=== PATIENT | male | born 1950 | race Caucasian/White ===

== ENCOUNTER → 2017-03-21 | Outpatient (CLI) | payer MEDICARE, OTHER, SELFPAY | PROVIDERS: Family Provider Family Medicine; PCP Family Medicine; Visit Provider Family Medicine | DX: E53.8 Deficiency of other specified B group vitamins (principal); G60.9 Hereditary and idiopathic neuropathy, unspecified; I35.1 Nonrheumatic aortic (valve) insufficiency; J44.9 Chronic obstructive pulmonary disease, unspecified; R29.898 Other symptoms and signs involving the musculoskeletal system | CPT/HCPCS: 36415; 80053; 82607; 84443; 85025 ==

== ENCOUNTER 2017-11-05 18:44 | Emergency (ER) | payer OTHER, SELFPAY ==
[2017-11-05 19:28] VITALS: BP 133/91; PULSE 97; RESP 20; TEMP 36.4; O2SAT 96; BMI 38.0
[2017-11-05] MEDS: TET,DIPH,PERTUSS(ACELL),VAC/PF 0.5 ML SYRINGE IM (20:11)
--- NOTE | 2017-11-05 20:12 | ED_ITS ---
HPI - Skin/Abscess/Foreign Bdy General Chief complaint: Skin/Abscess/Foreign Body Stated complaint: LEFT HAND FINGER LACERATION Time Seen by Provider: 11/05/17 19:37 Source: patient Mode of arrival: ambulatory Limitations: no limitations History of Present Illness HPI narrative: Patient is a 66-year-old male who presents with left index finger laceration. He was cutting vegetables for dinner when he cut his finger. He said it was bleeding a lot. No blood thinners. Denies numbness or tingling. No decreased range of motion. Bleeding stopped after pressure applied. Related Data Home Medications Medication Instructions Recorded Confirmed tamsulosin [Flomax] 0.4 mg PO QDAYP PRN #0 cap 01/07/13 09/14/17 cyanocobalamin (vitamin B-12) 1,000 mcg PO QDAY #0 04/04/17 09/14/17 naproxen sodium [Aleve] 660 mg PO QDAY #0 04/04/17 09/14/17 diphenhydramine 25 mg capsule 25 mg PO Q4-6H PRN 09/14/17 09/14/17 Previous Rx's Medication Instructions Recorded levothyroxine 0.137 mg PO HS #90 tab 11/15/16 albuterol sulfate [Proventil HFA] 2 puff INH Q4HP #6 inh 11/17/16 beclomethasone dipropionate [Qvar] 2 puff INH BID #3 inh 11/17/16 chlorthalidone 25 mg PO QDAY #90 tab 11/17/16 ipratropium-albuterol [Combivent 1 puff INH QID #12 inh 11/17/16 Respimat] hydrocodone 5 mg-acetaminophen 325 1 tab PO HSP PRN #30 tab 10/11/17 mg tablet Allergies Allergy/AdvReac Type Severity Reaction Status Date / Time animal dander [ANIMAL DANDER] Allergy Unknown Verified 11/05/17 19:32 crab [CRAB] Allergy Unknown Verified 11/05/17 19:32 pollen extracts Allergy Unknown Verified 11/05/17 19:32 [POLLEN EXTRACTS] Review of Systems Review of Systems GENERAL: Denies chills,fever HEENT: Denies throat pain RESPIRATORY: Denies dyspnea, cough, wheezing CARDIOVASCULAR: Denies chest pain, palpitations GASTROINTESTINAL: Denies nausea, vomiting MUSCULOSKELETAL: Denies extremity pain, injury SKIN: See HPI NEUROLOGIC: Denies weakness, dizziness, headache, numbness 8 point review of systems is negative except for those stated above and HPI REPLACED BY [facility] Medical History COPD (chronic obstructive pulmonary disease) (Chronic) Cervical spine disease (Chronic 2011) Eczema (Chronic) Emphysema/COPD (Chronic 1997) Hypothyroidism (Chronic 2014) CTS (carpal tunnel syndrome) (Resolved) Leukocytosis (Resolved) Prostate cancer (Resolved 2010) Thrombocytosis (Resolved) Surgical History History of spinal fusion (Resolved 2012) History of splenectomy (Resolved 1975) Status post wrist surgery (Resolved 2011) Family History Brother Thyroid cancer Mother Breast cancer Social History Smoking Status: Former smoker Exam Initial Vital Signs Initial Vital Signs: Vital Signs Temperature 97.5 F L 11/05/17 19:28 Pulse Rate 97 H 11/05/17 19:28 Respiratory Rate 20 11/05/17 19:28 Blood Pressure 133/91 H 11/05/17 19:28 Pulse Oximetry 96 11/05/17 19:28 GENERAL: Well-appearing, well-nourished and in no acute distress. CARDIOVASCULAR: peripheral pulses in tact, cap refill <2 sec RESPIRATORY: No respiratory distress, speaks in full sentences without difficulty EXTREMITIES: Normal range of motion, no clubbing or edema. Neurovascularly intact NEUROLOGICAL: Cranial nerves II through XII grossly intact. Normal gait and speech. SKIN: 2 cm laceration distal palmar side left index finger good skin approximation deep structures intact no foreign body Procedures Laceration Repair Laceration 1: Site: hand Side (If applicable): left Size (cm): 2 Description: linear Depth: simple, single layer Size (cm): other (Steri-Strips, Surgicel) Course Orders Ordered: Discontinued Medications Diphtheria/Tetanus/Acell Pertussis (Adacel) 0.5 ml IM .ONCE ONE Stop: 11/05/17 20:03 Last Admin: 11/05/17 20:11 Dose: 0.5 ml Vital Signs - 8 hr 11/05/17 19:28 Temperature 97.5 F L Pulse Rate 97 H Respiratory Rate 20 Blood Pressure 133/91 H Pulse Oximetry 96 Discharge Plan Departure Patient Disposition: Home, Self-Care Clinical Impression: Laceration of left index finger Discharge Date/Time: 11/05/17 20:20 Interventions: ED Discharge Assessment Last Done: 11/05/17 20:20 Instructions: DI for Laceration Repair Steri-Strips Activity Restrictions/Additional Instructions: *You have been diagnosed with laceration left index *What to do: May remove bandage not tomorrow. Steri-Strips will fall off on their own *Continue to take medications as directed *Follow up with your primary care provider in 2-3 days *Return to ER if you should have redness, pus, swelling or any new, worsening or concerning symptoms Prescriptions: No Action tamsulosin [Flomax] 0.4 MG capsule,extended release 24hr 0.4 mg PO QDAYP PRNQty: 0 RF: 0 levothyroxine 137 MCG tablet 0.137 mg PO HS Qty: 90 RF: 3 chlorthalidone 25 MG tablet 25 mg PO QDAY Qty: 90 RF: 3 beclomethasone dipropionate [Qvar] 80 MCG/PUFF aerosol 2 puff INH BID Qty: 3 RF: 3 albuterol sulfate [Proventil HFA] 90 MCG/PUFF HFA aerosol inhaler 2 puff INH Q4HP Qty: 6 RF: 3 ipratropium-albuterol [Combivent Respimat] 4 GM mist 1 puff INH QID Qty: 12 RF: 11 cyanocobalamin (vitamin B-12) 1,000 MCG tablet extended release 1,000 mcg PO QDAY Qty: 0 RF: 0 naproxen sodium [Aleve] 220 MG tablet 660 mg PO QDAY Qty: 0 RF: 0 hydrocodone-acetaminophen [[place]] 5-325 mg tablet 1 tab PO HSP PRN (Reason: pain) Qty: 30 RF: 0 diphenhydramine HCl [Allergy (diphenhydramine)] 25 mg capsule 25 mg PO Q4-6H PRNRF: 0 Referrals: Kyree Hudson MD [Primary Care Provider] -
--- NOTE | 2017-11-05 20:19 | PC.NURSE ---
lt 2nd digit laceration, repaired with steri strips and surgicell by MD prior to RN contact, bleeding controlled, dressed with gauze and coban per order, distal cms intact
== END 2017-11-05 20:20 | disposition home or self-care (01) ==
PROVIDERS: Emergency Provider Emergency Medicine; Family Provider Family Medicine; PCP Family Medicine
DX: S61.211A Laceration without foreign body of left index finger without damage to nail, initial encounter (principal); W26.0XXA Contact with knife, initial encounter
CPT/HCPCS: 12001; 90471; 99282; 99283; 90715

== ENCOUNTER → 2017-11-20 08:49 | Outpatient (CLI) | payer OTHER, SELFPAY ==
[2017-11-20 10:47] LABS: Erythrocyte Sedimentation Rate 4 MM/HR (0-15)
[2017-11-20 11:02] LABS: Alanine Aminotransferase 32 IU/L (21-72); Albumin 4.1 g/dL (3.5-5.0); Albumin Globulin Ratio 1.4 (1.0-2.8); Alkaline Phosphatase 67 U/L (38-126); Aspartate Aminotransferase 25 IU/L (17-59); BUN Creatinine Ratio 28.9 (6-22); Bilirubin Total 0.4 mg/dL (0.2-1.3); Blood Urea Nitrogen 26 mg/dL (9-20); C-Reactive Protein Quant 0.8 mg/dL (<1.0); Carbon Dioxide 31 mmol/L (22-32); Chloride 101 mmol/L (98-107); Estimated Glomerular Filt Rate > 60.0 mL/min (>60); Glucose 83 mg/dL (80-110); HEMOLYSIS < 15 (0-50); Lactate Dehydrogenase 579 U/L (313-618); Sodium 141 mmol/L (137-145); Total Protein 7.1 g/dL (6.3-8.2)
[2017-11-20 11:09] LABS: Potassium 5.4 mmol/L (3.4-5.1)
[2017-11-21 15:04] LABS: Add Manual Diff / Slide Review NO; Basophils Percent Auto 1.5 % (0-2); Eosinophils Percent Auto 7.9 % (2-4); Hematocrit 44.5 % (41-53); Hemoglobin 14.8 g/dL (13.5-17.5); Lymphocytes Percent Auto 20.3 % (25-40); Mean Corpuscular HGB Conc 33.3 % (30-36); Mean Corpuscular Hemoglobin 30.8 PG (26-34); Mean Corpuscular Volume 92.5 fL (80-100); Monocytes Percent Auto 12.5 % (3-14); Neutrophils Absolute Auto 8300 /uL (3000-5900); Neutrophils Percent Auto 57.8 % (50-75); Platelet Count 565 X10^3/uL (150-400); Red Blood Cell Count 4.81 X10^6/uL (4.5-5.9); Red Cell Distribution Width 13.3 % (11.6-14.8); White Blood Cell Count 14.4 X10^3/uL (4.5-11.0)
--- NOTE | 2017-12-05 11:25 | ONC.NAV ---
Description: T/C re: care plan status/transfer of care clarification Activity: Called pt to clarify what his plan is for continued oncologic care. He no-showed at [facility] yesterday, after having had his records faxed over there several weeks ago. He had initially self-referred there due to wanting to have his bone marrow bx done in their OR, which wasn't possible here at . Pt states that he forgot about the appointment yesterday, however, it was his understanding that he was waiting for blood test results to be in before he came back for another appointment. He ultimately stated that he will be in [place] all of December, and would like [facility] to call him back 01/08 to return to their clinic. Once a plan has been established, he will plan to transfer his care back to . Will relay this info to Mg.
== END ==
PROVIDERS: Family Provider Family Medicine; PCP Family Medicine; Visit Provider Internal Medicine Hematology & Oncology
DX: D47.3 Essential (hemorrhagic) thrombocythemia (principal)
CPT/HCPCS: 36415; 80053; 83615; 85025; 85651; 86140

== ENCOUNTER → 2018-01-17 15:12 | Outpatient (CLI) | payer OTHER, SELFPAY ==
[2018-01-17 16:07] LABS: Alanine Aminotransferase 70 IU/L (21-72); Albumin Globulin Ratio 1.4 (1.0-2.8); Alkaline Phosphatase 66 U/L (38-126); Aspartate Aminotransferase 46 IU/L (17-59); BUN Creatinine Ratio 35.5 (6-22); Bilirubin Total 0.4 mg/dL (0.2-1.3); Blood Urea Nitrogen 39 mg/dL (9-20); Calcium 9.5 mg/dL (8.4-10.2); Carbon Dioxide 30 mmol/L (22-32); Chloride 104 mmol/L (98-107); Estimated Glomerular Filt Rate > 60.0 mL/min (>60); Globulin 2.8 g/dL (1.7-4.1); Glucose 108 mg/dL (80-110); HEMOLYSIS < 15 (0-50); Potassium 4.4 mmol/L (3.4-5.1); Sodium 144 mmol/L (137-145); Total Protein 6.8 g/dL (6.3-8.2)
== END ==
PROVIDERS: PCP Family Medicine; Visit Provider Internal Medicine
DX: E87.5 Hyperkalemia (principal); Z82.49 Family history of ischemic heart disease and other diseases of the circulatory system
CPT/HCPCS: 36415; 80053

== ENCOUNTER → 2018-08-12 14:51 | Outpatient (CLI) | payer OTHER, SELFPAY ==
[2018-08-12 15:36] LABS: Add Manual Diff / Slide Review NO; Basophils Absolute Auto 100 /uL (0-100); Basophils Percent Auto 0.6 % (0-2); Eosinophils Absolute Auto 800 /uL (0-450); Eosinophils Percent Auto 5.7 % (2-4); Hematocrit 43.6 % (41-53); Hemoglobin 14.1 g/dL (13.5-17.5); Lymphocytes Absolute Auto 2900 /uL (1100-4500); Lymphocytes Percent Auto 20.9 % (25-40); Mean Corpuscular HGB Conc 32.3 % (30-36); Mean Corpuscular Hemoglobin 29.8 PG (26-34); Mean Corpuscular Volume 92.1 fL (80-100); Monocytes Absolute Auto 1400 /uL (0-900); Neutrophils Absolute Auto 8800 /uL (1500-7000); Neutrophils Percent Auto 62.8 % (50-75); Platelet Count 570 X10^3/uL (150-400); Red Blood Cell Count 4.73 X10^6/uL (4.5-5.9); Red Cell Distribution Width 13.2 % (11.6-14.8)
[2018-08-12 15:57] LABS: Alanine Aminotransferase 36 IU/L (21-72); Albumin 3.8 g/dL (3.5-5.0); Albumin Globulin Ratio 1.3 (1.0-2.8); Alkaline Phosphatase 75 U/L (38-126); Aspartate Aminotransferase 25 IU/L (17-59); BUN Creatinine Ratio 25.6 (6-22); Bilirubin Total 0.2 mg/dL (0.2-1.3); Blood Urea Nitrogen 23 mg/dL (9-20); Calcium 8.6 mg/dL (8.4-10.2); Carbon Dioxide 25 mmol/L (22-32); Chloride 105 mmol/L (98-107); Cholesterol 139 mg/dL (140-199); Estimated Glomerular Filt Rate > 60.0 mL/min (>60); Glucose 89 mg/dL (80-110); HDL Cholesterol 46 mg/dL (40-60); HEMOLYSIS < 15 (0-50); LDL Cholesterol Calculated 64 mg/dL (<100); Potassium 4.1 mmol/L (3.4-5.1); Sodium 141 mmol/L (137-145); Total Protein 6.8 g/dL (6.3-8.2); Triglycerides 143 mg/dL (35-150)
[2018-08-12 16:14] LABS: Free T4, Direct Thyroxine 0.82 ng/dL (0.78-2.19)
[2018-08-12 16:29] LABS: Thyroid Stimulating Hormone 7.87 uIU/mL (0.47-4.68)
[2018-08-12 20:14] LABS: Prostate Specific Antigen < 0.064 ng/mL (0.10-4.00)
== END ==
PROVIDERS: PCP Internal Medicine; Visit Provider Urology
DX: C61 Malignant neoplasm of prostate (principal); E03.9 Hypothyroidism, unspecified; E66.9 Obesity, unspecified; D47.3 Essential (hemorrhagic) thrombocythemia; D72.829 Elevated white blood cell count, unspecified
CPT/HCPCS: 36415; 80053; 80061; 84153; 84439; 84443; 85025

== ENCOUNTER → 2018-09-20 10:38 | Outpatient (CLI) | payer OTHER, SELFPAY ==
[2018-09-20 11:50] LABS: Free T4, Direct Thyroxine 1.18 ng/dL (0.78-2.19)
[2018-09-20 12:04] LABS: Thyroid Stimulating Hormone 2.11 uIU/mL (0.47-4.68)
== END ==
PROVIDERS: PCP Internal Medicine; Visit Provider Nurse Practitioner
DX: E03.9 Hypothyroidism, unspecified (principal)
CPT/HCPCS: 36415; 84439; 84443

== ENCOUNTER → 2019-03-21 14:33 | Outpatient (CLI) | payer SELFPAY ==
[2019-03-21 15:30] LABS: Alanine Aminotransferase 23 IU/L (<50); Albumin 4.1 g/dL (3.5-5.0); Albumin Globulin Ratio 1.3 (1.0-2.8); Alkaline Phosphatase 77 U/L (38-126); Aspartate Aminotransferase 26 IU/L (17-59); BUN Creatinine Ratio 34.4 (6-22); Bilirubin Total 0.4 mg/dL (0.2-1.3); Blood Urea Nitrogen 31 mg/dL (9-20); Calcium 9.1 mg/dL (8.4-10.2); Carbon Dioxide 29 mmol/L (22-32); Chloride 101 mmol/L (98-107); Estimated Glomerular Filt Rate > 60.0 mL/min (>60); Globulin 3.2 g/dL (1.7-4.1); Glucose 104 mg/dL (80-110); HEMOLYSIS < 15 (0-50); Potassium 4.3 mmol/L (3.4-5.1); Sodium 138 mmol/L (137-145); Total Protein 7.3 g/dL (6.3-8.2)
[2019-03-21 16:00] LABS: Free T4, Direct Thyroxine 1.17 ng/dL (0.78-2.19)
[2019-03-21 16:14] LABS: Thyroid Stimulating Hormone 1.13 uIU/mL (0.47-4.68)
== END ==
PROVIDERS: PCP Internal Medicine; Visit Provider Internal Medicine
DX: E03.9 Hypothyroidism, unspecified (principal); G60.9 Hereditary and idiopathic neuropathy, unspecified
CPT/HCPCS: 36415; 80053; 84439; 84443

== ENCOUNTER → 2019-03-24 10:00 | Outpatient (CLI) | payer SELFPAY ==
--- NOTE | 2019-03-24 10:02 | DI.RAD.S_ITS ---
PROCEDURE: XR CHEST 2V INDICATIONS: cough TECHNIQUE: 2 views of the chest were acquired. COMPARISON: [facility], , RIBS UNILATERAL WITH PA CXR, 05/17/2015, 15:42. [facility], , CHEST 2 VIEW, 08/04/2011, 8:52. [facility], CR, CHEST 2 VIEW, 11/30/2010, 14:20. FINDINGS: Surgical changes and devices: Low cervical anterior fusion plate is noted, not present on the comparison chest plain films from 2011 but was present on and plain film series from May 2015. Lungs and pleura: Lungs are abnormal with a mild interstitial prominence. There is a small subpulmonic right pleural effusion and no pneumothoraX bilaterally. Mediastinum: Mediastinal contours are normal. Heart size is normal. Bones and chest wall: No suspicious bony abnormalities. Soft tissues appear unremarkable. IMPRESSION: Small subpulmonic right pleural effusion, chronic mild interstitial prominence. No worsening pleural effusion is seen. Dictated by: Cruz Elias M.D. on 03/24/2019 at 11:36 Approved by: Cruz Elias M.D. on 03/24/2019 at 11:37
--- NOTE | 2019-03-24 10:02 | DI.RAD.S_ITS ---
PROCEDURE: XR KNEE LT 3V INDICATIONS: left knee pain TECHNIQUE: 3 views of the knee were acquired. COMPARISON: None. FINDINGS: Bones: No fractures or dislocations but there is a moderately severe degree of degenerative knee joint osteoarthritis with medial compartment with near [id number] articulation a mild to moderate degree of lateral compartment and patellofemoral joint degenerative osteoarthritis also can be seen.. No suspicious bony lesions. Soft tissues: No joint effusion. No suspicious soft tissue calcifications. IMPRESSION: Tricompartmental degenerative knee joint osteoarthritis without effusion or loose body. Moderately severe osteoarthritis is present at the medial compartment. Dictated by: Cruz Elias M.D. on 03/24/2019 at 11:37 Approved by: Cruz Elias M.D. on 03/24/2019 at 11:39
== END ==
PROVIDERS: PCP Internal Medicine; Visit Provider Internal Medicine
DX: R05 Cough (principal); M25.562 Pain in left knee
CPT/HCPCS: 71046; 73562

== ENCOUNTER → 2019-10-03 08:26 | Outpatient (CLI) | payer OTHER, SELFPAY ==
[2019-10-03 09:51] LABS: Prostate Specific Antigen < 0.064 ng/mL (0.10-4.00)
== END ==
PROVIDERS: PCP Internal Medicine; Referring Provider Urology; Visit Provider Urology
DX: Z85.46 Personal history of malignant neoplasm of prostate (principal)
CPT/HCPCS: 36415; 84153

== ENCOUNTER 2019-10-11 13:52 | Emergency (ER) | payer OTHER, SELFPAY ==
[2019-10-11 14:09] VITALS: BP 132/88; PULSE 119; RESP 26; TEMP 37.2; O2SAT 93; BMI 48.4
[2019-10-11 14:40] VITALS: BP 132/88; PULSE 109; RESP 14; O2SAT 94
[2019-10-11 14:55] LABS: Add Manual Diff / Slide Review NO; Basophils Absolute Auto 200 /uL (0-100); Basophils Percent Auto 1.2 % (0-2); Eosinophils Absolute Auto 600 /uL (0-450); Eosinophils Percent Auto 3.5 % (2-4); Hematocrit 43.3 % (41-53); Hemoglobin 14.3 g/dL (13.5-17.5); Lymphocytes Absolute Auto 2500 /uL (1100-4500); Lymphocytes Percent Auto 15.6 % (25-40); Mean Corpuscular HGB Conc 32.9 % (30-36); Mean Corpuscular Volume 91.2 fL (80-100); Monocytes Absolute Auto 1400 /uL (0-900); Monocytes Percent Auto 8.3 % (3-14); Neutrophils Absolute Auto 11600 /uL (1500-7000); Neutrophils Percent Auto 71.4 % (50-75); Platelet Count 532 X10^3/uL (150-400); Red Blood Cell Count 4.75 X10^6/uL (4.5-5.9); Red Cell Distribution Width 14.4 % (11.6-14.8); White Blood Cell Count 16.3 X10^3/uL (4.5-11.0)
--- NOTE | 2019-10-11 15:10 | DI.CT.S_ITS ---
PROCEDURE: CT CHEST ABD PEL W CON INDICATIONS: fall onto ribs, sob, abd pain TECHNIQUE: After the administration of intravenous contrast, 5 mm thick sections acquired from the lung apices to the symphysis. 2.5 mm thick coronal and sagittal reformats were acquired. Additional 7 mm thick coronal maximum intensity projection (MIP) reformats acquired through the lungs. Optional 10-minute delayed imaging may be performed from the kidneys to the bladder. For radiation dose reduction, the following was used: automated exposure control, adjustment of mA and/or kV according to patient size. COMPARISON: None. FINDINGS: Image quality: Excellent. CHEST: Lungs: No pulmonary contusions or lacerations. No acute airspace opacities. No pneumothorax or hemothorax. Central and peripheral airways appear patent and normal in caliber. Mediastinum: No mediastinal hematomas. Heart size is normal. Coronary artery calcifications. No pericardial effusion. Thoracic aorta and pulmonary arteries demonstrate normal size and enhancement. No mediastinal or hilar adenopathy. Esophagus is normal in caliber. Hiatal hernia containing abundant fat without herniated stomach. Chest wall: Acute left fifth and sixth anterior lateral rib fractures. Multiple old healed left rib fractures. Acute right anterior sixth and seventh rib fractures. No subcutaneous emphysema. No axillary or supraclavicular adenopathy. Thyroid gland is unremarkable. ABDOMEN: Solid organs: Liver is normal in size and enhancement, without lacerations. Gallbladder is unremarkable. Biliary system is non-dilated. Pancreas enhances normally, without transection. Spleen is normal in size and enhancement, without lacerations. No adrenal hematomas. Both kidneys enhance normally, without hydronephrosis or lacerations. Peritoneum and bowel: No free fluid or air. Unenhanced bowel loops demonstrate normal wall thickness and caliber. Nodes and vessels: No retroperitoneal or mesenteric adenopathy. Aorta and inferior vena cava are normal in size and enhancement. Miscellaneous: No ventral hernias. PELVIS: Genitourinary: Bladder wall thickness is normal. Prostate implant seeds. Miscellaneous: No inguinal hernias or adenopathy. Bones: Pelvic ring and hip joints appear intact. No acute vertebral compression fractures. Old T4 compression fracture. No lytic or blastic bony lesions. Incidental note is made of the presence of severe bilateral bony foraminal narrowing at L5-S1. Remote lower cervical ACDF. IMPRESSION: 1. Acute fractures of the left fifth and sixth anterolateral ribs and right sixth and seventh anterior ribs. 2. No evidence of pneumothorax. 3. Numerous old rib fractures, old compression fracture. 4. Prostate implant seeds. 5. No evidence of metastatic disease. Dictated by: Negro Shaikh M.D. on 10/11/2019 at 14:55 Approved by: Negro Shaikh M.D. on 10/11/2019 at 15:07
[2019-10-11 15:13] LABS: Alanine Aminotransferase 14 IU/L (<50); Albumin 4.1 g/dL (3.5-5.0); Albumin Globulin Ratio 1.2 (1.0-2.8); Alkaline Phosphatase 94 U/L (38-126); Aspartate Aminotransferase 26 IU/L (17-59); BUN Creatinine Ratio 32.6 (6-22); Bilirubin Total 0.5 mg/dL (0.2-1.3); Blood Urea Nitrogen 29 mg/dL (9-20); Calcium 9.2 mg/dL (8.4-10.2); Carbon Dioxide 31 mmol/L (22-32); Chloride 102 mmol/L (98-107); Estimated Glomerular Filt Rate > 60.0 mL/min (>60); Globulin 3.5 g/dL (1.7-4.1); Glucose 146 mg/dL (80-110); HEMOLYSIS < 15 (0-50); Lipase 62 U/L (23-300); Potassium 4.1 mmol/L (3.4-5.1); Sodium 139 mmol/L (137-145); Total Protein 7.6 g/dL (6.3-8.2)
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
[2019-10-11 16:10] VITALS: BP 138/91; PULSE 105; RESP 15; O2SAT 93
[2019-10-11 17:10] VITALS: BP 142/93; PULSE 96; RESP 16; O2SAT 95
[2019-10-11] MEDS: HYDROCODONE/ACET 5/325 TABLET 1 TAB PO (17:18)
[2019-10-11] MEDS: LIDOCAINE PATCH 1 EACH ADH..PATCH TOP (17:18)
== END 2019-10-11 17:38 | disposition home or self-care (01) ==
PROVIDERS: Emergency Provider Nurse Practitioner Family; PCP Internal Medicine
DX: S22.43XA Multiple fractures of ribs, bilateral, initial encounter for closed fracture (principal); R06.02 Shortness of breath; J44.9 Chronic obstructive pulmonary disease, unspecified; W01.198A Fall on same level from slipping, tripping and stumbling with subsequent striking against other object, initial encounter
CPT/HCPCS: 71260; 74177; 80053; 81003; 83690; 85025; 86850; 86900; 86901; 93005; 99284; Q9967

== ENCOUNTER → 2019-12-18 13:37 | Outpatient (CLI) | payer OTHER, SELFPAY ==
[2019-12-22 09:44] LABS: COVID19 Sendout NOT DETECTED (Not Detect)
== END ==
PROVIDERS: PCP Internal Medicine; Visit Provider Physician Assistant
DX: Z11.59 Encounter for screening for other viral diseases (principal)
CPT/HCPCS: 87635

== ENCOUNTER → 2019-12-21 08:22 | Outpatient (CLI) | payer OTHER, SELFPAY ==
[2019-12-21 08:49] LABS: COVID19 -Nasal RAPID Negative (Negative)
== END ==
PROVIDERS: PCP Internal Medicine; Visit Provider Nurse Practitioner
DX: Z11.59 Encounter for screening for other viral diseases (principal)
CPT/HCPCS: 87635

== ENCOUNTER 2020-02-02 15:05 | Emergency (ER) | payer OTHER, SELFPAY ==
--- NOTE | 2020-02-02 | DI.RAD.S_ITS ---
PROCEDURE: XR SHOULDER LT MIN 2V INDICATIONS: KNOWN HUMERAL FRACTURE TECHNIQUE: 3 views of the shoulder were acquired. COMPARISON: [facility], CR, XR HUMERUS LT 2V, 02/02/2020, 16:04. Outside Facility, RG, XR SHOULDER 2V LEFT, 01/20/2020, 14:52. FINDINGS: Bones: This patient has a comminuted, impacted humeral neck fracture. This fracture was previously on the 01/20/2028 study, yet the fracture now appears more impacted. Numeral head is subluxed inferiorly within the glenoid fossa, yet without a randall dislocation. Cervical spine fixation hardware is seen. No suspicious lytic or blastic lesions are seen. Soft tissues: No suspicious soft tissue calcifications. The visualized lung demonstrates an unremarkable appearance. IMPRESSION: There is worsening of the previously seen humeral neck fracture, with greater impaction on the current study. Dictated by: Martín Forde M.D. on 02/02/2020 at 15:22 Approved by: Martín Forde M.D. on 02/02/2020 at 15:23
[2020-02-02 15:17] VITALS: BP 176/91; PULSE 103; RESP 16; TEMP 37.1; O2SAT 94; BMI 42.4
--- NOTE | 2020-02-02 15:30 | DI.RAD.S_ITS ---
PROCEDURE: XR HUMERUS LT 2V INDICATIONS: s/p fracture 1 wk ago in [place] TECHNIQUE: 2 views of the humerus were acquired. COMPARISON: Outside Facility, RG, XR SHOULDER 2V LEFT, 01/20/2020, 14:52. FINDINGS: Bones: Comminuted fracture of the left humeral neck and possibly humeral head. No dislocations. No suspicious bony lesions. Soft tissues: No suspicious soft tissue calcifications. IMPRESSION: Comminuted fracture of the left humeral neck and possibly humeral head Dictated by: Negro Shaikh M.D. on 02/02/2020 at 16:26 Approved by: Negro Shaikh M.D. on 02/02/2020 at 16:28
[2020-02-02] MEDS: MORPHINE 4 MG/ML INJ IV (15:39)
--- NOTE | 2020-02-02 15:40 | ED.UPPEXIN ---
HPI - Extremity Injury (Upper) <ORTIZ Gaines - Last Filed: 02/03/20 01:03> General Chief Complaint: Extremity Injury, Upper Stated Complaint: FRACTURE LEFT HUMERUS Time Seen by Provider: 02/02/20 15:14 Source: patient Mode of arrival: Wheelchair Limitations: physical limitation History of Present Illness HPI narrative: This is a 69-year-old male, former smoker, with medical history of hypertension, COPD, idiopathic peripheral neuropathy, low back pain presents to ED with family with chief complain of left humerus fracture. Patient reports he was vacationing in [facility] and he accidentally slipped and fell on left shoulder a week ago. He was evaluated at [facility] with x-ray test and was told he has a fracture in humerus. He has been managing his pain with [id number] aspirin and few tabs of tramadol. Patient reports 10/10 pain and bruise in left upper arm and posterior shoulder. Patient reports intact sensation distally and is able to move all fingers. Patient return to home this morning and came in to ED for an evaluation. Patient right dominant hand. Patient denies injury to skin with fracture, denies previous injury to left arm. Patient denies chest pain, breathing difficulty, or dizziness. Related Data Home Medications Medication Instructions Recorded Confirmed cyanocobalamin (vitamin B-12) 1,000 mcg PO QDAY #0 04/04/17 12/09/19 diphenhydramine HCl 25 mg capsule 25 mg PO Q4-6H PRN 09/14/17 12/09/19 naproxen sodium 220 mg capsule 660 mg PO DAILY cap 01/31/18 12/09/19 Previous Rx's Medication Instructions Recorded fluticasone propionate 50 2 spray NASAL BEDTIME #16 gram 03/24/19 mcg/actuation nasal spray,suspension levothyroxine 150 mcg tablet See Rx Instructions .ROUTE 05/12/19 .COMPLEX #90 tab chlorthalidone 25 mg tablet 25 mg PO QDAY #90 tab 08/22/19 duloxetine 30 mg capsule,delayed 30 mg PO DAILY #90 cap 08/22/19 release albuterol sulfate 90 mcg/actuation 2 puff INHALATION Q4HP PRN #2 10/06/19 aerosol inhaler device metoprolol succinate 50 mg capsule 50 mg PO DAILY #90 each 12/09/19 sprinkle, ext. release 24 hr tramadol 50 mg tablet 50 mg PO TID PRN #120 tab 12/09/19 ipratropium 20 mcg-albuterol 100 1 puff INHALATION QID #8 gram 12/17/19 mcg/actuation mist for inhalation ciclesonide 160 mcg/actuation 2 puff INHALATION BID #6.1 gram 01/14/20 aerosol inhaler hydrocodone-acetaminophen [[place]] 1 tab PO Q6H PRN #20 tab 02/02/20 Allergies Allergy/AdvReac Type Severity Reaction Status Date / Time animal dander [ANIMAL DANDER] Allergy Unknown Verified 12/18/19 13:35 crab [CRAB] Allergy Unknown Verified 12/18/19 13:35 pollen extracts Allergy Unknown Verified 12/18/19 13:35 [POLLEN EXTRACTS] Review of Systems <ORTIZ Gaines - Last Filed: 02/03/20 01:03> Review of Systems Narrative: General: Denies fever, chills, fatigue, malaise, sweats. HEENT: Denies sinus pain, ear pain, sore throat, difficulty swallowing, dizziness. Respiratory: Denies dyspnea, cough, wheezing, hemoptysis, sputum. Cardiovascular: Denies chest pain, palpitations, orthopnea, edema. Gastrointestinal: Denies nausea, vomiting, abdominal pain, diarrhea, constipation, melena. Musculoskeletal: See HPI Skin: See HPI Neurologic: Denies weakness, headache, numbness, change in speech, confusion, seizures, incoordination. Psychiatric: No concerning psychosocial issues. Patient History <ORTIZ Gaines - Last Filed: 02/03/20 01:03> Medical History Acquired insufficiency of aortic valve (Chronic 10/08/15) Chronic obstructive pulmonary disease (Chronic 01/19/11) Cobalamin deficiency (Chronic) CTS (carpal tunnel syndrome) (Resolved) Eczema (Chronic) Essential hypertension (Chronic) History of malignant neoplasm of prostate (Inactive) Hypothyroidism (Chronic 08/21/14) Idiopathic peripheral neuropathy (Chronic) Leukocytosis (Chronic 01/19/11) Low back pain of over 3 months duration (Chronic 11/15/16) Obesity (Chronic 01/19/11) Prostate cancer (Resolved 2010) Thrombocytosis (Chronic 01/19/11) Weakness of right lower extremity (Chronic 11/15/16) Surgical History History of spinal fusion (Resolved 2012) History of splenectomy (Resolved 1975) Status post wrist surgery (Resolved 2011) Family History Brother Thyroid cancer Mother Breast cancer Father No problems noted. 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 [employer]: [employer] travel history: recent () leisure activities: art (Photography), volunteer work and other (Traveling) Smoking Status: Former smoker Tobacco: How many years used: 15 Smokeless tobacco user: other (Cigarettes) quit status: quit date established (1989) second hand exposure: No alcohol intake: former substance use type: does not use Smoking Status: Former smoker alcohol intake frequency: 0-2 drinks per day Substance Use Type: does not use Exam <ORTIZ Gaines - Last Filed: 02/03/20 01:03> Narrative Exam Narrative: General appearance: well developed, well nourished, in no acute distress. Head: normocephalic, atraumatic, no scalp lesions, non-tender. ENT: Hearing grossly intact. Airway patent. Neck/Thyroid: neck supple, full range of motion, no visible masses or meningeal signs. No JVD, non-tender without lymphadenopathy. Skin: Dark ecchymosis in left upper arm. No skin injury associated with this. Warm and dry and appropriate color for ethnicity. Heart: no clubbing, no cyanosis, no edema. S1 and S2 normal. RRR w/o murmurs, clicks, or bruits. Lungs: Breathing even and slightly labored. No stridor. No accessory muscles used. Able to speak in full sentences. Chest: normal shape and expansion. Abdomen: non-obese, non-distended. Neurologic: alert and oriented. Cognitive exam, EXPERT WITNESS and PNS grossly intact on informal exam. Psych: good eye contact, normal affect. Initial Vital Signs Initial Vital Signs: Vital Signs Temperature 98.8 F 02/02/20 15:17 Pulse Rate 103 H 02/02/20 15:17 Respiratory Rate 16 02/02/20 15:17 Blood Pressure 176/91 H 02/02/20 15:17 Pulse Oximetry 94 02/02/20 15:17 Extrem Left upper extremity: shoulder/upper arm Details: abnormal to inspection, tenderness, abnormal ROM Details: held in an abnormal fashion Details: in ADduction; bt not in ABduction (Unable to abduct affected arm due to pain), pain with active ROM and pain with passive ROM and ecchymosis (Left upper arm); no lacerations, no deformity and no unsual warmth and hand Details: normal to inspection, neuromotor exam normal, neurosensory exam normal Details: radial nerve sensory function normal and ulnar nerve sensory function normal, vascular exam Details: radial pulse present and normal capillary refill, normal ROM of fingers and no swelling <Nehemias Parker DO - Last Filed: 02/03/20 07:40> Initial Vital Signs Initial Vital Signs: Vital Signs Temperature 98.8 F 02/02/20 15:17 Pulse Rate 103 H 02/02/20 15:17 Respiratory Rate 16 02/02/20 15:17 Blood Pressure 176/91 H 02/02/20 15:17 Pulse Oximetry 94 02/02/20 15:17 Procedures <ORTIZ Gaines - Last Filed: 02/03/20 01:03> Orthopedic Splinting/Casting Injury #1: Side: left Upper Extremity Injury Location: upper arm Upper Extremity Immobilizer: sling/shoulder immobilizer Post splinting neuro exam: intact Post splinting vascular exam: intact Placed by: Nursing Scores <ORTIZ Gaines Last Filed: 02/03/20 01:03> GCS Suhail coma scale eye opening: Spontaneous [place] coma scale verbal response: Orientated Suhail coma scale motor response: Obey commands Suhail coma scale total score: 15 Course <ORTIZ Gaines - Last Filed: 02/03/20 01:03> Orders Ordered: Discontinued Medications Morphine Sulfate (Morphine) 4 mg IV NOW ONE Stop: 02/02/20 15:31 Last Admin: 02/02/20 15:39 Dose: 4 mg Documented by: LYNN Morphine Sulfate (Morphine) 2 mg IV NOW ONE Stop: 02/02/20 17:51 Last Admin: 02/02/20 18:09 Dose: 2 mg Documented by: LYNN Consultations Consultation #1: COnsulted Dr. Fontenot with physical findings, x-ray test results. Recommended shoulder immobilizer affected arm and have him follow up at Orthopedic Clinic. Time: 16:45 Vital Signs Vital signs: Vital Signs - 8 hr 02/02/20 17:09 Pulse Rate 92 H Respiratory Rate 18 Blood Pressure 157/82 H Pulse Oximetry 98 <Nehemias Parker DO - Last Filed: 02/03/20 07:40> Orders Ordered: Discontinued Medications Morphine Sulfate (Morphine) 4 mg IV NOW ONE Stop: 02/02/20 15:31 Last Admin: 02/02/20 15:39 Dose: 4 mg Documented by: LYNN Morphine Sulfate (Morphine) 2 mg IV NOW ONE Stop: 02/02/20 17:51 Last Admin: 02/02/20 18:09 Dose: 2 mg Documented by: LYNN Vital Signs Vital signs: Vital Signs - 8 hr 02/02/20 17:09 Pulse Rate 92 H Respiratory Rate 18 Blood Pressure 157/82 H Pulse Oximetry 98 MDM - Extremity Injury (Upper) <ORTIZ Gaines - Last Filed: 02/03/20 01:03> Differential Diagnosis Differential diagnosis: Likely dislocation of shoulder, fracture of humerus and other (Elbow fracture, forearm fracture) Medical Records Attestation: I reviewed the patient's medical records. Imaging Data XR-Humerus LT: Radiologist's Impression: [address] [address] XRay Report Signed Patient: Tanner Hauser HMR#: [id number] : 2Acct:[id number] Age/Sex: 69 / MDate of Service: 02/02/20 Loc: ED Accession Number: [id number] Procedure: XR humerus LT 2V Ordering Provider: Guzman Tamez PROCEDURE: XR HUMERUS LT 2V INDICATIONS: s/p fracture 1 wk ago in [place] TECHNIQUE: 2 views of the humerus were acquired. COMPARISON: Outside Facility, RG, XR SHOULDER 2V LEFT, 01/20/2020, 14:52. FINDINGS: Bones: Comminuted fracture of the left humeral neck and possibly humeral head. No dislocations. No suspicious bony lesions. Soft tissues: No suspicious soft tissue calcifications. IMPRESSION: Comminuted fracture of the left humeral neck and possibly humeral head Dictated by: Negro Shaikh M.D. on 02/02/2020 at 16:26 Approved by: Negro Shaikh M.D. on 02/02/2020 at 16:28 XR-Shoulder LT: Radiologist's Impression: [address] [address] XRay Report Signed Patient: Tanner Hauser R#: [id number] : [id number] Age/Sex: 69 / MDate of Service: 02/02/20 Loc: ED Accession Number: [id number] Procedure: XR shoulder LT min 2V Ordering Provider: Guzman Tamez PROCEDURE: XR SHOULDER LT MIN 2V INDICATIONS: KNOWN HUMERAL FRACTURE TECHNIQUE: 3 views of the shoulder were acquired. COMPARISON: [facility], CR, XR HUMERUS LT 2V, 02/02/2020, 16:04. Outside Facility, RG, XR SHOULDER 2V LEFT, 01/20/2020, 14:52. FINDINGS: Bones: This patient has a comminuted, impacted humeral neck fracture. This fracture was previously on the 01/20/2028 study, yet the fracture now appears more impacted. Numeral head is subluxed inferiorly within the glenoid fossa, yet without a randall dislocation. Cervical spine fixation hardware is seen. No suspicious lytic or blastic lesions are seen. Soft tissues: No suspicious soft tissue calcifications. The visualized lung demonstrates an unremarkable appearance. IMPRESSION: There is worsening of the previously seen humeral neck fracture, with greater impaction on the current study. Dictated by: Martín Forde M.D. on 02/02/2020 at 15:22 Approved by: Martín Forde M.D. on 02/02/2020 at 15:2 XR-Elbow LT: Radiologist's Impression: [address] [address] XRay Report Signed Patient: Tanner Hauser HMR#: [id number] : [id number] Age/Sex: 69 / MDate of Service: 02/02/20 Loc: ED Accession Number: [id number] Procedure: XR elbow LT 2V Ordering Provider: Guzman Tamez PROCEDURE: XR ELBOW LT 2V INDICATIONS: c/o pain TECHNIQUE: 2 views of the elbow were acquired. COMPARISON: None. FINDINGS: Bones: Evaluation is suboptimal due to limitations in patient positioning. An elbow fracture cannot be excluded, although no direct signs of a fracture involving the elbow joint are identified. Soft tissues: Evaluation for elbow joint effusion is suboptimal due to positioning on the lateral view. No suspicious soft tissue calcifications. IMPRESSION: Extremely limited evaluation due to patient positioning. If symptoms persist, repeat radiographs may be obtained. Dictated by: Juvenal Olivia M.D. on 02/02/2020 at 17:52 Approved by: Juvenal Olivia M.D. on 02/02/2020 at 17:56 XR-FA LT: Radiologist's Impression: [place] [address] XRay Report Signed Patient: Tanner Hauser R#: [id number] : [id number] Age/Sex: 69 / MDate of Service: 02/02/20 Loc: ED Accession Number: [id number] Procedure: XR forearm LT 2V Ordering Provider: Guzman Tamez PROCEDURE: XR FOREARM LEFT 2V INDICATIONS: c/o pain TECHNIQUE: 2 views of the left forearm were acquired. COMPARISON: None. FINDINGS: Bones: No acute fractures or dislocations. No suspicious bony lesions. Severe degenerative changes are seen at the 1st carpometacarpal joint. The elbow is suboptimally imaged. Soft tissues: No suspicious soft tissue calcifications or masses. Soft tissue edema is seen at the wrist and lateral aspect of the elbow. IMPRESSION: No acute osseous abnormality is seen in the distal left forearm or wrist. If symptoms persist, consider repeat radiographs versus cross-sectional imaging with CT or MRI for further evaluation. Dictated by: Juvenal Olivia M.D. on 02/02/2020 at 17:56 Approved by: Juvenal Olivia M.D. on 02/02/2020 at 17:59 [facility] Narrative Medical decision making narrative: This is a 69-year-old gentleman who has returned from [facility] today presents to ED with chief complain of left proximal humerus pain after he had slipped and fall and landed on his left shoulder a week ago. Patient has been using sling that appears to be slightly too small for his body habitus. Patient reports able to move his all fingers and intact sensation. Patient had good radial pulse distally. Patient reports limited range of motion as abduction of affected arm due to pain. Patient has dark ecchymosis to left off for arm and left posterior shoulder. Patient brought an CD with previous Xray taken in [facility]. Repeated humerus and shoulder x-ray on left arm. Left humerus x-ray shows comminuted fracture of left humeral neck and possibly humeral head without dislocation. According to radiologist report there is worsening of humeral neck fracture with greater impaction when he was compared with previous x-ray that was taken 01/20/20 (this is greater than one week ago as patient reports). Patient's pain was managed with morphine IV in ED. When patient was about to leave ED after shoulder immobilization applied on affected arm, the patient was evaluated. Appreciated left elbow pain and slight warmth and also left forearm pain. Additional x-ray tests were ordered and obtained. Elbow x-ray indicates limited evaluation due to positioning and on elbow fracture cannot be excluded. Forearm x-ray does not show acute fractures or dislocations. Patient advised to keep shoulder immobilizer as splint and to use Tylenol, ibuprofen, or [place] for severe pain. We discussed narcotic pain medication precautions. Return precautions were discussed with patient and advised to follow-up with orthopedic clinic. Patient and spouse verbalized understanding in agreement with the treatment plan. Discharge Plan Departure Patient Disposition: Home Clinical Impression: Fracture, humerus closed Qualifiers: Encounter type: initial encounter Humerus Location: surgical neck Fracture morphology: unspecified fracture morphology Fracture alignment: displaced Laterality: left Qualified Code(s): S42.212A - Unspecified displaced fracture of surgical neck of left humerus, initial encounter for closed fracture Discharge Date/Time: 02/02/20 18:39 Instructions: DI for Humeral Fracture Activity Restrictions/Additional Instructions: You have been diagnosed with [comminuted humeral neck and possibly head fracture of left arm. Please use shoulder immobilizer for splinting]. What to do: *Take your medications as directed. You can take [place] for severe pain. You can take up to 3 to 4 times a day as needed for pain. [place] is narcotic pain medication so please take precautions such as not driving, drinking alcohol, or operating heavy equipments. You can take over the counter Tylenol and ibuprofen as needed for pain as baseline. Tylenol 650 mg upto to 3 times a day and ibuprofen 400 mg up to 3 to 4 times a day as needed for pain with food to decrease GI irritation. Please to not take more than 1268-4721 mg Tylenol product in 24 hours period. [place] has been transmitted to [facility]. *Follow up with your primary care provider/orthopedist in 2-3 days, call for an appointment. Please call [facility] orthopedist clinic tomorrow to set up an appointment. Let them know you were seen in the ED and that we asked you to be seen in follow up. *Return to ED if you have any new, worsening, or concerning symptoms, such as [worsening pain, chest pain, breathing difficulty, unable to tolerate fluids, numbness/weakness distally on affected arm.]. Prescriptions: New hydrocodone-acetaminophen [[place]] 5-325 mg tablet 1 tab PO Q6H PRN (Reason: pain) Qty: 20 RF: 0 No Action cyanocobalamin (vitamin B-12) 1,000 MCG tablet extended release 1,000 mcg PO QDAY Qty: 0 RF: 0 levothyroxine 150 mcg tablet See Rx Instructions .ROUTE .COMPLEX Qty: 90 RF: 3 duloxetine 30 mg capsule,delayed release(DR/EC) 30 mg PO DAILY Qty: 90 RF: 3 chlorthalidone 25 mg tablet 25 mg PO QDAY Qty: 90 RF: 2 albuterol sulfate [Proventil HFA] 90 mcg/actuation HFA aerosol inhaler 2 puff INHALATION Q4HP PRN (Reason: shortness of breath or wheezing) Qty: 2 RF: 3 Combivent Respimat 20-100 mcg/actuation mist 1 puff INHALATION QID Qty: 8 RF: 3 [place] 160 mcg/actuation HFA aerosol inhaler 2 puff INHALATION BID Qty: 6.1 RF: 11 diphenhydramine HCl [Allergy (diphenhydramine)] 25 mg capsule 25 mg PO Q4-6H PRNRF: 0 naproxen sodium [Aleve] 220 mg capsule 660 mg PO DAILY RF: 0 metoprolol succinate 50 mg capsule,sprinkle,ER 24hr 50 mg PO DAILY Qty: 90 RF: 3 tramadol 50 mg tablet 50 mg PO TID PRN (Reason: pain) Qty: 120 RF: 0 fluticasone propionate 50 mcg/actuation spray,suspension 2 spray NASAL BEDTIME Qty: 16 RF: 0 Referrals: [facility] [Provider Group] Blas Vargas MD [Primary Care Provider] - <Nheemias Parker DO - Last Filed: 02/03/20 07:40> Cosign ED Attending Cosignature Attestation: I was immediately available in the department for consultation. This documentation has been reviewed and I agree with assessment and plan. Supervised by Nehemias Parker DO
[2020-02-02 17:09] VITALS: BP 157/82; PULSE 92; RESP 18; O2SAT 98
--- NOTE | 2020-02-02 17:24 | DI.RAD.S_ITS ---
PROCEDURE: XR ELBOW LT 2V INDICATIONS: c/o pain TECHNIQUE: 2 views of the elbow were acquired. COMPARISON: None. FINDINGS: Bones: Evaluation is suboptimal due to limitations in patient positioning. An elbow fracture cannot be excluded, although no direct signs of a fracture involving the elbow joint are identified. Soft tissues: Evaluation for elbow joint effusion is suboptimal due to positioning on the lateral view. No suspicious soft tissue calcifications. IMPRESSION: Extremely limited evaluation due to patient positioning. If symptoms persist, repeat radiographs may be obtained. Dictated by: Juvenal Olivia M.D. on 02/02/2020 at 17:52 Approved by: Juvenal Olivia M.D. on 02/02/2020 at 17:56
--- NOTE | 2020-02-02 17:24 | DI.RAD.S_ITS ---
PROCEDURE: XR FOREARM LEFT 2V INDICATIONS: c/o pain TECHNIQUE: 2 views of the left forearm were acquired. COMPARISON: None. FINDINGS: Bones: No acute fractures or dislocations. No suspicious bony lesions. Severe degenerative changes are seen at the 1st carpometacarpal joint. The elbow is suboptimally imaged. Soft tissues: No suspicious soft tissue calcifications or masses. Soft tissue edema is seen at the wrist and lateral aspect of the elbow. IMPRESSION: No acute osseous abnormality is seen in the distal left forearm or wrist. If symptoms persist, consider repeat radiographs versus cross-sectional imaging with CT or MRI for further evaluation. Dictated by: Juvenal Olivia M.D. on 02/02/2020 at 17:56 Approved by: Juvenal Olivia M.D. on 02/02/2020 at 17:59
[2020-02-02] MEDS: MORPHINE 2 MG/ML INJ IV (18:09)
== END 2020-02-02 18:39 | disposition home or self-care (01) ==
PROVIDERS: Emergency Provider Nurse Practitioner Family; PCP Internal Medicine
DX: S42.212A Unspecified displaced fracture of surgical neck of left humerus, initial encounter for closed fracture (principal); W19.XXXA Unspecified fall, initial encounter
CPT/HCPCS: 73030; 73060; 73070; 73090; 96374; 96376; 99283; 99284; J2270

== ENCOUNTER 2020-02-18 15:44 | Inpatient (IN) | payer OTHER, SELFPAY ==
[2020-02-18] VITALS (14 sets, daily range): BP systolic 107–140; BP diastolic 67–79; PULSE 101–123; RESP 13–23; TEMP 36.6–36.9; O2SAT 91–98; BMI 37.8
--- NOTE | 2020-02-18 16:07 | DI.RAD.S_ITS ---
PROCEDURE: XR CHEST 1V INDICATIONS: suspected sepsis TECHNIQUE: One view of the chest was acquired. COMPARISON: [facility], CR, XR CHEST 2V, 03/24/2019, 10:07. FINDINGS: Surgical changes and devices: Low anterior cervical fusion has been performed. Lungs and pleura: Lungs are clear. No pleural effusions or pneumothorax. Mediastinum: Moderate hiatal hernia. Mediastinal contours otherwise appear normal. Heart size is normal. Bones and chest wall: No suspicious bony lesions. Overlying soft tissues appear unremarkable. IMPRESSION: 1. No acute process. 2. Hiatal hernia. Dictated by: Simran Jett M.D. on 02/18/2020 at 16:30 Approved by: Simran Jett M.D. on 02/18/2020 at 16:30
[2020-02-18 16:42] LABS: Add Manual Diff / Slide Review NO; Basophils Absolute Auto 200 /uL (0-100); Basophils Percent Auto 1.1 % (0-2); Eosinophils Absolute Auto 0 /uL (0-450); Eosinophils Percent Auto 0.2 % (2-4); Hematocrit 30.9 % (41-53); Lymphocytes Absolute Auto 2700 /uL (1100-4500); Lymphocytes Percent Auto 12.2 % (25-40); Mean Corpuscular HGB Conc 32.3 % (30-36); Mean Corpuscular Hemoglobin 29.8 PG (26-34); Mean Corpuscular Volume 92.3 fL (80-100); Monocytes Absolute Auto 1800 /uL (0-900); Neutrophils Absolute Auto 17300 /uL (1500-7000); Neutrophils Percent Auto 78.5 % (50-75); Platelet Count 557 X10^3/uL (150-400); Red Blood Cell Count 3.35 X10^6/uL (4.5-5.9); Red Cell Distribution Width 14.9 % (11.6-14.8)
[2020-02-18 16:48] LABS: INR 1.2 (0.9-1.3); Prothrombin Time 13.3 SECONDS (10.1-12.7)
[2020-02-18 16:50] LABS: PTT Partial Thromboplastin Tim 30 SECONDS (26.4-36.2)
[2020-02-18 16:53] LABS: Alanine Aminotransferase 21 IU/L (<50); Albumin 3.5 g/dL (3.5-5.0); Albumin Globulin Ratio 1.1 (1.0-2.8); Alkaline Phosphatase 91 U/L (38-126); Aspartate Aminotransferase 27 IU/L (17-59); BUN Creatinine Ratio 65.8 (6-22); Bilirubin Total 0.3 mg/dL (0.2-1.3); Blood Urea Nitrogen 73 mg/dL (9-20); Calcium 9.4 mg/dL (8.4-10.2); Carbon Dioxide 31 mmol/L (22-32); Chloride 101 mmol/L (98-107); Estimated Glomerular Filt Rate > 60.0 mL/min (>60); Globulin 3.2 g/dL (1.7-4.1); Glucose 119 mg/dL (80-110); HEMOLYSIS < 15 (0-50); Lactate (Lactic Acid) 1.3 mmol/L (0.7-2.1); Lipase 67 U/L (23-300); Potassium 4.5 mmol/L (3.4-5.1); Sodium 135 mmol/L (137-145); Total Protein 6.7 g/dL (6.3-8.2)
--- NOTE | 2020-02-18 17:06 | ED.NAVMDI ---
HPI - Nausea/Vomiting/Diarrhea <Marcelaavtar Vergara, DO - Last Filed: 02/19/20 09:27> General Chief complaint: Nausea/Vomiting/Diarrhea Stated complaint: Diarrhea w/ Blood, SOB, sweats Time Seen by Provider: 02/18/20 17:06 Source: patient Mode of arrival: Ambulatory Limitations: no limitations History of Present Illness HPI Narrative: This is a 69-year-old male comes to the emergency department with complaint of black diarrheal stools. Patient states he has had multiple episodes since last night, he describes feeling slightly nauseated but has not had any emesis. Patient has had some mild abdominal discomfort. He has not noticed any bright red blood in his stools. Patient does not have a history of GI bleeds that he is aware of. He has felt lightheaded but has not had any syncopal events. Has had diaphoresis, he has felt short of breath but denies any chest pain or pressure. Shortness of breath occurred with ambulation. As did the lightheadedness and dizziness. Patient did break his shoulder last month. He has been taking Vicodin but stopped when he ran out. He has been taking Aleve twice daily and is continuing to take it but states he has been taking this medication for approximately a year. He does have a history of colonoscopy about a year ago which was negative according to the patient. This was done at [place]. Also had a bowel resection and hernia repair approximately 15 years ago. He does take medication for hypertension, denies any dyslipidemia or cardiac history. Denies any diabetes. He states he is not on any anticoagulants. He has also had shoulder repair last month, splenectomy secondary to trauma and bladder stone removal. He is a former smoker, denies alcohol and denies any illicit drugs. Dr. Vargas is his PCP. Related Data Home Medications Medication Instructions Recorded Confirmed cyanocobalamin (vitamin B-12) 1,000 mcg PO QDAY #0 04/04/17 02/19/20 diphenhydramine HCl 25 mg capsule 25 mg PO Q4-6H PRN 09/14/17 02/19/20 naproxen sodium 220 mg capsule 660 mg PO DAILY PRN cap 01/31/18 02/19/20 fluticasone propionate 2 spray NASAL BEDTIME PRN 02/19/20 02/19/20 ipratropium-albuterol [Combivent 1 puff INHALATION BID 02/19/20 02/19/20 Respimat] Previous Rx's Medication Instructions Recorded levothyroxine 150 mcg tablet See Rx Instructions .ROUTE 05/12/19 .COMPLEX #90 tab chlorthalidone 25 mg tablet 25 mg PO QDAY #90 tab 08/22/19 duloxetine 30 mg capsule,delayed 30 mg PO DAILY #90 cap 08/22/19 release albuterol sulfate 90 mcg/actuation 2 puff INHALATION Q4HP PRN #2 10/06/19 aerosol inhaler device metoprolol succinate 50 mg capsule 50 mg PO DAILY #90 each 12/09/19 sprinkle, ext. release 24 hr tramadol 50 mg tablet 50 mg PO TID PRN #120 tab 12/09/19 ciclesonide 160 mcg/actuation 2 puff INHALATION BID #6.1 gram 01/14/20 aerosol inhaler hydrocodone-acetaminophen [[place]] 1 tab PO Q6H PRN #20 tab 02/02/20 Allergies Allergy/AdvReac Type Severity Reaction Status Date / Time animal dander [ANIMAL DANDER] Allergy Unknown Verified 12/18/19 13:35 crab [CRAB] Allergy Unknown Verified 12/18/19 13:35 pollen extracts Allergy Unknown Verified 12/18/19 13:35 [POLLEN EXTRACTS] Review of Systems <Marcela Vergara DO - Last Filed: 02/19/20 09:27> Review of Systems ROS Unobtainable: All systems reviewed & are unremarkable except as noted in HPI and below Patient History <Marcela Vergara DO - Last Filed: 02/19/20 09:27> Medical History Acquired insufficiency of aortic valve (Chronic 10/08/15) Chronic obstructive pulmonary disease (Chronic 01/19/11) Cobalamin deficiency (Chronic) CTS (carpal tunnel syndrome) (Resolved) Eczema (Chronic) Essential hypertension (Chronic) History of malignant neoplasm of prostate (Inactive) Hypothyroidism (Chronic 08/21/14) Idiopathic peripheral neuropathy (Chronic) Leukocytosis (Chronic 01/19/11) Low back pain of over 3 months duration (Chronic 11/15/16) Obesity (Chronic 01/19/11) Prostate cancer (Resolved 2010) Thrombocytosis (Chronic 01/19/11) Weakness of right lower extremity (Chronic 11/15/16) Surgical History History of spinal fusion (Resolved 2012) History of splenectomy (Resolved 1975) Status post wrist surgery (Resolved 2011) Family History Brother Thyroid cancer Mother Breast cancer Father No problems noted. 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: [employer] travel history: recent () leisure activities: art (Photography), volunteer work and other (Traveling) Smoking Status: Former smoker Tobacco: How many years used: 15 Smokeless tobacco user: other (Cigarettes) quit status: quit date established (1989) second hand exposure: No alcohol intake: former substance use type: does not use Smoking Status: Former smoker alcohol intake frequency: 0-2 drinks per day Substance Use Type: does not use Exam <Marcela Vergara DO - Last Filed: 02/19/20 09:27> Narrative Exam Narrative: GENERAL: Alert and oriented x three, well-nourished male in mild distress. HEENT: Head normocephalic, atraumatic, EOMI, pupils reactive, face symmetric, moist mucous membranes NECK: Supple, full range of motion CARDIOVASCULAR: Tachycardic but regular rate and rhythm without murmurs, rubs or gallops. RESPIRATORY: Breath sounds equal bilaterally, no wheezes rales or rhonchi. ABDOMEN: Soft, nontender. Normoactive bowel sounds all 4 quadrants. No guarding or rebound, rigidity, no mass : No CVA tenderness EXTREMITIES: Normal range of motion, no clubbing or edema. Neurovascularly intact NEUROLOGICAL: Cranial nerves II through XII grossly intact. Moving all extremities SKIN: Warm, dry, no petechiae, no rashes or lesions. Initial Vital Signs Initial Vital Signs: Vital Signs Temperature 98.5 F 02/18/20 15:47 Pulse Rate 123 H 02/18/20 15:47 Respiratory Rate 22 02/18/20 15:47 Blood Pressure 118/75 02/18/20 15:47 Pulse Oximetry 98 02/18/20 15:47 <Gail Almendarez MD - Last Filed: 02/19/20 03:47> Initial Vital Signs Initial Vital Signs: Vital Signs Temperature 98.5 F 02/18/20 15:47 Pulse Rate 123 H 02/18/20 15:47 Respiratory Rate 22 02/18/20 15:47 Blood Pressure 118/75 02/18/20 15:47 Pulse Oximetry 98 02/18/20 15:47 Course <Marcela Vergara DO - Last Filed: 02/19/20 09:27> Orders Ordered: ED Orders 02/19/20 04:20 Complete Blood Count AUTO DIFF Routine Comprehensive Metabolic Panel Routine Acetaminophen (Tylenol) 650 mg PO Q6HR PRN PRN Reason: Fever/Mild Pain (1-3) Albuterol (Ventolin Hfa (Vent/Covid R/O)) 2 puff INH Q4H PRN PRN Reason: shortness of breath or wheezing Diphenhydramine HCl (Benadryl) 25 mg PO Q4H PRN PRN Reason: Allergic Reaction Duloxetine HCl (Cymbalta) 30 mg PO DAILY COUNT INCLUDES THE [facility] Last Admin: 02/19/20 08:53 Dose: 30 mg Documented by: CMCFARL Sodium Chloride (Normal Saline 0.9%) 1,000 mls @ 135 mls/hr IV CONT COUNT INCLUDES THE [facility] Last Admin: 02/19/20 06:30 Dose: 135 mls/hr Documented by: Admin: 02/19/20 03:16 Dose: Not Given Documented by: RAFAEL Pantoprazole Sodium 80 mg/ (Sodium Chloride) 100 mls @ 10 mls/hr IV DAILY COUNT INCLUDES THE [facility] Last Admin: 02/19/20 09:04 Dose: 10 mls/hr Documented by: CMCFARL Levothyroxine Sodium (Synthroid) 150 mcg PO 0600 COUNT INCLUDES THE [facility] Last Admin: 02/19/20 06:45 Dose: 150 mcg Documented by: RAFAEL Metoprolol Succinate (Toprol Xl) 50 mg PO DAILY COUNT INCLUDES THE [facility] Last Admin: 02/19/20 08:53 Dose: 50 mg Documented by: CMCFARL Naloxone HCl (Narcan) 0.2 mg IV Q2MIN PRN PRN Reason: Opiate Reversal Non-Formulary Medication (Ciclesonide [Alvesco]) 2 puff INH BID MANAN Last Admin: 02/19/20 08:54 Dose: 2 puff Documented by: ERI Ondansetron HCl (Zofran) 4 mg IV Q8HR PRN PRN Reason: Nausea And Vomiting Oxycodone/Acetaminophen (Percocet 5/325) 1 tab PO Q6HR PRN PRN Reason: Pain, Moderate (4-6) Last Admin: 02/19/20 06:25 Dose: 1 tab Documented by: RAFAEL Discontinued Medications Sodium Chloride (Normal Saline 0.9%) 1,000 mls @ 1,000 mls/hr IV BOLUS ONE Stop: 02/18/20 17:06 Last Infusion: 02/18/20 21:22 Dose: 0 mls/hr Documented by: JOSE ANTONIO Admin: 02/18/20 17:08 Dose: 1,000 mls/hr Documented by: JOSE ANTONIO Ceftriaxone Sodium/Dextrose (Rocephin) 1 gm in 50 mls @ 100 mls/hr IV NOW ONE Stop: 02/18/20 18:41 Last Infusion: 02/18/20 19:29 Dose: 0 mls/hr Documented by: JOSE ANTONIO Infusion: 02/18/20 18:42 Dose: 100 mls/hr Documented by: JOSE ANTONIO Infusion: 02/18/20 18:33 Dose: 0 mls/hr Documented by: JOSE ANTONIO Admin: 02/18/20 18:32 Dose: 100 mls/hr Documented by: JOSE ANTONIO Sodium Chloride (Normal Saline 0.9%) 1,000 mls @ 1,000 mls/hr IV BOLUS ONE Stop: 02/18/20 21:20 Last Admin: 02/19/20 07:10 Dose: Not Given Documented by: ERI Influenza Virus Vaccine (Flu Hd Vaccine) 0.7 ml IM .ONCE ONE Stop: 02/19/20 09:01 Last Admin: 02/19/20 08:59 Dose: 0.7 ml Documented by: ERI Ondansetron HCl (Zofran) 4 mg IV NOW ONE Stop: 02/18/20 17:27 Last Admin: 02/18/20 17:39 Dose: 4 mg Documented by: JOSE ANTONIO Oxycodone/Acetaminophen (Percocet 5/325) 1 tab PO NOW ONE Stop: 02/18/20 18:49 Last Admin: 02/18/20 19:20 Dose: 1 tab Documented by: JOSE ANTONIO Oxycodone/Acetaminophen (Percocet 5/325) 1 tab PO NOW ONE Stop: 02/18/20 20:22 Last Admin: 02/18/20 20:28 Dose: 1 tab Documented by: JOSE ANTONIO Pantoprazole Sodium (Protonix) 80 mg IV NOW ONE Stop: 02/18/20 17:27 Last Admin: 02/18/20 17:36 Dose: 80 mg Documented by: JOSE ANTONIO Vital Signs Vital signs: Vital Signs - 8 hr 02/18/20 20:00 02/18/20 20:30 02/18/20 21:00 Pulse Rate 109 H 103 H 101 H Respiratory Rate 16 17 13 Blood Pressure 119/68 109/69 114/69 Pulse Oximetry 91 91 96 <Gail Almendarez MD - Last Filed: 02/19/20 03:47> Orders Ordered: ED Orders 02/19/20 04:20 Complete Blood Count AUTO DIFF Routine Comprehensive Metabolic Panel Routine Acetaminophen (Tylenol) 650 mg PO Q6HR PRN PRN Reason: Fever/Mild Pain (1-3) Albuterol (Ventolin Hfa (Vent/Covid R/O)) 2 puff INH Q4H PRN PRN Reason: shortness of breath or wheezing Diphenhydramine HCl (Benadryl) 25 mg PO Q4H PRN PRN Reason: Allergic Reaction Duloxetine HCl (Cymbalta) 30 mg PO DAILY COUNT INCLUDES THE [facility] Last Admin: 02/19/20 08:53 Dose: 30 mg Documented by: ERI Sodium Chloride (Normal Saline 0.9%) 1,000 mls @ 135 mls/hr IV CONT COUNT INCLUDES THE [facility] Last Admin: 02/19/20 06:30 Dose: 135 mls/hr Documented by: Admin: 02/19/20 03:16 Dose: Not Given Documented by: RAFAEL Pantoprazole Sodium 80 mg/ (Sodium Chloride) 100 mls @ 10 mls/hr IV DAILY COUNT INCLUDES THE [facility] Last Admin: 02/19/20 09:04 Dose: 10 mls/hr Documented by: CMCFARL Levothyroxine Sodium (Synthroid) 150 mcg PO 0600 COUNT INCLUDES THE [facility] Last Admin: 02/19/20 06:45 Dose: 150 mcg Documented by: RAFAEL Metoprolol Succinate (Toprol Xl) 50 mg PO DAILY COUNT INCLUDES THE [facility] Last Admin: 02/19/20 08:53 Dose: 50 mg Documented by: ERI Naloxone HCl (Narcan) 0.2 mg IV Q2MIN PRN PRN Reason: Opiate Reversal Non-Formulary Medication (Ciclesonide [[place]ves[place]]) 2 puff INH BID COUNT INCLUDES THE [facility] Last Admin: 02/19/20 08:54 Dose: 2 puff Documented by: ERI Ondansetron HCl (Zofran) 4 mg IV Q8HR PRN PRN Reason: Nausea And Vomiting Oxycodone/Acetaminophen (Percocet 5/325) 1 tab PO Q6HR PRN PRN Reason: Pain, Moderate (4-6) Last Admin: 02/19/20 06:25 Dose: 1 tab Documented by: RAFAEL Discontinued Medications Sodium Chloride (Normal Saline 0.9%) 1,000 mls @ 1,000 mls/hr IV BOLUS ONE Stop: 02/18/20 17:06 Last Infusion: 02/18/20 21:22 Dose: 0 mls/hr Documented by: JOSE ANTONIO Admin: 02/18/20 17:08 Dose: 1,000 mls/hr Documented by: JOSE ANTONIO Ceftriaxone Sodium/Dextrose (Rocephin) 1 gm in 50 mls @ 100 mls/hr IV NOW ONE Stop: 02/18/20 18:41 Last Infusion: 02/18/20 19:29 Dose: 0 mls/hr Documented by: JOSE ANTONIO Infusion: 02/18/20 18:42 Dose: 100 mls/hr Documented by: JOSE ANTONIO Infusion: 02/18/20 18:33 Dose: 0 mls/hr Documented by: JOSE ANTONIO Admin: 02/18/20 18:32 Dose: 100 mls/hr Documented by: JOSE ANTONIO Sodium Chloride (Normal Saline 0.9%) 1,000 mls @ 1,000 mls/hr IV BOLUS ONE Stop: 02/18/20 21:20 Last Admin: 02/19/20 07:10 Dose: Not Given Documented by: ERI Influenza Virus Vaccine (Flu Hd Vaccine) 0.7 ml IM .ONCE ONE Stop: 02/19/20 09:01 Last Admin: 02/19/20 08:59 Dose: 0.7 ml Documented by: ERI Ondansetron HCl (Zofran) 4 mg IV NOW ONE Stop: 02/18/20 17:27 Last Admin: 02/18/20 17:39 Dose: 4 mg Documented by: JOSE ANTONIO Oxycodone/Acetaminophen (Percocet 5/325) 1 tab PO NOW ONE Stop: 02/18/20 18:49 Last Admin: 02/18/20 19:20 Dose: 1 tab Documented by: JOSE ANTONIO Oxycodone/Acetaminophen (Percocet 5/325) 1 tab PO NOW ONE Stop: 02/18/20 20:22 Last Admin: 02/18/20 20:28 Dose: 1 tab Documented by: JOSE ANTONIO Pantoprazole Sodium (Protonix) 80 mg IV NOW ONE Stop: 02/18/20 17:27 Last Admin: 02/18/20 17:36 Dose: 80 mg Documented by: JOSE ANTONIO Vital Signs Vital signs: Vital Signs - 8 hr 02/18/20 20:00 02/18/20 20:30 02/18/20 21:00 Pulse Rate 109 H 103 H 101 H Respiratory Rate 16 17 13 Blood Pressure 119/68 109/69 114/69 Pulse Oximetry 91 91 96 MDM - Nausea/Vomiting/Diarrhea <Marcela Vergara DO - Last Filed: 02/19/20 09:27> Lab Data Attestation: I reviewed the patient's lab results. Result diagrams: 02/19/20 04:20 02/19/20 04:20 Labs: Lab Results 02/18/20 02/18/20 02/18/20 Range/Units 16:25 16:25 16:25 WBC 22.0 H (4.5-11.0) X10^3/uL RBC 3.35 L (4.5-5.9) X10^6/uL Hgb 10.0 L (13.5-17.5) g/dL Hct 30.9 L (41-53) % MCV 92.3 (80-100) fL MCH 29.8 (26-34) PG MCHC 32.3 (30-36) % RDW 14.9 H (11.6-14.8) % Plt Count 557 H (150-400) X10^3/uL Neut % (Auto) 78.5 H (50-75) % Lymph % (Auto) 12.2 L (25-40) % [place] % (Auto) 8.0 (3-14) % Eos % (Auto) 0.2 L (2-4) % Baso % (Auto) 1.1 (0-2) % Neut # (Auto) 06368 H (1819-8853) /uL Lymph # (Auto) 2700 (8495-8945) /uL [place] # (Auto) 1800 H (0-900) /uL Eos # (Auto) 0 (0-450) /uL Baso # (Auto) 200 H (0-100) /uL PT 13.3 H (10.1-12.7) SECONDS INR 1.2 (0.9-1.3) APTT 30 (26.4-36.2) SECONDS Sodium (137-145) mmol/L Potassium (3.4-5.1) mmol/L Chloride (98-107) mmol/L Carbon Dioxide (22-32) mmol/L BUN (9-20) mg/dL Creatinine (0.66-1.25) mg/dL Estimated GFR (>60) mL/min BUN/Creatinine Ratio (6-22) Glucose (80-110) mg/dL Lactate (0.7-2.1) mmol/L Calcium (8.4-10.2) mg/dL Total Bilirubin (0.2-1.3) mg/dL AST (17-59) IU/L ALT (<50) IU/L Alkaline Phosphatase (38-126) U/L Total Protein (6.3-8.2) g/dL Albumin (3.5-5.0) g/dL Globulin (1.7-4.1) g/dL Albumin/Globulin Ratio (1.0-2.8) Lipase (23-300) U/L Procalcitonin 0.39 (<0.5) ng/mL Urine Color Urine Appearance Urine pH (4.5-8.0) Ur Specific [place] (1.000-1.035) Urine Protein (Negative) Urine Glucose (UA) (Negative) g/dL Urine Ketones (NEGATIVE) Urine Occult Blood (Negative) Urine Nitrate (Negative) Urine Bilirubin (NEGATIVE) Urine Urobilinogen (0.2) E.U./dL Ur Leukocyte Esterase (NEGATIVE) Urine RBC (0-5/HPF) Urine WBC (0-5/HPF) Ur Squamous Epith Cells (0-5/HPF) Urine Bacteria (None) Ur Culture Indicated? Ethyl Alcohol ( - 10) mg/dL COVID-19 PCR (Negative) Blood Type Antibody Screen 02/18/20 02/18/20 02/18/20 Range/Units 16:25 16:25 16:25 WBC (4.5-11.0) X10^3/uL RBC (4.5-5.9) X10^6/uL Hgb (13.5-17.5) g/dL Hct (41-53) % MCV (80-100) fL MCH (26-34) PG MCHC (30-36) % RDW (11.6-14.8) % Plt Count (150-400) X10^3/uL Neut % (Auto) (50-75) % Lymph % (Auto) (25-40) % [place] % (Auto) (3-14) % Eos % (Auto) (2-4) % Baso % (Auto) (0-2) % Neut # (Auto) (1348-7470) /uL Lymph # (Auto) (8321-5595) /uL [place] # (Auto) (0-900) /uL Eos # (Auto) (0-450) /uL Baso # (Auto) (0-100) /uL PT (10.1-12.7) SECONDS INR (0.9-1.3) APTT (26.4-36.2) SECONDS Sodium 135 L (137-145) mmol/L Potassium 4.5 (3.4-5.1) mmol/L Chloride 101 (98-107) mmol/L Carbon Dioxide 31 (22-32) mmol/L BUN 73 H (9-20) mg/dL Creatinine 1.11 (0.66-1.25) mg/dL Estimated GFR > 60.0 (>60) mL/min BUN/Creatinine Ratio 65.8 H (6-22) Glucose 119 H (80-110) mg/dL Lactate 1.3 (0.7-2.1) mmol/L Calcium 9.4 (8.4-10.2) mg/dL Total Bilirubin 0.3 (0.2-1.3) mg/dL AST 27 (17-59) IU/L ALT 21 (<50) IU/L Alkaline Phosphatase 91 (38-126) U/L Total Protein 6.7 (6.3-8.2) g/dL Albumin 3.5 (3.5-5.0) g/dL Globulin 3.2 (1.7-4.1) g/dL Albumin/Globulin Ratio 1.1 (1.0-2.8) Lipase 67 (23-300) U/L Procalcitonin (<0.5) ng/mL Urine Color Urine Appearance Urine pH (4.5-8.0) Ur Specific [place] (1.000-1.035) Urine Protein (Negative) Urine Glucose (UA) (Negative) g/dL Urine Ketones (NEGATIVE) Urine Occult Blood (Negative) Urine Nitrate (Negative) Urine Bilirubin (NEGATIVE) Urine Urobilinogen (0.2) E.U./dL Ur Leukocyte Esterase (NEGATIVE) Urine RBC (0-5/HPF) Urine WBC (0-5/HPF) Ur Squamous Epith Cells (0-5/HPF) Urine Bacteria (None) Ur Culture Indicated? Ethyl Alcohol < 10 ( - 10) mg/dL COVID-19 PCR (Negative) Blood Type Antibody Screen 02/18/20 02/18/20 02/18/20 Range/Units 16:25 18:01 19:40 WBC (4.5-11.0) X10^3/uL RBC (4.5-5.9) X10^6/uL Hgb (13.5-17.5) g/dL Hct (41-53) % MCV (80-100) fL MCH (26-34) PG MCHC (30-36) % RDW (11.6-14.8) % Plt Count (150-400) X10^3/uL Neut % (Auto) (50-75) % Lymph % (Auto) (25-40) % [place] % (Auto) (3-14) % Eos % (Auto) (2-4) % Baso % (Auto) (0-2) % Neut # (Auto) (6491-1739) /uL Lymph # (Auto) (0289-2554) /uL [place] # (Auto) (0-900) /uL Eos # (Auto) (0-450) /uL Baso # (Auto) (0-100) /uL PT (10.1-12.7) SECONDS INR (0.9-1.3) APTT (26.4-36.2) SECONDS Sodium (137-145) mmol/L Potassium (3.4-5.1) mmol/L Chloride (98-107) mmol/L Carbon Dioxide (22-32) mmol/L BUN (9-20) mg/dL Creatinine (0.66-1.25) mg/dL Estimated GFR (>60) mL/min BUN/Creatinine Ratio (6-22) Glucose (80-110) mg/dL Lactate (0.7-2.1) mmol/L Calcium (8.4-10.2) mg/dL Total Bilirubin (0.2-1.3) mg/dL AST (17-59) IU/L ALT (<50) IU/L Alkaline Phosphatase (38-126) U/L Total Protein (6.3-8.2) g/dL Albumin (3.5-5.0) g/dL Globulin (1.7-4.1) g/dL Albumin/Globulin Ratio (1.0-2.8) Lipase (23-300) U/L Procalcitonin (<0.5) ng/mL Urine Color Yellow Urine Appearance Clear Urine pH 5.0 (4.5-8.0) Ur Specific [place] <=1.005 (1.000-1.035) Urine Protein Negative (Negative) Urine Glucose (UA) Negative (Negative) g/dL Urine Ketones Negative (NEGATIVE) Urine Occult Blood Negative (Negative) Urine Nitrate Negative (Negative) Urine Bilirubin Negative (NEGATIVE) Urine Urobilinogen 0.2 (0.2) E.U./dL Ur Leukocyte Esterase Negative (NEGATIVE) Urine RBC None seen (0-5/HPF) Urine WBC 0-1/hpf (0-5/HPF) Ur Squamous Epith Cells 0-1 /hpf (0-5/HPF) Urine Bacteria None seen (None) Ur Culture Indicated? Cult not indicated Ethyl Alcohol ( - 10) mg/dL COVID-19 PCR Negative (Negative) Blood Type A Positive Antibody Screen Negative 02/18/20 Range/Units 20:35 WBC (4.5-11.0) X10^3/uL RBC (4.5-5.9) X10^6/uL Hgb 9.0 L (13.5-17.5) g/dL Hct 27.9 L (41-53) % MCV (80-100) fL MCH (26-34) PG MCHC (30-36) % RDW (11.6-14.8) % Plt Count (150-400) X10^3/uL Neut % (Auto) (50-75) % Lymph % (Auto) (25-40) % [place] % (Auto) (3-14) % Eos % (Auto) (2-4) % Baso % (Auto) (0-2) % Neut # (Auto) (4023-3116) /uL Lymph # (Auto) (0892-1499) /uL [place] # (Auto) (0-900) /uL Eos # (Auto) (0-450) /uL Baso # (Auto) (0-100) /uL PT (10.1-12.7) SECONDS INR (0.9-1.3) APTT (26.4-36.2) SECONDS Sodium (137-145) mmol/L Potassium (3.4-5.1) mmol/L Chloride (98-107) mmol/L Carbon Dioxide (22-32) mmol/L BUN (9-20) mg/dL Creatinine (0.66-1.25) mg/dL Estimated GFR (>60) mL/min BUN/Creatinine Ratio (6-22) Glucose (80-110) mg/dL Lactate (0.7-2.1) mmol/L Calcium (8.4-10.2) mg/dL Total Bilirubin (0.2-1.3) mg/dL AST (17-59) IU/L ALT (<50) IU/L Alkaline Phosphatase (38-126) U/L Total Protein (6.3-8.2) g/dL Albumin (3.5-5.0) g/dL Globulin (1.7-4.1) g/dL Albumin/Globulin Ratio (1.0-2.8) Lipase (23-300) U/L Procalcitonin (<0.5) ng/mL Urine Color Urine Appearance Urine pH (4.5-8.0) Ur Specific [place] (1.000-1.035) Urine Protein (Negative) Urine Glucose (UA) (Negative) g/dL Urine Ketones (NEGATIVE) Urine Occult Blood (Negative) Urine Nitrate (Negative) Urine Bilirubin (NEGATIVE) Urine Urobilinogen (0.2) E.U./dL Ur Leukocyte Esterase (NEGATIVE) Urine RBC (0-5/HPF) Urine WBC (0-5/HPF) Ur Squamous Epith Cells (0-5/HPF) Urine Bacteria (None) Ur Culture Indicated? Ethyl Alcohol ( - 10) mg/dL COVID-19 PCR (Negative) Blood Type Antibody Screen Imaging Data Chest x-ray: Radiologist's Impression: [address] [address] XRay Report Signed Patient: Tanner Hauser HMR#: [id number] : 2Acct:[id number] Age/Sex: 69 / MDate of Service: 02/18/20 Loc: ED Accession Number: [id number] Procedure: XR chest 1V Ordering Provider: Marcela Vergara D.O. PROCEDURE: XR CHEST 1V INDICATIONS: suspected sepsis TECHNIQUE: One view of the chest was acquired. COMPARISON: [facility], , XR CHEST 2V, 03/24/2019, 10:07. FINDINGS: Surgical changes and devices: Low anterior cervical fusion has been performed. Lungs and pleura: Lungs are clear. No pleural effusions or pneumothorax. Mediastinum: Moderate hiatal hernia. Mediastinal contours otherwise appear normal. Heart size is normal. Bones and chest wall: No suspicious bony lesions. Overlying soft tissues appear unremarkable. IMPRESSION: 1. No acute process. 2. Hiatal hernia. Dictated by: Simran Jett M.D. on 02/18/2020 at 16:30 Approved by: Simran Jett M.D. on 02/18/2020 at 16:30 ECG Data Attestation: I personally reviewed and interpreted this ECG as follows: Prior ECG tracings: available for review Interpretation: Sinus tachycardia, rate of 108, pr interval 136, qrs of 86, qtc 434. No ST elevation or depression.. EKG from 10/11/2019 appears similar. MDM Narrative Medical decision making narrative: Patient comes in with tachycardia, at times hypotensive. This black stools consistent with GI bleed. Patient was given Protonix 80 mg IV, typed and crossed. Patient also has an elevated white count as well as platelets which may be consistent with infection, patient's procalcitonin is negative. Unclear if he has an acute on chronic GI bleed or if this is acute bleed he does have an elevated BUN and his hemoglobin is 10 today and was 14 in October. Patient likely needs admission, unclear if we currently have beds available, awaiting callback from nurse kersey department supervisor. Patient signed out to Dr. Almendarez while awaiting CT results. <Gail Almendarez MD - Last Filed: 02/19/20 03:47> Medical Records Attestation: I reviewed the patient's medical records. Lab Data Attestation: I reviewed the patient's lab results. Labs: Lab Results 02/18/20 02/18/20 02/18/20 Range/Units 16:25 16:25 16:25 WBC 22.0 H (4.5-11.0) X10^3/uL RBC 3.35 L (4.5-5.9) X10^6/uL Hgb 10.0 L (13.5-17.5) g/dL Hct 30.9 L (41-53) % MCV 92.3 (80-100) fL MCH 29.8 (26-34) PG MCHC 32.3 (30-36) % RDW 14.9 H (11.6-14.8) % Plt Count 557 H (150-400) X10^3/uL Neut % (Auto) 78.5 H (50-75) % Lymph % (Auto) 12.2 L (25-40) % [place] % (Auto) 8.0 (3-14) % Eos % (Auto) 0.2 L (2-4) % Baso % (Auto) 1.1 (0-2) % Neut # (Auto) 15429 H (7521-0002) /uL Lymph # (Auto) 2700 (4265-1807) /uL [place] # (Auto) 1800 H (0-900) /uL Eos # (Auto) 0 (0-450) /uL Baso # (Auto) 200 H (0-100) /uL PT 13.3 H (10.1-12.7) SECONDS INR 1.2 (0.9-1.3) APTT 30 (26.4-36.2) SECONDS Sodium (137-145) mmol/L Potassium (3.4-5.1) mmol/L Chloride (98-107) mmol/L Carbon Dioxide (22-32) mmol/L BUN (9-20) mg/dL Creatinine (0.66-1.25) mg/dL Estimated GFR (>60) mL/min BUN/Creatinine Ratio (6-22) Glucose (80-110) mg/dL Lactate (0.7-2.1) mmol/L Calcium (8.4-10.2) mg/dL Total Bilirubin (0.2-1.3) mg/dL AST (17-59) IU/L ALT (<50) IU/L Alkaline Phosphatase (38-126) U/L Total Protein (6.3-8.2) g/dL Albumin (3.5-5.0) g/dL Globulin (1.7-4.1) g/dL Albumin/Globulin Ratio (1.0-2.8) Lipase (23-300) U/L Procalcitonin 0.39 (<0.5) ng/mL Urine Color Urine Appearance Urine pH (4.5-8.0) Ur Specific [place] (1.000-1.035) Urine Protein (Negative) Urine Glucose (UA) (Negative) g/dL Urine Ketones (NEGATIVE) Urine Occult Blood (Negative) Urine Nitrate (Negative) Urine Bilirubin (NEGATIVE) Urine Urobilinogen (0.2) E.U./dL Ur Leukocyte Esterase (NEGATIVE) Urine RBC (0-5/HPF) Urine WBC (0-5/HPF) Ur Squamous Epith Cells (0-5/HPF) Urine Bacteria (None) Ur Culture Indicated? Ethyl Alcohol ( - 10) mg/dL COVID-19 PCR (Negative) Blood Type Antibody Screen 02/18/20 02/18/20 02/18/20 Range/Units 16:25 16:25 16:25 WBC (4.5-11.0) X10^3/uL RBC (4.5-5.9) X10^6/uL Hgb (13.5-17.5) g/dL Hct (41-53) % MCV (80-100) fL MCH (26-34) PG MCHC (30-36) % RDW (11.6-14.8) % Plt Count (150-400) X10^3/uL Neut % (Auto) (50-75) % Lymph % (Auto) (25-40) % [place] % (Auto) (3-14) % Eos % (Auto) (2-4) % Baso % (Auto) (0-2) % Neut # (Auto) (9423-6137) /uL Lymph # (Auto) (2455-3712) /uL [place] # (Auto) (0-900) /uL Eos # (Auto) (0-450) /uL Baso # (Auto) (0-100) /uL PT (10.1-12.7) SECONDS INR (0.9-1.3) APTT (26.4-36.2) SECONDS Sodium 135 L (137-145) mmol/L Potassium 4.5 (3.4-5.1) mmol/L Chloride 101 (98-107) mmol/L Carbon Dioxide 31 (22-32) mmol/L BUN 73 H (9-20) mg/dL Creatinine 1.11 (0.66-1.25) mg/dL Estimated GFR > 60.0 (>60) mL/min BUN/Creatinine Ratio 65.8 H (6-22) Glucose 119 H (80-110) mg/dL Lactate 1.3 (0.7-2.1) mmol/L Calcium 9.4 (8.4-10.2) mg/dL Total Bilirubin 0.3 (0.2-1.3) mg/dL AST 27 (17-59) IU/L ALT 21 (<50) IU/L Alkaline Phosphatase 91 (38-126) U/L Total Protein 6.7 (6.3-8.2) g/dL Albumin 3.5 (3.5-5.0) g/dL Globulin 3.2 (1.7-4.1) g/dL Albumin/Globulin Ratio 1.1 (1.0-2.8) Lipase 67 (23-300) U/L Procalcitonin (<0.5) ng/mL Urine Color Urine Appearance Urine pH (4.5-8.0) Ur Specific [place] (1.000-1.035) Urine Protein (Negative) Urine Glucose (UA) (Negative) g/dL Urine Ketones (NEGATIVE) Urine Occult Blood (Negative) Urine Nitrate (Negative) Urine Bilirubin (NEGATIVE) Urine Urobilinogen (0.2) E.U./dL Ur Leukocyte Esterase (NEGATIVE) Urine RBC (0-5/HPF) Urine WBC (0-5/HPF) Ur Squamous Epith Cells (0-5/HPF) Urine Bacteria (None) Ur Culture Indicated? Ethyl Alcohol < 10 ( - 10) mg/dL COVID-19 PCR (Negative) Blood Type Antibody Screen 02/18/20 02/18/20 02/18/20 Range/Units 16:25 18:01 19:40 WBC (4.5-11.0) X10^3/uL RBC (4.5-5.9) X10^6/uL Hgb (13.5-17.5) g/dL Hct (41-53) % MCV (80-100) fL MCH (26-34) PG MCHC (30-36) % RDW (11.6-14.8) % Plt Count (150-400) X10^3/uL Neut % (Auto) (50-75) % Lymph % (Auto) (25-40) % [place] % (Auto) (3-14) % Eos % (Auto) (2-4) % Baso % (Auto) (0-2) % Neut # (Auto) (7818-8881) /uL Lymph # (Auto) (2743-8846) /uL [place] # (Auto) (0-900) /uL Eos # (Auto) (0-450) /uL Baso # (Auto) (0-100) /uL PT (10.1-12.7) SECONDS INR (0.9-1.3) APTT (26.4-36.2) SECONDS Sodium (137-145) mmol/L Potassium (3.4-5.1) mmol/L Chloride (98-107) mmol/L Carbon Dioxide (22-32) mmol/L BUN (9-20) mg/dL Creatinine (0.66-1.25) mg/dL Estimated GFR (>60) mL/min BUN/Creatinine Ratio (6-22) Glucose (80-110) mg/dL Lactate (0.7-2.1) mmol/L Calcium (8.4-10.2) mg/dL Total Bilirubin (0.2-1.3) mg/dL AST (17-59) IU/L ALT (<50) IU/L Alkaline Phosphatase (38-126) U/L Total Protein (6.3-8.2) g/dL Albumin (3.5-5.0) g/dL Globulin (1.7-4.1) g/dL Albumin/Globulin Ratio (1.0-2.8) Lipase (23-300) U/L Procalcitonin (<0.5) ng/mL Urine Color Yellow Urine Appearance Clear Urine pH 5.0 (4.5-8.0) Ur Specific [place] <=1.005 (1.000-1.035) Urine Protein Negative (Negative) Urine Glucose (UA) Negative (Negative) g/dL Urine Ketones Negative (NEGATIVE) Urine Occult Blood Negative (Negative) Urine Nitrate Negative (Negative) Urine Bilirubin Negative (NEGATIVE) Urine Urobilinogen 0.2 (0.2) E.U./dL Ur Leukocyte Esterase Negative (NEGATIVE) Urine RBC None seen (0-5/HPF) Urine WBC 0-1/hpf (0-5/HPF) Ur Squamous Epith Cells 0-1 /hpf (0-5/HPF) Urine Bacteria None seen (None) Ur Culture Indicated? Cult not indicated Ethyl Alcohol ( - 10) mg/dL COVID-19 PCR Negative (Negative) Blood Type A Positive Antibody Screen Negative 02/18/20 Range/Units 20:35 WBC (4.5-11.0) X10^3/uL RBC (4.5-5.9) X10^6/uL Hgb 9.0 L (13.5-17.5) g/dL Hct 27.9 L (41-53) % MCV (80-100) fL MCH (26-34) PG MCHC (30-36) % RDW (11.6-14.8) % Plt Count (150-400) X10^3/uL Neut % (Auto) (50-75) % Lymph % (Auto) (25-40) % [place] % (Auto) (3-14) % Eos % (Auto) (2-4) % Baso % (Auto) (0-2) % Neut # (Auto) (8936-4972) /uL Lymph # (Auto) (4505-9647) /uL [place] # (Auto) (0-900) /uL Eos # (Auto) (0-450) /uL Baso # (Auto) (0-100) /uL PT (10.1-12.7) SECONDS INR (0.9-1.3) APTT (26.4-36.2) SECONDS Sodium (137-145) mmol/L Potassium (3.4-5.1) mmol/L Chloride (98-107) mmol/L Carbon Dioxide (22-32) mmol/L BUN (9-20) mg/dL Creatinine (0.66-1.25) mg/dL Estimated GFR (>60) mL/min BUN/Creatinine Ratio (6-22) Glucose (80-110) mg/dL Lactate (0.7-2.1) mmol/L Calcium (8.4-10.2) mg/dL Total Bilirubin (0.2-1.3) mg/dL AST (17-59) IU/L ALT (<50) IU/L Alkaline Phosphatase (38-126) U/L Total Protein (6.3-8.2) g/dL Albumin (3.5-5.0) g/dL Globulin (1.7-4.1) g/dL Albumin/Globulin Ratio (1.0-2.8) Lipase (23-300) U/L Procalcitonin (<0.5) ng/mL Urine Color Urine Appearance Urine pH (4.5-8.0) Ur Specific [place] (1.000-1.035) Urine Protein (Negative) Urine Glucose (UA) (Negative) g/dL Urine Ketones (NEGATIVE) Urine Occult Blood (Negative) Urine Nitrate (Negative) Urine Bilirubin (NEGATIVE) Urine Urobilinogen (0.2) E.U./dL Ur Leukocyte Esterase (NEGATIVE) Urine RBC (0-5/HPF) Urine WBC (0-5/HPF) Ur Squamous Epith Cells (0-5/HPF) Urine Bacteria (None) Ur Culture Indicated? Ethyl Alcohol ( - 10) mg/dL COVID-19 PCR (Negative) Blood Type Antibody Screen Imaging Data CT scan - abdomen/pelvis: Radiologist's Impression: FINDINGS: Image quality: Excellent. ABDOMEN: Lung bases: Pleural thickening or scar is noted at the right lung base. The lung bases are otherwise clear. Heart is normal size. Solid organs: Liver is normal in size and enhancement. Sludge is layered in the gallbladder fundus. No gallbladder wall thickening or pericholecystic fluid. Biliary system is non dilated. Pancreas enhances normally. The distal aspect of the spleen appears slightly increased in density and smoothly marginated raising the suspicion for splenosis. Spleen is not visualized and may be surgically absent. No adrenal nodules. Kidneys demonstrate normal size and enhancement, without hydronephrosis. Peritoneum and bowel: Bowel loops demonstrate normal wall thickness and caliber. There is a small debris-filled 4th portion duodenal diverticulum. The appendix is thin walled. There are scattered sigmoid diverticula. No evidence for diverticulitis. No free fluid or air. Nodes and vessels: No retroperitoneal or mesenteric adenopathy by size criteria. Aorta and inferior vena cava are normal in size. There are scattered atheromatous calcifications throughout the aorta and iliac arteries bilaterally. Miscellaneous: There is diastasis of the rectus abdominus musculature. Herniorrhaphy mesh is likely present. No randall hernia noted. PELVIS: Genitourinary: Bladder wall thickness is normal. Brachytherapy beads are noted at the prostate. Miscellaneous: No inguinal hernias or adenopathy. Bones: No suspicious bony lesions. A probable bone island is noted at the left sacroiliac joint. No vertebral body compression fractures. IMPRESSION: 1. Gallbladder sludge noted. No findings to suggest choledocholithiasis or acute cholecystitis. 2. No acute intra-abdominal findings. Normal appendix. 3. Diverticulosis. No acute diverticulitis. A diverticular bleed may be the etiology of the patient's melena; however direct visualization of the colon is recommended to exclude neoplasm. 4. Questionable splenosis of the pancreatic tail. Further characterization was warranted, a tagged red cell scan could be used. Dictated by: Abby Bob M.D. on 02/18/2020 at 18:10 ECG Data Attestation: I personally reviewed and interpreted this ECG as follows: Interpretation: Sinus tachycardia at 1:08 a.m. Normal intervals, normal axis No acute ischemic changes MDM Narrative Medical decision making narrative: 69-year-old gentleman presents with black stool guaiac positive dropping hematocrit after increasing Naprosyn dose to deal with pain from a broken left shoulder. No evidence of alcohol abuse or esophageal varices complications. He has been given IV Protonix fluid boluses his hematocrit at does continue to drift down but he is otherwise hemodynamically stable and will hold off on transfusion for the time being. Care is reviewed with Dr. Lacy who is on-call for Dr. Vargas, the patient's primary care physician. Patient will be admitted for further evaluation and treatment for his presumed NSAID induced upper GI bleed. Discharge Plan Departure Patient Disposition: Admitted As Inpatient Clinical Impression: GI bleed Qualifiers: GI bleed type/associated pathology: unspecified gastrointestinal hemorrhage type Qualified Code(s): K92.2 - Gastrointestinal hemorrhage, unspecified Discharge Date/Time: 02/18/20 21:25 Referrals: Blas Vargas MD [Primary Care Provider] - Admit Date/Time: 02/18/20 21:13 Admit Provider: Atif Lacy
[2020-02-18] MEDS: SODIUM CHLORIDE 0.9% 1,000 ML 1000 ML IV (17:08)
[2020-02-18 17:13] LABS: Procalcitonin 0.39 ng/mL (<0.5)
--- NOTE | 2020-02-18 17:26 | DI.CT.S_ITS ---
PROCEDURE: CT ABDOMEN PELVIS W CON INDICATIONS: diarrhea, black stools, nausea TECHNIQUE: After the administration of intravenous contrast, 5 mm thick sections acquired from the diaphragm to the symphysis. 5 mm coronal and sagittal reformats were acquired. For radiation dose reduction, the following was used: automated exposure control, adjustment of mA and/or kV according to patient size. COMPARISON: [facility], CT, CT CHEST ABD PEL W CON, 10/11/2019, 15:19. FINDINGS: Image quality: Excellent. ABDOMEN: Lung bases: Pleural thickening or scar is noted at the right lung base. The lung bases are otherwise clear. Heart is normal size. Solid organs: Liver is normal in size and enhancement. Sludge is layered in the gallbladder fundus. No gallbladder wall thickening or pericholecystic fluid. Biliary system is non dilated. Pancreas enhances normally. The distal aspect of the spleen appears slightly increased in density and smoothly marginated raising the suspicion for splenosis. Spleen is not visualized and may be surgically absent. No adrenal nodules. Kidneys demonstrate normal size and enhancement, without hydronephrosis. Peritoneum and bowel: Bowel loops demonstrate normal wall thickness and caliber. There is a small debris-filled 4th portion duodenal diverticulum. The appendix is thin walled. There are scattered sigmoid diverticula. No evidence for diverticulitis. No free fluid or air. Nodes and vessels: No retroperitoneal or mesenteric adenopathy by size criteria. Aorta and inferior vena cava are normal in size. There are scattered atheromatous calcifications throughout the aorta and iliac arteries bilaterally. Miscellaneous: There is diastasis of the rectus abdominus musculature. Herniorrhaphy mesh is likely present. No randall hernia noted. PELVIS: Genitourinary: Bladder wall thickness is normal. Brachytherapy beads are noted at the prostate. Miscellaneous: No inguinal hernias or adenopathy. Bones: No suspicious bony lesions. A probable bone island is noted at the left sacroiliac joint. No vertebral body compression fractures. IMPRESSION: 1. Gallbladder sludge noted. No findings to suggest choledocholithiasis or acute cholecystitis. 2. No acute intra-abdominal findings. Normal appendix. 3. Diverticulosis. No acute diverticulitis. A diverticular bleed may be the etiology of the patient's melena; however direct visualization of the colon is recommended to exclude neoplasm. 4. Questionable splenosis of the pancreatic tail. Further characterization was warranted, a tagged red cell scan could be used. Dictated by: Abby Bob M.D. on 02/18/2020 at 18:10 Approved by: Abby Bob M.D. on 02/18/2020 at 18:17
[2020-02-18] MEDS: PANTOPRAZOLE 40 MG VIAL 80 MG IV (17:36)
[2020-02-18] MEDS: ONDANSETRON 4 MG/2 ML INJ IV (17:39)
[2020-02-18 17:45] LABS: Ethanol (ETOH) < 10 mg/dL
[2020-02-18] MEDS: CEFTRIAXONE 1 GM/50 ML FROZ.PIGGY IV (18:32)
[2020-02-18 18:33] LABS: COVID19 -Nasal RAPID Negative (Negative)
[2020-02-18] MEDS: OXYCODONE/ACETAMINOPHEN 5/325 TABLET 1 TAB PO ×2 (19:20→20:28)
[2020-02-18 19:46] LABS: Bacteria Urine None Seen; RBC Urine None Seen (0-5/HPF)
[2020-02-18 19:49] LABS: Appearance Urine UA CLEAR; Bilirubin Urine UA NEGATIVE (NEGATIVE); Color Urine UA YELLOW; Glucose Urine UA NEGATIVE (Negative); Ketones Urine UA NEGATIVE (NEGATIVE); Leukocyte Esterase Urine UA NEGATIVE (NEGATIVE); Nitrite Urine UA NEGATIVE (Negative); Occult Blood Urine UA NEGATIVE (Negative); Protein Urine UA NEGATIVE (Negative); Specific Gravity Urine UA <=1.005 (1.000-1.035); Urobilinogen Urine UA 0.2 E.U./dL (0.2)
[2020-02-18 20:04] LABS: Culture Indicated Urine Cult Not Indicated; Squamous Epithelial Cell Urine 0-1 /HPF (0-5/HPF); WBC Urine 0-1/HPF (0-5/HPF)
[2020-02-18 20:39] LABS: Hematocrit 27.9 % (41-53)
[2020-02-18 23:17] LABS: Hematocrit 26.2 % (41-53); Hemoglobin 8.7 g/dL (13.5-17.5)
[2020-02-19] VITALS (16 sets, daily range): BP systolic 110–130; BP diastolic 62–83; PULSE 83–99; RESP 12–19; TEMP 36.1–37.1; O2SAT 90–98
--- NOTE | 2020-02-19 | PATH_ITS ---
[facility] Accession Number: [id number] . 01 Material submitted: . PART A: duodenum - DUODENUM BIOPSY PART B: gastrointestinal site - STOMACH ULCER BIOPSY GASTRIC ANTRUM PART C: gastrointestinal site - ULCER GASTRIC CARDIA PART D: esophagus - DISTAL ESOPHAGUS . 01 Clinical history: . DIARRHEA W/BLOOD, SOB, SWEATS . 02 Diagnosis: A. Duodenum, Biopsy: Duodenal mucosa with foveolar metaplasia, consistent with peptic duodenitis. Negative for active inflammation, features of sprue, dysplasia or malignancy. . B. Gastric Antrum, Biopsy: Gastric antral mucosa with mild chronic inflammation and reactive foveolar hyperplasia. Negative for Helicobacter organisms by immunohistochemistry. Negative for intestinal metaplasia. Negative for dysplasia or malignancy. . C. Gastric Cardia, Biopsy: Gastric body mucosa with mild chronic, focal active inflammation. Negative for Helicobacter organisms by immuohistochemistry. Negative for intestinal metaplasia. Negative for dysplasia or malignancy. . D. Distal Esophagus, Biopsy: Proximal gastric-type mucosa with mild chronic inflammation. Negative for specialized intestinal metaplasia on alcian blue stain. Negative for dysplasia or malignancy. [facility] 02/25/2020 1530 Local . 02 Electronically signed: . Taj Schwarz MD, PhD, Pathologist NPI- [id number] . 01 Gross description: . Part A: DUODENUM BIOPSY: Received in formalin are 3 fragment(s) of berry, soft tissue measuring 0.2 x 0.2 x 0.2 cm to 0.3 x 0.3 x 0.2 cm submitted entirely in 1 cassette(s) Part B: STOMACH ULCER BIOPSY GASTRIC ANTRUM: Received in formalin is 1 fragment(s) of berry, soft tissue measuring 0.3 x 0.2 x 0.2 cm submitted entirely in 1 cassette(s) Part C: ULCER GASTRIC CARDIA: Received in formalin are 2 fragment(s) of berry, soft tissue measuring 0.1 x 0.1 x 0.1 cm to 0.2 x 0.2 x 0.2 cm submitted entirely in 1 cassette(s) Part D: DISTAL ESOPHAGUS: Received in formalin are 2 fragment(s) of berry, soft tissue measuring 0.1 x 0.1 x 0.1 cm to 0.2 x 0.2 x 0.2 cm submitted entirely in 1 cassette(s) /MARY 02/20/2020 0138 Local . 02 Microscopic: . B. An immunohistochemical stain was performed to evaluate for Helicobacter organisms and is negative. The control stain showed appropriate reactivity. . C. An immunohistochemical stain was performed to evaluate for Helicobacter organisms and is negative. The control stain showed appropriate reactivity. . . * This test was developed and its performance characteristics determined by [facility]. It has not been cleared or approved by the U.[place]. Food and Drug Administration. The FDA has determined that such clearance or approval is not necessary. This test is used for clinical purposes. It should not be regarded as investigational or for research. . 02 Pathologist provided ICD-10: K29.80, K29.70, K20.90 . 02 CPT . 579999, 950526, 121653, 145386, [id number], [id number] Performed at: 01 [facility] [address] [address], [place], [place] [id number] MD Shad Multani MD Phone: [phone] Performed at: 02 [facility] [address] [place], [place] [id number] MD Shana Dawn MD Phone: [phone]
[2020-02-19 04:33] LABS: Add Manual Diff / Slide Review NO; Basophils Absolute Auto 300 /uL (0-100); Basophils Percent Auto 1.5 % (0-2); Eosinophils Absolute Auto 100 /uL (0-450); Eosinophils Percent Auto 0.7 % (2-4); Hematocrit 25.5 % (41-53); Hemoglobin 8.3 g/dL (13.5-17.5); Lymphocytes Absolute Auto 3200 /uL (1100-4500); Lymphocytes Percent Auto 16.4 % (25-40); Mean Corpuscular HGB Conc 32.5 % (30-36); Mean Corpuscular Hemoglobin 30.1 PG (26-34); Mean Corpuscular Volume 92.6 fL (80-100); Monocytes Absolute Auto 1700 /uL (0-900); Monocytes Percent Auto 8.8 % (3-14); Neutrophils Absolute Auto 14200 /uL (1500-7000); Neutrophils Percent Auto 72.6 % (50-75); Platelet Count 489 X10^3/uL (150-400); Red Blood Cell Count 2.75 X10^6/uL (4.5-5.9); Red Cell Distribution Width 14.8 % (11.6-14.8); White Blood Cell Count 19.6 X10^3/uL (4.5-11.0)
[2020-02-19 04:45] LABS: Alanine Aminotransferase 20 IU/L (<50); Albumin 3.1 g/dL (3.5-5.0); Albumin Globulin Ratio 1.1 (1.0-2.8); Alkaline Phosphatase 80 U/L (38-126); Aspartate Aminotransferase 23 IU/L (17-59); BUN Creatinine Ratio 56.8 (6-22); Bilirubin Total 0.3 mg/dL (0.2-1.3); Blood Urea Nitrogen 71 mg/dL (9-20); Calcium 8.6 mg/dL (8.4-10.2); Carbon Dioxide 31 mmol/L (22-32); Chloride 103 mmol/L (98-107); Estimated Glomerular Filt Rate 57.4 mL/min (>60); Globulin 2.9 g/dL (1.7-4.1); Glucose 109 mg/dL (80-110); HEMOLYSIS < 15 (0-50); Potassium 4.5 mmol/L (3.4-5.1); Sodium 136 mmol/L (137-145)
[2020-02-19] MEDS: OXYCODONE/ACETAMINOPHEN 5/325 TABLET 1 TAB PO ×3 (06:25→20:52)
[2020-02-19] MEDS: SODIUM CHLORIDE 0.9% 1,000 ML 135 ML IV ×3 (06:30→23:43)
[2020-02-19] MEDS: LEVOTHYROXINE 75 MCG TABLET 150 MCG PO (06:45)
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
--- NOTE | 2020-02-19 07:50 | P.HP_ITS ---
History of Present Illness History of Present Illness Date Patient Seen: 02/19/20 Time Patient Seen: 07:50 Chief complaint: Diarrhea w/ Blood, SOB, sweats Narrative: 69-year-old male presented via [facility] Emergency Department with dark- colored stool, that is somewhat loose. He has had some mild abdominal discomfort. Somewhat nauseated but no emesis. No bright red blood. Recently fell fractured his humerus and has been using a larger than usual doses of Aleve to help manage his pain. His shoulder is not felt to require surgical intervention by Orthopedic surgery. Has had a colonoscopy the last year or 2 (records are not available however). Patient History Medical History Acquired insufficiency of aortic valve (Chronic 10/08/15) Chronic obstructive pulmonary disease (Chronic 01/19/11) Cobalamin deficiency (Chronic) CTS (carpal tunnel syndrome) (Resolved) Eczema (Chronic) Essential hypertension (Chronic) History of malignant neoplasm of prostate (Inactive) Hypothyroidism (Chronic 08/21/14) Idiopathic peripheral neuropathy (Chronic) Leukocytosis (Chronic 01/19/11) Low back pain of over 3 months duration (Chronic 11/15/16) Obesity (Chronic 01/19/11) Prostate cancer (Resolved 2010) Thrombocytosis (Chronic 01/19/11) Weakness of right lower extremity (Chronic 11/15/16) Surgical History History of spinal fusion (Resolved 2012) History of splenectomy (Resolved 1975) Status post wrist surgery (Resolved 2011) Family & Social History Family History Brother Thyroid cancer Mother Breast cancer Father No problems noted. Social History: household members none Prior Living Arrangements House lives independently Yes caregiver/support person No Safety & Behavioral: Feels Safe in Current Yes Environment Been Physically Hurt or No Threatened By a Person Suicidal Ideation Description None Suicide Plan Description No Plan Tobacco & Substance use: Smoking Status Former smoker alcohol intake former alcohol intake frequency 0-2 drinks per day Substance Use Type does not use Meds Home Medications and Allergies Home Medications Medication Instructions Recorded Confirmed Type cyanocobalamin (vitamin B-12) 1,000 mcg PO QDAY #0 04/04/17 02/19/20 History diphenhydramine HCl 25 mg capsule 25 mg PO Q4-6H PRN 09/14/17 02/19/20 History naproxen sodium 220 mg capsule 660 mg PO DAILY cap 01/31/18 12/09/19 History fluticasone propionate 50 2 spray NASAL BEDTIME #16 gram 03/24/19 12/09/19 Rx mcg/actuation nasal spray,suspension levothyroxine 150 mcg tablet See Rx Instructions .ROUTE 05/12/19 12/09/19 Rx .COMPLEX #90 tab chlorthalidone 25 mg tablet 25 mg PO QDAY #90 tab 08/22/19 02/19/20 Rx duloxetine 30 mg capsule,delayed 30 mg PO DAILY #90 cap 08/22/19 02/19/20 Rx release albuterol sulfate 90 mcg/actuation 2 puff INHALATION Q4HP PRN #2 10/06/19 02/19/20 Rx aerosol inhaler device metoprolol succinate 50 mg capsule 50 mg PO DAILY #90 each 12/09/19 12/09/19 Rx sprinkle, ext. release 24 hr tramadol 50 mg tablet 50 mg PO TID PRN #120 tab 12/09/19 12/09/19 Rx ipratropium 20 mcg-albuterol 100 1 puff INHALATION QID #8 gram 12/17/19 Rx mcg/actuation mist for inhalation ciclesonide 160 mcg/actuation 2 puff INHALATION BID #6.1 gram 01/14/20 02/19/20 Rx aerosol inhaler hydrocodone-acetaminophen [[place]] 1 tab PO Q6H PRN #20 tab 02/02/20 02/19/20 Rx Allergies Allergy/AdvReac Type Severity Reaction Status Date / Time animal dander [ANIMAL DANDER] Allergy Unknown Verified 12/18/19 13:35 crab [CRAB] Allergy Unknown Verified 12/18/19 13:35 pollen extracts Allergy Unknown Verified 12/18/19 13:35 [POLLEN EXTRACTS] Review of Systems Constitutional Constitutional: Denies excessive sweating, Denies fever(s), Denies headache(s), Reports weakness, Denies weight gain and Denies weight loss Eyes Eyes: Denies change in vision, Denies itchy eyes, Denies loss of vision and Denies other visual disturbances ENT Ears, Nose, Mouth, and Throat: No change in voice, No dysphagia, No dizziness, No otalgia, No headache(s), No hoarseness, No lip swelling, No neck pain, No sore throat, No throat swelling and No tongue swelling Cardiovascular Cardiovascular: Denies chest pain, Denies syncope, Denies rapid heart rate, Denies irregular heart rhythm, Denies palpitations, Reports dyspnea, Reports dyspnea on exertion and Denies slow heart rate Respiratory Respiratory: Denies chest congestion, Denies cough, Denies hemoptysis, Reports dyspnea, Reports dyspnea on exertion, Denies stridor and Denies wheezing Gastrointestinal Gastrointestinal: Denies abdominal pain, Reports melena, Denies bloating, Reports change in stool character, Denies dysphagia, Reports loose stools, Reports nausea, Denies vomiting and Denies hematemesis Genitourinary Genitourinary: Denies hematuria, Denies difficulty urinating and Denies urinary frequency Musculoskeletal Musculoskeletal: Denies abnormal gait, Denies myalgias, Denies arthralgias, Denies limited range of motion and Denies neck pain Integumentary/Breasts Skin/Breast: Denies bleeding lesions, Denies change in pigmentation, Denies changing lesions, Denies new lesions, Denies rash, Denies skin swelling, Denies sores and Denies jaundice Neurologic Neurologic: Denies abnormal speech, Denies abnormal gait, Denies behavioral changes, Denies confusion, Denies dizziness, Denies syncope, Denies headache(s), Denies loss of vision, Denies memory loss, Denies seizure-like activity, Denies paresthesias and Reports weakness Psychiatric Psychiatric: Denies behavioral changes, Denies change in appetite, Denies confusion, Denies difficulty concentrating, Denies auditory hallucinations, Denies memory loss, Denies mood swings and Denies suicidal ideation Endocrine Endocrine: Denies excessive sweating, Denies flushing, Denies polyuria and Denies palpitations Hematologic/Lymphatic Hematologic/Lymphatic: Denies easy bleeding, Denies easy bruising and Denies lymphadenopathy Allergic/Immunologic Allergic/Immunologic: Denies urticaria, Denies itchy eyes, Denies lip swelling, Denies throat swelling, Denies tongue swelling and Denies wheezing Exam Vital Signs (past 8 hours): - 02/19/20 00:00 02/19/20 03:58 Temperature 98.3 F 97.4 F L Pulse Rate 97 H 99 H Respiratory Rate 16 18 Blood Pressure 115/75 126/83 Pulse Oximetry 92 92 Oxygen Delivery Method Room Air Oxygen Flow Rate 0 Narrative Exam Narrative: Middle-aged male who appears comfortable lying in hospital bed HEENT-normocephalic atraumatic PERRLA EOMs intact Neck-no lymphadenopathy no bruits Lungs-good breath sounds occasional end-expiratory wheezes scattered no crackles Heart-regular rate and rhythm no murmur Abdomen-soft nontender nondistended positive bowel tones no hepatosplenomegaly Extremities-pain with movement of left arm otherwise trace edema at the ankles bilaterally no cyanosis or clubbing Neuro-alert oriented x3 no cranial nerve defects no focal findings did not ask patient to get out of bed, so gait not evaluated Objective Labs Result Diagrams: 02/19/20 04:20 02/19/20 04:20 Labs: Laboratory Results - last 24 hr 02/18/20 02/18/20 02/18/20 16:25 16:25 16:25 WBC 22.0 H RBC 3.35 L Hgb 10.0 L Hct 30.9 L MCV 92.3 MCH 29.8 MCHC 32.3 RDW 14.9 H Plt Count 557 H Neut % (Auto) 78.5 H Lymph % (Auto) 12.[address] [place] % (Auto) 8.0 Eos % (Auto) 0.2 L Baso % (Auto) 1.1 Neut # (Auto) 59521 H Lymph # (Auto) 2700 [place] # (Auto) 1800 H Eos # (Auto) 0 Baso # (Auto) 200 H PT 13.3 H INR 1.2 APTT 30 Sodium Potassium Chloride Carbon Dioxide BUN Creatinine Estimated GFR BUN/Creatinine Ratio Glucose Lactate Calcium Total Bilirubin AST ALT Alkaline Phosphatase Total Protein Albumin Globulin Albumin/Globulin Ratio Lipase Procalcitonin 0.39 Urine Color Urine Appearance Urine pH Ur Specific [place] Urine Protein Urine Glucose (UA) Urine Ketones Urine Occult Blood Urine Nitrate Urine Bilirubin Urine Urobilinogen Ur Leukocyte Esterase Urine RBC Urine WBC Ur Squamous Epith Cells Urine Bacteria Ur Culture Indicated? Ethyl Alcohol COVID-19 PCR Blood Type Antibody Screen 02/18/20 02/18/20 02/18/20 16:25 16:25 16:25 WBC RBC Hgb Hct MCV MCH MCHC RDW Plt Count Neut % (Auto) Lymph % (Auto) [place] % (Auto) Eos % (Auto) Baso % (Auto) Neut # (Auto) Lymph # (Auto) [place] # (Auto) Eos # (Auto) Baso # (Auto) PT INR APTT Sodium 135 L Potassium 4.5 Chloride 101 Carbon Dioxide 31 BUN 73 H Creatinine 1.11 Estimated GFR > 60.0 BUN/Creatinine Ratio 65.8 H Glucose 119 H Lactate 1.3 Calcium 9.4 Total Bilirubin 0.3 AST 27 ALT 21 Alkaline Phosphatase 91 Total Protein 6.7 Albumin 3.5 Globulin 3.2 Albumin/Globulin Ratio 1.1 Lipase 67 Procalcitonin Urine Color Urine Appearance Urine pH Ur Specific [place] Urine Protein Urine Glucose (UA) Urine Ketones Urine Occult Blood Urine Nitrate Urine Bilirubin Urine Urobilinogen Ur Leukocyte Esterase Urine RBC Urine WBC Ur Squamous Epith Cells Urine Bacteria Ur Culture Indicated? Ethyl Alcohol < 10 COVID-19 PCR Blood Type Antibody Screen 02/18/20 02/18/20 02/18/20 16:25 18:01 19:40 WBC RBC Hgb Hct MCV MCH MCHC RDW Plt Count Neut % (Auto) Lymph % (Auto) [place] % (Auto) Eos % (Auto) Baso % (Auto) Neut # (Auto) Lymph # (Auto) [place] # (Auto) Eos # (Auto) Baso # (Auto) PT INR APTT Sodium Potassium Chloride Carbon Dioxide BUN Creatinine Estimated GFR BUN/Creatinine Ratio Glucose Lactate Calcium Total Bilirubin AST ALT Alkaline Phosphatase Total Protein Albumin Globulin Albumin/Globulin Ratio Lipase Procalcitonin Urine Color Yellow Urine Appearance Clear Urine pH 5.0 Ur Specific [place] <=1.005 Urine Protein Negative Urine Glucose (UA) Negative Urine Ketones Negative Urine Occult Blood Negative Urine Nitrate Negative Urine Bilirubin Negative Urine Urobilinogen 0.2 Ur Leukocyte Esterase Negative Urine RBC None seen Urine WBC 0-1/hpf Ur Squamous Epith Cells 0-1 /hpf Urine Bacteria None seen Ur Culture Indicated? Cult not indicated Ethyl Alcohol COVID-19 PCR Negative Blood Type A Positive Antibody Screen Negative 02/18/20 02/18/20 02/19/20 20:35 23:10 04:20 WBC 19.6 H RBC 2.75 L Hgb 9.0 L 8.7 L 8.3 L Hct 27.9 L 26.2 L 25.5 L MCV 92.6 MCH 30.1 MCHC 32.5 RDW 14.8 Plt Count 489 H Neut % (Auto) 72.6 Lymph % (Auto) 16.[address] [place] % (Auto) 8.8 Eos % (Auto) 0.7 L Baso % (Auto) 1.5 Neut # (Auto) 89863 H Lymph # (Auto) 3[address] [place] # (Auto) 1700 H Eos # (Auto) 100 Baso # (Auto) 300 H PT INR APTT Sodium Potassium Chloride Carbon Dioxide BUN Creatinine Estimated GFR BUN/Creatinine Ratio Glucose Lactate Calcium Total Bilirubin AST ALT Alkaline Phosphatase Total Protein Albumin Globulin Albumin/Globulin Ratio Lipase Procalcitonin Urine Color Urine Appearance Urine pH Ur Specific [place] Urine Protein Urine Glucose (UA) Urine Ketones Urine Occult Blood Urine Nitrate Urine Bilirubin Urine Urobilinogen Ur Leukocyte Esterase Urine RBC Urine WBC Ur Squamous Epith Cells Urine Bacteria Ur Culture Indicated? Ethyl Alcohol COVID-19 PCR Blood Type Antibody Screen 02/19/20 04:20 WBC RBC Hgb Hct MCV MCH MCHC RDW Plt Count Neut % (Auto) Lymph % (Auto) [place] % (Auto) Eos % (Auto) Baso % (Auto) Neut # (Auto) Lymph # (Auto) [place] # (Auto) Eos # (Auto) Baso # (Auto) PT INR APTT Sodium 136 L Potassium 4.5 Chloride 103 Carbon Dioxide 31 BUN 71 H Creatinine 1.25 Estimated GFR 57.4 L BUN/Creatinine Ratio 56.8 H Glucose 109 Lactate Calcium 8.6 Total Bilirubin 0.3 AST 23 ALT 20 Alkaline Phosphatase 80 Total Protein 6.0 L Albumin 3.1 L Globulin 2.9 Albumin/Globulin Ratio 1.1 Lipase Procalcitonin Urine Color Urine Appearance Urine pH Ur Specific [place] Urine Protein Urine Glucose (UA) Urine Ketones Urine Occult Blood Urine Nitrate Urine Bilirubin Urine Urobilinogen Ur Leukocyte Esterase Urine RBC Urine WBC Ur Squamous Epith Cells Urine Bacteria Ur Culture Indicated? Ethyl Alcohol COVID-19 PCR Blood Type Antibody Screen Assessment & Plan Assessment & Plan narrative: 1. Probable upper GI bleed likely secondary to NS AID use. Patient to have EGD later this morning. Continue with proton pump inhibitor and serial hemoglobin/hematocrit. If hemoglobin less than 8 strongly consider transfusion. Patient with known aortic valve disease but no known coronary artery disease, so do not anticipate transfusion at current levels. 2. Shoulder pain-would employ more narcotics and no NSAIDs for now. Patient has had oxycodone prescribed by the ER which has been continued in the hospital. 3. Hypothyroid-continue usual medications 4. Patient's other medical problems are stable. Continue usual medications when not NPO. Patient will need to find alternative for treatment of his lower extremity neuropathic symptoms as he has been using Aleve for this as well. 5. VTE prophylaxis-given bleeding not a candidate for any anticoagulation of cou rse. SCDs will be employed 6. Code status-patient should be a full code in the case of a sudden cardiac or respiratory arrest which is certainly not anticipated at this point. Patient deserves inpatient hospitalization given the serious nature of his presentation with evidence of GI bleeding and declining hemoglobin and hematocrit. Patient will likely be in the hospital greater than 48 hours including 2 separate midnights Quality VTE Deep Vein Thrombosis/Pulmonary Embolism Present on Admission: No
[2020-02-19] MEDS: DULOXETINE 30 MG CAPSULE PO (08:53)
[2020-02-19] MEDS: METOPROLOL ER 50 MG TABLET PO (08:53)
[2020-02-19] MEDS: CICLESONIDE 2 EACH INH ×2 (08:54→20:40)
[2020-02-19] MEDS: INFLUENZA HD VACCINE 0.7 ML SYRINGE IM (08:59)
[2020-02-19] MEDS: PANTOPRAZOLE 80 MG in SODIUM CHLORIDE 0.9% 100 ML 10 ML IV (09:04)
--- NOTE | 2020-02-19 12:04 | CM.IDA ---
Addendum entered by EDITH Trujilol 02/19/20 12:11: Patient goes by Carlton Olea Note: Initial DCP Assessment Note Patient is a 69 yo male, resident of [place]. Patient presents w/ ongoing diarrhea w/blood, SOB; scheduled for an EGD this afternoon. PCP: Blas Vargas Payer: [employer] Reviewed chart, met w/patient this morning to introduce role. Patient lives in [place], lives alone, does have a gf/partner, Josi, who can assist upon DC home. Patient does not have any children. 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 Patient is currently recovering from a shoulder injury, sustained during a fall while traveling in [facility] w/in the last month. Patient states I can't believe I did that and recalls his experience traveling w/a fractured shoulder from [facility] back home to [place], where sister drove him immediately to ED for pain management, then DC home w/friends and family to assist. Patient eager to understand medical POC, appreciative of the visit, expects no needs from DCP team, will follow closely EDITH Trujillo Discharge Planning/Care Management CM Discharge Assessment Start: 02/19/20 11:54 Freq: Status: Active Protocol: Document 02/19/20 11:54 DENIZ (Rec: 02/19/20 12:04 DENIZ [id number]) Discharge Planning Assessment Assigned Carroting Machine Operator EDITH Li DPOA/Assigned Designee Name Blas Hauser, brother Josi Buckley, partner Contact Information Blas: [phone] ([place]) Josi : [phone] Advance Directives? Yes History Provided By Patient Prior Living Arrangements House Household Members none Type of transporation used prior to Drives own vehicle admit Independent with ADL's Yes Is patient alert and oriented? Yes Barriers to Discharge No Comment At this time Transportation Arrangement Partner Referrals Initiated None needed
--- NOTE | 2020-02-19 13:44 | P.OP.ENDO_ITS ---
Operative Date/Time/Diagnoses Date of procedure: 02/19/20 Time of procedure: 13:44 Pre-op diagnosis: Upper GI bleed Post-op diagnosis: other (Large acute ulcers in the duodenum, gastric antrum, and gastric cardia, no active bleeding or exposed vessels) Procedure & Clinicians Study performed: Esophagogastroduodenoscopy Biopsies of duodenum, gastric antrum ulcer, gastric cardia ulcer, distal esophagitis Same procedure as scheduled: Yes Indications: This is a 69-year-old man with acute GI bleed. He has a recent history of NSAID use. He has a left humeral fracture, and is not able to lay on his left shoulder. Because of concerns for active bleeding, and inability to position him on his left side for the procedure, anesthesiology was consulted to provide general anesthesia and endotracheal intubation. This is a high risk procedure, and therefore anesthesiologist was necessary in order to safely complete the procedure. Surgeon: Anjali Torres Procedure Notes SCOAP/Timeout: Performed Procedure in detail: The patient was brought to the room and placed in supine position. General anesthesia was induced the patient was intubated by Dr. Sherman. A bite block was positioned in the patient's mouth to protect the lips, teeth, and tongue for the procedure. A surgical time-out was performed and the procedure was begun. The lubricated gastroscope was passed through the bite block and across the tongue and into the esophagus without incident. A tubular view of the esophagus was maintained as the scope was advanced through the esophagus and into the stomach. The scope was advanced through the stomach and to the pylorus. The scope was gently popped through the pylorus and into the duodenal bulb. The scope was flexed and advanced into the second and third portions of the duodenum. The duodenum and duodenal bulb appeared inflamed. There was a large shallow ulcer in the 1st part of the duodenum which was biopsied. The scope was withdrawn into the stomach. There was a large pre- pyloric ulcer in the gastric antrum, with adherent white slough at its center. There was no active bleeding. I power wash the ulcer, and this left did not come off. I biopsied the edges of the ulcer to rule out malignancy. The stomach otherwise [appeared fairly normal]. The scope was retroflexed and the gastric cardia was examined. There was a large 2 cm by 1.5 cm ulcer in the gastric cardia which was covered with adherent slough. There was not actively bleeding. I biopsied the heaped up edges of the ulcer. There was no hiatal hernia. The hiatus was snug around the scope.. The scope was then straighte gopal, and withdrawn into the esophagus. The Z-line was broken, with multiple tongues of salmon-colored mucosa coming well up into the distal esophagus. Some of the mucosa was beefy and pink. I took biopsies of this area. The middle and upper thirds of the esophagus appeared fairly normal. The scope was then withdrawn through the esophagus with a tubular view. The scope was then withdrawn from the patient the procedure was concluded. The patient tolerated the procedure well and was transferred to the PACU in stable condition. Findings: Barnett's esophagus, duodenal ulcer, gastric ulcer, gastritis and possible cancer (Most likely a benign ulcer) Specimen(s): other (Biopsies of duodenal ulcer, gastric antral ulcer, gastric cardia ulcer, distal esophagus) Complications: none Impression: Multiple acute ulcers in various stages of healing. Likely secondary to NSAID use, remote possibility of malignancy or dysplasia. Post-procedure Recommendations: Stop medication(s) (Stop NSAIDs) and Continue medication(s) (Continue high-dose PPI and repeat EGD 6-8 weeks) Plan for aftercare: Transfer back to floor, advanced diet as tolerated, continue high-dose PPI, hold all NSAIDs. Follow up: weeks (Six 10 8) Disposition: PACU
[2020-02-19] MEDS: ONDANSETRON 4 MG/2 ML INJ IV (13:58)
--- NOTE | 2020-02-19 14:19 | SUR.PHASEI ---
Stable pacu stay after brief c/o nausea which soon resolved with ondansetron administration. Report called to barbara manley transported back up to room.
--- NOTE | 2020-02-19 14:24 | PC.NURSE ---
Pt back to room 221 via bed from PACU. Awake, alert, and oriented x 3. Denies pain, nausea, or shortness of breath. RA O2 sat is 90%-placed Pt back on 2L via NC as was the case in PACU. Pt bed alarm on.
[2020-02-20] VITALS (19 sets, daily range): BP systolic 95–127; BP diastolic 53–77; PULSE 70–95; RESP 16–18; TEMP 36.2–37; O2SAT 2–96
[2020-02-20] MEDS: OXYCODONE/ACETAMINOPHEN 5/325 TABLET 1 TAB PO ×4 (02:54→22:10)
[2020-02-20] MEDS: LEVOTHYROXINE 75 MCG TABLET 150 MCG PO (05:59)
[2020-02-20 06:53] LABS: Hemoglobin 6.7 g/dL (13.5-17.5)
--- NOTE | 2020-02-20 06:56 | PC.NURSE ---
Dr. Vargas called now and informed of critical H&H result of , MD will take care of it when he gets here.
[2020-02-20 06:57] LABS: BUN Creatinine Ratio 45.2 (6-22); Blood Urea Nitrogen 38 mg/dL (9-20); Calcium 7.9 mg/dL (8.4-10.2); Carbon Dioxide 34 mmol/L (22-32); Chloride 104 mmol/L (98-107); Estimated Glomerular Filt Rate > 60.0 mL/min (>60); Glucose 91 mg/dL (80-110); HEMOLYSIS < 15 (0-50); Sodium 137 mmol/L (137-145)
--- NOTE | 2020-02-20 07:58 | P.PN_ITS ---
Subjective Subjective Date Patient Seen: 02/20/20 Time Patient Seen: 07:58 Interval history: Endoscopy yesterday showed 3 active ulcers to in the stomach and 1 in the 1st portion of the duodenum. None appear to have a high risk features. Biopsies were obtained. Patient had uneventful evening. No evidence of active bleeding. Eating okay without particular difficulty. Hemoglobin hematocrit this morning however have dropped with hematocrit of 21% Exam Vital Signs (past 8 hours): - 02/20/20 00:00 02/20/20 05:59 Temperature 97.2 F L 97.4 F L Pulse Rate 95 H 88 Respiratory Rate 16 16 Blood Pressure 127/74 125/63 Pulse Oximetry 93 94 Oxygen Delivery Method Nasal Cannula Oxygen Flow Rate 0 Objective Labs Result Diagrams: 02/20/20 06:40 02/20/20 06:40 Labs: Laboratory Results - last 24 hr 02/20/20 02/20/20 06:40 06:40 Hgb 6.7 L* Hct 21.0 L Sodium 137 Potassium 4.0 Chloride 104 Carbon Dioxide 34 H BUN 38 H Creatinine 0.84 Estimated GFR > 60.0 BUN/Creatinine Ratio 45.2 H Glucose 91 Calcium 7.9 L Assessment & Plan Assessment & Plan narrative: 1. Upper GI bleed with acute blood loss anemia-patient had low risk findings on endoscopy but certainly has dropped his counts low enough that he would benefit from blood transfusion. I am going to go ahead and give him 3 units of packed red cells to try and get close to a hemoglobin of 10/hematocrit of 30. No evidence of active bleeding to be overly concerned I am sure this is just equilibration of his fluids and reflects the actual blood he lost during the bleeding portion of his illness Discussed that with him at length and I think he understands. Continue with proton pump inhibitor parenterally here for now and plan to discharge on high-dose proton pump inhibitor. Still awaiting pathology for possibility of H pylori and the need for treatment of that. Would also recommend patient issue and iron therapy upon discharge to help replace his own stores and or insure he can get his red blood cell replacement up and running 2. Left humeral fracture-patient is doing okay with oxycodone as pain management. Was using Aleve at home. Certainly cannot be using Aleve in the future. When discharge will need a prescription for oxycodone which I have written and sent to patient's pharmacy this morning. 3. Patient's other medical issues including his COPD is hypothyroidism his neuropathy etcetera are stable. He is going to struggle a bit with his neurop athy without the NSAIDs. For now the oxycodone will cover that but will need to work as an outpatient defined replacement therapy for this as well Overall patient will likely spend the day in the hospital receiving blood transfusion. Plan to recheck hemoglobin hematocrit following blood transfusion and then again in the morning. If stable he can likely be discharged home. If discharged tomorrow will need to be on b.i.d. proton pump inhibitor as well as a prescription for oxycodone (which is written and transmitted to the pharmacy today), as well as recommendation for iron replacement therapy. He should stop all of his NS AID use and otherwise continue his usual medications. I would like to see him in the clinic in about 10 days or perhaps [address] Alvares to see the patient tomorrow Sunday the 20 February in my absence. Note: Greater than 30 minutes was spent evaluating the patient on the floor, including examining the patient, discussing clinical course with clinical and nursing staff, reviewing clinical course in the computer, preparing documentation and writing orders for continued management of care, discussing status with family as appropriate, reviewing plans for the next 24 hours with both patient/family and nursing staff as appropriate. Quality VTE Deep Vein Thrombosis/Pulmonary Embolism Present on Admission: No
[2020-02-20] MEDS: METOPROLOL ER 50 MG TABLET PO (08:43)
[2020-02-20] MEDS: DULOXETINE 30 MG CAPSULE PO (08:47)
[2020-02-20] MEDS: PANTOPRAZOLE 80 MG in SODIUM CHLORIDE 0.9% 100 ML 10 ML IV (09:33)
--- NOTE | 2020-02-20 11:12 | PC.NURSE ---
Day shift note: Patient awake, alert, and cooperative. Received on O2 at 2L via NC, sats 93-96%. Sporadic congested cough noted, states has had a mild cough prior to admission. Pallor to face and mucous membranes. Dr. Vargas at bedside this am, 3 Units PRBC ordered. Consent obtained. First unit initiated at 0920, educated regarding s/sx of transfusion reaction. VSS and afebrile. Second IV started, Protonix infusion initiated at 10ml/hr as ordered. Abdomen soft, non tender, round, active BS. Up OOB to BR, SBA, steady gait noted. No C/O SOB or dizziness. Bilateral LE ankle edema noted 1+, and bilateral foot neuropathy, L > R, states is baseline. Refusing SCDs, discussed importance of use. Encouraged to perform foot pumps while in bed. C/O pain to left shoulder, medicated with Percocet as ordered, adequate pain control. Call light within reach, calls appropriately for staff assistance.
--- NOTE | 2020-02-20 12:51 | CM.DPC ---
DCP continued: EMR Reviewed: Cm met with patient today and disscussed D/c plan. patient is having issues with blood loss and needed a few units of blood. patient stated he is feeling better now but is still tired and weak. D/C plan is still home with partner Josi when medically stable. No D/C planning needs noted but Care management department will follow to help with nay new DCP needs that may arise. Diane Rahman RN.
[2020-02-20] MEDS: SODIUM CHLORIDE 0.9% 1,000 ML 135 ML IV (20:30)
[2020-02-20] MEDS: SODIUM CHLORIDE 0.9% FLUSH 10 ML IV (20:32)
[2020-02-20] MEDS: PANTOPRAZOLE 40 MG TABLET PO (20:34)
--- NOTE | 2020-02-20 21:06 | PC.NURSE ---
Assumed care of pt at 1500. Pt resting in bed during bedside hand-off. 2nd unit of PRBC's transfusing. 3rd unit transfused per TAR, Lab notified for H/H lab draw. Pt cooperative with care, calling appropriately for needs.
[2020-02-20 21:18] LABS: Hematocrit 29.8 % (41-53); Hemoglobin 9.7 g/dL (13.5-17.5)
[2020-02-21 00:24] VITALS: BP 120/65; PULSE 80; RESP 18; TEMP 36.8; O2SAT 93
[2020-02-21] MEDS: OXYCODONE/ACETAMINOPHEN 5/325 TABLET 1 TAB PO ×2 (03:57→09:29)
[2020-02-21] MEDS: SODIUM CHLORIDE 0.9% 1,000 ML 135 ML IV (03:57)
[2020-02-21 05:23] LABS: Hematocrit 28.6 % (41-53); Hemoglobin 9.5 g/dL (13.5-17.5)
[2020-02-21 05:32] VITALS: BP 112/68; PULSE 74; RESP 18; TEMP 36.9; O2SAT 97
[2020-02-21] MEDS: LEVOTHYROXINE 75 MCG TABLET 150 MCG PO (06:21)
[2020-02-21] MEDS: PANTOPRAZOLE 40 MG TABLET PO (06:22)
[2020-02-21 08:49] VITALS: BP 112/64; PULSE 86; RESP 17; TEMP 36.5; O2SAT 97
--- NOTE | 2020-02-21 09:13 | P.DS_ITS ---
History of Present Illness History of Present Illness Date Patient Seen: 02/21/20 Time Patient Seen: 09:13 Date of Onset of Symptoms: 02/19/20 Chief complaint: Diarrhea w/ Blood, SOB, sweats Narrative: Upper GI bleed Discharge Providers Provider Date of admission: 02/18/20 21:13 Discharge Date: 02/21/20 Primary care physician: Blas Vargas MD Consults: 02/18/20 21:57 Consult to Pastoral Services Routine Comment: for gagan 02/20/20 22:59 Consult to Respiratory Therapy Evaluate & Treat Comment: Physician Instructions: Evaluate and treat Discharge provider: Kyree Alvares MD Summary Hospital Course Discharge Diagnosis: 1. Gastric ulcer. 2. Duodenal ulcer. 3. Gastritis. 4. Acute blood loss anemia. 5. Pre-existing COPD. 6. Pre-existing fractured left humerus. 7. Hypothyroidism stable. 8. Peripheral neuropathy that will nose likely get worse now he is unable to take his in nonsteroidal anti-inflammatory medications. He does have oxycodone for his shoulder so he may well end up taking that. Suggested Tylenol but yet to be determined. 9. Pre-existing hypertension stable Hospital Course: Patient was admitted for evaluation where he was found to have a upper GI bleed. Underwent endoscopy the by Dr. Fong that showed a gastric ulcer and duodenal ulcer was gastritis. Biopsies were taken and they are pending. Is not bleeding at the time. He has been placed on double dose of the proton pump inhibitors. Additionally yesterday morning his hemoglobin dropped down to the 6.0 range. He has since been given 3 units of packed cells. Hemoglobin this morning was 9.5. No evidence for any per residual bleeding. Apparently has some of slight did black stools yesterday Additionally while he was getting blood transfusion during the night did receive supplemental oxygen but he normally does not require supplemental oxygen. He does have COPD and he has inhalers but again has not need oxygen at home. He will be discharged today on by on acid reducers twice a day prescription written. Ferrous sulfate. See Dr. Vargas in today's or so. Have CBC t prior to that visit Exam Vital Signs (past 8 hours): - 02/21/20 05:32 02/21/20 08:49 Temperature 98.4 F 97.7 F Pulse Rate 74 86 Respiratory Rate 18 17 Blood Pressure 112/68 112/64 Pulse Oximetry 97 97 Oxygen Delivery Method Nasal Cannula Oxygen Flow Rate 1 Narrative Exam Narrative: Patient is resting quietly in hospital bed appears in no distress HEENT is unremarkable. Chest exam sitting up at lungs are entirely clear does not take a deep breath however. Cardiac exam regular rhythm no murmur gallop. Pretty slowly cousin is fractured left humerus and his peripheral neuropathy. Objective Labs Result Diagrams: 02/21/20 05:09 02/20/20 06:40 Labs: Laboratory Results - last 24 hr 02/20/20 02/20/20 02/21/20 07:39 21:13 05:09 Hgb 9.7 L 9.5 L Hct 29.8 L 28.6 L Blood Type A Positive Antibody Screen Negative Crossmatch See Detail Hemoglobin from this morning is noted 9.5 Discharge Assessment & Plan Assessment and Plan Assessment: 1. Upper GI bleed. 2. Gastric ulcers. 3. Duodenal ulcer. 4. Acute blood loss anemia. 5. COPD stable Plan of Treatment: Patient be placed on proton pump inhibitor twice a day for perhaps a month or so perhaps a indefinitely. He will be on iron replacement ferrous sulfate 325 once a day. He will be seeing Dr. Vargas in 10 days. Pathology of the biopsies are pending. Get a CBC prior to his visit Dr. Vargas. Pain medications include oxycodone and Tylenol as needed Discharge Plan Discharge Plan Patient Disposition: Home Provider Discharge Comment: appt c Dr. Vargas 10 days. cbc before appt Discharge orders & Medications Prescriptions: New oxycodone 5 mg tablet 5 - 10 mg PO QID PRN (Reason: pain) Qty: 30 RF: 0 omeprazole 40 mg capsule,delayed release(DR/EC) 40 mg PO BID Qty: 60 RF: 3 ferrous sulfate 325 mg (65 mg iron) tablet 325 mg PO DAILY Qty: 90 RF: 3 Continued cyanocobalamin (vitamin B-12) 1,000 MCG tablet extended release 1,000 mcg PO QDAY Qty: 0 RF: 0 levothyroxine 150 mcg tablet See Rx Instructions .ROUTE .COMPLEX Qty: 90 RF: 3 duloxetine 30 mg capsule,delayed release(DR/EC) 30 mg PO DAILY Qty: 90 RF: 3 chlorthalidone 25 mg tablet 25 mg PO QDAY Qty: 90 RF: 2 albuterol sulfate [Proventil HFA] 90 mcg/actuation HFA aerosol inhaler 2 puff INHALATION Q4HP PRN (Reason: shortness of breath or wheezing) Qty: 2 RF: 3 [place] 160 mcg/actuation HFA aerosol inhaler 2 puff INHALATION BID Qty: 6.1 RF: 11 diphenhydramine HCl [Allergy (diphenhydramine)] 25 mg capsule 25 mg PO Q4-6H PRN (Reason: Itching) RF: 0 metoprolol succinate 50 mg capsule,sprinkle,ER 24hr 50 mg PO DAILY Qty: 90 RF: 3 fluticasone propionate 50 mcg/actuation spray,suspension 2 spray NASAL BEDTIME PRN (Reason: Allergy Symptoms) RF: 0 Combivent Respimat 20-100 mcg/actuation mist 1 puff INHALATION BID RF: 0 Discontinued naproxen sodium [Aleve] 220 mg capsule 660 mg PO DAILY PRN (Reason: Pain, Moderate) RF: 0 tramadol 50 mg tablet 50 mg PO TID PRN (Reason: pain) Qty: 120 RF: 0 hydrocodone-acetaminophen [[place]] 5-325 mg tablet 1 tab PO Q6H PRN (Reason: pain) Qty: 20 RF: 0 Follow up/Referrals: Blas Vargas MD [Primary Care Provider] - 2 Weeks (10-14 days) Discharge Health Status Multidrug resistant organism: No MDRO Diet/Activity/Treatments Diet: Diet as Tolerated Visit Report/Discharge Packet Instructions: DI for Gastric Ulcer, Iron Supplements (By mouth) Discharge Data Primary Care Provider: Blas Vargas Quality VTE Deep Vein Thrombosis/Pulmonary Embolism Present on Admission: No
[2020-02-21 09:23] VITALS: BP 125/67; PULSE 92
[2020-02-21] MEDS: DULOXETINE 30 MG CAPSULE PO (09:23)
[2020-02-21] MEDS: METOPROLOL ER 50 MG TABLET PO (09:23)
--- NOTE | 2020-02-21 10:34 | PC.NURSE ---
Addendum entered by Stephanie Hsieh R.N. 02/21/20 11:04: Discharged home via private vehicle. Original Note: Day shift note: Awake, alert, and pleasantly cooperative. Weaned off O2, on RA, sats 90-93, with activity and at rest. Up OOB to BR, ambulating independently, steady gait, dressed self, required minimal assistance with shoes and left arm sling. No c/o dizziness or SOB. Arm sling place to left arm, due to fracture, (present on admission) CMS intact. Voiding, no tarry stools this am. Dr. Alvares at bedside this am. Discharge instructions given to patient, discussed importance of F/U with Dr. Vargas in 10 days, CBC prior to appointment. Discussed importance of new medications/adherence, side effects, dietary changes, and worsening symptoms. Verbalized understanding of instructions.
== END 2020-02-21 10:45 | disposition home or self-care (01) | DRG 378 ==
LOC: ED 20:57 → AC 21:13
PROVIDERS: Emergency Medicine; Surgery; Admitting Provider Family Medicine; Emergency Provider Emergency Medicine; PCP Internal Medicine; Referring Provider Emergency Medicine; Visit Provider Internal Medicine
PROC: 0DJ08ZZ Inspection of Upper Intestinal Tract, Via Natural or Artificial Opening Endoscopic (ICD-10-PCS; CPT 43235; principal; 2020-02-19 13:15)
DX: K25.0 Acute gastric ulcer with hemorrhage (principal); D62 Acute posthemorrhagic anemia; K26.0 Acute duodenal ulcer with hemorrhage; J44.9 Chronic obstructive pulmonary disease, unspecified; K22.70 Barrett's esophagus without dysplasia; G62.9 Polyneuropathy, unspecified; S42.302D Unspecified fracture of shaft of humerus, left arm, subsequent encounter for fracture with routine healing; E03.9 Hypothyroidism, unspecified; E66.9 Obesity, unspecified; Z68.37 Body mass index [BMI] 37.0-37.9, adult; Z79.1 Long term (current) use of non-steroidal anti-inflammatories (NSAID); Z11.59 Encounter for screening for other viral diseases
CPT/HCPCS: 36415; 36430; 71045; 74177; 80048; 80053; 80320; 81001; 83605; 83690; 84145; 85014; 85018; 85025; 85610; 85730; 86850; 86900; 86901; 87040; 87635; 90471; 90662; 93005; 94760; 96361; 96365; 96375; 99223; 99232; 99238; 99285; P9016; A9270; C9113; J0330; J2405; J2704; J3010; Q9967

== ENCOUNTER 2020-02-24 12:51 | Inpatient (IN) | payer OTHER, SELFPAY ==
[2020-02-18 21:20] VITALS: BMI 37.8
[2020-02-24 13:08] VITALS: BP 151/79; PULSE 110; RESP 16; TEMP 37.3; O2SAT 94; BMI 41.5
--- NOTE | 2020-02-24 13:28 | DI.RAD.S_ITS ---
PROCEDURE: XR CHEST 1V INDICATIONS: suspected sepsis TECHNIQUE: One view of the chest was acquired. COMPARISON: [facility], CR, XR CHEST 1V, 02/18/2020, 16:17. [facility], CR, XR CHEST 2V, 03/24/2019, 10:07. FINDINGS: Surgical changes and devices: Prior anterior cervical fusion plate. Lungs and pleura: Lungs are clear. No pleural effusions or pneumothorax. Mediastinum: Mediastinal contours appear normal. Heart size is normal. Bones and chest wall: No suspicious bony lesions. Overlying soft tissues appear unremarkable. IMPRESSION: Reduced inspiratory volume, no definite acute disease. Prior cervical fusion plate noted low cervical spine. Dictated by: Cruz Elias M.D. on 02/24/2020 at 14:19 Approved by: rCuz Elias M.D. on 02/24/2020 at 14:26
[2020-02-24 13:53] LABS: Add Manual Diff / Slide Review NO; Basophils Absolute Auto 100 /uL (0-100); Basophils Percent Auto 0.6 % (0-2); Eosinophils Absolute Auto 100 /uL (0-450); Eosinophils Percent Auto 0.7 % (2-4); Hematocrit 34.2 % (41-53); Hemoglobin 11.1 g/dL (13.5-17.5); Lymphocytes Absolute Auto 1400 /uL (1100-4500); Lymphocytes Percent Auto 7.1 % (25-40); Mean Corpuscular HGB Conc 32.3 % (30-36); Mean Corpuscular Hemoglobin 29.9 PG (26-34); Mean Corpuscular Volume 92.5 fL (80-100); Monocytes Absolute Auto 2000 /uL (0-900); Monocytes Percent Auto 10.5 % (3-14); Neutrophils Absolute Auto 15400 /uL (1500-7000); Neutrophils Percent Auto 81.1 % (50-75); Platelet Count 677 X10^3/uL (150-400); Red Cell Distribution Width 15.7 % (11.6-14.8)
[2020-02-24 14:02] LABS: INR 1.1 (0.9-1.3); Prothrombin Time 12.7 SECONDS (10.1-12.7)
[2020-02-24 14:04] LABS: PTT Partial Thromboplastin Tim 30 SECONDS (26.4-36.2)
[2020-02-24 14:07] LABS: Alanine Aminotransferase 27 IU/L (<50); Albumin 3.7 g/dL (3.5-5.0); Albumin Globulin Ratio 1.1 (1.0-2.8); Alkaline Phosphatase 119 U/L (38-126); Aspartate Aminotransferase 27 IU/L (17-59); BUN Creatinine Ratio 17.1 (6-22); Bilirubin Total 0.7 mg/dL (0.2-1.3); Blood Urea Nitrogen 12 mg/dL (9-20); Carbon Dioxide 37 mmol/L (22-32); Chloride 93 mmol/L (98-107); Estimated Glomerular Filt Rate > 60.0 mL/min (>60); Globulin 3.3 g/dL (1.7-4.1); Glucose 156 mg/dL (80-110); HEMOLYSIS < 15 (0-50); Lipase 25 U/L (23-300); Potassium 3.7 mmol/L (3.4-5.1); Sodium 134 mmol/L (137-145)
[2020-02-24 14:08] LABS: Lactate (Lactic Acid) 1.1 mmol/L (0.7-2.1)
[2020-02-24] MEDS: SODIUM CHLORIDE 0.9% 1,000 ML 1000 ML IV (14:18)
[2020-02-24 14:22] LABS: Procalcitonin < 0.05 ng/mL (<0.5)
--- NOTE | 2020-02-24 15:01 | DI.US.S_ITS ---
PROCEDURE: US PERIPH VENOUS UP EXTREM LT INDICATIONS: pain, swelling, had an IV start on affected wrist TECHNIQUE: Real-time imaging, as well as color and pulse Doppler interrogation, was performed of the left upper extremity deep veins from the inferior neck to the antecubital fossa. COMPARISON: None. FINDINGS: The internal jugular vein, visualized portions of the subclavian vein, axillary, and brachial veins are free of intraluminal thrombus. Where physically possible, the veins are normally compressible. Color and pulse Doppler demonstrate normal intraluminal flow, with expected phasicity and pulsatility. Additional scanning of the cephalic and basilic veins of the superficial system demonstrate normal compressibility, without thrombus. IMPRESSION: No DVT was found left upper extremity. Dictated by: Cruz Elias M.D. on 02/24/2020 at 16:47 Approved by: Cruz Elias M.D. on 02/24/2020 at 16:53
[2020-02-24 15:27] LABS: D Dimer 1037 ng/mL (<230)
[2020-02-24] MEDS: MORPHINE 4 MG/ML INJ IV ×2 (15:49→16:47)
--- NOTE | 2020-02-24 15:53 | ED.SKABFB ---
HPI - Skin/Abscess/Foreign Bdy <ORTIZ Gaines - Last Filed: 02/24/20 20:52> General Chief complaint: Skin/Abscess/Foreign Body Stated complaint: LEFT ARM SWELLING Time Seen by Provider: 02/24/20 14:45 Source: patient Mode of arrival: Ambulatory Limitations: no limitations History of Present Illness HPI narrative: This is a 69-year-old male, former smoker, who has past medical history significant for asthma, COPD, recent left humerus fracture, splenectomy secondary to trauma recently was admitted to hospital with gastric ulcer and upper GI bleed and discharged to home 3 days ago presents to ED with left arm pain and swelling with chills. Patient reports some dizziness but denies chest pain, or dyspnea. Patient reports this is his 3rd visit ED this week. Patient denies fever, nausea or vomiting. Patient was to start physical therapy session this afternoon for left humerus fracture. Reports he had IV insertion on left lower wrist when he was in the hospital. Patient reports hayfever and has some short of breath and received Covid test during last visit which was negative. Patient denies known exposure to COVID since then. Patient is not O2 dependent at home and noticed O2 said ranging from 90-92% on 3L NC and tachycardia rate in 110's. Patient denies history of heart failure. Reports pain as 8/10 on left arm and has been using oxycodone for pain management. Related Data Home Medications Medication Instructions Recorded Confirmed cyanocobalamin (vitamin B-12) 1,000 mcg PO QDAY #0 04/04/17 02/24/20 diphenhydramine HCl 25 mg capsule 25 mg PO Q4-6H PRN 09/14/17 02/24/20 Combivent Respimat 1 puff INHALATION BID 02/19/20 02/24/20 fluticasone propionate 2 spray NASAL BEDTIME PRN 02/19/20 02/24/20 Previous Rx's Medication Instructions Recorded levothyroxine 150 mcg tablet See Rx Instructions .ROUTE 05/12/19 .COMPLEX #90 tab chlorthalidone 25 mg tablet 25 mg PO QDAY #90 tab 08/22/19 duloxetine 30 mg capsule,delayed 30 mg PO DAILY #90 cap 08/22/19 release albuterol sulfate 90 mcg/actuation 2 puff INHALATION Q4HP PRN #2 10/06/19 aerosol inhaler device metoprolol succinate 50 mg capsule 50 mg PO DAILY #90 each 12/09/19 sprinkle, ext. release 24 hr ciclesonide 160 mcg/actuation 2 puff INHALATION BID #6.1 gram 01/14/20 aerosol inhaler ferrous sulfate 325 mg PO DAILY #90 tab 02/20/20 omeprazole 40 mg PO BID #60 cap 02/20/20 oxycodone 5 - 10 mg PO QID PRN #30 tab 02/20/20 Allergies Allergy/AdvReac Type Severity Reaction Status Date / Time animal dander [ANIMAL DANDER] Allergy Unknown Verified 02/24/20 13:21 crab [CRAB] Allergy Unknown Verified 02/24/20 13:21 pollen extracts Allergy Unknown Verified 02/24/20 13:21 [POLLEN EXTRACTS] Review of Systems <ORTIZ Gaines - Last Filed: 02/24/20 20:52> Review of Systems Narrative: General: Denies fever, chills, fatigue, malaise, sweats. HEENT: Denies sinus pain, ear pain, sore throat, difficulty swallowing, dizziness. Respiratory: See HPI Cardiovascular: Denies chest pain, palpitations, orthopnea, edema. Gastrointestinal: Denies nausea, vomiting, abdominal pain, diarrhea, constipation, melena. : Denies dysuria, frequency, incontinence, hematuria, urinary retention. Musculoskeletal: See HPI Skin: See HPI Neurologic: Denies weakness, headache, numbness, change in speech, confusion, seizures, incoordination. Psychiatric: No concerning psychosocial issues. 12-point review of systems is negative except for those stated above. Patient History <ORTIZ Gaines - Last Filed: 02/24/20 20:52> Medical History (Updated 02/25/20 @ 08:26 by Blas Vargas MD) Acquired insufficiency of aortic valve (10/08/15) Chronic obstructive pulmonary disease (01/19/11) Cobalamin deficiency CTS (carpal tunnel syndrome) Duodenal ulcer Eczema Essential hypertension Gastric ulcer History of malignant neoplasm of prostate Hypothyroidism (08/21/14) Idiopathic peripheral neuropathy Leukocytosis (01/19/11) Low back pain of over 3 months duration (11/15/16) Obesity (01/19/11) Prostate cancer (2010) Thrombocytosis (10/13/11) Weakness of right lower extremity (11/15/16) Surgical History History of spinal fusion (2012) History of splenectomy (1975) Status post wrist surgery (2011) Family History Brother Thyroid cancer Mother Breast cancer Father No problems noted. 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: [employer] travel history: recent () leisure activities: art (Photography), volunteer work and other (Traveling) Smoking Status: Former smoker Tobacco: How many years used: 15 Smokeless tobacco user: other (Cigarettes) quit status: quit date established (1989) second hand exposure: No alcohol intake: former substance use type: does not use Smoking Status: Former smoker alcohol intake frequency: holidays/special occasions only Substance Use Type: does not use Exam <ORTIZ Gaines - Last Filed: 02/24/20 20:52> Initial Vital Signs Initial Vital Signs: Vital Signs Temperature 99.2 F 02/24/20 13:08 Pulse Rate 110 H 02/24/20 13:08 Respiratory Rate 16 02/24/20 13:08 Blood Pressure 151/79 H 02/24/20 13:08 Pulse Oximetry 94 02/24/20 13:08 <Marcela Vergara DO - Last Filed: 02/25/20 11:49> Initial Vital Signs Initial Vital Signs: Vital Signs Temperature 99.2 F 02/24/20 13:08 Pulse Rate 110 H 02/24/20 13:08 Respiratory Rate 16 02/24/20 13:08 Blood Pressure 151/79 H 02/24/20 13:08 Pulse Oximetry 94 02/24/20 13:08 Course <ORTIZ Gaines - Last Filed: 02/24/20 20:52> Orders Ordered: Acetaminophen (Acetaminophen 325 Mg Tablet) 650 mg PO Q6HR PRN PRN Reason: Fever/Mild Pain (1-3) Last Admin: 02/25/20 10:59 Dose: 650 mg Documented by: NIMISHA Albuterol (Albuterol Hfa 200 Puff/18 Gm Inh (Covid Pos/Vent Pts)) 2 puff INH RTQ4HR PRN PRN Reason: Shortness Of Breath Albuterol/Ipratropium (Albuterol/Ipratropium Mdi) 1 puff INH BID [facility] Last Admin: 02/25/20 07:49 Dose: 1 puff Documented by: Admin: 02/24/20 20:48 Dose: 1 puff Documented by: CARLEE Chlorthalidone (Chlorthalidone 25 Mg Tablet) 25 mg PO DAILY [facility] Last Admin: 02/25/20 09:19 Dose: 25 mg Documented by: NIMISHA Cyanocobalamin (Cyanocobalamin (Vitamin B-12) 500 Mcg Tablet) 1,000 mcg PO DAILY [facility] Last Admin: 02/25/20 09:18 Dose: 1,000 mcg Documented by: NIMISHA Diphenhydramine HCl (Diphenhydramine 25 Mg Tablet) 25 mg PO Q4H PRN PRN Reason: Itching Duloxetine HCl (Duloxetine 30 Mg Capsule) 30 mg PO DAILY [facility] Last Admin: 02/25/20 09:18 Dose: 30 mg Documented by: NIMISHA Ferrous Sulfate (Ferrous Sulfate 325 Mg Tablet) 325 mg PO DAILY [facility] Last Admin: 02/25/20 09:18 Dose: 325 mg Documented by: NIMISHA Fluticasone Propionate (Fluticasone 120 [place]/16 Gm [place].Susp) 2 spray NASAL BEDTIME PRN PRN Reason: Allergy Symptoms Cefazolin Sodium/Dextrose (Ancef) 2 gm in 100 mls @ 200 mls/hr IV Q8H [facility] Stop: 03/03/20 08:44 Last Infusion: 02/25/20 09:50 Dose: 0 mls/hr Documented by: Admin: 02/25/20 09:18 Dose: 200 mls/hr Documented by: NIMISHA Metoprolol Succinate (Metoprolol Er 50 Mg Tablet) 50 mg PO DAILY [facility] Last Admin: 02/25/20 09:20 Dose: 50 mg Documented by: NIMISHA Morphine Sulfate (Morphine 2 Mg/Ml Inj) 4 mg IV Q4HR PRN PRN Reason: Pain, Severe (7-10) Nf - Ciclesonide ( [place]) 160 Mcg/Actuation Hfa Aerosol Inhaler 2 puff INH BID [facility] Last Admin: 02/25/20 09:20 Dose: Not Given Documented by: Admin: 02/24/20 20:49 Dose: Not Given Documented by: CARLEE Ondansetron HCl (Ondansetron 4 Mg/2 Ml Inj) 4 mg IV Q6HR PRN PRN Reason: Nausea And Vomiting Oxycodone HCl (Oxycodone Ir 5 Mg Tablet) 5 mg PO Q3HR PRN PRN Reason: Pain, Moderate (4-6) Last Admin: 02/25/20 10:58 Dose: 5 mg Documented by: CPEOLYA Pantoprazole Sodium (Pantoprazole 40 Mg Tablet) 40 mg PO BID [facility] Last Admin: 02/25/20 09:18 Dose: 40 mg Documented by: Admin: 02/24/20 20:59 Dose: 40 mg Documented by: GREG Discontinued Medications Sodium Chloride (Normal Saline 0.9%) 1,000 mls @ 1,000 mls/hr IV BOLUS ONE Stop: 02/24/20 14:27 Last Infusion: 02/24/20 18:19 Dose: 0 mls/hr Documented by: Admin: 02/24/20 14:18 Dose: 1,000 mls/hr Documented by: MARIUM Sodium Chloride (Normal Saline 0.9%) 500 mls @ 1,000 mls/hr IV BOLUS ONE Stop: 02/24/20 15:31 Last Admin: 02/25/20 00:37 Dose: Not Given Documented by: RUPALI Vancomycin HCl/Dextrose (Vancomycin) 1,500 mg in 300 mls @ 200 mls/hr IV NOW ONE Stop: 02/24/20 17:55 Last Infusion: 02/24/20 18:18 Dose: 0 mls/hr Documented by: Admin: 02/24/20 16:46 Dose: 200 mls/hr Documented by: LORELEIONEBina Sodium Chloride (Normal Saline 0.9%) 1,000 mls @ 125 mls/hr IV CONT [facility] Last Infusion: 02/25/20 10:56 Dose: 0 mls/hr Documented by: Admin: 02/25/20 02:47 Dose: 125 mls/hr Documented by: Infusion: 02/25/20 02:47 Dose: 125 mls/hr Documented by: Admin: 02/24/20 18:20 Dose: 125 mls/hr Documented by: GREG Vancomycin HCl (Vancomycin) 1,250 mg in 250 mls @ 250 mls/hr IV Q12H [facility] Last Infusion: 02/25/20 06:35 Dose: 0 mls/hr Documented by: Admin: 02/25/20 05:08 Dose: 250 mls/hr Documented by: RUPALI Morphine Sulfate (Morphine 4 Mg/Ml Inj) 4 mg IV NOW ONE Stop: 02/24/20 15:03 Last Admin: 02/24/20 15:49 Dose: 4 mg Documented by: LUCRECIA Morphine Sulfate (Morphine 4 Mg/Ml Inj) 4 mg IV NOW ONE Stop: 02/24/20 16:29 Last Admin: 02/24/20 16:47 Dose: 4 mg Documented by: LUCRECIA Morphine Sulfate (Morphine 4 Mg/Ml Inj) 4 mg IV NOW ONE Stop: 02/24/20 18:15 Last Admin: 02/25/20 00:37 Dose: Not Given Documented by: RUPALI Morphine Sulfate (Morphine 2 Mg/Ml Inj) 4 mg IV Q4HR [facility] Last Admin: 02/25/20 05:07 Dose: 4 mg Documented by: Admin: 02/25/20 00:54 Dose: 4 mg Documented by: Admin: 02/24/20 20:17 Dose: 4 mg Documented by: GREG Vancomycin HCl (Vancomycin Trough) 1 request [facility] [place] [facility] [facility] Stop: 02/26/20 04:31 Reevaluation(s) Reevaluation #1: Patient reports pain improved at this time. Discussed with patient and spouse on negative findings for pulmonary embolism, left upper arm DVT. Paging Dr. Lopez to discuss the findings and to request admission for observation for cellulitis. Time: 17:30 Reevaluation #2: DR. Lopez kindly accepted the patient's care under observation for cellulitis and requested bridge order. Time: 17:45 Vital Signs Vital signs: Vital Signs - 8 hr 02/24/20 13:08 02/24/20 16:28 Temperature 99.2 F Pulse Rate 110 H 97 H Respiratory Rate 16 18 Blood Pressure 151/79 H 130/86 Pulse Oximetry 94 99 <Marcela Vergara, - Last Filed: 02/25/20 11:49> Orders Ordered: Acetaminophen (Acetaminophen 325 Mg Tablet) 650 mg PO Q6HR PRN PRN Reason: Fever/Mild Pain (1-3) Last Admin: 02/25/20 10:59 Dose: 650 mg Documented by: CPETRIC Albuterol (Albuterol Hfa 200 Puff/18 Gm Inh (Covid Pos/Vent Pts)) 2 puff INH RTQ4HR PRN PRN Reason: Shortness Of Breath Albuterol/Ipratropium (Albuterol/Ipratropium Mdi) 1 puff INH BID [facility] Last Admin: 02/25/20 07:49 Dose: 1 puff Documented by: Admin: 02/24/20 20:48 Dose: 1 puff Documented by: CARLEE Chlorthalidone (Chlorthalidone 25 Mg Tablet) 25 mg PO DAILY [facility] Last Admin: 02/25/20 09:19 Dose: 25 mg Documented by: NIMISHA Cyanocobalamin (Cyanocobalamin (Vitamin B-12) 500 Mcg Tablet) 1,000 mcg PO DAILY [facility] Last Admin: 02/25/20 09:18 Dose: 1,000 mcg Documented by: NIMISHA Diphenhydramine HCl (Diphenhydramine 25 Mg Tablet) 25 mg PO Q4H PRN PRN Reason: Itching Duloxetine HCl (Duloxetine 30 Mg Capsule) 30 mg PO DAILY [facility] Last Admin: 02/25/20 09:18 Dose: 30 mg Documented by: NIMISHA Ferrous Sulfate (Ferrous Sulfate 325 Mg Tablet) 325 mg PO DAILY [facility] Last Admin: 02/25/20 09:18 Dose: 325 mg Documented by: NIMISHA Fluticasone Propionate (Fluticasone 120 [place]/16 Gm [place].Susp) 2 spray NASAL BEDTIME PRN PRN Reason: Allergy Symptoms Cefazolin Sodium/Dextrose (Ancef) 2 gm in 100 mls @ 200 mls/hr IV Q8H [facility] Stop: 03/03/20 08:44 Last Infusion: 02/25/20 09:50 Dose: 0 mls/hr Documented by: Admin: 02/25/20 09:18 Dose: 200 mls/hr Documented by: NIMISHA Metoprolol Succinate (Metoprolol Er 50 Mg Tablet) 50 mg PO DAILY [facility] Last Admin: 02/25/20 09:20 Dose: 50 mg Documented by: NIMISHA Morphine Sulfate (Morphine 2 Mg/Ml Inj) 4 mg IV Q4HR PRN PRN Reason: Pain, Severe (7-10) Nf - Ciclesonide ( [place]) 160 Mcg/Actuation Hfa Aerosol Inhaler 2 puff INH BID [facility] Last Admin: 02/25/20 09:20 Dose: Not Given Documented by: Admin: 02/24/20 20:49 Dose: Not Given Documented by: CARLEE Ondansetron HCl (Ondansetron 4 Mg/2 Ml Inj) 4 mg IV Q6HR PRN PRN Reason: Nausea And Vomiting Oxycodone HCl (Oxycodone Ir 5 Mg Tablet) 5 mg PO Q3HR PRN PRN Reason: Pain, Moderate (4-6) Last Admin: 02/25/20 10:58 Dose: 5 mg Documented by: NIMISHA Pantoprazole Sodium (Pantoprazole 40 Mg Tablet) 40 mg PO BID [facility] Last Admin: 02/25/20 09:18 Dose: 40 mg Documented by: Admin: 02/24/20 20:59 Dose: 40 mg Documented by: GREG Discontinued Medications Sodium Chloride (Normal Saline 0.9%) 1,000 mls @ 1,000 mls/hr IV BOLUS ONE Stop: 02/24/20 14:27 Last Infusion: 02/24/20 18:19 Dose: 0 mls/hr Documented by: Admin: 02/24/20 14:18 Dose: 1,000 mls/hr Documented by: LUDAM Sodium Chloride (Normal Saline 0.9%) 500 mls @ 1,000 mls/hr IV BOLUS ONE Stop: 02/24/20 15:31 Last Admin: 02/25/20 00:37 Dose: Not Given Documented by: RUPALI Vancomycin HCl/Dextrose (Vancomycin) 1,500 mg in 300 mls @ 200 mls/hr IV NOW ONE Stop: 02/24/20 17:55 Last Infusion: 02/24/20 18:18 Dose: 0 mls/hr Documented by: Admin: 02/24/20 16:46 Dose: 200 mls/hr Documented by: BTONEBina Sodium Chloride (Normal Saline 0.9%) 1,000 mls @ 125 mls/hr IV CONT [facility] Last Infusion: 02/25/20 10:56 Dose: 0 mls/hr Documented by: ROSEMARIETRIC Admin: 02/25/20 02:47 Dose: 125 mls/hr Documented by: Infusion: 02/25/20 02:47 Dose: 125 mls/hr Documented by: Admin: 02/24/20 18:20 Dose: 125 mls/hr Documented by: GREG Vancomycin HCl (Vancomycin) 1,250 mg in 250 mls @ 250 mls/hr IV Q12H [facility] Last Infusion: 02/25/20 06:35 Dose: 0 mls/hr Documented by: Admin: 02/25/20 05:08 Dose: 250 mls/hr Documented by: RUPALI Morphine Sulfate (Morphine 4 Mg/Ml Inj) 4 mg IV NOW ONE Stop: 02/24/20 15:03 Last Admin: 02/24/20 15:49 Dose: 4 mg Documented by: LUCRECIA Morphine Sulfate (Morphine 4 Mg/Ml Inj) 4 mg IV NOW ONE Stop: 02/24/20 16:29 Last Admin: 02/24/20 16:47 Dose: 4 mg Documented by: LORELEIONEBina Morphine Sulfate (Morphine 4 Mg/Ml Inj) 4 mg IV NOW ONE Stop: 02/24/20 18:15 Last Admin: 02/25/20 00:37 Dose: Not Given Documented by: RUPALI Morphine Sulfate (Morphine 2 Mg/Ml Inj) 4 mg IV Q4HR [facility] Last Admin: 02/25/20 05:07 Dose: 4 mg Documented by: Admin: 02/25/20 00:54 Dose: 4 mg Documented by: Admin: 02/24/20 20:17 Dose: 4 mg Documented by: GREG Vancomycin HCl (Vancomycin Trough) 1 request [facility] [place] [facility] Stop: 02/26/20 04:31 Vital Signs Vital signs: Vital Signs - 8 hr 02/24/20 13:08 02/24/20 16:28 Temperature 99.2 F Pulse Rate 110 H 97 H Respiratory Rate 16 18 Blood Pressure 151/79 H 130/86 Pulse Oximetry 94 99 MDM - Skin/Abscess/Foreign Bdy <Guzman Lopez-Oras, GRAIN BLENDER - Last Filed: 02/24/20 20:52> Differential Diagnosis Differential diagnosis: Likely cellulitis and other (DVT, sepsis, pulmonary embolism, COPD exacerbation) Medical Records Attestation: I reviewed the patient's medical records. Lab Data Attestation: I reviewed the patient's lab results. Result diagrams: 02/24/20 13:40 02/24/20 13:40 Labs: Lab Results 02/24/20 02/24/20 02/24/20 Range/Units 13:40 13:40 13:40 WBC 19.0 H (4.5-11.0) X10^3/uL RBC 3.70 L (4.5-5.9) X10^6/uL Hgb 11.1 L (13.5-17.5) g/dL Hct 34.2 L (41-53) % MCV 92.5 (80-100) fL MCH 29.9 (26-34) PG MCHC 32.3 (30-36) % RDW 15.7 H (11.6-14.8) % Plt Count 677 H (150-400) X10^3/uL Neut % (Auto) 81.1 H (50-75) % Lymph % (Auto) 7.1 L (25-40) % [place] % (Auto) 10.5 (3-14) % Eos % (Auto) 0.7 L (2-4) % Baso % (Auto) 0.6 (0-2) % Neut # (Auto) 61015 H (4800-6735) /uL Lymph # (Auto) 1400 (6127-6598) /uL [place] # (Auto) 2000 H (0-900) /uL Eos # (Auto) 100 (0-450) /uL Baso # (Auto) 100 (0-100) /uL PT 12.7 (10.1-12.7) SECONDS INR 1.1 (0.9-1.3) APTT 30 (26.4-36.2) SECONDS D-Dimer (<230) ng/mL Sodium (137-145) mmol/L Potassium (3.4-5.1) mmol/L Chloride (98-107) mmol/L Carbon Dioxide (22-32) mmol/L BUN (9-20) mg/dL Creatinine (0.66-1.25) mg/dL Estimated GFR (>60) mL/min BUN/Creatinine Ratio (6-22) Glucose (80-110) mg/dL Lactate (0.7-2.1) mmol/L Calcium (8.4-10.2) mg/dL Total Bilirubin (0.2-1.3) mg/dL AST (17-59) IU/L ALT (<50) IU/L Alkaline Phosphatase (38-126) U/L Total Creatine Kinase (55-170) U/L CK-MB (CK-2) CK-MB (CK-2) Rel Index Troponin I (0.01-0.034) ng/mL NT-Pro-B Natriuret Pep (<125) pg/mL Total Protein (6.3-8.2) g/dL Albumin (3.5-5.0) g/dL Globulin (1.7-4.1) g/dL Albumin/Globulin Ratio (1.0-2.8) Lipase (23-300) U/L Procalcitonin < 0.05 (<0.5) ng/mL 02/24/20 02/24/20 02/24/20 Range/Units 13:40 13:40 13:40 WBC (4.5-11.0) X10^3/uL RBC (4.5-5.9) X10^6/uL Hgb (13.5-17.5) g/dL Hct (41-53) % MCV (80-100) fL MCH (26-34) PG MCHC (30-36) % RDW (11.6-14.8) % Plt Count (150-400) X10^3/uL Neut % (Auto) (50-75) % Lymph % (Auto) (25-40) % [place] % (Auto) (3-14) % Eos % (Auto) (2-4) % Baso % (Auto) (0-2) % Neut # (Auto) (1853-5228) /uL Lymph # (Auto) (6574-7928) /uL [place] # (Auto) (0-900) /uL Eos # (Auto) (0-450) /uL Baso # (Auto) (0-100) /uL PT (10.1-12.7) SECONDS INR (0.9-1.3) APTT (26.4-36.2) SECONDS D-Dimer 1037 H (<230) ng/mL Sodium 134 L (137-145) mmol/L Potassium 3.7 (3.4-5.1) mmol/L Chloride 93 L (98-107) mmol/L Carbon Dioxide 37 H (22-32) mmol/L BUN 12 (9-20) mg/dL Creatinine 0.70 (0.66-1.25) mg/dL Estimated GFR > 60.0 (>60) mL/min BUN/Creatinine Ratio 17.1 (6-22) Glucose 156 H (80-110) mg/dL Lactate 1.1 (0.7-2.1) mmol/L Calcium 9.0 (8.4-10.2) mg/dL Total Bilirubin 0.7 (0.2-1.3) mg/dL AST 27 (17-59) IU/L ALT 27 (<50) IU/L Alkaline Phosphatase 119 (38-126) U/L Total Creatine Kinase (55-170) U/L CK-MB (CK-2) CK-MB (CK-2) Rel Index Troponin I (0.01-0.034) ng/mL NT-Pro-B Natriuret Pep (<125) pg/mL Total Protein 7.0 (6.3-8.2) g/dL Albumin 3.7 (3.5-5.0) g/dL Globulin 3.3 (1.7-4.1) g/dL Albumin/Globulin Ratio 1.1 (1.0-2.8) Lipase 25 D (23-300) U/L Procalcitonin (<0.5) ng/mL 02/24/20 Range/Units 13:40 WBC (4.5-11.0) X10^3/uL RBC (4.5-5.9) X10^6/uL Hgb (13.5-17.5) g/dL Hct (41-53) % MCV (80-100) fL MCH (26-34) PG MCHC (30-36) % RDW (11.6-14.8) % Plt Count (150-400) X10^3/uL Neut % (Auto) (50-75) % Lymph % (Auto) (25-40) % [place] % (Auto) (3-14) % Eos % (Auto) (2-4) % Baso % (Auto) (0-2) % Neut # (Auto) (8416-0623) /uL Lymph # (Auto) (6671-3542) /uL [place] # (Auto) (0-900) /uL Eos # (Auto) (0-450) /uL Baso # (Auto) (0-100) /uL PT (10.1-12.7) SECONDS INR (0.9-1.3) APTT (26.4-36.2) SECONDS D-Dimer (<230) ng/mL Sodium (137-145) mmol/L Potassium (3.4-5.1) mmol/L Chloride (98-107) mmol/L Carbon Dioxide (22-32) mmol/L BUN (9-20) mg/dL Creatinine (0.66-1.25) mg/dL Estimated GFR (>60) mL/min BUN/Creatinine Ratio (6-22) Glucose (80-110) mg/dL Lactate (0.7-2.1) mmol/L Calcium (8.4-10.2) mg/dL Total Bilirubin (0.2-1.3) mg/dL AST (17-59) IU/L ALT (<50) IU/L Alkaline Phosphatase (38-126) U/L Total Creatine Kinase 34 L (55-170) U/L CK-MB (CK-2) TNP CK-MB (CK-2) Rel Index TNP Troponin I < 0.012 (0.01-0.034) ng/mL NT-Pro-B Natriuret Pep 174 H (<125) pg/mL Total Protein (6.3-8.2) g/dL Albumin (3.5-5.0) g/dL Globulin (1.7-4.1) g/dL Albumin/Globulin Ratio (1.0-2.8) Lipase (23-300) U/L Procalcitonin (<0.5) ng/mL Urine Dip Bedside Urine Glucose 250 mg/dl Bedside Urine Bilirubin - Negative Bedside Urine Ketone ++ 40 Urine Specific [place] 1.020 Bedside Urine Occult Blood - Negative Bedside Urine pH 6.5 Bedside Urine Protein - Negative Bedside Urine Urobilinogen - Negative Bedside Urine Nitrite - Negative Bedside Urine Leukocytes - Negative Esterase Imaging Data CT scan - chest: Radiologist's Impression: [address] [id number] Scan ReportSigned Patient: Tanner Hauser HMR#: [id number]: [id number]:[id number]/Sex: 69 / MDate of Service: 02/24/20Loc: EDAccession Number: [id number] Procedure: CT angio chest PE protocol Ordering Provider: Guzman Tamez PROCEDURE: CT ANGIO CHEST PE PROTOCOL INDICATIONS: elevated d dimer, tachycardia, dizziness TECHNIQUE: After the administration of intravenous contrast, 2 mm thick sections acquired from the pulmonary apices to the posterior costophrenic angles. 3-dimensional maximum intensity projection (MIP) coronal and sagittal reformats were then acquired through the thorax. For radiation dose reduction, the following was used: automated exposure control, adjustment of mA and/or kV according to patient size. COMPARISON: None. FINDINGS: Image quality: Excellent. Pulmonary arteries: Pulmonary arteries are normal in size, and demonstrate no intraluminal filling defects to suggest central pulmonary embolism. Lungs and pleura: Lungs are clear except at the right lung base where what appears to be scarring or atelectasis is present peripherally. This is mild in severity.. No pleural effusions or pneumothorax. Central and peripheral airways are patent. Mediastinum: Heart size is normal, without pericardial effusion. No mediastinal or hilar adenopathy. Thoracic aorta is normal in caliber and enhancement. Esophagus is normal in caliber, without hiatal hernia. Bones and chest wall: No suspicious bony lesions. Ribs and thoracic spine appear intact throughout. Thyroid gland appears normal where well seen . No axillary or supraclavicular adenopathy. Abdomen: Visualized upper abdominal solid organs appear normal in the early arterial phase of enhancement. IMPRESSION: Mild lung base scarring or atelectasis right lower lobe. No pneumonia suspected. No pulmonary embolus is seen. No sign of aortic dissection or aneurysm. Dictated by: Cruz Elias M.D. on 02/24/2020 at 16:53 Approved by: Cruz Elias M.D. on 02/24/2020 at 16:55 US - DVT: Radiologist's Impression: [address] [id number] ReportSigned Patient: Tanner Hauser R#: [id number]: [id number]:[id number]/Sex: 69 / MDate of Service: 02/24/20Loc: EDAccession Number: [id number] Procedure: US perip venous up extrem lt Ordering Provider: Guzman Tamez PROCEDURE: US PERIP VENOUS UP EXTREM LT INDICATIONS: pain, swelling, had an IV start on affected wrist TECHNIQUE: Real-time imaging, as well as color and pulse Doppler interrogation, was performed of the left upper extremity deep veins from the inferior neck to the antecubital fossa. COMPARISON: None. FINDINGS: The internal jugular vein, visualized portions of the subclavian vein, axillary, and brachial veins are free of intraluminal thrombus. Where physically possible, the veins are normally compressible. Color and pulse Doppler demonstrate normal intraluminal flow, with expected phasicity and pulsatility. Additional scanning of the cephalic and basilic veins of the superficial system demonstrate normal compressibility, without thrombus. IMPRESSION: No DVT was found left upper extremity. Dictated by: Cruz Elias M.D. on 02/24/2020 at 16:47 Approved by: rCuz Elias M.D. on 02/24/2020 at 16:53 Chest x-ray: Radiologist's Impression: Tanner Hauser 69 M [address] [id number] ReportSigned Patient: Tanner Hauser [facility]#: [id number]: 1950cct:[id number]/Sex: 69 / MDate of Service: 02/24/20Loc: EDAccession Number: [id number] Procedure: XR chest 1V Ordering Provider: Marcela Vergara D.O. PROCEDURE: XR CHEST 1V INDICATIONS: suspected sepsis TECHNIQUE: One view of the chest was acquired. COMPARISON: [facility], CR, XR CHEST 1V, 02/18/2020, 16:17[facility] [facility], XR CHEST 2V, 03/24/2019, 10:07. FINDINGS: Surgical changes and devices: Prior anterior cervical fusion plate. Lungs and pleura: Lungs are clear. No pleural effusions or pneumothorax. Mediastinum: Mediastinal contours appear normal. Heart size is normal. Bones and chest wall: No suspicious bony lesions. Overlying soft tissues appear unremarkable. IMPRESSION: Reduced inspiratory volume, no definite acute disease. Prior cervical fusion plate noted low cervical spine. Dictated by: Cruz Elias M.D. on 02/24/2020 at 14:19 Approved by: Cruz Elias M.D. on 02/24/2020 at 14:26 ECG Data Attestation: I personally reviewed and interpreted this ECG as follows: Prior ECG tracings: available for review Interpretation: Sinus tachycardia rated 110. NOrmal axis. MA interval 168, QRS duration 90, QT/QTC 330/446. No acute ST changes. MDM Narrative Medical decision making narrative: This is a 69-year-old male who presents to ED with left hand swelling, pain, warmth since last night. Appreciated tachycardia rate at 110's and o2 saturation of 90-92% on 3L NC and he is not an O2 dependent. Temperature was 99.7 F during triage. Lung exam was unremarkable. Patient has complicated medical history of COPD, splenectomy secondary to trauma. Patient discharged to home 3 days ago with UGI bleed and was evaluated in emergency room on 02/02/20 with left humerus fracture which was occurred in [facility] when he was visiting. Patient reports he had IV insertion while in hospital on left wrist/hand. Patient reports GI bleed and discomfort have improved significantly. Significant leukocytosis of 19.0 with elevated neutrophil of 81.1%. Normal lactate of 1.1 and procalcitonin <0.05. Improved H&H of 11.1/34.2 compare to when patient was hospitalized and during hospitalization. Patient H&H range from 6.7/21.0 to10.0/30.9. Increased platelet counts of 677. Normal coag test but elevated D-dimer of 1037. Slight hypo natremia of 134 with chloride in [place] of 93. Elevated CO2 of 37. Normal kidney function test and liver function test. Cardiac enzymes were negative with unremarkable proBNP. EKG sinus tachycardia rate at 1:[address] changes. Given patient's tachycardia, low O2 sat, elevated D dimer and recent hospitalization and humerus fracture, concern for DVT and pulmonary embolism and obtained ultrasound of upper extremity and chest CT for PE obtained. Ultrasound was negative for DVT. CT of chest does not find pulmonary embolism. lungs are clear except the right lung base shows scarring or atelectasis peripherally which is in mild severity. No pneumonia appreciated. Given elevated white count with physical finding consistent with cellulitis, patient received vancomycin 1.5 g and IV hydration. Patient received several doses of morphine 4 mg IV for pain management which he responded well. Doctor Jessica who is covering for Dr. Vargas (PCP) kindly accepted patient's care for IV vancomycin therapy and evaluation with blood test and physical exam. Discussed this plan with patient and significant other and they both verbalized understanding and agreement with the treatment plan. Repeat COVID test Negative today. <Marcela Vergara, DO - Last Filed: 02/25/20 11:49> Lab Data Labs: Lab Results 02/24/20 02/24/20 02/24/20 Range/Units 13:40 13:40 13:40 WBC 19.0 H (4.5-11.0) X10^3/uL RBC 3.70 L (4.5-5.9) X10^6/uL Hgb 11.1 L (13.5-17.5) g/dL Hct 34.2 L (41-53) % MCV 92.5 (80-100) fL MCH 29.9 (26-34) PG MCHC 32.3 (30-36) % RDW 15.7 H (11.6-14.8) % Plt Count 677 H (150-400) X10^3/uL Neut % (Auto) 81.1 H (50-75) % Lymph % (Auto) 7.1 L (25-40) % [place] % (Auto) 10.5 (3-14) % Eos % (Auto) 0.7 L (2-4) % Baso % (Auto) 0.6 (0-2) % Neut # (Auto) 40726 H (6895-2726) /uL Lymph # (Auto) 1400 (4899-8361) /uL [place] # (Auto) 2000 H (0-900) /uL Eos # (Auto) 100 (0-450) /uL Baso # (Auto) 100 (0-100) /uL PT 12.7 (10.1-12.7) SECONDS INR 1.1 (0.9-1.3) APTT 30 (26.4-36.2) SECONDS D-Dimer (<230) ng/mL Sodium (137-145) mmol/L Potassium (3.4-5.1) mmol/L Chloride (98-107) mmol/L Carbon Dioxide (22-32) mmol/L BUN (9-20) mg/dL Creatinine (0.66-1.25) mg/dL Estimated GFR (>60) mL/min BUN/Creatinine Ratio (6-22) Glucose (80-110) mg/dL Lactate (0.7-2.1) mmol/L Calcium (8.4-10.2) mg/dL Total Bilirubin (0.2-1.3) mg/dL AST (17-59) IU/L ALT (<50) IU/L Alkaline Phosphatase (38-126) U/L Total Creatine Kinase (55-170) U/L CK-MB (CK-2) CK-MB (CK-2) Rel Index Troponin I (0.01-0.034) ng/mL NT-Pro-B Natriuret Pep (<125) pg/mL Total Protein (6.3-8.2) g/dL Albumin (3.5-5.0) g/dL Globulin (1.7-4.1) g/dL Albumin/Globulin Ratio (1.0-2.8) Lipase (23-300) U/L Procalcitonin < 0.05 (<0.5) ng/mL 02/24/20 02/24/20 02/24/20 Range/Units 13:40 13:40 13:40 WBC (4.5-11.0) X10^3/uL RBC (4.5-5.9) X10^6/uL Hgb (13.5-17.5) g/dL Hct (41-53) % MCV (80-100) fL MCH (26-34) PG MCHC (30-36) % RDW (11.6-14.8) % Plt Count (150-400) X10^3/uL Neut % (Auto) (50-75) % Lymph % (Auto) (25-40) % [place] % (Auto) (3-14) % Eos % (Auto) (2-4) % Baso % (Auto) (0-2) % Neut # (Auto) (2580-4355) /uL Lymph # (Auto) (1641-3380) /uL [place] # (Auto) (0-900) /uL Eos # (Auto) (0-450) /uL Baso # (Auto) (0-100) /uL PT (10.1-12.7) SECONDS INR (0.9-1.3) APTT (26.4-36.2) SECONDS D-Dimer 1037 H (<230) ng/mL Sodium 134 L (137-145) mmol/L Potassium 3.7 (3.4-5.1) mmol/L Chloride 93 L (98-107) mmol/L Carbon Dioxide 37 H (22-32) mmol/L BUN 12 (9-20) mg/dL Creatinine 0.70 (0.66-1.25) mg/dL Estimated GFR > 60.0 (>60) mL/min BUN/Creatinine Ratio 17.1 (6-22) Glucose 156 H (80-110) mg/dL Lactate 1.1 (0.7-2.1) mmol/L Calcium 9.0 (8.4-10.2) mg/dL Total Bilirubin 0.7 (0.2-1.3) mg/dL AST 27 (17-59) IU/L ALT 27 (<50) IU/L Alkaline Phosphatase 119 (38-126) U/L Total Creatine Kinase (55-170) U/L CK-MB (CK-2) CK-MB (CK-2) Rel Index Troponin I (0.01-0.034) ng/mL NT-Pro-B Natriuret Pep (<125) pg/mL Total Protein 7.0 (6.3-8.2) g/dL Albumin 3.7 (3.5-5.0) g/dL Globulin 3.3 (1.7-4.1) g/dL Albumin/Globulin Ratio 1.1 (1.0-2.8) Lipase 25 D (23-300) U/L Procalcitonin (<0.5) ng/mL 02/24/20 Range/Units 13:40 WBC (4.5-11.0) X10^3/uL RBC (4.5-5.9) X10^6/uL Hgb (13.5-17.5) g/dL Hct (41-53) % MCV (80-100) fL MCH (26-34) PG MCHC (30-36) % RDW (11.6-14.8) % Plt Count (150-400) X10^3/uL Neut % (Auto) (50-75) % Lymph % (Auto) (25-40) % [place] % (Auto) (3-14) % Eos % (Auto) (2-4) % Baso % (Auto) (0-2) % Neut # (Auto) (2930-2441) /uL Lymph # (Auto) (3883-4654) /uL [place] # (Auto) (0-900) /uL Eos # (Auto) (0-450) /uL Baso # (Auto) (0-100) /uL PT (10.1-12.7) SECONDS INR (0.9-1.3) APTT (26.4-36.2) SECONDS D-Dimer (<230) ng/mL Sodium (137-145) mmol/L Potassium (3.4-5.1) mmol/L Chloride (98-107) mmol/L Carbon Dioxide (22-32) mmol/L BUN (9-20) mg/dL Creatinine (0.66-1.25) mg/dL Estimated GFR (>60) mL/min BUN/Creatinine Ratio (6-22) Glucose (80-110) mg/dL Lactate (0.7-2.1) mmol/L Calcium (8.4-10.2) mg/dL Total Bilirubin (0.2-1.3) mg/dL AST (17-59) IU/L ALT (<50) IU/L Alkaline Phosphatase (38-126) U/L Total Creatine Kinase 34 L (55-170) U/L CK-MB (CK-2) TNP CK-MB (CK-2) Rel Index TNP Troponin I < 0.012 (0.01-0.034) ng/mL NT-Pro-B Natriuret Pep 174 H (<125) pg/mL Total Protein (6.3-8.2) g/dL Albumin (3.5-5.0) g/dL Globulin (1.7-4.1) g/dL Albumin/Globulin Ratio (1.0-2.8) Lipase (23-300) U/L Procalcitonin (<0.5) ng/mL Urine Dip Bedside Urine Glucose 250 mg/dl Bedside Urine Bilirubin - Negative Bedside Urine Ketone ++ 40 Urine Specific [place] 1.020 Bedside Urine Occult Blood - Negative Bedside Urine pH 6.5 Bedside Urine Protein - Negative Bedside Urine Urobilinogen - Negative Bedside Urine Nitrite - Negative Bedside Urine Leukocytes - Negative Esterase Discharge Plan Departure Patient Disposition: Admitted as Observation Clinical Impression: Cellulitis Qualifiers: Site of cellulitis: extremity Site of cellulitis of extremity: upper extremity Laterality: left Qualified Code(s): L03.114 - Cellulitis of left upper limb Admit Date/Time: 02/24/20 17:41 Admit Provider: Camelia Lopez <Marcela Vergara DO - Last Filed: 02/25/20 11:49> Cosign ED Attending Cosignature Attestation: I was immediately available in the department for consultation. This documentation has been reviewed and I agree with assessment and plan. Supervised by Marcela Vergara DO
--- NOTE | 2020-02-24 16:25 | DI.CT.S_ITS ---
PROCEDURE: CT ANGIO CHEST PE PROTOCOL INDICATIONS: elevated d dimer, tachycardia, dizziness TECHNIQUE: After the administration of intravenous contrast, 2 mm thick sections acquired from the pulmonary apices to the posterior costophrenic angles. 3-dimensional maximum intensity projection (MIP) coronal and sagittal reformats were then acquired through the thorax. For radiation dose reduction, the following was used: automated exposure control, adjustment of mA and/or kV according to patient size. COMPARISON: None. FINDINGS: Image quality: Excellent. Pulmonary arteries: Pulmonary arteries are normal in size, and demonstrate no intraluminal filling defects to suggest central pulmonary embolism. Lungs and pleura: Lungs are clear except at the right lung base where what appears to be scarring or atelectasis is present peripherally. This is mild in severity.. No pleural effusions or pneumothorax. Central and peripheral airways are patent. Mediastinum: Heart size is normal, without pericardial effusion. No mediastinal or hilar adenopathy. Thoracic aorta is normal in caliber and enhancement. Esophagus is normal in caliber, without hiatal hernia. Bones and chest wall: No suspicious bony lesions. Ribs and thoracic spine appear intact throughout. Thyroid gland appears normal where well seen . No axillary or supraclavicular adenopathy. Abdomen: Visualized upper abdominal solid organs appear normal in the early arterial phase of enhancement. IMPRESSION: Mild lung base scarring or atelectasis right lower lobe. No pneumonia suspected. No pulmonary embolus is seen. No sign of aortic dissection or aneurysm. Dictated by: Cruz Elias M.D. on 02/24/2020 at 16:53 Approved by: Cruz Elias M.D. on 02/24/2020 at 16:55
[2020-02-24 16:28] VITALS: BP 130/86; PULSE 97; RESP 18; O2SAT 99
[2020-02-24 16:37] LABS: Creatine Kinase 34 U/L (55-170)
[2020-02-24] MEDS: VANCOMYCIN 1,500 MG/300 ML PIGGYBACK 200 MG IV (16:46)
[2020-02-24 16:50] LABS: NT-proBNP (BNP-Adult 18+) 174 pg/mL (<125); Troponin I < 0.012 ng/mL (0.01-0.034)
--- NOTE | 2020-02-24 18:17 | PC.NURSE ---
pt up to restroom for bm. steady gait.
[2020-02-24 18:20] VITALS: BMI 40.7
[2020-02-24] MEDS: SODIUM CHLORIDE 0.9% 1,000 ML 125 ML IV (18:20)
[2020-02-24 19:28] LABS: COVID19 -Nasal RAPID Negative (Negative)
[2020-02-24] MEDS: MORPHINE 2 MG/ML INJ 4 MG IV (20:17)
[2020-02-24 20:31] VITALS: RESP 18; O2SAT 96
[2020-02-24 20:48] VITALS: PULSE 105; RESP 18; O2SAT 96
[2020-02-24] MEDS: ALBUTEROL/IPRATROPIUM MDI 1 PUFF INH (20:48)
[2020-02-24] MEDS: PANTOPRAZOLE 40 MG TABLET PO (20:59)
[2020-02-24 21:45] VITALS: BP 142/79; PULSE 95; RESP 15; TEMP 37.6; O2SAT 97
[2020-02-24 23:50] VITALS: BP 125/72; PULSE 95; RESP 20; TEMP 36.8; O2SAT 91
[2020-02-25] VITALS (12 sets, daily range): BP systolic 108–139; BP diastolic 56–85; PULSE 77–97; RESP 16–20; TEMP 36.1–37.3; O2SAT 86–97
[2020-02-25] MEDS: MORPHINE 2 MG/ML INJ 4 MG IV ×2 (00:54→05:07)
--- NOTE | 2020-02-25 01:56 | PC.NURSE ---
Patient seen at 2345 and assessed. Is alert and oriented. Breath sounds diminished throughout. Oxygen at 2.5L/min with sat of 91% but currently is asleep with sat of 97%. HRR; telemetry reading was SR. Denies nausea. BT present and abdomen is soft. Voiding per urinal; denies dysuria, frequency or urgency. Able to move himself in bed. Up to stand at side of bed and has good strength; denies weakness or unsteadiness. Left UE is warm and edematous and has decreased ROM/pain due to recent humeral fx. Skin in left axilla noted to be red, moist and odorous; ABD pad placed to absorb moisture. At 0054 was medicated with scheduled Morphine for complaint of 8/10 sharp electric pain. Fall risk score is high and bed alarm is activated. SCD's are not ordered.
[2020-02-25] MEDS: SODIUM CHLORIDE 0.9% 1,000 ML 125 ML IV (02:47)
[2020-02-25] MEDS: VANCOMYCIN 1,250 MG/250 ML PIGGYBACK 250 MG IV (05:08)
[2020-02-25] MEDS: ALBUTEROL/IPRATROPIUM MDI 1 PUFF INH ×2 (07:49→20:17)
--- NOTE | 2020-02-25 08:22 | PM.HP.1 ---
History of Present Illness History of Present Illness Date Patient Seen: 02/25/20 Time Patient Seen: 08:05 Chief complaint: LEFT ARM SWELLING Narrative: A 69-year-old male who presented to the [facility] Emergency Department day of admission with significant pain and swelling of his left arm. This is been going on for maybe 12-18 hours prior. Denies any fever chills. No syncope near-syncope. Did not really note any redness of his arm. Denies any respiratory symptoms at all. Was apprised to learn that his oxygen level is somewhat low at times. Patient been admitted to [facility] with an upper GI bleed and discharged on the 20 of February. He is found to have multiple ulcers and was felt to be stable. He did have an IV in the left arm during his hospitalization. In addition patient had fallen prior to that hospitalization fracturing his proximal humerus and is currently slowly recovering from that Workup in the ER was essentially unremarkable. Patient had leukocytosis (although this was present during his previous hospitalization as well, and has been present chronically with no good etiology identified), no evidence of upper extremity DVT and CT angiography of the chest essentially unremarkable including no evidence of pulmonary emboli and no other intrapulmonary abnormality such as infiltrate interstitial change consistent with congestive heart failure etcetera. His BNP was essentially normal. COVID was negative. He was admitted with presumed cellulitis given the warm swollen red left upper extremity placed on IV antibiotics. Patient History Medical History (Updated 02/25/20 @ 08:26 by Blas Vargas MD) Acquired insufficiency of aortic valve (10/08/15) Chronic obstructive pulmonary disease (01/19/11) Cobalamin deficiency CTS (carpal tunnel syndrome) Duodenal ulcer Eczema Essential hypertension Gastric ulcer History of malignant neoplasm of prostate Hypothyroidism (08/21/14) Idiopathic peripheral neuropathy Leukocytosis (01/19/11) Low back pain of over 3 months duration (11/15/16) Obesity (01/19/11) Prostate cancer (2010) Thrombocytosis (01/19/11) Weakness of right lower extremity (11/15/16) Surgical History History of spinal fusion (2012) History of splenectomy (1975) Status post wrist surgery (2011) Family & Social History Family History Brother Thyroid cancer Mother Breast cancer Father No problems noted. Social History: household members none Prior Living Arrangements House lives independently Yes caregiver/support person No Safety & Behavioral: Feels Safe in Current Yes Environment Suicidal Ideation Description None Suicide Plan Description No Plan Tobacco & Substance use: Smoking Status Former smoker alcohol intake former alcohol intake frequency holiday/special occasion Substance Use Type does not use Meds Home Medications and Allergies Home Medications Medication Instructions Recorded Confirmed Type cyanocobalamin (vitamin B-12) 1,000 mcg PO QDAY #0 04/04/17 02/24/20 History diphenhydramine HCl 25 mg capsule 25 mg PO Q4-6H PRN 09/14/17 02/24/20 History levothyroxine 150 mcg tablet See Rx Instructions .ROUTE 05/12/19 02/24/20 Rx .COMPLEX #90 tab chlorthalidone 25 mg tablet 25 mg PO QDAY #90 tab 08/22/19 02/24/20 Rx duloxetine 30 mg capsule,delayed 30 mg PO DAILY #90 cap 08/22/19 02/24/20 Rx release albuterol sulfate 90 mcg/actuation 2 puff INHALATION Q4HP PRN #2 10/06/19 02/24/20 Rx aerosol inhaler device metoprolol succinate 50 mg capsule 50 mg PO DAILY #90 each 12/09/19 02/24/20 Rx sprinkle, ext. release 24 hr ciclesonide 160 mcg/actuation 2 puff INHALATION BID #6.1 gram 01/14/20 02/24/20 Rx aerosol inhaler Combivent Respimat 1 puff INHALATION BID 02/19/20 02/24/20 History fluticasone propionate 2 spray NASAL BEDTIME PRN 02/19/20 02/24/20 History ferrous sulfate 325 mg PO DAILY #90 tab 02/20/20 02/24/20 Rx omeprazole 40 mg PO BID #60 cap 02/20/20 02/24/20 Rx oxycodone 5 - 10 mg PO QID PRN #30 tab 02/20/20 02/24/20 Rx Allergies Allergy/AdvReac Type Severity Reaction Status Date / Time animal dander [ANIMAL DANDER] Allergy Unknown Verified 02/24/20 13:21 crab [CRAB] Allergy Unknown Verified 02/24/20 13:21 pollen extracts Allergy Unknown Verified 02/24/20 13:21 [POLLEN EXTRACTS] Review of Systems Constitutional Constitutional: Denies excessive sweating, Denies fever(s), Denies headache(s), Denies weakness, Denies weight gain and Denies weight loss Eyes Eyes: Denies change in vision, Denies itchy eyes, Denies loss of vision and Denies other visual disturbances ENT Ears, Nose, Mouth, and Throat: No change in voice, No dysphagia, No dizziness, No otalgia, No headache(s), No hoarseness, No lip swelling, No neck pain, No sore throat, No throat swelling and No tongue swelling Cardiovascular Cardiovascular: Denies chest pain, Denies syncope, Denies rapid heart rate, Denies irregular heart rhythm, Denies palpitations, Denies dyspnea, Denies dyspnea on exertion and Denies slow heart rate Respiratory Respiratory: Denies chest congestion, Denies cough, Denies hemoptysis, Denies dyspnea, Denies dyspnea on exertion, Denies stridor and Denies wheezing Gastrointestinal Gastrointestinal: Denies abdominal pain, Denies bloating, Denies change in bowel habits, Denies change in stool character, Denies dysphagia, Denies nausea, Denies vomiting and Denies hematemesis Genitourinary Genitourinary: Denies hematuria, Denies difficulty urinating and Denies urinary frequency Musculoskeletal Musculoskeletal: Denies abnormal gait, Denies myalgias and Denies neck pain Integumentary/Breasts Skin/Breast: Denies bleeding lesions, Denies change in pigmentation, Denies changing lesions, Denies new lesions, Denies rash, Denies skin swelling, Denies sores and Denies jaundice Neurologic Neurologic: Denies abnormal speech, Denies abnormal gait, Denies behavioral changes, Denies confusion, Denies dizziness, Denies syncope, Denies headache(s), Denies loss of vision, Denies memory loss, Denies seizure-like activity, Denies paresthesias and Denies weakness Psychiatric Psychiatric: Denies behavioral changes, Denies change in appetite, Denies confusion, Denies difficulty concentrating, Denies auditory hallucinations, Denies memory loss, Denies mood swings and Denies suicidal ideation Endocrine Endocrine: Denies excessive sweating, Denies flushing, Denies polyuria and Denies palpitations Hematologic/Lymphatic Hematologic/Lymphatic: Denies easy bleeding, Denies easy bruising and Denies lymphadenopathy Allergic/Immunologic Allergic/Immunologic: Denies urticaria, Denies itchy eyes, Denies lip swelling, Denies throat swelling, Denies tongue swelling and Denies wheezing Exam Vital Signs (past 8 hours): - 02/25/20 01:56 02/25/20 04:30 02/25/20 06:04 Temperature 98.0 F Pulse Rate 90 Respiratory Rate 18 Blood Pressure 139/79 Pulse Oximetry 97 91 95 02/25/20 07:49 Temperature Pulse Rate 86 Respiratory Rate 18 Blood Pressure Pulse Oximetry 95 Oxygen Delivery Method Nasal Cannula Oxygen Flow Rate 2 Narrative Exam Narrative: Middle-aged male in no obvious distress sitting in his hospital bed. Left arm is clearly swollen and uncomfortable however HEENT-unremarkable Lungs-diminished breath sounds however no wheezes or crackles in very similar to previous exam during previous hospitalization Heart-regular rate and rhythm Abdomen-benign Extremities-significant swelling entire left upper extremity with increased warmth but without erythema. Skin intact on left upper extremity, right upper extremity and bilateral lower extremities without significant abnormality Objective Labs Result Diagrams: 02/24/20 13:40 02/24/20 13:40 Labs: Laboratory Results - last 24 hr 02/24/20 02/24/20 02/24/20 13:40 13:40 13:40 WBC 19.0 H RBC 3.70 L Hgb 11.1 L Hct 34.2 L MCV 92.5 MCH 29.9 MCHC 32.3 RDW 15.7 H Plt Count 677 H Neut % (Auto) 81.1 H Lymph % (Auto) 7.1 L [place] % (Auto) 10.5 Eos % (Auto) 0.7 L Baso % (Auto) 0.6 Neut # (Auto) 02959 H Lymph # (Auto) 1400 [place] # (Auto) 2000 H Eos # (Auto) 100 Baso # (Auto) 100 PT 12.7 INR 1.1 APTT 30 D-Dimer Sodium Potassium Chloride Carbon Dioxide BUN Creatinine Estimated GFR BUN/Creatinine Ratio Glucose Lactate Calcium Total Bilirubin AST ALT Alkaline Phosphatase Total Creatine Kinase CK-MB (CK-2) CK-MB (CK-2) Rel Index Troponin I NT-Pro-B Natriuret Pep Total Protein Albumin Globulin Albumin/Globulin Ratio Lipase Procalcitonin < 0.05 COVID-19 PCR 02/24/20 02/24/20 02/24/20 13:40 13:40 13:40 WBC RBC Hgb Hct MCV MCH MCHC RDW Plt Count Neut % (Auto) Lymph % (Auto) [place] % (Auto) Eos % (Auto) Baso % (Auto) Neut # (Auto) Lymph # (Auto) [place] # (Auto) Eos # (Auto) Baso # (Auto) PT INR APTT D-Dimer 1037 H Sodium 134 L Potassium 3.7 Chloride 93 L Carbon Dioxide 37 H BUN 12 Creatinine 0.70 Estimated GFR > 60.0 BUN/Creatinine Ratio 17.1 Glucose 156 H Lactate 1.1 Calcium 9.0 Total Bilirubin 0.7 AST 27 ALT 27 Alkaline Phosphatase 119 Total Creatine Kinase CK-MB (CK-2) CK-MB (CK-2) Rel Index Troponin I NT-Pro-B Natriuret Pep Total Protein 7.0 Albumin 3.7 Globulin 3.3 Albumin/Globulin Ratio 1.1 Lipase 25 D Procalcitonin COVID-19 PCR 02/24/20 02/24/20 13:40 19:00 WBC RBC Hgb Hct MCV MCH MCHC RDW Plt Count Neut % (Auto) Lymph % (Auto) [place] % (Auto) Eos % (Auto) Baso % (Auto) Neut # (Auto) Lymph # (Auto) [place] # (Auto) Eos # (Auto) Baso # (Auto) PT INR APTT D-Dimer Sodium Potassium Chloride Carbon Dioxide BUN Creatinine Estimated GFR BUN/Creatinine Ratio Glucose Lactate Calcium Total Bilirubin AST ALT Alkaline Phosphatase Total Creatine Kinase 34 L CK-MB (CK-2) TNP CK-MB (CK-2) Rel Index TNP Troponin I < 0.012 NT-Pro-B Natriuret Pep 174 H Total Protein Albumin Globulin Albumin/Globulin Ratio Lipase Procalcitonin COVID-19 PCR Negative Assessment & Plan Assessment & Plan narrative: 1. Presumed cellulitis left upper extremity-I presume this secondary to IV although I do not see exact source of infection. He also has limited motion of this arm because of the humeral fracture perhaps that is a contributing factor. No evidence of clot or other contributing factor fortunately. At this point he needs continue parental antibiotics. I am not convinced he needs vancomycin, would switch him to a 1st generation cephalosporin. Unfortunately no cultures were obtained in the emergency department so seems unlikely were going to have specific organism identified to tailor therapy. Will go on clinical features. Unfortunately his white blood cell count will not be useful feature given his history. 2. Recent upper GI bleed with gastric and duodenal ulcer-blood counts are certainly stable. No evidence of active bleeding no evidence of recurrent bleeding. Continue on proton pump inhibitor. Still waiting pathology from his endoscopy regarding possible H pylori. 3. Hypoxia-uncertain as to why patient be hypoxic. Does have chronic lung disease. Will attempt to wean off oxygen today. Fortunately his CT with angiography of the chest was were really quite unremarkable BNP is normal. I would be concerned about potential heart failure but both of those study should show some evidence consistent with heart failure if that is indeed present. 4. Patient's other medical problems are stable. Continue his usual medications without change. 5. Code status-patient should be a full code 6. VTE prophylaxis-SCDs alone. Given his recent GI bleed not a candidate for anticoagulation at this point in my opinion.
[2020-02-25] MEDS: PANTOPRAZOLE 40 MG TABLET PO ×2 (09:18→20:28)
[2020-02-25] MEDS: CEFAZOLIN 2 GM/100 ML FROZ.PIGGY IV ×2 (09:18→16:29)
[2020-02-25] MEDS: FERROUS SULFATE 325 MG TABLET PO (09:18)
[2020-02-25] MEDS: CYANOCOBALAMIN (VITAMIN B-12) 500 MCG TABLET 1000 MCG PO (09:18)
[2020-02-25] MEDS: DULOXETINE 30 MG CAPSULE PO (09:18)
[2020-02-25] MEDS: CHLORTHALIDONE 25 MG TABLET PO (09:19)
[2020-02-25] MEDS: METOPROLOL ER 50 MG TABLET PO (09:20)
[2020-02-25] MEDS: OXYCODONE IR 5 MG TABLET PO ×3 (10:58→20:29)
[2020-02-25] MEDS: ACETAMINOPHEN 325 MG TABLET 650 MG PO (10:59)
--- NOTE | 2020-02-25 12:21 | CM.IDA ---
Initial DCP Assessment Note Patient is a 69 yo male, resident of [place]. Patient is admitted w/Presumed cellulitis left upper extremity. Patient has had 4 ED visits in the last 5 months, multiple body injuries treated in the ED (GLF x2) and two admissions, one fro GI bleed/ulcers and current admission for infection, UE. PCP: Dr Sam Hill: Flo [facility] Reviewed chart. Patient familiar to this [employer] from prior admission 02.17-02.19. Information gathered from that assessment remains accurate: Patient prefers to go by [employer]. 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 Patient's gf/partner Josi is supportive and able to assist as needed. Patient is indp and active at baseline (other than slow recovery from multiple injuries) and expects to return home upon medical DC. Patient has no children. P: DC expected to be return home w/assist from friends and family Following closely for any DC needs or concerns that may arise. EDITH Trujillo
[2020-02-25] MEDS: SODIUM CHLORIDE 0.9% FLUSH 10 ML IV (21:00)
--- NOTE | 2020-02-25 22:15 | PC.NURSE ---
placed a new abd pad in his L.armpit. sat 89% while sleeping.
[2020-02-26] VITALS (8 sets, daily range): BP systolic 108–144; BP diastolic 67–79; PULSE 76–98; RESP 16–20; TEMP 36.2–37.2; O2SAT 90–95
[2020-02-26] MEDS: CEFAZOLIN 2 GM/100 ML FROZ.PIGGY IV ×3 (00:25→17:19)
[2020-02-26] MEDS: SODIUM CHLORIDE 0.9% FLUSH 10 ML IV ×3 (00:26→17:19)
--- NOTE | 2020-02-26 02:05 | PC.NURSE ---
Addendum entered by Liudmila Adams R.N. 02/26/20 06:40: Up to sit in chair with chair alarm on. O2 removed and will continue to monitor sat with continuous oximetry. Original Note: Patient assessed at 0033. Is oriented but drowsy. At shift change found on RA with sat of 86% so placed on oxygen at 1L/min per NC with sat improving to 93%. HRR; telemetry reading was SR w/1st degree AVB. Denies nausea. BT present and is passing flatus. Denies dysuria, frequency or urgency with urination; getting up to bathroom with SBA to urinate. Is able to move himself in bed. Left UE remain edematous and still has decreased ROM. Left axilla reddened, moist with foul odor; ABD pad in place. Denies pain at present time. No SCD's ordered. Fall risk score is high as patient has fallen recently sustaining left humeral fx; bed alarm is activated.
[2020-02-26] MEDS: OXYCODONE IR 5 MG TABLET PO (03:33)
--- NOTE | 2020-02-26 07:59 | PM.PN.1 ---
Subjective Subjective Date Patient Seen: 02/26/20 Time Patient Seen: 07:59 Interval history: Patient not reporting any improvement in his symptoms. Still having pain and discomfort in the left hand and arm. Also says he is getting low bit discomfort in his right hand along the index finger and palm of his hand Has been on off oxygen. Currently off oxygen with reasonable oxygen saturation but has had an oxygen saturation as low as 86% on room air. Not dyspneic at all no other symptoms Nursing staff found an open/excoriated area in the left axilla (difficult to examine because of his fractured humerus). This may well be a source of infection Exam Vital Signs (past 8 hours): - 02/26/20 03:34 Temperature 98.2 F Pulse Rate 82 Respiratory Rate 16 Blood Pressure 134/79 Pulse Oximetry 94 Oxygen Delivery Method Nasal Cannula Oxygen Flow Rate 2 Narrative Exam Narrative: Unchanged from yesterday, left upper extremity still notably edematous with increased warmth but no erythema Objective Labs Result Diagrams: 02/24/20 13:40 02/24/20 13:40 Assessment & Plan Assessment & Plan narrative: 1. Cellulitis-continue with current IV antibiotics. May well take a couple of days to get on top of this. Plan to recheck sed rate and CBC tomorrow knowing he has a baseline leukocytosis. He has been afebrile and no other evidence of complicating factors 2. Hypoxia-no clear etiology for this other than his underlying lung disease. Continue to monitor and encourage deep breathing and perhaps increased activity 3. Hypertension-numbers have been certainly adequate no issues their Overall patient is stable if not minimally improved. Continue with current therapies as above Note: Greater than 20 minutes was spent evaluating the patient on the floor, including examining the patient, discussing clinical course with clinical and nursing staff, reviewing clinical course in the computer, preparing documentation and writing orders for continued management of care, discussing status with family as appropriate, reviewing plans for the next 24 hours with both patient/family and nursing staff as appropriate. COVID-19 COVID-19 status: Negative
[2020-02-26] MEDS: ALBUTEROL/IPRATROPIUM MDI 1 PUFF INH ×2 (09:32→20:51)
[2020-02-26] MEDS: HYDROCODONE/ACET 10/325 TABLET 1 TAB PO ×4 (09:46→21:08)
[2020-02-26] MEDS: PANTOPRAZOLE 40 MG TABLET PO ×2 (09:47→21:09)
[2020-02-26] MEDS: METOPROLOL ER 50 MG TABLET PO (09:47)
[2020-02-26] MEDS: CHLORTHALIDONE 25 MG TABLET PO (09:47)
[2020-02-26] MEDS: CYANOCOBALAMIN (VITAMIN B-12) 500 MCG TABLET 1000 MCG PO (09:47)
[2020-02-26] MEDS: FERROUS SULFATE 325 MG TABLET PO (09:47)
[2020-02-26] MEDS: DULOXETINE 30 MG CAPSULE PO (09:47)
[2020-02-26] MEDS: SODIUM CHLORIDE 0.9% 250 ML 21 ML IV (09:48)
--- NOTE | 2020-02-26 12:33 | PC.NURSE ---
Day shift- Dr. Vargas made aware at 0755 of pt's left axilla redness and moistness with abd pad tucked under axilla. No new orders. Pain management plan changed per Dr. Vargas, pt given update and PRN [place] given at 0945, pain was 8-9/10 and decreased to 7/10. Pt sitting up in chair most of shift- LUE was resting on 1 pillow, around 1230, pt was able to tolerate elevating extremity on 3 pillows total to elevate at heart level and before. Dr. Vargas also aware of pt's report of right hand/wrist pain and feeling of limited movement.
[2020-02-27] VITALS (8 sets, daily range): BP systolic 102–147; BP diastolic 51–90; PULSE 69–83; RESP 12–18; TEMP 36.2–37.6; O2SAT 88–95
[2020-02-27] MEDS: CEFAZOLIN 2 GM/100 ML FROZ.PIGGY IV ×3 (00:27→16:33)
[2020-02-27] MEDS: HYDROCODONE/ACET 10/325 TABLET 1 TAB PO ×5 (01:31→18:34)
[2020-02-27 05:54] LABS: Add Manual Diff / Slide Review NO; Basophils Absolute Auto 100 /uL (0-100); Basophils Percent Auto 0.6 % (0-2); Eosinophils Absolute Auto 200 /uL (0-450); Eosinophils Percent Auto 1.1 % (2-4); Hematocrit 29.5 % (41-53); Hemoglobin 9.5 g/dL (13.5-17.5); Lymphocytes Absolute Auto 1400 /uL (1100-4500); Lymphocytes Percent Auto 9.7 % (25-40); Mean Corpuscular HGB Conc 32.4 % (30-36); Mean Corpuscular Hemoglobin 29.6 PG (26-34); Mean Corpuscular Volume 91.4 fL (80-100); Monocytes Absolute Auto 2600 /uL (0-900); Monocytes Percent Auto 18.2 % (3-14); Neutrophils Absolute Auto 10200 /uL (1500-7000); Neutrophils Percent Auto 70.4 % (50-75); Platelet Count 713 X10^3/uL (150-400); Red Blood Cell Count 3.22 X10^6/uL (4.5-5.9); Red Cell Distribution Width 15.4 % (11.6-14.8); White Blood Cell Count 14.5 X10^3/uL (4.5-11.0)
[2020-02-27 06:26] LABS: BUN Creatinine Ratio 20.6 (6-22); Blood Urea Nitrogen 13 mg/dL (9-20); Calcium 8.6 mg/dL (8.4-10.2); Chloride 90 mmol/L (98-107); Estimated Glomerular Filt Rate > 60.0 mL/min (>60); Glucose 96 mg/dL (80-110); HEMOLYSIS < 15 (0-50); Potassium 3.2 mmol/L (3.4-5.1); Sodium 133 mmol/L (137-145)
[2020-02-27 06:36] LABS: Erythrocyte Sedimentation Rate 52 MM/HR (0-15)
[2020-02-27 07:00] LABS: Carbon Dioxide 42 mmol/L (22-32)
--- NOTE | 2020-02-27 08:17 | P.PN_ITS ---
Subjective Subjective Date Patient Seen: 02/27/20 Time Patient Seen: 08:17 Interval history: Patient's says his left hand feels notably less swollen. Able to close his hand and move his fingers much more effectively. Pain is also diminished by maybe 5/10%. However his right hand has begun to swell and is becoming somewhat uncomfortable specially with the stiffness in the fingers etcetera No other active issues. Exam Vital Signs (past 8 hours): - 02/27/20 04:00 Temperature 97.2 F L Pulse Rate 81 Respiratory Rate 16 Blood Pressure 147/90 H Pulse Oximetry 94 Oxygen Delivery Method Room Air Oxygen Flow Rate 0 Narrative Exam Narrative: Obvious swelling left upper extremity down perhaps 20 25% in left hand with reduction in size of fingers and overall swelling in the palm and dorsum of the hand. New minor swelling of fingers and hand right upper extremity. Both the right and left upper extremity somewhat warm to the touch Objective Labs Result Diagrams: 02/27/20 05:03 02/27/20 05:03 Labs: Laboratory Results - last 24 hr 02/27/20 02/27/20 05:03 05:03 WBC 14.5 H RBC 3.22 L Hgb 9.5 L Hct 29.5 L MCV 91.4 MCH 29.6 MCHC 32.4 RDW 15.4 H Plt Count 713 H Neut % (Auto) 70.4 Lymph % (Auto) 9.7 L [place] % (Auto) 18.2 H Eos % (Auto) 1.1 L Baso % (Auto) 0.6 Neut # (Auto) 48909 H Lymph # (Auto) 1400 [place] # (Auto) 2600 H Eos # (Auto) 200 Baso # (Auto) 100 ESR 52 H Sodium 133 L Potassium 3.2 L Chloride 90 L Carbon Dioxide 42 H* BUN 13 Creatinine 0.63 L Estimated GFR > 60.0 BUN/Creatinine Ratio 20.6 Glucose 96 Calcium 8.6 Assessment & Plan Assessment & Plan narrative: 1. Cellulitis-unclear to me at this point whether this is truly cellulitis specially with the progression of symptoms into the right hand. I am wondering more about a phlegm a Velvet arthritis such as pseudogout perhaps triggered by his recent hospitalization transfusion etcetera. Certainly continue with IV ant ibiotics for now. Sed rate is somewhat elevated at 52. Total white blood cell count is pretty much at baseline for patient and decreased over admission numbers. However given my concern for possible alternative diagnosis such as inflammatory arthropathy am going to start him on parental corticosteroids expecting a rather dramatic improvement if indeed that is the etiology. 2. GI-patient's pathology did return from his endoscopy last week. No evidence of malignancy or dysplasia and no evidence Helicobacter pylori. Continue with proton pump inhibitor therapy. Blood counts remained stable based on today's labs. 3. Hypokalemia-patient newly hypokalemic will replace with oral potassium and low-dose oral magnesium as well. Will add a magnesium checked to his labs this morning and plan to repeat numbers tomorrow. 4. Hypoxia-patient seems to have resolved is hypoxia. Encouraging deep b reathing with incentive spirometry. Patient clearly has more of an underlying lung disease than had been previously identified specially with his elevated CO2 levels both upon his admission labs and this morning's labs. 5. Obesity-patient's obesity is contributing as it contributes to his relative hypoxia I believe there is an element of a hypoventilation syndrome related to his obesity as well as with his left arm basically mobilize making transfer and movement about the bed personal hygiene etcetera increasingly difficult because of his size. Continue to offer her healthy choices for meals and nutritional instruction 6. Hypertension-numbers are adequately controlled no changes If patient is dramatically better after corticosteroids might well be able to be discharged home tomorrow. If however not improving may need to step back re- evaluate perhaps re-evaluate for possible thromboembolism DVT of the upper extremity with a new right-sided swelling etcetera. However this seems quite remote given the initial workup that was performed upon admission. Note: Greater than 20 minutes was spent evaluating the patient on the floor, including examining the patient, discussing clinical course with clinical and nursing staff, reviewing clinical course in the computer, preparing do cumentation and writing orders for continued management of care, discussing status with family as appropriate, reviewing plans for the next 24 hours with both patient/family and nursing staff as appropriate.
[2020-02-27] MEDS: methylPREDNISolone 125 MG/2 ML VIAL 60 MG IV (08:29)
[2020-02-27] MEDS: METOPROLOL ER 50 MG TABLET PO (08:30)
[2020-02-27] MEDS: CYANOCOBALAMIN (VITAMIN B-12) 500 MCG TABLET 1000 MCG PO (08:30)
[2020-02-27] MEDS: POTASSIUM CHLORIDE 20 MEQ TAB PO ×2 (08:30→16:32)
[2020-02-27] MEDS: MAGNESIUM OXIDE 400 MG TABLET PO (08:30)
[2020-02-27] MEDS: CHLORTHALIDONE 25 MG TABLET PO (08:30)
[2020-02-27] MEDS: FERROUS SULFATE 325 MG TABLET PO (08:30)
[2020-02-27] MEDS: DULOXETINE 30 MG CAPSULE PO (08:30)
[2020-02-27] MEDS: PANTOPRAZOLE 40 MG TABLET PO ×2 (08:30→21:28)
[2020-02-27] MEDS: SODIUM CHLORIDE 0.9% FLUSH 10 ML IV ×3 (10:16→21:29)
[2020-02-27 10:48] LABS: Magnesium 1.6 mg/dL (1.6-2.3)
--- NOTE | 2020-02-27 12:53 | CM.DPNOTE ---
Addendum entered by EDITH Trujillo 02/28/20 14:03: DC home 02.28.20 after significant improvement of swelling and stiffness after administration of steroids yesterday. Home w/no needs from this [employer]; close outpatient f/u recommended. DENIZ Original Note: DCP Cont Reviewed chart. Patient still w/symptoms that are not improving and Dr Vargas now suspects possible alternative diagnosis such as inflammatory arthropathy patient started on corticosteroids. Medical POC continues to unfold, PT/OT might be helpful closer to [place]. It is expected that patient will return home w/close outpatient f/u when medically cleared to do so. DENIZ
[2020-02-27] MEDS: ALBUTEROL/IPRATROPIUM MDI 1 PUFF INH ×2 (13:35→21:28)
[2020-02-27] MEDS: MAGNESIUM HYDROXIDE 30 ML UDC PO (18:35)
[2020-02-27] MEDS: SENNOSIDES 8.6 MG TABLET PO (21:28)
--- NOTE | 2020-02-27 22:27 | PC.NURSE ---
Pt presented with swelling in L arm greater than R arm, limited ROM grasp both, able to flex both. Pain in L arm shooting from hand to wrist, tolerable with medication. Intermittent IV abx. Pt reports craving salt, regular diet. Not on tele. ABD pad in L axilla, no sling. Voids well. Agreeable to interventions. No BM, able to pass gas.
[2020-02-28] MEDS: CEFAZOLIN 2 GM/100 ML FROZ.PIGGY IV ×2 (00:51→08:49)
[2020-02-28] MEDS: SODIUM CHLORIDE 0.9% FLUSH 10 ML IV ×2 (00:52→08:11)
[2020-02-28] MEDS: HYDROCODONE/ACET 10/325 TABLET 1 TAB PO ×4 (00:56→13:57)
[2020-02-28 05:56] LABS: BUN Creatinine Ratio 33.9 (6-22); Blood Urea Nitrogen 21 mg/dL (9-20); Calcium 8.5 mg/dL (8.4-10.2); Chloride 95 mmol/L (98-107); Estimated Glomerular Filt Rate > 60.0 mL/min (>60); Glucose 134 mg/dL (80-110); HEMOLYSIS < 15 (0-50); Sodium 135 mmol/L (137-145)
[2020-02-28 06:07] VITALS: BP 105/60; PULSE 68; RESP 16; TEMP 36.8; O2SAT 93
[2020-02-28 06:17] LABS: Erythrocyte Sedimentation Rate 64 MM/HR (0-15)
[2020-02-28 06:24] LABS: Carbon Dioxide 40 mmol/L (22-32)
[2020-02-28] MEDS: ALBUTEROL/IPRATROPIUM MDI 1 PUFF INH (07:52)
[2020-02-28 07:54] VITALS: PULSE 67; RESP 16; O2SAT 93
[2020-02-28 07:55] VITALS: BP 124/77; PULSE 67; RESP 18; TEMP 37; O2SAT 92
[2020-02-28] MEDS: METOPROLOL ER 50 MG TABLET PO (08:08)
[2020-02-28] MEDS: CHLORTHALIDONE 25 MG TABLET PO (08:08)
[2020-02-28] MEDS: FERROUS SULFATE 325 MG TABLET PO (08:08)
[2020-02-28] MEDS: PANTOPRAZOLE 40 MG TABLET PO (08:08)
[2020-02-28] MEDS: CYANOCOBALAMIN (VITAMIN B-12) 500 MCG TABLET 1000 MCG PO (08:08)
[2020-02-28] MEDS: POTASSIUM CHLORIDE 20 MEQ TAB PO (08:08)
[2020-02-28] MEDS: methylPREDNISolone 125 MG/2 ML VIAL 60 MG IV (08:09)
[2020-02-28] MEDS: DULOXETINE 30 MG CAPSULE PO (08:09)
[2020-02-28] MEDS: MAGNESIUM OXIDE 400 MG TABLET PO (08:54)
[2020-02-28 11:31] VITALS: BP 103/46; PULSE 68; RESP 16; TEMP 36.2; O2SAT 93
--- NOTE | 2020-02-28 13:02 | PM.DS.1 ---
History of Present Illness History of Present Illness Chief complaint: LEFT ARM SWELLING Discharge Providers Provider Date of admission: 02/24/20 17:41 Discharge Date: 02/28/20 Primary care physician: Blas Vargas MD Discharge provider: Milady Augustine MD Summary Hospital Course Discharge Diagnosis: Left upper extremity swelling thought to be possible cellulitis and pseudogout/inflammatory process Left proximal humeral fracture COPD, hypoxemia resolved Recent upper GI bleed, stable Chronic leukocytosis Hypertension Hospital Course: Patient is seen in cross cover for Dr. Vargas. Reviewed hospital stay thus far. Met with patient discussed with nursing staff. 35 minutes was spent in discharge time. This was spent on the floor with the patient, reviewing chart and formulating plan for discharge Patient was admitted with left upper extremity swelling and pain as well as hypoxemia. Doppler was done that ruled out a venous thrombosis. It was suspected patient had cellulitis. He also was noted to have hypoxemia on admission. His CT angiogram was negative. His BNP was normal. Patient was maintained on his outpatient COPD medications including Combivent, albuterol, inhaled steroid and hypoxemia resolved. Initially started on vancomycin and then switched to cefazolin. Patient had slow improvement and then on hospital day 3. Received IV Solu-Medrol. He had a significant improvement in his pain swelling on mobility of his left upper extremity. He was discharged home on hospital day 4. And improved condition. Patient is discharged home on his outpatient medications. In addition to this he was discharged home on a prednisone taper, completing and oral round of cephalexin and hydrocodone to treat his left upper extremity humeral fracture. Status at Discharge Cognitive/behavioral status at discharge: oriented Functional status at discharge: independent ambulation Overall status at discharge: patient is progressing back to baseline Exam Vital Signs (past 8 hours): - 02/28/20 06:07 02/28/20 07:54 02/28/20 07:55 Temperature 98.2 F 98.6 F Pulse Rate 68 67 67 Respiratory Rate 16 16 18 Blood Pressure 105/60 124/77 Pulse Oximetry 93 93 92 02/28/20 11:31 Temperature 97.1 F L Pulse Rate 68 Respiratory Rate 16 Blood Pressure 103/46 L Pulse Oximetry 93 Oxygen Delivery Method Room Air Oxygen Flow Rate 0 Narrative Exam Narrative: Alert and oriented x3. T-max is 99.7?. Vital signs are stable HEENT and T: Unremarkable Neck: Supple without adenopathy or thyromegaly, no bruit Chest: Prolonged expiratory phase without wheezes rhonchi or crackles Cor: Regular rate and rhythm with distant S1-S2 Abdomen: Obese positive bowel sounds soft nontender nondistended. Lower extremities show no significant edema. Left upper extremity reportedly has markedly decreased swelling though there still is nonpitting swelling of the entire extremity. He has tenderness proximal humerus related to the fracture he has decreased range of motion due to the fracture. There is no rash. Good mobility of the wrist hand and digits without neurologic deficit Objective Labs Result Diagrams: 02/27/20 05:03 02/28/20 05:30 Labs: Laboratory Results - last 24 hr 02/28/20 02/28/20 05:30 05:30 ESR 64 H Sodium 135 L Potassium 4.0 Chloride 95 L Carbon Dioxide 40 H* BUN 21 H Creatinine 0.62 L Estimated GFR > 60.0 BUN/Creatinine Ratio 33.9 H Glucose 134 H Calcium 8.5 Magnesium 2.0 Discharge Assessment & Plan Assessment and Plan Assessment: Left upper extremity cellulitis improved with IV steroids and antibiotics Probable pseudogout, improved with IV steroids Hypertension, stable Hypothyroidism, stable Recent upper GI bleed, stable COPD admitted with hypoxemia resolved Left proximal humeral fracture Plan of Treatment: DC home in stable condition. Patient will be on outpatient medications for his thyroid, hypertension, COPD He will continue on omeprazole He will continue on Keflex to complete antibiotic treatment for suspected possible cellulitis. No cultures were obtained. He will continue on a prednisone taper He will start physical therapy next week for his left humeral head fracture. He will follow-up with orthopedics for this as well. He will follow-up with his primary care provider, Dr. Vargas next week Discharge Plan Discharge Plan Patient Disposition: Home Discharge orders & Medications Prescriptions: New hydrocodone-acetaminophen 10-325 mg Tablet 1 - 2 tab PO Q4HR PRN (Reason: Pain, Moderate (4-6)) Qty: 30 RF: 0 potassium chloride [Klor-Con M20] 20 mEq Tablet,Er Particles/Crystals 20 meq PO DAILY Qty: 30 RF: 3 cephalexin 500 mg capsule 500 mg PO TID Qty: 21 RF: 0 prednisone 20 mg tablet See Rx Instructions .ROUTE .COMPLEX Qty: 17 RF: 0 Continued cyanocobalamin (vitamin B-12) 1,000 MCG tablet extended release 1,000 mcg PO QDAY Qty: 0 RF: 0 levothyroxine 150 mcg tablet See Rx Instructions .ROUTE .COMPLEX Qty: 90 RF: 3 duloxetine 30 mg capsule,delayed release(DR/EC) 30 mg PO DAILY Qty: 90 RF: 3 albuterol sulfate [Proventil HFA] 90 mcg/actuation HFA aerosol inhaler 2 puff INHALATION Q4HP PRN (Reason: shortness of breath or wheezing) Qty: 2 RF: 3 Alvesco 160 mcg/actuation HFA aerosol inhaler 2 puff INHALATION BID Qty: 6.1 RF: 11 diphenhydramine HCl [Allergy (diphenhydramine)] 25 mg capsule 25 mg PO Q4-6H PRN (Reason: Itching) RF: 0 metoprolol succinate 50 mg capsule,sprinkle,ER 24hr 50 mg PO DAILY Qty: 90 RF: 3 fluticasone propionate 50 mcg/actuation spray,suspension 2 spray NASAL BEDTIME PRN (Reason: Allergy Symptoms) RF: 0 Combivent Respimat 20-100 mcg/actuation mist 1 puff INHALATION BID RF: 0 omeprazole 40 mg capsule,delayed release(DR/EC) 40 mg PO BID Qty: 60 RF: 3 ferrous sulfate 325 mg (65 mg iron) tablet 325 mg PO DAILY Qty: 90 RF: 3 chlorthalidone 25 mg tablet 25 mg PO QDAY Qty: 90 RF: 2 Discontinued oxycodone 5 mg tablet 5 - 10 mg PO QID PRN (Reason: pain) Qty: 30 RF: 0 Follow up/Referrals: Blas Vargas MD [Primary Care Provider] - 1 Week Discharge Health Status Multidrug resistant organism: No MDRO Diet/Activity/Treatments Diet: Diet as Tolerated Discharge Data Primary Care Provider: Blas Vargas
[2020-02-28 13:34] VITALS: BP 103/46; PULSE 68
--- NOTE | 2020-02-28 14:05 | PC.NURSE ---
Patient educated about disease process, new medications, follow up appt's with , ss/ of infection, fall risks and ss/ of stroke. Patient verbalized understanding to all discharge teaching. Patient left facility with all belongings. Patient left facility via wheelchair to private vehicle. All patient prescriptions were electronically sent to pharmacy.
== END 2020-02-28 14:08 | disposition home or self-care (01) | DRG 554 ==
LOC: ED 14:45 → AC 18:05
PROVIDERS: Emergency Medicine; Admitting Provider Family Medicine; Emergency Provider Nurse Practitioner Family; PCP Internal Medicine; Referring Provider Nurse Practitioner Family; Visit Provider Internal Medicine
DX: M11.212 Other chondrocalcinosis, left shoulder (principal); S42.302A Unspecified fracture of shaft of humerus, left arm, initial encounter for closed fracture; L03.114 Cellulitis of left upper limb; Z68.41 Body mass index [BMI] 40.0-44.9, adult; R09.02 Hypoxemia; E87.6 Hypokalemia; E66.9 Obesity, unspecified; J44.9 Chronic obstructive pulmonary disease, unspecified; D72.828 Other elevated white blood cell count; I10 Essential (primary) hypertension; E03.9 Hypothyroidism, unspecified; Z85.46 Personal history of malignant neoplasm of prostate; Z87.891 Personal history of nicotine dependence; Z11.59 Encounter for screening for other viral diseases
CPT/HCPCS: 36415; 71045; 71275; 80048; 80053; 81003; 82550; 83605; 83690; 83735; 83880; 84145; 84484; 85025; 85379; 85610; 85651; 85730; 87040; 87635; 93005; 93971; 94640; 94760; 94762; 96361; 96365; 96366; 96375; 96376; 99222; 99232; 99284; G0378; A9270; J0690; J2270; J2930

== ENCOUNTER → 2020-04-21 10:40 | Outpatient (CLI) | payer MEDICARE, SELFPAY ==
[2020-04-21 12:21] LABS: Prostate Specific Antigen < 0.064 ng/mL (0.10-4.00)
== END ==
PROVIDERS: PCP Internal Medicine; Referring Provider Urology; Visit Provider Urology
DX: Z85.46 Personal history of malignant neoplasm of prostate (principal)
CPT/HCPCS: 36415; 84153

== ENCOUNTER → 2020-05-12 14:53 | Outpatient (CLI) | payer MEDICARE, SELFPAY ==
[2020-05-12 15:56] LABS: Add Manual Diff / Slide Review NO; Basophils Absolute Auto 200 /uL (0-100); Basophils Percent Auto 1.2 % (0-2); Eosinophils Absolute Auto 500 /uL (0-450); Eosinophils Percent Auto 4.3 % (2-4); Hematocrit 41.4 % (41-53); Hemoglobin 13.2 g/dL (13.5-17.5); Lymphocytes Absolute Auto 2200 /uL (1100-4500); Lymphocytes Percent Auto 17.1 % (25-40); Mean Corpuscular Hemoglobin 28.3 PG (26-34); Mean Corpuscular Volume 88.6 fL (80-100); Monocytes Absolute Auto 1500 /uL (0-900); Neutrophils Absolute Auto 8300 /uL (1500-7000); Neutrophils Percent Auto 65.4 % (50-75); Platelet Count 499 X10^3/uL (150-400); Red Blood Cell Count 4.67 X10^6/uL (4.5-5.9); Red Cell Distribution Width 15.5 % (11.6-14.8); White Blood Cell Count 12.7 X10^3/uL (4.5-11.0)
[2020-05-12 16:15] LABS: BUN Creatinine Ratio 29.9 (6-22); Blood Urea Nitrogen 20 mg/dL (9-20); Calcium 9.2 mg/dL (8.4-10.2); Carbon Dioxide 35 mmol/L (22-32); Chloride 103 mmol/L (98-107); Estimated Glomerular Filt Rate > 60.0 mL/min (>60); Glucose 70 mg/dL (80-110); HEMOLYSIS < 15 (0-50); Potassium 4.1 mmol/L (3.4-5.1); Sodium 140 mmol/L (137-145)
== END ==
PROVIDERS: PCP Internal Medicine; Referring Provider Orthopaedic Surgery; Visit Provider Orthopaedic Surgery
DX: Z01.818 Encounter for other preprocedural examination (principal); Z01.812 Encounter for preprocedural laboratory examination; R73.9 Hyperglycemia, unspecified; M25.561 Pain in right knee
CPT/HCPCS: 36415; 80048; 83036; 85025; 93005

== ENCOUNTER → 2020-05-22 11:03 | Outpatient (CLI) | payer MEDICARE, SELFPAY ==
[2020-05-22 11:33] LABS: COVID19 -Nasal RAPID Negative (Negative)
== END ==
PROVIDERS: PCP Internal Medicine; Visit Provider Nurse Practitioner Family
DX: Z20.822 Contact with and (suspected) exposure to COVID-19 (principal)
CPT/HCPCS: 87635; C9803

== ENCOUNTER 2020-05-24 05:55 | Day surgery (SDC) | payer MEDICARE, SELFPAY ==
[2020-05-24] VITALS (17 sets, daily range): BP systolic 110–127; BP diastolic 67–81; PULSE 68–96; RESP 10–18; TEMP 36.1–37.3; O2SAT 89–98; BMI 39.1
--- NOTE | 2020-05-24 06:00 | DI.RAD.S_ITS ---
PROCEDURE: XR KNEE RT 1TO2V INDICATIONS: post op films TECHNIQUE: 2 view(s) of the knee acquired. COMPARISON: [facility], CR, XR KNEE LT 3V, 03/24/2019, 10:07. FINDINGS: Bones: Patient is status post knee joint arthroplasty. Hardware components are in expected positions. Visualized bony structures are intact. Soft tissues: Overlying postoperative changes are noted. IMPRESSION: Normal alignment after right total knee arthroplasty. Dictated by: Cruz Elias M.D. on 05/24/2020 at 12:55 Approved by: Cruz Elias M.D. on 05/24/2020 at 12:55
--- NOTE | 2020-05-24 07:15 | PM.PREOP ---
Pre-operative Note COVID-19 COVID-19 status: Negative Result date/Date tested (Pos, Neg/Pending): 05/22/20 Interval Note History & Physical reviewed/Exam performed by Physician: Yes Changes to H&P: No
[2020-05-24] MEDS: PREGABALIN 75 MG CAPSULE PO (07:41)
[2020-05-24] MEDS: ACETAMINOPHEN 325 MG TABLET 975 MG PO (07:41)
[2020-05-24] MEDS: LACTATED RINGERS 1,000 ML 42 ML IV ×2 (07:41→08:38)
[2020-05-24] MEDS: CEFAZOLIN 2 GM/100 ML FROZ.PIGGY IV (07:50)
--- NOTE | 2020-05-24 08:20 | SUR.OPER ---
Supine on padded OR bed. Pillow under head, arms secured on padded armboards <90 degree abduction. Safety belt across torso. Non-operative leg secured with tape over blanket over lower leg. Operative leg secured in DeMayo/Esvin positioner. Foam padded brace at thigh of operative leg.
[2020-05-24] MEDS: BUPIVACAINE 0.5% W/ EPI (PF) 30 ML VIAL INJ (08:26)
[2020-05-24] MEDS: BUPIVACAINE LIPOSOME 266 MG/20 ML VIAL INJ (08:27)
[2020-05-24] MEDS: TRANEXAMIC ACID 1,000 MG VIAL 1000 MG INJ ×2 (08:27→09:14)
[2020-05-24] MEDS: MORPHINE 4 MG/ML INJ INJ (08:27)
[2020-05-24] MEDS: SODIUM CHLORIDE 0.9% FLUSH 10 ML IV (08:41)
--- NOTE | 2020-05-24 09:40 | P.OP_ITS ---
Operative Date/Time/Diagnoses Date of procedure: 05/24/20 Time of procedure: 09:40 Pre-op diagnosis: Right knee osteoarthritis Post-op diagnosis: same Procedure & Clinicians Procedure: Right total knee replacement Same procedure as scheduled: Yes Indications: The patient has had progressively worsening right knee pain with radiographic changes consistent with arthritis. Non-operative management has failed and the patient has requested total knee replacement. The risks, benefits and alternatives to surgery were discussed with the patient prior to proceeding. Risks discussed included, but were not limited to, failure to relieve pain, stiffness, infection, nerve damage, deep venous thrombosis, pulmonary embolism, stroke, coma, heart attack, permanent paralysis and , as well as the potential need for eventual revision of the prosthetic. Surgeon: Honorio Suarez Statistical Methods Professor: Feliciano Jackson Click Yes if Unassisted: No Anesthesia Type: General, Spinal and Local Operative Notes Findings: Severe medial osteoarthritis with varus deformity moderate patellofemoral and lateral osteoarthritis. Closure Type: primary Specimen(s): none sent Prosthetic devices, grafts, tissues, transplants, or devices: Implants used in this procedure were manufactured by the [employer] and [employer] and included the BCS II Journey total knee replacement with a size 6 cobalt chromium right femoral component, a right non porous size 6 tibial base plate, a 10 mm cross-linked polyethylene tibial insert and a 35 mm oval Wilda II patella. Applied: implant(s) Estimated Blood Loss (mL): 25 Blood products transfused: none Tourniquet time (min): 52 Procedure in detail: The patient was seen in the pre-operative area, where the patient identified the right knee as the operative site and this was marked with my initials. The patient received pre-operative antibiotics, and was taken to the operating room and placed on the operative table in the supine position. After satisfactory anesthesia, a manager multimedia out was performed. The right leg was encircled with a tourniquet about the proximal thigh, and the leg was prepared from the toes to the tourniquet with ChloroPrep in the usual fashion and draped through sterile drapes. The leg was elevated and exsanguinated with Eschmark bandage and the tourniquet inflated to 250 mmHg pressure. The knee was approached through an approximately 18 cm incision centered over the patella and carried into the knee through a medial parapatellar arthrotomy. The anterior osteophytes and soft tissues were removed. The rotational landmarks of Rashad's line and the transepicondylar axis were marked on the femur with electrocautery, and intramedullary guide holes for the femur and tibia were created. The distal femoral cut was made in 6 degrees of valgus using the intramedullary guide at the primary cut setting. The proximal tibial cut was then made using the intramedullary guide, taking 9 mm of bone off the less involved side. The extension gap was checked and the rotation of the femoral component confirmed with the gap balancing system. The anterior, posterior and chamfer cuts were then made. The posterior osteophytes and soft tissues were then removed. The posterior capsule was injected with part of a mixture of 60 ml 0.25% Marcaine mixed with 20 ml Exparel and 4 mg of morphine for post-operative pain control. The remainder of this mixture was injected into the capsule and subcutaneous tissues during cement curing. The tibia was prepared with the rotation set by an extra medullary guide. Trial tibial and femoral components were then placed and the intercondylar notch cut through the femoral trial. Range of motion was 0-135 degrees, with good stability throughout the range. The patella was then cut to accommodate the patellar prosthetic. There was a tendency for the patella to dislocate laterally so a pie crust lateral release was performed, this alleviated the issue. The trials were then removed, and the femoral hole plugged with a bone plug. The bone was prepared with pulsatile lavage, and dried with a sponge. Cement was applied and the final prosthetics placed. Excess cement was removed during and after cement curing. After confirming there was no extruded cement posteriorly, the final tibial insert was placed. The knee was copiously irrigated and the tourniquet deflated. Hemostasis was obtained. The capsule was closed with interrupted # 2 polyester suture. The subcutaneous layer was closed with 3-0 Vicryl, and the skin with a running 3-0 V-Lock suture and Dermabond. A Madeleine dressing was applied and the patient was taken to recovery having tolerated the procedure well. Complications: none Post-operative Condition: stable Disposition: PACU Plan for aftercare: The patient will be maintained on a standard total knee replacement protocol with weight bearing as tolerated. The patient will receive aspirin and sequential compression devices for DVT prophylaxis. The patient will be discharged home when safe for the home environment.
--- NOTE | 2020-05-24 10:26 | PC.NURSE ---
Day shift: Pt on unit at approx 1025 from PACU. VS WNL. 2L NC 95%. Oriented to room and call light. High fall risk for now. Bed alarm is on. CVall light in reach. DIXIE and SANTOS wrap is CDI. Good cap refill. Can not wiggle rt toes at this time. PPP. Agrees to not get OOB w/o help from staff. Denies any chest pain, knee pain or nausea at this time. Will continue w/ post-op plan of care.
[2020-05-24] MEDS: LACTATED RINGERS 1,000 ML 100 ML IV ×2 (11:15→20:40)
[2020-05-24] MEDS: CYANOCOBALAMIN (VITAMIN B-12) 500 MCG TABLET 1000 MCG PO (11:15)
[2020-05-24] MEDS: CHLORTHALIDONE 25 MG TABLET 50 MG PO (11:15)
[2020-05-24] MEDS: IBUPROFEN 400 MG TABLET PO ×3 (11:56→20:41)
[2020-05-24] MEDS: OXYCODONE IR 10 MG TABLET PO ×3 (11:56→20:45)
--- NOTE | 2020-05-24 12:59 | PT-IP ANOTE ---
Received PT orders and reviewed chart. Met with pt to gather PLOF. He had been medicated for pain 30 minutes before and was quite groggy/sleepy. As staffing allows, will attempt to see pt for mobility evaluation later today or tomorrow morning.
[2020-05-24] MEDS: ACETAMINOPHEN 325 MG TABLET 650 MG PO ×2 (13:54→20:40)
--- NOTE | 2020-05-24 14:45 | PT.IIE ---
Current Diagnoses Unilateral primary osteoarthritis, right knee (05/24/20) Surgery Performed Operation Date: 05/24/20 07:45 Actual Procedures p Total Knee Arthroplasty(Right) - Honorio Suarez MD Surgical History (Last Updated 05/19/20 @ 13:24 by Alice Sanchez, RN) History of spinal fusion (2012) History of splenectomy (1975) Status post cataract extraction of both eyes with insertion of intraocular lens Status post wrist surgery (2011) Medical History (Last Updated 05/19/20 @ 14:02 by Alice Sanchez, RN) Acquired insufficiency of aortic valve (10/08/15) Cellulitis (~02/2020) Chronic obstructive pulmonary disease (01/19/11) Cobalamin deficiency CTS (carpal tunnel syndrome) Duodenal ulcer Eczema Elevated d-dimer (~02/2020) Essential hypertension Former smoker Gastric ulcer History of malignant neoplasm of prostate Hypothyroidism (08/21/14) Idiopathic peripheral neuropathy Leukocytosis (01/19/11) Low back pain of over 3 months duration (11/15/16) Obesity (01/19/11) Olecranon bursitis of left elbow Osteoarthritis Prostate cancer (2010) Thrombocytosis (01/19/11) Unilateral primary osteoarthritis, right knee Weakness of right lower extremity (11/15/16) Physical Therapy Inpatient Evaluation/Re-Eval M1 PT/OT-IP Prior Functional Status Start: 05/24/20 10:47 Freq: NEEDED Status: Active Protocol: Document 05/24/20 14:37 AW (Rec: 05/24/20 14:54 AW [id number]) Medical Review Prior Functional Status Medical History Reviewed Yes Communication WNL. Pt is an effective verbal communicator. Mobility and Gait Pt reports independent mobility without AD at baseline. He does have recent history (January 2020) of fall resulting in left proximal humerus fracture. Pt has peripheral neuropathy affecting sensation on the plantar surfaces of both feet and reports history of multiple falls in the past year. Activities of Daily Living and IADL's Independent. 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 Prior Functional Level (Other details) Per EMR, pt has history of CAD , COPD (no home O2). Social History Household Members none Living Arrangements House Number of Floors (Floors) Two Floors Number of Stairs To Enter/Railing? Back entrance has two small steps with R rail ascending. Inside, there are 15 steps with landing midway, L rail ascending. Pt states he plans to stay in the guest room on the main/entry level paralegal. 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 His designated visitor and ride home is Josi. A family friend, Liliam, is planning to stay with the patient to help out for a week following surgery. M2 PT-IP Current Condition Start: 05/24/20 10:47 Freq: NEEDED Status: Active Protocol: Document 05/24/20 14:37 AW (Rec: 05/24/20 14:54 AW [id number]) Physical Therapy Current Condition Current Condition Evaluation Date 05/24/20 Treatment Diagnosis R TKA; difficulty in walking Onset Date 05/24/20 Weight Bearing Status Weight Bearing Status Weight Bear as Tolerated M3 PT-IP Subjective Start: 05/24/20 10:47 Freq: NEEDED Status: Active Protocol: Document 05/24/20 14:37 AW (Rec: 05/24/20 14:54 AW [id number]) Subjective Physical Therapy Visit Type Type Initial Evaluation Visit Start Time 12:35 Visit Stop Time 14:35 Total Visit Minutes 38 Notes Split visits [id number] and [id number]. Pt more alert at second visit. Number of QUILT MAKER Visits 0 Physical Therapy Visit Comments Patient Comments Pt is willing to participate with PT Therapy Pain Assessment Pain When Pain Assessed During Mobility Pain Present Pain Present Pain Reported Location right knee Intensity 8 Scale Used 4/10 at rest Pain Management Techniques Apply Cold,Distraction,Timing of Activity with Medications M4 PT-IP Mobility and Gait Start: 05/24/20 10:47 Freq: NEEDED Status: Active Protocol: Document 05/24/20 14:37 AW (Rec: 05/24/20 14:54 AW [id number]) PT-Bed Mobility Assessment Supine to Sit Supine to Sit Minimal Assistance,1 Person Assistance Sit to Supine Sit to Supine Minimal Assistance,1 Person Assistance Scooting Scooting to Edge of Bed Contact Guard Assistance PT-Transfer Assessment Sit to and From Stand Sit to and from Stand Minimal Assistance,1 Person Assistance,Use of Upper Extremities Equipment Transfer Assistive Device Gait Belt,Front Wheeled Walker Orthotic/Prosthetic Devices or Brace: No Transfers Transfer Destination Bed Transfer Technique Stand Step Pivot Transfer Ability Level of Assist Minimal Assistance,1 Person Assistance Comments Mobility Comments Pt was lyingin the bed as PT returned on second visit. BP was 115/71 HR 84 SpO2 91% on 1L/min via NC. He completed supine to sit min A x 1 to assist the operative leg toward left side of the bed. Pt stood from the bed in lowest position min A x 1 and was able to shift weight laterally with heavy use of FWW for BUE weightbearing. He ambulated 8 feet forward, turned, and walked back to the bed with FWW and min assist for balance support and IV pole management. Pt sat and completed sit to supine min A x 1 to lift the operative leg back to the bed. Pt was left with call light and all needs in reach. PT supplied fresh ice pack for right knee and armed the bed alarm for safety . Gait Assessment Gait Gait Assistance Required: Minimum Assistance,1 Person Assist Distance (Feet) 16 Able to Maintain Weight Bearing Status Yes During Gait Assistive Devices Assistive Device Gait Belt,Front Wheeled Walker Orthotic/Prosthetic Devices or Brace: No Gait Deviations General Gait Pattern Antalgic,Decreased Stride Length,Decreased Feet Clearance,Flexed Trunk,Step-to Gait,Wide Based Gait Factors Limiting Gait Function Factors Limiting Gait Function Decreased Activity Tolerance, Decreased Sensation,Decreased Strength,Limited Range of Motion,Pain,Poor Balance Comments Gait Comments See mobility comments for details. Stair Climbing Assessment Comments Stair Climbing Comments Not assessed. PT-Balance Assessment Sitting Balance and Reactions Static Sitting Balance Ability Good Dynamic Sitting Balance Ability Good Standing Balance and Reactions Static Standing Balance Ability Good Dynamic Standing Balance Ability Fair Device Used FWW Balance Tests Single Limb Standing 1 sec RLE; 3 sec LLE M5 PT-IP Objective Assessments Start: 05/24/20 10:47 Freq: NEEDED Status: Active Protocol: Document 05/24/20 14:37 AW (Rec: 05/24/20 14:54 AW [id number]) Orientation Orientation/Cognition Level of Alertness Lethargic Orientation Name,Birthday,Day of Week, Place,Situation Language Function Ability No Deficits Noted Safety Awareness Decreased Safety Awareness Memory Description No Deficits Noted Gross Range of Motion Lower Extremity ROM Assessment Right Impaired Strength Lower Extremity Strength Assessment Right Impaired Hip 3+/5 Knee 3-/5 Ankle 4-/5 Comments Strength Comments LLE grossly 4-/5 Sensation Assessment Sensation Gross Sensation Right LE Impaired,Left LE Impaired Light Touch Impaired Sensation Description Numbness Comments Sensation Comments Idiopathic peripheral neuropathy affecting sensation in bilateral feet (plantar surfaces most affected). M6 PT-IP Treatment Start: 05/24/20 10:47 Freq: NEEDED Status: Active Protocol: Document 05/24/20 14:37 AW (Rec: 05/24/20 14:54 AW [id number]) Physical Therapy Treatment Exercises Exercises Ankle Pumps,Quad Sets,Heel Slides,Passive Knee Extension Hang Education Education Provided Precautions,Weight Bearing Status,Post-Op Packet,Safety Other Treatments Other Treatment Performed Provided education on role of PT, plan of care, weightbearing status, and safe use of FWW. M7 PT-IP Assessment and Plan Start: 05/24/20 10:47 Freq: NEEDED Status: Active Protocol: Document 05/24/20 14:37 AW (Rec: 05/24/20 14:54 AW [id number]) PT Summary Assessment and Plan Potential Rehabilitation Potential Good Status of Condition at Evaluation Evolving Summary Impairments Pain,ROM,Strength,Balance, Sensation,Bed Mobility, Transfers,Gait,Activity Tolerance Assessment Summary Tanner Vincent) is a 69 yo man seen for PT evaluation on POD0 following R TKA. He admits to significant falls history with recent fall resulting in left proximal humerus fracture. He denies use of any assistive device at baseline. On evaluation, pt required min assist for all mobility including short bout of ambulation with FWW. He will need to progress his ambulation distance and participate in stair training prior to discharge. PT anticipates he will be safe for discharge home with assist and outpatient PT once medically cleared. He has arranged for a friend to stay with him for one week to provide assist at home. Goals Bed Mobility Goal Standby Assistance Transfer Goal Standby Assistance,Front Wheeled Walker Gait Goal Standby Assistance,Front Wheel Walker Gait Distance 150 Other Goals - up/down 2 steps with R rail ascending SBA Days to Meet Goals 3 Frequency of Treatment Frequency Of Treatment Twice a Day Treatment Plan Physical Therapy Treatment Plan Bed Mobility Training,Transfer Training,Gait Training, Therapeutic Exercise,Balance Retraining,Post Op Education, Discharge Planning,Hot or Cold Pack Other Recommendations and Next Treatment don shoes for ambulation; gait Focus training with FWW; stairs when able Recommendations To Nursing Amount of Assist Needed 1 Person Assist Discharge Recommendations PT Discharge Recommendations Home with Assistance, Outpatient PT Transportation Needs at Discharge Private Vehicle
--- NOTE | 2020-05-24 15:32 | CM.DANOTE ---
Patient is a 69 year old male who was admitted on 05/24/20 today for RTKA. Pt has [facility] and [employer] for insurance and his PCP is Dr. Blas Vargas. EMR was reviewed. Per Ortho MD, pt tolerated procedure well. Per PT, recommending likely safe d/c home with assist and outpt PT although pt still needs to attempt stairs and further PT prior to discharge home. Pt resides in [place] alone but has local supportive gf/partner Josi and pt is independent at baseline and drives and has had a few falls over the past year due to neuropathy in his feet. 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 Pt states that his gf plans to provide transport home at d/c and friend Liliam to stay with pt for a week for assist. Plan: SW to follow closely tomorrow to confirm pt continues to progress with PT for safe plan of home with assist and outpt PT. EDITH Wade Discharge Planning/Care Management CM Discharge Assessment Start: 05/24/20 15:30 Freq: Status: Active Protocol: Document 05/24/20 15:30 BF (Rec: 05/24/20 15:32 BF [id number]) Discharge Planning Assessment Assigned Circle Edger EDITH Eason Advance Directives? No Advance Directives on File No History Provided By Patient,Medical Record Has Patient been admitted in last 30 No days? Prior Living Arrangements House Household Members none Type of transporation used prior to Drives own vehicle admit Independent with ADL's Yes Is patient alert and oriented? Yes Needs Assistance With Home Chores / Shopping Caregiver for Another No Community Services used prior to Physical Therapy admission: DME Already Rented / Owned FWW / Walker Patient/Family Preference OP PT Therapy Barriers to Discharge No Discharge Plan Home Community Services Physical Therapy Transportation Arrangement Girlfriend Josi to provide transport home at d/c Referrals Initiated None needed Review Status In Process Please Provide Date Initial DC 05/24/20 Assessment Was Performed Next Review Type Continued Stay Review Pre-Anesthesia Assessment Start: 05/18/20 16:33 Freq: Status: Active Protocol: Document 05/18/20 16:33 VLJ (Rec: 05/18/20 16:40 VLJ [id number]) Pre-Anesthesia Assessment PAC Comment 05/19/20 Left message to please review EKG to see if he still felt patient was cleared for surgery 05/20/20 Francisca from [facility] called , and said 'no worries, no significant change on ECG compared to previous' Preferred Name Carlton Patient Information Reviewed Via Chart Review,Phone Assessment Assessment Completed With Patient Diagnostic Results BMP/CMP,CBC,EKG,Other Comment A1c Primary Care Provider Blas Vargas Medical Clearance Received Yes Seen Specialist in Last 12 Months Yes Specialist Seen Orthopedist Preferred Language Hungarian Installation Superintendent Required No Height 170.18 cm Hearing Ability Normal Visual Assist Glasses Dentition Type Teeth, Natural Present,Teeth, Missing Barriers to Learning Visual Other Aids No Comment reading glasses Hx Anesthesia Reactions No Hx Family Anesthesia Reaction No Hx Malignant Hyperthermia No Hx Blood Transfusions Yes Hx Blood Transfusion Reaction No Anesthesia Review Requested No First Mate No alcohol intake former Smoking Status Former smoker Tobacco type cigarettes how long ago did patient quit smoking as a teenager Substance Use Type does not use Pain Present Pain Reported Comment Bilateral knees, ankles, 'arthritis all over' Neuropathy in feet Musculoskeletal Symptoms Abnormal Gait,Difficulty Walking,Joint Pain,Joint Stiffness,Joint Swelling, Limited Range of Motion,Muscle Cramps,Numbness History of Falling (Recent or History of Yes ) Comment usually on stairs Patient is completely paralyzed or No completely immobile Ambulatory Aid None/bed rest/nurse assist Gait/Transferring Normal/bedrest/immobile, Impaired Mental Status Oriented to own ability Is patient on oxygen? No Does patient have REED/SOB Yes Hx Sleep Apnea No CPAP/BIPAP use not prescribed Suspected Sleep Apnea Yes Comment + STOP/Bang Currently Taking a Beta Leonarda No Can You Climb a Flight of Stairs Without Yes SOB Hx Chest Pain No Hx SOB Yes Hx Syncope or Dizziness No Anti-Coagulant Therapy No Has a Scaffold Setter No Cardiac Testing Yes: [facility] thinks he has a partial occlusion Hx Pacemaker/ICD No Cardiac Clearance Received Not Applicable Comment States that Dr. Vargas is aware, no work-up was done Additional comment EGD w/anesthesia 02/26 Diet Type At Home Regular dysphagia No Gastrointestinal Symptoms Diarrhea,Reflux Comment occasional diarrhea Bladder Pattern Hesitancy,Nocturia Urinary Catheter Present No Hx Urinary Self Catheterization No Diabetes No HgbA1C 6.0 Date 05/12/20 Hx Drug Resistant Organism No Presence of External or Internal Medical Yes: Jason IOLs, hardware in Devices neck Have you had any close contact with No someone diagnosed with COVID-19? Are you experiencing any of these Diarrhea,Cough symptoms? Evaluation/Screening for possible COVID- Yes 19 infection completed? Comment coughing and diarrhea are baseline, Covid 05/22/20 at Marital Status Single Lives With none Prior Living Arrangements House Number of Floors (Floors) Two Floors Number of Stairs To Enter/Railing? no stairs into house, can stay on main level Support System Family,Friend(s) Does the Patient Have Assistance After Yes Surgery Patient Discharge Plan Description Return Home Feels Safe in Current Environment Yes Been Physically Hurt or Threatened By a No Person in Current Environment Do you have thoughts of harming yourself None or others? Are you currently considering suicide? No Do you have a plan to hurt yourself or No Plan others? Do You Have Any Spiritual Beliefs That No May Affect Your HC Choices? Do You Have Any Cultural Practices That No May Affect Your HC Choices? Comment Muslim Who Can We Speak to About Patient's Care Friends & family Identifying Code for Release of Patient Declined Information Health Care Proxy/Next of Kin Blas Hauser (brother) retired GP Health Care Proxy Emergency Contact Name Blas Hauser (brother) Emergency Contact Advance Directives? No Power of Cell Feed Department Supervisor No PAC Instructions Assistance for 24 hours post- op,Do not shave/clip surgical site,Durable medical equipment ,Medications to take/avoid, Nasal antibiotic,No ETOH/ petroleum product on skin DOS, NPO,Post-op transportation,Pre -op antibiotic,Pre-surgical wash,Sensory aids,Sturdy shoes /comfortable clothes,Do not bring valuables and remove jewelry Stop Bang Assessment Do you snore loudly (louder than talking No or loud enough to be heard through closed doors) Do you often feel tired, fatigued or Yes sleepy during the daytime Has anyone ever observed you stop No breathing while sleeping? Do you have, or are you being treated Yes for, high blood pressure Is your BMI more than 35 kg/m2 Yes Age over 50 Yes Estimated neck circumference greater No than 40cm or 16in Gender male Yes Result Positive
[2020-05-24] MEDS: hydrOXYzine pamoate 25 MG CAPSULE PO (16:09)
[2020-05-24] MEDS: IPRATROPIUM INH (20:05)
[2020-05-24] MEDS: ALBUTEROL INH (20:05)
[2020-05-24] MEDS: PANTOPRAZOLE 40 MG TABLET PO (20:41)
[2020-05-24] MEDS: DOCUSATE 100 MG CAPSULE PO (20:41)
[2020-05-25] MEDS: IBUPROFEN 400 MG TABLET PO ×4 (00:09→12:19)
[2020-05-25 00:20] VITALS: BP 148/81; PULSE 81; RESP 18; TEMP 36.7; O2SAT 95
[2020-05-25] MEDS: OXYCODONE IR 10 MG TABLET PO ×2 (00:21→11:14)
[2020-05-25 04:04] VITALS: BP 127/65; PULSE 88; RESP 18; TEMP 36.8; O2SAT 96
[2020-05-25 05:16] LABS: Hemoglobin 11.3 g/dL (13.5-17.5)
[2020-05-25] MEDS: OXYCODONE IR 5 MG TABLET PO ×2 (05:19→08:36)
[2020-05-25] MEDS: LEVOTHYROXINE 150 MCG TABLET PO (06:31)
--- NOTE | 2020-05-25 06:58 | PM.DS.1 ---
History of Present Illness History of Present Illness Date Patient Seen: 05/25/20 Time Patient Seen: 06:58 Chief complaint: OPB Narrative: The history of present illness and physical examination is contained in the chart in a previously completed note. Please refer to that note for this information. Discharge Providers Provider Date of admission: 05/24/20 Discharge Date: 05/25/20 Primary care physician: Blas Vargas MD Consults: 05/24/20 10:25 Consult to Discharge Planning Routine Comment: Consult to Physical Therapy Evaluate & Treat Comment: Physician Instructions: postop TKA protocol Consult to Respiratory Therapy Evaluate & Treat Comment: Physician Instructions: Evaluate and treat Discharge provider: Honorio Suarez MD Summary Hospital Course Discharge Diagnosis: 1. Right knee osteoarthritis 2. Post hemorrhagic anemia Hospital Course: The patient was admitted to the hospital and taken directly to the operating room on May 24, 2020. He underwent a right total knee replacement without complications. He was reasonably comfortable overnight and at the time of this dictation is anticipated he will be able to go home today. Status at Discharge Cognitive/behavioral status at discharge: oriented Functional status at discharge: uses cane/walker Overall status at discharge: patient is progressing back to baseline Time Spent with Patient Time spent: Less than 30 minutes Exam Vital Signs (past 8 hours): - 05/25/20 00:20 05/25/20 04:04 Temperature 98.1 F 98.2 F Pulse Rate 81 88 Respiratory Rate 18 18 Blood Pressure 148/81 H 127/65 Pulse Oximetry 95 96 Oxygen Delivery Method Nasal Cannula Oxygen Flow Rate 1 Narrative Exam Narrative: Right knee wound is dressed with no drainage on the bandage. Calf is soft. Light touch and motion are intact in the right lower extremity. Objective Labs Result Diagrams: 05/25/20 04:55 Labs: Laboratory Results - last 24 hr 05/25/20 04:55 Hgb 11.3 L Hct 36.0 L [facility] Medical History (Updated 05/19/20 @ 14:02 by Alice Sanchez RN) Acquired insufficiency of aortic valve (10/08/15) Cellulitis (~02/2020) Chronic obstructive pulmonary disease (01/19/11) Cobalamin deficiency CTS (carpal tunnel syndrome) Duodenal ulcer Eczema Elevated d-dimer (~02/2020) Essential hypertension Former smoker Gastric ulcer History of malignant neoplasm of prostate Hypothyroidism (08/21/14) Idiopathic peripheral neuropathy Leukocytosis (01/19/11) Low back pain of over 3 months duration (11/15/16) Obesity (01/19/11) Olecranon bursitis of left elbow Osteoarthritis Prostate cancer (2010) Thrombocytosis (01/19/11) Unilateral primary osteoarthritis, right knee Weakness of right lower extremity (11/15/16) Surgical History (Updated 05/19/20 @ 13:24 by Alice Sanchez RN) History of spinal fusion (2012) History of splenectomy (1975) Status post cataract extraction of both eyes with insertion of intraocular lens Status post wrist surgery (2011) Family History Brother Thyroid cancer Mother Breast cancer Father No problems noted. 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 He has a mild post hemorrhagic anemia which does not require treatment. He appears to be stable as far as pain control. He should be able to go home this morning after his physical therapy. Plan of Treatment: Physical therapy this morning, likely discharge later in the morning. Follow up at my office in 10-14 days. He has been given prescriptions for oxycodone and hydroxyzine. Instructions have been given for the use of aspirin for DVT prophylaxis and the use of ibuprofen and Tylenol for multimodal pain control. Discharge Plan Discharge Plan Patient Disposition: Home Discharge orders & Medications Discharge Orders: Discharge (Order); Ordered 05/25/20 Ordered By: Honorio Suarez Prescriptions: New acetaminophen 325 mg Tablet 650 mg PO TID 30 Days Qty: 180 RF: 0 aspirin 81 mg Tablet,Delayed Release (Dr/Ec) 81 mg PO BID 42 Days Qty: 84 RF: 0 ibuprofen 400 mg Tablet 400 mg PO Q4HR 30 Days RF: 0 oxycodone 5 mg Tablet 5 mg PO Q4H PRN (Reason: Pain, Moderate (4-6)) Qty: 40 RF: 0 hydroxyzine pamoate 25 mg Capsule 25 mg PO Q6HR PRN (Reason: Nausea) Qty: 30 RF: 0 Continued cyanocobalamin (vitamin B-12) 1,000 MCG tablet extended release 1,000 mcg PO QDAY Qty: 0 RF: 0 levothyroxine 150 mcg tablet See Rx Instructions .ROUTE .COMPLEX Qty: 90 RF: 3 duloxetine 30 mg capsule,delayed release(DR/EC) 30 mg PO DAILY Qty: 90 RF: 3 albuterol sulfate [Proventil HFA] 90 mcg/actuation HFA aerosol inhaler 2 puff INHALATION Q4HP PRN (Reason: shortness of breath or wheezing) Qty: 2 RF: 3 Alvesco 160 mcg/actuation HFA aerosol inhaler 2 puff INHALATION BID Qty: 6.1 RF: 11 diphenhydramine HCl [Allergy (diphenhydramine)] 25 mg capsule 25 mg PO Q4-6H PRN (Reason: Itching) RF: 0 fluticasone propionate 50 mcg/actuation spray,suspension 2 spray NASAL BEDTIME PRN (Reason: Allergy Symptoms) RF: 0 Combivent Respimat 20-100 mcg/actuation mist 1 puff INHALATION BID RF: 0 omeprazole 40 mg capsule,delayed release(DR/EC) 40 mg PO BID Qty: 60 RF: 3 ferrous sulfate 325 mg (65 mg iron) tablet 325 mg PO DAILY Qty: 90 RF: 3 potassium chloride [Klor-Con M20] 20 mEq Tablet,Er Particles/Crystals 20 meq PO DAILY Qty: 30 RF: 3 chlorthalidone 25 mg tablet 50 mg PO QDAY RF: 0 Discontinued tramadol 50 mg tablet 50 mg PO TID PRN (Reason: pain) Qty: 120 RF: 0 Follow up/Referrals: Blas Vargas MD [Primary Care Provider] - Honorio Suarez MD [Physician] - 2 Weeks Diet/Activity/Treatments Diet: Diet as Tolerated and Regular Activity: You may bear weight as tolerated on your right leg. Cold/Heat Therapy: Apply ice for 15 minutes every hour as needed to the right knee for pain control. Skin/Wound/Dressing Care Report to your healthcare provider any signs of infection, such as:: chills, fever, night sweats, increased pain, unusual drainage and unusual redness Dressing: You may remove the Tim wrap 3 days after surgery and shower normally with the deeper dressing in place. Removed the battery pack from the deeper dressing before showering. When the batteries run out you may disconnect the battery pack, we will remove the deeper dressing when you return to clinic. Call the clinic if the central portion of the deeper dressing is saturated with water or blood. Visit Report/Discharge Packet Instructions: DI for Knee Replacement Stand Alone Forms: Surgery Discharge Discharge Data Primary Care Provider: Blas Vargas Attending Provider: Honorio Suarez
[2020-05-25 07:03] VITALS: PULSE 89; RESP 12; O2SAT 93
[2020-05-25 07:30] VITALS: BP 115/81; PULSE 79; RESP 16; TEMP 36.4; O2SAT 94
[2020-05-25] MEDS: DOCUSATE 100 MG CAPSULE PO (08:35)
[2020-05-25] MEDS: ASPIRIN EC 81 MG TABLET PO (08:35)
[2020-05-25] MEDS: POTASSIUM CHLORIDE 20 MEQ TAB PO (08:35)
[2020-05-25] MEDS: DULOXETINE 30 MG CAPSULE PO (08:35)
[2020-05-25] MEDS: FERROUS SULFATE 325 MG TABLET PO (08:36)
[2020-05-25] MEDS: CYANOCOBALAMIN (VITAMIN B-12) 500 MCG TABLET 1000 MCG PO (08:36)
[2020-05-25] MEDS: PANTOPRAZOLE 40 MG TABLET PO (08:36)
[2020-05-25] MEDS: CHLORTHALIDONE 25 MG TABLET 50 MG PO (08:36)
[2020-05-25] MEDS: ACETAMINOPHEN 325 MG TABLET 650 MG PO (08:37)
--- NOTE | 2020-05-25 09:24 | PT.IPTN ---
Current Diagnoses Unilateral primary osteoarthritis, right knee (05/24/20) Surgery Performed Operation Date: 05/24/20 07:45 Actual Procedures p Total Knee Arthroplasty(Right) - Honorio Suarez MD Physical Therapy Treatment Note M2 PT-IP Current Condition Start: 05/24/20 10:47 Freq: NEEDED Status: Active Protocol: Document 05/24/20 14:37 AW (Rec: 05/24/20 14:54 AW [id number]) Physical Therapy Current Condition Current Condition Evaluation Date 05/24/20 Treatment Diagnosis R TKA; difficulty in walking Onset Date 05/24/20 Weight Bearing Status Weight Bearing Status Weight Bear as Tolerated M3 PT-IP Subjective Start: 05/24/20 10:47 Freq: NEEDED Status: Active Protocol: Document 05/25/20 09:24 AW (Rec: 05/25/20 11:12 AW [id number]) Subjective Physical Therapy Visit Type Type Treatment Note Visit Start Time 08:59 Visit Stop Time 09:24 Total Visit Minutes 25 Number of BACK END ENGINEER Visits 0 Physical Therapy Visit Comments Patient Comments Pt is willing to participate with PT Therapy Pain Assessment Pain When Pain Assessed During Mobility Pain Present Pain Present Reassessed Location right knee Intensity 7 Scale Used 4/10 at rest Pain Management Techniques Apply Cold,Distraction,Timing of Activity with Medications M4 PT-IP Mobility and Gait Start: 05/24/20 10:47 Freq: NEEDED Status: Active Protocol: Document 05/25/20 09:24 AW (Rec: 05/25/20 11:12 AW [id number]) PT-Transfer Assessment Sit to and From Stand Sit to and from Stand Standby Assistance,Contact Guard Assistance Equipment Transfer Assistive Device Gait Belt,Front Wheeled Walker Orthotic/Prosthetic Devices or Brace: No Transfers Transfer Destination Chair Transfer Technique Stand Step Pivot Transfer Ability Level of Assist Standby Assistance,Contact Guard Assistance Comments Mobility Comments Pt was sitting up in the chair as PT arrived. He completed sit to stand CGA and agreed to ambulate. With FWW, he walked 100 feet to the therapy stairs and participated in stair training, requiring CGA, cues for sequencing, and B rails on first attempt and FIELD STAFF MANAGER with right rail on second attempt. Pt then transferred to a wheelchair SBA and was pushed back to his room. He stood from the w/c SBA and ambulated 10 feet to the chair . He sat SBA and positioned himself on the chair. Pt was left with all needs and call light in reach. PT supplied fresh ice pack for R knee. Gait Assessment Gait Gait Assistance Required: Standby Assistance Distance (Feet) 100 Able to Maintain Weight Bearing Status Yes During Gait Assistive Devices Assistive Device Gait Belt,Front Wheeled Walker Orthotic/Prosthetic Devices or Brace: No Gait Deviations General Gait Pattern Antalgic,Decreased Stride Length,Decreased Feet Clearance,Flexed Trunk,Step-to Gait,Wide Based Gait Factors Limiting Gait Function Factors Limiting Gait Function Decreased Activity Tolerance, Decreased Sensation,Decreased Strength,Limited Range of Motion,Pain,Poor Balance Comments Gait Comments See mobility comments for details. Pt was able to correct step-to patterning in response to cues for smaller but equal step lengths. Stair Climbing Assessment Evaluation Level of Assist On Stairs Contact Guard Assistance Devices Stair Climbing Assistive Devices Right Railing Technique/Endurance Stair Climbing Direction Ascend and Descend Stair Climbing Technique Step to Step Number of Steps Climbed 3 Stair Climbing Set # Repetitions (reps) 2 Comments Stair Climbing Comments See mobility comments for details. PT-Balance Assessment Sitting Balance and Reactions Static Sitting Balance Ability Good Dynamic Sitting Balance Ability Good Standing Balance and Reactions Static Standing Balance Ability Good Dynamic Standing Balance Ability Good Device Used FWW M5 PT-IP Objective Assessments Start: 05/24/20 10:47 Freq: NEEDED Status: Active Protocol: Document 05/24/20 14:37 AW (Rec: 05/24/20 14:54 AW [id number]) Orientation Orientation/Cognition Level of Alertness Lethargic Orientation Name,Birthday,Day of Week, Place,Situation Language Function Ability No Deficits Noted Safety Awareness Decreased Safety Awareness Memory Description No Deficits Noted Gross Range of Motion Lower Extremity ROM Assessment Right Impaired Strength Lower Extremity Strength Assessment Right Impaired Hip 3+/5 Knee 3-/5 Ankle 4-/5 Comments Strength Comments LLE grossly 4-/5 Sensation Assessment Sensation Gross Sensation Right LE Impaired,Left LE Impaired Light Touch Impaired Sensation Description Numbness Comments Sensation Comments Idiopathic peripheral neuropathy affecting sensation in bilateral feet (plantar surfaces most affected). M6 PT-IP Treatment Start: 05/24/20 10:47 Freq: NEEDED Status: Active Protocol: Document 05/25/20 09:24 AW (Rec: 05/25/20 11:12 AW [id number]) Physical Therapy Treatment Exercises Exercises Ankle Pumps,Quad Sets,Heel Slides,Passive Knee Extension Hang,Seated Knee Flexion/ Extension Education Education Provided Weight Bearing Status,Safety Other Treatments Other Treatment Performed Educated pt to continue working on ROM as primary goal of initial phase of rehab. M7 PT-IP Assessment and Plan Start: 05/24/20 10:47 Freq: NEEDED Status: Active Protocol: Document 05/25/20 09:24 AW (Rec: 05/25/20 11:12 AW [id number]) PT Summary Assessment and Plan Potential Rehabilitation Potential Good Status of Condition at Evaluation Stable Summary Impairments Pain,ROM,Strength,Balance, Sensation,Bed Mobility, Transfers,Gait,Activity Tolerance Progress Towards Goals Progressing Toward Goals,Slow Progress due to Pain Assessment Summary Carlton improved his mobility today and completed stair training. He has a cryocuff for cold therapy at home and was encouraged to use it hourly as tolerated. He will have assist at home. He is safe to discharge home with assist and should set up outpatient PT as soon as possible. Goals Bed Mobility Goal Standby Assistance Transfer Goal Standby Assistance,Front Wheeled Walker Gait Goal Standby Assistance,Front Wheel Walker Gait Distance 150 Other Goals - up/down 2 steps with R rail ascending SBA Days to Meet Goals 3 Frequency of Treatment Frequency Of Treatment Twice a Day Treatment Plan Physical Therapy Treatment Plan Bed Mobility Training,Transfer Training,Gait Training, Therapeutic Exercise,Balance Retraining,Post Op Education, Discharge Planning,Hot or Cold Pack Recommendations To Nursing Amount of Assist Needed Standby Assistance,Power Sit- Stand Discharge Recommendations PT Discharge Recommendations Home with Assistance, Outpatient PT Transportation Needs at Discharge Private Vehicle
[2020-05-25 11:37] VITALS: BP 110/72; PULSE 81; RESP 16; O2SAT 93
--- NOTE | 2020-05-25 11:43 | CM.DPC ---
DCP Discharge Home Per Ortho, pt is medically stable to d/c home today with no identified barriers to discharge. PT worked with pt again this morning and completed stairs and recommending safe d/c home with assist and outpt PT. Pt confirms his friend plans to stay for at least a week to provide assist and he is agreeable with no concerns regarding discharge home today. Plan: Patient to d/c home via friend POV and outpt PT follow up and no further SW needs at this time. EDITH Wade
--- NOTE | 2020-05-25 13:04 | PC.NURSE ---
Day shift: Pt left unit in WC at approx 1305. Taken out by CHARLIE Villa. Pt's spouse is driving him home. DIXIE functioning proper. SANTOS wrap in place. Both appear CDI. Good CMS. Cleared by PT/OT. Paperwork signed and all questions answered. Pt has all personal belongings. Pt stated that he has his MD scripts already. Pt also has the extra DIXIE dressing and was instructed to bring it with to his F/U or if he needs to go sooner. Pain well controlled per JUN. Denied any nausea today. Voiding well.
--- NOTE | 2020-05-27 11:33 | CM.DPNOTE ---
Faxed clinicals for referral for inpatient rehab to [facility] and [facility], fabian Smith. [facility], spoke to Yadira at [phone] and she said that no bed is available until Sunday, . I left a voice message for Mayco Pastor at [facility]. Nikki Ramirez CM Asst.
== END 2020-05-25 13:07 | disposition home or self-care (01) ==
LOC: OR 06:04 → AC 06:05
PROVIDERS: PCP Internal Medicine; Referring Provider Internal Medicine; Visit Provider Orthopaedic Surgery
PROC: 0SRC0JZ Replacement of Right Knee Joint with Synthetic Substitute, Open Approach (ICD-10-PCS; CPT 27447; principal; 2020-05-24 07:45)
DX: M17.11 Unilateral primary osteoarthritis, right knee (principal); D50.0 Iron deficiency anemia secondary to blood loss (chronic); E66.9 Obesity, unspecified; Z68.37 Body mass index [BMI] 37.0-37.9, adult; J44.9 Chronic obstructive pulmonary disease, unspecified; I10 Essential (primary) hypertension; E03.9 Hypothyroidism, unspecified; G62.9 Polyneuropathy, unspecified
CPT/HCPCS: 27447; 36415; 73560; 85014; 85018; 94640; 94762; 97110; 97116; 97161; 97530; C1776; A9270; C9290; J0690; J1100; J2250; J2270; J2405; J2704; J3010

== ENCOUNTER 2020-05-28 15:07 | Emergency (ER) | payer MEDICARE, SELFPAY ==
[2020-05-24 10:43] VITALS: BMI 39.1
[2020-05-28] VITALS (10 sets, daily range): BP systolic 122–153; BP diastolic 73–84; PULSE 85–96; RESP 12–16; TEMP 36.8; O2SAT 86–96; BMI 39.1
--- NOTE | 2020-05-28 15:44 | ED_ITS ---
HPI - Extremity Problem General Chief complaint: Extremity Problem,Nontraumatic Stated complaint: Knee pain/swelling s/p surgery Sunday Time Seen by Provider: 05/28/20 15:14 Source: EMS Mode of arrival: EMS Limitations: no limitations History of Present Illness HPI Narrative: Patient is a 69-year-old male who is postop day 3 from a right TKA presenting today with increased swelling. He says he has been up and wal colleen. However there is significant worsening of swelling. His pain does seem to be controlled on OxyContin. He does not have a lot of help at home. He denies any fever it is mildly erythematous he denies numbness or tingling MD Complaint: extremity pain and extremity swelling Related Data Home Medications Medication Instructions Recorded Confirmed cyanocobalamin (vitamin B-12) 1,000 mcg PO QDAY #0 04/04/17 05/19/20 diphenhydramine HCl 25 mg capsule 25 mg PO Q4-6H PRN 09/14/17 05/24/20 Combivent Respimat 1 puff INHALATION BID 02/19/20 05/19/20 fluticasone propionate 2 spray NASAL BEDTIME PRN 02/19/20 05/19/20 chlorthalidone 50 mg PO QDAY 05/19/20 05/19/20 Previous Rx's Medication Instructions Recorded levothyroxine 150 mcg tablet See Rx Instructions .ROUTE 05/12/19 .COMPLEX #90 tab duloxetine 30 mg capsule,delayed 30 mg PO DAILY #90 cap 08/22/19 release albuterol sulfate 90 mcg/actuation 2 puff INHALATION Q4HP PRN #2 10/06/19 aerosol inhaler device ciclesonide 160 mcg/actuation 2 puff INHALATION BID #6.1 gram 01/14/20 aerosol inhaler ferrous sulfate 325 mg PO DAILY #90 tab 02/20/20 omeprazole 40 mg PO BID #60 cap 02/20/20 potassium chloride [Klor-Con M20] 20 meq PO DAILY #30 tab 02/27/20 acetaminophen 650 mg PO TID 30 Days #180 tab 05/25/20 aspirin 81 mg PO BID 42 Days #84 tab 05/25/20 hydroxyzine pamoate 25 mg PO Q6HR PRN #30 cap 05/25/20 ibuprofen 400 mg PO Q4HR 30 Days tab 02/16/21 oxycodone 5 mg PO Q4H PRN #40 tab 05/25/20 Allergies Allergy/AdvReac Type Severity Reaction Status Date / Time crab [CRAB] Allergy Severe Throat Verified 05/24/20 06:50 swelling animal dander [ANIMAL DANDER] Allergy Mild Sinus Verified 05/24/20 06:50 congestion, itching, eczema pollen extracts Allergy Unknown Sinus Verified 05/24/20 06:50 [POLLEN EXTRACTS] congestion, itching, eczema Review of Systems Review of Systems Narrative: GENERAL: Denies chills, fatigue, malaise, fever, sweats, travel HEENT: Denies sinus pain, ear pain, sore throat, difficulty swallowing, neck pain RESPIRATORY: Denies dyspnea, cough, wheezing, hemoptysis, sputum. CARDIOVASCULAR: Denies chest pain, palpitations, orthopnea, edema GASTROINTESTINAL: Denies nausea, vomiting, abdominal pain, diarrhea, constipation, melena. : Denies dysuria, frequency, incontinence, hematuria, urinary retention, flank pain. MUSCULOSKELETAL: See HPI SKIN: No rash, no erythema, no pruritus NEUROLOGIC: Denies weakness, dizziness, headache, numbness, change in speech, confusion PSYCHIATRIC: No concerning psychosocial issues. 12 point review of systems is negative except for those stated above and HPI Patient History Medical History Acquired insufficiency of aortic valve (10/08/15) Cellulitis (~02/2020) Chronic obstructive pulmonary disease (01/19/11) Cobalamin deficiency CTS (carpal tunnel syndrome) Duodenal ulcer Eczema Elevated d-dimer (~02/2020) Essential hypertension Former smoker Gastric ulcer History of malignant neoplasm of prostate Hypothyroidism (08/21/14) Idiopathic peripheral neuropathy Leukocytosis (01/19/11) Low back pain of over 3 months duration (11/15/16) Obesity (01/19/11) Olecranon bursitis of left elbow Osteoarthritis Prostate cancer (2010) Thrombocytosis (01/19/11) Unilateral primary osteoarthritis, right knee Weakness of right lower extremity (11/15/16) Surgical History History of spinal fusion (2012) History of splenectomy (1975) Status post cataract extraction of both eyes with insertion of intraocular lens Status post wrist surgery (2011) Family History Brother Thyroid cancer Mother Breast cancer Father No problems noted. 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: [employer] travel history: recent () leisure activities: art (Photography), volunteer work and other (Traveling) Smoking Status: Former smoker Tobacco: How many years used: 15 Smokeless tobacco user: other (Cigarettes) quit status: quit date established (1989) second hand exposure: No alcohol intake: former substance use type: does not use Smoking Status: Former smoker alcohol intake frequency: holidays/special occasions only Substance Use Type: does not use Exam Initial Vital Signs Initial Vital Signs: Vital Signs Temperature 98.2 F 05/28/20 15:19 Pulse Rate 96 H 05/28/20 15:19 Respiratory Rate 16 05/28/20 15:19 Blood Pressure 142/76 H 05/28/20 15:19 Pulse Oximetry 86 L 05/28/20 15:19 GENERAL: Well-appearing, well-nourished and in no acute distress. HEENT: Head atraumatic,EOMI, pupils reactive, face symmetric, moist mucous membranes CARDIOVASCULAR: Regular rate and rhythm without murmurs, rubs or gallops. RESPIRATORY: Breath sounds equal bilaterally, no wheezes rales or rhonchi. EXTREMITIES: Normal range of motion, no clubbing or edema. Neurovascularly intact Right leg significant swelling postoperative bandage is clean and dry, minimal erythema NEUROLOGICAL: Alert and oriented x4.Normal gait and speech. Cranial nerves II through XII grossly intact. SKIN: Warm, dry, no laceration, no petechiae, no rashes or lesions. Course Orders Ordered: ED Orders 05/28/20 15:53 US periph venous low extrem rt Stat 05/28/20 17:59 Consult to PROCESS STEWARD - Salt Grinder Stat Discontinued Medications Oxycodone HCl (Oxycodone 5 Mg/5 Ml Oral Solution) 5 mg PO NOW ONE Stop: 05/28/20 16:01 Last Admin: 05/28/20 16:16 Dose: Not Given Documented by: MAINOR Oxycodone HCl (Oxycodone Ir 5 Mg Tablet) 5 mg PO NOW ONE Stop: 05/28/20 16:15 Last Admin: 05/28/20 16:25 Dose: 5 mg Documented by: MAINOR Vital Signs Vital signs: Vital Signs - 8 hr 05/28/20 15:19 05/28/20 15:20 05/28/20 15:22 Temperature 98.2 F Pulse Rate 96 H 96 H Respiratory Rate 16 14 Blood Pressure 142/76 H Pulse Oximetry 86 L 95 95 05/28/20 15:30 05/28/20 16:00 05/28/20 16:30 Temperature Pulse Rate 96 H 91 H 90 Respiratory Rate 14 15 14 Blood Pressure 140/77 137/81 122/75 Pulse Oximetry 94 95 96 05/28/20 17:00 05/28/20 17:30 05/28/20 18:00 Temperature Pulse Rate 88 91 H 90 Respiratory Rate 13 15 13 Blood Pressure 136/73 141/84 H 141/73 H Pulse Oximetry 95 94 95 05/28/20 18:30 Temperature Pulse Rate 85 Respiratory Rate 12 Blood Pressure 153/73 H Pulse Oximetry 93 MDM - Extremity (Nontraumatic) Imaging Data US - DVT: Radiologist's Impression: PROCEDURE: US PERIPH VENOUS LOW EXTREM RT INDICATIONS: swelling post op TECHNIQUE: Real-time imaging, as well as color and pulse Doppler interrogation, were performed of the lower extremity deep veins from the inguinal ligament to the popliteal fossa. COMPARISON: None. FINDINGS: The common femoral, femoral and popliteal veins are normally compressible, and free of intraluminal thrombus. Color and pulse Doppler demonstrate normal phasic intraluminal flow. There is normal augmentation response to distal compression maneuver. IMPRESSION: No evidence of deep vein thrombosis involving the right lower extremity. Dictated by: Aparna Wallace MD, PhD on 05/28/2020 at 17:49 MDM Narrative Medical decision making narrative: Social Work has been in seen evaluate patient to get him some help at home. Ultrasound does not show evidence of clot. At this time likely postoperative swelling. I do recommend whole leg ultrasound in 5-7 days and compression socks as well. Discharge Plan Departure Patient Disposition: Home Clinical Impression: Post-operative pain Instructions: DI for Postoperative Pain Activity Restrictions/Additional Instructions: *You have been diagnosed with postoperative pain and swelling *What to do: At this time I suspect that your swelling is normal postoperative. However in 1 week I do recommend that he have repeat ultrasound that includes the lower part of her leg. Please wear compression socks which will help with swelling. Follow Orthopedics instructions in regards to activity level *Continue to take medications as directed *Follow up with your primary care provider in 2-3 days *Return to ER if you should have fever, redness, worsening pain or any new, worsening or concerning symptoms Prescriptions: No Action cyanocobalamin (vitamin B-12) 1,000 MCG tablet extended release 1,000 mcg PO QDAY Qty: 0 RF: 0 levothyroxine 150 mcg tablet See Rx Instructions .ROUTE .COMPLEX Qty: 90 RF: 3 duloxetine 30 mg capsule,delayed release(DR/EC) 30 mg PO DAILY Qty: 90 RF: 3 albuterol sulfate [Proventil HFA] 90 mcg/actuation HFA aerosol inhaler 2 puff INHALATION Q4HP PRN (Reason: shortness of breath or wheezing) Qty: 2 RF: 3 Alvesco 160 mcg/actuation HFA aerosol inhaler 2 puff INHALATION BID Qty: 6.1 RF: 11 diphenhydramine HCl [Allergy (diphenhydramine)] 25 mg capsule 25 mg PO Q4-6H PRN (Reason: Itching) RF: 0 fluticasone propionate 50 mcg/actuation spray,suspension 2 spray NASAL BEDTIME PRN (Reason: Allergy Symptoms) RF: 0 Combivent Respimat 20-100 mcg/actuation mist 1 puff INHALATION BID RF: 0 omeprazole 40 mg capsule,delayed release(DR/EC) 40 mg PO BID Qty: 60 RF: 3 ferrous sulfate 325 mg (65 mg iron) tablet 325 mg PO DAILY Qty: 90 RF: 3 potassium chloride [Klor-Con M20] 20 mEq Tablet,Er Particles/Crystals 20 meq PO DAILY Qty: 30 RF: 3 chlorthalidone 25 mg tablet 50 mg PO QDAY RF: 0 acetaminophen 325 mg Tablet 650 mg PO TID 30 Days Qty: 180 RF: 0 aspirin 81 mg Tablet,Delayed Release (Dr/Ec) 81 mg PO BID 42 Days Qty: 84 RF: 0 ibuprofen 400 mg Tablet 400 mg PO Q4HR 30 Days RF: 0 oxycodone 5 mg Tablet 5 mg PO Q4H PRN (Reason: Pain, Moderate (4-6)) Qty: 40 RF: 0 hydroxyzine pamoate 25 mg Capsule 25 mg PO Q6HR PRN (Reason: Nausea) Qty: 30 RF: 0 Referrals: Blas Vargas MD [Primary Care Provider] - Honorio Suarez MD [Physician] -
--- NOTE | 2020-05-28 15:53 | DI.US.S_ITS ---
PROCEDURE: US PERIPH VENOUS LOW EXTREM RT INDICATIONS: swelling post op TECHNIQUE: Real-time imaging, as well as color and pulse Doppler interrogation, were performed of the lower extremity deep veins from the inguinal ligament to the popliteal fossa. COMPARISON: None. FINDINGS: The common femoral, femoral and popliteal veins are normally compressible, and free of intraluminal thrombus. Color and pulse Doppler demonstrate normal phasic intraluminal flow. There is normal augmentation response to distal compression maneuver. IMPRESSION: No evidence of deep vein thrombosis involving the right lower extremity. Dictated by: Aparna Wallace MD, PhD on 05/28/2020 at 17:49 Approved by: Aparna Wallace MD, PhD on 05/28/2020 at 17:50
[2020-05-28] MEDS: OXYCODONE IR 5 MG TABLET PO (16:25)
--- NOTE | 2020-05-28 18:22 | CM.SWNOTE ---
PACKAGING DESIGN ENGINEER note PACKAGING DESIGN ENGINEER consult requested for patient. Patient is a 69 y/o male who presents to this ED due to edema following a recent knee replacement. Per conversation with patient and chart review, patient did have some support at home for first week after surgery, but reports that, starting tomorrow, he will no longer have help. PACKAGING DESIGN ENGINEER and patient discuss options for in home support. Patient explains he is able to get to his appointments, but is in need of some help with ADL's and is interested in caregiving support. Patient states he is intersted in [facility] doing an assessment, and PACKAGING DESIGN ENGINEER offers to call to request a follow up call for patient following day (due to late hour of current assessment). Patient accepts offer. PACKAGING DESIGN ENGINEER calls [facility] and leaves voicemail with patient's phone number. Pl: Patient to continue course of care in ED and increase amount of in-home care following d/c. EDITH Cao
== END 2020-05-28 18:52 | disposition home or self-care (01) ==
PROVIDERS: Emergency Provider Emergency Medicine; PCP Internal Medicine
DX: G89.18 Other acute postprocedural pain (principal); Z96.651 Presence of right artificial knee joint; I10 Essential (primary) hypertension
CPT/HCPCS: 93971; 99283; 99284

== ENCOUNTER → 2020-06-16 11:15 | Outpatient (CLI) | payer MEDICARE, SELFPAY ==
[2020-05-24 10:43] VITALS: BMI 39.1
[2020-06-16] MEDS: COVID-19 VACC, Ad26(JANSSEN)/PF 0.5 ML IM (11:38)
== END ==
PROVIDERS: PCP Internal Medicine; Visit Provider Internal Medicine
DX: Z23 Encounter for immunization (principal)
CPT/HCPCS: 0031A; 91303

== ENCOUNTER → 2020-08-06 10:35 | Outpatient (CLI) | payer MEDICARE, SELFPAY ==
[2020-05-24 10:43] VITALS: BMI 39.1
[2020-08-06 11:20] LABS: Add Manual Diff / Slide Review NO; Basophils Absolute Auto 100 /uL (0-100); Basophils Percent Auto 0.7 % (0-2); Eosinophils Absolute Auto 900 /uL (0-450); Eosinophils Percent Auto 6.9 % (2-4); Hematocrit 41.7 % (41-53); Hemoglobin 13.1 g/dL (13.5-17.5); Lymphocytes Absolute Auto 2300 /uL (1100-4500); Lymphocytes Percent Auto 18.1 % (25-40); Mean Corpuscular HGB Conc 31.5 % (30-36); Mean Corpuscular Hemoglobin 27.6 PG (26-34); Mean Corpuscular Volume 87.6 fL (80-100); Monocytes Absolute Auto 1400 /uL (0-900); Monocytes Percent Auto 11.5 % (3-14); Neutrophils Absolute Auto 7800 /uL (1500-7000); Neutrophils Percent Auto 62.8 % (50-75); Platelet Count 550 X10^3/uL (150-400); Red Blood Cell Count 4.76 X10^6/uL (4.5-5.9); Red Cell Distribution Width 17.3 % (11.6-14.8); White Blood Cell Count 12.5 X10^3/uL (4.5-11.0)
[2020-08-06 12:05] LABS: Blood Urea Nitrogen 27 mg/dL (9-20); Calcium 9.4 mg/dL (8.4-10.2); Carbon Dioxide 33 mmol/L (22-32); Chloride 99 mmol/L (98-107); Estimated Glomerular Filt Rate > 60.0 mL/min (>60); Glucose 156 mg/dL (80-110); HEMOLYSIS 25 (0-50); Potassium 4.1 mmol/L (3.4-5.1); Sodium 138 mmol/L (137-145)
[2020-08-06 13:29] LABS: Hemoglobin A1C% w Est Avg Glu 5.8 % (4.0-6.0)
== END ==
PROVIDERS: PCP Internal Medicine; Referring Provider Orthopaedic Surgery; Visit Provider Orthopaedic Surgery
DX: Z01.812 Encounter for preprocedural laboratory examination (principal); I10 Essential (primary) hypertension; R73.9 Hyperglycemia, unspecified
CPT/HCPCS: 36415; 80048; 83036; 85025

== ENCOUNTER → 2020-08-25 09:29 | Outpatient (CLI) | payer MEDICARE, SELFPAY ==
[2020-05-24 10:43] VITALS: BMI 39.1
[2020-08-25 11:09] LABS: COVID19 -Nasal RAPID Negative (Negative)
== END ==
PROVIDERS: PCP Internal Medicine; Visit Provider Physician Assistant
DX: Z01.812 Encounter for preprocedural laboratory examination (principal); Z20.822 Contact with and (suspected) exposure to COVID-19
CPT/HCPCS: 87635; C9803

== ENCOUNTER 2020-08-26 07:36 | Day surgery (SDC) | payer MEDICARE, SELFPAY ==
[2020-05-24 10:43] VITALS: BMI 39.1
[2020-08-26] VITALS (7 sets, daily range): BP systolic 125–158; BP diastolic 82–91; PULSE 82–96; RESP 16–20; TEMP 36.4–36.7; O2SAT 92–98; BMI 39.1
--- NOTE | 2020-08-26 | PATH_ITS ---
[facility] Accession Number: [id number] . 01 Material submitted: . PART A: stomach - GASTRIC CARDIA PART B: esophagus - DISTAL ESOPHAGUS . 02 Diagnosis: A. Stomach, Cardia, Biopsy: Oxyntic-type mucosa with mild chronic gastritis. Negative for Helicobacter by immunohistochemistry. Negative for intestinal metaplasia. Negative for dysplasia or malignancy. . B. Distal Esophagus, Biopsy: Columnar mucosa with no diagnostic abnormality. Negative for intestinal metaplasia by alcian blue stain. Negative for dysplasia and malignancy. [facility] 09/01/2020 1512 Local . 02 Electronically signed: . Shana Dawn MD, Pathologist NPI- [id number] . 01 Gross description: . A. Specimen A is received in formalin labeled gastric cardia and consists of two berry-pink fragments of soft tissue, measuring 0.4 x 0.3 x 0.2 cm in aggregate. The specimen is entirely submitted in cassette A1. B. Specimen B is received in formalin labeled distal esophagus and consists of two berry fragments of soft tissue, measuring 0.3 x 0.2 x 0.2 cm in aggregate. The specimen is entirely submitted in cassette B1. (EA:[id number]) /[facility] 08/27/2020 1826 Local . 02 Microscopic: . A. An immunohistochemical stain was performed to evaluate for Helicobacter organisms and is negative. The control stain showed appropriate reactivity. . B. An alcian blue stain was performed to evaluate for intestinal metaplasia and is negative. The control stain showed appropriate reactivity. . . * This test was developed and its performance characteristics determined by [facility]. It has not been cleared or approved by the U.S. Food and Drug Administration. The FDA has determined that such clearance or approval is not necessary. This test is used for clinical purposes. It should not be regarded as investigational or for research. . 02 Pathologist provided ICD-10: K29.70 . 02 CPT . 701906, 107535, 749135, [id number] Performed at: 01 [facility] [address] [id number] MD Shad Multani MD Phone: [phone] Performed at: [address] [place] [id number] [place] [id number] MD Shana Dawn MD Phone: [phone]
--- NOTE | 2020-08-26 07:42 | PM.HP.1 ---
History of Present Illness History of Present Illness Date Patient Seen: 08/26/20 Time Patient Seen: 07:43 Chief complaint: SDC Narrative: This is a 69-year-old man who came into the emergency department last February with complaint of black diarrheal stools. He had been on quite a bit of Aleve after having fractured his humerus the month prior. In the hospital he had an upper endoscopy which revealed some acute non bleeding peptic ulcers. H pylori was negative, pathology was indicative of acute ulcers, and no neoplastic or malignant findings. He denies any abdominal pain since the time of his EGD. He has not taken any more Aleve, and is taking hydrocodone for his orthopedic pain from his left humerus fracture. He says he is now on physical therapy, and is expected to recover from the humerus fracture within the next month or so. He otherwise has a history of COPD, obesity with a BMI of 38, aortic insufficiency, peripheral neuropathy, hypertension, prostate cancer, chronic back pain, chronic knee pain. He was instructed to continue taking omeprazole until is follow-up EGD. He comes in today for follow-up EGD. ROS: Thirteen system review is otherwise negative other than as mentioned below and in HPI. PE: GENERAL: Well groomed and cooperative. Moderately obese. Appears stated age. Answers questions promptly and appropriately. Vital signs noted. HENT: Normocephalic, atraumatic. Hearing intact. EYES: Conjunctiva pink, sclera white, no periorbital swelling. CARDIOVASCULAR: Regular rate. No pedal edema. RESPIRATORY: Non-tachypneic, breathing comfortably on room air. GASTROINTESTINAL: Abdomen soft and non-distended GENITALURINARY: No flank tenderness. MUSCULOSKELETAL: Equal tone and mass bilaterally. Left upper extremity is in a sling. SKIN: Warm, dry, soft, appropriate color for ethnicity. No other lesions, rashes, or wounds. NEURO: Alert and Oriented X 3. No gross sensory deficits, or cognitive issues. PSYCH: Appropriate affect and mood. Patient History Medical History Acquired insufficiency of aortic valve (10/08/15) Cellulitis (~02/2020) Chronic obstructive pulmonary disease (01/19/11) Cobalamin deficiency CTS (carpal tunnel syndrome) Duodenal ulcer Eczema Elevated d-dimer (~02/2020) Essential hypertension Former smoker Gastric ulcer History of malignant neoplasm of prostate Hypothyroidism (08/21/14) Idiopathic peripheral neuropathy Leukocytosis (01/19/11) Low back pain of over 3 months duration (11/15/16) Obesity (01/19/11) Olecranon bursitis of left elbow Osteoarthritis Prostate cancer (2010) Thrombocytosis (01/19/11) Unilateral primary osteoarthritis, right knee Weakness of right lower extremity (11/15/16) Surgical History History of spinal fusion (2012) History of splenectomy (1975) Status post cataract extraction of both eyes with insertion of intraocular lens Status post wrist surgery (2011) Family & Social History Family History Brother Thyroid cancer Mother Breast cancer Father No problems noted. Social History: household members none lives independently Yes caregiver/support person No Tobacco & Substance use: Tobacco type cigarettes Smoking Status Former smoker alcohol intake former alcohol intake frequency holiday/special occasion Substance Use Type does not use Meds Home Medications and Allergies Home Medications Medication Instructions Recorded Confirmed Type cyanocobalamin (vitamin B-12) 1,000 mcg PO QDAY #0 04/04/17 08/26/20 History diphenhydramine HCl 25 mg capsule 25 mg PO Q4-6H PRN 09/14/17 08/26/20 History albuterol sulfate 90 mcg/actuation 2 puff INHALATION Q4HP PRN #2 10/06/19 08/26/20 Rx aerosol inhaler device ciclesonide 160 mcg/actuation 2 puff INHALATION BID #6.1 gram 01/14/20 08/26/20 Rx aerosol inhaler Combivent Respimat 1 puff INHALATION BID 02/19/20 08/26/20 History fluticasone propionate 2 spray NASAL BEDTIME PRN 02/19/20 08/26/20 History ferrous sulfate 325 mg PO DAILY #90 tab 02/20/20 08/26/20 Rx hydroxyzine pamoate 25 mg PO Q6HR PRN #30 cap 05/25/20 08/26/20 Rx duloxetine 30 mg capsule,delayed 30 mg PO DAILY #90 cap 05/31/20 08/26/20 Rx release omeprazole 40 mg capsule,delayed 40 mg PO BID #60 cap 05/31/20 08/26/20 Rx release potassium chloride 20 mEq 20 meq PO DAILY #30 tab 05/31/20 08/26/20 Rx tablet,extended release(part/cryst) levothyroxine 150 mcg tablet See Rx Instructions .ROUTE 06/07/20 08/26/20 Rx .COMPLEX #90 tab chlorthalidone 25 mg tablet 50 mg PO QDAY #180 tab 06/16/20 Rx Allergies Allergy/AdvReac Type Severity Reaction Status Date / Time crab [CRAB] Allergy Severe Throat Verified 08/26/20 07:46 swelling animal dander [ANIMAL DANDER] Allergy Mild Sinus Verified 08/26/20 07:46 congestion, itching, eczema pollen extracts Allergy Unknown Sinus Verified 08/26/20 07:46 [POLLEN EXTRACTS] congestion, itching, eczema Assessment & Plan Assessment & Plan narrative: Risks and benefits of esophagogastroduodenoscopy and possible biopsy were discussed with the patient including risk of bleeding, perforation, need for additional procedures, risks of anesthesia. The patient desires to proceed with the colonoscopy procedure. COVID-19 COVID-19 status: Negative Result date/Date tested (Pos, Neg/Pending): 08/25/20 Time Spent With Patient Time with patient: 15-24 minutes Quality VTE Deep Vein Thrombosis/Pulmonary Embolism Present on Admission: No
[2020-08-26] MEDS: SODIUM CHLORIDE 0.9% 1,000 ML 200 ML IV (08:03)
--- NOTE | 2020-08-26 08:09 | PM.OP.ENDO ---
Operative Date/Time/Diagnoses Date of procedure: 08/26/20 Time of procedure: 08:10 Pre-op diagnosis: history of peptic ulcers Post-op diagnosis: other (Healing ulcer in the gastric cardia, mild gastritis) Procedure & Clinicians Study performed: Esophagogastroduodenoscopy Procedural sedation performed by the endoscopist Same procedure as scheduled: Yes Indications: Personal history of peptic ulcers, here for surveillance EGD Surgeon: Anjali Torres Procedure Notes SCOAP/Timeout: Performed Procedure in detail: The patient was brought to the room and placed in left lateral decubitus position with all bony prominences padded. A bite block was positioned in the patient's mouth to protect the lips, teeth, and tongue for the procedure. A time-out was performed and then the patient was given procedural sedation starting with [4] mg of Versed and [100] mcg of fentanyl. Vitals were monitored throughout the procedure and remained stable. Once adequately sedated, the procedure was begun. The lubricated gastroscope was passed through the bite block and across the tongue and into the esophagus without incident. A tubular view of the esophagus was maintained as the scope was advanced through the esophagus and into the stomach. The scope was advanced through the stomach and to the pylorus. The scope was gently popped through the pylorus and into the duodenal bulb. The scope was flexed and advanced into the second and third portions of the duodenum. The duodenum and duodenal bulb [appeared normal]. The duodenal ulcers seen on his prior examination appear to have healed. The scope was withdrawn into the stomach. The stomach revealed some mild endoscopic gastritis. The scope was retroflexed and the gastric cardia was examined. There was a thickened area in the gastric cardia consistent with a healing ulcer. Biopsies were taken at this site. The hiatus [appeared otherwise normal]. The scope was then straightened, and withdrawn into the esophagus. There were few mucosal breaks in the Z-line, but the distal esophagus appeared otherwise normal. Biopsies were taken. The scope was then withdrawn through the esophagus with a tubular view. The scope was then withdrawn from the patient the procedure was concluded. The patient tolerated the procedure well and was transferred to the PACU in stable condition. Total of 6 mg of Versed and 100 micro g of fentanyl were given for the entire procedure. Sedation minutes: 11 Findings: gastric ulcer and gastritis Specimen(s): other (Biopsies of gastric cardia, and distal esophagus) Complications: none Impression: Healing ulcer in the gastric cardia, no evidence of ongoing duodenal ulcers Post-procedure Recommendations: Other recommendation (We will contact you with biopsy results as well as your primary doctor. We will let you know our recommendations regarding your omeprazole once the biopsy results have been received.) Follow up: as needed Disposition: PACU
[2020-08-26] MEDS: LIDOCAINE 4% SOLN 50 ML 20 ML TOP (08:16)
[2020-08-26] MEDS: fentaNYL 250 MCG/5 ML INJ IV (08:17)
[2020-08-26] MEDS: MIDAZOLAM 5 MG/5 ML VIAL IV (08:17)
== END 2020-08-26 09:26 | disposition home or self-care (01) ==
PROVIDERS: PCP Internal Medicine; Referring Provider Internal Medicine; Visit Provider Surgery
PROC: 0DJ08ZZ Inspection of Upper Intestinal Tract, Via Natural or Artificial Opening Endoscopic (ICD-10-PCS; CPT 43235; principal; 2020-08-26 08:30)
DX: Z09 Encounter for follow-up examination after completed treatment for conditions other than malignant neoplasm (principal); Z87.11 Personal history of peptic ulcer disease; J44.9 Chronic obstructive pulmonary disease, unspecified; E66.9 Obesity, unspecified; I10 Essential (primary) hypertension; Z68.38 Body mass index [BMI] 38.0-38.9, adult; K29.60 Other gastritis without bleeding
CPT/HCPCS: 43239; 99152; J2250; J3010

== ENCOUNTER → 2020-08-28 09:42 | Outpatient (CLI) | payer MEDICARE, SELFPAY ==
[2020-05-24 10:43] VITALS: BMI 39.1
[2020-08-28 10:56] LABS: COVID19 -Nasal RAPID Negative (Negative)
== END ==
PROVIDERS: PCP Internal Medicine; Referring Provider Physician Assistant; Visit Provider Physician Assistant
DX: Z01.812 Encounter for preprocedural laboratory examination (principal); Z20.822 Contact with and (suspected) exposure to COVID-19
CPT/HCPCS: 87635; C9803

== ENCOUNTER 2020-08-31 15:08 | Observation (INO) | payer MEDICARE, SELFPAY ==
[2020-05-24 10:43] VITALS: BMI 39.1
[2020-08-27 10:53] VITALS: BMI 38.2
[2020-08-30] VITALS (18 sets, daily range): BP systolic 105–132; BP diastolic 58–76; PULSE 72–94; RESP 10–18; TEMP 35.9–37.7; O2SAT 91–99; BMI 39.1
--- NOTE | 2020-08-30 06:30 | DI.RAD.S_ITS ---
PROCEDURE: XR KNEE LT 1TO2V INDICATIONS: post op total knee TECHNIQUE: 2 view(s) of the knee acquired. COMPARISON: None. FINDINGS: Bones: Patient is status post knee joint arthroplasty. Hardware components are in expected positions. Visualized bony structures are intact. Soft tissues: Overlying postoperative changes are noted. IMPRESSION: Expected postsurgical change for left knee arthroplasty. Dictated by: Aparna Wallace MD, PhD on 08/31/2020 at 16:35 Approved by: Aparna Wallace MD, PhD on 08/31/2020 at 16:35
[2020-08-30] MEDS: CELECOXIB 200 MG CAPSULE PO (10:59)
[2020-08-30] MEDS: LACTATED RINGERS 1,000 ML 100 ML IV ×3 (10:59→16:30)
[2020-08-30] MEDS: PREGABALIN 75 MG CAPSULE PO (11:00)
[2020-08-30] MEDS: ACETAMINOPHEN 325 MG TABLET 975 MG PO (11:00)
--- NOTE | 2020-08-30 12:09 | PM.PREOP ---
Pre-operative Note COVID-19 COVID-19 status: Negative Result date/Date tested (Pos, Neg/Pending): 08/28/20 Interval Note History & Physical reviewed/Exam performed by Physician: Yes Changes to H&P: No
[2020-08-30] MEDS: TRANEXAMIC ACID 1,000 MG VIAL 1000 MG INJ ×2 (13:48→14:43)
--- NOTE | 2020-08-30 13:49 | SUR.OPER ---
Supine on padded OR bed. Pillow under head, arms secured on padded armboards <90 degree abduction. Safety belt across torso. Non-operative leg secured with tape over blanket over lower leg. Operative leg secured in DeMayo/Esvin positioner.
[2020-08-30] MEDS: BUPIVACAINE 0.5% W/ EPI (PF) 30 ML VIAL INJ (14:00)
[2020-08-30] MEDS: BUPIVACAINE LIPOSOME 266 MG/20 ML VIAL INJ (14:01)
[2020-08-30] MEDS: MORPHINE 4 MG/ML INJ INJ (14:02)
[2020-08-30] MEDS: CEFAZOLIN 1 GM VIAL 2 GM IV (14:03)
[2020-08-30] MEDS: SODIUM CHLORIDE 0.9% FLUSH 10 ML IV (14:04)
--- NOTE | 2020-08-30 15:05 | P.OP_ITS ---
Operative Date/Time/Diagnoses Date of procedure: 08/30/20 Time of procedure: 15:06 Pre-op diagnosis: Left knee osteoarthritis Post-op diagnosis: same Procedure & Clinicians Procedure: Left total knee replacement Same procedure as scheduled: Yes Indications: The patient has had progressively worsening left knee pain with radiographic changes consistent with arthritis. Non-operative management has failed and the patient has requested total knee replacement. The risks, benefits and alternatives to surgery were discussed with the patient prior to proceeding. Risks discussed included, but were not limited to, failure to relieve pain, stiffness, infection, nerve damage, deep venous thrombosis, pulmonary embolism, stroke, coma, heart attack, permanent paralysis and , as well as the potential need for eventual revision of the prosthetic. Surgeon: Honorio Suarez Social Service Coordinator: Feliciano Jackson Click Yes if Unassisted: No Anesthesia Type: General and Local Operative Notes Findings: Severe medial and moderate patellofemoral osteoarthritis with relative preservation of the lateral compartment. Closure Type: primary Specimen(s): none sent Prosthetic devices, grafts, tissues, transplants, or devices: Implants used in this procedure were manufactured by the [employer] and [employer] and included the BCS II Journey total knee replacement with a size 6 cobalt chromium femur, a size 6 non porous tibial base plate, a 10 mm cross-linked polyethylene tibial insert and a 35 mm oval Wilda II patella. Applied: implant(s) Estimated Blood Loss (mL): 25 Blood products transfused: none Tourniquet time (min): 51 Procedure in detail: The patient was seen in the pre-operative area, where the left knee was identified as the operative site and this was marked with my initials. The patient received pre-operative antibiotics, and was taken to the operating room and placed on the operative table in the supine position. After satisfactory anesthesia, a daytime babysitter out was performed. The left leg was encircled with a tourniquet about the proximal thigh, and the leg was prepared from the toes to the tourniquet with ChloroPrep in the usual fashion and draped through sterile drapes. The leg was elevated and exsanguinated with Eschmark bandage and the tourniquet inflated to 250 mmHg pressure. The knee was approached through an approximately 18 cm incision centered over the patella and carried into the knee through a medial parapatellar arthrotomy. The anterior osteophytes and soft tissues were removed. The rotational landmarks of [place]'s line and the transepicondylar axis were marked on the femur with electrocautery, and intramedullary guide holes for the femur and tibia were created. The distal femoral cut was made in 6 degrees of valgus using the intramedullary guide at the primary cut setting. The proximal tibial cut was then made using the intramedullary guide, taking 9 mm of bone off the less involved side. The extension gap was checked and the rotation of the femoral component confirmed with the gap balancing blocks. The anterior, posterior and chamfer cuts were then made. The posterior osteophytes and soft tissues were then removed. The posterior capsule was injected with part of a mixture of 60 ml 0.25% Marcaine mixed with 20 ml Exparel and 4 mg of morphine for post-operative pain control. The remainder of this mixture was injected into the capsule and subcutaneous tissues during cement curing. The tibia was prepared with the rotation set by an extra medullary guide. Trial tibial and femoral components were then placed and the intercondylar notch cut through the femoral trial. Range of motion was 0-135 degrees, with good stability throughout the range. The patella was then cut to accommodate the patellar prosthetic. There was no need for a lateral release. The trials were then removed, and the femoral hole plugged with a bone plug. The bone was prepared with pulsatile lavage, and dried with a sponge. Cement was applied and the final prosthetics placed. Excess cement was removed during and after cement curing. After confirming there was no extruded cement posteriorly, the final tibial insert was placed. The knee was copiously irrigated and the tourniquet deflated. Hemostasis was obtained. The capsule was closed with interrupted # 2 polyester sutures. The subcutaneous layer was closed with 3-0 Vicryl, and the skin with a running 3-0 V-Lock suture and Dermabond. An Aquacel Ag dressing was applied and the patient was taken to recovery having tolerated the procedure well. Complications: none Post-operative Condition: stable Disposition: PACU Plan for aftercare: The patient will be maintained on a standard total knee replacement protocol with weight bearing as tolerated. The patient will receive aspirin and sequential compression devices for DVT prophylaxis. The patient will be discharged home when safe for the home environment.
[2020-08-30] MEDS: fentaNYL 100 MCG/2 ML INJ IV (15:29)
[2020-08-30] MEDS: HYDROMORPHONE 2 MG INJ IV (15:53)
--- NOTE | 2020-08-30 15:53 | SUR.PHASEI ---
Pt with positive sensation and strength to bilateral lower extremities.
[2020-08-30] MEDS: OXYCODONE IR 5 MG TABLET PO ×2 (16:04→21:23)
[2020-08-30] MEDS: ALBUTEROL/IPRATROPIUM 3 ML AMPUL INH (20:11)
[2020-08-30] MEDS: BUDESONIDE 0.5 MG/2 ML NEB INH (20:11)
[2020-08-30] MEDS: ACETAMINOPHEN 325 MG TABLET 650 MG PO (21:22)
[2020-08-30] MEDS: PANTOPRAZOLE DR 40 MG TABLET PO (21:23)
[2020-08-30] MEDS: ASPIRIN EC 81 MG TABLET PO (21:23)
[2020-08-30] MEDS: DOCUSATE 100 MG CAPSULE PO (21:23)
[2020-08-30] MEDS: IBUPROFEN 400 MG TABLET PO (21:23)
[2020-08-31] VITALS (9 sets, daily range): BP systolic 95–125; BP diastolic 57–70; PULSE 78–89; RESP 14–20; TEMP 36.2–36.9; O2SAT 91–95
[2020-08-31] MEDS: IBUPROFEN 400 MG TABLET PO ×6 (01:35→21:30)
[2020-08-31] MEDS: OXYCODONE IR 5 MG TABLET PO ×5 (01:35→21:30)
--- NOTE | 2020-08-31 03:36 | PC.NURSE ---
Pt unable to void since just before surgery. Stood Pt 2 different times to assist with voiding but Pt was unsuccessful. Encouraged fluid intake without change. Pt has a previous hx of Prostate CA and states this (inability to pee) has happened before and resolved eventually without intervention. Re-bladder scanned Pt with result of 555mls present. Attempted to straight cath without success, tried red rubber cath without success, and tried a coudet as well without success. Contacted Dr. Suarez to notify about lack of output. Dr. Suarez stated he would order a Urology consult in the am and requested Pt get a now dose of Flomax 0.8mg and then 0.4mg thereafter.
[2020-08-31] MEDS: LACTATED RINGERS 1,000 ML 100 ML IV (03:47)
[2020-08-31] MEDS: TAMSULOSIN 0.4 MG CAPSULE 0.8 MG PO (03:47)
[2020-08-31 05:22] LABS: Hematocrit 36.2 % (41-53); Hemoglobin 11.8 g/dL (13.5-17.5)
[2020-08-31] MEDS: ALBUTEROL/IPRATROPIUM 3 ML AMPUL INH ×2 (08:16→19:43)
[2020-08-31] MEDS: BUDESONIDE 0.5 MG/2 ML NEB INH ×2 (08:17→19:43)
--- NOTE | 2020-08-31 08:33 | P.DS_ITS ---
History of Present Illness History of Present Illness Date Patient Seen: 08/31/20 Time Patient Seen: 08:33 Chief complaint: *OPB* Narrative: Pain is mild. Denies fever or chills. No nausea or vomiting. Patient does have assistance at home. Patient difficulty voiding this morning. Patient required straight catheterization. Patient has been able to urinate on his own x2 this morning. Otherwise without complaints. Discharge Providers Provider Discharge Date: 08/31/20 Primary care physician: Blas Vargas MD Consults: 08/30/20 15:13 Consult to Discharge Planning Routine Comment: Consult to Physical Therapy Evaluate & Treat Comment: Physician Instructions: postop TKA protocol Consult to Respiratory Therapy Evaluate & Treat Comment: Physician Instructions: Evaluate and treat Discharge provider: Feliciano Jackson PA-C Summary Hospital Course Discharge Diagnosis: Left knee osteoarthritis new line urinary retention with history of prostate cancer Hospital Course: Left total knee replacement Same procedure as scheduled: Yes Indications: The patient has had progressively worsening left knee pain with radiographic changes consistent with arthritis. Non-operative management has failed and the patient has requested total knee replacement. The risks, benefits and alternatives to surgery were discussed with the patient prior to proceeding. Risks discussed included, but were not limited to, failure to relieve pain, stiffness, infection, nerve damage, deep venous thrombosis, pulmonary embolism, stroke, coma, heart attack, permanent paralysis and , as well as the potential need for eventual revision of the prosthetic. Surgeon: Honorio Suarez African Studies Professor: Feliciano Jackson Click Yes if Unassisted: No Anesthesia Type: General and Local Operative Notes Findings: Severe medial and moderate patellofemoral osteoarthritis with relative preservation of the lateral compartment. Closure Type: primary Specimen(s): none sent Prosthetic devices, grafts, tissues, transplants, or devices: Implants used in this procedure were manufactured by the [employer] and [employer] and included the BCS II Journey total knee replacement with a size 6 cobalt chromium femur, a size 6 non porous tibial base plate, a 10 mm cross-linked polyethylene tibial insert and a 35 mm oval Wilda II patella. Applied: implant(s) Estimated Blood Loss (mL): 25 Blood products transfused: none Tourniquet time (min): 51 Patient admitted to the hospital for the above-mentioned procedure. Patient consented to the same. Patient taken the operating room underwent left total knee arthroplasty yesterday. Patient back in his room recovering as well in stable condition. At 3:00 a.m. this morning patient was unable to void had a postvoid residual of 550 mL. Patient required straight catheterization. Patient was placed on Flomax. Patient has been able to urinate twice this morning. Patient will work with physical therapy. Weightbearing as tolerated. Discharge home after physical therapy. Status at Discharge Cognitive/behavioral status at discharge: at baseline, oriented Functional status at discharge: uses cane/walker Overall status at discharge: patient is progressing back to baseline Time Spent with Patient Time spent: Less than 30 minutes Exam Vital Signs (past 8 hours): - 08/31/20 03:31 Temperature 98.3 F Pulse Rate 78 Respiratory Rate 18 Blood Pressure 103/67 Pulse Oximetry 95 Fraction of Inspired Oxygen 32 Oxygen Delivery Method Nasal Cannula Oxygen Flow Rate 2 Narrative Exam Narrative: 69-year-old male resting comfortably in bed in no apparent distress. Left knee dressing is clean, dry and intact. Motor functions intact bilateral lower extremities. Sensation grossly intact to light touch bilateral lower extremities. Objective Labs Result Diagrams: 08/31/20 05:10 Labs: Laboratory Results - last 24 hr 08/31/20 05:10 Hgb 11.8 L Hct 36.2 L [facility] Medical History Acquired insufficiency of aortic valve (10/08/15) Asthma Cellulitis (~02/2020) Chronic obstructive pulmonary disease (01/19/11) Cobalamin deficiency CTS (carpal tunnel syndrome) Duodenal ulcer Eczema Elevated d-dimer (~02/2020) Essential hypertension Former smoker Gastric ulcer History of malignant neoplasm of prostate Hypothyroidism (08/21/14) Idiopathic peripheral neuropathy Leukocytosis (01/19/11) Low back pain of over 3 months duration (11/15/16) Obesity (01/19/11) Olecranon bursitis of left elbow Osteoarthritis Prostate cancer (2010) Thrombocytosis (01/19/11) Unilateral primary osteoarthritis, right knee Weakness of right lower extremity (11/15/16) Surgical History History of arthroplasty of right knee (05/24/20) History of spinal fusion (2012) History of splenectomy (1975) Status post cataract extraction of both eyes with insertion of intraocular lens Status post wrist surgery (2011) Family History Brother Thyroid cancer Mother Breast cancer Father No problems noted. 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 Urinary retention requiring straight catheterization and now able to void on his own with Flomax. Plan of Treatment: Weightbearing as tolerated. Aspirin for DVT prophylaxis. Flomax daily for the next 5 days. Follow-up with primary and or urology if symptoms persist. Discharge Plan Discharge Plan Patient Disposition: Home Provider Discharge Comment: DC home after PT Discharge orders & Medications Discharge Orders: Discharge (Order); Ordered 08/31/20 Ordered By: Feliciano Jackson Prescriptions: New acetaminophen 325 mg Tablet 650 mg PO TID Qty: 60 RF: 0 aspirin 81 mg Tablet,Delayed Release (Dr/Ec) 81 mg PO BID Qty: 60 RF: 0 ibuprofen 400 mg Tablet 400 mg PO Q4HR Qty: 60 RF: 0 docusate sodium [DOK] 100 mg Capsule 100 mg PO BID Qty: 20 RF: 0 oxycodone 5 mg Tablet 5 mg PO Q3HR PRN (Reason: Pain, Moderate (4-6)) Qty: 60 RF: 0 tamsulosin [Flomax] 0.4 mg Capsule 0.4 mg PO DAILY Qty: 5 RF: 0 Continued cyanocobalamin (vitamin B-12) 1,000 MCG tablet extended release 1,000 mcg PO QDAY Qty: 0 RF: 0 albuterol sulfate [Proventil HFA] 90 mcg/actuation HFA aerosol inhaler 2 puff INHALATION Q4HP PRN (Reason: shortness of breath or wheezing) Qty: 2 RF: 3 Alvesco 160 mcg/actuation HFA aerosol inhaler 2 puff INHALATION BID Qty: 6.1 RF: 11 potassium chloride [Klor-Con M20] 20 mEq tablet,ER particles/crystals 20 meq PO DAILY Qty: 30 RF: 11 omeprazole 40 mg capsule,delayed release(DR/EC) 40 mg PO BID Qty: 60 RF: 11 duloxetine 30 mg capsule,delayed release(DR/EC) 30 mg PO DAILY Qty: 90 RF: 3 levothyroxine 150 mcg tablet See Rx Instructions .ROUTE .COMPLEX Qty: 90 RF: 1 chlorthalidone 25 mg tablet 50 mg PO QDAY Qty: 180 RF: 1 diphenhydramine HCl [Allergy (diphenhydramine)] 25 mg capsule 25 mg PO Q4-6H PRN (Reason: Itching) RF: 0 fluticasone propionate 50 mcg/actuation spray,suspension 2 spray NASAL BEDTIME PRN (Reason: Allergy Symptoms) RF: 0 Combivent Respimat 20-100 mcg/actuation mist 1 puff INHALATION BID RF: 0 Follow up/Referrals: Blas Vargas MD [Primary Care Provider] - Honorio Suarez MD [Physician] - (Two weeks) Diet/Activity/Treatments Diet: Diet as Tolerated Activity: Weight-bearing as tolerated Cold/Heat Therapy: Apply ice to knee as needed Skin/Wound/Dressing Care Report to your healthcare provider any signs of infection, such as:: chills, fever, increased pain, unusual drainage and unusual redness Dressing: Keep dressing clean and dry. May remove Tim wrap in 2-3 days, leave dressing in place Visit Report/Discharge Packet Instructions: DI for Knee Replacement Stand Alone Forms: Surgery Discharge Discharge Data Primary Care Provider: Blas Vargas Attending Provider: Honorio Suarez
[2020-08-31] MEDS: polyethylene glycoL 3350 17 GM POWD.PACK PO (09:32)
[2020-08-31] MEDS: ASPIRIN EC 81 MG TABLET PO ×2 (09:32→21:30)
[2020-08-31] MEDS: ACETAMINOPHEN 325 MG TABLET 650 MG PO ×3 (09:33→21:30)
[2020-08-31] MEDS: DULOXETINE 30 MG CAPSULE PO (09:33)
[2020-08-31] MEDS: PANTOPRAZOLE DR 40 MG TABLET PO ×2 (09:33→21:30)
[2020-08-31] MEDS: CHLORTHALIDONE 25 MG TABLET 50 MG PO (09:34)
[2020-08-31] MEDS: DOCUSATE 100 MG CAPSULE PO ×2 (09:34→21:30)
[2020-08-31] MEDS: POTASSIUM CHLORIDE 20 MEQ TAB PO (09:35)
[2020-08-31] MEDS: CYANOCOBALAMIN (VITAMIN B-12) 500 MCG TABLET 1000 MCG PO (09:35)
--- NOTE | 2020-08-31 10:20 | PT.IIE ---
Current Diagnoses Unilateral primary osteoarthritis, left knee (08/30/20) Surgery Performed Operation Date: 08/30/20 12:15 Actual Procedures p Total Knee Arthroplasty(Left) - Honorio Suarez MD Surgical History (Last Reviewed 08/31/20 @ 08:38 by Feliciano Jackson PA-C) History of arthroplasty of right knee (05/24/20) History of spinal fusion (2012) History of splenectomy (1975) Status post cataract extraction of both eyes with insertion of intraocular lens Status post wrist surgery (2011) Medical History (Last Reviewed 08/31/20 @ 08:38 by Feliciano Jackson PA-C) Acquired insufficiency of aortic valve (10/08/15) Asthma Cellulitis (~02/2020) Chronic obstructive pulmonary disease (01/19/11) Cobalamin deficiency CTS (carpal tunnel syndrome) Duodenal ulcer Eczema Elevated d-dimer (~02/2020) Essential hypertension Former smoker Gastric ulcer History of malignant neoplasm of prostate Hypothyroidism (08/21/14) Idiopathic peripheral neuropathy Leukocytosis (01/19/11) Low back pain of over 3 months duration (11/15/16) Obesity (01/19/11) Olecranon bursitis of left elbow Osteoarthritis Prostate cancer (2010) Thrombocytosis (01/19/11) Unilateral primary osteoarthritis, right knee Weakness of right lower extremity (11/15/16) Physical Therapy Inpatient Evaluation/Re-Eval M1 PT/OT-IP Prior Functional Status Start: 08/31/20 08:41 Freq: NEEDED Status: Active Protocol: Document 08/31/20 10:20 AW (Rec: 08/31/20 11:08 AW [id number]) Medical Review Prior Functional Status Medical History Reviewed Yes Communication WNL Mobility and Gait Pt had R TKA in May 2020. Within 24 hours of discharging, he slid from his bed and landed on his buttocks , needing to call EMS to assist him up. Pt denies other falls since May surgery, but has a history of multiple falls - one of which resulted in left proximal humerus fracture. He has peripheral neuropathy affecting bilateral feet. Activities of Daily Living and IADL's Independent. 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 Prior Functional Level (Other details) Pt has history of CAD and COPD . He does not use O2 at home. Social History Household Members none Living Arrangements House Number of Floors (Floors) Two Floors Number of Stairs To Enter/Railing? Back entrance has 2 NIKOLAY with L rail ascending. Inside, there are 15 steps with landing shelter up and left rails all the way. Pt will stay on the direct entry midwife guest room at discharge. He has a tub shower on main level and a walk in shower upstairs. Home Environment Standard Height Toilet,Walk in Shower Home Equipment Front Wheel Walker,Quad Cane, Raised Toilet Seat w/Armrests, Shower Seat without Backrest, Hand Held Shower,Lift Recliner Additional Social History Comment Pt has a cryocuff at home. He lives alone but his brother , Blas, will take him home and stay with him until . At that time, another friend is planning to stay with him for a few weeks. M2 PT-IP Current Condition Start: 08/31/20 08:41 Freq: NEEDED Status: Active Protocol: Document 08/31/20 10:20 AW (Rec: 08/31/20 11:08 AW [id number]) Physical Therapy Current Condition Current Condition Evaluation Date 08/31/20 Treatment Diagnosis L TKA; difficulty in walking Onset Date 08/30/20 Precautions Other Precautions falls Weight Bearing Status Weight Bearing Status Weight Bear as Tolerated M3 PT-IP Subjective Start: 08/31/20 08:41 Freq: NEEDED Status: Active Protocol: Document 08/31/20 10:20 AW (Rec: 08/31/20 11:08 AW [id number]) Subjective Physical Therapy Visit Type Type Initial Evaluation Visit Start Time 09:45 Visit Stop Time 10:20 Total Visit Minutes 35 Number of BATTING MACHINE OPERATOR INSULATION Visits 0 Physical Therapy Visit Comments Patient Comments Pt is willing to participate with PT Patient Goals Return home with family and friends providing support. Therapy Pain Assessment Pain When Pain Assessed During Mobility Pain Present Pain Present Pain Reported Location right knee Intensity 7 Scale Used 5/10 at rest; increased with mobility Pain Management Techniques Apply Cold,Re-positioning, Timing of Activity with Medications M4 PT-IP Mobility and Gait Start: 08/31/20 08:41 Freq: NEEDED Status: Active Protocol: Document 08/31/20 10:20 AW (Rec: 08/31/20 11:08 AW [id number]) PT-Bed Mobility Assessment Supine to Sit Supine to Sit Minimal Assistance,1 Person Assistance Scooting Scooting to Edge of Bed Standby Assistance PT-Transfer Assessment Sit to and From Stand Sit to and from Stand Minimal Assistance,Moderate Assistance,1 Person Assistance ,Use of Upper Extremities Equipment Transfer Assistive Device Gait Belt,Front Wheeled Walker Orthotic/Prosthetic Devices or Brace: No Transfers Transfer Destination Bed,Chair,Wheelchair Transfer Technique Stand Step Pivot Transfer Ability Level of Assist Contact Guard Assistance, Minimal Assistance,1 Person Assistance,Use of Upper Extremities Comments Mobility Comments Pt was sitting up in bed as PT arrived. BP 116/81 HR 84 SpO2 94% on 1L/NC. He used his RLE to lift LLE to the left side of the bed but needed min assist to support leg until foot could rest on the floor. He denied lightheadedness and BP was stable. Removed O2 and SpO2 was stable. Pt needed min assist to stand and he used the FWW to ambulate around the room a total of 30 feet CGA. He then stopped at the sink to brush his teeth, demonstrating good standing balance. He transferred to the chair CGA and then agreed to try stairs. He stood from the chair mod assist and ambulated 15 feet to the w/c, transferring min assist. He was wheeled down to the stairs for stair training. On return to the room, he transferred w /c to chair CGA and was positioned with legs elevated, fresh ice applied. SpO2 was 90% on room air. RT arrived to assess and pt was left with RT. Gait Assessment Gait Gait Assistance Required: Contact Guard Assist Distance (Feet) 30 Able to Maintain Weight Bearing Status Yes During Gait Assistive Devices Assistive Device Gait Belt,Front Wheeled Walker Orthotic/Prosthetic Devices or Brace: No Gait Deviations General Gait Pattern Antalgic,Decreased Stride Length,Decreased Feet Clearance,Flexed Trunk,Step-to Gait,Wide Based Gait Factors Limiting Gait Function Factors Limiting Gait Function Decreased Activity Tolerance, Decreased Sensation,Decreased Strength,Limited Range of Motion,Pain,Poor Balance, Respiratory Distress Comments Gait Comments Quality of gait was poor with pt lacking ~5-10 degrees extension of the left knee. He depended heavily on the walker for weightbearing. Stair Climbing Assessment Evaluation Level of Assist On Stairs Minimal Assistance,1 Person Assistance Devices Stair Climbing Assistive Devices Left Railing Technique/Endurance Stair Climbing Direction Ascend and Descend Stair Climbing Technique Step Over Step Number of Steps Climbed 3 Query Text: Stair Climbing Set # Repetitions (reps) 2 Comments Stair Climbing Comments First set completed with B rails CGA. Second set with R rail only and min assist/PROGRAM DIRECTOR on the opposite side. Pt states his brother will be able to assist with stairs to enter the house at discharge and he will stay on the main level. PT-Balance Assessment Sitting Balance and Reactions Static Sitting Balance Ability Good Dynamic Sitting Balance Ability Good Standing Balance and Reactions Static Standing Balance Ability Fair Dynamic Standing Balance Ability Fair Device Used FWW Balance Tests Single Limb Standing RLE 3 sec M5 PT-IP Objective Assessments Start: 08/31/20 08:41 Freq: NEEDED Status: Active Protocol: Document 08/31/20 10:20 AW (Rec: 08/31/20 11:08 AW [id number]) Orientation Orientation/Cognition Level of Alertness Alert Orientation Name,Day of Week,Place, Situation Language Function Ability No Deficits Noted Safety Awareness Decreased Safety Awareness Memory Description No Deficits Noted Gross Range of Motion Lower Extremity ROM Assessment Right Impaired Impairments knee 5-85 Strength Lower Extremity Strength Assessment Left Impaired Hip 3+/5 Knee 3-/5 Ankle 4-/5 Comments Strength Comments RLE grossly 4/5 except knee flexion 4+/5 Sensation Assessment Sensation Gross Sensation Right LE Impaired,Left LE Impaired Light Touch Impaired Proprioception (Position) Impaired Sensation Description Numbness Comments Sensation Comments Idiopathic peripheral neuropathy affecting sensation in bilateral feet with plantar surfaces most affected . M6 PT-IP Treatment Start: 08/31/20 08:41 Freq: NEEDED Status: Active Protocol: Document 08/31/20 10:20 AW (Rec: 08/31/20 11:08 AW [id number]) Physical Therapy Treatment Exercises Exercises Ankle Pumps,Quad Sets,Heel Slides,Passive Knee Extension Hang Education Education Provided Precautions,Weight Bearing Status,Post-Op Packet,Safety Other Treatments Other Treatment Performed Educated pt on PT plan of care , weightbearing status, and safe use of FWW. M7 PT-IP Assessment and Plan Start: 08/31/20 08:41 Freq: NEEDED Status: Active Protocol: Document 08/31/20 10:20 AW (Rec: 08/31/20 11:08 AW [id number]) PT Summary Assessment and Plan Potential Rehabilitation Potential Good Status of Condition at Evaluation Evolving Summary Impairments Pain,ROM,Strength,Balance, Sensation,Bed Mobility, Transfers,Gait,Activity Tolerance Assessment Summary Tanenr is a 69 yo man seen for PT evaluation on POD1 following L TKA. He had R TKA 3 months ago and reports he was no longer using any AD before surgery. Pt has history of multiple falls over the past year including one which resulted in left humerus fracture. He reports one fall since his R TKA. On evaluation , pt required min to mod assist with mobility and was limited by pain and impaired left knee range of motion. He will need to progress his mobliity independence before safe discharge home. He has planned for his brother to stay with him for two days and then for a friend to stay with him a few weeks after that. Goals Bed Mobility Goal Standby Assistance Transfer Goal Standby Assistance,Front Wheeled Walker Gait Goal Standby Assistance,Front Wheel Walker Gait Distance 125 Other Goals up/down two steps with L rail ascending CGA Days to Meet Goals 3 Frequency of Treatment Frequency Of Treatment Twice a Day Treatment Plan Physical Therapy Treatment Plan Bed Mobility Training,Transfer Training,Gait Training, Therapeutic Exercise,Balance Retraining,Post Op Education, Discharge Planning,Hot or Cold Pack Other Recommendations and Next Treatment don shoes for ambulation; Focus transfers and gait training with FWW Precautions Other Precautions WBAT LLE; falls Recommendations To Nursing Amount of Assist Needed 1 Person Assist Discharge Recommendations PT Discharge Recommendations Home with Assistance, Outpatient PT Transportation Needs at Discharge Private Vehicle
[2020-08-31] MEDS: OXYCODONE IR 10 MG TABLET PO (12:26)
--- NOTE | 2020-08-31 13:35 | PT.IPTN ---
Current Diagnoses Unilateral primary osteoarthritis, left knee (08/30/20) Surgery Performed Operation Date: 08/30/20 12:15 Actual Procedures p Total Knee Arthroplasty(Left) - Honorio Suarez MD Physical Therapy Treatment Note M2 PT-IP Current Condition Start: 08/31/20 08:41 Freq: NEEDED Status: Active Protocol: Document 08/31/20 10:20 AW (Rec: 08/31/20 11:08 AW [id number]) Physical Therapy Current Condition Current Condition Evaluation Date 08/31/20 Treatment Diagnosis L TKA; difficulty in walking Onset Date 08/30/20 Precautions Other Precautions falls Weight Bearing Status Weight Bearing Status Weight Bear as Tolerated M3 PT-IP Subjective Start: 08/31/20 08:41 Freq: NEEDED Status: Active Protocol: Document 08/31/20 13:51 SP (Rec: 08/31/20 15:58 SP [id number]) Subjective Physical Therapy Visit Type Type Treatment Note Visit Start Time 13:12 Visit Stop Time 13:35 Total Visit Minutes 23 Notes SOLUTION MIXER coordinated earlier via inhouse phone at 1200 to have brother attend tx today for caregiver training, brother or friend were not in attendance when arrived. Number of SOLUTION MIXER Visits 1 Physical Therapy Visit Comments Patient Comments Pt was willing to participate in PT and stated was recently premedicated for pain control. Patient Goals Return home with family and friends providing support. Therapy Pain Assessment Pain When Pain Assessed During Mobility Pain Present Pain Present Pain Reported Location Left Knee Intensity 7 Scale Used Numeric (0 - 10) Description With Movement Pain Behaviors Facial Grimacing Pain Management Techniques Apply Cold,Re-positioning, Timing of Activity with Medications M4 PT-IP Mobility and Gait Start: 08/31/20 08:41 Freq: NEEDED Status: Active Protocol: Document 08/31/20 13:51 SP (Rec: 08/31/20 15:58 SP [id number]) PT-Transfer Assessment Sit to and From Stand Sit to and from Stand Standby Assistance,Contact Guard Assistance,1 Person Assistance,Use of Upper Extremities Equipment Transfer Assistive Device Gait Belt,Front Wheeled Walker Orthotic/Prosthetic Devices or Brace: No Transfers Transfer Destination Chair,Toilet,Wheelchair Transfer Technique pt ambulated using FWW Transfer Ability Level of Assist Standby Assistance,Contact Guard Assistance,1 Person Assistance,Use of Upper Extremities Comments Mobility Comments Pt was up in chair when arrived with report was recently premedicated. Sit> stand from chair able to come to standing on 2nd attempt using BUE on chair arms CGA. Pt ambulated into hallway using FWW CGA> SBA with cuing for L knee flexion during swing phase and heel toe to w/ c in hallway. Pushed pt down to stairs. Completed stair mgt using L HR and SPC in RUE Min A x1 with max cuing for proper patterning each step, tends to lead with surgical LLE. Pt able to walk futher in hallway approx 60 ft using fWW SBA w/ w/c follow secondary to decreased strength and activity tolerance. When returned to room ambulated to bathroom sBA usign fWW, SPT in bathroom w/ proper positioning of fWW, cued for use of grab bar on L for stability and toilet RUE SBA. Pt was able to urinate with dark yellow in color, self hygiene in sitting. Pt ambulated back to chair with good safety hand placement. Assisted leg rest elevation and reapply cold pack to L knee for pain control 7-11/16 durign activitiy reported. Pt had call light and all needs in reach. Gait Assessment Gait Gait Assistance Required: Contact Guard Assist Distance (Feet) 60 Able to Maintain Weight Bearing Status Yes During Gait Assistive Devices Assistive Device Gait Belt,Front Wheeled Walker Orthotic/Prosthetic Devices or Brace: No Gait Deviations General Gait Pattern Antalgic,Decreased Stride Length,Decreased Feet Clearance,Flexed Trunk,Step-to Gait,Wide Based Gait Factors Limiting Gait Function Factors Limiting Gait Function Decreased Activity Tolerance, Decreased Sensation,Decreased Strength,Limited Range of Motion,Pain,Poor Balance, Respiratory Distress Comments Gait Comments Pt ambulated 15 ft, 60 ft, 20 ft, 8 ft using FWW CGA>SBA. Stair Climbing Assessment Evaluation Level of Assist On Stairs Minimal Assistance,1 Person Assistance Devices Stair Climbing Assistive Devices Straight Cane,Left Railing Technique/Endurance Stair Climbing Direction Ascend and Descend Stair Climbing Technique Step Over Step Number of Steps Climbed 3 Stair Climbing Set # Repetitions (reps) 2 Comments Stair Climbing Comments Pt able ascend/descend 6 stairs L HR and SPC in RUE, step to patterning with max cuing for lead non surgical ascending, Surgical descending and Min A. PT-Balance Assessment Sitting Balance and Reactions Static Sitting Balance Ability Good Dynamic Sitting Balance Ability Good Standing Balance and Reactions Static Standing Balance Ability Fair Dynamic Standing Balance Ability Fair Device Used FWW M5 PT-IP Objective Assessments Start: 08/31/20 08:41 Freq: NEEDED Status: Active Protocol: Document 08/31/20 10:20 AW (Rec: 08/31/20 11:08 AW [id number]) Orientation Orientation/Cognition Level of Alertness Alert Orientation Name,Day of Week,Place, Situation Language Function Ability No Deficits Noted Safety Awareness Decreased Safety Awareness Memory Description No Deficits Noted Gross Range of Motion Lower Extremity ROM Assessment Right Impaired Impairments knee 5-85 Strength Lower Extremity Strength Assessment Left Impaired Hip 3+/5 Knee 3-/5 Ankle 4-/5 Comments Strength Comments RLE grossly 4/5 except knee flexion 4+/5 Sensation Assessment Sensation Gross Sensation Right LE Impaired,Left LE Impaired Light Touch Impaired Proprioception (Position) Impaired Sensation Description Numbness Comments Sensation Comments Idiopathic peripheral neuropathy affecting sensation in bilateral feet with plantar surfaces most affected . M6 PT-IP Treatment Start: 08/31/20 08:41 Freq: NEEDED Status: Active Protocol: Document 08/31/20 13:51 SP (Rec: 08/31/20 15:58 SP [id number]) Physical Therapy Treatment Education Education Provided Precautions,Weight Bearing Status,Post-Op Packet,Safety Other Treatments Other Treatment Performed Educated pt on weightbearing status, safety sequencing during stair mgt and proper LE leading. M7 PT-IP Assessment and Plan Start: 08/31/20 08:41 Freq: NEEDED Status: Active Protocol: Document 08/31/20 13:51 SP (Rec: 08/31/20 15:58 SP [id number]) PT Summary Assessment and Plan Potential Rehabilitation Potential Good Status of Condition at Evaluation Evolving Summary Impairments Pain,ROM,Strength,Balance, Sensation,Bed Mobility, Transfers,Gait,Activity Tolerance Progress Towards Goals Progressing Toward Goals,Slow Progress due to Pain,Slow Progress due to Activity Tolerance Assessment Summary Pt required CGA- SBA during sit<>stand, sBA during gait and min during stair mgt with safety cuing sequencing LEs. Pt's obesity may contribute to difficulty on stairs mgt requiring increased suppport, he is limited by pain and impaired left knee range of motion. He will need to progress his mobliity independence before safe discharge home. He has planned for caregiver training [id number] with his brother who will stay with him for two days and then for a friend to stay with him a few weeks after that. Recommending further acute skilled PT. Will continue to assess progress. Goals Bed Mobility Goal Standby Assistance Transfer Goal Standby Assistance,Front Wheeled Walker Gait Goal Standby Assistance,Front Wheel Walker Gait Distance 125 Other Goals up/down two steps with L rail ascending CGA Days to Meet Goals 3 Frequency of Treatment Frequency Of Treatment Twice a Day Treatment Plan Physical Therapy Treatment Plan Bed Mobility Training,Transfer Training,Gait Training, Therapeutic Exercise,Balance Retraining,Post Op Education, Discharge Planning,Hot or Cold Pack Other Recommendations and Next Treatment Don shoe for ambulation, Focus caregiver training with brother: stairs, gait, transfers, bed mobility Precautions Other Precautions WBAT LLE; falls Recommendations To Nursing Amount of Assist Needed 1 Person Assist Discharge Recommendations PT Discharge Recommendations Home with Assistance, Outpatient PT Transportation Needs at Discharge Private Vehicle
[2020-08-31] MEDS: hydrOXYzine pamoate 25 MG CAPSULE PO (16:33)
--- NOTE | 2020-08-31 17:22 | CM.DANOTE ---
DCP ASSESSMENT: Patient is a 69 year-old male admitted for a LTKA. PCP is Dr. Vargas. Primary Payer is Medicare and AARP. SANDBLASTER PAINT SPRAYER student met with patient at bedside he was alert and oriented. SANDBLASTER PAINT SPRAYER provided education on role of social work in discharge planning. Patient reports he has a FWW and cane at baseline. He reported his brother Blas Hauser is helping him coordinate in-home care through [facility]. Patient gave permission to call brother and to see if he needed any as stance. Tried called there was no answer, left message. Per Doctor Erick history and physical note it indicates a need for Home Health services: nursing, occupational and physical therapy. Patient is aware of need for Home Health and has utilized [facility] in the past. Initiated Home Health with [facility] for services faxed clinicals, orders and [facility] accepted and is waiting for a D/C date. Anticipate D/C home with home health, care givers and family friend support. PLAN: Anticipate D/C home with [facility]. CM Team to provide [facility] with D/C date and will continue to follow. EDITH Figueroa MSW Student Discharge Planning/Care Management CM Discharge Assessment Start: 08/31/20 11:07 Freq: Status: Active Protocol: Document 08/31/20 11:07 AL (Rec: 08/31/20 11:12 AL [id number]) Discharge Planning Assessment Assigned Rubber And Pounder EDITH Aceves Student Contact Information kristi Mcclain . Blas Hauser, [phone] Advance Directives? No Advance Directives on File No History Provided By Patient,Medical Record Has Patient been admitted in last 30 No days? Prior Living Arrangements House Comment Has a friend Marcio Kinsey who stays with him at night Household Members none Comment Has a friend Marcio Kinsey who stays with him at night Type of transporation used prior to Relies on Others admit Independent with ADL's No Is patient alert and oriented? Yes Needs Assistance With Meal Prep,Home Chores / Shopping Caregiver for Another No DME Already Rented / Owned FWW / Walker,Cane Patient/Family Preference Home with Home Health,OP PT Therapy,OP OT Therapy Comment Called and scheduled [facility] Barriers to Discharge No Discharge Plan Home Transportation Arrangement Girlfriend Josi to provide transport home at d/c. Referrals Initiated None needed Additional Comment Patient reports he has [facility] assistance for 8 hours per day and a friend Marcio Kinsey stays with him in the evenings. If patient plan is home with home health Yes : Has signed face to face form been completed? Whiteboard Updated in Patient Room with Yes name and ext. # of Rubber And Pounder Review Status In Process Pre-Anesthesia Assessment Start: 08/27/20 10:53 Freq: Status: Complete Protocol: Document 08/27/20 10:53 CAB (Rec: 08/27/20 11:07 CAB [id number]) Pre-Anesthesia Assessment PAC Comment Pt declined PAC phone assessment, s/p RT TKA 05/24/20 WBC 12.5, platelets 550, EST 64 on labs 08/06/20 Preferred Name [facility] Patient Information Reviewed Via Chart Review H&P Completed Within 30 Days Yes Diagnostic Results BMP/CMP,CBC,EKG Comment Labs/EKG @ , Last COVID identified @ [facility] 08/25/20 Primary Care Provider Blas Vargas Seen Specialist in Last 12 Months Yes Specialist Seen Orthopedist Primary Language [place] Preferred Language [place] Video Software Engineer Required No Height 170.18 cm Weight 110.677 kg Body Mass Index (BMI) 38.2 Hearing Ability Normal Visual Assist Glasses Dentition Type Teeth, Natural Present,Teeth, Missing Barriers to Learning Visual Other Aids No Hx Anesthesia Reactions No Hx Family Anesthesia Reaction No Hx Malignant Hyperthermia No Hx Blood Transfusions Yes Hx Blood Transfusion Reaction No Anesthesia Review Requested No Foreign Exchange Dealer No alcohol intake former alcohol intake frequency holidays/special occasions only Smoking Status Former smoker Tobacco type cigarettes how long ago did patient quit smoking as a teenager Substance Use Type does not use Pain Present Pain Reported Musculoskeletal Symptoms Abnormal Gait,Difficulty Walking,Joint Pain,Joint Stiffness,Limited Range of Motion,Muscle Cramps,Numbness History of Falling (Recent or History of Yes ) Patient is completely paralyzed or No completely immobile Mental Status Oriented to own ability Is patient on oxygen? No Does patient have REED/SOB Yes Hx Sleep Apnea No CPAP/BIPAP use not prescribed Suspected Sleep Apnea Yes Comment Prior STOP/BANG assessment positive Currently Taking a Beta Leonarda No Can You Climb a Flight of Stairs Without Yes SOB Hx Chest Pain No Hx SOB Yes Hx Syncope or Dizziness No Anti-Coagulant Therapy No Hx Pacemaker/ICD No Pacemaker Rep Required? No Diet Type At Home Regular dysphagia No Gastrointestinal Symptoms Diarrhea,Reflux Bladder Pattern Hesitancy,Nocturia Urinary Catheter Present No Hx Urinary Self Catheterization No Diabetes No HgbA1C 5.8 Date 08/06/20 Hx Drug Resistant Organism No Presence of External or Internal Medical Yes: Cervical, right knee, Devices bilat eyes Marital Status Single Lives With none Prior Living Arrangements House Number of Floors (Floors) Two Floors Support System Family,Friend(s) Does the Patient Have Assistance After Yes Surgery Patient Discharge Plan Description Return Home Feels Safe in Current Environment Yes Been Physically Hurt or Threatened By a No Person in Current Environment Do you have thoughts of harming yourself None or others? Are you currently considering suicide? No Do you have a plan to hurt yourself or No Plan others? Do You Have Any Spiritual Beliefs That No May Affect Your HC Choices? Do You Have Any Cultural Practices That No May Affect Your HC Choices? Comment Confucianist Who Can We Speak to About Patient's Care Friends & family Identifying Code for Release of Patient Declines to issue Information Health Care Proxy/Next of Kin Blas Hauser (brother) retired GP Health Care Proxy Emergency Contact Name Blas Hauser (brother) Emergency Contact Advance Directives? Yes Advance Directives on File No Power of Ip Attorney No Stop Bang Assessment Do you snore loudly (louder than talking No or loud enough to be heard through closed doors) Do you often feel tired, fatigued or Yes sleepy during the daytime Has anyone ever observed you stop No breathing while sleeping? Do you have, or are you being treated Yes for, high blood pressure Is your BMI more than 35 kg/m2 Yes Age over 50 Yes Estimated neck circumference greater No than 40cm or 16in Gender male Yes Result Positive
[2020-09-01] MEDS: IBUPROFEN 400 MG TABLET PO ×3 (00:01→09:00)
[2020-09-01 01:00] VITALS: BP 96/65; PULSE 85; RESP 16; TEMP 36.8; O2SAT 91
[2020-09-01] MEDS: OXYCODONE IR 5 MG TABLET PO ×2 (01:02→04:51)
[2020-09-01 03:00] VITALS: BP 119/64; PULSE 64; RESP 18; TEMP 36.7; O2SAT 92
--- NOTE | 2020-09-01 06:32 | P.DS_ITS ---
History of Present Illness History of Present Illness Date Patient Seen: 09/01/20 Time Patient Seen: 06:33 Chief complaint: *OPB* Narrative: The history and physical is contained in the chart in a previously completed note. Please refer to that note for this information. Discharge Providers Provider Date of admission: 08/31/20 15:08 Discharge Date: 09/01/20 Primary care physician: Blas Vargas MD Consults: 08/30/20 15:13 Consult to Discharge Planning Routine Comment: Consult to Physical Therapy Evaluate & Treat Comment: Physician Instructions: postop TKA protocol Consult to Respiratory Therapy Evaluate & Treat Comment: Physician Instructions: Evaluate and treat 08/31/20 10:31 Consult to Home Health Routine Comment: DX: left TKA Reason For Exam: Home health for PT/OT/community services officer provider: Honorio Suarez MD Summary Hospital Course Discharge Diagnosis: 1. Left knee osteoarthritis 2. Post hemorrhagic anemia 3. Urinary retention Hospital Course: The patient was admitted to the hospital and taken directly to the operating room on August 31, 2020. He underwent a left total knee replacement without difficulty. In the morning of postoperative day 1 he was noted to have urinary retention. He was started on Flomax and the urination proceeded spontaneously. He was initially planned for discharge on postoperative day 1 but did not make enough progress in physical therapy. He will then have train ing with his brother to his system today. He is confident he will be able to go home later in the day today. He has a mild post hemorrhagic anemia which is not severe enough to require active treatment. Status at Discharge Cognitive/behavioral status at discharge: oriented Functional status at discharge: uses cane/walker Overall status at discharge: patient is progressing back to baseline Time Spent with Patient Time spent: Less than 30 minutes Exam Vital Signs (past 8 hours): - 09/01/20 01:00 09/01/20 03:00 Temperature 98.2 F 98.0 F Pulse Rate 85 64 Respiratory Rate 16 18 Blood Pressure 96/65 119/64 Pulse Oximetry 91 92 Fraction of Inspired Oxygen 32 Oxygen Delivery Method Room Air Oxygen Flow Rate 0 Narrative Exam Narrative: Left knee wound is dressed with no drainage on the bandage. Calf is soft. Light touch and motion are intact in the left lower extremity. Objective Labs Result Diagrams: 08/31/20 05:10 [facility] Medical History Acquired insufficiency of aortic valve (10/08/15) Asthma Cellulitis (~02/2020) Chronic obstructive pulmonary disease (01/19/11) Cobalamin deficiency CTS (carpal tunnel syndrome) Duodenal ulcer Eczema Elevated d-dimer (~02/2020) Essential hypertension Former smoker Gastric ulcer History of malignant neoplasm of prostate Hypothyroidism (08/21/14) Idiopathic peripheral neuropathy Leukocytosis (01/19/11) Low back pain of over 3 months duration (11/15/16) Obesity (01/19/11) Olecranon bursitis of left elbow Osteoarthritis Prostate cancer (2010) Thrombocytosis (01/19/11) Unilateral primary osteoarthritis, right knee Weakness of right lower extremity (11/15/16) Surgical History History of arthroplasty of right knee (05/24/20) History of spinal fusion (2012) History of splenectomy (1975) Status post cataract extraction of both eyes with insertion of intraocular lens Status post wrist surgery (2011) Family History Brother Thyroid cancer Mother Breast cancer Father No problems noted. 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 Urinary retention requiring straight catheterization and now able to void on his own with Flomax. Mild post hemorrhagic anemia which will not require active treatment. Plan of Treatment: Weightbearing as tolerated. Aspirin for DVT prophylaxis. Flomax daily for the next 5 days. Follow-up with primary and or urology if symptoms persist. Pain medications have been sent into the pharmacy for him. He will have physical therapy as an outpatient beginning in the next week. Follow up in the office in 10-14 days. Discharge Plan Discharge Plan Provider Discharge Comment: DC home after PT Discharge orders & Medications Discharge Orders: Discharge (Order); Ordered 09/01/20 Ordered By: Honorio Suarez Prescriptions: New acetaminophen 325 mg Tablet 650 mg PO TID Qty: 60 RF: 0 aspirin 81 mg Tablet,Delayed Release (Dr/Ec) 81 mg PO BID Qty: 60 RF: 0 ibuprofen 400 mg Tablet 400 mg PO Q4HR Qty: 60 RF: 0 docusate sodium [DOK] 100 mg Capsule 100 mg PO BID Qty: 20 RF: 0 oxycodone 5 mg Tablet 5 mg PO Q3HR PRN (Reason: Pain, Moderate (4-6)) Qty: 60 RF: 0 tamsulosin [Flomax] 0.4 mg Capsule 0.4 mg PO DAILY Qty: 5 RF: 0 Continued cyanocobalamin (vitamin B-12) 1,000 MCG tablet extended release 1,000 mcg PO QDAY Qty: 0 RF: 0 albuterol sulfate [Proventil HFA] 90 mcg/actuation HFA aerosol inhaler 2 puff INHALATION Q4HP PRN (Reason: shortness of breath or wheezing) Qty: 2 RF: 3 Alvesco 160 mcg/actuation HFA aerosol inhaler 2 puff INHALATION BID Qty: 6.1 RF: 11 potassium chloride [Klor-Con M20] 20 mEq tablet,ER particles/crystals 20 meq PO DAILY Qty: 30 RF: 11 omeprazole 40 mg capsule,delayed release(DR/EC) 40 mg PO BID Qty: 60 RF: 11 duloxetine 30 mg capsule,delayed release(DR/EC) 30 mg PO DAILY Qty: 90 RF: 3 levothyroxine 150 mcg tablet See Rx Instructions .ROUTE .COMPLEX Qty: 90 RF: 1 chlorthalidone 25 mg tablet 50 mg PO QDAY Qty: 180 RF: 1 diphenhydramine HCl [Allergy (diphenhydramine)] 25 mg capsule 25 mg PO Q4-6H PRN (Reason: Itching) RF: 0 fluticasone propionate 50 mcg/actuation spray,suspension 2 spray NASAL BEDTIME PRN (Reason: Allergy Symptoms) RF: 0 Combivent Respimat 20-100 mcg/actuation mist 1 puff INHALATION BID RF: 0 Follow up/Referrals: Blas Vargas MD [Primary Care Provider] - Honorio Suarez MD [Physician] - (Two weeks) Diet/Activity/Treatments Diet: Diet as Tolerated Activity: Weight-bearing as tolerated Cold/Heat Therapy: Apply ice to knee as needed Skin/Wound/Dressing Care Report to your healthcare provider any signs of infection, such as:: chills, fever, increased pain, unusual drainage and unusual redness Dressing: Keep dressing clean and dry. May remove Tim wrap in 2-3 days, leave dressing in place Visit Report/Discharge Packet Instructions: DI for Knee Replacement, How to Prevent Falls, Stool Softeners, Oxycodone, Tamsulosin Stand Alone Forms: Surgery Discharge Discharge Data Primary Care Provider: Blas Vargas Attending Provider: Honorio Suarez
[2020-09-01 07:52] VITALS: BP 108/69; PULSE 81; RESP 16; TEMP 36.9; O2SAT 93
--- NOTE | 2020-09-01 08:07 | CM.DPC ---
DCP Discharge Home with HH Per MD, pt is medically stable to d/c home today with HH and outpt follow up. Per PT, recommending d/c to home with HH and increased assist. Per previous SW notes, pt has help in getting [facility] PP CG in place and is agreeable to HH. SW faxed d/c summary and PT notes to [facility] to review and called with update on pt d/c home today and confirmed [facility] and orders previously faxed. Plan: Patient to d/c home today via friend POV and [facility] to start pt to service and work on getting PP CG in place. No further SW needs at this time. EDITH Wade
[2020-09-01] MEDS: BUDESONIDE 0.5 MG/2 ML NEB INH (08:15)
[2020-09-01] MEDS: ALBUTEROL/IPRATROPIUM 3 ML AMPUL INH (08:20)
[2020-09-01] MEDS: CYANOCOBALAMIN (VITAMIN B-12) 500 MCG TABLET 1000 MCG PO (08:58)
[2020-09-01] MEDS: CHLORTHALIDONE 25 MG TABLET 50 MG PO (08:58)
[2020-09-01] MEDS: PANTOPRAZOLE DR 40 MG TABLET PO (08:59)
[2020-09-01] MEDS: POTASSIUM CHLORIDE 20 MEQ TAB PO (08:59)
[2020-09-01] MEDS: ACETAMINOPHEN 325 MG TABLET 650 MG PO (08:59)
[2020-09-01] MEDS: ASPIRIN EC 81 MG TABLET PO (08:59)
[2020-09-01] MEDS: TAMSULOSIN 0.4 MG CAPSULE PO (08:59)
[2020-09-01] MEDS: DULOXETINE 30 MG CAPSULE PO (08:59)
[2020-09-01] MEDS: DOCUSATE 100 MG CAPSULE PO (08:59)
[2020-09-01] MEDS: OXYCODONE IR 10 MG TABLET PO (09:10)
--- NOTE | 2020-09-01 10:20 | PT.IPTN ---
Current Diagnoses Unilateral primary osteoarthritis, left knee (08/31/20) Surgery Performed Operation Date: 08/30/20 12:15 Actual Procedures p Total Knee Arthroplasty(Left) - Honorio Suarez MD Physical Therapy Treatment Note M2 PT-IP Current Condition Start: 08/31/20 08:41 Freq: NEEDED Status: Discharge Protocol: Document 08/31/20 10:20 AW (Rec: 08/31/20 11:08 AW [id number]) Physical Therapy Current Condition Current Condition Evaluation Date 08/31/20 Treatment Diagnosis L TKA; difficulty in walking Onset Date 08/30/20 Precautions Other Precautions falls Weight Bearing Status Weight Bearing Status Weight Bear as Tolerated M3 PT-IP Subjective Start: 08/31/20 08:41 Freq: NEEDED Status: Discharge Protocol: Document 09/01/20 09:40 SP (Rec: 09/01/20 14:41 SP [id number]) Subjective Physical Therapy Visit Type Type Treatment Note Visit Start Time 09:40 Visit Stop Time 10:20 Total Visit Minutes 40 Notes Brother Blas in attendance, completed caregiver training and physical assist required throughout tx required. Number of DIRECTOR OF KIDS Visits 2 Physical Therapy Visit Comments Patient Comments Pt was willing to participate in PT and stated premedicated for pain control. Patient Goals Return home with family and friends providing support. Therapy Pain Assessment Pain When Pain Assessed During Mobility Pain Present Pain Present Pain Reported M4 PT-IP Mobility and Gait Start: 08/31/20 08:41 Freq: NEEDED Status: Discharge Protocol: Document 09/01/20 09:40 SP (Rec: 09/01/20 14:41 SP [id number]) PT-Bed Mobility Assessment Sit to Supine Sit to Supine Standby Assistance PT-Transfer Assessment Sit to and From Stand Sit to and from Stand Standby Assistance,1 Person Assistance,Use of Upper Extremities Equipment Transfer Assistive Device Gait Belt,Front Wheeled Walker Orthotic/Prosthetic Devices or Brace: No Transfers Transfer Destination Bed,Wheelchair Transfer Technique pt ambulated using FWW Transfer Ability Level of Assist Standby Assistance,1 Person Assistance,Use of Upper Extremities Comments Mobility Comments Pt was seated in chair when arrived. Brother Blas donned gait belt. Pt sit>stand SBA using FWW, ambulated further distance into hallway approx 80 ft using fww w/ w/c follow before required seated break secondary to decrease strength and activity tolerance. Pt pushed rest of distance to stairs. Pt ascend/descended 3 stairs using L HR and SPC in RUE with support from brother for trunk assist and steady SPC for heavy downward pressure pt using. Pt was cued initially by DIRECTOR OF KIDS then brother for proper LE patterning RLE ascend/ LLE descending with good placement of SPC Min A x1 . Pt requested to sit back in w/c secondary to tiring and 6/ 10 L knee pain with mobility. After pushed back to room, pt ambulated to L side of bed sBA using FWW with good L knee flexion and heel toe phases today. Completed Stand>sit> supine using gait belt on LLE for self mobility SBA. Reviewed postop exercises with LLE: ankle pumps, quad sets, passive L knee hang ankle over rolled towel, use of gait belt during heel slides ( approx 80 deg) and SAQ,also discussed seated heel slides/ knee flexion but not performed . Answered pt and brother's questions. Pt had call light and all needs in reach before left. Gait Assessment Gait Gait Assistance Required: Contact Guard Assist Distance (Feet) 80 Able to Maintain Weight Bearing Status Yes During Gait Assistive Devices Assistive Device Gait Belt,Front Wheeled Walker Orthotic/Prosthetic Devices or Brace: No Gait Deviations General Gait Pattern Antalgic,Decreased Stride Length,Decreased Feet Clearance,Wide Based Gait Factors Limiting Gait Function Factors Limiting Gait Function Decreased Activity Tolerance, Decreased Sensation,Decreased Strength,Limited Range of Motion,Pain,Poor Balance Comments Gait Comments Pt ambulated 80 ft, 15 ft using FWW, sBA. Stair Climbing Assessment Evaluation Level of Assist On Stairs Minimal Assistance,1 Person Assistance Devices Stair Climbing Assistive Devices Straight Cane,Left Railing Technique/Endurance Stair Climbing Direction Ascend and Descend Stair Climbing Technique Step Over Step Number of Steps Climbed 3 Stair Climbing Set # Repetitions (reps) 2 Comments Stair Climbing Comments Pt able ascend/descend 6 stairs L HR and SPC in RUE, step to patterning with mod cuing for lead non surgical ascending, Surgical descending and Min A via brother. PT-Balance Assessment Sitting Balance and Reactions Static Sitting Balance Ability Good Dynamic Sitting Balance Ability Good Standing Balance and Reactions Static Standing Balance Ability Good Dynamic Standing Balance Ability Good Device Used FWW M5 PT-IP Objective Assessments Start: 08/31/20 08:41 Freq: NEEDED Status: Discharge Protocol: Document 08/31/20 10:20 AW (Rec: 08/31/20 11:08 AW [id number]) Orientation Orientation/Cognition Level of Alertness Alert Orientation Name,Day of Week,Place, Situation Language Function Ability No Deficits Noted Safety Awareness Decreased Safety Awareness Memory Description No Deficits Noted Gross Range of Motion Lower Extremity ROM Assessment Right Impaired Impairments knee 5-85 Strength Lower Extremity Strength Assessment Left Impaired Hip 3+/5 Knee 3-/5 Ankle 4-/5 Comments Strength Comments RLE grossly 4/5 except knee flexion 4+/5 Sensation Assessment Sensation Gross Sensation Right LE Impaired,Left LE Impaired Light Touch Impaired Proprioception (Position) Impaired Sensation Description Numbness Comments Sensation Comments Idiopathic peripheral neuropathy affecting sensation in bilateral feet with plantar surfaces most affected . M6 PT-IP Treatment Start: 08/31/20 08:41 Freq: NEEDED Status: Discharge Protocol: Document 09/01/20 09:40 SP (Rec: 09/01/20 14:41 SP [id number]) Physical Therapy Treatment Education Education Provided Precautions,Weight Bearing Status,Post-Op Packet,Safety Other Treatments Other Treatment Performed Educated pt on weightbearing status, safety sequencing during stair mgt and proper LE leading. Also importance of HEP wtih emphasis on ROM to 90 deg of tolerated until see outpt therapy, walking around house for circulation, strength and improve functional mobility to reduction in risk for DVT. M7 PT-IP Assessment and Plan Start: 08/31/20 08:41 Freq: NEEDED Status: Discharge Protocol: Document 09/01/20 09:40 SP (Rec: 09/01/20 14:41 SP [id number]) PT Summary Assessment and Plan Potential Rehabilitation Potential Good Status of Condition at Evaluation Evolving Summary Impairments Pain,ROM,Strength,Balance, Sensation,Bed Mobility, Transfers,Gait,Activity Tolerance Progress Towards Goals Progressing Toward Goals,Slow Progress due to Pain,Slow Progress due to Activity Tolerance Assessment Summary Pt required SBA during all mobility using FWW, Min A during stair mgt LHR and SPC. Pt is ok to return home with family/friends to assist him when medically stable. Pt has follow up appt with outpt PT next week. Goals Bed Mobility Goal Standby Assistance Transfer Goal Standby Assistance,Front Wheeled Walker Gait Goal Standby Assistance,Front Wheel Walker Gait Distance 125 Other Goals up/down two steps with L rail ascending CGA Days to Meet Goals 3 Frequency of Treatment Frequency Of Treatment Twice a Day Treatment Plan Physical Therapy Treatment Plan Bed Mobility Training,Transfer Training,Gait Training, Therapeutic Exercise,Balance Retraining,Post Op Education, Discharge Planning,Hot or Cold Pack Other Recommendations and Next Treatment gait distance, stairs, post op Focus ex. Precautions Other Precautions WBAT LLE; falls Recommendations To Nursing Amount of Assist Needed Standby Assistance Discharge Recommendations PT Discharge Recommendations Home with Assistance, Outpatient PT Transportation Needs at Discharge Private Vehicle
== END 2020-09-01 11:15 | disposition home or self-care (01) ==
LOC: OR 16:21 → AC 16:21
PROVIDERS: Admitting Provider Orthopaedic Surgery; PCP Internal Medicine; Referring Provider Orthopaedic Surgery; Visit Provider Orthopaedic Surgery
PROC: 0SRD0JZ Replacement of Left Knee Joint with Synthetic Substitute, Open Approach (ICD-10-PCS; CPT 27447; principal; 2020-08-30 12:15)
DX: M17.12 Unilateral primary osteoarthritis, left knee (principal); J44.9 Chronic obstructive pulmonary disease, unspecified; I10 Essential (primary) hypertension; E03.9 Hypothyroidism, unspecified; E66.9 Obesity, unspecified; G62.9 Polyneuropathy, unspecified; R33.9 Retention of urine, unspecified; Z68.38 Body mass index [BMI] 38.0-38.9, adult
CPT/HCPCS: 27447; 36415; 73560; 85014; 85018; 94640; 97110; 97116; 97162; 97530; C1776; G0378; C9290; J0690; J1170; J2250; J2270; J2274; J2405; J2704; J3010

== ENCOUNTER 2020-09-03 13:15 | Emergency (ER) | payer MEDICARE, SELFPAY ==
[2020-08-30 21:24] VITALS: BMI 39.1
[2020-09-03 13:21] VITALS: BP 145/71; PULSE 85; RESP 16; TEMP 36.7; O2SAT 91
[2020-09-03 15:44] VITALS: BP 124/58; PULSE 90; TEMP 36.8; O2SAT 90
--- NOTE | 2020-09-03 16:47 | ED_ITS ---
HPI - Skin/Abscess/Foreign Bdy General Chief complaint: Skin/Abscess/Foreign Body Stated complaint: Surgical Wound That's Bleeding Time Seen by Provider: 09/03/20 16:33 Source: patient Mode of arrival: Ambulatory Limitations: no limitations History of Present Illness HPI narrative: 69-year-old male and recent left knee surgery presents with a chief complaint of some dark blood on the bandage of his surgical site. He denies any recent falls or injuries. He has had no fever or chills. He denies any use of blood thinners. He denies any significant pain. He is not dizzy nor weak or lightheaded. He is otherwise well and free of complaint. He has not changed his dressing since the surgery MD complaint: other Onset (ago): hour(s) Tetanus up to date: yes Location: LLE Severity: mild Relieving factors: none Exacerbating factors: none Associated symptoms: denies other symptoms Treatments prior to arrival: none and bandages Related Data Home Medications Medication Instructions Recorded Confirmed cyanocobalamin (vitamin B-12) 1,000 mcg PO QDAY #0 04/04/17 08/27/20 diphenhydramine HCl 25 mg capsule 25 mg PO Q4-6H PRN 09/14/17 08/30/20 Combivent Respimat 1 puff INHALATION BID 02/19/20 08/30/20 fluticasone propionate 2 spray NASAL BEDTIME PRN 02/19/20 08/30/20 Previous Rx's Medication Instructions Recorded albuterol sulfate 90 mcg/actuation 2 puff INHALATION Q4HP PRN #2 10/06/19 aerosol inhaler device ciclesonide 160 mcg/actuation 2 puff INHALATION BID #6.1 gram 01/14/20 aerosol inhaler duloxetine 30 mg capsule,delayed 30 mg PO DAILY #90 cap 05/31/20 release omeprazole 40 mg capsule,delayed 40 mg PO BID #60 cap 05/31/20 release potassium chloride 20 mEq 20 meq PO DAILY #30 tab 05/31/20 tablet,extended release(part/cryst) levothyroxine 150 mcg tablet See Rx Instructions .ROUTE 06/07/20 .COMPLEX #90 tab chlorthalidone 25 mg tablet 50 mg PO QDAY #180 tab 06/16/20 acetaminophen 650 mg PO TID #60 tab 08/31/20 aspirin 81 mg PO BID #60 tab 08/31/20 docusate sodium [DOK] 100 mg PO BID #20 cap 08/31/20 ibuprofen 400 mg PO Q4HR #60 tab 08/31/20 oxycodone 5 mg PO Q3HR PRN #60 tab 08/31/20 tamsulosin [Flomax] 0.4 mg PO DAILY #5 cap 08/31/20 Allergies Allergy/AdvReac Type Severity Reaction Status Date / Time crab [CRAB] Allergy Severe Throat Verified 09/03/20 13:24 swelling animal dander [ANIMAL DANDER] Allergy Mild Sinus Verified 09/03/20 13:24 congestion, itching, eczema pollen extracts Allergy Unknown Sinus Verified 09/03/20 13:24 [POLLEN EXTRACTS] congestion, itching, eczema Review of Systems Constitutional Constitutional: Denies chills, Denies fatigue, Denies fever(s), Denies frequent falls, Denies lethargy and Denies weakness Eyes Eyes: Denies change in vision, Denies eye discharge, Denies irritation and Denies loss of vision ENT Ears, Nose, Mouth, and Throat: Denies change in voice, Denies dizziness, Denies neck pain, Denies sore throat and Denies throat swelling Cardiovascular Cardiovascular: Denies chest pain, Denies irregular heart rhythm, Denies lightheadedness, Denies palpitations, Denies dyspnea, Denies dyspnea on exertion and Denies orthopnea Respiratory Respiratory: Denies cough, Denies dyspnea, Denies dyspnea on exertion and Denies wheezing Gastrointestinal Gastrointestinal: Denies abdominal pain, Denies change in bowel habits, Denies diarrhea, Denies nausea and Denies vomiting Musculoskeletal Musculoskeletal: Denies neck pain and Denies numbness Integumentary/Breasts Skin/Breast: Denies pruritus, Denies erythema, Denies rash and Denies wounds Comments: minimal bleeding from surgical site Neurologic Neurologic: Denies behavioral changes, Denies confusion, Denies dizziness, Denies frequent falls, Denies loss of vision, Denies numbness and Denies weakness Psychiatric Psychiatric: Denies anxiety, Denies behavioral changes, Denies confusion, Denies depression, Denies homicidal ideation and Denies suicidal ideation Endocrine Endocrine: Denies fatigue, Denies flushing and Denies palpitations Hematologic/Lymphatic Hematologic/Lymphatic: Denies easy bruising Allergic/Immunologic Allergic/Immunologic: Denies urticaria, Denies throat swelling and Denies wheezing Patient History Medical History Acquired insufficiency of aortic valve (10/08/15) Asthma Cellulitis (~02/2020) Chronic obstructive pulmonary disease (01/19/11) Cobalamin deficiency CTS (carpal tunnel syndrome) Duodenal ulcer Eczema Elevated d-dimer (~02/2020) Essential hypertension Former smoker Gastric ulcer History of malignant neoplasm of prostate Hypothyroidism (08/21/14) Idiopathic peripheral neuropathy Leukocytosis (01/19/11) Low back pain of over 3 months duration (11/15/16) Obesity (01/19/11) Olecranon bursitis of left elbow Osteoarthritis Prostate cancer (2010) Thrombocytosis (01/19/11) Unilateral primary osteoarthritis, right knee Weakness of right lower extremity (11/15/16) Surgical History History of arthroplasty of right knee (05/24/20) History of spinal fusion (2012) History of splenectomy (1975) Status post cataract extraction of both eyes with insertion of intraocular lens Status post wrist surgery (2011) Family History Brother Thyroid cancer Mother Breast cancer Father No problems noted. 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[employer]: [employer] travel history: recent () leisure activities: art (Photography), volunteer work and other (Traveling) Smoking Status: Former smoker Tobacco: How many years used: 15 Smokeless tobacco user: other (Cigarettes) quit status: quit date established (1989) second hand exposure: No alcohol intake: former substance use type: does not use Smoking Status: Former smoker alcohol intake frequency: holidays/special occasions only Substance Use Type: does not use Exam Narrative Exam Narrative: GEN: AOx3 and in mild distress EYES: Pupils are equal, round, and reactive to light and accommodation. Extraoccular muscles are intact bilaterally. There is no subconjunctival hemorrhage or exudate. CHEST: Lungs are clear to auscultation bilaterally and free of wheezes, rales, or rhonchi. Heart rate is regular rhythm, there are no murmurs, clicks, rubs, or gallops. There is no chest wall tenderness. ABD: Abdomen is soft and nontender. There is no guarding or rebound. Bowel sounds are normal in all 4 quadrants. There is no mass or organomegaly. EXT: Moderate dark clot in most inferior portion of dressing, this dressing is removed and there was a very minimal amount of superficial dehiscence at the most inferior aspect of the incision. No surrounding erythema wound streaking or drainage. SKIN: Warm, pink, and dry. No erythema or rash Initial Vital Signs Initial Vital Signs: Vital Signs Temperature 98.1 F 09/03/20 13:21 Pulse Rate 85 09/03/20 13:21 Respiratory Rate 16 09/03/20 13:21 Blood Pressure 145/71 H 09/03/20 13:21 Pulse Oximetry 91 09/03/20 13:21 Course Consultations Consultation #1: discussed with air control/anti air warfare officer ortho Rowan). Recommends a few steri strips, dressing change, return precautions and return to previous discharge instructions. Vital Signs Vital signs: Vital Signs - 8 hr 09/03/20 13:21 09/03/20 15:44 Temperature 98.1 F 98.3 F Pulse Rate 85 90 Respiratory Rate 16 Blood Pressure 145/71 H 124/58 L Pulse Oximetry 91 90 L Discharge Plan Departure Patient Disposition: Home Clinical Impression: Abnormal surgical wound Qualifiers: Encounter type: initial encounter Qualified Code(s): T81.9XXA - Unspecified complication of procedure, initial encounter Instructions: DI for Wound Dehiscence Activity Restrictions/Additional Instructions: *You have been diagnosed with [minimal bleeding from surgical site. We have placed a few Steri-Strips and replace the dressing and contacted the on-call orthopedic surgeon.] *What to do: *Please continue to take your regular medications as directed. [ ] New medication prescriptions sent to your pharmacy: [ ] [ ] New medication written as a paper prescription [ x] No new medications given *Please follow up with your primary care provider in 2-3 days, call for an appointment. Let them know you were seen in the Emergency Department and that we ask that you be seen in follow up. We will electronically transmit a record of today's note if your PCP is in our system *If you do not have a primary care provider please contact the [facility] Resource line at [phone]. They will ask some questions about your medical history and help get you set up with a doctor in the community. *Return to Emergency Department if you should have any new, worsening or concerning symptoms, such as [fever greater than 101 F, shaking chills, worsening bleeding, pain, persistent vomiting or other bothersome symptoms] Prescriptions: No Action cyanocobalamin (vitamin B-12) 1,000 MCG tablet extended release 1,000 mcg PO QDAY Qty: 0 RF: 0 albuterol sulfate [Proventil HFA] 90 mcg/actuation HFA aerosol inhaler 2 puff INHALATION Q4HP PRN (Reason: shortness of breath or wheezing) Qty: 2 RF: 3 Alvesco 160 mcg/actuation HFA aerosol inhaler 2 puff INHALATION BID Qty: 6.1 RF: 11 potassium chloride [Klor-Con M20] 20 mEq tablet,ER particles/crystals 20 meq PO DAILY Qty: 30 RF: 11 omeprazole 40 mg capsule,delayed release(DR/EC) 40 mg PO BID Qty: 60 RF: 11 duloxetine 30 mg capsule,delayed release(DR/EC) 30 mg PO DAILY Qty: 90 RF: 3 levothyroxine 150 mcg tablet See Rx Instructions .ROUTE .COMPLEX Qty: 90 RF: 1 chlorthalidone 25 mg tablet 50 mg PO QDAY Qty: 180 RF: 1 diphenhydramine HCl [Allergy (diphenhydramine)] 25 mg capsule 25 mg PO Q4-6H PRN (Reason: Itching) RF: 0 fluticasone propionate 50 mcg/actuation spray,suspension 2 spray NASAL BEDTIME PRN (Reason: Allergy Symptoms) RF: 0 Combivent Respimat 20-100 mcg/actuation mist 1 puff INHALATION BID RF: 0 acetaminophen 325 mg Tablet 650 mg PO TID Qty: 60 RF: 0 aspirin 81 mg Tablet,Delayed Release (Dr/Ec) 81 mg PO BID Qty: 60 RF: 0 ibuprofen 400 mg Tablet 400 mg PO Q4HR Qty: 60 RF: 0 docusate sodium [DOK] 100 mg Capsule 100 mg PO BID Qty: 20 RF: 0 oxycodone 5 mg Tablet 5 mg PO Q3HR PRN (Reason: Pain, Moderate (4-6)) Qty: 60 RF: 0 tamsulosin [Flomax] 0.4 mg Capsule 0.4 mg PO DAILY Qty: 5 RF: 0 Referrals: Blas Vargas MD [Primary Care Provider] - Honorio Suarez MD [Physician] -
[2020-09-03 17:20] VITALS: BP 177/77; PULSE 94; RESP 18; O2SAT 95
== END 2020-09-03 17:20 | disposition home or self-care (01) ==
PROVIDERS: Emergency Provider Emergency Medicine; PCP Internal Medicine
DX: T81.9XXA Unspecified complication of procedure, initial encounter (principal)
CPT/HCPCS: 99281

== ENCOUNTER 2020-11-29 15:15 | Emergency (ER) | payer MEDICARE, SELFPAY ==
[2020-08-30 21:24] VITALS: BMI 39.1
[2020-11-29 15:22] VITALS: BP 203/91; PULSE 76; RESP 18; TEMP 36.6; O2SAT 93; BMI 39.1
--- NOTE | 2020-11-29 15:26 | DI.RAD.S_ITS ---
PROCEDURE: XR RIBS LT MIN 3V W CXR1V INDICATIONS: Left ribs TECHNIQUE: 2 views of the left ribs were acquired, along with a single view chest. COMPARISON: [facility], CR, XR CHEST 1V, 02/18/2020, 16:17. [facility], CR, XR CHEST 1V, 02/24/2020, 13:41. FINDINGS: Surgical changes and devices: Cervical thoracic spine fixation hardware is stable. Bones and chest wall: Mildly displaced left 4th, 5th and 6th rib fractures. No suspicious bony lesions. Overlying soft tissues appear unremarkable. Lungs and pleura: Small right pleural fluid collection. No pneumothorax. Lungs appear clear. Mediastinum: Mediastinal contours appear normal. Heart size is normal. Retrocardiac hiatal hernia. IMPRESSION: 1. Left 4th, 5th and 6th rib fractures. 2. Small right-sided pleural fluid collection. Dictated by: Aparna Wallace MD, PhD on 11/29/2020 at 16:14 Approved by: Aparna Wallace MD, PhD on 11/29/2020 at 16:17
--- NOTE | 2020-11-29 16:42 | DI.CT.S_ITS ---
PROCEDURE: CT HEAD/BRAIN WO CON INDICATIONS: Fall TECHNIQUE: Noncontrast 4.5 mm thick angled axial sections acquired from the foramen magnum to the vertex, with coronal and sagittal reformats. For radiation dose reduction, the following was used: automated exposure control, adjustment of mA and/or kV according to patient size. COMPARISON: [facility], CT, HEAD WITHOUT CONTRAST, 11/25/2010, 13:54. FINDINGS: Image quality: Excellent. CSF spaces: Basal cisterns are patent. No extra-axial fluid collections. Ventricles are normal in size and shape. Brain: No midline shift. No intracranial masses or hemorrhage. Guerrero-white matter interface is normal. Skull and face: Calvarium and visualized facial bones are intact, without suspicious lesions. Sinuses: Visualized sinuses and mastoids are clear. IMPRESSION: Normal for age, source of current pain after trauma symptoms is not seen. Dictated by: Cruz Elias M.D. on 11/29/2020 at 17:15 Approved by: Cruz Elias M.D. on 11/29/2020 at 17:16
--- NOTE | 2020-11-29 16:44 | ED.FALL ---
HPI - Fall <Leandro Sequeira PA-C - Last Filed: 12/01/20 13:42> General Chief Complaint: Fall Stated Complaint: FALL LEFT SIDE INJURY HARD TIME BREATHING Time Seen by Provider: 11/29/20 16:04 Source: patient Mode of arrival: Ambulatory History of Present Illness HPI Narrative: 69 yo M with PMH hypertension, hypothyroidism, osteoarthritis, COPD, aortic valve insufficiency presents to the ED status post a mechanical fall sustained just prior to arrival today. Patient reports that he sustained a mechanical fall when he misjudged a step on the street, fell forward on his left side, striking his head and chest. Endorses pain on the left side of the head and left chest. Denies any other injuries.Denies lightheadedness, dizziness leading up to the fall. Denies syncope, dizziness, lightheadedness status post the fall. Has prior history of shoulder and rib fractures from a fall. Denies fever, chills, chest pain, shortness of breath, numbness, tingling, weakness, neck pain, visual disturbances. Denies being on blood thinners. Related Data Home Medications Medication Instructions Recorded Confirmed cyanocobalamin (vitamin B-12) 1,000 mcg PO QDAY #0 04/04/17 12/03/20 1,000 mcg tablet,extended release diphenhydramine HCl 25 mg capsule 25 mg PO Q4-6H PRN 09/14/17 12/03/20 (Allergy (diphenhydramine)) fluticasone propionate 50 2 spray NASAL BEDTIME PRN 02/19/20 12/03/20 mcg/actuation nasal spray,suspension ipratropium 20 mcg-albuterol 100 1 puff INHALATION BID 02/19/20 12/03/20 mcg/actuation mist for inhalation (Combivent Respimat) Previous Rx's Medication Instructions Recorded ciclesonide 160 mcg/actuation 2 puff INHALATION BID #6.1 gram 01/14/20 aerosol inhaler (Alvesco) duloxetine 30 mg capsule,delayed 30 mg PO DAILY #90 cap 05/31/20 release omeprazole 40 mg capsule,delayed 40 mg PO BID #60 cap 05/31/20 release potassium chloride 20 mEq 20 meq PO DAILY #30 tab 05/31/20 tablet,extended release(part/cryst) (Klor-Con M) levothyroxine 150 mcg tablet See Rx Instructions .ROUTE 06/07/20 .COMPLEX #90 tab chlorthalidone 25 mg tablet 50 mg PO QDAY #180 tab 06/16/20 acetaminophen 325 mg tablet 650 mg PO TID #60 tab 08/31/20 aspirin 81 mg tablet,delayed 81 mg PO BID #60 tab 08/31/20 release ibuprofen 400 mg tablet 400 mg PO Q4HR #60 tab 08/31/20 tamsulosin 0.4 mg capsule (Flomax) 0.4 mg PO DAILY #5 cap 08/31/20 albuterol sulfate 90 mcg/actuation 2 puff INHALATION Q4HP PRN #2 10/14/20 aerosol inhaler (Proventil HFA) device oxycodone-acetaminophen 5 mg-325 1 tab PO Q8H PRN #10 tab 12/08/20 mg tablet (Percocet) Allergies Allergy/AdvReac Type Severity Reaction Status Date / Time crab [CRAB] Allergy Severe Throat Verified 12/03/20 14:05 swelling animal dander [ANIMAL DANDER] Allergy Mild Sinus Verified 12/03/20 14:05 congestion, itching, eczema pollen extracts Allergy Unknown Sinus Verified 12/03/20 14:05 [POLLEN EXTRACTS] congestion, itching, eczema Review of Systems <Leandro Sequeira PA-C - Last Filed: 12/01/20 13:42> Constitutional Constitutional: Denies chills and Denies fever(s) Eyes Eyes: Denies change in vision ENT Ears, Nose, Mouth, and Throat: Denies neck pain Cardiovascular Cardiovascular: Denies chest pain and Denies dyspnea Respiratory Respiratory: Denies cough, Reports pain on inspiration and Denies dyspnea Gastrointestinal Gastrointestinal: Denies abdominal pain Musculoskeletal Musculoskeletal: Reports as per HPI, Denies back pain, Denies muscle weakness, Denies neck pain, Denies numbness and Denies tingling Integumentary/Breasts Skin/Breast: Reports system reviewed and no additional complaints, except as documented Neurologic Neurologic: Reports system reviewed and no additional complaints, except as documented, Denies numbness and Denies tingling Patient History <Leandro Sequeira PA-C - Last Filed: 12/01/20 13:42> Medical History Acquired insufficiency of aortic valve (10/08/15) Asthma Cellulitis (~02/2020) Chronic obstructive pulmonary disease (01/19/11) Cobalamin deficiency CTS (carpal tunnel syndrome) Duodenal ulcer Eczema Elevated d-dimer (~02/2020) Essential hypertension Former smoker Gastric ulcer History of malignant neoplasm of prostate Hypothyroidism (08/21/14) Idiopathic peripheral neuropathy Leukocytosis (01/19/11) Low back pain of over 3 months duration (11/15/16) Obesity (01/19/11) Olecranon bursitis of left elbow Osteoarthritis Prostate cancer (2010) Thrombocytosis (01/19/11) Unilateral primary osteoarthritis, right knee Weakness of right lower extremity (11/15/16) Surgical History History of arthroplasty of right knee (05/24/20) History of spinal fusion (2012) History of splenectomy (1975) Status post cataract extraction of both eyes with insertion of intraocular lens Status post wrist surgery (2011) Family History Brother Thyroid cancer Mother Breast cancer Father No problems noted. 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 rocío/sabianism: [employer]ism travel history: recent () leisure activities: art (Photography), volunteer work and other (Traveling) Smoking Status: Former smoker Tobacco: How many years used: 15 Smokeless tobacco user: other (Cigarettes) quit status: quit date established (1989) second hand exposure: No alcohol intake: former substance use type: does not use Smoking Status: Former smoker alcohol intake frequency: holidays/special occasions only Substance Use Type: does not use Exam <Leandro Sequeira PA-C - Last Filed: 12/01/20 13:42> Initial Vital Signs Initial Vital Signs: Vital Signs Temperature 98 F 11/29/20 15:22 Pulse Rate 76 11/29/20 15:22 Respiratory Rate 18 11/29/20 15:22 Blood Pressure 203/91 H 11/29/20 15:22 Pulse Oximetry 93 11/29/20 15:22 Const General: cooperative [facility] Head: abrasion, No Martin's sign, No hematoma, No laceration, No palpable skull fracture, No raccoon eyes, No periorbital ecchymosis and other (TTP of L forehead above brow, small abrasion, not bleeding, no bruising, ) Ears: external ears normal and TM's normal bilaterally Nose: external nose normal and No nasal discharge Face and sinus: sinuses nontender, face symmetric, no sinus tenderness and No dry mucous membranes Mouth: oral mucosae normal and moist mucous membranes Teeth and gingiva: dentition normal Throat: tonsils normal and uvula midline Eyes General: appearance normal, both eyes and all related structures Eyelids: eyelids normal Conjunctivae: conjunctivae normal Sclera: sclerae normal Pupils: PERRL EOM: EOM intact bilaterally and No nystagmus Neck Neck: normal visual inspection, trachea midline, No lymphadenopathy, No midline deformity and No JVD Lymphatic: No lymphedema Chest Chest: localized rib tenderness with anteroposterior compression Resp Effort & Inspection: normal respiratory effort, able to speak in complete sentences, no audible wheezes, no cough, respiratory effort not decreased, no paradoxical thoraco-abdom movements, no respiratory distress, no use of accessory muscles and symmetric chest movement Auscultation: clear to auscultation bilaterally, no rales, no rhonchi and no wheezes Other: No bruising visible. Skin intact. Cardio Rate: regular rate Rhythm: regular rhythm Heart Sounds: no click, no gallops, no murmurs and no rubs Pulses: normal peripheral pulses GI Inspection: no abdominal wall ecchymosis and non-distended Palpation: soft, no hepatosplenomegaly, No guarding, No pulsatile mass and No tender Auscultation: normal bowel sounds General: No CVA tenderness Back/Spine/Pelvis Back: normal to inspection, No back tenderness and No CVA tenderness Cervical Spine: cervical ROM normal and No pain with cervical ROM Thoracic/Lumbar Spine: thoracic and lumbar spine normal to inspection Other: No midline or paraspinal tenderness to palpation. Full range of motion. Skin General: no rashes or lesions noted, No jaundice and No petechiae Neuro General: patient alert, patient oriented x3, gait normal, moves all extremities, no focal motor deficits and CN's II-XI intact bilaterally Cranial Nerves: CN's II-XI intact bilaterally, PERRL, EOM intact bilaterally, facial strength normal, tongue midline, hearing normal, able to rotate head bilaterally, able to elevate shoulders bilaterally and No nystagmus Cognition: normal cognition Speech: speech normal Gait: normal gait Motor: muscle tone normal throughout, strength 5/5 throughout and no pronator drift Coordination: [id number] test normal and yenr-sm-wirr test normal Other: Neurologically intact. Extrem General: full ROM, no clubbing, cyanosis or edema, no pedal edema and no calf tenderness Psych Appearance: well kempt Mental Status: mental status grossly normal Attitude: cooperative Thought Content: normal and suicidality Judgment: judgment good <Pedro Lucero DO - Last Filed: 12/16/20 07:09> Initial Vital Signs Initial Vital Signs: Vital Signs Temperature 98 F 11/29/20 15:22 Pulse Rate 76 11/29/20 15:22 Respiratory Rate 18 11/29/20 15:22 Blood Pressure 203/91 H 11/29/20 15:22 Pulse Oximetry 93 11/29/20 15:22 Scores <Leandro Sequeira PA-C - Last Filed: 12/01/20 13:42> [place] Head Rule Age <16 years old: No Patient on blood thinners: No Seizure after injury: No Exclusion: Patient NOT Excluded, Proceed to next steps GCS < 15 at 2 hr post trauma: No Suspected open or depressed skull fracture: No Any sign of basilar skull fracture (hemotympanum, raccoon eyes, Martin's sign, CSF foina-/rhinorrhea): No Two or more episodes of vomiting: No Age greater or equal to 65 years: Yes Retrograde amnesia to the event greater or equal to 30 min: No Dangerous Mechanism (pedestrian vs. mv, occupant ejected from mv, fall from >3 ft or > 5 stairs): No Recommendation: Consider CT. The [place] CT Rule cannot rule out need for Imaging. <DO Adelina Ken Last Filed: 12/16/20 07:09> [place] CT Head Rule Exclusion: Patient NOT Excluded, Proceed to next steps Recommendation: Consider CT. The [place] CT Rule cannot rule out need for Imaging. Course <Leandro Sequeira PA-C - Last Filed: 12/01/20 13:42> Orders Ordered: Discontinued Medications Morphine Sulfate (Morphine 4 Mg/Ml Inj) 4 mg IV NOW ONE Stop: 11/29/20 16:44 Last Admin: 11/29/20 17:11 Dose: Not Given Documented by: JOSE ANTONIO patient declined morphine, since he would be driving home. Declined other medications. Endorsed that pain was manageable Reevaluation(s) Reevaluation #1: Patient was re-evaluated, appears stable, endorsed tolerable pain. Denies shortness of breath, able to take full breaths. Reevaluation #2: Patient briefed of negative CT head results, 3 contiguous rib fractures. But shared decision-making, spirometry education, patient to be discharged home. Return ED precautions discussed. Patient verbalized understanding. Vital Signs Vital signs: Vital Signs - 8 hr 11/29/20 15:22 11/29/20 18:41 Temperature 98 F Pulse Rate 76 77 Respiratory Rate 18 16 Blood Pressure 203/91 H 160/86 H Pulse Oximetry 93 94 <Pedro Lucero DO - Last Filed: 12/16/20 07:09> Orders Ordered: Discontinued Medications Morphine Sulfate (Morphine 4 Mg/Ml Inj) 4 mg IV NOW ONE Stop: 11/29/20 16:44 Last Admin: 11/29/20 17:11 Dose: Not Given Documented by: JOSE ANTONIO Vital Signs Vital signs: Vital Signs - 8 hr 11/29/20 15:22 11/29/20 18:41 Temperature 98 F Pulse Rate 76 77 Respiratory Rate 18 16 Blood Pressure 203/91 H 160/86 H Pulse Oximetry 93 94 MDM - Fall <Leandro Sequeira PA-C - Last Filed: 12/01/20 13:42> Medical Records Attestation: I reviewed the patient's medical records. Lab Data Attestation: I reviewed the patient's lab results. Imaging Data CT scan - head: Attestation: I personally reviewed and interpreted this imaging study as follows: My Impression: No acute findings including intracranial hemorrhage or midline shift. No fractures. Radiologist's Impression: PROCEDURE: CT HEAD/BRAIN WO CON INDICATIONS: Fall TECHNIQUE: Noncontrast 4.5 mm thick angled axial sections acquired from the foramen magnum to the vertex, with coronal and sagittal reformats. For radiation dose reduction, the following was used: automated exposure control, adjustment of mA and/or kV according to patient size. COMPARISON: [facility], CT, HEAD WITHOUT CONTRAST, 11/25/2010, 13:54. FINDINGS: Image quality: Excellent. CSF spaces: Basal cisterns are patent. No extra-axial fluid collections. Ventricles are normal in size and shape. Brain: No midline shift. No intracranial masses or hemorrhage. Guerrero-white matter interface is normal. Skull and face: Calvarium and visualized facial bones are intact, without suspicious lesions. Sinuses: Visualized sinuses and mastoids are clear. IMPRESSION: Normal for age, source of current pain after trauma symptoms is not seen. Dictated by: Cruz Elias M.D. on 11/29/2020 at 17:15 Approved by: Cruz Elias M.D. on 11/29/2020 at 17:16 Rib x-ray: Attestation: I personally reviewed and interpreted this imaging study as follows: My Impression: Left-sided rib fractures of 4th 5th and 6th ribs, small right-sided pleural effusion. Radiologist's Impression: [address] [id number] ReportSigned Patient: Tanner Hauser R#: [id number]: 2Acct:[id number]/Sex: 69 / MDate of Service: 11/29/20Loc: EDAccession Number: [id number] Procedure: XR ribs LT min 3V w CXR1V Ordering Provider: Pedro Lucero D.O. PROCEDURE: XR RIBS LT MIN 3V W CXR1V INDICATIONS: Left ribs TECHNIQUE: 2 views of the left ribs were acquired, along with a single view chest. COMPARISON: [facility], CR, XR CHEST 1V, 02/18/2020, 16:17. [facility], CR, XR CHEST 1V, 02/24/2020, 13:41. FINDINGS: Surgical changes and devices: Cervical thoracic spine fixation hardware is stable. Bones and chest wall: Mildly displaced left 4th, 5th and 6th rib fractures. No suspicious bony lesions. Overlying soft tissues appear unremarkable. Lungs and pleura: Small right pleural fluid collection. No pneumothorax. Lungs appear clear. Mediastinum: Mediastinal contours appear normal. Heart size is normal. Retrocardiac hiatal hernia. IMPRESSION: 1. Left 4th, 5th and 6th rib fractures. 2. Small right-sided pleural fluid collection. Dictated by: Aparna Wallace MD, PhD on 11/29/2020 at 16:14 Approved by: Aparna Wallace MD, PhD on 11/29/2020 at 16:17 [facility] Narrative Medical decision making narrative: Consider mechanical fall versus syncope versus rib fractures /dislocations versus pulmonary contusions versus intracranial hemorrhage versus skull fracture. Given patient history, unlikely syncope due to no loss of consciousness, dizziness, lightheadedness. Likely mechanical fall. Per [place] head CT rule, will obtain CT head. Will obtain rib series. Will offer morphine for pain control. Will reassess. Dispo dependent on results from workup. Discharge Plan Departure Patient Disposition: Home Clinical Impression: Multiple rib fractures Instructions: DI for Rib Fracture, How to Prevent Falls Prescriptions: No Action cyanocobalamin (vitamin B-12) 1,000 MCG tablet extended release 1,000 mcg PO QDAY Qty: 0 RF: 0 Alvesco 160 mcg/actuation HFA aerosol inhaler 2 puff INHALATION BID Qty: 6.1 RF: 11 potassium chloride [Klor-Con M20] 20 mEq tablet,ER particles/crystals 20 meq PO DAILY Qty: 30 RF: 11 omeprazole 40 mg capsule,delayed release(DR/EC) 40 mg PO BID Qty: 60 RF: 11 duloxetine 30 mg capsule,delayed release(DR/EC) 30 mg PO DAILY Qty: 90 RF: 3 levothyroxine 150 mcg tablet See Rx Instructions .ROUTE .COMPLEX Qty: 90 RF: 1 chlorthalidone 25 mg tablet 50 mg PO QDAY Qty: 180 RF: 1 albuterol sulfate [Proventil HFA] 90 mcg/actuation HFA aerosol inhaler 2 puff INHALATION Q4HP PRN (Reason: shortness of breath or wheezing) Qty: 2 RF: 3 oxycodone-acetaminophen [Percocet] 5-325 mg tablet 1 tab PO Q8H PRN (Reason: pain) Qty: 10 RF: 0 diphenhydramine HCl [Allergy (diphenhydramine)] 25 mg capsule 25 mg PO Q4-6H PRN (Reason: Itching) RF: 0 fluticasone propionate 50 mcg/actuation spray,suspension 2 spray NASAL BEDTIME PRN (Reason: Allergy Symptoms) RF: 0 Combivent Respimat 20-100 mcg/actuation mist 1 puff INHALATION BID RF: 0 acetaminophen 325 mg Tablet 650 mg PO TID Qty: 60 RF: 0 aspirin 81 mg Tablet,Delayed Release (Dr/Ec) 81 mg PO BID Qty: 60 RF: 0 ibuprofen 400 mg Tablet 400 mg PO Q4HR Qty: 60 RF: 0 tamsulosin [Flomax] 0.4 mg Capsule 0.4 mg PO DAILY Qty: 5 RF: 0 Referrals: Blas Vargas MD [Primary Care Provider] - <Pedro Lucero, - Last Filed: 12/16/20 07:09> Cosign ED Attending Cosignature Attestation: Dr Lucero Co-Sign Statement: I was available for consultation during this patient's emergency department visit. This chart is signed by myself for administrative purposes only. I did not have direct contact with this patient during this visit. They were seen independently by the APC.
[2020-11-29 18:41] VITALS: BP 160/86; PULSE 77; RESP 16; O2SAT 94
== END 2020-11-29 16:40 | disposition home or self-care (01) ==
PROVIDERS: Emergency Provider Student in an Organized Health Care Education/Training Program; PCP Internal Medicine
DX: S22.42XA Multiple fractures of ribs, left side, initial encounter for closed fracture (principal); S09.90XA Unspecified injury of head, initial encounter; W19.XXXA Unspecified fall, initial encounter
CPT/HCPCS: 70450; 71101; 99284

== ENCOUNTER → 2021-03-17 08:54 | Outpatient (CLI) | payer MEDICARE, OTHER, SELFPAY ==
[2020-08-30 21:24] VITALS: BMI 39.1
[2021-03-17 10:14] LABS: COVID19 -Nasal RAPID Negative (Negative)
== END ==
PROVIDERS: PCP Internal Medicine; Referring Provider Internal Medicine; Visit Provider Internal Medicine
DX: Z20.822 Contact with and (suspected) exposure to COVID-19 (principal)
CPT/HCPCS: 87635; C9803

== ENCOUNTER → 2021-03-18 06:49 | Outpatient (CLI) | payer MEDICARE, OTHER, SELFPAY ==
[2020-08-30 21:24] VITALS: BMI 39.1
--- NOTE | 2021-03-21 10:58 | PM.PFT.1 ---
Pulmonary Function Test Referral & Results Date Patient Seen: 03/18/21 Requesting provider: Blas Vargas Indication: COPD Results: The spirometry demonstrates an FVC of 1.40 L which is 35% of predicted. The FEV1 was measured at 0.8 L which is 27% of predicted. The FEV1/FVC ratio was 58 which is 77% of predicted. Following the administration of bronchodilator there was 9% improvement in FEV1 and a 30% improvement in FEF 25-75% Lung volumes show an SVC of 2.16 L which is 51% of predicted. The diffusing capacity was measured at 22.65 which is 80% of predicted. No hemoglobin value was provided, so no correction for potential anemia could be made, if appropriate. The maximum voluntary ventilation was severely reduced Interpretation: This study demonstrates severe obstructive lung disease with FEV1 of less than 1 L. There is minimal evidence of benefit following bronchodilator but there is some evidence particularly in small airway flow as noted above Lung volumes are also reduced suggesting significant restrictive lung disease Diffusing capacity is relatively preserved given the abnormalities in spirometry. Altogether this is consistent with a diagnosis of COPD, severe
== END ==
PROVIDERS: PCP Internal Medicine; Referring Provider Internal Medicine; Visit Provider Internal Medicine
DX: J44.9 Chronic obstructive pulmonary disease, unspecified (principal); Z87.891 Personal history of nicotine dependence
CPT/HCPCS: 94060; 94726; 94729

== ENCOUNTER 2021-03-27 09:25 | Inpatient (IN) | payer MEDICARE, OTHER, SELFPAY ==
[2020-08-30 21:24] VITALS: BMI 39.1
[2021-03-27] VITALS (103 sets, daily range): BP systolic 80–200; BP diastolic 46–124; PULSE 58–110; RESP 12–46; TEMP 35.6–38.3; O2SAT 87–100; BMI 4222.5; BMI 46.0
--- NOTE | 2021-03-27 09:31 | DI.RAD.S_ITS ---
PROCEDURE: XR CHEST 1V INDICATIONS: post intubation TECHNIQUE: One view of the chest was acquired. COMPARISON: None. FINDINGS: Surgical changes and devices: Endotracheal tube is well positioned 4 cm above the bella. A nasogastric tube appears well positioned. Postoperative changes of cervical spine ACDF seen. Lungs and pleura: The lungs have diffuse bilateral perihilar airspace opacities likely pulmonary vascular congestion. No focal consolidation or mass. Mediastinum: Mediastinal contours appear normal. Heart size is enlarged. Bones and chest wall: No suspicious bony lesions. Overlying soft tissues appear unremarkable. IMPRESSION: 1. Cardiomegaly and pulmonary vascular congestion/CHF. 2. Endotracheal tube and nasogastric tube appear well positioned. Dictated by: Damaso Xiao M.D. on 03/27/2021 at 9:01 Approved by: Damaso Xiao M.D. on 03/27/2021 at 9:03
[2021-03-27] MEDS: SODIUM CHLORIDE 0.9% 1,000 ML 999 ML IV (09:39)
[2021-03-27] MEDS: SUCCINYLCHOLINE 200 MG/10 ML VIAL 120 MG IV (09:39)
[2021-03-27] MEDS: ETOMIDATE 2 MG/ML 10 ML VIAL 20 MG IV (09:39)
--- NOTE | 2021-03-27 09:47 | DI.CT.S_ITS ---
PROCEDURE: CT HEAD/BRAIN WO CON INDICATIONS: AMS TECHNIQUE: Noncontrast 4.5 mm thick angled axial sections acquired from the foramen magnum to the vertex, with coronal and sagittal reformats. For radiation dose reduction, the following was used: automated exposure control, adjustment of mA and/or kV according to patient size. COMPARISON: [facility], CT, CT HEAD/BRAIN WO CON, 11/29/2020, 16:49. FINDINGS: Image quality: Excellent. CSF spaces: Basal cisterns are patent. No extra-axial fluid collections. Ventricles are normal in size and shape. Brain: No midline shift. No intracranial masses or hemorrhage. Guerrero-white matter interface is normal. Skull and face: Calvarium and visualized facial bones are intact, without suspicious lesions. Sinuses: Visualized sinuses and mastoids are clear. IMPRESSION: No acute intracranial abnormality. Dictated by: Damaso Xiao M.D. on 03/27/2021 at 11:03 Approved by: Damaso Xiao M.D. on 03/27/2021 at 11:05
--- NOTE | 2021-03-27 09:48 | ED.GENADULT ---
HPI - General Adult General Chief complaint: Unresponsive Stated complaint: SOB Time Seen by Provider: 03/27/21 09:43 Source: EMS Mode of arrival: EMS History of Present Illness HPI narrative: Patient is a 70-year-old male. Arrive by EMS for evaluation of hypoxic and confusion. Review of the patient's prior medical record shows he does have a history of COPD. Approximately 1 week ago you seen by his primary doctor. Was found to be hypoxic. A pulmonary function test. Shows that his COPD is been worsening. Is on home oxygen. EMS received a call this morning. They arrived to the house finding the patient on the ground. He was hypoxic to the low 80s. Was given oxygen. He was able to stand on his own to get into the gurney however his mental status seems to be declining since that time. Patient is unable to provide any HPI. Related Data Home Medications Medication Instructions Recorded Confirmed cyanocobalamin (vitamin B-12) 1,000 mcg PO QDAY #0 04/04/17 03/27/21 1,000 mcg tablet,extended release diphenhydramine HCl 25 mg capsule 25 mg PO Q4-6H PRN 09/14/17 03/27/21 (Allergy (diphenhydramine)) fluticasone propionate 50 2 spray NASAL BEDTIME PRN 02/19/20 03/27/21 mcg/actuation nasal spray,suspension ipratropium 20 mcg-albuterol 100 1 puff INHALATION BID 02/19/20 03/27/21 mcg/actuation mist for inhalation (Combivent Respimat) Previous Rx's Medication Instructions Recorded ciclesonide 160 mcg/actuation 2 puff INHALATION BID #6.1 gram 01/14/20 aerosol inhaler (Alvesco) duloxetine 30 mg capsule,delayed 30 mg PO DAILY #90 cap 05/31/20 release omeprazole 40 mg capsule,delayed 40 mg PO BID #60 cap 05/31/20 release potassium chloride 20 mEq 20 meq PO DAILY #30 tab 05/31/20 tablet,extended release(part/cryst) (Klor-Con M) levothyroxine 150 mcg tablet See Rx Instructions .ROUTE 06/07/20 .COMPLEX #90 tab chlorthalidone 25 mg tablet 50 mg PO QDAY #180 tab 06/16/20 acetaminophen 325 mg tablet 650 mg PO TID #60 tab 08/31/20 aspirin 81 mg tablet,delayed 81 mg PO BID #60 tab 08/31/20 release ibuprofen 400 mg tablet 400 mg PO Q4HR #60 tab 08/31/20 tamsulosin 0.4 mg capsule (Flomax) 0.4 mg PO DAILY #5 cap 08/31/20 albuterol sulfate 90 mcg/actuation 2 puff INHALATION Q4HP PRN #2 03/07/21 aerosol inhaler (Proventil HFA) device triamcinolone acetonide 0.1 % 1 applic TOPICAL TID #80 g 03/21/21 topical cream Allergies Allergy/AdvReac Type Severity Reaction Status Date / Time crab [CRAB] Allergy Severe Throat Verified 03/21/21 10:47 swelling animal dander [ANIMAL DANDER] Allergy Mild Sinus Verified 03/21/21 10:47 congestion, itching, eczema pollen extracts Allergy Unknown Sinus Verified 03/21/21 10:47 [POLLEN EXTRACTS] congestion, itching, eczema Review of Systems Review of Systems ROS Unobtainable: Unobtainable due to medical condition Patient History Medical History Acquired insufficiency of aortic valve (10/08/15) Asthma Cellulitis (~02/2020) Chronic obstructive pulmonary disease (01/19/11) Cobalamin deficiency CTS (carpal tunnel syndrome) Duodenal ulcer Eczema Elevated d-dimer (~02/2020) Essential hypertension Former smoker Gastric ulcer History of malignant neoplasm of prostate Hypothyroidism (08/21/14) Idiopathic peripheral neuropathy Leukocytosis (01/19/11) Low back pain of over 3 months duration (11/15/16) Obesity (01/19/11) Olecranon bursitis of left elbow Osteoarthritis Prostate cancer (2010) Thrombocytosis (01/19/11) Unilateral primary osteoarthritis, right knee Weakness of right lower extremity (11/15/16) Surgical History History of arthroplasty of right knee (05/24/20) History of spinal fusion (2012) History of splenectomy (1975) Status post cataract extraction of both eyes with insertion of intraocular lens Status post wrist surgery (2011) Family History Brother Thyroid cancer Mother Breast cancer Father No problems noted. 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[employer]: [employer] travel history: recent () leisure activities: art (Photography), volunteer work and other (Traveling) Smoking Status: Former smoker Tobacco: How many years used: 15 Smokeless tobacco user: other (Cigarettes) quit status: quit date established (1989) second hand exposure: No alcohol intake: former substance use type: does not use Smoking Status: Former smoker alcohol intake frequency: holidays/special occasions only Substance Use Type: does not use Exam Initial Vital Signs Initial Vital Signs: Vital Signs Temperature 96.5 F L 03/27/21 09:33 Pulse Rate 110 H 03/27/21 09:33 Respiratory Rate 12 03/27/21 09:33 Blood Pressure 132/80 03/27/21 09:33 Pulse Oximetry 96 03/27/21 09:33 Const General: ill appearing HENMT Head: normal to inspection and normocephalic Nose: external nose normal Chest Chest: normal inspection of the chest and No crepitus Resp Effort & Inspection: decreased respiratory effort, labored, respiratory distress and no use of accessory muscles Auscultation: diminished lung sounds Cardio Rate: tachycardic Rhythm: regular rhythm GI Inspection: large pannus Palpation: soft and No firm Back/Spine/Pelvis Back: normal to inspection Skin General: dry skin Neuro Other: Patient did turn and look towards me when I field his name but does not follow any other commands Extrem Other: Bilateral lower extremity swelling upper extremities unremarkable Psych Appearance: disheveled Procedures Intubation Time out performed: Yes sedative: Etomidate Mg Given: 20 paralytic: Succinylcholine Mg Given: 120 Laryngoscope: fiber optic video scope ET Tube Size: 7.5 ET Tube Uncuffed: No Tube Secured Depth (cm): 26 Tube Secured Location: teeth Tube Placement Confirmation: Visualized tube passing through cords, Confirmation by capnometry and Chest Xray Patient Tolerated Procedure: No complications Intubation Complications: none Scores GCS [place]ail coma scale eye opening: Spontaneous [place] coma scale verbal response: None [place] coma scale motor response: None [place] coma scale total score: 6 Course Orders Ordered: ED Orders 03/27/21 09:27 EKG-12 Lead Stat 03/27/21 09:31 Chest [XR chest 1V] Stat 03/27/21 09:37 COVID19 -Nasal swab/Pre-Proc Stat 03/27/21 09:47 CT head/brain wo con Stat 03/27/21 09:51 Acetaminophen Stat Ammonia (NH3) Stat Complete Blood Count AUTO DIFF Stat Comprehensive Metabolic Panel Stat Ethanol (ETOH) Stat Lactate (Lactic Acid) Stat Lipase Stat NT-proBNP (BNP-Adult 18+) Stat Partial Thromboplastin Time Stat Procalcitonin Stat Prothrombin Time INR Stat Salicylate Stat Thyroid Stimulating Hormone Stat Troponin & CK Cardiac Panel Stat 03/27/21 09:54 CT angio chest PE protocol Stat 03/27/21 10:09 Respiratory Panel (Film Array) Stat 03/27/21 10:16 ABG [Arterial Blood Gas] Stat 03/27/21 10:20 Blood Culture Stat 03/27/21 12:05 Urinalysis and Microscopic Stat Urine Culture Stat Urine Drug Screen, Rapid Stat 03/27/21 12:27 ABG [Arterial Blood Gas] Stat Albuterol (Albuterol 2.5 Mg/3 Ml Neb (Adult)) 2.5 mg INH RTQ6HR PRN PRN Reason: Shortness Of Breath Albuterol/Ipratropium (Albuterol/Ipratropium 3 Ml Ampul) 3 ml INH RTQ4HR MANAN Chlorhexidine Gluconate (Chlorhexidine Gluconate 15 Ml Cup) 15 ml PO Q6HR MANAN Enoxaparin Sodium (Enoxaparin 40 Mg/0.4 Ml Syringe) 40 mg SUBCUT DAILY [facility] Last Admin: 03/27/21 15:16 Dose: 40 mg Documented by: VASYL Levofloxacin (Levaquin) 500 mg in 100 mls @ 100 mls/hr IV Q24H MANAN Last Admin: 03/27/21 15:17 Dose: 100 mls/hr Documented by: VASYL Propofol (Propofol) 1,000 mg in 100 mls @ 4.005 mls/hr IV TITRATE MANAN; Protocol Fentanyl 1,000 mcg/ Dextrose 250 mls @ 23.363 mls/hr IV TITRATE MANAN; Protocol Methylprednisolone (Methylprednisolone 125 Mg/2 Ml Vial) 60 mg IV Q6HR [facility] Naloxone HCl (Naloxone 0.4 Mg/Ml Vial) 0.2 mg IV Q2MIN PRN PRN Reason: Opiate Reversal Pantoprazole Sodium (Pantoprazole 40 Mg Vial) 40 mg IV DAILY MANAN Last Admin: 03/27/21 15:17 Dose: 40 mg Documented by: VASYL Discontinued Medications Albuterol/Ipratropium (Albuterol/Ipratropium 3 Ml Ampul) 3 ml INH Q20M MANAN Stop: 03/27/21 13:26 Last Admin: 03/27/21 12:57 Dose: 3 ml Documented by: Admin: 03/27/21 12:56 Dose: 3 ml Documented by: Admin: 03/27/21 12:45 Dose: 3 ml Documented by: FATOU Etomidate (Etomidate 2 Mg/Ml 10 Ml Vial) 20 mg IV NOW ONE Stop: 03/27/21 09:31 Last Admin: 03/27/21 09:39 Dose: 20 mg Documented by: MAINOR Fentanyl (Fentanyl 100 Mcg/2 Ml Inj) 50 mcg IV NOW ONE Stop: 03/27/21 10:00 Last Admin: 03/27/21 10:04 Dose: 50 mcg Documented by: MAINOR Furosemide (Furosemide 40 Mg/4 Ml Vial) 40 mg IV NOW ONE Stop: 03/27/21 11:06 Last Admin: 03/27/21 12:21 Dose: 40 mg Documented by: MAINOR Sodium Chloride (Normal Saline 0.9%) 1,000 mls @ 1,000 mls/hr IV BOLUS ONE Stop: 03/27/21 10:32 Last Infusion: 03/27/21 15:20 Dose: 0 mls/hr Documented by: Infusion: 03/27/21 15:00 Dose: 125 mls/hr Documented by: Admin: 03/27/21 11:00 Dose: 125 mls/hr Documented by: MAINOR Sodium Chloride (Normal Saline 0.9%) 1,000 mls @ 125 mls/hr IV CONT MANAN Last Infusion: 03/27/21 11:00 Dose: 0 mls/hr Documented by: Admin: 03/27/21 09:39 Dose: 999 mls/hr Documented by: MAINOR Propofol (Propofol) 1,000 mg in 100 mls @ 4.005 mls/hr IV TITRATE MANAN; Protocol Last Titration: 03/27/21 15:08 Dose: 20 mcg/kg/min, 16.02 mls/hr Documented by: Titration: 03/27/21 15:00 Dose: 15 mcg/kg/min, 12.015 mls/hr Documented by: Titration: 03/27/21 14:04 Dose: 15 mcg/kg/min, 12.015 mls/hr Documented by: Titration: 03/27/21 12:38 Dose: 10 mcg/kg/min, 8.01 mls/hr Documented by: Titration: 03/27/21 10:20 Dose: 15 mcg/kg/min, 12.015 mls/hr Documented by: Admin: 03/27/21 10:00 Dose: 10 mcg/kg/min, 8.01 mls/hr Documented by: MAINOR Methylprednisolone (Methylprednisolone 125 Mg/2 Ml Vial) 125 mg IV NOW ONE Stop: 03/27/21 12:33 Last Admin: 03/27/21 12:53 Dose: 125 mg Documented by: MAINOR Ondansetron HCl (Ondansetron 4 Mg/2 Ml Inj) 4 mg IV NOW ONE Stop: 03/27/21 10:08 Last Admin: 03/27/21 10:41 Dose: 4 mg Documented by: MAINOR Succinylcholine Chloride (Succinylcholine 200 Mg/10 Ml Vial) 120 mg IV NOW ONE Stop: 03/27/21 09:31 Last Admin: 03/27/21 09:39 Dose: 120 mg Documented by: MAINOR Vital Signs Vital signs: Vital Signs - 8 hr 03/27/21 09:33 03/27/21 09:37 03/27/21 09:40 Temperature 96.5 F L Pulse Rate 110 H 104 H 109 H Respiratory Rate 12 29 H 17 Blood Pressure 132/80 Pulse Oximetry 96 94 96 03/27/21 09:45 03/27/21 09:48 03/27/21 09:50 Temperature 96.1 F L Pulse Rate 93 H 96 H 97 H Respiratory Rate 14 21 30 H Blood Pressure 184/104 H 200/124 H Pulse Oximetry 100 100 98 03/27/21 09:55 03/27/21 10:00 03/27/21 10:05 Temperature Pulse Rate 93 H 93 H 89 Respiratory Rate 20 25 H 20 Blood Pressure 122/86 122/68 Pulse Oximetry 96 97 95 03/27/21 10:09 03/27/21 10:10 03/27/21 10:15 Temperature Pulse Rate 85 86 92 H Respiratory Rate 20 18 20 Blood Pressure 88/55 L 82/52 L 110/57 L Pulse Oximetry 96 94 98 03/27/21 10:20 03/27/21 10:25 03/27/21 10:30 Temperature Pulse Rate 90 80 85 Respiratory Rate 21 25 H 25 H Blood Pressure 113/62 111/62 Pulse Oximetry 97 98 98 03/27/21 10:31 03/27/21 10:35 03/27/21 10:40 Temperature Pulse Rate 75 67 67 Respiratory Rate 25 H 25 H 25 H Blood Pressure 116/56 L 112/59 L 108/58 L Pulse Oximetry 98 98 99 03/27/21 10:45 03/27/21 10:50 03/27/21 10:55 Temperature Pulse Rate 65 65 71 Respiratory Rate 25 H 25 H 23 Blood Pressure 107/58 L 103/59 L 97/54 L Pulse Oximetry 99 91 98 03/27/21 11:00 03/27/21 11:04 03/27/21 11:05 Temperature Pulse Rate 64 65 65 Respiratory Rate 25 H 25 H 25 H Blood Pressure 100/58 L Pulse Oximetry 99 99 99 03/27/21 11:06 03/27/21 11:10 03/27/21 11:15 Temperature Pulse Rate 68 65 62 Respiratory Rate 25 H 25 H 25 H Blood Pressure 100/58 L Pulse Oximetry 99 99 100 03/27/21 11:20 03/27/21 11:24 03/27/21 11:25 Temperature Pulse Rate 63 61 66 Respiratory Rate 25 H 25 H 21 Blood Pressure 80/50 L Pulse Oximetry 100 100 100 03/27/21 11:30 03/27/21 11:35 03/27/21 11:40 Temperature Pulse Rate 68 61 61 Respiratory Rate 25 H 25 H 25 H Blood Pressure 98/67 103/65 Pulse Oximetry 100 100 100 03/27/21 11:45 03/27/21 11:46 03/27/21 11:47 Temperature Pulse Rate 67 65 Respiratory Rate 25 H 20 Blood Pressure 106/57 L 107/63 Pulse Oximetry 97 03/27/21 11:50 03/27/21 12:00 03/27/21 12:01 Temperature 97.3 F L Pulse Rate 61 63 Respiratory Rate 25 H 38 H Blood Pressure 102/70 97/57 L Pulse Oximetry 96 99 03/27/21 12:05 03/27/21 12:10 03/27/21 12:16 Temperature 97.9 F 98.2 F Pulse Rate 58 L 59 L Respiratory Rate 25 H 25 H Blood Pressure 102/59 L 98/56 L 101/57 L Pulse Oximetry 98 93 03/27/21 12:20 03/27/21 12:25 03/27/21 12:30 Temperature 98.8 F 98.8 F Pulse Rate 62 63 Respiratory Rate 25 H 26 H Blood Pressure 102/55 L 92/56 L 89/54 L Pulse Oximetry 91 94 03/27/21 12:35 Temperature 98.8 F Pulse Rate 60 Respiratory Rate 25 H Blood Pressure 97/57 L Pulse Oximetry 96 Medical Decision Making Medical Records Medical records reviewed: Yes I reviewed the patient's medical records. Lab Data Lab results reviewed: Yes I reviewed the patient's lab results. Result diagrams: 03/27/21 09:51 03/27/21 09:51 Labs: Lab Results 03/27/21 03/27/21 03/27/21 Range/Units 09:37 09:51 09:51 WBC 12.7 H (4.5-11.0) X10^3/uL RBC 4.46 L (4.5-5.9) X10^6/uL Hgb 11.4 L (13.5-17.5) g/dL Hct 37.8 L (41-53) % MCV 84.8 (80-100) fL MCH 25.6 L (26-34) PG MCHC 30.2 (30-36) % RDW 15.5 H (11.6-14.8) % Plt Count 470 H (150-400) X10^3/uL Neut % (Auto) Not Reportable Lymph % (Auto) Not Reportable [place] % (Auto) Not Reportable Eos % (Auto) Not Reportable Baso % (Auto) Not Reportable Lymph # (Auto) Not Reportable [place] # (Auto) Not Reportable Baso # (Auto) Not Reportable Total Counted 100 Seg Neutrophils % 82.0 H (38-70) % Band Neutrophils % 3.0 (3-7) % Lymphocytes % (Manual) 9.0 L (25-45) % Monocytes % (Manual) 6.0 (2-11) % Neutrophils # (Manual) 06672 H (6088-2863) /uL Nucleated RBCs 4 H ( - 0) #/Diff RBC Morphology Not Reportable Polychromasia 1+ H Poikilocytosis 1+ H Anisocytosis 2+ H Target Cells 2+ H PT (10.1-12.7) SECONDS INR (0.9-1.3) APTT (26.4-36.2) SECONDS ABG pH (7.35-7.45) ABG pCO2 (35-45) mmHg ABG pO2 (80-100) mmHg ABG HCO3 (22-26) mmol/L ABG Total CO2 (21-31) mmol/L ABG O2 Saturation (95-100) % ABG Base Excess (-2-2) mmol/L FiO2 Sodium 140 (137-145) mmol/L Potassium 4.7 (3.4-5.1) mmol/L Chloride 94 L (98-107) mmol/L Carbon Dioxide 40 H* (22-32) mmol/L BUN 34 H (9-20) mg/dL Creatinine 1.08 (0.66-1.25) mg/dL Estimated GFR > 60.0 (>60) mL/min BUN/Creatinine Ratio 31.5 H (6-22) Glucose 111 H (80-110) mg/dL Lactate (0.7-2.1) mmol/L Calcium 8.6 (8.4-10.2) mg/dL Total Bilirubin 0.5 (0.2-1.3) mg/dL AST 31 (17-59) IU/L ALT 34 (<50) IU/L Alkaline Phosphatase 103 (38-126) U/L Ammonia (9-30) umol/L Total Creatine Kinase (55-170) U/L CK-MB (CK-2) CK-MB (CK-2) Rel Index Troponin I (0.01-0.034) ng/mL NT-Pro-B Natriuret Pep (<125) pg/mL Total Protein 7.7 (6.3-8.2) g/dL Albumin 4.0 (3.5-5.0) g/dL Globulin 3.7 (1.7-4.1) g/dL Albumin/Globulin Ratio 1.1 (1.0-2.8) Lipase 53 (23-300) U/L Procalcitonin 0.09 (<0.5) ng/mL TSH (0.47-4.68) uIU/mL Urine Color Urine Appearance Urine pH (4.5-8.0) Ur Specific [place] (1.000-1.035) Urine Protein (Negative) Urine Glucose (UA) (Negative) g/dL Urine Ketones (NEGATIVE) Urine Occult Blood (Negative) Urine Nitrate (Negative) Urine Bilirubin (NEGATIVE) Urine Urobilinogen (0.2) E.U./dL Ur Leukocyte Esterase (NEGATIVE) Urine RBC (0-5/HPF) Urine WBC (0-5/HPF) Ur Transition Epith Cell (0-5/HPF) Amorphous Sediment Urine Bacteria (None) Ur Culture Indicated? Salicylates (<20) mg/dL U Opiates 300ng/mL cut (Negative) Ur Oxycodone Screen (Negative) Urine Methadone Screen (Negative) Acetaminophen (10-30) ug/mL Ur Barbiturates Screen (Negative) U Tricyclic Antidepress (Negative) Ur Phencyclidine Scrn (Negative) Ur Amphetamines Screen (Negative) U Methamphetamines Scrn (Negative) Ur MDMA Scrn (Ecstasy) (Negative) U Benzodiazepines Scrn (Negative) Urine Cocaine Screen (Negative) U Marijuana (THC) Screen (Negative) Ethyl Alcohol ( - 10) mg/dL Chlamy pneumoniae PCR (Not Detect) Adenovirus (PCR) (Not Detect) B. pertussis DNA (PCR) (Not Detecte) B.parapertussis DNA PCR (Not Detecte) Coronavirus OC43 (PCR) (Not Detect) Coronavirus HKU1 (PCR) (Not Detect) Coronavirus 229E (PCR) (Not Detect) SARS-CoV-2 (PCR) Negative (Negative) Coronavirus NL63 (PCR) (Not Detect) Human Metapneumovir PCR (Not Detect) Influenza Type A (PCR) (Not Detect) Influenza Type B (PCR) (Not Detect) M. pneumoniae (PCR) (Not Detect) Parainfluenza 1 (PCR) (Not Detect) Parainfluenza 2 (PCR) (Not Detect) Parainfluenza 3 (PCR) (Not Detect) Parainfluenza 4 (PCR) (Not Detect) RSV (PCR) (Not Detect) Entero/Rhino (PCR) (Not Detect) 03/27/21 03/27/21 03/27/21 Range/Units 09:51 09:51 09:51 WBC (4.5-11.0) X10^3/uL RBC (4.5-5.9) X10^6/uL Hgb (13.5-17.5) g/dL Hct (41-53) % MCV (80-100) fL MCH (26-34) PG MCHC (30-36) % RDW (11.6-14.8) % Plt Count (150-400) X10^3/uL Neut % (Auto) Lymph % (Auto) [place] % (Auto) Eos % (Auto) Baso % (Auto) Lymph # (Auto) [place] # (Auto) Baso # (Auto) Total Counted Seg Neutrophils % (38-70) % Band Neutrophils % (3-7) % Lymphocytes % (Manual) (25-45) % Monocytes % (Manual) (2-11) % Neutrophils # (Manual) (6358-6328) /uL Nucleated RBCs ( - 0) #/Diff RBC Morphology Polychromasia Poikilocytosis Anisocytosis Target Cells PT 12.5 (10.1-12.7) SECONDS INR 1.1 (0.9-1.3) APTT 33 (26.4-36.2) SECONDS ABG pH (7.35-7.45) ABG pCO2 (35-45) mmHg ABG pO2 (80-100) mmHg ABG HCO3 (22-26) mmol/L ABG Total CO2 (21-31) mmol/L ABG O2 Saturation (95-100) % ABG Base Excess (-2-2) mmol/L FiO2 Sodium (137-145) mmol/L Potassium (3.4-5.1) mmol/L Chloride (98-107) mmol/L Carbon Dioxide (22-32) mmol/L BUN (9-20) mg/dL Creatinine (0.66-1.25) mg/dL Estimated GFR (>60) mL/min BUN/Creatinine Ratio (6-22) Glucose (80-110) mg/dL Lactate 1.1 (0.7-2.1) mmol/L Calcium (8.4-10.2) mg/dL Total Bilirubin (0.2-1.3) mg/dL AST (17-59) IU/L ALT (<50) IU/L Alkaline Phosphatase (38-126) U/L Ammonia (9-30) umol/L Total Creatine Kinase 50 L (55-170) U/L CK-MB (CK-2) TNP CK-MB (CK-2) Rel Index TNP Troponin I 0.016 (0.01-0.034) ng/mL NT-Pro-B Natriuret Pep 6240 H (<125) pg/mL Total Protein (6.3-8.2) g/dL Albumin (3.5-5.0) g/dL Globulin (1.7-4.1) g/dL Albumin/Globulin Ratio (1.0-2.8) Lipase (23-300) U/L Procalcitonin (<0.5) ng/mL TSH (0.47-4.68) uIU/mL Urine Color Urine Appearance Urine pH (4.5-8.0) Ur Specific [place] (1.000-1.035) Urine Protein (Negative) Urine Glucose (UA) (Negative) g/dL Urine Ketones (NEGATIVE) Urine Occult Blood (Negative) Urine Nitrate (Negative) Urine Bilirubin (NEGATIVE) Urine Urobilinogen (0.2) E.U./dL Ur Leukocyte Esterase (NEGATIVE) Urine RBC (0-5/HPF) Urine WBC (0-5/HPF) Ur Transition Epith Cell (0-5/HPF) Amorphous Sediment Urine Bacteria (None) Ur Culture Indicated? Salicylates (<20) mg/dL U Opiates 300ng/mL cut (Negative) Ur Oxycodone Screen (Negative) Urine Methadone Screen (Negative) Acetaminophen (10-30) ug/mL Ur Barbiturates Screen (Negative) U Tricyclic Antidepress (Negative) Ur Phencyclidine Scrn (Negative) Ur Amphetamines Screen (Negative) U Methamphetamines Scrn (Negative) Ur MDMA Scrn (Ecstasy) (Negative) U Benzodiazepines Scrn (Negative) Urine Cocaine Screen (Negative) U Marijuana (THC) Screen (Negative) Ethyl Alcohol ( - 10) mg/dL Chlamy pneumoniae PCR (Not Detect) Adenovirus (PCR) (Not Detect) B. pertussis DNA (PCR) (Not Detecte) B.parapertussis DNA PCR (Not Detecte) Coronavirus OC43 (PCR) (Not Detect) Coronavirus HKU1 (PCR) (Not Detect) Coronavirus 229E (PCR) (Not Detect) SARS-CoV-2 (PCR) (Negative) Coronavirus NL63 (PCR) (Not Detect) Human Metapneumovir PCR (Not Detect) Influenza Type A (PCR) (Not Detect) Influenza Type B (PCR) (Not Detect) M. pneumoniae (PCR) (Not Detect) Parainfluenza 1 (PCR) (Not Detect) Parainfluenza 2 (PCR) (Not Detect) Parainfluenza 3 (PCR) (Not Detect) Parainfluenza 4 (PCR) (Not Detect) RSV (PCR) (Not Detect) Entero/Rhino (PCR) (Not Detect) 03/27/21 03/27/21 03/27/21 Range/Units 09:51 09:51 09:51 WBC (4.5-11.0) X10^3/uL RBC (4.5-5.9) X10^6/uL Hgb (13.5-17.5) g/dL Hct (41-53) % MCV (80-100) fL MCH (26-34) PG MCHC (30-36) % RDW (11.6-14.8) % Plt Count (150-400) X10^3/uL Neut % (Auto) Lymph % (Auto) [place] % (Auto) Eos % (Auto) Baso % (Auto) Lymph # (Auto) [place] # (Auto) Baso # (Auto) Total Counted Seg Neutrophils % (38-70) % Band Neutrophils % (3-7) % Lymphocytes % (Manual) (25-45) % Monocytes % (Manual) (2-11) % Neutrophils # (Manual) (9958-6975) /uL Nucleated RBCs ( - 0) #/Diff RBC Morphology Polychromasia Poikilocytosis Anisocytosis Target Cells PT (10.1-12.7) SECONDS INR (0.9-1.3) APTT (26.4-36.2) SECONDS ABG pH (7.35-7.45) ABG pCO2 (35-45) mmHg ABG pO2 (80-100) mmHg ABG HCO3 (22-26) mmol/L ABG Total CO2 (21-31) mmol/L ABG O2 Saturation (95-100) % ABG Base Excess (-2-2) mmol/L FiO2 Sodium (137-145) mmol/L Potassium (3.4-5.1) mmol/L Chloride (98-107) mmol/L Carbon Dioxide (22-32) mmol/L BUN (9-20) mg/dL Creatinine (0.66-1.25) mg/dL Estimated GFR (>60) mL/min BUN/Creatinine Ratio (6-22) Glucose (80-110) mg/dL Lactate (0.7-2.1) mmol/L Calcium (8.4-10.2) mg/dL Total Bilirubin (0.2-1.3) mg/dL AST (17-59) IU/L ALT (<50) IU/L Alkaline Phosphatase (38-126) U/L Ammonia 42 H (9-30) umol/L Total Creatine Kinase (55-170) U/L CK-MB (CK-2) CK-MB (CK-2) Rel Index Troponin I (0.01-0.034) ng/mL NT-Pro-B Natriuret Pep (<125) pg/mL Total Protein (6.3-8.2) g/dL Albumin (3.5-5.0) g/dL Globulin (1.7-4.1) g/dL Albumin/Globulin Ratio (1.0-2.8) Lipase (23-300) U/L Procalcitonin (<0.5) ng/mL TSH 3.32 (0.47-4.68) uIU/mL Urine Color Urine Appearance Urine pH (4.5-8.0) Ur Specific [place] (1.000-1.035) Urine Protein (Negative) Urine Glucose (UA) (Negative) g/dL Urine Ketones (NEGATIVE) Urine Occult Blood (Negative) Urine Nitrate (Negative) Urine Bilirubin (NEGATIVE) Urine Urobilinogen (0.2) E.U./dL Ur Leukocyte Esterase (NEGATIVE) Urine RBC (0-5/HPF) Urine WBC (0-5/HPF) Ur Transition Epith Cell (0-5/HPF) Amorphous Sediment Urine Bacteria (None) Ur Culture Indicated? Salicylates < 1.0 (<20) mg/dL U Opiates 300ng/mL cut (Negative) Ur Oxycodone Screen (Negative) Urine Methadone Screen (Negative) Acetaminophen < 10 L (10-30) ug/mL Ur Barbiturates Screen (Negative) U Tricyclic Antidepress (Negative) Ur Phencyclidine Scrn (Negative) Ur Amphetamines Screen (Negative) U Methamphetamines Scrn (Negative) Ur MDMA Scrn (Ecstasy) (Negative) U Benzodiazepines Scrn (Negative) Urine Cocaine Screen (Negative) U Marijuana (THC) Screen (Negative) Ethyl Alcohol < 10 ( - 10) mg/dL Chlamy pneumoniae PCR (Not Detect) Adenovirus (PCR) (Not Detect) B. pertussis DNA (PCR) (Not Detecte) B.parapertussis DNA PCR (Not Detecte) Coronavirus OC43 (PCR) (Not Detect) Coronavirus HKU1 (PCR) (Not Detect) Coronavirus 229E (PCR) (Not Detect) SARS-CoV-2 (PCR) (Negative) Coronavirus NL63 (PCR) (Not Detect) Human Metapneumovir PCR (Not Detect) Influenza Type A (PCR) (Not Detect) Influenza Type B (PCR) (Not Detect) M. pneumoniae (PCR) (Not Detect) Parainfluenza 1 (PCR) (Not Detect) Parainfluenza 2 (PCR) (Not Detect) Parainfluenza 3 (PCR) (Not Detect) Parainfluenza 4 (PCR) (Not Detect) RSV (PCR) (Not Detect) Entero/Rhino (PCR) (Not Detect) 03/27/21 03/27/21 03/27/21 Range/Units 10:09 10:16 12:05 WBC (4.5-11.0) X10^3/uL RBC (4.5-5.9) X10^6/uL Hgb (13.5-17.5) g/dL Hct (41-53) % MCV (80-100) fL MCH (26-34) PG MCHC (30-36) % RDW (11.6-14.8) % Plt Count (150-400) X10^3/uL Neut % (Auto) Lymph % (Auto) [place] % (Auto) Eos % (Auto) Baso % (Auto) Lymph # (Auto) [place] # (Auto) Baso # (Auto) Total Counted Seg Neutrophils % (38-70) % Band Neutrophils % (3-7) % Lymphocytes % (Manual) (25-45) % Monocytes % (Manual) (2-11) % Neutrophils # (Manual) (5661-2482) /uL Nucleated RBCs ( - 0) #/Diff RBC Morphology Polychromasia Poikilocytosis Anisocytosis Target Cells PT (10.1-12.7) SECONDS INR (0.9-1.3) APTT (26.4-36.2) SECONDS ABG pH 7.19 L* (7.35-7.45) ABG pCO2 114.6 H* (35-45) mmHg ABG pO2 31 L* (80-100) mmHg ABG HCO3 44 H (22-26) mmol/L ABG Total CO2 47 H (21-31) mmol/L ABG O2 Saturation 41 L* (95-100) % ABG Base Excess 16.0 H (-2-2) mmol/L FiO2 80 Sodium (137-145) mmol/L Potassium (3.4-5.1) mmol/L Chloride (98-107) mmol/L Carbon Dioxide (22-32) mmol/L BUN (9-20) mg/dL Creatinine (0.66-1.25) mg/dL Estimated GFR (>60) mL/min BUN/Creatinine Ratio (6-22) Glucose (80-110) mg/dL Lactate (0.7-2.1) mmol/L Calcium (8.4-10.2) mg/dL Total Bilirubin (0.2-1.3) mg/dL AST (17-59) IU/L ALT (<50) IU/L Alkaline Phosphatase (38-126) U/L Ammonia (9-30) umol/L Total Creatine Kinase (55-170) U/L CK-MB (CK-2) CK-MB (CK-2) Rel Index Troponin I (0.01-0.034) ng/mL NT-Pro-B Natriuret Pep (<125) pg/mL Total Protein (6.3-8.2) g/dL Albumin (3.5-5.0) g/dL Globulin (1.7-4.1) g/dL Albumin/Globulin Ratio (1.0-2.8) Lipase (23-300) U/L Procalcitonin (<0.5) ng/mL TSH (0.47-4.68) uIU/mL Urine Color Urine Appearance Urine pH (4.5-8.0) Ur Specific [place] (1.000-1.035) Urine Protein (Negative) Urine Glucose (UA) (Negative) g/dL Urine Ketones (NEGATIVE) Urine Occult Blood (Negative) Urine Nitrate (Negative) Urine Bilirubin (NEGATIVE) Urine Urobilinogen (0.2) E.U./dL Ur Leukocyte Esterase (NEGATIVE) Urine RBC (0-5/HPF) Urine WBC (0-5/HPF) Ur Transition Epith Cell (0-5/HPF) Amorphous Sediment Urine Bacteria (None) Ur Culture Indicated? Salicylates (<20) mg/dL U Opiates 300ng/mL cut Negative (Negative) Ur Oxycodone Screen Negative (Negative) Urine Methadone Screen Negative (Negative) Acetaminophen (10-30) ug/mL Ur Barbiturates Screen Negative (Negative) U Tricyclic Antidepress Negative (Negative) Ur Phencyclidine Scrn Negative (Negative) Ur Amphetamines Screen Negative (Negative) U Methamphetamines Scrn Negative (Negative) Ur MDMA Scrn (Ecstasy) Negative (Negative) U Benzodiazepines Scrn Negative (Negative) Urine Cocaine Screen Negative (Negative) U Marijuana (THC) Screen Positive H (Negative) Ethyl Alcohol ( - 10) mg/dL Chlamy pneumoniae PCR Not detected (Not Detect) Adenovirus (PCR) Not detected (Not Detect) B. pertussis DNA (PCR) Not detected (Not Detecte) B.parapertussis DNA PCR Not detected (Not Detecte) Coronavirus OC43 (PCR) Not detected (Not Detect) Coronavirus HKU1 (PCR) Not detected (Not Detect) Coronavirus 229E (PCR) Not detected (Not Detect) SARS-CoV-2 (PCR) Not detected (Negative) Coronavirus NL63 (PCR) Not detected (Not Detect) Human Metapneumovir PCR Not detected (Not Detect) Influenza Type A (PCR) Not detected (Not Detect) Influenza Type B (PCR) Not detected (Not Detect) M. pneumoniae (PCR) Not detected (Not Detect) Parainfluenza 1 (PCR) Not detected (Not Detect) Parainfluenza 2 (PCR) Not detected (Not Detect) Parainfluenza 3 (PCR) Not detected (Not Detect) Parainfluenza 4 (PCR) Not detected (Not Detect) RSV (PCR) Not detected (Not Detect) Entero/Rhino (PCR) Not detected (Not Detect) 03/27/21 03/27/21 Range/Units 12:05 12:27 WBC (4.5-11.0) X10^3/uL RBC (4.5-5.9) X10^6/uL Hgb (13.5-17.5) g/dL Hct (41-53) % MCV (80-100) fL MCH (26-34) PG MCHC (30-36) % RDW (11.6-14.8) % Plt Count (150-400) X10^3/uL Neut % (Auto) Lymph % (Auto) [place] % (Auto) Eos % (Auto) Baso % (Auto) Lymph # (Auto) [place] # (Auto) Baso # (Auto) Total Counted Seg Neutrophils % (38-70) % Band Neutrophils % (3-7) % Lymphocytes % (Manual) (25-45) % Monocytes % (Manual) (2-11) % Neutrophils # (Manual) (8536-4121) /uL Nucleated RBCs ( - 0) #/Diff RBC Morphology Polychromasia Poikilocytosis Anisocytosis Target Cells PT (10.1-12.7) SECONDS INR (0.9-1.3) APTT (26.4-36.2) SECONDS ABG pH 7.29 L* (7.35-7.45) ABG pCO2 89.7 H* (35-45) mmHg ABG pO2 25 L* (80-100) mmHg ABG HCO3 43 H (22-26) mmol/L ABG Total CO2 46 H (21-31) mmol/L ABG O2 Saturation 34 L* (95-100) % ABG Base Excess 17.0 H (-2-2) mmol/L FiO2 80 Sodium (137-145) mmol/L Potassium (3.4-5.1) mmol/L Chloride (98-107) mmol/L Carbon Dioxide (22-32) mmol/L BUN (9-20) mg/dL Creatinine (0.66-1.25) mg/dL Estimated GFR (>60) mL/min BUN/Creatinine Ratio (6-22) Glucose (80-110) mg/dL Lactate (0.7-2.1) mmol/L Calcium (8.4-10.2) mg/dL Total Bilirubin (0.2-1.3) mg/dL AST (17-59) IU/L ALT (<50) IU/L Alkaline Phosphatase (38-126) U/L Ammonia (9-30) umol/L Total Creatine Kinase (55-170) U/L CK-MB (CK-2) CK-MB (CK-2) Rel Index Troponin I (0.01-0.034) ng/mL NT-Pro-B Natriuret Pep (<125) pg/mL Total Protein (6.3-8.2) g/dL Albumin (3.5-5.0) g/dL Globulin (1.7-4.1) g/dL Albumin/Globulin Ratio (1.0-2.8) Lipase (23-300) U/L Procalcitonin (<0.5) ng/mL TSH (0.47-4.68) uIU/mL Urine Color Yellow Urine Appearance Clear Urine pH 5.0 (4.5-8.0) Ur Specific [place] >=1.030 H (1.000-1.035) Urine Protein 2+ H (Negative) Urine Glucose (UA) Trace H (Negative) g/dL Urine Ketones Negative (NEGATIVE) Urine Occult Blood Negative (Negative) Urine Nitrate Negative (Negative) Urine Bilirubin Negative (NEGATIVE) Urine Urobilinogen 0.2 (0.2) E.U./dL Ur Leukocyte Esterase Negative (NEGATIVE) Urine RBC None seen (0-5/HPF) Urine WBC 1-5/hpf (0-5/HPF) Ur Transition Epith Cell 1-5/hpf (0-5/HPF) Amorphous Sediment 2+ Urine Bacteria Moderate (10-30) H (None) Ur Culture Indicated? Specimen cultured Salicylates (<20) mg/dL U Opiates 300ng/mL cut (Negative) Ur Oxycodone Screen (Negative) Urine Methadone Screen (Negative) Acetaminophen (10-30) ug/mL Ur Barbiturates Screen (Negative) U Tricyclic Antidepress (Negative) Ur Phencyclidine Scrn (Negative) Ur Amphetamines Screen (Negative) U Methamphetamines Scrn (Negative) Ur MDMA Scrn (Ecstasy) (Negative) U Benzodiazepines Scrn (Negative) Urine Cocaine Screen (Negative) U Marijuana (THC) Screen (Negative) Ethyl Alcohol ( - 10) mg/dL Chlamy pneumoniae PCR (Not Detect) Adenovirus (PCR) (Not Detect) B. pertussis DNA (PCR) (Not Detecte) B.parapertussis DNA PCR (Not Detecte) Coronavirus OC43 (PCR) (Not Detect) Coronavirus HKU1 (PCR) (Not Detect) Coronavirus 229E (PCR) (Not Detect) SARS-CoV-2 (PCR) (Negative) Coronavirus NL63 (PCR) (Not Detect) Human Metapneumovir PCR (Not Detect) Influenza Type A (PCR) (Not Detect) Influenza Type B (PCR) (Not Detect) M. pneumoniae (PCR) (Not Detect) Parainfluenza 1 (PCR) (Not Detect) Parainfluenza 2 (PCR) (Not Detect) Parainfluenza 3 (PCR) (Not Detect) Parainfluenza 4 (PCR) (Not Detect) RSV (PCR) (Not Detect) Entero/Rhino (PCR) (Not Detect) Imaging Data CT scan - head: Radiologist's Impression: [address] [id number] Scan ReportSigned Patient: Tanner Hauser R#: [id number]: 1950cct:[id number]/Sex: 70 / MDate of Service: 03/27/21Loc: EDAccession Number: [id number]? ? Procedure: CT head/brain wo con Ordering Provider: Pedro Lucero D.O. PROCEDURE:? CT HEAD/BRAIN WO CON ? INDICATIONS:? AMS ? TECHNIQUE:? Noncontrast 4.5 mm thick angled axial sections acquired from the foramen magnum to the vertex, with coronal and sagittal reformats.? For radiation dose reduction, the following was used:? automated exposure control, adjustment of mA and/or kV according to patient size.? ? COMPARISON:? [facility], CT, CT HEAD/BRAIN WO CON, 11/29/2020, 16:49. ? FINDINGS:? Image quality:? Excellent.? ? CSF spaces:? Basal cisterns are patent.? No extra-axial fluid collections.? Ventricles are normal in size and shape.? ? Brain:? No midline shift.? No intracranial masses or hemorrhage.? Guerrero-white matter interface is normal.? ? Skull and face:? Calvarium and visualized facial bones are intact, without suspicious lesions.? ? Sinuses:? Visualized sinuses and mastoids are clear.? ? IMPRESSION:? No acute intracranial abnormality. ? ? Dictated by: Damaso Xiao M.D. on 03/27/2021 at 11:03? ?? Approved by: Damaso Xiao M.D. on 03/27/2021 at 11:05?? CT scan - chest: Radiologist's Impression: [place] [address] CT Scan Report Signed Patient: Tanner Hauser MR#: [id number] : 1950 Acct:[id number] Age/Sex: 70 / M Date of Service: 03/27/21 Loc: ED Accession Number: [id number] ?? Procedure: CT angio chest PE protocol Ordering Provider: Pedro Lucero D.O. PROCEDURE:? CT ANGIO CHEST PE PROTOCOL ? INDICATIONS:? Chest pain, shortness of breath, tachycardia ? TECHNIQUE:? After the administration of intravenous contrast, 2 mm thick sections acquired from the pulmonary apices to the posterior costophrenic angles.? 3-dimensional maximum intensity projection (MIP) coronal and sagittal reformats were then acquired through the thorax.? For radiation dose reduction, the following was used:? automated exposure control, adjustment of mA and/or kV according to patient size.? ? COMPARISON:? [facility], CT, CT ANGIO CHEST PE PROTOCOL, 02/24/2020, 16:32. ? FINDINGS:? Image quality:? Excellent.? ? Pulmonary arteries:? Pulmonary arteries are normal in size, and demonstrate no intraluminal filling defects to suggest central pulmonary embolism.? ? Lungs and pleura:? Endotracheal tube is in good position above the bella.? There is bibasilar atelectasis.? No pleural effusions or pneumothorax.? Central and peripheral airways are patent.? ? Mediastinum:? Heart size is enlarged, without pericardial effusion.? No mediastinal or hilar adenopathy.? Thoracic aorta is normal in caliber and enhancement.? Esophagus is normal in caliber, without hiatal hernia.? Gastric tube is well positioned with the tip in the stomach. ? Bones and chest wall:? No suspicious bony lesions.? Ribs and thoracic spine appear intact throughout.? Thyroid gland is normal.? No axillary or supraclavicular adenopathy.? Degenerative disc disease at T11-12.? ACDF in the lower thoracic spine. ? Abdomen:? Visualized upper abdominal solid organs appear normal in the early arterial phase of enhancement.? ? IMPRESSION:? 1. No pulmonary embolism. 2. Bibasilar atelectasis. 3. Endotracheal tube and gastric tube appear well positioned.? ? ? Dictated by: Damaso Xiao M.D. on 03/27/2021 at 11:06 ? ? Approved by: Damaso Xiao M.D. on 03/27/2021 at 11:14? ECG Data Attestation: I personally reviewed and interpreted this ECG as follows: Interpretation: Sinus rhythm Ventricular rate is 63 Normal axis Normal QRS Normal QTC No ST T wave changes MDM Narrative Medical decision making narrative: EMS reports that the patient was able to standing get on their gurney however upon arrival here to the emergency department he was very obtunded. Was hypoxic despite the non-rebreather. I did feel that intubating the patient was the best course of action. He was intubated with 1st pass success using succinylcholine and etomidate. Patient's oxygen saturations were never below 90% during this process. Afterwards he was sedated on propofol with opioid management as well. Initial ABG shows that he is hypercarbic with a CO2 of 114. Respiratory therapy states this was a venous sample however the PO2 in this does show hypoxia. His oxygen saturations were 100% on the monitor. I do suspect that his altered mental status was related to the hypercarbia. CT scans unremarkable. No signs of trauma. He did have purposeful movements with all 4 of his extremities during the time he was intubated. Repeat ABG does show improvement of pH and lowering of pCO2 however once again respiratory therapy states this was a arterial sample in his PO2 was low. He was given nebulizer treatments. Started on steroids. Discussed the case with Dr. Lacy who is on-call for the patient's primary provider. We will admit for further evaluation and treatment. Critical Care Time Critical Care Time Critical Care Time: Yes Total Critical Care Time: 45 Attestation: The high probability of a clinically significant, sudden or life threatening deterioration of the respiratory system(s) required my full and direct attention, intervention and personal management. The aggregate critical care time was [45 minutes. This time is in addition to time spent performing reported procedures but includes the following: [X Data Review and interpretation [X Patient assessment and monitoring of vital signs [X Documentation [X Medication orders and management Discharge Plan Departure Patient Disposition: Admitted As Inpatient Clinical Impression: Acute hypercapnic respiratory failure, COPD (chronic obstructive pulmonary disease), Altered mental status Admit Date/Time: 03/27/21 12:35 Admit Provider: Blas Vargas
--- NOTE | 2021-03-27 09:54 | DI.CT.S_ITS ---
PROCEDURE: CT ANGIO CHEST PE PROTOCOL INDICATIONS: Chest pain, shortness of breath, tachycardia TECHNIQUE: After the administration of intravenous contrast, 2 mm thick sections acquired from the pulmonary apices to the posterior costophrenic angles. 3-dimensional maximum intensity projection (MIP) coronal and sagittal reformats were then acquired through the thorax. For radiation dose reduction, the following was used: automated exposure control, adjustment of mA and/or kV according to patient size. COMPARISON: [facility], CT, CT ANGIO CHEST PE PROTOCOL, 02/24/2020, 16:32. FINDINGS: Image quality: Excellent. Pulmonary arteries: Pulmonary arteries are normal in size, and demonstrate no intraluminal filling defects to suggest central pulmonary embolism. Lungs and pleura: Endotracheal tube is in good position above the bella. There is bibasilar atelectasis. No pleural effusions or pneumothorax. Central and peripheral airways are patent. Mediastinum: Heart size is enlarged, without pericardial effusion. No mediastinal or hilar adenopathy. Thoracic aorta is normal in caliber and enhancement. Esophagus is normal in caliber, without hiatal hernia. Gastric tube is well positioned with the tip in the stomach. Bones and chest wall: No suspicious bony lesions. Ribs and thoracic spine appear intact throughout. Thyroid gland is normal. No axillary or supraclavicular adenopathy. Degenerative disc disease at T11-12. ACDF in the lower thoracic spine. Abdomen: Visualized upper abdominal solid organs appear normal in the early arterial phase of enhancement. IMPRESSION: 1. No pulmonary embolism. 2. Bibasilar atelectasis. 3. Endotracheal tube and gastric tube appear well positioned. Dictated by: Damaso Xiao M.D. on 03/27/2021 at 11:06 Approved by: Damaso Xiao M.D. on 03/27/2021 at 11:14
[2021-03-27] MEDS: propofoL 1,000 MG/100 ML VIAL 8.01 MG IV (10:00)
[2021-03-27 10:02] LABS: COVID19 -Nasal RAPID Negative (Negative)
[2021-03-27] MEDS: fentaNYL 100 MCG/2 ML INJ 50 MCG IV (10:04)
[2021-03-27] MEDS: fentaNYL 100 MCG/2 ML INJ (10:20)
[2021-03-27] MEDS: HYDROMORPHONE 0.5 MG INJ 1 MG ×3 (10:32→14:15)
[2021-03-27 10:33] LABS: INR 1.1 (0.9-1.3); Prothrombin Time 12.5 SECONDS (10.1-12.7)
[2021-03-27 10:36] LABS: PTT Partial Thromboplastin Tim 33 SECONDS (26.4-36.2)
[2021-03-27 10:37] LABS: Ammonia (NH3) 42 umol/L (9-30); Creatine Kinase 50 U/L (55-170); Lactate (Lactic Acid) 1.1 mmol/L (0.7-2.1)
[2021-03-27] MEDS: ONDANSETRON 4 MG/2 ML INJ IV (10:41)
[2021-03-27 10:44] LABS: Hematocrit 37.8 % (41-53); Hemoglobin 11.4 g/dL (13.5-17.5); Mean Corpuscular HGB Conc 30.2 % (30-36); Mean Corpuscular Hemoglobin 25.6 PG (26-34); Mean Corpuscular Volume 84.8 fL (80-100); Platelet Count 470 X10^3/uL (150-400); Red Blood Cell Count 4.46 X10^6/uL (4.5-5.9); Red Cell Distribution Width 15.5 % (11.6-14.8); White Blood Cell Count 12.7 X10^3/uL (4.5-11.0)
[2021-03-27 10:45] LABS: Add Manual Diff / Slide Review YES
[2021-03-27 10:50] LABS: Alanine Aminotransferase 34 IU/L (<50); Albumin Globulin Ratio 1.1 (1.0-2.8); Alkaline Phosphatase 103 U/L (38-126); Aspartate Aminotransferase 31 IU/L (17-59); BUN Creatinine Ratio 31.5 (6-22); Bilirubin Total 0.5 mg/dL (0.2-1.3); Blood Urea Nitrogen 34 mg/dL (9-20); Calcium 8.6 mg/dL (8.4-10.2); Chloride 94 mmol/L (98-107); Estimated Glomerular Filt Rate > 60.0 mL/min (>60); Globulin 3.7 g/dL (1.7-4.1); Glucose 111 mg/dL (80-110); Lipase 53 U/L (23-300); NT-proBNP (BNP-Adult 18+) 6240 pg/mL (<125); Potassium 4.7 mmol/L (3.4-5.1); Sodium 140 mmol/L (137-145); Total Protein 7.7 g/dL (6.3-8.2); Troponin I 0.016 ng/mL (0.01-0.034)
[2021-03-27 10:51] LABS: Acetaminophen < 10 ug/mL (10-30); Ethanol (ETOH) < 10 mg/dL; Salicylate < 1.0 mg/dL (<20)
[2021-03-27 10:56] LABS: HEMOLYSIS 18 (0-50)
[2021-03-27 10:58] LABS: Carbon Dioxide 40 mmol/L (22-32)
[2021-03-27] MEDS: SODIUM CHLORIDE 0.9% 1,000 ML 125 ML IV ×2 (11:00→16:02)
[2021-03-27 11:06] LABS: Procalcitonin 0.09 ng/mL (<0.5)
[2021-03-27 11:09] LABS: Thyroid Stimulating Hormone 3.32 uIU/mL (0.47-4.68)
[2021-03-27 11:16] LABS: Anisocytosis 2+; Neutrophils Absolute Manual 10795 /uL (3000-5900); Nucleated Red Blood Cells 4 #/Diff; Poikilocytosis 1+; Polychromasia 1+; Target Cells 2+; Total Cells Counted 100
[2021-03-27 12:09] LABS: Appearance Urine UA CLEAR; Bilirubin Urine UA NEGATIVE (NEGATIVE); Color Urine UA YELLOW; Glucose Urine UA TRACE g/dL (Negative); Ketones Urine UA NEGATIVE (NEGATIVE); Leukocyte Esterase Urine UA NEGATIVE (NEGATIVE); Nitrite Urine UA NEGATIVE (Negative); Occult Blood Urine UA NEGATIVE (Negative); Protein Urine UA 2+ (Negative); Specific Gravity Urine UA >=1.030 (1.000-1.035); Urobilinogen Urine UA 0.2 E.U./dL (0.2)
[2021-03-27 12:11] LABS: UR Morphine/Opiate cutoff 300 Negative (Negative); Ur Creatinine Normal (Normal); Ur Specific Gravity Normal (Normal); Urine Amphetamines Negative (Negative); Urine Barbiturates Negative (Negative); Urine Benzodiazepines Negative (Negative); Urine Cocaine Negative (Negative); Urine MDMA Negative (Negative); Urine Methadone Negative (Negative); Urine Methamphetamines Negative (Negative); Urine Oxycodone Negative (Negative); Urine Phencyclidine Negative (Negative); Urine Tetrahydrocannabinol Positive (Negative); Urine Tricyclic Antidepressant Negative (Negative); Urine pH Normal (Normal)
[2021-03-27 12:15] LABS: RBC Urine None Seen (0-5/HPF); Transitional Epi Cells Urine 1-5/HPF (0-5/HPF); WBC Urine 1-5/HPF (0-5/HPF)
[2021-03-27 12:16] LABS: Amorphous Sediment Urine 2+; Bacteria Urine Moderate (10-30); Culture Indicated Urine Specimen Cultured
[2021-03-27] MEDS: FUROSEMIDE 40 MG/4 ML VIAL IV (12:21)
--- NOTE | 2021-03-27 12:37 | PM.HP.1 ---
History of Present Illness History of Present Illness Date Patient Seen: 03/27/21 Time Patient Seen: 12:30 Chief complaint: SOB Narrative: 70-year-old male former smoker with a history of severe COPD oxygen dependent hypertension hypothyroidism prostate cancer gastric ulcer and osteoarthritis presents to the emergency department via ambulance with confusion and low oxygenation status. Patient's brother is at the bedside and provides the history. Patient brother came up to visit him about a week ago as he says the patient called him is that he was having increasing difficulty with breathing and more short of breath. He has a diagnosis of COPD and recently had evaluation by his primary care physician which showed severe COPD. Pay recently range for him to have home oxygen he has been having 2 L at home. At times he still been quite weak and short of breath. His brother states that to even with 2 L of oxygen at times his oxygen level has been in the mid to lower 80s. Other than feeling weak and tired. He has had no recent problems with chest pain dizziness lightheadedness. Has a history of smoking. The brother said yesterday he turned his oxygen up to 5 L for few minutes and patient then went to sleep. And then he turned it back down to 2 L of oxygen. Patient was then again evaluated by his brother this morning he is here visiting and he was found to be confused hypoxic somewhat unresponsive. Patient was on the ground. He was hypoxic in the low 80s. He was given oxygen he was then able to stand up on his own get into the gurney however his mental status was fluctuating. Patient is unable to provide any history at the time of evaluation by EMS in the emergency department. History is obtained mostly from the son. Shortly after arrival to the emergency department after emergency room evaluation patient was intubated. Patient then had a workup in the emergency department his workup included EKG which shows low voltage criteria no acute ST or T-wave changes CT scan of his chest which shows no acute pulmonary emboli no pleural effusion no pneumothorax some atelectasis CT scan of his head no acute bleeds and laboratory data showing COVID test negative toxicology screen positive for marijuana urinalysis no signs of significant infection ethyl alcohol less than 10 acetaminophen and salicylates negative TSH 3.32 ammonia 42 BNP 6 240 troponin negative CK 50 lactate 1.1 INR 1.1 lipase 53 procalcitonin 0.09 normal liver enzymes CO2 40 BUN and creatinine 34 and 1 await white blood cell count 12.7 hemoglobin hematocrit 11.4 and 37.8. His vitals on arrival to the emergency room showed a pulse rate of 68 respiratory rate of 25 blood pressure 100/58 pulse oximetry of 80% Patient History Medical History Acquired insufficiency of aortic valve (10/08/15) Asthma Cellulitis (~02/2020) Chronic obstructive pulmonary disease (01/19/11) Cobalamin deficiency CTS (carpal tunnel syndrome) Duodenal ulcer Eczema Elevated d-dimer (~02/2020) Essential hypertension Former smoker Gastric ulcer History of malignant neoplasm of prostate Hypothyroidism (08/21/14) Idiopathic peripheral neuropathy Leukocytosis (01/19/11) Low back pain of over 3 months duration (11/15/16) Obesity (01/19/11) Olecranon bursitis of left elbow Osteoarthritis Prostate cancer (2010) Thrombocytosis (01/19/11) Unilateral primary osteoarthritis, right knee Weakness of right lower extremity (11/15/16) Surgical History History of arthroplasty of right knee (05/24/20) History of spinal fusion (2012) History of splenectomy (1975) Status post cataract extraction of both eyes with insertion of intraocular lens Status post wrist surgery (2011) Family & Social History Family History Brother Thyroid cancer Mother Breast cancer Father No problems noted. Social History: household members none lives independently Yes caregiver/support person No Safety & Behavioral: Feels Safe in Current Unwilling to Answer Environment Been Physically Hurt or Unwilling to Answer Threatened By a Person Tobacco & Substance use: Tobacco type cigarettes Smoking Status Former smoker alcohol intake former alcohol intake frequency holiday/special occasion Substance Use Type does not use Meds Home Medications and Allergies Home Medications Medication Instructions Recorded Confirmed Type cyanocobalamin (vitamin B-12) 1,000 mcg PO QDAY #0 04/04/17 03/27/21 History 1,000 mcg tablet,extended release diphenhydramine HCl 25 mg capsule 25 mg PO Q4-6H PRN 09/14/17 03/27/21 History (Allergy (diphenhydramine)) ciclesonide 160 mcg/actuation 2 puff INHALATION BID #6.1 gram 01/14/20 03/27/21 Rx aerosol inhaler (Alvesco) fluticasone propionate 50 2 spray NASAL BEDTIME PRN 02/19/20 03/27/21 History mcg/actuation nasal spray,suspension ipratropium 20 mcg-albuterol 100 1 puff INHALATION BID 02/19/20 03/27/21 History mcg/actuation mist for inhalation (Combivent Respimat) duloxetine 30 mg capsule,delayed 30 mg PO DAILY #90 cap 05/31/20 03/27/21 Rx release omeprazole 40 mg capsule,delayed 40 mg PO BID #60 cap 05/31/20 03/27/21 Rx release potassium chloride 20 mEq 20 meq PO DAILY #30 tab 05/31/20 03/27/21 Rx tablet,extended release(part/cryst) (Klor-Con M) levothyroxine 150 mcg tablet See Rx Instructions .ROUTE 06/07/20 03/27/21 Rx .COMPLEX #90 tab chlorthalidone 25 mg tablet 50 mg PO QDAY #180 tab 06/16/20 03/27/21 Rx acetaminophen 325 mg tablet 650 mg PO TID #60 tab 08/31/20 03/27/21 Rx aspirin 81 mg tablet,delayed 81 mg PO BID #60 tab 08/31/20 03/27/21 Rx release ibuprofen 400 mg tablet 400 mg PO Q4HR #60 tab 08/31/20 03/27/21 Rx tamsulosin 0.4 mg capsule (Flomax) 0.4 mg PO DAILY #5 cap 08/31/20 03/27/21 Rx albuterol sulfate 90 mcg/actuation 2 puff INHALATION Q4HP PRN #2 03/07/21 03/27/21 Rx aerosol inhaler (Proventil HFA) device triamcinolone acetonide 0.1 % 1 applic TOPICAL TID #80 g 03/21/21 03/27/21 Rx topical cream Allergies Allergy/AdvReac Type Severity Reaction Status Date / Time crab [CRAB] Allergy Severe Throat Verified 03/21/21 10:47 swelling animal dander [ANIMAL DANDER] Allergy Mild Sinus Verified 03/21/21 10:47 congestion, itching, eczema pollen extracts Allergy Unknown Sinus Verified 03/21/21 10:47 [POLLEN EXTRACTS] congestion, itching, eczema Exam Vital Signs (past 8 hours): - 03/27/21 09:33 03/27/21 09:37 03/27/21 09:40 Temperature 96.5 F L Pulse Rate 110 H 104 H 109 H Respiratory Rate 12 29 H 17 Blood Pressure 132/80 Pulse Oximetry 96 94 96 03/27/21 09:45 03/27/21 09:48 03/27/21 09:50 Temperature 96.1 F L Pulse Rate 93 H 96 H 97 H Respiratory Rate 14 21 30 H Blood Pressure 184/104 H 200/124 H Pulse Oximetry 100 100 98 03/27/21 09:55 03/27/21 10:00 03/27/21 10:05 Temperature Pulse Rate 93 H 93 H 89 Respiratory Rate 20 25 H 20 Blood Pressure 122/86 122/68 Pulse Oximetry 96 97 95 03/27/21 10:09 03/27/21 10:10 03/27/21 10:15 Temperature Pulse Rate 85 86 92 H Respiratory Rate 20 18 20 Blood Pressure 88/55 L 82/52 L 110/57 L Pulse Oximetry 96 94 98 03/27/21 10:20 03/27/21 10:25 03/27/21 10:30 Temperature Pulse Rate 90 80 85 Respiratory Rate 21 25 H 25 H Blood Pressure 113/62 111/62 Pulse Oximetry 97 98 98 03/27/21 10:31 03/27/21 10:35 03/27/21 10:40 Temperature Pulse Rate 75 67 67 Respiratory Rate 25 H 25 H 25 H Blood Pressure 116/56 L 112/59 L 108/58 L Pulse Oximetry 98 98 99 03/27/21 10:45 03/27/21 10:50 03/27/21 10:55 Temperature Pulse Rate 65 65 71 Respiratory Rate 25 H 25 H 23 Blood Pressure 107/58 L 103/59 L 97/54 L Pulse Oximetry 99 91 98 03/27/21 11:00 03/27/21 11:04 03/27/21 11:05 Temperature Pulse Rate 64 65 65 Respiratory Rate 25 H 25 H 25 H Blood Pressure 100/58 L Pulse Oximetry 99 99 99 03/27/21 11:06 03/27/21 11:10 03/27/21 11:15 Temperature Pulse Rate 68 65 62 Respiratory Rate 25 H 25 H 25 H Blood Pressure 100/58 L Pulse Oximetry 99 99 100 03/27/21 11:20 12/19/21 11:24 03/27/21 11:25 Temperature Pulse Rate 63 61 66 Respiratory Rate 25 H 25 H 21 Blood Pressure 80/50 L Pulse Oximetry 100 100 100 03/27/21 11:30 03/27/21 11:35 03/27/21 11:40 Temperature Pulse Rate 68 61 61 Respiratory Rate 25 H 25 H 25 H Blood Pressure 98/67 103/65 Pulse Oximetry 100 100 100 03/27/21 11:45 03/27/21 11:46 03/27/21 11:47 Temperature Pulse Rate 67 65 Respiratory Rate 25 H 20 Blood Pressure 106/57 L 107/63 Pulse Oximetry 97 03/27/21 11:50 03/27/21 12:00 03/27/21 12:01 Temperature 97.3 F L Pulse Rate 61 63 Respiratory Rate 25 H 38 H Blood Pressure 102/70 97/57 L Pulse Oximetry 96 99 03/27/21 12:05 03/27/21 12:10 03/27/21 12:16 Temperature 97.9 F 98.2 F Pulse Rate 58 L 59 L Respiratory Rate 25 H 25 H Blood Pressure 102/59 L 98/56 L 101/57 L Pulse Oximetry 98 93 03/27/21 12:20 03/27/21 12:25 03/27/21 12:30 Temperature 98.8 F 98.8 F Pulse Rate 62 63 Respiratory Rate 25 H 26 H Blood Pressure 102/55 L 92/56 L 89/54 L Pulse Oximetry 91 94 Oxygen Delivery Method Mechanical Ventilation Narrative Exam Narrative: Gen.: Patient is sedated and mechanically ventilated moves to voice command. HEENT: Pupils are reactive to light. Neck is supple. Patient has an ET tube and nasogastric tube in place Cardio: S1-S2 regular rate and rhythm no appreciable murmurs here heard Respiratory: Mechanical ventilated breath sounds. Good aeration bilaterally. Abdomen: Soft nontender no abdominal distension Extremities: Warm dry perfused Neurologic: Patient is sedated Objective ECG Impression: No acute ST or T-wave changes. Decreased amplitude Imaging CT scan - chest: Radiologist's impression: INDINGS:? Image quality:? Excellent.? ? Pulmonary arteries:? Pulmonary arteries are normal in size, and demonstrate no intraluminal filling defects to suggest central pulmonary embolism.? ? Lungs and pleura:? Endotracheal tube is in good position above the bella.? There is bibasilar atelectasis.? No pleural effusions or pneumothorax.? Central and peripheral airways are patent.? ? Mediastinum:? Heart size is enlarged, without pericardial effusion.? No mediastinal or hilar adenopathy.? Thoracic aorta is normal in caliber and enhancement.? Esophagus is normal in caliber, without hiatal hernia.? Gastric tube is well positioned with the tip in the stomach. ? Bones and chest wall:? No suspicious bony lesions.? Ribs and thoracic spine appear intact throughout.? Thyroid gland is normal.? No axillary or supraclavicular adenopathy.? Degenerative disc disease at T11-12.? ACDF in the lower thoracic spine. ? Abdomen:? Visualized upper abdominal solid organs appear normal in the early arterial phase of enhancement.? ? IMPRESSION:? 1. No pulmonary embolism. 2. Bibasilar atelectasis. 3. Endotracheal tube and gastric tube appear well positioned.? CT scan - head: Radiologist's impression: FINDINGS:? Image quality:? Excellent.? ? CSF spaces:? Basal cisterns are patent.? No extra-axial fluid collections.? Ventricles are normal in size and shape.? ? Brain:? No midline shift.? No intracranial masses or hemorrhage.? Guerrero-white matter interface is normal.? ? Skull and face:? Calvarium and visualized facial bones are intact, without suspicious lesions.? ? Sinuses:? Visualized sinuses and mastoids are clear.? ? IMPRESSION:? No acute intracranial abnormality. Labs Result Diagrams: 03/27/21 09:51 03/27/21 09:51 Labs: Laboratory Results - last 24 hr 03/27/21 03/27/21 03/27/21 09:37 09:51 09:51 WBC 12.7 H RBC 4.46 L Hgb 11.4 L Hct 37.8 L MCV 84.8 MCH 25.6 L MCHC 30.2 RDW 15.5 H Plt Count 470 H Neut % (Auto) Not Reportable Lymph % (Auto) Not Reportable [place] % (Auto) Not Reportable Eos % (Auto) Not Reportable Baso % (Auto) Not Reportable Lymph # (Auto) Not Reportable [place] # (Auto) Not Reportable Baso # (Auto) Not Reportable Total Counted 100 Seg Neutrophils % 82.0 H Band Neutrophils % 3.0 Lymphocytes % (Manual) 9.0 L Monocytes % (Manual) 6.0 Neutrophils # (Manual) 43349 H Nucleated RBCs 4 H RBC Morphology Not Reportable Polychromasia 1+ H Poikilocytosis 1+ H Anisocytosis 2+ H Target Cells 2+ H PT INR APTT Sodium 140 Potassium 4.7 Chloride 94 L Carbon Dioxide 40 H* BUN 34 H Creatinine 1.08 Estimated GFR > 60.0 BUN/Creatinine Ratio 31.5 H Glucose 111 H Lactate Calcium 8.6 Total Bilirubin 0.5 AST 31 ALT 34 Alkaline Phosphatase 103 Ammonia Total Creatine Kinase CK-MB (CK-2) CK-MB (CK-2) Rel Index Troponin I NT-Pro-B Natriuret Pep Total Protein 7.7 Albumin 4.0 Globulin 3.7 Albumin/Globulin Ratio 1.1 Lipase 53 Procalcitonin 0.09 TSH Urine Color Urine Appearance Urine pH Ur Specific [place] Urine Protein Urine Glucose (UA) Urine Ketones Urine Occult Blood Urine Nitrate Urine Bilirubin Urine Urobilinogen Ur Leukocyte Esterase Urine RBC Urine WBC Ur Transition Epith Cell Amorphous Sediment Urine Bacteria Ur Culture Indicated? Salicylates U Opiates 300ng/mL cut Ur Oxycodone Screen Urine Methadone Screen Acetaminophen Ur Barbiturates Screen U Tricyclic Antidepress Ur Phencyclidine Scrn Ur Amphetamines Screen U Methamphetamines Scrn Ur MDMA Scrn (Ecstasy) U Benzodiazepines Scrn Urine Cocaine Screen U Marijuana (THC) Screen Ethyl Alcohol SARS-CoV-2 (PCR) Negative 03/27/21 03/27/21 03/27/21 09:51 09:51 09:51 WBC RBC Hgb Hct MCV MCH MCHC RDW Plt Count Neut % (Auto) Lymph % (Auto) [place] % (Auto) Eos % (Auto) Baso % (Auto) Lymph # (Auto) [place] # (Auto) Baso # (Auto) Total Counted Seg Neutrophils % Band Neutrophils % Lymphocytes % (Manual) Monocytes % (Manual) Neutrophils # (Manual) Nucleated RBCs RBC Morphology Polychromasia Poikilocytosis Anisocytosis Target Cells PT 12.5 INR 1.1 APTT 33 Sodium Potassium Chloride Carbon Dioxide BUN Creatinine Estimated GFR BUN/Creatinine Ratio Glucose Lactate 1.1 Calcium Total Bilirubin AST ALT Alkaline Phosphatase Ammonia Total Creatine Kinase 50 L CK-MB (CK-2) TNP CK-MB (CK-2) Rel Index TNP Troponin I 0.016 NT-Pro-B Natriuret Pep 6240 H Total Protein Albumin Globulin Albumin/Globulin Ratio Lipase Procalcitonin TSH Urine Color Urine Appearance Urine pH Ur Specific [place] Urine Protein Urine Glucose (UA) Urine Ketones Urine Occult Blood Urine Nitrate Urine Bilirubin Urine Urobilinogen Ur Leukocyte Esterase Urine RBC Urine WBC Ur Transition Epith Cell Amorphous Sediment Urine Bacteria Ur Culture Indicated? Salicylates U Opiates 300ng/mL cut Ur Oxycodone Screen Urine Methadone Screen Acetaminophen Ur Barbiturates Screen U Tricyclic Antidepress Ur Phencyclidine Scrn Ur Amphetamines Screen U Methamphetamines Scrn Ur MDMA Scrn (Ecstasy) U Benzodiazepines Scrn Urine Cocaine Screen U Marijuana (THC) Screen Ethyl Alcohol SARS-CoV-2 (PCR) 03/27/21 03/27/21 03/27/21 09:51 09:51 09:51 WBC RBC Hgb Hct MCV MCH MCHC RDW Plt Count Neut % (Auto) Lymph % (Auto) [place] % (Auto) Eos % (Auto) Baso % (Auto) Lymph # (Auto) [place] # (Auto) Baso # (Auto) Total Counted Seg Neutrophils % Band Neutrophils % Lymphocytes % (Manual) Monocytes % (Manual) Neutrophils # (Manual) Nucleated RBCs RBC Morphology Polychromasia Poikilocytosis Anisocytosis Target Cells PT INR APTT Sodium Potassium Chloride Carbon Dioxide BUN Creatinine Estimated GFR BUN/Creatinine Ratio Glucose Lactate Calcium Total Bilirubin AST ALT Alkaline Phosphatase Ammonia 42 H Total Creatine Kinase CK-MB (CK-2) CK-MB (CK-2) Rel Index Troponin I NT-Pro-B Natriuret Pep Total Protein Albumin Globulin Albumin/Globulin Ratio Lipase Procalcitonin TSH 3.32 Urine Color Urine Appearance Urine pH Ur Specific [place] Urine Protein Urine Glucose (UA) Urine Ketones Urine Occult Blood Urine Nitrate Urine Bilirubin Urine Urobilinogen Ur Leukocyte Esterase Urine RBC Urine WBC Ur Transition Epith Cell Amorphous Sediment Urine Bacteria Ur Culture Indicated? Salicylates < 1.0 U Opiates 300ng/mL cut Ur Oxycodone Screen Urine Methadone Screen Acetaminophen < 10 L Ur Barbiturates Screen U Tricyclic Antidepress Ur Phencyclidine Scrn Ur Amphetamines Screen U Methamphetamines Scrn Ur MDMA Scrn (Ecstasy) U Benzodiazepines Scrn Urine Cocaine Screen U Marijuana (THC) Screen Ethyl Alcohol < 10 SARS-CoV-2 (PCR) 03/27/21 03/27/21 12:05 12:05 WBC RBC Hgb Hct MCV MCH MCHC RDW Plt Count Neut % (Auto) Lymph % (Auto) [place] % (Auto) Eos % (Auto) Baso % (Auto) Lymph # (Auto) [place] # (Auto) Baso # (Auto) Total Counted Seg Neutrophils % Band Neutrophils % Lymphocytes % (Manual) Monocytes % (Manual) Neutrophils # (Manual) Nucleated RBCs RBC Morphology Polychromasia Poikilocytosis Anisocytosis Target Cells PT INR APTT Sodium Potassium Chloride Carbon Dioxide BUN Creatinine Estimated GFR BUN/Creatinine Ratio Glucose Lactate Calcium Total Bilirubin AST ALT Alkaline Phosphatase Ammonia Total Creatine Kinase CK-MB (CK-2) CK-MB (CK-2) Rel Index Troponin I NT-Pro-B Natriuret Pep Total Protein Albumin Globulin Albumin/Globulin Ratio Lipase Procalcitonin TSH Urine Color Yellow Urine Appearance Clear Urine pH 5.0 Ur Specific [place] >=1.030 H Urine Protein 2+ H Urine Glucose (UA) Trace H Urine Ketones Negative Urine Occult Blood Negative Urine Nitrate Negative Urine Bilirubin Negative Urine Urobilinogen 0.2 Ur Leukocyte Esterase Negative Urine RBC None seen Urine WBC 1-5/hpf Ur Transition Epith Cell 1-5/hpf Amorphous Sediment 2+ Urine Bacteria Moderate (10-30) H Ur Culture Indicated? Specimen cultured Salicylates U Opiates 300ng/mL cut Negative Ur Oxycodone Screen Negative Urine Methadone Screen Negative Acetaminophen Ur Barbiturates Screen Negative U Tricyclic Antidepress Negative Ur Phencyclidine Scrn Negative Ur Amphetamines Screen Negative U Methamphetamines Scrn Negative Ur MDMA Scrn (Ecstasy) Negative U Benzodiazepines Scrn Negative Urine Cocaine Screen Negative U Marijuana (THC) Screen Positive H Ethyl Alcohol SARS-CoV-2 (PCR) Assessment & Plan Assessment and plan (1) Acute hypercapnic respiratory failure: Status: Acute Plan Acute respiratory failure due to underlying COPD. Patient is made to the ICU with acute respiratory failure due to COPD exacerbation. Patient was intubated in the emergency room and currently intubated and mechanically ventilated. Tele [employer] clerk was consulted and Dr. Ramos updated on current care. Patient has this history of COPD oxygen dependent with recent worsening. Patient will continue with mechanical ventilation and sedation per protocol with propofol and fentanyl. Patient will have an OG tube placed. Soft restraints for safety Rodriguez catheter and vital signs per protocol. Ventilator management per tele [employer] clerk recommendations. Patient blood pressure has mildly low in the emergency department. He is currently not on pressors at this point and will continue to monitor. COVID negative CT of chest shows no PE. CPK within normal limits. COPD with acute exacerbation patient will be started on appropriate therapy for COPD exacerbation. Ipratropium and albuterol nebulizers q.4 hours. Patient will be started on respiratory floraquinolone Levaquin 500 mg IV daily. He has not recently been on antibiotics or hospitalized. He was given steroids in the emergency department will continue with IV Solu-Medrol 60 mg daily. His white blood cell on admission is normal his procalcitonin and lactic acid are normal. Hypotension. Patient mildly hypotensive due to sedation and pain management. Has a history of hypertension. Will go ahead and hold his home antihypertensive medications. Gastroesophageal reflux patient with a history of gastric ulcers. Will go ahead and place him on Protonix 40 mg IV. He is on omeprazole at home. Hypothyroidism. Patient on thyroid replacement TSH is normal at this time. Will hold off on his home thyroid medication at this point. Depression. Patient on duloxetine 30 mg capsules daily. Will go ahead and hold this medication at this point. Prostate cancer with a history of BPH patient on Flomax. Will hold that patient has a Rodriguez catheter in place will resume this when he is tolerating oral medication. Code status patient is a full code. Prophylaxis DVT with Lovenox Time Spent With Patient Time with patient: 70 minutes or more, with 50% spent counseling/coordinating Critical Care time: I spent a total of 120 minutes of critical care time on this patient's care today; this time is exclusive of procedural time.
[2021-03-27] MEDS: ALBUTEROL/IPRATROPIUM 3 ML AMPUL INH ×5 (12:45→23:01)
[2021-03-27] MEDS: methylPREDNISolone 125 MG/2 ML VIAL IV (12:53)
[2021-03-27 13:04] LABS: Adenovirus Not Detected (Not Detect); Coronavirus 229E Not Detected (Not Detect); Coronavirus HKU1 Not Detected (Not Detect); Coronavirus NL 63 Not Detected (Not Detect); Coronavirus OC43 Not Detected (Not Detect); Human Metapneumovirus Not Detected (Not Detect); Human Rhinovirus/Enterovirus Not Detected (Not Detect); Influenza A Not Detected (Not Detect); Influenza B Not Detected (Not Detect); Parainfluenza Virus 1 Not Detected (Not Detect); Parainfluenza Virus 2 Not Detected (Not Detect); Parainfluenza Virus 3 Not Detected (Not Detect); SARS- CoV-2 Not Detected (Not Detecte)
[2021-03-27 13:05] LABS: B. parapertussis Not Detected (Not Detecte); Bordetella pertussis Not Detected (Not Detecte); Chlamydophila pneumoniae Not Detected (Not Detect); Mycoplasma pneumoniae Not Detected (Not Detect); Parainfluenza Virus 4 Not Detected (Not Detect); Respiratory Syncytial Virus Not Detected (Not Detect)
--- NOTE | 2021-03-27 13:07 | PC.NURSE ---
Pt lives at home alone with brother visiting. Per brother, Blas, pt has been increasingly more weak, more SOB, and having frequent falls. Pt was set up to have home O2 delivered yesterday and was placed on 2L ordered by Dr Vargas. Brother, who is a retired family practice physician increased him to 5L and called 911 when pt getting increasingly more obtunded. On arrival, pt somulent, minimally responsive to noxious stim, sats low 80's, HR 104-110, cool to touch. Pt moved to [facility] for intubation. RT in room. Dr Lucero at [facility]. Pt placed on NRB at 15L as well as NC at 15L for preoxygenation, induction meds given per JUN for RSI and pt intubated with 7.5 ETT, 25 @ teeth, +color change, +ETCO2, breath sounds diminished throughout with L diminished > R. Vent settings 450/25RR/80%/5, Pt having labile SPO2 readings and needs to be frequently suctioned. initial ABG pCO@ 114. 18F OG placed with +gastric contents, thick tenacious and yellow in color. ETT and OG confirmed placement with XR and ETT advanced 1cm to 26 @ teeth. Pt sedated on propofol per MAR titration with intermittent IVP of dilaudid 1mg for pain control. HR 64 NSR after intubation. @ 1210, pt had a brief run of VTACH, resolved without issue. 16F temp drake placed with 400mL initial yellow urine output. temp 98.4 core, skin appears intact. pt has B/L 18G PIV's. Repeat ABG with pCO2 89. Appears comfortable at this time and tolerating vent well. Report given to [employer] TEACHERMARIAM Aguilar and Dr Lacy in consulting with pt and family.
[2021-03-27 13:36] LABS: Fractionated Inspired Oxygen 80; HCO3 ABG 43 mmol/L (22-26); Oxygen Saturation ABG 34 % (95-100); PCO2 ABG 89.7 mmHg (35-45); PO2 ABG 25 mmHg (80-100); TCO2 ABG 46 mmol/L (21-31)
[2021-03-27 13:59] LABS: HCO3 ABG 44 mmol/L (22-26); PCO2 ABG 114.6 mmHg (35-45); PO2 ABG 31 mmHg (80-100); TCO2 ABG 47 mmol/L (21-31); pH ABG 7.19 (7.35-7.45)
[2021-03-27 14:00] LABS: Oxygen Saturation ABG 41 % (95-100)
--- NOTE | 2021-03-27 15:02 | P.TELICUCN_ITS ---
History of Present Illness Consult details Date Patient Seen: 03/27/21 Chief complaint: SOB Reason for consult: Vent management :: This patient was seen via real time interactive two-way audiovisual telecommunication. seen in ED for AMS and sob intuvated for resp failure and poor mentation [facility] Medical History Acquired insufficiency of aortic valve (10/08/15) Asthma Cellulitis (~02/2020) Chronic obstructive pulmonary disease (01/19/11) Cobalamin deficiency CTS (carpal tunnel syndrome) Duodenal ulcer Eczema Elevated d-dimer (~02/2020) Essential hypertension Former smoker Gastric ulcer History of malignant neoplasm of prostate Hypothyroidism (08/21/14) Idiopathic peripheral neuropathy Leukocytosis (01/19/11) Low back pain of over 3 months duration (11/15/16) Obesity (01/19/11) Olecranon bursitis of left elbow Osteoarthritis Prostate cancer (2010) Thrombocytosis (01/19/11) Unilateral primary osteoarthritis, right knee Weakness of right lower extremity (11/15/16) Surgical History History of arthroplasty of right knee (05/24/20) History of spinal fusion (2012) History of splenectomy (1975) Status post cataract extraction of both eyes with insertion of intraocular lens Status post wrist surgery (2011) Family History Brother Thyroid cancer Mother Breast cancer Father No problems noted. 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 [employer]: [employer] travel history: recent () leisure activities: art (Photography), volunteer work and other (Traveling) Smoking Status: Former smoker Tobacco: How many years used: 15 Smokeless tobacco user: other (Cigarettes) quit status: quit date established (1989) second hand exposure: No alcohol intake: former substance use type: does not use Current Medications Current Medications Medications: Home Medications cyanocobalamin (vitamin B-12) 1,000 mcg tablet,extended release 1,000 mcg PO QDAY #0 04/04/17 [History Confirmed 03/27/21] diphenhydramine HCl 25 mg capsule (Allergy (diphenhydramine)) 25 mg PO Q4-6H PRN 09/14/17 [History Confirmed 03/27/21] ciclesonide 160 mcg/actuation aerosol inhaler (Alvesco) 2 puff INHALATION BID #6.1 gram 01/14/20 [Rx Confirmed 03/27/21] fluticasone propionate 50 mcg/actuation nasal spray,suspension 2 spray NASAL BEDTIME PRN 02/19/20 [History Confirmed 03/27/21] ipratropium 20 mcg-albuterol 100 mcg/actuation mist for inhalation (Combivent Respimat) 1 puff INHALATION BID 02/19/20 [History Confirmed 03/27/21] duloxetine 30 mg capsule,delayed release 30 mg PO DAILY #90 cap 05/31/20 [Rx Confirmed 03/27/21] omeprazole 40 mg capsule,delayed release 40 mg PO BID #60 cap 05/31/20 [Rx Confirmed 03/27/21] potassium chloride 20 mEq tablet,extended release(part/cryst) (Klor-Con M) 20 meq PO DAILY #30 tab 05/31/20 [Rx Confirmed 03/27/21] levothyroxine 150 mcg tablet See Rx Instructions .ROUTE .COMPLEX #90 tab 06/07/20 [Rx Confirmed 03/27/21] chlorthalidone 25 mg tablet 50 mg PO QDAY #180 tab 06/16/20 [Rx Confirmed 03/27/21] acetaminophen 325 mg tablet 650 mg PO TID #60 tab 08/31/20 [Rx Confirmed 03/27/21] aspirin 81 mg tablet,delayed release 81 mg PO BID #60 tab 08/31/20 [Rx Confirmed 03/27/21] ibuprofen 400 mg tablet 400 mg PO Q4HR #60 tab 08/31/20 [Rx Confirmed 03/27/21] tamsulosin 0.4 mg capsule (Flomax) 0.4 mg PO DAILY #5 cap 08/31/20 [Rx Confirmed 03/27/21] albuterol sulfate 90 mcg/actuation aerosol inhaler (Proventil HFA) 2 puff INHALA TION Q4HP PRN #2 device 03/07/21 [Rx Confirmed 03/27/21] triamcinolone acetonide 0.1 % topical cream 1 applic TOPICAL TID #80 g 03/21/21 [Rx Confirmed 03/27/21] Exam Vital Signs (past 8 hours): - 03/27/21 09:33 03/27/21 09:37 03/27/21 09:40 Temperature 96.5 F L Pulse Rate 110 H 104 H 109 H Respiratory Rate 12 29 H 17 Blood Pressure 132/80 Pulse Oximetry 96 94 96 03/27/21 09:45 03/27/21 09:48 03/27/21 09:50 Temperature 96.1 F L Pulse Rate 93 H 96 H 97 H Respiratory Rate 14 21 30 H Blood Pressure 184/104 H 200/124 H Pulse Oximetry 100 100 98 03/27/21 09:55 03/27/21 10:00 03/27/21 10:05 Temperature Pulse Rate 93 H 93 H 89 Respiratory Rate 20 25 H 20 Blood Pressure 122/86 122/68 Pulse Oximetry 96 97 95 03/27/21 10:09 03/27/21 10:10 03/27/21 10:15 Temperature Pulse Rate 85 86 92 H Respiratory Rate 20 18 20 Blood Pressure 88/55 L 82/52 L 110/57 L Pulse Oximetry 96 94 98 03/27/21 10:20 03/27/21 10:25 03/27/21 10:30 Temperature Pulse Rate 90 80 85 Respiratory Rate 21 25 H 25 H Blood Pressure 113/62 111/62 Pulse Oximetry 97 98 98 03/27/21 10:31 03/27/21 10:35 03/27/21 10:40 Temperature Pulse Rate 75 67 67 Respiratory Rate 25 H 25 H 25 H Blood Pressure 116/56 L 112/59 L 108/58 L Pulse Oximetry 98 98 99 03/27/21 10:45 03/27/21 10:50 03/27/21 10:55 Temperature Pulse Rate 65 65 71 Respiratory Rate 25 H 25 H 23 Blood Pressure 107/58 L 103/59 L 97/54 L Pulse Oximetry 99 91 98 03/27/21 11:00 03/27/21 11:04 03/27/21 11:05 Temperature Pulse Rate 64 65 65 Respiratory Rate 25 H 25 H 25 H Blood Pressure 100/58 L Pulse Oximetry 99 99 99 03/27/21 11:06 03/27/21 11:10 03/27/21 11:15 Temperature Pulse Rate 68 65 62 Respiratory Rate 25 H 25 H 25 H Blood Pressure 100/58 L Pulse Oximetry 99 99 100 03/27/21 11:20 03/27/21 11:24 03/27/21 11:25 Temperature Pulse Rate 63 61 66 Respiratory Rate 25 H 25 H 21 Blood Pressure 80/50 L Pulse Oximetry 100 100 100 03/27/21 11:30 03/27/21 11:35 03/27/21 11:40 Temperature Pulse Rate 68 61 61 Respiratory Rate 25 H 25 H 25 H Blood Pressure 98/67 103/65 Pulse Oximetry 100 100 100 03/27/21 11:45 03/27/21 11:46 03/27/21 11:47 Temperature Pulse Rate 67 65 Respiratory Rate 25 H 20 Blood Pressure 106/57 L 107/63 Pulse Oximetry 97 03/27/21 11:50 03/27/21 12:00 03/27/21 12:01 Temperature 97.3 F L Pulse Rate 61 63 Respiratory Rate 25 H 38 H Blood Pressure 102/70 97/57 L Pulse Oximetry 96 99 03/27/21 12:05 03/27/21 12:10 03/27/21 12:16 Temperature 97.9 F 98.2 F Pulse Rate 58 L 59 L Respiratory Rate 25 H 25 H Blood Pressure 102/59 L 98/56 L 101/57 L Pulse Oximetry 98 93 03/27/21 12:20 03/27/21 12:25 03/27/21 12:30 Temperature 98.8 F 98.8 F Pulse Rate 62 63 Respiratory Rate 25 H 26 H Blood Pressure 102/55 L 92/56 L 89/54 L Pulse Oximetry 91 94 03/27/21 12:35 03/27/21 12:40 03/27/21 12:45 Temperature 98.8 F 99.0 F 99.0 F Pulse Rate 60 60 61 Respiratory Rate 25 H 25 H 25 H Blood Pressure 97/57 L 101/60 100/63 Pulse Oximetry 96 96 91 03/27/21 12:50 03/27/21 12:55 03/27/21 12:57 Temperature 99.0 F 99.1 F Pulse Rate 63 61 69 Respiratory Rate 25 H 25 H 25 H Blood Pressure 94/58 L 102/62 Pulse Oximetry 94 97 03/27/21 13:00 03/27/21 13:05 03/27/21 13:10 Temperature 99.1 F 99.1 F 99.0 F Pulse Rate 62 68 75 Respiratory Rate 25 H 25 H 25 H Blood Pressure 103/62 106/61 106/62 Pulse Oximetry 99 100 98 03/27/21 13:15 03/27/21 13:20 03/27/21 13:25 Temperature 99.0 F 99.0 F 99.0 F Pulse Rate 75 77 83 Respiratory Rate 26 H 25 H 25 H Blood Pressure 97/60 126/66 123/66 Pulse Oximetry 98 100 100 03/27/21 13:30 Temperature 99.0 F Pulse Rate 87 Respiratory Rate 25 H Blood Pressure 125/67 Pulse Oximetry 100 Oxygen Delivery Method Mechanical Ventilation Objective Labs Result Diagrams: 03/27/21 09:51 03/27/21 09:51 Labs: Laboratory Results - last 24 hr 03/27/21 03/27/21 03/27/21 09:37 09:51 09:51 WBC 12.7 H RBC 4.46 L Hgb 11.4 L Hct 37.8 L MCV 84.8 MCH 25.6 L MCHC 30.2 RDW 15.5 H Plt Count 470 H Neut % (Auto) Not Reportable Lymph % (Auto) Not Reportable [place] % (Auto) Not Reportable Eos % (Auto) Not Reportable Baso % (Auto) Not Reportable Lymph # (Auto) Not Reportable [place] # (Auto) Not Reportable Baso # (Auto) Not Reportable Total Counted 100 Seg Neutrophils % 82.0 H Band Neutrophils % 3.0 Lymphocytes % (Manual) 9.0 L Monocytes % (Manual) 6.0 Neutrophils # (Manual) 99641 H Nucleated RBCs 4 H RBC Morphology Not Reportable Polychromasia 1+ H Poikilocytosis 1+ H Anisocytosis 2+ H Target Cells 2+ H PT INR APTT ABG pH ABG pCO2 ABG pO2 ABG HCO3 ABG Total CO2 ABG O2 Saturation ABG Base Excess FiO2 Sodium 140 Potassium 4.7 Chloride 94 L Carbon Dioxide 40 H* BUN 34 H Creatinine 1.08 Estimated GFR > 60.0 BUN/Creatinine Ratio 31.5 H Glucose 111 H Lactate Calcium 8.6 Total Bilirubin 0.5 AST 31 ALT 34 Alkaline Phosphatase 103 Ammonia Total Creatine Kinase CK-MB (CK-2) CK-MB (CK-2) Rel Index Troponin I NT-Pro-B Natriuret Pep Total Protein 7.7 Albumin 4.0 Globulin 3.7 Albumin/Globulin Ratio 1.1 Lipase 53 Procalcitonin 0.09 TSH Urine Color Urine Appearance Urine pH Ur Specific [place] Urine Protein Urine Glucose (UA) Urine Ketones Urine Occult Blood Urine Nitrate Urine Bilirubin Urine Urobilinogen Ur Leukocyte Esterase Urine RBC Urine WBC Ur Transition Epith Cell Amorphous Sediment Urine Bacteria Ur Culture Indicated? Salicylates U Opiates 300ng/mL cut Ur Oxycodone Screen Urine Methadone Screen Acetaminophen Ur Barbiturates Screen U Tricyclic Antidepress Ur Phencyclidine Scrn Ur Amphetamines Screen U Methamphetamines Scrn Ur MDMA Scrn (Ecstasy) U Benzodiazepines Scrn Urine Cocaine Screen U Marijuana (THC) Screen Ethyl Alcohol Chlamy pneumoniae PCR Adenovirus (PCR) B. pertussis DNA (PCR) B.parapertussis DNA PCR Coronavirus OC43 (PCR) Coronavirus HKU1 (PCR) Coronavirus 229E (PCR) SARS-CoV-2 (PCR) Negative Coronavirus NL63 (PCR) Human Metapneumovir PCR Influenza Type A (PCR) Influenza Type B (PCR) M. pneumoniae (PCR) Parainfluenza 1 (PCR) Parainfluenza 2 (PCR) Parainfluenza 3 (PCR) Parainfluenza 4 (PCR) RSV (PCR) Entero/Rhino (PCR) 03/27/21 03/27/21 03/27/21 09:51 09:51 09:51 WBC RBC Hgb Hct MCV MCH MCHC RDW Plt Count Neut % (Auto) Lymph % (Auto) [place] % (Auto) Eos % (Auto) Baso % (Auto) Lymph # (Auto) [place] # (Auto) Baso # (Auto) Total Counted Seg Neutrophils % Band Neutrophils % Lymphocytes % (Manual) Monocytes % (Manual) Neutrophils # (Manual) Nucleated RBCs RBC Morphology Polychromasia Poikilocytosis Anisocytosis Target Cells PT 12.5 INR 1.1 APTT 33 ABG pH ABG pCO2 ABG pO2 ABG HCO3 ABG Total CO2 ABG O2 Saturation ABG Base Excess FiO2 Sodium Potassium Chloride Carbon Dioxide BUN Creatinine Estimated GFR BUN/Creatinine Ratio Glucose Lactate 1.1 Calcium Total Bilirubin AST ALT Alkaline Phosphatase Ammonia Total Creatine Kinase 50 L CK-MB (CK-2) TNP CK-MB (CK-2) Rel Index TNP Troponin I 0.016 NT-Pro-B Natriuret Pep 6240 H Total Protein Albumin Globulin Albumin/Globulin Ratio Lipase Procalcitonin TSH Urine Color Urine Appearance Urine pH Ur Specific [place] Urine Protein Urine Glucose (UA) Urine Ketones Urine Occult Blood Urine Nitrate Urine Bilirubin Urine Urobilinogen Ur Leukocyte Esterase Urine RBC Urine WBC Ur Transition Epith Cell Amorphous Sediment Urine Bacteria Ur Culture Indicated? Salicylates U Opiates 300ng/mL cut Ur Oxycodone Screen Urine Methadone Screen Acetaminophen Ur Barbiturates Screen U Tricyclic Antidepress Ur Phencyclidine Scrn Ur Amphetamines Screen U Methamphetamines Scrn Ur MDMA Scrn (Ecstasy) U Benzodiazepines Scrn Urine Cocaine Screen U Marijuana (THC) Screen Ethyl Alcohol Chlamy pneumoniae PCR Adenovirus (PCR) B. pertussis DNA (PCR) B.parapertussis DNA PCR Coronavirus OC43 (PCR) Coronavirus HKU1 (PCR) Coronavirus 229E (PCR) SARS-CoV-2 (PCR) Coronavirus NL63 (PCR) Human Metapneumovir PCR Influenza Type A (PCR) Influenza Type B (PCR) M. pneumoniae (PCR) Parainfluenza 1 (PCR) Parainfluenza 2 (PCR) Parainfluenza 3 (PCR) Parainfluenza 4 (PCR) RSV (PCR) Entero/Rhino (PCR) 03/27/21 03/27/21 03/27/21 09:51 09:51 09:51 WBC RBC Hgb Hct MCV MCH MCHC RDW Plt Count Neut % (Auto) Lymph % (Auto) [place] % (Auto) Eos % (Auto) Baso % (Auto) Lymph # (Auto) [place] # (Auto) Baso # (Auto) Total Counted Seg Neutrophils % Band Neutrophils % Lymphocytes % (Manual) Monocytes % (Manual) Neutrophils # (Manual) Nucleated RBCs RBC Morphology Polychromasia Poikilocytosis Anisocytosis Target Cells PT INR APTT ABG pH ABG pCO2 ABG pO2 ABG HCO3 ABG Total CO2 ABG O2 Saturation ABG Base Excess FiO2 Sodium Potassium Chloride Carbon Dioxide BUN Creatinine Estimated GFR BUN/Creatinine Ratio Glucose Lactate Calcium Total Bilirubin AST ALT Alkaline Phosphatase Ammonia 42 H Total Creatine Kinase CK-MB (CK-2) CK-MB (CK-2) Rel Index Troponin I NT-Pro-B Natriuret Pep Total Protein Albumin Globulin Albumin/Globulin Ratio Lipase Procalcitonin TSH 3.32 Urine Color Urine Appearance Urine pH Ur Specific [place] Urine Protein Urine Glucose (UA) Urine Ketones Urine Occult Blood Urine Nitrate Urine Bilirubin Urine Urobilinogen Ur Leukocyte Esterase Urine RBC Urine WBC Ur Transition Epith Cell Amorphous Sediment Urine Bacteria Ur Culture Indicated? Salicylates < 1.0 U Opiates 300ng/mL cut Ur Oxycodone Screen Urine Methadone Screen Acetaminophen < 10 L Ur Barbiturates Screen U Tricyclic Antidepress Ur Phencyclidine Scrn Ur Amphetamines Screen U Methamphetamines Scrn Ur MDMA Scrn (Ecstasy) U Benzodiazepines Scrn Urine Cocaine Screen U Marijuana (THC) Screen Ethyl Alcohol < 10 Chlamy pneumoniae PCR Adenovirus (PCR) B. pertussis DNA (PCR) B.parapertussis DNA PCR Coronavirus OC43 (PCR) Coronavirus HKU1 (PCR) Coronavirus 229E (PCR) SARS-CoV-2 (PCR) Coronavirus NL63 (PCR) Human Metapneumovir PCR Influenza Type A (PCR) Influenza Type B (PCR) M. pneumoniae (PCR) Parainfluenza 1 (PCR) Parainfluenza 2 (PCR) Parainfluenza 3 (PCR) Parainfluenza 4 (PCR) RSV (PCR) Entero/Rhino (PCR) 03/27/21 03/27/21 03/27/21 10:09 10:16 12:05 WBC RBC Hgb Hct MCV MCH MCHC RDW Plt Count Neut % (Auto) Lymph % (Auto) [place] % (Auto) Eos % (Auto) Baso % (Auto) Lymph # (Auto) [place] # (Auto) Baso # (Auto) Total Counted Seg Neutrophils % Band Neutrophils % Lymphocytes % (Manual) Monocytes % (Manual) Neutrophils # (Manual) Nucleated RBCs RBC Morphology Polychromasia Poikilocytosis Anisocytosis Target Cells PT INR APTT ABG pH 7.19 L* ABG pCO2 114.6 H* ABG pO2 31 L* ABG HCO3 44 H ABG Total CO2 47 H ABG O2 Saturation 41 L* ABG Base Excess 16.0 H FiO2 80 Sodium Potassium Chloride Carbon Dioxide BUN Creatinine Estimated GFR BUN/Creatinine Ratio Glucose Lactate Calcium Total Bilirubin AST ALT Alkaline Phosphatase Ammonia Total Creatine Kinase CK-MB (CK-2) CK-MB (CK-2) Rel Index Troponin I NT-Pro-B Natriuret Pep Total Protein Albumin Globulin Albumin/Globulin Ratio Lipase Procalcitonin TSH Urine Color Urine Appearance Urine pH Ur Specific [place] Urine Protein Urine Glucose (UA) Urine Ketones Urine Occult Blood Urine Nitrate Urine Bilirubin Urine Urobilinogen Ur Leukocyte Esterase Urine RBC Urine WBC Ur Transition Epith Cell Amorphous Sediment Urine Bacteria Ur Culture Indicated? Salicylates U Opiates 300ng/mL cut Negative Ur Oxycodone Screen Negative Urine Methadone Screen Negative Acetaminophen Ur Barbiturates Screen Negative U Tricyclic Antidepress Negative Ur Phencyclidine Scrn Negative Ur Amphetamines Screen Negative U Methamphetamines Scrn Negative Ur MDMA Scrn (Ecstasy) Negative U Benzodiazepines Scrn Negative Urine Cocaine Screen Negative U Marijuana (THC) Screen Positive H Ethyl Alcohol Chlamy pneumoniae PCR Not detected Adenovirus (PCR) Not detected B. pertussis DNA (PCR) Not detected B.parapertussis DNA PCR Not detected Coronavirus OC43 (PCR) Not detected Coronavirus HKU1 (PCR) Not detected Coronavirus 229E (PCR) Not detected SARS-CoV-2 (PCR) Not detected Coronavirus NL63 (PCR) Not detected Human Metapneumovir PCR Not detected Influenza Type A (PCR) Not detected Influenza Type B (PCR) Not detected M. pneumoniae (PCR) Not detected Parainfluenza 1 (PCR) Not detected Parainfluenza 2 (PCR) Not detected Parainfluenza 3 (PCR) Not detected Parainfluenza 4 (PCR) Not detected RSV (PCR) Not detected Entero/Rhino (PCR) Not detected 03/27/21 03/27/21 12:05 12:27 WBC RBC Hgb Hct MCV MCH MCHC RDW Plt Count Neut % (Auto) Lymph % (Auto) [place] % (Auto) Eos % (Auto) Baso % (Auto) Lymph # (Auto) [place] # (Auto) Baso # (Auto) Total Counted Seg Neutrophils % Band Neutrophils % Lymphocytes % (Manual) Monocytes % (Manual) Neutrophils # (Manual) Nucleated RBCs RBC Morphology Polychromasia Poikilocytosis Anisocytosis Target Cells PT INR APTT ABG pH 7.29 L* ABG pCO2 89.7 H* ABG pO2 25 L* ABG HCO3 43 H ABG Total CO2 46 H ABG O2 Saturation 34 L* ABG Base Excess 17.0 H FiO2 80 Sodium Potassium Chloride Carbon Dioxide BUN Creatinine Estimated GFR BUN/Creatinine Ratio Glucose Lactate Calcium Total Bilirubin AST ALT Alkaline Phosphatase Ammonia Total Creatine Kinase CK-MB (CK-2) CK-MB (CK-2) Rel Index Troponin I NT-Pro-B Natriuret Pep Total Protein Albumin Globulin Albumin/Globulin Ratio Lipase Procalcitonin TSH Urine Color Yellow Urine Appearance Clear Urine pH 5.0 Ur Specific [place] >=1.030 H Urine Protein 2+ H Urine Glucose (UA) Trace H Urine Ketones Negative Urine Occult Blood Negative Urine Nitrate Negative Urine Bilirubin Negative Urine Urobilinogen 0.2 Ur Leukocyte Esterase Negative Urine RBC None seen Urine WBC 1-5/hpf Ur Transition Epith Cell 1-5/hpf Amorphous Sediment 2+ Urine Bacteria Moderate (10-30) H Ur Culture Indicated? Specimen cultured Salicylates U Opiates 300ng/mL cut Ur Oxycodone Screen Urine Methadone Screen Acetaminophen Ur Barbiturates Screen U Tricyclic Antidepress Ur Phencyclidine Scrn Ur Amphetamines Screen U Methamphetamines Scrn Ur MDMA Scrn (Ecstasy) U Benzodiazepines Scrn Urine Cocaine Screen U Marijuana (THC) Screen Ethyl Alcohol Chlamy pneumoniae PCR Adenovirus (PCR) B. pertussis DNA (PCR) B.parapertussis DNA PCR Coronavirus OC43 (PCR) Coronavirus HKU1 (PCR) Coronavirus 229E (PCR) SARS-CoV-2 (PCR) Coronavirus NL63 (PCR) Human Metapneumovir PCR Influenza Type A (PCR) Influenza Type B (PCR) M. pneumoniae (PCR) Parainfluenza 1 (PCR) Parainfluenza 2 (PCR) Parainfluenza 3 (PCR) Parainfluenza 4 (PCR) RSV (PCR) Entero/Rhino (PCR) Assessment & Plan Assessment & Plan narrative: patient seen and examined chart/labs/imaging reviewed case discussed with admitting physician and bedside nursing pt intubated, sedated, afebrile, HD stable plan -sedaton prn, goal harinder -1, daily sag/sbt -vent support goal pH above 7.25, pao2 above 55, sat 88-92% -steroids/nebs -abx check cxs -check serial ekg/trop first set -ve -CTA -ve for pe -gent hydration if needed, low bp due to sedation -feeds as tolerated -replace lytes prn -gi/dvt ppx -glucose goal 140-18 -please call Tele ICU if condition changes Time Spent With Patient Critical Care time: I spent a total of [] minutes of critical care time on this patient's care today; this time is exclusive of procedural time.
[2021-03-27] MEDS: ENOXAPARIN 40 MG/0.4 ML SYRINGE SUBCUT (15:16)
[2021-03-27] MEDS: PANTOPRAZOLE 40 MG VIAL IV (15:17)
[2021-03-27] MEDS: levoFLOXacin 500 MG/100 ML PIGGYBACK 100 MG IV (15:17)
[2021-03-27] MEDS: fentaNYL 1,000 MCG in DEXTROSE 5% IN WATER 230 ML 23.363 ML IV (15:56)
[2021-03-27] MEDS: propofoL 1,000 MG/100 ML VIAL 16.02 MG IV ×2 (16:02→21:25)
[2021-03-27] MEDS: ALBUTEROL 2.5 MG/3 ML NEB (ADULT) INH (17:34)
[2021-03-27 17:35] LABS: Creatine Kinase 102 U/L (55-170)
[2021-03-27] MEDS: methylPREDNISolone 125 MG/2 ML VIAL 60 MG IV (17:38)
[2021-03-27] MEDS: CHLORHEXIDINE GLUCONATE 15 ML CUP PO (17:38)
[2021-03-27 17:46] LABS: PCO2 VBG 58.1 mmHg (45-50); PO2 VBG 26 mmHg (35-45); pH VBG 7.45 (7.33-7.43)
[2021-03-27] MEDS: INSULIN LISPRO 100 UNIT/ML 3ML VIAL SUBCUT (17:46)
[2021-03-27 17:47] LABS: HCO3 VBG 41 mmol/L (23-28); Oxygen Saturation VBG 50 % (70-75); Total CO2 VBG 42 mmol/L (24-29)
[2021-03-27 17:51] LABS: CKMB % Relative Index 1.9 % (1.5-5.0); Creatine Kinase MB 1.89 ng/mL (<2.37)
--- NOTE | 2021-03-27 18:14 | PC.NURSE ---
Admit Note Patient arrived to room 230 from ER at 1445 via stretcher. Pt moving all extremities when transferred to bed, thrashing and restless. Not following any directions, not opening eyes. Pt tensing and thrashing with stimulation, propofol increased to 20 mcg/kg/min and fentanyl started per MD order at 0.7 mcg/kg/hr. Dr. Ramos on tele-door frame builder screen after patient's arrival and case reviewed. On mechanical ventilator with settings currently TV 450, RR 25, FiO2 40%, and PEEP 5. Goal SpO2 88-92% per tele-ICU MD, currently 91-92%. ETCO2 decreasing since arrival from 43 to now 32. Minimal secretions via ET tube. OG tube to LIS. Repeat ABG attempted by RT without success so VBG obtained. Soft wrist restraints in place bilaterally to protect airway. NSR 70-90s. BP stable with MAP 65 or greater. Rodriguez catheter in place and draining clear yellow urine. MekhierBlas, at bedside and updated on plan of care.
--- NOTE | 2021-03-27 18:40 | RT ---
transport patient from ED to CT , hand bagged and placed on ventilator during CT Scan, no incident, no respiratory distress
[2021-03-27] MEDS: ACETAMINOPHEN 325 MG TABLET 650 MG PO (21:08)
[2021-03-27] MEDS: LACTATED RINGERS 500 ML 1000 ML IV (21:09)
[2021-03-27 21:31] LABS: Hematocrit 33.5 % (41-53); Hemoglobin 10.1 g/dL (13.5-17.5); Mean Corpuscular HGB Conc 30.1 % (30-36); Mean Corpuscular Hemoglobin 25.2 PG (26-34); Mean Corpuscular Volume 83.7 fL (80-100); Platelet Count 453 X10^3/uL (150-400); Red Cell Distribution Width 15.7 % (11.6-14.8); White Blood Cell Count 11.2 X10^3/uL (4.5-11.0)
[2021-03-27 21:34] LABS: Alanine Aminotransferase 26 IU/L (<50); Albumin 3.2 g/dL (3.5-5.0); Alkaline Phosphatase 76 U/L (38-126); Aspartate Aminotransferase 29 IU/L (17-59); BUN Creatinine Ratio 29.9 (6-22); Bilirubin Total 0.6 mg/dL (0.2-1.3); Blood Urea Nitrogen 32 mg/dL (9-20); Calcium 8.7 mg/dL (8.4-10.2); Chloride 93 mmol/L (98-107); Estimated Glomerular Filt Rate > 60.0 mL/min (>60); Globulin 3.1 g/dL (1.7-4.1); Glucose 185 mg/dL (80-110); HEMOLYSIS < 15 (0-50); Potassium 3.7 mmol/L (3.4-5.1); Sodium 136 mmol/L (137-145); Total Protein 6.3 g/dL (6.3-8.2)
[2021-03-27 21:40] LABS: Add Manual Diff / Slide Review YES; Carbon Dioxide 39 mmol/L (22-32)
[2021-03-27] MEDS: LACTATED RINGERS 1,000 ML 125 ML IV (21:45)
--- NOTE | 2021-03-27 21:58 | PM.ICURNDS ---
- :: This patient was seen via real time interactive two-way audiovisual telecommunication. Case discussed with patients RN and brother who are at the bedside Tyshannan written for low grade fever Continue levaquin Reduce RR to 22 BP labile, DC NS infusion, give LR 500 mL bolus followed by 125 mL/hr and reassess F/u ABG in am
[2021-03-27] MEDS: fentaNYL 1,000 MCG in DEXTROSE 5% IN WATER 230 ML 38 ML IV (23:09)
[2021-03-28] VITALS (52 sets, daily range): BP systolic 88–111; BP diastolic 51–65; PULSE 71–89; RESP 3–49; TEMP 36.8–38; O2SAT 89–97
[2021-03-28] MEDS: propofoL 1,000 MG/100 ML VIAL 40.05 MG IV ×2 (00:09→02:04)
[2021-03-28] MEDS: LORazepam 2 MG/ML INJ IV (00:10)
[2021-03-28] MEDS: CHLORHEXIDINE GLUCONATE 15 ML CUP PO ×5 (00:10→23:24)
[2021-03-28] MEDS: methylPREDNISolone 125 MG/2 ML VIAL 60 MG IV ×5 (00:11→23:23)
[2021-03-28] MEDS: ACETAMINOPHEN 325 MG TABLET 650 MG PO (01:35)
[2021-03-28] MEDS: ALBUTEROL/IPRATROPIUM 3 ML AMPUL INH ×6 (03:09→23:21)
[2021-03-28] MEDS: fentaNYL 1,000 MCG in DEXTROSE 5% IN WATER 230 ML 50.063 ML IV (03:51)
[2021-03-28 04:20] LABS: Hypochromasia 2+; Neutrophils Absolute Manual 10416 /uL (3000-5900); Nucleated Red Blood Cells 10 #/Diff; Polychromasia 1+; Total Cells Counted 100
[2021-03-28 04:21] LABS: Anisocytosis 2+; Spherocytes 1+; Target Cells 1+
[2021-03-28] MEDS: propofoL 1,000 MG/100 ML VIAL 32.04 MG IV ×2 (04:32→21:40)
[2021-03-28 05:18] LABS: PCO2 ABG 31.4 mmHg (35-45)
[2021-03-28 05:19] LABS: HCO3 ABG 38 mmol/L (22-26); Oxygen Saturation ABG 93 % (95-100); PO2 ABG 49 mmHg (80-100); TCO2 ABG 39 mmol/L (21-31)
[2021-03-28 05:22] LABS: Fractionated Inspired Oxygen 40
[2021-03-28] MEDS: LACTATED RINGERS 1,000 ML 125 ML IV ×2 (05:28→13:03)
--- NOTE | 2021-03-28 05:37 | PC.NURSE ---
ABG RESULTS - CONTACTED DR. DENISE ABOUT CRITICAL ABG RESULTS WITH RT AT BEDSIDE. MD ORDERED VENTILATOR SETTINGS TO BE FiO2 40%, PEEP 5, RR 16, TV 400. NOTIFIED DR. DENISE ABOUT ETCO2 TRENDING DOWN ALL SHIFT TO 26-29. NOTIFIED DR. DENISE OF FEVER ALL SHIFT AND UNABLE TO BREAK FEVER WITH TYLENOL. DR. DENISE STATED HE WILL LOOK INTO THE ANTIBIOTIC DOSAGE AND TO AWAIT FURTHER ORDERS.
[2021-03-28] MEDS: INSULIN LISPRO 100 UNIT/ML 3ML VIAL SUBCUT ×2 (06:04→13:02)
[2021-03-28 06:47] LABS: Hematocrit 31.8 % (41-53); Hemoglobin 9.9 g/dL (13.5-17.5); Mean Corpuscular HGB Conc 31.2 % (30-36); Mean Corpuscular Hemoglobin 25.3 PG (26-34); Mean Corpuscular Volume 81.1 fL (80-100); Platelet Count 425 X10^3/uL (150-400); Red Blood Cell Count 3.92 X10^6/uL (4.5-5.9); Red Cell Distribution Width 15.8 % (11.6-14.8); White Blood Cell Count 11.9 X10^3/uL (4.5-11.0)
[2021-03-28 06:50] LABS: Add Manual Diff / Slide Review YES
[2021-03-28 06:53] LABS: Alanine Aminotransferase 26 IU/L (<50); Albumin 2.9 g/dL (3.5-5.0); Alkaline Phosphatase 68 U/L (38-126); Aspartate Aminotransferase 42 IU/L (17-59); BUN Creatinine Ratio 28.3 (6-22); Bilirubin Total 0.7 mg/dL (0.2-1.3); Blood Urea Nitrogen 28 mg/dL (9-20); Calcium 8.2 mg/dL (8.4-10.2); Chloride 94 mmol/L (98-107); Creatine Kinase 836 U/L (55-170); Estimated Glomerular Filt Rate > 60.0 mL/min (>60); Globulin 2.9 g/dL (1.7-4.1); Glucose 185 mg/dL (80-110); HEMOLYSIS < 15 (0-50); Magnesium 1.6 mg/dL (1.6-2.3); Potassium 3.3 mmol/L (3.4-5.1); Sodium 133 mmol/L (137-145); Total Protein 5.8 g/dL (6.3-8.2)
[2021-03-28 07:01] LABS: Carbon Dioxide 44 mmol/L (22-32)
[2021-03-28 07:34] LABS: Anisocytosis 1+; Hypochromasia 2+; Neutrophils Absolute Manual 10115 /uL (3000-5900); Nucleated Red Blood Cells 2 #/Diff; Poikilocytosis 1+; Stomatocytes 1+; Target Cells 1+; Total Cells Counted 100
[2021-03-28] MEDS: PANTOPRAZOLE 40 MG VIAL IV (07:45)
[2021-03-28] MEDS: ENOXAPARIN 40 MG/0.4 ML SYRINGE SUBCUT ×2 (07:45→20:51)
[2021-03-28] MEDS: propofoL 1,000 MG/100 ML VIAL 28.035 MG IV ×4 (07:46→18:33)
--- NOTE | 2021-03-28 07:50 | P.PN_ITS ---
Subjective Subjective Date Patient Seen: 03/28/21 Time Patient Seen: 07:50 Interval history: Patient's presentation yesterday discussed with Dr. Lacy. It appears patient has more of appear COPD exacerbation. Based on patient's response to the oxygen replacement therapy is seems clear he is chronically hypercapnic with a large degree of chronic lung disease, larger than I had expected when I saw him as an outpatient. Patient's ABGs also support persistent hypercapnia, and in retrospect his bicarbonate is been elevated fairly consistently over time also consistent with significant pulmonary disease There does not appear to be any other factor here. No evidence of pneumonia on CT imaging no evidence of pulmonary embolism etcetera. Would likely benefit from echocardiography as well Currently being managed by tele intensivists given his need for mechanical ventilation. Patient currently sedated and intubated of course. Exam Vital Signs (past 8 hours): - 03/28/21 00:00 03/28/21 00:01 03/28/21 00:42 Temperature 100.2 F H 100.2 F H Pulse Rate 88 87 86 Respiratory Rate 44 H 44 H 22 Blood Pressure 100/55 L 106/59 L Pulse Oximetry 91 91 03/28/21 01:00 03/28/21 01:01 03/28/21 01:35 Temperature 100.4 F H 100.2 F H 100.2 F H Pulse Rate 84 84 Respiratory Rate 36 H 30 H Blood Pressure 98/53 L Pulse Oximetry 92 92 03/28/21 02:00 03/28/21 02:01 03/28/21 03:00 Temperature 100.2 F H 100.2 F H 100.0 F H Pulse Rate 80 81 77 Respiratory Rate 23 19 20 Blood Pressure 99/54 L 102/59 L Pulse Oximetry 89 L 90 L 91 03/28/21 03:05 03/28/21 03:08 03/28/21 03:09 Temperature 100.0 F H 100.0 F H Pulse Rate 76 77 Respiratory Rate 17 22 Blood Pressure Pulse Oximetry 91 91 03/28/21 03:30 03/28/21 04:00 03/28/21 04:02 Temperature 99.9 F H 99.9 F H 99.9 F H Pulse Rate 81 82 83 Respiratory Rate 7 L 22 22 Blood Pressure 97/54 L 100/53 L Pulse Oximetry 91 90 L 90 L 03/28/21 05:00 03/28/21 05:01 03/28/21 06:00 Temperature 99.7 F H 99.7 F H 99.7 F H Pulse Rate 82 80 77 Respiratory Rate 22 22 16 Blood Pressure 101/58 L Pulse Oximetry 90 L 90 L 90 L Fraction of Inspired Oxygen 40 Oxygen Delivery Method Mechanical Ventilation Narrative Exam Narrative: Patient is sedated and intubated Lungs-Good breath sounds with mechanical ventilation Heart-regular rate and rhythm, heart rate in the 70s Abdomen-benign obese of course, no organomegaly positive bowel tones Objective Labs Result Diagrams: 03/28/21 06:30 03/28/21 06:30 Labs: Laboratory Results - last 24 hr 03/27/21 03/27/21 03/27/21 09:37 09:51 09:51 WBC 12.7 H RBC 4.46 L Hgb 11.4 L Hct 37.8 L MCV 84.8 MCH 25.6 L MCHC 30.2 RDW 15.5 H Plt Count 470 H Neut % (Auto) Not Reportable Lymph % (Auto) Not Reportable [place] % (Auto) Not Reportable Eos % (Auto) Not Reportable Baso % (Auto) Not Reportable Lymph # (Auto) Not Reportable [place] # (Auto) Not Reportable Baso # (Auto) Not Reportable Total Counted 100 Seg Neutrophils % 82.0 H Band Neutrophils % 3.0 Lymphocytes % (Manual) 9.0 L Atypical Lymphs % Monocytes % (Manual) 6.0 Neutrophils # (Manual) 80591 H Nucleated RBCs 4 H RBC Morphology Not Reportable Polychromasia 1+ H Hypochromasia Poikilocytosis 1+ H Anisocytosis 2+ H Spherocytes Target Cells 2+ H Stomatocytes PT INR APTT ABG pH ABG pCO2 ABG pO2 ABG HCO3 ABG Total CO2 ABG O2 Saturation ABG Base Excess VBG pH VBG pCO2 VBG pO2 VBG HCO3 VBG Total CO2 VBG O2 Saturation VBG Base Excess FiO2 Sodium 140 Potassium 4.7 Chloride 94 L Carbon Dioxide 40 H* BUN 34 H Creatinine 1.08 Estimated GFR > 60.0 BUN/Creatinine Ratio 31.5 H Glucose 111 H Lactate Calcium 8.6 Magnesium Total Bilirubin 0.5 AST 31 ALT 34 Alkaline Phosphatase 103 Ammonia Total Creatine Kinase CK-MB (CK-2) CK-MB (CK-2) Rel Index Troponin I NT-Pro-B Natriuret Pep Total Protein 7.7 Albumin 4.0 Globulin 3.7 Albumin/Globulin Ratio 1.1 Lipase 53 Procalcitonin 0.09 TSH Urine Color Urine Appearance Urine pH Ur Specific [place] Urine Protein Urine Glucose (UA) Urine Ketones Urine Occult Blood Urine Nitrate Urine Bilirubin Urine Urobilinogen Ur Leukocyte Esterase Urine RBC Urine WBC Ur Transition Epith Cell Amorphous Sediment Urine Bacteria Ur Culture Indicated? Nasal Screen MRSA (PCR) Salicylates U Opiates 300ng/mL cut Ur Oxycodone Screen Urine Methadone Screen Acetaminophen Ur Barbiturates Screen U Tricyclic Antidepress Ur Phencyclidine Scrn Ur Amphetamines Screen U Methamphetamines Scrn Ur MDMA Scrn (Ecstasy) U Benzodiazepines Scrn Urine Cocaine Screen U Marijuana (THC) Screen Ethyl Alcohol Chlamy pneumoniae PCR Adenovirus (PCR) B. pertussis DNA (PCR) B.parapertussis DNA PCR Coronavirus OC43 (PCR) Coronavirus HKU1 (PCR) Coronavirus 229E (PCR) SARS-CoV-2 (PCR) Negative Coronavirus NL63 (PCR) Human Metapneumovir PCR Influenza Type A (PCR) Influenza Type B (PCR) M. pneumoniae (PCR) Parainfluenza 1 (PCR) Parainfluenza 2 (PCR) Parainfluenza 3 (PCR) Parainfluenza 4 (PCR) RSV (PCR) Entero/Rhino (PCR) 03/27/21 03/27/21 03/27/21 09:51 09:51 09:51 WBC RBC Hgb Hct MCV MCH MCHC RDW Plt Count Neut % (Auto) Lymph % (Auto) [place] % (Auto) Eos % (Auto) Baso % (Auto) Lymph # (Auto) [place] # (Auto) Baso # (Auto) Total Counted Seg Neutrophils % Band Neutrophils % Lymphocytes % (Manual) Atypical Lymphs % Monocytes % (Manual) Neutrophils # (Manual) Nucleated RBCs RBC Morphology Polychromasia Hypochromasia Poikilocytosis Anisocytosis Spherocytes Target Cells Stomatocytes PT 12.5 INR 1.1 APTT 33 ABG pH ABG pCO2 ABG pO2 ABG HCO3 ABG Total CO2 ABG O2 Saturation ABG Base Excess VBG pH VBG pCO2 VBG pO2 VBG HCO3 VBG Total CO2 VBG O2 Saturation VBG Base Excess FiO2 Sodium Potassium Chloride Carbon Dioxide BUN Creatinine Estimated GFR BUN/Creatinine Ratio Glucose Lactate 1.1 Calcium Magnesium Total Bilirubin AST ALT Alkaline Phosphatase Ammonia Total Creatine Kinase 50 L CK-MB (CK-2) TNP CK-MB (CK-2) Rel Index TNP Troponin I 0.016 NT-Pro-B Natriuret Pep 6240 H Total Protein Albumin Globulin Albumin/Globulin Ratio Lipase Procalcitonin TSH Urine Color Urine Appearance Urine pH Ur Specific [place] Urine Protein Urine Glucose (UA) Urine Ketones Urine Occult Blood Urine Nitrate Urine Bilirubin Urine Urobilinogen Ur Leukocyte Esterase Urine RBC Urine WBC Ur Transition Epith Cell Amorphous Sediment Urine Bacteria Ur Culture Indicated? Nasal Screen MRSA (PCR) Salicylates U Opiates 300ng/mL cut Ur Oxycodone Screen Urine Methadone Screen Acetaminophen Ur Barbiturates Screen U Tricyclic Antidepress Ur Phencyclidine Scrn Ur Amphetamines Screen U Methamphetamines Scrn Ur MDMA Scrn (Ecstasy) U Benzodiazepines Scrn Urine Cocaine Screen U Marijuana (THC) Screen Ethyl Alcohol Chlamy pneumoniae PCR Adenovirus (PCR) B. pertussis DNA (PCR) B.parapertussis DNA PCR Coronavirus OC43 (PCR) Coronavirus HKU1 (PCR) Coronavirus 229E (PCR) SARS-CoV-2 (PCR) Coronavirus NL63 (PCR) Human Metapneumovir PCR Influenza Type A (PCR) Influenza Type B (PCR) M. pneumoniae (PCR) Parainfluenza 1 (PCR) Parainfluenza 2 (PCR) Parainfluenza 3 (PCR) Parainfluenza 4 (PCR) RSV (PCR) Entero/Rhino (PCR) 03/27/21 03/27/21 03/27/21 09:51 09:51 09:51 WBC RBC Hgb Hct MCV MCH MCHC RDW Plt Count Neut % (Auto) Lymph % (Auto) [place] % (Auto) Eos % (Auto) Baso % (Auto) Lymph # (Auto) [place] # (Auto) Baso # (Auto) Total Counted Seg Neutrophils % Band Neutrophils % Lymphocytes % (Manual) Atypical Lymphs % Monocytes % (Manual) Neutrophils # (Manual) Nucleated RBCs RBC Morphology Polychromasia Hypochromasia Poikilocytosis Anisocytosis Spherocytes Target Cells Stomatocytes PT INR APTT ABG pH ABG pCO2 ABG pO2 ABG HCO3 ABG Total CO2 ABG O2 Saturation ABG Base Excess VBG pH VBG pCO2 VBG pO2 VBG HCO3 VBG Total CO2 VBG O2 Saturation VBG Base Excess FiO2 Sodium Potassium Chloride Carbon Dioxide BUN Creatinine Estimated GFR BUN/Creatinine Ratio Glucose Lactate Calcium Magnesium Total Bilirubin AST ALT Alkaline Phosphatase Ammonia 42 H Total Creatine Kinase CK-MB (CK-2) CK-MB (CK-2) Rel Index Troponin I NT-Pro-B Natriuret Pep Total Protein Albumin Globulin Albumin/Globulin Ratio Lipase Procalcitonin TSH 3.32 Urine Color Urine Appearance Urine pH Ur Specific [place] Urine Protein Urine Glucose (UA) Urine Ketones Urine Occult Blood Urine Nitrate Urine Bilirubin Urine Urobilinogen Ur Leukocyte Esterase Urine RBC Urine WBC Ur Transition Epith Cell Amorphous Sediment Urine Bacteria Ur Culture Indicated? Nasal Screen MRSA (PCR) Salicylates < 1.0 U Opiates 300ng/mL cut Ur Oxycodone Screen Urine Methadone Screen Acetaminophen < 10 L Ur Barbiturates Screen U Tricyclic Antidepress Ur Phencyclidine Scrn Ur Amphetamines Screen U Methamphetamines Scrn Ur MDMA Scrn (Ecstasy) U Benzodiazepines Scrn Urine Cocaine Screen U Marijuana (THC) Screen Ethyl Alcohol < 10 Chlamy pneumoniae PCR Adenovirus (PCR) B. pertussis DNA (PCR) B.parapertussis DNA PCR Coronavirus OC43 (PCR) Coronavirus HKU1 (PCR) Coronavirus 229E (PCR) SARS-CoV-2 (PCR) Coronavirus NL63 (PCR) Human Metapneumovir PCR Influenza Type A (PCR) Influenza Type B (PCR) M. pneumoniae (PCR) Parainfluenza 1 (PCR) Parainfluenza 2 (PCR) Parainfluenza 3 (PCR) Parainfluenza 4 (PCR) RSV (PCR) Entero/Rhino (PCR) 03/27/21 03/27/21 03/27/21 10:09 10:16 12:05 WBC RBC Hgb Hct MCV MCH MCHC RDW Plt Count Neut % (Auto) Lymph % (Auto) [place] % (Auto) Eos % (Auto) Baso % (Auto) Lymph # (Auto) [place] # (Auto) Baso # (Auto) Total Counted Seg Neutrophils % Band Neutrophils % Lymphocytes % (Manual) Atypical Lymphs % Monocytes % (Manual) Neutrophils # (Manual) Nucleated RBCs RBC Morphology Polychromasia Hypochromasia Poikilocytosis Anisocytosis Spherocytes Target Cells Stomatocytes PT INR APTT ABG pH 7.19 L* ABG pCO2 114.6 H* ABG pO2 31 L* ABG HCO3 44 H ABG Total CO2 47 H ABG O2 Saturation 41 L* ABG Base Excess 16.0 H VBG pH VBG pCO2 VBG pO2 VBG HCO3 VBG Total CO2 VBG O2 Saturation VBG Base Excess FiO2 80 Sodium Potassium Chloride Carbon Dioxide BUN Creatinine Estimated GFR BUN/Creatinine Ratio Glucose Lactate Calcium Magnesium Total Bilirubin AST ALT Alkaline Phosphatase Ammonia Total Creatine Kinase CK-MB (CK-2) CK-MB (CK-2) Rel Index Troponin I NT-Pro-B Natriuret Pep Total Protein Albumin Globulin Albumin/Globulin Ratio Lipase Procalcitonin TSH Urine Color Urine Appearance Urine pH Ur Specific [place] Urine Protein Urine Glucose (UA) Urine Ketones Urine Occult Blood Urine Nitrate Urine Bilirubin Urine Urobilinogen Ur Leukocyte Esterase Urine RBC Urine WBC Ur Transition Epith Cell Amorphous Sediment Urine Bacteria Ur Culture Indicated? Nasal Screen MRSA (PCR) Salicylates U Opiates 300ng/mL cut Negative Ur Oxycodone Screen Negative Urine Methadone Screen Negative Acetaminophen Ur Barbiturates Screen Negative U Tricyclic Antidepress Negative Ur Phencyclidine Scrn Negative Ur Amphetamines Screen Negative U Methamphetamines Scrn Negative Ur MDMA Scrn (Ecstasy) Negative U Benzodiazepines Scrn Negative Urine Cocaine Screen Negative U Marijuana (THC) Screen Positive H Ethyl Alcohol Chlamy pneumoniae PCR Not detected Adenovirus (PCR) Not detected B. pertussis DNA (PCR) Not detected B.parapertussis DNA PCR Not detected Coronavirus OC43 (PCR) Not detected Coronavirus HKU1 (PCR) Not detected Coronavirus 229E (PCR) Not detected SARS-CoV-2 (PCR) Not detected Coronavirus NL63 (PCR) Not detected Human Metapneumovir PCR Not detected Influenza Type A (PCR) Not detected Influenza Type B (PCR) Not detected M. pneumoniae (PCR) Not detected Parainfluenza 1 (PCR) Not detected Parainfluenza 2 (PCR) Not detected Parainfluenza 3 (PCR) Not detected Parainfluenza 4 (PCR) Not detected RSV (PCR) Not detected Entero/Rhino (PCR) Not detected 03/27/21 03/27/21 03/27/21 12:05 12:27 15:00 WBC RBC Hgb Hct MCV MCH MCHC RDW Plt Count Neut % (Auto) Lymph % (Auto) [place] % (Auto) Eos % (Auto) Baso % (Auto) Lymph # (Auto) [place] # (Auto) Baso # (Auto) Total Counted Seg Neutrophils % Band Neutrophils % Lymphocytes % (Manual) Atypical Lymphs % Monocytes % (Manual) Neutrophils # (Manual) Nucleated RBCs RBC Morphology Polychromasia Hypochromasia Poikilocytosis Anisocytosis Spherocytes Target Cells Stomatocytes PT INR APTT ABG pH 7.29 L* ABG pCO2 89.7 H* ABG pO2 25 L* ABG HCO3 43 H ABG Total CO2 46 H ABG O2 Saturation 34 L* ABG Base Excess 17.0 H VBG pH VBG pCO2 VBG pO2 VBG HCO3 VBG Total CO2 VBG O2 Saturation VBG Base Excess FiO2 80 Sodium Potassium Chloride Carbon Dioxide BUN Creatinine Estimated GFR BUN/Creatinine Ratio Glucose Lactate Calcium Magnesium Total Bilirubin AST ALT Alkaline Phosphatase Ammonia Total Creatine Kinase CK-MB (CK-2) CK-MB (CK-2) Rel Index Troponin I NT-Pro-B Natriuret Pep Total Protein Albumin Globulin Albumin/Globulin Ratio Lipase Procalcitonin TSH Urine Color Yellow Urine Appearance Clear Urine pH 5.0 Ur Specific [place] >=1.030 H Urine Protein 2+ H Urine Glucose (UA) Trace H Urine Ketones Negative Urine Occult Blood Negative Urine Nitrate Negative Urine Bilirubin Negative Urine Urobilinogen 0.2 Ur Leukocyte Esterase Negative Urine RBC None seen Urine WBC 1-5/hpf Ur Transition Epith Cell 1-5/hpf Amorphous Sediment 2+ Urine Bacteria Moderate (10-30) H Ur Culture Indicated? Specimen cultured Nasal Screen MRSA (PCR) Negative for mrsa Salicylates U Opiates 300ng/mL cut Ur Oxycodone Screen Urine Methadone Screen Acetaminophen Ur Barbiturates Screen U Tricyclic Antidepress Ur Phencyclidine Scrn Ur Amphetamines Screen U Methamphetamines Scrn Ur MDMA Scrn (Ecstasy) U Benzodiazepines Scrn Urine Cocaine Screen U Marijuana (THC) Screen Ethyl Alcohol Chlamy pneumoniae PCR Adenovirus (PCR) B. pertussis DNA (PCR) B.parapertussis DNA PCR Coronavirus OC43 (PCR) Coronavirus HKU1 (PCR) Coronavirus 229E (PCR) SARS-CoV-2 (PCR) Coronavirus NL63 (PCR) Human Metapneumovir PCR Influenza Type A (PCR) Influenza Type B (PCR) M. pneumoniae (PCR) Parainfluenza 1 (PCR) Parainfluenza 2 (PCR) Parainfluenza 3 (PCR) Parainfluenza 4 (PCR) RSV (PCR) Entero/Rhino (PCR) 03/27/21 03/27/21 03/27/21 17:10 17:15 21:00 WBC 11.2 H RBC 4.00 L Hgb 10.1 L Hct 33.5 L MCV 83.7 MCH 25.2 L MCHC 30.1 RDW 15.7 H Plt Count 453 H Neut % (Auto) Not Reportable Lymph % (Auto) Not Reportable [place] % (Auto) Not Reportable Eos % (Auto) Not Reportable Baso % (Auto) Not Reportable Lymph # (Auto) Not Reportable [place] # (Auto) Not Reportable Baso # (Auto) Not Reportable Total Counted 100 Seg Neutrophils % 93.0 H Band Neutrophils % Lymphocytes % (Manual) 4.0 L Atypical Lymphs % Monocytes % (Manual) 3.0 Neutrophils # (Manual) 17684 H Nucleated RBCs 10 H RBC Morphology See below Polychromasia 1+ H Hypochromasia 2+ H Poikilocytosis Anisocytosis 2+ H Spherocytes 1+ H Target Cells 1+ H Stomatocytes PT INR APTT ABG pH ABG pCO2 ABG pO2 ABG HCO3 ABG Total CO2 ABG O2 Saturation ABG Base Excess VBG pH 7.45 H VBG pCO2 58.1 H VBG pO2 26 L VBG HCO3 41 H VBG Total CO2 42 H VBG O2 Saturation 50 L VBG Base Excess 17.0 H FiO2 Sodium Potassium Chloride Carbon Dioxide BUN Creatinine Estimated GFR BUN/Creatinine Ratio Glucose Lactate Calcium Magnesium Total Bilirubin AST ALT Alkaline Phosphatase Ammonia Total Creatine Kinase 102 CK-MB (CK-2) 1.89 CK-MB (CK-2) Rel Index 1.9 Troponin I 0.020 NT-Pro-B Natriuret Pep Total Protein Albumin Globulin Albumin/Globulin Ratio Lipase Procalcitonin TSH Urine Color Urine Appearance Urine pH Ur Specific [place] Urine Protein Urine Glucose (UA) Urine Ketones Urine Occult Blood Urine Nitrate Urine Bilirubin Urine Urobilinogen Ur Leukocyte Esterase Urine RBC Urine WBC Ur Transition Epith Cell Amorphous Sediment Urine Bacteria Ur Culture Indicated? Nasal Screen MRSA (PCR) Salicylates U Opiates 300ng/mL cut Ur Oxycodone Screen Urine Methadone Screen Acetaminophen Ur Barbiturates Screen U Tricyclic Antidepress Ur Phencyclidine Scrn Ur Amphetamines Screen U Methamphetamines Scrn Ur MDMA Scrn (Ecstasy) U Benzodiazepines Scrn Urine Cocaine Screen U Marijuana (THC) Screen Ethyl Alcohol Chlamy pneumoniae PCR Adenovirus (PCR) B. pertussis DNA (PCR) B.parapertussis DNA PCR Coronavirus OC43 (PCR) Coronavirus HKU1 (PCR) Coronavirus 229E (PCR) SARS-CoV-2 (PCR) Coronavirus NL63 (PCR) Human Metapneumovir PCR Influenza Type A (PCR) Influenza Type B (PCR) M. pneumoniae (PCR) Parainfluenza 1 (PCR) Parainfluenza 2 (PCR) Parainfluenza 3 (PCR) Parainfluenza 4 (PCR) RSV (PCR) Entero/Rhino (PCR) 03/27/21 03/28/21 03/28/21 21:00 05:10 06:30 WBC 11.9 H RBC 3.92 L Hgb 9.9 L Hct 31.8 L MCV 81.1 MCH 25.3 L MCHC 31.2 RDW 15.8 H Plt Count 425 H Neut % (Auto) Not Reportable Lymph % (Auto) Not Reportable [place] % (Auto) Not Reportable Eos % (Auto) Not Reportable Baso % (Auto) Not Reportable Lymph # (Auto) Not Reportable [place] # (Auto) Not Reportable Baso # (Auto) Not Reportable Total Counted 100 Seg Neutrophils % 84.0 H Band Neutrophils % 1.0 L Lymphocytes % (Manual) 3.0 L Atypical Lymphs % 3.0 H Monocytes % (Manual) 9.0 Neutrophils # (Manual) 02914 H Nucleated RBCs 2 H RBC Morphology Not Reportable Polychromasia Hypochromasia 2+ H Poikilocytosis 1+ H Anisocytosis 1+ H Spherocytes Target Cells 1+ H Stomatocytes 1+ H PT INR APTT ABG pH 7.70 H* ABG pCO2 31.4 L ABG pO2 49 L* ABG HCO3 38 H ABG Total CO2 39 H ABG O2 Saturation 93 L ABG Base Excess 18.0 H VBG pH VBG pCO2 VBG pO2 VBG HCO3 VBG Total CO2 VBG O2 Saturation VBG Base Excess FiO2 40 Sodium 136 L Potassium 3.7 Chloride 93 L Carbon Dioxide 39 H BUN 32 H Creatinine 1.07 Estimated GFR > 60.0 BUN/Creatinine Ratio 29.9 H Glucose 185 H Lactate Calcium 8.7 Magnesium Total Bilirubin 0.6 AST 29 ALT 26 Alkaline Phosphatase 76 Ammonia Total Creatine Kinase CK-MB (CK-2) CK-MB (CK-2) Rel Index Troponin I NT-Pro-B Natriuret Pep Total Protein 6.3 Albumin 3.2 L Globulin 3.1 Albumin/Globulin Ratio 1.0 Lipase Procalcitonin TSH Urine Color Urine Appearance Urine pH Ur Specific [place] Urine Protein Urine Glucose (UA) Urine Ketones Urine Occult Blood Urine Nitrate Urine Bilirubin Urine Urobilinogen Ur Leukocyte Esterase Urine RBC Urine WBC Ur Transition Epith Cell Amorphous Sediment Urine Bacteria Ur Culture Indicated? Nasal Screen MRSA (PCR) Salicylates U Opiates 300ng/mL cut Ur Oxycodone Screen Urine Methadone Screen Acetaminophen Ur Barbiturates Screen U Tricyclic Antidepress Ur Phencyclidine Scrn Ur Amphetamines Screen U Methamphetamines Scrn Ur MDMA Scrn (Ecstasy) U Benzodiazepines Scrn Urine Cocaine Screen U Marijuana (THC) Screen Ethyl Alcohol Chlamy pneumoniae PCR Adenovirus (PCR) B. pertussis DNA (PCR) B.parapertussis DNA PCR Coronavirus OC43 (PCR) Coronavirus HKU1 (PCR) Coronavirus 229E (PCR) SARS-CoV-2 (PCR) Coronavirus NL63 (PCR) Human Metapneumovir PCR Influenza Type A (PCR) Influenza Type B (PCR) M. pneumoniae (PCR) Parainfluenza 1 (PCR) Parainfluenza 2 (PCR) Parainfluenza 3 (PCR) Parainfluenza 4 (PCR) RSV (PCR) Entero/Rhino (PCR) 03/28/21 06:30 WBC RBC Hgb Hct MCV MCH MCHC RDW Plt Count Neut % (Auto) Lymph % (Auto) [place] % (Auto) Eos % (Auto) Baso % (Auto) Lymph # (Auto) [place] # (Auto) Baso # (Auto) Total Counted Seg Neutrophils % Band Neutrophils % Lymphocytes % (Manual) Atypical Lymphs % Monocytes % (Manual) Neutrophils # (Manual) Nucleated RBCs RBC Morphology Polychromasia Hypochromasia Poikilocytosis Anisocytosis Spherocytes Target Cells Stomatocytes PT INR APTT ABG pH ABG pCO2 ABG pO2 ABG HCO3 ABG Total CO2 ABG O2 Saturation ABG Base Excess VBG pH VBG pCO2 VBG pO2 VBG HCO3 VBG Total CO2 VBG O2 Saturation VBG Base Excess FiO2 Sodium 133 L Potassium 3.3 L Chloride 94 L Carbon Dioxide 44 H* BUN 28 H Creatinine 0.99 Estimated GFR > 60.0 BUN/Creatinine Ratio 28.3 H Glucose 185 H Lactate Calcium 8.2 L Magnesium 1.6 Total Bilirubin 0.7 AST 42 ALT 26 Alkaline Phosphatase 68 Ammonia Total Creatine Kinase 836 H D CK-MB (CK-2) CK-MB (CK-2) Rel Index Troponin I 0.020 NT-Pro-B Natriuret Pep Total Protein 5.8 L Albumin 2.9 L Globulin 2.9 Albumin/Globulin Ratio 1.0 Lipase Procalcitonin TSH Urine Color Urine Appearance Urine pH Ur Specific [place] Urine Protein Urine Glucose (UA) Urine Ketones Urine Occult Blood Urine Nitrate Urine Bilirubin Urine Urobilinogen Ur Leukocyte Esterase Urine RBC Urine WBC Ur Transition Epith Cell Amorphous Sediment Urine Bacteria Ur Culture Indicated? Nasal Screen MRSA (PCR) Salicylates U Opiates 300ng/mL cut Ur Oxycodone Screen Urine Methadone Screen Acetaminophen Ur Barbiturates Screen U Tricyclic Antidepress Ur Phencyclidine Scrn Ur Amphetamines Screen U Methamphetamines Scrn Ur MDMA Scrn (Ecstasy) U Benzodiazepines Scrn Urine Cocaine Screen U Marijuana (THC) Screen Ethyl Alcohol Chlamy pneumoniae PCR Adenovirus (PCR) B. pertussis DNA (PCR) B.parapertussis DNA PCR Coronavirus OC43 (PCR) Coronavirus HKU1 (PCR) Coronavirus 229E (PCR) SARS-CoV-2 (PCR) Coronavirus NL63 (PCR) Human Metapneumovir PCR Influenza Type A (PCR) Influenza Type B (PCR) M. pneumoniae (PCR) Parainfluenza 1 (PCR) Parainfluenza 2 (PCR) Parainfluenza 3 (PCR) Parainfluenza 4 (PCR) RSV (PCR) Entero/Rhino (PCR) [facility] Medical History Acquired insufficiency of aortic valve (10/08/15) Asthma Cellulitis (~02/2020) Chronic obstructive pulmonary disease (01/19/11) Cobalamin deficiency CTS (carpal tunnel syndrome) Duodenal ulcer Eczema Elevated d-dimer (~02/2020) Essential hypertension Former smoker Gastric ulcer History of malignant neoplasm of prostate Hypothyroidism (08/21/14) Idiopathic peripheral neuropathy Leukocytosis (01/19/11) Low back pain of over 3 months duration (11/15/16) Obesity (01/19/11) Olecranon bursitis of left elbow Osteoarthritis Prostate cancer (2010) Thrombocytosis (01/19/11) Unilateral primary osteoarthritis, right knee Weakness of right lower extremity (11/15/16) Surgical History History of arthroplasty of right knee (05/24/20) History of spinal fusion (2012) History of splenectomy (1975) Status post cataract extraction of both eyes with insertion of intraocular lens Status post wrist surgery (2011) Family History Brother Thyroid cancer Mother Breast cancer Father No problems noted. 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 Respiratory failure-appears to be consistent with severe COPD and hypercapnic respiratory failure. Continue with mechanical ventilation as per tele national accounts recruiter. Continue with IV steroids for his COPD. Check echocardiogram to be sure there is no other underlying factor which seems unlikely but probably worth obtaining. Patient continues with albuterol nebulizers every 4 hours plus as needed. Receiving methylprednisolone 60 mg IV q.6 hours. Is also on antibiotic therapy with levofloxacin for possible community-acquired pneumonia (although no evidence of same (patient with persistent leukocytosis of uncertain etiology since 2016 at least, and admission CBC essentially unchanged from previous, and pro calcitonin was normal) 2. Fluid/electrolytes/renal-patient needs correction of his potassium. Should probably be started on tube feeding as well. Renal function remains normal. Continue with current IV fluids 3. Hypothyroidism-administer patient's levothyroxine via his oral tube 4. GI-continue with IV proton pump inhibitor given his intubated state Overall patient is critically ill due to his respiratory disease. If not showing evidence of improvement over the next 2-3 days would recommend early evaluation for transfer to chronic ventilator hospital as I suspect this patient will be very slow to wean from the ventilator given his premorbid status etcetera. Note: Greater than 30 minutes total time was spent on day of service, evaluating the patient on the floor, including examining the patient, discussing clinical course with clinical and nursing staff, reviewing clinical course in the computer, preparing documentation and writing orders for continued management of care, discussing status with family as appropriate, reviewing plans for the next 24 hours with both patient/family and nursing staff as appropriate. Quality VTE Deep Vein Thrombosis/Pulmonary Embolism Present on Admission: No
[2021-03-28 08:16] LABS: HCO3 ABG 42 mmol/L (22-26); PCO2 ABG 44.5 mmHg (35-45); PO2 ABG 54 mmHg (80-100); pH ABG 7.58 (7.35-7.45)
[2021-03-28 08:17] LABS: Fractionated Inspired Oxygen 50; Oxygen Saturation ABG 92 % (95-100); TCO2 ABG 43 mmol/L (21-31)
[2021-03-28] MEDS: POTASSIUM CHLORIDE IN WATER 10 MEQ/100 ML PIGGYBACK 100 MEQ IV ×6 (08:52→14:21)
--- NOTE | 2021-03-28 09:26 | DIET.CONS ---
Dietary Consultation Note Admission Date: 03/27/2021 12:35 Assessment: 70y M admitted and intubated for acute respiratory failure secondary to severe COPD c exacerbation (hypercapnic c altered mental state) referred to nutrition for tube feeding recommendations. Pt c severe COPD worsening this year, this week started home O2 2L, however, pt with increased weakness, SOB, mental status changes resulting in EMS to home. Per chart review, pt with significant weight gain x7mo (110kg --> 133kg) warrants assessment for fluid overload contributing to SOB and assessment of home diet once extubated. Medicare Advantage plan may cover OP nutrition visits for this patient, unfortunately, general Medicare will not. Pt not on pressor support, receiving propofol 30mcg/kg/min contributing 634 kcals/d. Pt with Class 3 obesity, nutrition support considerations to be made to achieve protein goals without overfeeding kcals which would increase difficulty with extubation. Ht: 170.18 cm Wt: 133.5 kg BMI: 46.0 UBW: 115kg (pt has been gaining weight over past 1y) ABW: 82.9kg Last BM: () MNA: Omari Score: 13 Diet: 03/27/21 09:33 NPO Diet Diet Modifications: NPO Type: Strict Labs: RBC 3.92 X10^6/uL (4.5-5.9) L 03/28/21 06:30 Hgb 9.9 g/dL (13.5-17.5) L 03/28/21 06:30 Hct 31.8 % (41-53) L 03/28/21 06:30 Creatinine 0.99 mg/dL (0.66-1.25) 03/28/21 06:30 Lactate 1.1 mmol/L (0.7-2.1) 03/27/21 09:51 NT-Pro-B Natriuret Pep 6240 pg/mL (<125) H 03/27/21 09:51 Nutrition Diagnosis: inability to tolerate oral intake r/t ventilated and NPO status aeb pt admitted c acute respiratory failure secondary to severe COPD exacerbation, imaging showing bibasilar atelectasis, pt ventilated c OG tube ready for TF. Interventions: 1. Recc evaluating pt for volume overload status secondary to increasing SOB, new need for home O2, 20kg weight gain in 7mo. Take into account when administering free water flushes. 2. Recc continuous OG tube feeding using Pivot 1.5 formula starting at 20mL/h with 400mL free water flushes q4h. If tolerating after 6h, increase feeds to 30mL/h which is goal rate with this formula and propofol running at 30mcg/kg/min. Goal feed provides: 546mL free water Free water flushes provide: 2400mL free water Feed + flushes: 2946mL (35mL/kg ABW) Propofol kcals: 634 Feed kcals: 1152 (14kcal/kg ABW) Total Pro: 86g Total CHO: 124g Total Fat: 107g EER: 86g PRO (1g/kg ABW), 1786kcals (22kcal/kg ABW) Monitoring/Evaluations: TF tolerance, changes to propofol dosing, SBTs Electronically Signed by: Almaz Arellano 03/28/21 09:26 [address] [id number]
[2021-03-28] MEDS: MAGNESIUM SULFATE 2 GM/50 ML PIGGYBACK IV (10:52)
--- NOTE | 2021-03-28 11:10 | P.TELICUPN_ITS ---
Subjective Subjective :: This patient was seen via real time interactive two-way audiovisual telecommunication. patient labs reviewed, severe alkalosis this AM. likely due to overcrorrection of his baseline pco2. Fevers seem improved this AM. on lower vent settings. Current Medications Current Medications Medications: Home Medications cyanocobalamin (vitamin B-12) 1,000 mcg tablet,extended release 1,000 mcg PO QDAY #0 04/04/17 [History Confirmed 03/27/21] diphenhydramine HCl 25 mg capsule (Allergy (diphenhydramine)) 25 mg PO Q4-6H PRN 09/14/17 [History Confirmed 03/27/21] ciclesonide 160 mcg/actuation aerosol inhaler ([place]ves[place]) 2 puff INHALATION BID #6.1 gram 01/14/20 [Rx Confirmed 03/27/21] fluticasone propionate 50 mcg/actuation nasal spray,suspension 2 spray NASAL BEDTIME PRN 02/19/20 [History Confirmed 03/27/21] ipratropium 20 mcg-albuterol 100 mcg/actuation mist for inhalation (Combivent Respimat) 1 puff INHALATION BID 02/19/20 [History Confirmed 03/27/21] duloxetine 30 mg capsule,delayed release 30 mg PO DAILY #90 cap 05/31/20 [Rx Confirmed 03/27/21] omeprazole 40 mg capsule,delayed release 40 mg PO BID #60 cap 05/31/20 [Rx Confirmed 03/27/21] potassium chloride 20 mEq tablet,extended release(part/cryst) (Klor-Con M) 20 meq PO DAILY #30 tab 05/31/20 [Rx Confirmed 03/27/21] levothyroxine 150 mcg tablet See Rx Instructions .ROUTE .COMPLEX #90 tab 06/07/20 [Rx Confirmed 03/27/21] chlorthalidone 25 mg tablet 50 mg PO QDAY #180 tab 06/16/20 [Rx Confirmed 03/27/21] acetaminophen 325 mg tablet 650 mg PO TID #60 tab 08/31/20 [Rx Confirmed 03/27/21] aspirin 81 mg tablet,delayed release 81 mg PO BID #60 tab 08/31/20 [Rx Confirmed 03/27/21] ibuprofen 400 mg tablet 400 mg PO Q4HR #60 tab 08/31/20 [Rx Confirmed 03/27/21] tamsulosin 0.4 mg capsule (Flomax) 0.4 mg PO DAILY #5 cap 08/31/20 [Rx Confirmed 03/27/21] albuterol sulfate 90 mcg/actuation aerosol inhaler (Proventil HFA) 2 puff INHALATION Q4HP PRN #2 device 03/07/21 [Rx Confirmed 03/27/21] triamcinolone acetonide 0.1 % topical cream 1 applic TOPICAL TID #80 g 03/21/21 [Rx Confirmed 03/27/21] Visit Medications (administered) Generic Name Dose Route Start Last Admin Trade Name Freq PRN Reason Stop Dose Admin Acetaminophen 650 mg 03/27/21 20:18 03/28/21 01:35 Acetaminophen 325 Mg Tablet PO 650 mg Q6HR PRN Administration Fever/Mild Pain (1-3) Albuterol 2.5 mg 03/27/21 15:00 03/27/21 17:34 Albuterol 2.5 Mg/3 Ml Neb (Adult) INH 2.5 mg RTQ6HR PRN Administration Shortness Of Breath Albuterol/Ipratropium 3 ml 03/27/21 15:00 03/28/21 07:26 Albuterol/Ipratropium 3 Ml Ampul INH 3 ml RTQ4HR MANAN Administration Chlorhexidine Gluconate 15 ml 03/28/21 00:00 03/28/21 06:03 Chlorhexidine Gluconate 15 Ml Cup PO 15 ml Q6HR MANAN Administration Levofloxacin 500 mg in 100 mls @ 100 mls/hr 03/27/21 14:54 03/27/21 16:39 Levaquin IV Infused Q24H MANAN Infusion Propofol 1,000 mg in 100 mls @ 4.005 mls/hr 03/27/21 14:54 03/28/21 09:53 Propofol IV 35 mcg/kg/min TITRATE MANAN 28.035 mls/hr Titration Protocol 5 MCG/KG/MIN Fentanyl 1,000 mcg/ Dextrose 250 mls @ 23.363 mls/hr 03/27/21 15:15 03/28/21 09:53 IV 0 mcg/kg/hr TITRATE MANAN 0 mls/hr Titration Protocol 0.7 MCG/KG/HR Lactated Ringer's 1,000 mls @ 125 mls/hr 03/27/21 20:30 03/28/21 05:28 Lactated Ringers IV 125 mls/hr CONT MANAN Administration POTASSIUM CHLORIDE IN WATER 10 meq in 100 mls @ 100 mls/hr 03/28/21 08:00 03/28/21 10:52 Potassium Cl 10 Meq/100 Ml Pilar IV 03/28/21 13:59 100 mls/hr Q1H MANAN Administration Magnesium Sulfate 2 gm in 50 mls @ 25 mls/hr 03/28/21 09:47 03/28/21 10:52 Magnesium Sulfate IV 03/28/21 11:46 25 mls/hr NOW ONE Administration Insulin Human Lispro 0 unit 03/27/21 18:00 03/28/21 06:04 Insulin Lispro 100 Unit/Ml 3ml Vial SUBCUT 2 unit Q6H MANAN Administration Protocol Lorazepam 2 mg 03/27/21 23:42 03/28/21 00:10 Lorazepam 2 Mg/Ml Inj IV 2 mg Q3H PRN Administration Sedation Methylprednisolone 60 mg 03/27/21 18:00 03/28/21 06:03 Methylprednisolone 125 Mg/2 Ml Vial IV 60 mg Q6HR MANAN Administration Pantoprazole Sodium 40 mg 03/27/21 14:54 03/28/21 07:45 Pantoprazole 40 Mg Vial IV 40 mg DAILY MANAN Administration Objective Ventilator Parameters: Ventilator Settings FiO2 40 RT Vent Frequency 16 Ventilator Tidal Volume 350 Exhaled Positive End Expiratory 5 Pressure Inspiratory Phase Time 0.9 Patient Position HOB >= 30 degrees Labs Result Diagrams: 03/28/21 06:30 03/28/21 06:30 Labs: Laboratory Results - last 24 hr 03/27/21 03/27/21 03/27/21 09:51 09:51 10:09 WBC RBC Hgb Hct MCV MCH MCHC RDW Plt Count Neut % (Auto) Lymph % (Auto) [place] % (Auto) Eos % (Auto) Baso % (Auto) Lymph # (Auto) [place] # (Auto) Baso # (Auto) Total Counted 100 Seg Neutrophils % 82.0 H Band Neutrophils % 3.0 Lymphocytes % (Manual) 9.0 L Atypical Lymphs % Monocytes % (Manual) 6.0 Neutrophils # (Manual) 17820 H Nucleated RBCs 4 H RBC Morphology Not Reportable Polychromasia 1+ H Hypochromasia Poikilocytosis 1+ H Anisocytosis 2+ H Spherocytes Target Cells 2+ H Stomatocytes ABG pH ABG pCO2 ABG pO2 ABG HCO3 ABG Total CO2 ABG O2 Saturation ABG Base Excess VBG pH VBG pCO2 VBG pO2 VBG HCO3 VBG Total CO2 VBG O2 Saturation VBG Base Excess FiO2 Sodium Potassium Chloride Carbon Dioxide BUN Creatinine Estimated GFR BUN/Creatinine Ratio Glucose Calcium Magnesium Total Bilirubin AST ALT Alkaline Phosphatase Total Creatine Kinase CK-MB (CK-2) CK-MB (CK-2) Rel Index Troponin I Total Protein Albumin Globulin Albumin/Globulin Ratio TSH 3.32 Urine Color Urine Appearance Urine pH Ur Specific [place] Urine Protein Urine Glucose (UA) Urine Ketones Urine Occult Blood Urine Nitrate Urine Bilirubin Urine Urobilinogen Ur Leukocyte Esterase Urine RBC Urine WBC Ur Transition Epith Cell Amorphous Sediment Urine Bacteria Ur Culture Indicated? Nasal Screen MRSA (PCR) U Opiates 300ng/mL cut Ur Oxycodone Screen Urine Methadone Screen Ur Barbiturates Screen U Tricyclic Antidepress Ur Phencyclidine Scrn Ur Amphetamines Screen U Methamphetamines Scrn Ur MDMA Scrn (Ecstasy) U Benzodiazepines Scrn Urine Cocaine Screen U Marijuana (THC) Screen Chlamy pneumoniae PCR Not detected Adenovirus (PCR) Not detected B. pertussis DNA (PCR) Not detected B.parapertussis DNA PCR Not detected Coronavirus OC43 (PCR) Not detected Coronavirus HKU1 (PCR) Not detected Coronavirus 229E (PCR) Not detected SARS-CoV-2 (PCR) Not detected Coronavirus NL63 (PCR) Not detected Human Metapneumovir PCR Not detected Influenza Type A (PCR) Not detected Influenza Type B (PCR) Not detected M. pneumoniae (PCR) Not detected Parainfluenza 1 (PCR) Not detected Parainfluenza 2 (PCR) Not detected Parainfluenza 3 (PCR) Not detected Parainfluenza 4 (PCR) Not detected RSV (PCR) Not detected Entero/Rhino (PCR) Not detected 03/27/21 03/27/21 03/27/21 10:16 12:05 12:05 WBC RBC Hgb Hct MCV MCH MCHC RDW Plt Count Neut % (Auto) Lymph % (Auto) [place] % (Auto) Eos % (Auto) Baso % (Auto) Lymph # (Auto) [place] # (Auto) Baso # (Auto) Total Counted Seg Neutrophils % Band Neutrophils % Lymphocytes % (Manual) Atypical Lymphs % Monocytes % (Manual) Neutrophils # (Manual) Nucleated RBCs RBC Morphology Polychromasia Hypochromasia Poikilocytosis Anisocytosis Spherocytes Target Cells Stomatocytes ABG pH 7.19 L* ABG pCO2 114.6 H* ABG pO2 31 L* ABG HCO3 44 H ABG Total CO2 47 H ABG O2 Saturation 41 L* ABG Base Excess 16.0 H VBG pH VBG pCO2 VBG pO2 VBG HCO3 VBG Total CO2 VBG O2 Saturation VBG Base Excess FiO2 80 Sodium Potassium Chloride Carbon Dioxide BUN Creatinine Estimated GFR BUN/Creatinine Ratio Glucose Calcium Magnesium Total Bilirubin AST ALT Alkaline Phosphatase Total Creatine Kinase CK-MB (CK-2) CK-MB (CK-2) Rel Index Troponin I Total Protein Albumin Globulin Albumin/Globulin Ratio TSH Urine Color Yellow Urine Appearance Clear Urine pH 5.0 Ur Specific [place] >=1.030 H Urine Protein 2+ H Urine Glucose (UA) Trace H Urine Ketones Negative Urine Occult Blood Negative Urine Nitrate Negative Urine Bilirubin Negative Urine Urobilinogen 0.2 Ur Leukocyte Esterase Negative Urine RBC None seen Urine WBC 1-5/hpf Ur Transition Epith Cell 1-5/hpf Amorphous Sediment 2+ Urine Bacteria Moderate (10-30) H Ur Culture Indicated? Specimen cultured Nasal Screen MRSA (PCR) U Opiates 300ng/mL cut Negative Ur Oxycodone Screen Negative Urine Methadone Screen Negative Ur Barbiturates Screen Negative U Tricyclic Antidepress Negative Ur Phencyclidine Scrn Negative Ur Amphetamines Screen Negative U Methamphetamines Scrn Negative Ur MDMA Scrn (Ecstasy) Negative U Benzodiazepines Scrn Negative Urine Cocaine Screen Negative U Marijuana (THC) Screen Positive H Chlamy pneumoniae PCR Adenovirus (PCR) B. pertussis DNA (PCR) B.parapertussis DNA PCR Coronavirus OC43 (PCR) Coronavirus HKU1 (PCR) Coronavirus 229E (PCR) SARS-CoV-2 (PCR) Coronavirus NL63 (PCR) Human Metapneumovir PCR Influenza Type A (PCR) Influenza Type B (PCR) M. pneumoniae (PCR) Parainfluenza 1 (PCR) Parainfluenza 2 (PCR) Parainfluenza 3 (PCR) Parainfluenza 4 (PCR) RSV (PCR) Entero/Rhino (PCR) 03/27/21 03/27/21 03/27/21 12:27 15:00 17:10 WBC RBC Hgb Hct MCV MCH MCHC RDW Plt Count Neut % (Auto) Lymph % (Auto) [place] % (Auto) Eos % (Auto) Baso % (Auto) Lymph # (Auto) [place] # (Auto) Baso # (Auto) Total Counted Seg Neutrophils % Band Neutrophils % Lymphocytes % (Manual) Atypical Lymphs % Monocytes % (Manual) Neutrophils # (Manual) Nucleated RBCs RBC Morphology Polychromasia Hypochromasia Poikilocytosis Anisocytosis Spherocytes Target Cells Stomatocytes ABG pH 7.29 L* ABG pCO2 89.7 H* ABG pO2 25 L* ABG HCO3 43 H ABG Total CO2 46 H ABG O2 Saturation 34 L* ABG Base Excess 17.0 H VBG pH VBG pCO2 VBG pO2 VBG HCO3 VBG Total CO2 VBG O2 Saturation VBG Base Excess FiO2 80 Sodium Potassium Chloride Carbon Dioxide BUN Creatinine Estimated GFR BUN/Creatinine Ratio Glucose Calcium Magnesium Total Bilirubin AST ALT Alkaline Phosphatase Total Creatine Kinase 102 CK-MB (CK-2) 1.89 CK-MB (CK-2) Rel Index 1.9 Troponin I 0.020 Total Protein Albumin Globulin Albumin/Globulin Ratio TSH Urine Color Urine Appearance Urine pH Ur Specific [place] Urine Protein Urine Glucose (UA) Urine Ketones Urine Occult Blood Urine Nitrate Urine Bilirubin Urine Urobilinogen Ur Leukocyte Esterase Urine RBC Urine WBC Ur Transition Epith Cell Amorphous Sediment Urine Bacteria Ur Culture Indicated? Nasal Screen MRSA (PCR) Negative for mrsa U Opiates 300ng/mL cut Ur Oxycodone Screen Urine Methadone Screen Ur Barbiturates Screen U Tricyclic Antidepress Ur Phencyclidine Scrn Ur Amphetamines Screen U Methamphetamines Scrn Ur MDMA Scrn (Ecstasy) U Benzodiazepines Scrn Urine Cocaine Screen U Marijuana (THC) Screen Chlamy pneumoniae PCR Adenovirus (PCR) B. pertussis DNA (PCR) B.parapertussis DNA PCR Coronavirus OC43 (PCR) Coronavirus HKU1 (PCR) Coronavirus 229E (PCR) SARS-CoV-2 (PCR) Coronavirus NL63 (PCR) Human Metapneumovir PCR Influenza Type A (PCR) Influenza Type B (PCR) M. pneumoniae (PCR) Parainfluenza 1 (PCR) Parainfluenza 2 (PCR) Parainfluenza 3 (PCR) Parainfluenza 4 (PCR) RSV (PCR) Entero/Rhino (PCR) 1203/27/21 03/27/21 17:15 21:00 21:00 WBC 11.2 H RBC 4.00 L Hgb 10.1 L Hct 33.5 L MCV 83.7 MCH 25.2 L MCHC 30.1 RDW 15.7 H Plt Count 453 H Neut % (Auto) Not Reportable Lymph % (Auto) Not Reportable [place] % (Auto) Not Reportable Eos % (Auto) Not Reportable Baso % (Auto) Not Reportable Lymph # (Auto) Not Reportable [place] # (Auto) Not Reportable Baso # (Auto) Not Reportable Total Counted 100 Seg Neutrophils % 93.0 H Band Neutrophils % Lymphocytes % (Manual) 4.0 L Atypical Lymphs % Monocytes % (Manual) 3.0 Neutrophils # (Manual) 81300 H Nucleated RBCs 10 H RBC Morphology See below Polychromasia 1+ H Hypochromasia 2+ H Poikilocytosis Anisocytosis 2+ H Spherocytes 1+ H Target Cells 1+ H Stomatocytes ABG pH ABG pCO2 ABG pO2 ABG HCO3 ABG Total CO2 ABG O2 Saturation ABG Base Excess VBG pH 7.45 H VBG pCO2 58.1 H VBG pO2 26 L VBG HCO3 41 H VBG Total CO2 42 H VBG O2 Saturation 50 L VBG Base Excess 17.0 H FiO2 Sodium 136 L Potassium 3.7 Chloride 93 L Carbon Dioxide 39 H BUN 32 H Creatinine 1.07 Estimated GFR > 60.0 BUN/Creatinine Ratio 29.9 H Glucose 185 H Calcium 8.7 Magnesium Total Bilirubin 0.6 AST 29 ALT 26 Alkaline Phosphatase 76 Total Creatine Kinase CK-MB (CK-2) CK-MB (CK-2) Rel Index Troponin I Total Protein 6.3 Albumin 3.2 L Globulin 3.1 Albumin/Globulin Ratio 1.0 TSH Urine Color Urine Appearance Urine pH Ur Specific [place] Urine Protein Urine Glucose (UA) Urine Ketones Urine Occult Blood Urine Nitrate Urine Bilirubin Urine Urobilinogen Ur Leukocyte Esterase Urine RBC Urine WBC Ur Transition Epith Cell Amorphous Sediment Urine Bacteria Ur Culture Indicated? Nasal Screen MRSA (PCR) U Opiates 300ng/mL cut Ur Oxycodone Screen Urine Methadone Screen Ur Barbiturates Screen U Tricyclic Antidepress Ur Phencyclidine Scrn Ur Amphetamines Screen U Methamphetamines Scrn Ur MDMA Scrn (Ecstasy) U Benzodiazepines Scrn Urine Cocaine Screen U Marijuana (THC) Screen Chlamy pneumoniae PCR Adenovirus (PCR) B. pertussis DNA (PCR) B.parapertussis DNA PCR Coronavirus OC43 (PCR) Coronavirus HKU1 (PCR) Coronavirus 229E (PCR) SARS-CoV-2 (PCR) Coronavirus NL63 (PCR) Human Metapneumovir PCR Influenza Type A (PCR) Influenza Type B (PCR) M. pneumoniae (PCR) Parainfluenza 1 (PCR) Parainfluenza 2 (PCR) Parainfluenza 3 (PCR) Parainfluenza 4 (PCR) RSV (PCR) Entero/Rhino (PCR) 03/28/21 03/28/21 03/28/21 05:10 06:30 06:30 WBC 11.9 H RBC 3.92 L Hgb 9.9 L Hct 31.8 L MCV 81.1 MCH 25.3 L MCHC 31.2 RDW 15.8 H Plt Count 425 H Neut % (Auto) Not Reportable Lymph % (Auto) Not Reportable [place] % (Auto) Not Reportable Eos % (Auto) Not Reportable Baso % (Auto) Not Reportable Lymph # (Auto) Not Reportable [place] # (Auto) Not Reportable Baso # (Auto) Not Reportable Total Counted 100 Seg Neutrophils % 84.0 H Band Neutrophils % 1.0 L Lymphocytes % (Manual) 3.0 L Atypical Lymphs % 3.0 H Monocytes % (Manual) 9.0 Neutrophils # (Manual) 29479 H Nucleated RBCs 2 H RBC Morphology Not Reportable Polychromasia Hypochromasia 2+ H Poikilocytosis 1+ H Anisocytosis 1+ H Spherocytes Target Cells 1+ H Stomatocytes 1+ H ABG pH 7.70 H* ABG pCO2 31.4 L ABG pO2 49 L* ABG HCO3 38 H ABG Total CO2 39 H ABG O2 Saturation 93 L ABG Base Excess 18.0 H VBG pH VBG pCO2 VBG pO2 VBG HCO3 VBG Total CO2 VBG O2 Saturation VBG Base Excess FiO2 40 Sodium 133 L Potassium 3.3 L Chloride 94 L Carbon Dioxide 44 H* BUN 28 H Creatinine 0.99 Estimated GFR > 60.0 BUN/Creatinine Ratio 28.3 H Glucose 185 H Calcium 8.2 L Magnesium 1.6 Total Bilirubin 0.7 AST 42 ALT 26 Alkaline Phosphatase 68 Total Creatine Kinase 836 H D CK-MB (CK-2) CK-MB (CK-2) Rel Index Troponin I 0.020 Total Protein 5.8 L Albumin 2.9 L Globulin 2.9 Albumin/Globulin Ratio 1.0 TSH Urine Color Urine Appearance Urine pH Ur Specific [place] Urine Protein Urine Glucose (UA) Urine Ketones Urine Occult Blood Urine Nitrate Urine Bilirubin Urine Urobilinogen Ur Leukocyte Esterase Urine RBC Urine WBC Ur Transition Epith Cell Amorphous Sediment Urine Bacteria Ur Culture Indicated? Nasal Screen MRSA (PCR) U Opiates 300ng/mL cut Ur Oxycodone Screen Urine Methadone Screen Ur Barbiturates Screen U Tricyclic Antidepress Ur Phencyclidine Scrn Ur Amphetamines Screen U Methamphetamines Scrn Ur MDMA Scrn (Ecstasy) U Benzodiazepines Scrn Urine Cocaine Screen U Marijuana (THC) Screen Chlamy pneumoniae PCR Adenovirus (PCR) B. pertussis DNA (PCR) B.parapertussis DNA PCR Coronavirus OC43 (PCR) Coronavirus HKU1 (PCR) Coronavirus 229E (PCR) SARS-CoV-2 (PCR) Coronavirus NL63 (PCR) Human Metapneumovir PCR Influenza Type A (PCR) Influenza Type B (PCR) M. pneumoniae (PCR) Parainfluenza 1 (PCR) Parainfluenza 2 (PCR) Parainfluenza 3 (PCR) Parainfluenza 4 (PCR) RSV (PCR) Entero/Rhino (PCR) 03/28/21 07:44 WBC RBC Hgb Hct MCV MCH MCHC RDW Plt Count Neut % (Auto) Lymph % (Auto) [place] % (Auto) Eos % (Auto) Baso % (Auto) Lymph # (Auto) [place] # (Auto) Baso # (Auto) Total Counted Seg Neutrophils % Band Neutrophils % Lymphocytes % (Manual) Atypical Lymphs % Monocytes % (Manual) Neutrophils # (Manual) Nucleated RBCs RBC Morphology Polychromasia Hypochromasia Poikilocytosis Anisocytosis Spherocytes Target Cells Stomatocytes ABG pH 7.58 H ABG pCO2 44.5 ABG pO2 54 L ABG HCO3 42 H ABG Total CO2 43 H ABG O2 Saturation 92 L ABG Base Excess 20.0 H VBG pH VBG pCO2 VBG pO2 VBG HCO3 VBG Total CO2 VBG O2 Saturation VBG Base Excess FiO2 50 Sodium Potassium Chloride Carbon Dioxide BUN Creatinine Estimated GFR BUN/Creatinine Ratio Glucose Calcium Magnesium Total Bilirubin AST ALT Alkaline Phosphatase Total Creatine Kinase CK-MB (CK-2) CK-MB (CK-2) Rel Index Troponin I Total Protein Albumin Globulin Albumin/Globulin Ratio TSH Urine Color Urine Appearance Urine pH Ur Specific [place] Urine Protein Urine Glucose (UA) Urine Ketones Urine Occult Blood Urine Nitrate Urine Bilirubin Urine Urobilinogen Ur Leukocyte Esterase Urine RBC Urine WBC Ur Transition Epith Cell Amorphous Sediment Urine Bacteria Ur Culture Indicated? Nasal Screen MRSA (PCR) U Opiates 300ng/mL cut Ur Oxycodone Screen Urine Methadone Screen Ur Barbiturates Screen U Tricyclic Antidepress Ur Phencyclidine Scrn Ur Amphetamines Screen U Methamphetamines Scrn Ur MDMA Scrn (Ecstasy) U Benzodiazepines Scrn Urine Cocaine Screen U Marijuana (THC) Screen Chlamy pneumoniae PCR Adenovirus (PCR) B. pertussis DNA (PCR) B.parapertussis DNA PCR Coronavirus OC43 (PCR) Coronavirus HKU1 (PCR) Coronavirus 229E (PCR) SARS-CoV-2 (PCR) Coronavirus NL63 (PCR) Human Metapneumovir PCR Influenza Type A (PCR) Influenza Type B (PCR) M. pneumoniae (PCR) Parainfluenza 1 (PCR) Parainfluenza 2 (PCR) Parainfluenza 3 (PCR) Parainfluenza 4 (PCR) RSV (PCR) Entero/Rhino (PCR) Exam Vital Signs (past 8 hours): - 03/28/21 03:30 03/28/21 04:00 03/28/21 04:02 Temperature 99.9 F H 99.9 F H 99.9 F H Pulse Rate 81 82 83 Respiratory Rate 7 L 22 22 Blood Pressure 97/54 L 100/53 L Pulse Oximetry 91 90 L 90 L 03/28/21 05:00 03/28/21 05:01 03/28/21 06:00 Temperature 99.7 F H 99.7 F H 99.7 F H Pulse Rate 82 80 77 Respiratory Rate 22 22 16 Blood Pressure 101/58 L Pulse Oximetry 90 L 90 L 90 L 03/28/21 07:00 03/28/21 08:00 03/28/21 08:30 Temperature 99.5 F 99.3 F 99.3 F Pulse Rate 71 72 75 Respiratory Rate 16 16 16 Blood Pressure 89/52 L 100/59 L 107/60 Pulse Oximetry 91 90 L 93 03/28/21 09:00 03/28/21 09:30 03/28/21 10:00 Temperature 99.3 F 99.3 F 99.3 F Pulse Rate 77 75 72 Respiratory Rate 16 16 16 Blood Pressure 109/58 L 103/58 L 102/57 L Pulse Oximetry 94 93 Fraction of Inspired Oxygen 40 Oxygen Delivery Method Mechanical Ventilation Quality TeleICU VTE Deep Vein Thrombosis/Pulmonary Embolism Present on Admission: No Assessment & Plan Assessment & Plan narrative: Assessment Acute on chronic resp failure with hypercapenia metabolic alkaosis acute metabolic encephalpahty morbid obesity possible compnent of OHS on his COPD - on home o2 HTN hypothyroidism hld plan -sedaton prn, goal harinder -1, daily sag/sbt - stop fentanyl. psv ytrials this afternoon -drop tv and RR. if alkalosis remains an issue will give diamox - avoid hyperoxia - i suspect the increase in his NC at home likely precipitated this change in mntal status -steroids/nebs - trend chemistries/cbc -CTA -ve for pe -monitor UO - TF this afternoon after another sbt attempt -replace lytes prn -gi/dvt ppx -glucose goal 140-18 - after reviewing the images, i dont beleive there is an active pna, but will wait for cx results befroe de-escalating abx due to his fevers. If the fevers continue wihtou a change in MS , i would suggest an LP -please call Tele ICU if condition changes Time Spent With Patient Critical Care time: I spent a total of [] minutes of critical care time on this patient's care today; this time is exclusive of procedural time.
--- NOTE | 2021-03-28 11:38 | DI.ECHO.S_ITS ---
:Ordering Physician: TOMASA, : :CELIA Curran Performed By: Iris Chang : :Referring: CELIA RANDOLPH : + + Interpretation Summary The study quality was technically difficult. The left ventricle is normal in size and wall thickness. LVEF estimated to be 55-60% Diastolic parameters suggest a relaxation abnormality of the left ventricle, consistent with probable normal filling pressures. The right ventricular systolic function is normal. The left atrium is moderately dilated. No significant valvular disease. There is mild aortic regurgitation, improved when compared to prior study from 2016 Procedure: A two-dimensional transthoracic echocardiogram with color flow and Doppler was performed. Comparison is made with the echocardiogram of 10/06/2015. The study quality was technically difficult. The patient was in sinus rhythm with heart rates between 71-77 bpm during the exam. Left Ventricle: The left ventricle is normal in size and wall thickness. The ejection fraction is estimated to be 55-60%. Diastolic parameters suggest a relaxation abnormality of the left ventricle, consistent with probable normal filling pressures. Right Ventricle: The right ventricle is mildly dilated. The right ventricular systolic function is normal. Atria: The left atrium is moderately dilated. The right atrium is mildly dilated. There is no Doppler evidence for an interatrial shunt. Mitral Valve: The mitral valve leaflets appear mildly thickened, but open well. There is no mitral regurgitation noted. Aortic Valve: The aortic valve is trileaflet. The aortic valve opens well. The aortic valve is slightly calcified. There is no hemodynamically significant valvular aortic stenosis. There is mild aortic regurgitation. Tricuspid Valve: The tricuspid valve is normal in structure and function. There is a trace or physiologic amount of tricuspid regurgitation. Pulmonic Valve: The pulmonic valve is not well visualized. There is no pulmonic valvular regurgitation. Great Vessels: The aortic root is normal size. Inspiratory collapse cannot be assessed because of mechanical ventilation, thus CVP cannot be estimated.. Pericardium/ Pleura There is a trivial pericardial effusion noted. There is no pleural effusion. MMode/2D Measurements & Calculations LVIDd: 5.6 cm LVOT diam: 2.1 cm LVIDs: 3.6 cm Ao root diam: 4.1 cm FS: 36.7 % IVSd: 0.87 cm LVPWd: 1.1 cm LV bailey. diameter/BSA (cm/m^2): 2.4 LV sys. diameter/BSA (cm/m^2): 1.5 LA A2 area: 29.6 cm2 RA long axis: 5.8 cm LA A4 area: 22.8 cm2 RA area: 23.7 cm2 LA length (vol): 5.2 cm RA vol: 82.9 ml LA vol: 110.3 ml RA : 34.8 ml/m2 LA vol index: 46.3 ml/m2 IVC diam: 2.9 cm RVD1 (basal): 4.6 cm TAPSE: 2.1 cm Doppler Measurements & Calculations Ao V2 max: 189.7 cm/sec LVOT Max Romaine: 97.6 cm/sec Ao V2 mean: 138.8 cm/sec LV V1 max P.8 mmHg Ao max P.4 mmHg LV V1 VTI: 21.8 cm Ao mean P.3 mmHg BENJAMIN(I,D): 2.1 cm2 Ao V2 VTI: 37.5 cm BENJAMIN(V,D): 1.8 cm2 sev ratio: 0.58 BENJAMIN indexed to BSA (cm^2/m^2): 0.86 MV E max romaine: 79.9 cm/sec PA V2 max: 92.2 cm/sec MV A max romaine: 84.1 cm/sec PA V2 mean: 61.1 cm/sec MV E/A: 0.95 PA mean P.7 mmHg Med Peak E' Romaine: 6.0 cm/sec PA pr(Accel): 24.2 mmHg E/E' med: 13.4 Lat Peak E' Romaine: 8.5 cm/sec E/E' lat: 9.4 E/e' average: 11.4 MV dec time: 0.28 sec SV(LVOT): 77.1 ml Reading Physician:ZOE
--- NOTE | 2021-03-28 14:45 | CM.DANOTE ---
Patient is a 70 yo male who was admitted on 03/27/21 for SOB/Resp Failure. Pt has [facility] for insurance and his PCP is Dr. Blas Vargas. EMR was reviewed. Per MD, pt with hx of COPD and recent new home oxygen started and prostrate CA at baseline. Pt admitted for Respiratory Failure/Hypoxia and intubated in the ED and more extensive chronic lung disease than initially anticipated. Per RN/RT, pt remains sedated and intubated and per MD pt may be difficult to extubate and if does not improve may need transfer to higher level of care for longer intubation needs. POC unclear at this time. SW called pt's brother Blas who has been bedside at admission and earlier today and explained role and he confirms that pt lives alone in [place] and has never been or had children. Pt is not very mobile at baseline due to his increased oxygen/COPD needs and has not been able to manage the new home O2 very well and brother Blas had to help teach pt about his oxygen and concentrators. confirms that after pt's last admission in August 2020 this year for TKA pt discharged home with [facility] but does not have PP CG that he is aware of. Blas states that pt has a Living Will and executor is other brother Vaughn and himself as far as he knows. Blas is a retired Resident Services Director MD and aware of the challenges with pt's lung disease/COPD and feels SNF likely needed if pt able to be successfully extubated and willing to be available for planning as needed. Pt is fully COVID vaccinated and Full Code and starting on tube feeding today due to sedation/intubation. Plan: SW to follow closely for POC and progress towards determining d/c needs of likely SNF vs hospital transfer or LTAC pending progress. EDITH Wade Discharge Planning/Care Management CM Discharge Assessment Start: 03/28/21 14:43 Freq: Status: Active Protocol: Document 03/28/21 14:43 BF (Rec: 03/28/21 14:45 BF [id number]) Discharge Planning Assessment Assigned Supervisor Inspecting EDITH Eason DPOA/Assigned Designee Name brother Blas and Brothjaja Mendes Contact Information [phone] Advance Directives? No Advance Directives on File No History Provided By Family Member,Medical Record Has Patient been admitted in last 30 No days? Prior Living Arrangements House Household Members none Type of transporation used prior to Drives own vehicle admit Independent with ADL's Yes Is patient alert and oriented? Yes Needs Assistance With Managing Medications,Home Chores / Shopping Caregiver for Another No Community Services used prior to Oxygen Therapy admission: Patient/Family Preference [facility],LTAC Barriers to Discharge Yes Comment intubated, may need transfer/ LTAC/or SNF pending progress Discharge Plan [facility] Community Services Oxygen Therapy Whiteboard Updated in Patient Room with Yes name and ext. # of Supervisor Inspecting Review Status In Process Please Provide Date Initial DC 03/28/21 Assessment Was Performed Next Review Type Continued Stay Review
[2021-03-28] MEDS: levoFLOXacin 500 MG/100 ML PIGGYBACK 100 MG IV (15:36)
--- NOTE | 2021-03-28 18:52 | PC.NURSE ---
Day Shift Note Sedated to RASS -2, propofol infusing at 35 mcg/kg/min. 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 Sedation vacation done this morning, pt unable to follow commands and biting/pushing at tube with teeth. Unable to undergo SBT at that time. Second sedation vacation done this evening, pt awake and following some commands but slow to respond. SBT attempted, tolerated for about 10 min before becoming tachypneic and anxious/restless, unable to redirect and placed back on ventilator.
--- NOTE | 2021-03-28 21:09 | PM.ICURNDS ---
- :: This patient was seen via real time interactive two-way audiovisual telecommunication. Note: Case d/w bedside nurse and RT, events noted, chart reviewed. Morbidly obese male w h/o O2 dependent COPD, intubated for resp failure ABGs reviewed Plan: Drop RR to 10 (Currently 16 and riding), will get ABG 1h post-change and make changes as needed Chnage free water flushes from 300 q4 to 30 q4 Inc TFs to goal (20 -> 30 cc/hr) D/C MIV (LR) Add PRN fent and versed for sedation Critical care time spent taking care of patient not including procedures: 40 min
[2021-03-28 21:17] LABS: Basophils Absolute Auto 100 /uL (0-100); Basophils Percent Auto 0.7 % (0-2); Eosinophils Absolute Auto 0 /uL (0-450); Hematocrit 31.3 % (41-53); Hemoglobin 9.9 g/dL (13.5-17.5); Lymphocytes Absolute Auto 400 /uL (1100-4500); Lymphocytes Percent Auto 2.2 % (25-40); Mean Corpuscular HGB Conc 31.6 % (30-36); Mean Corpuscular Hemoglobin 25.4 PG (26-34); Mean Corpuscular Volume 80.3 fL (80-100); Monocytes Absolute Auto 2100 /uL (0-900); Monocytes Percent Auto 10.8 % (3-14); Neutrophils Absolute Auto 16800 /uL (1500-7000); Neutrophils Percent Auto 86.3 % (50-75); Platelet Count 426 X10^3/uL (150-400); Red Cell Distribution Width 15.8 % (11.6-14.8); White Blood Cell Count 19.5 X10^3/uL (4.5-11.0)
[2021-03-28 21:43] LABS: Add Manual Diff / Slide Review SLIDE REVIEW
[2021-03-28 21:44] LABS: Hypochromasia 2+; Poikilocytosis 1+; Polychromasia 1+; Stomatocytes 1+; Target Cells 1+
[2021-03-28 22:10] LABS: Alanine Aminotransferase 46 IU/L (<50); Albumin 2.9 g/dL (3.5-5.0); Alkaline Phosphatase 62 U/L (38-126); Aspartate Aminotransferase 159 IU/L (17-59); BUN Creatinine Ratio 31.9 (6-22); Bilirubin Total 0.7 mg/dL (0.2-1.3); Blood Urea Nitrogen 30 mg/dL (9-20); Calcium 8.1 mg/dL (8.4-10.2); Chloride 95 mmol/L (98-107); Estimated Glomerular Filt Rate > 60.0 mL/min (>60); Glucose 149 mg/dL (80-110); HEMOLYSIS < 15 (0-50); Potassium 4.1 mmol/L (3.4-5.1); Sodium 133 mmol/L (137-145); Total Protein 5.9 g/dL (6.3-8.2)
[2021-03-28 22:20] LABS: Carbon Dioxide 40 mmol/L (22-32)
[2021-03-28 23:17] LABS: HCO3 ABG 38 mmol/L (22-26); Oxygen Saturation ABG 94 % (95-100); PCO2 ABG 57.9 mmHg (35-45); PO2 ABG 72 mmHg (80-100); TCO2 ABG 40 mmol/L (21-31); pH ABG 7.42 (7.35-7.45)
[2021-03-28 23:18] LABS: Fractionated Inspired Oxygen 40
[2021-03-28] MEDS: dexmedeTOMIDine in 0.9 % NaCL 400 MCG/100 ML PLAST..BAG 6.65 MCG IV (23:23)
[2021-03-29] VITALS (47 sets, daily range): BP systolic 103–159; BP diastolic 58–84; PULSE 59–78; RESP 4–29; TEMP 32–37.3; O2SAT 92–99
[2021-03-29] MEDS: propofoL 1,000 MG/100 ML VIAL 20.025 MG IV (00:37)
[2021-03-29] MEDS: dexmedeTOMIDine in 0.9 % NaCL 400 MCG/100 ML PLAST..BAG 19.95 MCG IV (03:46)
[2021-03-29] MEDS: ALBUTEROL/IPRATROPIUM 3 ML AMPUL INH ×6 (04:19→22:50)
[2021-03-29] MEDS: propofoL 1,000 MG/100 ML VIAL 16.02 MG IV (05:09)
[2021-03-29] MEDS: CHLORHEXIDINE GLUCONATE 15 ML CUP PO ×2 (06:16→13:37)
[2021-03-29] MEDS: LEVOTHYROXINE 150 MCG TABLET TUBE (06:17)
[2021-03-29] MEDS: INSULIN LISPRO 100 UNIT/ML 3ML VIAL SUBCUT ×2 (06:17→13:39)
[2021-03-29] MEDS: methylPREDNISolone 125 MG/2 ML VIAL 60 MG IV ×4 (06:17→23:47)
--- NOTE | 2021-03-29 06:38 | PC.NURSE ---
READJUSTED PROPOFOL AND PRECEDEX PUMPS FOR WEIGHT OF 128.2 KG.
--- NOTE | 2021-03-29 06:51 | PM.PN.1 ---
Subjective Subjective Date Patient Seen: 03/29/21 Time Patient Seen: 06:51 Interval history: Patient continues to be sedated and intubated, now on Precedex in addition to propofol and fentanyl Adjustments in ventilator have resulted in much more favorable ABG Electrolytes have been corrected Tube feedings have been initiated, and IV fluids reduced/eliminated White count increased slightly on lab work Exam Vital Signs (past 8 hours): - 03/28/21 23:00 03/28/21 23:05 03/29/21 00:00 Temperature 98.6 F 98.6 F 98.8 F Pulse Rate 76 76 78 Respiratory Rate 19 23 24 Blood Pressure 96/54 L 103/60 Pulse Oximetry 93 93 93 03/29/21 00:05 03/29/21 01:00 03/29/21 01:02 Temperature 98.8 F 98.4 F 98.4 F Pulse Rate 77 73 72 Respiratory Rate 27 H 29 H 29 H Blood Pressure 108/60 Pulse Oximetry 93 92 93 03/29/21 02:00 03/29/21 02:02 03/29/21 03:00 Temperature 98.2 F 98.2 F 98.1 F Pulse Rate 67 68 65 Respiratory Rate 17 17 17 Blood Pressure 118/68 123/70 Pulse Oximetry 93 93 93 03/29/21 03:01 03/29/21 04:00 03/29/21 04:01 Temperature 98.1 F 98.1 F 98.1 F Pulse Rate 65 63 63 Respiratory Rate 17 15 17 Blood Pressure 123/68 Pulse Oximetry 93 94 94 03/29/21 05:00 03/29/21 05:01 03/29/21 06:00 Temperature 98.2 F 98.2 F 98.2 F Pulse Rate 71 72 68 Respiratory Rate 17 17 16 Blood Pressure 113/62 126/67 Pulse Oximetry 93 93 93 Fraction of Inspired Oxygen 40 Oxygen Delivery Method Mechanical Ventilation Objective Labs Result Diagrams: 03/28/21 21:05 03/28/21 21:05 Labs: Laboratory Results - last 24 hr 03/28/21 03/28/21 03/28/21 06:30 06:30 07:44 WBC RBC Hgb Hct MCV MCH MCHC RDW Plt Count Neut % (Auto) Lymph % (Auto) [place] % (Auto) Eos % (Auto) Baso % (Auto) Neut # (Auto) Lymph # (Auto) [place] # (Auto) Eos # (Auto) Baso # (Auto) Total Counted 100 Seg Neutrophils % 84.0 H Band Neutrophils % 1.0 L Lymphocytes % (Manual) 3.0 L Atypical Lymphs % 3.0 H Monocytes % (Manual) 9.0 Neutrophils # (Manual) 99094 H Nucleated RBCs 2 H RBC Morphology Not Reportable Polychromasia Hypochromasia 2+ H Poikilocytosis 1+ H Anisocytosis 1+ H Target Cells 1+ H Stomatocytes 1+ H ABG pH 7.58 H ABG pCO2 44.5 ABG pO2 54 L ABG HCO3 42 H ABG Total CO2 43 H ABG O2 Saturation 92 L ABG Base Excess 20.0 H FiO2 50 Sodium 133 L Potassium 3.3 L Chloride 94 L Carbon Dioxide 44 H* BUN 28 H Creatinine 0.99 Estimated GFR > 60.0 BUN/Creatinine Ratio 28.3 H Glucose 185 H Calcium 8.2 L Magnesium 1.6 Total Bilirubin 0.7 AST 42 ALT 26 Alkaline Phosphatase 68 Total Creatine Kinase 836 H D Troponin I 0.020 Total Protein 5.8 L Albumin 2.9 L Globulin 2.9 Albumin/Globulin Ratio 1.0 03/28/21 03/28/21 03/28/21 21:05 21:05 21:40 WBC 19.5 H D RBC 3.90 L Hgb 9.9 L Hct 31.3 L MCV 80.3 MCH 25.4 L MCHC 31.6 RDW 15.8 H Plt Count 426 H Neut % (Auto) 86.3 H Lymph % (Auto) 2.2 L [place] % (Auto) 10.8 Eos % (Auto) 0.0 L Baso % (Auto) 0.7 Neut # (Auto) 81603 H Lymph # (Auto) 400 L [place] # (Auto) 2100 H Eos # (Auto) 0 Baso # (Auto) 100 Total Counted Seg Neutrophils % Band Neutrophils % Lymphocytes % (Manual) Atypical Lymphs % Monocytes % (Manual) Neutrophils # (Manual) Nucleated RBCs RBC Morphology See below Polychromasia 1+ H Hypochromasia 2+ H Poikilocytosis 1+ H Anisocytosis Target Cells 1+ H Stomatocytes 1+ H ABG pH 7.42 ABG pCO2 57.9 H ABG pO2 72 L ABG HCO3 38 H ABG Total CO2 40 H ABG O2 Saturation 94 L ABG Base Excess 13.0 H FiO2 40 Sodium 133 L Potassium 4.1 Chloride 95 L Carbon Dioxide 40 H* BUN 30 H Creatinine 0.94 Estimated GFR > 60.0 BUN/Creatinine Ratio 31.9 H Glucose 149 H Calcium 8.1 L Magnesium Total Bilirubin 0.7 AST 159 H ALT 46 Alkaline Phosphatase 62 Total Creatine Kinase Troponin I Total Protein 5.9 L Albumin 2.9 L Globulin 3.0 Albumin/Globulin Ratio 1.0 PFSH Medical History Acquired insufficiency of aortic valve (10/08/15) Asthma Cellulitis (~02/2020) Chronic obstructive pulmonary disease (01/19/11) Cobalamin deficiency CTS (carpal tunnel syndrome) Duodenal ulcer Eczema Elevated d-dimer (~02/2020) Essential hypertension Former smoker Gastric ulcer History of malignant neoplasm of prostate Hypothyroidism (08/21/14) Idiopathic peripheral neuropathy Leukocytosis (01/19/11) Low back pain of over 3 months duration (11/15/16) Obesity (01/19/11) Olecranon bursitis of left elbow Osteoarthritis Prostate cancer (2010) Thrombocytosis (01/19/11) Unilateral primary osteoarthritis, right knee Weakness of right lower extremity (11/15/16) Surgical History History of arthroplasty of right knee (05/24/20) History of spinal fusion (2012) History of splenectomy (1975) Status post cataract extraction of both eyes with insertion of intraocular lens Status post wrist surgery (2011) Family History Brother Thyroid cancer Mother Breast cancer Father No problems noted. 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 Respiratory failure-continue with mechanical ventilation. Continue with treatment for COPD including parental steroids nebulizer treatments etcetera. 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 Current vent setting seem entirely appropriate given improvement in ABG. However I do anticipate this may be a difficult person to wean from the ventilator, although sometimes is just not clear until attempts are made. Sputum culture/washes show abundance of white blood cells maybe early growth on cultures. Continue to monitor for evidence of secondary infection etcetera. Does continue on IV antibiotics (levofloxacin). Despite increased white blood cell count is been afebrile and appears to be easy to ventilate and no clear change to sputum when suctioned. 2. Fluids/electrolytes/nutrition-electrolytes corrected. Renal function stable. Tube feedings initiated by telling intensivists 3. Hypothyroidism-continue with levothyroxine via tube 4. GI-continue with GI prophylaxis with parental proton pump inhibitor Note: Greater than 30 minutes total time was spent on day of service, evaluating the patient on the floor, including examining the patient, discussing clinical course with clinical and nursing staff, reviewing clinical course in the computer, preparing documentation and writing orders for continued management of care, discussing status with family as appropriate, reviewing plans for the next 24 hours with both patient/family and nursing staff as appropriate. Quality VTE Deep Vein Thrombosis/Pulmonary Embolism Present on Admission: No
[2021-03-29] MEDS: dexmedeTOMIDine in 0.9 % NaCL 400 MCG/100 ML PLAST..BAG 16.625 MCG IV (08:28)
[2021-03-29] MEDS: ENOXAPARIN 40 MG/0.4 ML SYRINGE SUBCUT ×2 (08:54→20:56)
[2021-03-29] MEDS: PANTOPRAZOLE 40 MG VIAL IV (08:55)
[2021-03-29] MEDS: FUROSEMIDE 20 MG/2 ML VIAL IV (11:19)
[2021-03-29 11:58] LABS: pH ABG 7.45 (7.35-7.45)
[2021-03-29 11:59] LABS: Fractionated Inspired Oxygen 40; HCO3 ABG 37 mmol/L (22-26); Oxygen Saturation ABG 91 % (95-100); PCO2 ABG 53.2 mmHg (35-45); PO2 ABG 59 mmHg (80-100); TCO2 ABG 39 mmol/L (21-31)
--- NOTE | 2021-03-29 12:18 | PM.PN.EICU ---
Subjective Subjective :: This patient was seen via real time interactive two-way audiovisual telecommunication. doing well this am aler awake following commands with some agitation Current Medications Current Medications Medications: Home Medications cyanocobalamin (vitamin B-12) 1,000 mcg tablet,extended release 1,000 mcg PO QDAY #0 04/04/17 [History Confirmed 03/27/21] diphenhydramine HCl 25 mg capsule (Allergy (diphenhydramine)) 25 mg PO Q4-6H PRN 09/14/17 [History Confirmed 03/27/21] ciclesonide 160 mcg/actuation aerosol inhaler (Alvesco) 2 puff INHALATION BID #6.1 gram 01/14/20 [Rx Confirmed 03/27/21] fluticasone propionate 50 mcg/actuation nasal spray,suspension 2 spray NASAL BEDTIME PRN 02/19/20 [History Confirmed 03/27/21] ipratropium 20 mcg-albuterol 100 mcg/actuation mist for inhalation (Combivent Respimat) 1 puff INHALATION BID 02/19/20 [History Confirmed 03/27/21] duloxetine 30 mg capsule,delayed release 30 mg PO DAILY #90 cap 05/31/20 [Rx Confirmed 03/27/21] omeprazole 40 mg capsule,delayed release 40 mg PO BID #60 cap 05/31/20 [Rx Confirmed 03/27/21] potassium chloride 20 mEq tablet,extended release(part/cryst) (Klor-Con M) 20 meq PO DAILY #30 tab 05/31/20 [Rx Confirmed 03/27/21] levothyroxine 150 mcg tablet See Rx Instructions .ROUTE .COMPLEX #90 tab 06/07/20 [Rx Confirmed 03/27/21] chlorthalidone 25 mg tablet 50 mg PO QDAY #180 tab 06/16/20 [Rx Confirmed 03/27/21] acetaminophen 325 mg tablet 650 mg PO TID #60 tab 08/31/20 [Rx Confirmed 03/27/21] aspirin 81 mg tablet,delayed release 81 mg PO BID #60 tab 08/31/20 [Rx Confirmed 03/27/21] ibuprofen 400 mg tablet 400 mg PO Q4HR #60 tab 08/31/20 [Rx Confirmed 03/27/21] tamsulosin 0.4 mg capsule (Flomax) 0.4 mg PO DAILY #5 cap 08/31/20 [Rx Confirmed 03/27/21] albuterol sulfate 90 mcg/actuation aerosol inhaler (Proventil HFA) 2 puff INHALATION Q4HP PRN #2 device 03/07/21 [Rx Confirmed 03/27/21] triamcinolone acetonide 0.1 % topical cream 1 applic TOPICAL TID #80 g 03/21/21 [Rx Confirmed 03/27/21] Visit Medications (administered) Generic Name Dose Route Start Last Admin Trade Name Freq PRN Reason Stop Dose Admin Acetaminophen 650 mg 03/27/21 20:18 03/28/21 01:35 Acetaminophen 325 Mg Tablet PO 650 mg Q6HR PRN Administration Fever/Mild Pain (1-3) Albuterol 2.5 mg 03/27/21 15:00 03/27/21 17:34 Albuterol 2.5 Mg/3 Ml Neb (Adult) INH 2.5 mg RTQ6HR PRN Administration Shortness Of Breath Albuterol/Ipratropium 3 ml 03/27/21 15:00 03/29/21 11:01 Albuterol/Ipratropium 3 Ml Ampul INH 3 ml RTQ4HR MANAN Administration Chlorhexidine Gluconate 15 ml 03/28/21 00:00 03/29/21 06:16 Chlorhexidine Gluconate 15 Ml Cup PO 15 ml Q6HR MANAN Administration Enoxaparin Sodium 40 mg 03/28/21 21:00 03/29/21 08:54 Enoxaparin 40 Mg/0.4 Ml Syringe SUBCUT 40 mg BID MANAN Administration Levofloxacin 500 mg in 100 mls @ 100 mls/hr 03/27/21 14:54 03/28/21 16:54 Levaquin IV Infused Q24H MANAN Infusion Propofol 1,000 mg in 100 mls @ 4.005 mls/hr 03/27/21 14:54 03/29/21 11:08 Propofol IV 0 mcg/kg/min TITRATE MANAN 0 mls/hr Titration Protocol 5 MCG/KG/MIN Fentanyl 1,000 mcg/ Dextrose 250 mls @ 23.363 mls/hr 03/27/21 15:15 03/28/21 09:53 IV 0 mcg/kg/hr TITRATE MANAN 0 mls/hr Titration Protocol 0.7 MCG/KG/HR dexmedeTOMIDine in 0.9 % NaCL 400 mcg in 100 mls @ 6.65 mls/hr 03/28/21 22:00 03/29/21 09:46 Precedex IV 0.7 mcg/kg/hr TITRATE MANAN 23.275 mls/hr Titration Protocol 0.2 MCG/KG/HR Insulin Human Lispro 0 unit 03/27/21 18:00 03/29/21 06:17 Insulin Lispro 100 Unit/Ml 3ml Vial SUBCUT 2 unit Q6H MANAN Administration Protocol Levothyroxine Sodium 150 mcg 03/29/21 06:00 03/29/21 06:17 Levothyroxine 150 Mcg Tablet TUBE 150 mcg DAILY@0600 MANAN Administration Lorazepam 2 mg 03/27/21 23:42 03/28/21 00:10 Lorazepam 2 Mg/Ml Inj IV 2 mg Q3H PRN Administration Sedation Methylprednisolone 60 mg 03/27/21 18:00 03/29/21 06:17 Methylprednisolone 125 Mg/2 Ml Vial IV 60 mg Q6HR MANAN Administration Pantoprazole Sodium 40 mg 03/27/21 14:54 03/29/21 08:55 Pantoprazole 40 Mg Vial IV 40 mg DAILY MANAN Administration Objective Ventilator Parameters: Ventilator Settings FiO2 40 RT Vent Frequency 10 Ventilator Tidal Volume 350 Exhaled Positive End Expiratory 5 Pressure Inspiratory Phase Time 0.9 I:E Ratio 1:5.6 Patient Position HOB >= 30 degrees Labs Result Diagrams: 03/28/21 21:05 03/28/21 21:05 Labs: Laboratory Results - last 24 hr 03/28/21 03/28/21 03/28/21 21:05 21:05 21:40 WBC 19.5 H D RBC 3.90 L Hgb 9.9 L Hct 31.3 L MCV 80.3 MCH 25.4 L MCHC 31.6 RDW 15.8 H Plt Count 426 H Neut % (Auto) 86.3 H Lymph % (Auto) 2.2 L [place] % (Auto) 10.8 Eos % (Auto) 0.0 L Baso % (Auto) 0.7 Neut # (Auto) 44869 H Lymph # (Auto) 400 L [place] # (Auto) 2100 H Eos # (Auto) 0 Baso # (Auto) 100 RBC Morphology See below Polychromasia 1+ H Hypochromasia 2+ H Poikilocytosis 1+ H Target Cells 1+ H Stomatocytes 1+ H ABG pH 7.42 ABG pCO2 57.9 H ABG pO2 72 L ABG HCO3 38 H ABG Total CO2 40 H ABG O2 Saturation 94 L ABG Base Excess 13.0 H FiO2 40 Sodium 133 L Potassium 4.1 Chloride 95 L Carbon Dioxide 40 H* BUN 30 H Creatinine 0.94 Estimated GFR > 60.0 BUN/Creatinine Ratio 31.9 H Glucose 149 H Calcium 8.1 L Total Bilirubin 0.7 AST 159 H ALT 46 Alkaline Phosphatase 62 Total Protein 5.9 L Albumin 2.9 L Globulin 3.0 Albumin/Globulin Ratio 1.0 03/29/21 11:15 WBC RBC Hgb Hct MCV MCH MCHC RDW Plt Count Neut % (Auto) Lymph % (Auto) [place] % (Auto) Eos % (Auto) Baso % (Auto) Neut # (Auto) Lymph # (Auto) [place] # (Auto) Eos # (Auto) Baso # (Auto) RBC Morphology Polychromasia Hypochromasia Poikilocytosis Target Cells Stomatocytes ABG pH 7.45 ABG pCO2 53.2 H ABG pO2 59 L ABG HCO3 37 H ABG Total CO2 39 H ABG O2 Saturation 91 L ABG Base Excess 13.0 H FiO2 40 Sodium Potassium Chloride Carbon Dioxide BUN Creatinine Estimated GFR BUN/Creatinine Ratio Glucose Calcium Total Bilirubin AST ALT Alkaline Phosphatase Total Protein Albumin Globulin Albumin/Globulin Ratio Exam Vital Signs (past 8 hours): - 03/29/21 05:00 03/29/21 05:01 03/29/21 06:00 Temperature 98.2 F 98.2 F 98.2 F Pulse Rate 71 72 68 Respiratory Rate 17 17 16 Blood Pressure 113/62 126/67 Pulse Oximetry 93 93 93 03/29/21 07:00 03/29/21 08:00 03/29/21 09:00 Temperature 98.2 F 98.2 F 98.2 F Pulse Rate 65 70 71 Respiratory Rate 15 18 17 Blood Pressure 129/69 122/67 124/65 Pulse Oximetry 95 93 94 03/29/21 10:00 03/29/21 11:00 Temperature 97.9 F 98.2 F Pulse Rate 64 74 Respiratory Rate 15 16 Blood Pressure 123/62 125/67 Pulse Oximetry 94 93 Fraction of Inspired Oxygen 40 Oxygen Delivery Method [facility]/Pulmonary Embolism Present on Admission: No Assessment & Plan Assessment & Plan narrative: patient seen and examined with bedside nurse chart/labs/imaging reviewed aferbrile, HD stable Acute on chronic resp failure with hypercapenia metabolic alkaosis acute metabolic encephalpahty morbid obesity possible compnent of OHS on his COPD - on home o2 HTN hypothyroidism hld plan -extubated to bipap today -keep sat between 88-92%, avoid too much o2 -abx for 1 more day if cxs -ve can dc -dc sedatives -continue nebs/steroids, can change to po once pt can able -lasxi 20mg ivp now -check bmp -avoid ivf -gi/dvt ppx -keep glucose 140-180s -please call Tele ICU if condition changes Time Spent With Patient Critical Care time: I spent a total of [] minutes of critical care time on this patient's care today; this time is exclusive of procedural time.
[2021-03-29 13:35] LABS: pH ABG 7.29 (7.35-7.45)
[2021-03-29 13:36] LABS: Fractionated Inspired Oxygen 80
[2021-03-29] MEDS: dexmedeTOMIDine in 0.9 % NaCL 400 MCG/100 ML PLAST..BAG 23.275 MCG IV ×2 (13:38→18:03)
--- NOTE | 2021-03-29 14:11 | PC.NURSE ---
Addendum entered by Sarah Sanchez R.N. 04/07/21 12:01: Restraints discontinued at the time of extubation (1258 on 03/29/21), no longer necessary. Original Note: Day shift note: Propofol infusing at 15 mcg/kg/min, sedated to RASS -2, Precedex infusing at 0.5 mcg/kg/hr. Vent settings FiO2 40% rate 10 PEEP 5 TV 350 CO2 goal is 60, this is vent day 3. Per ICU outpatient dietitian attempted a sedation vacation at 0830 pt was extremely agitated, unable to follow command and biting/pushing at tube, pt attempted to pull at tubes. Per tele-outpatient dietitian attempt sedation vacation again, at 1100 pt able to follow commands and remain calm, turned off propofol at 1130 with pt extubation. Placed on Bipap 16/8 FiO2 35%. Tube feeding d/c'd at this time. 1258 Pt attempting to remove BiPap with brother at bedside, per RT placed pt on 3.5L NC spO2 92-94%, will monitor and titrate to COPD guidelines of spO2 88%. Pt remains confused, asking repetitive questions, unable to name place, date, year or president. Brother states pt is not at baseline. Bedside swallow evaluation completed, requested official swallow eval by speech therapy, bed low and locked, call light within reach, will continue to treat and monitor as ordered.
--- NOTE | 2021-03-29 14:54 | DI.RAD.S_ITS ---
PROCEDURE: XR CHEST 1V INDICATIONS: respiratory failure TECHNIQUE: One view of the chest was acquired. COMPARISON: [facility], CR, XR CHEST 1V, 02/24/2020, 13:41. [facility], CR, XR CHEST 1V, 02/18/2020, 16:17. FINDINGS: Surgical changes and devices: Endotracheal tube in the lower trachea. Enteric tube coursing into the stomach. The tip is not seen. ACDF. Lungs and pleura: Mild dependent airspace opacity bilaterally. No pleural effusions or pneumothorax. Mediastinum: Mediastinal contours appear unchanged. Heart size is enlarged. Prominent pericardial fat pad. Bones and chest wall: No suspicious bony lesions. Left-sided rib fractures seen on recent CT are not well appreciated. Overlying soft tissues appear unremarkable. IMPRESSION: 1. Tubes and lines project in the expected locations. 2. Mild dependent airspace opacity. This could be due to atelectasis or pneumonia. Dictated by: Phani Bailey M.D. on 03/29/2021 at 7:58 Approved by: Phani Bailey M.D. on 03/29/2021 at 8:03
[2021-03-29] MEDS: levoFLOXacin 500 MG/100 ML PIGGYBACK 100 MG IV (15:00)
--- NOTE | 2021-03-29 16:37 | ST.IPCSEOM ---
Visit Care Team Role Provider Type Kael Sahni MD Other Providers Physician Specialty: Medical Address: Phone: Fax: Email: Christin Mejia MD Other Providers Physician Specialty: Medical Address: Phone: Fax: Email: Laina Sal MD Other Providers Physician Specialty: Medical Address: Phone: Fax: Email: Orville Ramos MD Other Providers Physician Specialty: Medical Address: Phone: Fax: Email: Charlette Neff MD Other Providers Physician Specialty: Internal Medicine Address: Phone: Fax: Email: Pedro Azul MD Other Providers Physician Specialty: Medical Address: Phone: Fax: Email: Raphael Pemberton MD Other Providers Physician Specialty: Internal Medicine Address: Phone: Fax: Email: Manohar Soto MD Other Providers Physician Specialty: Medical Address: Phone: Fax: Email: Leighton Sal MD Other Providers Physician Specialty: Medical Address: Phone: Fax: Email: Didi Lee MD Other Providers Physician Specialty: Medical Address: Phone: Fax: Email: Nick Del Valle MD Other Providers Physician Specialty: Medical Address: Phone: Fax: Email: Pedro Lucero DO Emergency Provider Physician Referring Provider Specialty: Emergency Medicine Address: [address] [place] [address] Email: [email or web address] Blas Vargas MD Admit Provider Physician Attending Provider Primary Care Provider Specialty: Internal Medicine Address: [address] [place] [address], [address] [place] [address] Email: [email or web address] Current Diagnoses Acute respiratory failure with hypercapnia (03/27/21) Past Medical History (Last Reviewed 03/29/21 @ 07:50 by Blas Vargas MD) Acquired insufficiency of aortic valve (Medical 10/08/15) Asthma (Medical) Cellulitis (Medical ~02/2020) Chronic obstructive pulmonary disease (Medical 01/19/11) Cobalamin deficiency (Medical) CTS (carpal tunnel syndrome) (Medical) Duodenal ulcer (Medical) Eczema (Medical) Elevated d-dimer (Medical ~02/2020) Essential hypertension (Medical) Former smoker (Medical) Gastric ulcer (Medical) History of arthroplasty of right knee (Medical 05/24/20) History of malignant neoplasm of prostate (Medical) External beam radiation and brachytherapy, [facility] Hypothyroidism (Medical 08/21/14) Idiopathic peripheral neuropathy (Medical) Leukocytosis (Medical 01/19/11) Low back pain of over 3 months duration (Medical 11/15/16) Obesity (Medical 01/19/11) Olecranon bursitis of left elbow (Medical) Osteoarthritis (Medical) Prostate cancer (Medical 2010) 2011 seed implant Status post cataract extraction of both eyes with insertion of intraocular lens (Medical) Status post wrist surgery (Medical 2011) Carpal tunnel, ulnar nerve release Thrombocytosis (Medical 01/19/11) Unilateral primary osteoarthritis, right knee (Medical) Weakness of right lower extremity (Medical 11/15/16) Speech-Language Pathology Swallow Evaluation 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[employer] 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 Clinical Swallow Evaluation Start: 03/29/21 16:17 Freq: Status: Active Protocol: Document 03/29/21 16:17 JANAE (Rec: 03/29/21 16:37 ZS [id number]) Clinical Swallow Evaluation Session Time Visit Start Time 15:40 Visit Stop Time 16:00 Total Visit Minutes 20 Setting Assessment Location Acute Care Visit Type Note Type Initial evaluation Next Note Type Next Note Type Treatment Note Patient Information Identification Type Name,Wristband History 70-year-old male former smoker with a history of severe COPD oxygen dependent hypertension hypothyroidism prostate cancer gastric ulcer and osteoarthritis presents to the emergency department via ambulance with confusion and low oxygenation status. Patient brother came up to visit him about a week ago as he says the patient called him is that he was having increasing difficulty with breathing and more short of breath. He has a diagnosis of COPD and recently had evaluation by his primary care physician which showed severe COPD. Pay recently range for him to have home oxygen he has been having 2 L at home. At times he still been quite weak and short of breath. His brother states that to even with 2 L of oxygen at times his oxygen level has been in the mid to lower 80s. Other than feeling weak and tired. He has had no recent problems with chest pain dizziness lightheadedness. Has a history of smoking. The brother said yesterday he turned his oxygen up to 5 L for few minutes and patient then went to sleep. And then he turned it back down to 2 L of oxygen. Patient was then again evaluated by his brother this morning he is here visiting and he was found to be confused hypoxic somewhat unresponsive. Patient was on the ground. He was hypoxic in the low 80s. He was given oxygen he was then able to stand up on his own get into the gurney however his mental status was fluctuating. Patient is unable to provide any history at the time of evaluation by EMS in the emergency department. Shortly after arrival to the emergency department after emergency room evaluation patient was intubated. Patient then had a workup in the emergency department his workup included EKG which shows low voltage criteria no acute ST or T-wave changes CT scan of his chest which shows no acute pulmonary emboli no pleural effusion no pneumothorax some atelectasis CT scan of his head no acute bleeds and laboratory data showing COVID test negative toxicology screen positive for marijuana urinalysis no signs of significant infection ethyl alcohol. Patient had a sedation vacation he tolerated well and ended up being extubated to BiPAP at 11:30 on 03/29/2021. Patient last on BiPAP for maybe an hour than 1 to talk with his family who is here. It was removed and he has been stable ever since. Subjective Observations Tanner was reclined in bed when clinician arrived. He was awake and alert, though speech was slurred and quiet with a hoarse vocal quality. Hoarse vocal quality is likely due to being intubated recently. Reported by Patient Current Diet Nothing by mouth Baseline Feeding Method Needs some assistance Objective Assessment Mental Status Alert,Responsive,Cooperative Oral Integrity WFL Dentition Within normal limits Lip Function Within normal limits Observation of Lips at Rest Symmetrical Pucker Within normal limits Alternating Pucker/Lip Retraction Incoordination Tongue Function Within normal limits Tongue Protrusion Within normal limits Tongue Lateralization Within normal limits Jaw Function Within normal limits Observations of Jaw at Rest Within normal limits Jaw Opening Within normal limits Hard/Soft Palate Function Within normal limits Observations of Hard/Soft Palate Within normal limits Comment Completed oral motor exam with Tanner. Tanner presented with a large tongue that occupied a large portion of his oral cavity. His large tongue negatively impacted speech and resulted in slurred speech. Tongue strength and ROM were WNL, though Tanner had difficulty following directions during tongue and lip movement tasks. Lip ROM was WNL, though incoordination was present when asked to alternate between smiling and puckering his lips. He required step by step instructions to complete the task. Other than a large tongue, structure and function of oral mechanism appeared WNL for the purposes of speech and swallowing. Tanner's large tongue may be a result of being intubated and appeared to minimally impact swallowing . Food and Liquid Trials Position During Assessment Upright (90 degrees),In bed Liquids Trialed Thin Solids Trialed Puree,Dysphagia Mechanical, Mechanical Soft Administration Type Tea spoon,Straw,Needs some assistance Oral Impairment Within functional limits Oral Phase Comments No anterior loss of bolus, good anterior/posterior propulsion of bolus. Munching motions observed when Tanner ate peaches and pudding with beulah cracker. No oral residue observed on any trials . Tanner reported no difficulty chewing or swallowing. Pharyngeal Impairment Within normal limits Pharyngeal Phase Comments No overt signs or symptoms of aspiration observed across trials. Tanner reported no difficulty swallowing. Cannot rule out silent aspiration without completing a modified barium swallow study. Fatigue/Endurance Moderate fatigue Comment Tanner exhibited fatigue following swallow assessment and would likely experience fatigue while eating a full meal. Recommend not feeding when Tanner is tired, as this may negatively impact his swallow safety. Results Tanner presents with swallowing WFL despite an enlarged tongue. Concerns for impaired swallow safety if Tanner is fed while fatigued. Recommend following up with Tanner regarding swallow safety and evaluation of cognition tomorrow morning as he was recently extubated and may have changes in status as he recovers. Findings Swallowing Function Within functional limits Severity of Swallow Impairment Within functional limits Contributing Factors to Swallow Reduced alertness or attention Impairment ,Difficulty following directions,Reduced oral strength/coordination/ sensation,Mastication inefficiency Prognosis Good Based on Family support,Age, Comorbidities,Duration of symptoms/severity Comment Tanner presents with swallowing WFL despite an enlarged tongue. Concerns for impaired swallow safety if Tanner is fed while fatigued. Recommend following up with Tanner regarding swallow safety and evaluation of cognition tomorrow morning as he was recently extubated and may have changes in status as he recovers. Unable to rule out silent aspiration at this time . Impact on Safety and Functioning Risk for aspiration Recommendations Swallowing Treatment Yes Recommended Solids Dysphagia Mechanical Recommended Liquids Thin Safety Precautions/Swallowing Feed only when alert,Reduce Recommendations distractions,Remain upright ( 90 degrees) during all oral intake,Upright position at least 30 minutes after meals, Small bites and sips when eating,Slow rate; swallow between bites Medication Recommendations Crushed in Carrier Education Patient/Caregiver Education Described results of evaluation,Patient expressed understanding of evaluation, Patient expressed agreement with goals & treatment plans, Family/caregivers expressed understanding of evaluation, Family/caregivers expressed agreement with goals & treatment plans,Patient expressed understanding of safety precautions,Patient expressed understanding of feeding recommendations,Family /caregivers expressed understanding of safety precautions,Family/caregivers expressed understanding of feeding recommendations Goals Long-term Goals Peter will safely tolerate least restrictive diet to meet his nutrition and hydration needs.
--- NOTE | 2021-03-29 20:07 | PM.ICURNDS ---
- Note: Case d/w bedside nurse. Pt extubated ~11am this mornig, on 1.5L O2 w sats ~93%. He is clinically doing well other than some slight confusion. Will check ABG to make sure his pH is normal. May benefit from night time BiPAP.
[2021-03-30] VITALS (34 sets, daily range): BP systolic 107–132; BP diastolic 57–78; PULSE 61–111; RESP 11–32; TEMP 36.5–38.5; O2SAT 88–93
[2021-03-30] MEDS: LEVOTHYROXINE 150 MCG TABLET TUBE (06:11)
[2021-03-30] MEDS: methylPREDNISolone 125 MG/2 ML VIAL 60 MG IV (06:11)
[2021-03-30] MEDS: CHLORHEXIDINE GLUCONATE 15 ML CUP PO (06:11)
[2021-03-30 07:07] LABS: Hematocrit 37.4 % (41-53); Hemoglobin 11.9 g/dL (13.5-17.5); Mean Corpuscular HGB Conc 31.8 % (30-36); Mean Corpuscular Hemoglobin 25.6 PG (26-34); Mean Corpuscular Volume 80.5 fL (80-100); Platelet Count 476 X10^3/uL (150-400); Red Blood Cell Count 4.64 X10^6/uL (4.5-5.9); Red Cell Distribution Width 15.9 % (11.6-14.8); White Blood Cell Count 18.1 X10^3/uL (4.5-11.0)
[2021-03-30 07:10] LABS: Add Manual Diff / Slide Review YES
[2021-03-30 07:14] LABS: BUN Creatinine Ratio 39.5 (6-22); Blood Urea Nitrogen 32 mg/dL (9-20); Calcium 8.6 mg/dL (8.4-10.2); Chloride 97 mmol/L (98-107); Estimated Glomerular Filt Rate > 60.0 mL/min (>60); Glucose 133 mg/dL (80-110); HEMOLYSIS < 15 (0-50); Magnesium 2.2 mg/dL (1.6-2.3); Potassium 4.6 mmol/L (3.4-5.1); Sodium 138 mmol/L (137-145)
[2021-03-30] MEDS: ALBUTEROL/IPRATROPIUM 3 ML AMPUL INH ×3 (07:16→19:45)
[2021-03-30 07:27] LABS: Carbon Dioxide 43 mmol/L (22-32)
--- NOTE | 2021-03-30 08:26 | P.PN_ITS ---
Subjective Subjective Date Patient Seen: 03/30/21 Time Patient Seen: 08:26 Interval history: Patient was extubated yesterday warning periods done well ever since. Some initial confusion but that seems to be clearing. Still not quite at baseline in per my evaluation but very very close Really has no recollection of what happened Has a bunch of appropriate questions Was initially on BiPAP now off of everything on minimal oxygen at 0.5 L nasal cannula Exam Vital Signs (past 8 hours): - 03/30/21 01:00 03/30/21 02:00 03/30/21 02:01 Temperature 97.7 F 97.9 F 97.9 F Pulse Rate 64 62 61 Respiratory Rate 12 11 L 11 L Blood Pressure 107/57 L 132/64 Pulse Oximetry 91 93 93 03/30/21 03:00 03/30/21 03:01 03/30/21 04:00 Temperature 98.1 F 98.1 F 98.4 F Pulse Rate 69 69 79 Respiratory Rate 17 17 29 H Blood Pressure 124/62 124/60 Pulse Oximetry 90 L 90 L 91 03/30/21 04:12 03/30/21 04:25 03/30/21 05:00 Temperature 98.4 F 98.2 F 98.6 F Pulse Rate 74 70 75 Respiratory Rate 20 21 14 Blood Pressure 117/57 L 117/57 L 124/63 Pulse Oximetry 92 92 90 L 03/30/21 06:00 03/30/21 07:00 03/30/21 07:17 Temperature 99.0 F 99.0 F Pulse Rate 80 92 H Respiratory Rate 16 23 Blood Pressure 126/71 Pulse Oximetry 90 L 90 L 92 03/30/21 08:00 03/30/21 08:04 Temperature 99.1 F 99.1 F Pulse Rate 84 85 Respiratory Rate 31 H 29 H Blood Pressure 130/71 Pulse Oximetry 89 L 89 L Fraction of Inspired Oxygen 35 Oxygen Delivery Method Nasal Cannula Oxygen Flow Rate 1 Narrative Exam Narrative: HEENT-unremarkable, normocephalic atraumatic Neck-no lymphadenopathy no bruits Lungs-diminished breath sounds throughout no wheezes Heart-regular rate and rhythm, no murmur, rub, or gallop. normal S1-S2 Abdomen-positive bowel tones, soft, nontender, nondistended, no hepatosplenomegaly, no masses palpable Neuro-normal to screening exam, gait not tested Extremities-no cyanosis clubbing or edema Objective Labs Result Diagrams: 03/30/21 06:30 03/30/21 06:30 Labs: Laboratory Results - last 24 hr 03/27/21 03/27/21 03/29/21 10:16 12:27 11:15 WBC RBC Hgb Hct MCV MCH MCHC RDW Plt Count Neut % (Auto) Lymph % (Auto) Davidson % (Auto) Eos % (Auto) Baso % (Auto) Lymph # (Auto) Davidson # (Auto) Baso # (Auto) ABG pH 7.29 L* 7.45 ABG pCO2 89.7 H* 53.2 H ABG pO2 25 L* 59 L ABG HCO3 43 H 37 H ABG Total CO2 46 H 39 H ABG O2 Saturation 34 L* 91 L ABG Base Excess 17.0 H 13.0 H FiO2 80 80 40 Sodium Potassium Chloride Carbon Dioxide BUN Creatinine Estimated GFR BUN/Creatinine Ratio Glucose Calcium Magnesium 03/30/21 03/30/21 06:30 06:30 WBC 18.1 H RBC 4.64 Hgb 11.9 L Hct 37.4 L MCV 80.5 MCH 25.6 L MCHC 31.8 RDW 15.9 H Plt Count 476 H Neut % (Auto) Not Reportable Lymph % (Auto) Not Reportable Davidson % (Auto) Not Reportable Eos % (Auto) Not Reportable Baso % (Auto) Not Reportable Lymph # (Auto) Not Reportable Davidson # (Auto) Not Reportable Baso # (Auto) Not Reportable ABG pH ABG pCO2 ABG pO2 ABG HCO3 ABG Total CO2 ABG O2 Saturation ABG Base Excess FiO2 Sodium 138 Potassium 4.6 Chloride 97 L Carbon Dioxide 43 H* BUN 32 H Creatinine 0.81 Estimated GFR > 60.0 BUN/Creatinine Ratio 39.5 H Glucose 133 H Calcium 8.6 Magnesium 2.2 [facility] Medical History Acquired insufficiency of aortic valve (10/08/15) Asthma Cellulitis (~02/2020) Chronic obstructive pulmonary disease (01/19/11) Cobalamin deficiency CTS (carpal tunnel syndrome) Duodenal ulcer Eczema Elevated d-dimer (~02/2020) Essential hypertension Former smoker Gastric ulcer History of malignant neoplasm of prostate Hypothyroidism (05/15/15) Idiopathic peripheral neuropathy Leukocytosis (01/19/11) Low back pain of over 3 months duration (11/15/16) Obesity (01/19/11) Olecranon bursitis of left elbow Osteoarthritis Prostate cancer (2010) Thrombocytosis (01/19/11) Unilateral primary osteoarthritis, right knee Weakness of right lower extremity (11/15/16) Surgical History History of arthroplasty of right knee (05/24/20) History of spinal fusion (2012) History of splenectomy (1975) Status post cataract extraction of both eyes with insertion of intraocular lens Status post wrist surgery (2011) Family History Brother Thyroid cancer Mother Breast cancer Father No problems noted. 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 Respiratory-much improved now off the ventilator. Continue with treatment for his COPD. Continue with IV steroids although the lower dose. I am going to add back some ipratropium albuterol nebulizers as well as ongoing albuterol nebulizers. No evidence of infection he has been afebrile I am going to discontinue his IV antibiotics. Sputum culture was negative when last obtained via the ET tube 2. Neuro-patient remains somewhat confused. ABG done demonstrates probably baseline pCO2 and pH. I do not believe any remaining confusion is anything to do with his respiratory status. Likely related to his illness is ICU status and perhaps some of the medications which he may still be metabolizing. Is improving frankly and not overly concerned at this point. 3. GI-patient with a history duodenal and gastric ulcer with GI bleeding and recently been intubated on a ventilator. Continue with proton pump inhibitor for now continue with that IV but probably switch it to oral tomorrow 4. Disposition-unclear whether patient be able to return home. Patient is to be seen by skilled therapies up in about a evaluated both his respiratory status with activity as well as his overall status. Mental status is improving which is going to be helpful in effort to discharge him. Patient not yet ready for discharge but perhaps in the next 48 hours sometime at the earliest 5. Cardiac-echocardiogram performed on the but no result available as yet in the [facility] system or in PACs. Will have to run that down but patient shows no evidence clinically of any cardiac issues at this point. Note: Greater than 30 minutes total time was spent on day of service, evaluating the patient on the floor, including examining the patient, discussing clinical course with clinical and nursing staff, reviewing clinical course in the computer, preparing documentation and writing orders for continued management of care, discussing status with family as appropriate, reviewing plans for the next 24 hours with both patient/family and nursing staff as appropriate. Quality VTE Deep Vein Thrombosis/Pulmonary Embolism Present on Admission: No
[2021-03-30 08:34] LABS: Hypochromasia 2+; Neutrophils Absolute Manual 16652 /uL (3000-5900); Total Cells Counted 100
[2021-03-30 08:35] LABS: Target Cells 2+
[2021-03-30] MEDS: DULOXETINE 20 MG CAPSULE PO (08:52)
[2021-03-30] MEDS: TAMSULOSIN 0.4 MG CAPSULE PO (08:53)
[2021-03-30] MEDS: ENOXAPARIN 40 MG/0.4 ML SYRINGE SUBCUT ×2 (08:53→20:24)
[2021-03-30] MEDS: PANTOPRAZOLE 40 MG VIAL IV (08:54)
--- NOTE | 2021-03-30 09:42 | P.TELICUPN_ITS ---
Subjective Subjective :: This patient was seen via real time interactive two-way audiovisual telecommunication. no acute events overnight Current Medications Current Medications Medications: Home Medications cyanocobalamin (vitamin B-12) 1,000 mcg tablet,extended release 1,000 mcg PO QDAY #0 04/04/17 [History Confirmed 03/27/21] diphenhydramine HCl 25 mg capsule (Allergy (diphenhydramine)) 25 mg PO Q4-6H PRN 09/14/17 [History Confirmed 03/27/21] ciclesonide 160 mcg/actuation aerosol inhaler (Alvesco) 2 puff INHALATION BID #6.1 gram 01/14/20 [Rx Confirmed 03/27/21] fluticasone propionate 50 mcg/actuation nasal spray,suspension 2 spray NASAL BEDTIME PRN 02/19/20 [History Confirmed 03/27/21] ipratropium 20 mcg-albuterol 100 mcg/actuation mist for inhalation (Combivent Respimat) 1 puff INHALATION BID 02/19/20 [History Confirmed 03/27/21] duloxetine 30 mg capsule,delayed release 30 mg PO DAILY #90 cap 05/31/20 [Rx Confirmed 03/27/21] omeprazole 40 mg capsule,delayed release 40 mg PO BID #60 cap 05/31/20 [Rx Confirmed 03/27/21] potassium chloride 20 mEq tablet,extended release(part/cryst) (Klor-Con M) 20 meq PO DAILY #30 tab 05/31/20 [Rx Confirmed 03/27/21] levothyroxine 150 mcg tablet See Rx Instructions .ROUTE .COMPLEX #90 tab 06/07/20 [Rx Confirmed 03/27/21] chlorthalidone 25 mg tablet 50 mg PO QDAY #180 tab 06/16/20 [Rx Confirmed 03/27/21] acetaminophen 325 mg tablet 650 mg PO TID #60 tab 08/31/20 [Rx Confirmed 03/27/21] aspirin 81 mg tablet,delayed release 81 mg PO BID #60 tab 08/31/20 [Rx Confirmed 03/27/21] ibuprofen 400 mg tablet 400 mg PO Q4HR #60 tab 08/31/20 [Rx Confirmed 03/27/21] tamsulosin 0.4 mg capsule (Flomax) 0.4 mg PO DAILY #5 cap 08/31/20 [Rx Confirmed 03/27/21] albuterol sulfate 90 mcg/actuation aerosol inhaler (Proventil HFA) 2 puff INHALATION Q4HP PRN #2 device 03/07/21 [Rx Confirmed 03/27/21] triamcinolone acetonide 0.1 % topical cream 1 applic TOPICAL TID #80 g 03/21/21 [Rx Confirmed 03/27/21] Visit Medications (administered) Generic Name Dose Route Start Last Admin Trade Name Freq PRN Reason Stop Dose Admin Acetaminophen 650 mg 03/27/21 20:18 03/28/21 01:35 Acetaminophen 325 Mg Tablet PO 650 mg Q6HR PRN Administration Fever/Mild Pain (1-3) Albuterol 2.5 mg 03/27/21 15:00 03/27/21 17:34 Albuterol 2.5 Mg/3 Ml Neb (Adult) INH 2.5 mg RTQ6HR PRN Administration Shortness Of Breath Albuterol/Ipratropium 3 ml 03/27/21 15:00 03/30/21 07:16 Albuterol/Ipratropium 3 Ml Ampul INH 3 ml RTQ4HR MANAN Administration Duloxetine HCl 20 mg 03/30/21 09:00 03/30/21 08:52 Duloxetine 20 Mg Capsule PO 20 mg DAILY MANAN Administration Enoxaparin Sodium 40 mg 03/28/21 21:00 03/30/21 08:53 Enoxaparin 40 Mg/0.4 Ml Syringe SUBCUT 40 mg BID MANAN Administration Lorazepam 2 mg 03/27/21 23:42 03/28/21 00:10 Lorazepam 2 Mg/Ml Inj IV 2 mg Q3H PRN Administration Sedation Methylprednisolone 60 mg 03/30/21 08:30 03/30/21 08:52 Methylprednisolone 125 Mg/2 Ml Vial IV Not Given Q12H MANAN Pantoprazole Sodium 40 mg 03/27/21 14:54 03/30/21 08:54 Pantoprazole 40 Mg Vial IV 40 mg DAILY MANAN Administration Tamsulosin HCl 0.4 mg 03/30/21 09:00 03/30/21 08:53 Tamsulosin 0.4 Mg Capsule PO 0.4 mg DAILY MANAN Administration Objective Ventilator Parameters: Ventilator Settings FiO2 40 RT Vent Frequency 10 Ventilator Tidal Volume 350 Exhaled Positive End Expiratory 5 Pressure Inspiratory Phase Time 0.9 I:E Ratio 1:5.6 Patient Position HOB >= 30 degrees Labs Result Diagrams: 03/30/21 06:30 03/30/21 06:30 Labs: Laboratory Results - last 24 hr 03/27/21 03/27/21 03/29/21 10:16 12:27 11:15 WBC RBC Hgb Hct MCV MCH MCHC RDW Plt Count Neut % (Auto) Lymph % (Auto) [place] % (Auto) Eos % (Auto) Baso % (Auto) Lymph # (Auto) [place] # (Auto) Baso # (Auto) Total Counted Seg Neutrophils % Band Neutrophils % Lymphocytes % (Manual) Monocytes % (Manual) Neutrophils # (Manual) RBC Morphology Hypochromasia Target Cells ABG pH 7.29 L* 7.45 ABG pCO2 89.7 H* 53.2 H ABG pO2 25 L* 59 L ABG HCO3 43 H 37 H ABG Total CO2 46 H 39 H ABG O2 Saturation 34 L* 91 L ABG Base Excess 17.0 H 13.0 H FiO2 80 80 40 Sodium Potassium Chloride Carbon Dioxide BUN Creatinine Estimated GFR BUN/Creatinine Ratio Glucose Calcium Magnesium 03/30/21 03/30/21 06:30 06:30 WBC 18.1 H RBC 4.64 Hgb 11.9 L Hct 37.4 L MCV 80.5 MCH 25.6 L MCHC 31.8 RDW 15.9 H Plt Count 476 H Neut % (Auto) Not Reportable Lymph % (Auto) Not Reportable [place] % (Auto) Not Reportable Eos % (Auto) Not Reportable Baso % (Auto) Not Reportable Lymph # (Auto) Not Reportable [place] # (Auto) Not Reportable Baso # (Auto) Not Reportable Total Counted 100 Seg Neutrophils % 88.0 H Band Neutrophils % 4.0 Lymphocytes % (Manual) 3.0 L Monocytes % (Manual) 5.0 Neutrophils # (Manual) 06221 H RBC Morphology Not Reportable Hypochromasia 2+ H Target Cells 2+ H ABG pH ABG pCO2 ABG pO2 ABG HCO3 ABG Total CO2 ABG O2 Saturation ABG Base Excess FiO2 Sodium 138 Potassium 4.6 Chloride 97 L Carbon Dioxide 43 H* BUN 32 H Creatinine 0.81 Estimated GFR > 60.0 BUN/Creatinine Ratio 39.5 H Glucose 133 H Calcium 8.6 Magnesium 2.2 Exam Vital Signs (past 8 hours): - 03/30/21 02:00 03/30/21 02:01 03/30/21 03:00 Temperature 97.9 F 97.9 F 98.1 F Pulse Rate 62 61 69 Respiratory Rate 11 L 11 L 17 Blood Pressure 132/64 Pulse Oximetry 93 93 90 L 03/30/21 03:01 03/30/21 04:00 03/30/21 04:12 Temperature 98.1 F 98.4 F 98.4 F Pulse Rate 69 79 74 Respiratory Rate 17 29 H 20 Blood Pressure 124/62 124/60 117/57 L Pulse Oximetry 90 L 91 92 03/30/21 04:25 03/30/21 05:00 03/30/21 06:00 Temperature 98.2 F 98.6 F 99.0 F Pulse Rate 70 75 80 Respiratory Rate 21 14 16 Blood Pressure 117/57 L 124/63 126/71 Pulse Oximetry 92 90 L 90 L 03/30/21 07:00 03/30/21 07:17 03/30/21 08:00 Temperature 99.0 F 99.1 F Pulse Rate 92 H 84 Respiratory Rate 23 31 H Blood Pressure Pulse Oximetry 90 L 92 89 L 03/30/21 08:04 03/30/21 09:00 03/30/21 09:01 Temperature 99.1 F 99.5 F 99.5 F Pulse Rate 85 97 H 97 H Respiratory Rate 29 H 25 H 22 Blood Pressure 130/71 118/78 Pulse Oximetry 89 L 88 L 88 L Fraction of Inspired Oxygen 35 Oxygen Delivery Method Nasal Cannula Oxygen Flow Rate 1 Quality TeleICU VTE Deep Vein Thrombosis/Pulmonary Embolism Present on Admission: No Assessment & Plan Assessment & Plan narrative: patient seen and examined with bedside nurse chart/labs/imaging reviewed aferbrile, HD stable, on NC Acute on chronic resp failure with hypercapenia metabolic alkaosis acute metabolic encephalpahty morbid obesity possible compnent of OHS on his COPD - on home o2 HTN hypothyroidism hld plan -successfully extubated yesterday doing well today -cont to keep sat between 88-92% -consider PFTs/sleep study as outpatient -dc abx unlikely pna as cxs -ve - decrease nebs -dc solumedrol -start prendiosne 40mg daily for 3 days then can stop -avoid ivf -gi/dvt ppx -keep glucose 140-180s -ok to downgrade -please call Tele ICU if condition changes Time Spent With Patient Critical Care time: I spent a total of [] minutes of critical care time on this patient's care today ; this time is exclusive of procedural time.
[2021-03-30] MEDS: predniSONE 20 MG TABLET 40 MG PO (10:30)
--- NOTE | 2021-03-30 10:53 | ST.IPDYTX ---
Visit Care Team Role Provider Type Kael Sahni MD Other Providers Physician Specialty: Medical Address: Phone: Fax: Email: Christin Mejia MD Other Providers Physician Specialty: Medical Address: Phone: Fax: Email: Laina Sal MD Other Providers Physician Specialty: Medical Address: Phone: Fax: Email: Orville Ramos MD Other Providers Physician Specialty: Medical Address: Phone: Fax: Email: Charlette Neff MD Other Providers Physician Specialty: Internal Medicine Address: Phone: Fax: Email: Pedro Azul MD Other Providers Physician Specialty: Medical Address: Phone: Fax: Email: Raphael Pemberton MD Other Providers Physician Specialty: Internal Medicine Address: Phone: Fax: Email: Manohar Soto MD Other Providers Physician Specialty: Medical Address: Phone: Fax: Email: Leighton Sal MD Other Providers Physician Specialty: Medical Address: Phone: Fax: Email: Didi Lee MD Other Providers Physician Specialty: Medical Address: Phone: Fax: Email: Nick Del Valle MD Other Providers Physician Specialty: Medical Address: Phone: Fax: Email: Pedro Lucero DO Emergency Provider Physician Referring Provider Specialty: Emergency Medicine Address: [address] [place] [address] Email: [email or web address] Blas Vargas MD Admit Provider Physician Attending Provider Primary Care Provider Specialty: Internal Medicine Address: [address] [place] [address], [place] [address] Email: [email or web address] [place] [facility] [place] [facility] Start: 03/30/21 10:35 Freq: Status: Active Protocol: Document 03/30/21 10:35 LNK (Rec: 03/30/21 10:50 LNK [id number]) Dysphagia Treatment Session Time Visit Start Time 01:00 Visit Stop Time 10:20 Total Visit Minutes 20 Setting Assessment Location Acute Care Visit Type Note Type Re-Evaluation Patient Information Identification Type Name,ID Wristband Subjective Observations Pt was up in bed finishing breakfast. Son at bedside. Treatment Liquids Trialed Thin Solids Trialed Regular Administration Type Tea Spoon,Straw,Self-Feeding Oral Strategies Upright at 90 degrees Pharyngeal Strategies Sitting Upright (90 deg) Treatment Activities Pt was finishing breakfast. Asked him if he would like a sandwich and he requested soup . Pt safely ate vegetable soup (mixed textures) and crackers without s/sx aspiration. No cough/choking, no wet voicing, clear voice following trials. Thin liquids safely tolerated. Will advance texture to regular. Assessment Patient Response to Treatment Excellent Assessment of Improvement Pt has made excellent improvement in swallowing safely. Will follow 1-2x more for s/sx aspiration/safety with diet. Diet Recommendations Recommendations Upgrade Diet Order Liquids Order Thin Diet Order Regular Medication Recommendations As Tolerated Aspiration Precautions Recommended Precautions Upright at 90 Degrees,Small Bites/Sips,Lingual Sweep Treatment Plan Placement Recommendation after Discharge [facility] Facility,Home with Home Health Appropriate for Continued Therapy Yes: Monitor for sx/s aspiration Dysphagia Goals Pt will safely tolerate the least restrictive diet without s/sx aspiration to meet hydration and nutritional needs.
--- NOTE | 2021-03-30 11:20 | OT.IP.EVAL ---
Current Diagnoses Acute respiratory failure with hypercapnia (03/27/21) Past Medical History (Last Reviewed 03/29/21 @ 07:50 by Blas Vargas MD) Acquired insufficiency of aortic valve (10/08/15) Asthma Cellulitis (~02/2020) Chronic obstructive pulmonary disease (01/19/11) Cobalamin deficiency CTS (carpal tunnel syndrome) Duodenal ulcer Eczema Elevated d-dimer (~02/2020) Essential hypertension Former smoker Gastric ulcer History of arthroplasty of right knee (05/24/20) History of malignant neoplasm of prostate Hypothyroidism (08/21/14) Idiopathic peripheral neuropathy Leukocytosis (01/19/11) Low back pain of over 3 months duration (11/15/16) Obesity (01/19/11) Olecranon bursitis of left elbow Osteoarthritis Prostate cancer (2010) Status post cataract extraction of both eyes with insertion of intraocular lens Status post wrist surgery (2011) Thrombocytosis (01/19/11) Unilateral primary osteoarthritis, right knee Weakness of right lower extremity (11/15/16) Surgical History (Last Reviewed 03/29/21 @ 07:50 by Blas Vargas MD) History of arthroplasty of right knee (05/24/20) History of spinal fusion (2012) History of splenectomy (1975) Status post cataract extraction of both eyes with insertion of intraocular lens Status post wrist surgery (2011) Occupational Therapy Inpatient Evaluation/Re-Eval M1 PT/OT-IP Prior Functional Status Start: 03/30/21 12:29 Freq: NEEDED Status: Active Protocol: Document 03/30/21 12:50 [facility] (Rec: 03/30/21 13:03 [facility] [id number]) Medical Review Prior Functional Status Medical History Reviewed Yes Communication able to make needs known Mobility and Gait pt stated that he is modified independent with all mobilities and ambulation without AD indoors but occasionally uses a SPC; stated that he takes his SPC for outdoor ambulation but just carries it with him and not really needing to use it Activities of Daily Living and IADL's Pt states was completely independent with all his ADL, IADl, and drives. Social History Household Members none Living Arrangements House Number of Floors (Floors) Two Floors Number of Stairs To Enter/Railing? pt can stay on main level of the house if needed 2 steps R rail to enter the house 2 flight of steps to get to 2nd level of the house ( bedroom level) with r rail on first flight and B rails on 2nd Home Environment Standard Height Toilet,Tub/ Shower Home Equipment Straight Cane,Shower Seat without Backrest,Hand Held Shower Additional Social History Comment Pt states that his brother will be able to stay with him initially to assist with his needs. M2 OT-IP Current Condition Start: 03/30/21 12:48 Freq: Status: Active Protocol: Document 03/30/21 12:50 [facility] (Rec: 03/30/21 13:03 [facility] [id number]) Occupational Therapy Current Condition Current Condition Evaluation Date 03/30/21 Treatment Diagnosis COPD exacerbation, decreased mobility Diagnosis Onset Date 03/27/21 M3 OT- IP Subjective and Pain Start: 03/30/21 12:48 Freq: Status: Active Protocol: Document 03/30/21 12:50 [facility] (Rec: 03/30/21 13:03 [facility] [id number]) OT- Subjective Occupational Therapy Visit Type Type Initial Evaluation Visit Start Time 10:43 Visit Stop Time 11:20 Total Visit Minutes 37 Occupational Therapy Visit Comments Patient Comments Pt wanting to use the commode. Patient/Caregiver Goals To go home. OT Pain Assessment Pain When Pain Assessed At Rest Pain Present Pain Present Denied Pain M4 OT- IP ADL's Start: 03/30/21 12:48 Freq: Status: Active Protocol: Document 03/30/21 12:50 [facility] (Rec: 03/30/21 13:03 [facility] [id number]) OT [id number] Comments OT Self-Feeding Comments Per SAMPLE COORDINATOR diet upgraded to regular,thin. OT ADL-Grooming Comments OT Grooming Comments Pt able to wash his face after set-up. OT ADL-Oral Care General Eval Oral Care Ability Independent Comments Oral Care Comments Able to do while seated in the recliner. OT ADL-Dressing General Eval Lower Body Dressing Ability Moderate Assistance Comments OT Dressing Comments Pt able to doff his socks but needing assist to teofilo them. OT ADL-Toileting General Evaluation Toileting Ability Moderate Assistance Areas Needing Assistance Perform Perineal Hygiene Comments OT Toileting Comments Prior pt states has difficulty to wipe and nurse able to assist pt while therapist stood with the pt with FWW. OT ADL-Bathing Comments OT Bathing Comments Pt too tired to attempt to shower and at this time sponge bath is more appropriate. M5 OT- IP IADL's Start: 03/30/21 12:48 Freq: Status: Active Protocol: Document 03/30/21 12:50 [facility] (Rec: 03/30/21 13:03 [facility] [id number]) OT-Instrumental Activities of Daily Living Home Safety Awareness Awareness of Need for Assistance at Home Good Awareness Ability to Problem Solve Emergency Able to Problem Solve Situations Home Safety Comments Pt has a supportive brother who will be home to assist pt initially. At this time pt is a bit groggy and needing vc for completeness and sequence through tasks. M6 OT- IP Functional Cognition Start: 03/30/21 12:48 Freq: Status: Active Protocol: Document 03/30/21 12:50 [facility] (Rec: 03/30/21 13:03 [facility] [id number]) Cognitive Factors Limiting Selfcare Function Cognitive Ability Level of Alertness Alert,Drowsy Patient Orientation Name Attention Span Ability Capable of Focused Attention, Capable of Sustained Attention Ability to Follow Commands Able to Follow One Step Commands with Increased Time, Able to Follow One Step Commands with Repetition Cognitive Comments Cognitive Assessment Comments Pt a bit groggy. To do a formal cognitive assessment tomorrow with the pt. Pt needing step by step to follow for ADL and mobility needs. Pt forgetting that he had a catheter. Had to cue pt to try to use the commode as he was sitting on it for a bowel movement. OT- Vision and Hearing OT- Hearing Assessment OT- Hearing Assessment WFL OT- Vision Assessment Visual Acuity Glasses All The Time M7 OT- IP Mobility and Balance Start: 03/30/21 12:48 Freq: Status: Active Protocol: Document 03/30/21 12:50 [facility] (Rec: 03/30/21 13:03 [facility] [id number]) OT- Bed Mobility Assessment Rolling Type of Rolling Roll to Right Level of Assistance Minimal Assistance,1 Person Assistance,Bedrails Supine to Sit Supine to Sit Assist Minimal Assistance OT-Transfer Assessment Sit to and From Stand Sit to and from Stand Moderate Assistance Transfers Transfer Ability Moderate Assistance,1 Person Assistance Technique Transfer Destination Bed,Bedside Commode,Chair Transfer Technique Stand Step Pivot Devices Transfer Assistive Devices Gait Belt,Front Wheeled Walker Comments Mobility Comments Heavy use of bed rail to help get out of bed. MODA X 1 for balance and assist to help steady the FWW during transfer . OT- Balance Assessment Sitting Balance and Reactions Static Sitting Balance Ability Good Dynamic Sitting Balance Ability Fair Standing Balance and Reactions Static Standing Balance Ability Poor Dynamic Standing Balance Ability Poor M8 OT- IP Objective Assessments Start: 03/30/21 12:48 Freq: Status: Active Protocol: Document 03/30/21 12:50 [facility] (Rec: 03/30/21 13:03 [facility] [id number]) OT Strength Comments Strength Comments Pt at least 3-/5, not able to formally assess. OT-Muscle Tone Assessment Muscle Tone WNL Yes M9 OT- IP Assessment and Plan Start: 03/30/21 12:48 Freq: Status: Active Protocol: Document 03/30/21 12:50 [facility] (Rec: 03/30/21 13:03 [facility] [id number]) OT Summary Assessment and Plan Potential Rehabilitation Potential Good Analytic Complexity at Evaluation Moderate Summary OT Impairments Strength,Balance,Functional Cognition,Functional Mobility, Grooming,Dressing,Toileting, Bathing,Toilet Transfers, Shower Transfers,Activity Tolerance Progress Towards Goals Slow Progress due to Medical Issues,Slow Progress due to Activity Tolerance,Slow Progress due to Cognition Assessment Summary Pt MOD complexity and main barriers are steps, decreased activity tolerance and on 1L on O2 and from 82-89% during activity and pt also complaining of being SOB. Pt now needing assist for dressing needs and mobility. Pt would benefit from skilled rehab versus home with 24/7 assist and home health pending his progress. Goals Self-Feeding Goal Independent Grooming Goal Independent Dressing Goal Independent Toileting Goal Independent Bathing Goal Independent Toilet Transfer Goal Independent Shower Transfer Goal Independent Patient/Caregiver Education Goal Demonstrate Energy Conservation and Pacing Days to Meet Goals 15 Frequency of Treatment Frequency Of Treatment Once a Day Treatment Plan OT Treatment Plan ADL Training,Functional Cognition Training,Functional Mobility,Patient/Family Education,Discharge Planning Other Treatment Recommendations and Next Stand at sink for ADL needs, Treatment Focus SLUMS Discharge Recommendations OT Discharge Recommendations Home with 24/7 Assist Available,Home Health,SNF Rehab Transportation Needs at Discharge Private Vehicle,Wheelchair/ Cabulance
--- NOTE | 2021-03-30 11:30 | PT.IIE ---
Current Diagnoses Acute respiratory failure with hypercapnia (03/27/21) Surgical History (Last Reviewed 03/29/21 @ 07:50 by Blas Vargas MD) History of spinal fusion (2012) History of splenectomy (1975) Medical History (Last Reviewed 03/29/21 @ 07:50 by Blas Vargas MD) Acquired insufficiency of aortic valve (10/08/15) Asthma Cellulitis (~02/2020) Chronic obstructive pulmonary disease (01/19/11) Cobalamin deficiency CTS (carpal tunnel syndrome) Duodenal ulcer Eczema Elevated d-dimer (~02/2020) Essential hypertension Former smoker Gastric ulcer History of malignant neoplasm of prostate Hypothyroidism (08/21/14) Idiopathic peripheral neuropathy Leukocytosis (01/19/11) Low back pain of over 3 months duration (11/15/16) Obesity (01/19/11) Olecranon bursitis of left elbow Osteoarthritis Prostate cancer (2010) Thrombocytosis (01/19/11) Unilateral primary osteoarthritis, right knee Weakness of right lower extremity (11/15/16) Physical Therapy Inpatient Evaluation/Re-Eval M1 PT/OT-IP Prior Functional Status Start: 03/30/21 12:29 Freq: NEEDED Status: Active Protocol: Document 03/30/21 11:30 AB (Rec: 03/30/21 12:43 AB [id number]) Medical Review Prior Functional Status Medical History Reviewed Yes Communication able to make needs known Mobility and Gait pt stated that he is modified independent with all mobilities and ambulation without AD indoors but occasionally uses a SPC; stated that he takes his SPC for outdoor ambulation but just carries it with him and not really needing to use it Social History Household Members none Living Arrangements House Number of Floors (Floors) Two Floors Number of Stairs To Enter/Railing? pt can stay on main level of the house if needed 2 steps R rail to enter the house 2 flight of steps to get to 2nd level of the house ( bedroom level) with r rail on first flight and B rails on 2nd Home Environment Standard Height Toilet,Tub/ Shower Home Equipment Straight Cane,Shower Seat without Backrest,Hand Held Shower M2 PT-IP Current Condition Start: 03/30/21 12:29 Freq: NEEDED Status: Active Protocol: Document 03/30/21 11:30 AB (Rec: 03/30/21 12:43 AB [email or web address]) Physical Therapy Current Condition Current Condition Evaluation Date 03/30/21 Treatment Diagnosis COPD exacerbation; difficulty in walking Onset Date 03/27/21 M3 PT-IP Subjective Start: 03/30/21 12:29 Freq: NEEDED Status: Active Protocol: Document 03/30/21 11:30 AB (Rec: 03/30/21 12:43 AB [email or web address]) Subjective Physical Therapy Visit Type Type Initial Evaluation Visit Start Time 11:30 Visit Stop Time 12:15 Total Visit Minutes 45 Number of NUTRITIONAL SERVICES DIRECTOR Visits 0 Physical Therapy Visit Comments Patient Comments agreeable to do PT Therapy Pain Assessment Pain Present Pain Present Denied Pain M4 PT-IP Mobility and Gait Start: 03/30/21 12:29 Freq: NEEDED Status: Active Protocol: Document 03/30/21 11:30 AB (Rec: 03/30/21 12:43 AB [email or web address]) PT-Bed Mobility Assessment Supine to Sit Supine to Sit Standby Assistance Sit to Supine Sit to Supine Standby Assistance PT-Transfer Assessment Sit to and From Stand Sit to and from Stand Minimal Assistance,1 Person Assistance Equipment Transfer Assistive Device Gait Belt,Front Wheeled Walker Orthotic/Prosthetic Devices or Brace: No Transfers Transfer Destination Bed,Chair Transfer Technique Stand Step Pivot Transfer Ability Level of Assist Contact Guard Assistance, Minimal Assistance,1 Person Assistance,Use of Upper Extremities Comments Mobility Comments pt sitting on chair and agreed to do PT. O2 sat with 1L O2 on at rest: 89-91%. BP: 122/ 73. completed sit to stand min A and ambulated using fWW min A ~ 4 ft forwards and step backwards (limited due to tube attachments). pt sat on chair and rested. (+) SOB and cued for PLB. O2 sat decreased to 87% with mobility . O2 sat increased to 88-89% with rest and PLB. completed sit to stand from chair min A and completed step transfer to bed using FWW CGA to min A and cues. completed sit <>supine SBA. rest breaks in between tasks. agreed to get up to the chair again. completed sit to stand CGA and step transfer to chair using fWW min A and cues. positioned pt on chair. call light and table placed within reach. Gait Assessment Gait Gait Assistance Required: Minimum Assistance,1 Person Assist Distance (Feet) 8 Able to Maintain Weight Bearing Status Yes During Gait Assistive Devices Assistive Device Gait Belt,Front Wheeled Walker Orthotic/Prosthetic Devices or Brace: No Gait Deviations General Gait Pattern Decreased Stride Length, Decreased Feet Clearance Factors Limiting Gait Function Factors Limiting Gait Function Decreased Activity Tolerance, Decreased Strength,Poor Balance,Poor Safety Awareness, Respiratory Distress PT-Balance Assessment Sitting Balance and Reactions Static Sitting Balance Ability Good Dynamic Sitting Balance Ability Good Standing Balance and Reactions Static Standing Balance Ability Fair Dynamic Standing Balance Ability Fair Device Used FWW M5 PT-IP Objective Assessments Start: 03/30/21 12:29 Freq: NEEDED Status: Active Protocol: Document 03/30/21 11:30 AB (Rec: 03/30/21 12:43 AB [email or web address]) Orientation Orientation/Cognition Level of Alertness Alert Orientation Name Language Function Ability No Deficits Noted Safety Awareness Decreased Safety Awareness Gross Range of Motion Lower Extremity ROM Assessment Within Functional Limits Strength Lower Extremity Strength Assessment Within Functional Limits Sensation Assessment Sensation Gross Sensation WNL Muscle Tone Muscle Tone WNL Yes M6 PT-IP Treatment Start: 03/30/21 12:29 Freq: NEEDED Status: Active Protocol: Document 03/30/21 11:30 AB (Rec: 03/30/21 12:43 AB [email or web address]) Physical Therapy Treatment Education Education Provided Safety M7 PT-IP Assessment and Plan Start: 03/30/21 12:29 Freq: NEEDED Status: Active Protocol: Document 03/30/21 11:30 AB (Rec: 03/30/21 12:43 AB [email or web address]) PT Summary Assessment and Plan Potential Rehabilitation Potential Good Status of Condition at Evaluation Evolving Summary Impairments Pain,ROM,Strength,Balance, Coordination,Sensation,Tone, Cognition,Bed Mobility, Transfers,Gait,Activity Tolerance Assessment Summary pt requiring CGA to min A with mobility but unable to tolerate much activity with decrease o2 sat to ~ 87% with ~ 8 ft of ambulation. pt lives alone and needs to be more independent than current level. will assess further for safe d/c plan but pt may require SNF rehab at this time for overall strengthening and improving activity tolerance. Goals Bed Mobility Goal Independent Transfer Goal Independent,Front Wheeled Walker Gait Goal Independent,Front Wheel Walker Gait Distance 200 Other Goals improve ambulation without AD/ SPC SBA 150 ft up/down 2 steps R rail ascending SBA Days to Meet Goals 10 Frequency of Treatment Frequency Of Treatment Once a Day Treatment Plan Physical Therapy Treatment Plan Bed Mobility Training,Transfer Training,Gait Training, Therapeutic Exercise,Balance Retraining,Discharge Planning, Hot or Cold Pack,Neuromuscular Re-ed,Coordination Retraining Precautions Other Precautions O2 sat Recommendations To Nursing Amount of Assist Needed 1 Person Assist Discharge Recommendations PT Discharge Recommendations Home with 30/10 Assist Available,Home Health,SNF Rehab,Home vs SNF Equipment Needed for Home Before FWW if not safe without AD/SPC Discharge Transportation Needs at Discharge Private Vehicle,Wheelchair/ Cabulance
--- NOTE | 2021-03-30 12:36 | DIET.PN1 ---
Dietary Progress Note RD Note: Pt successfully extubated, now cleared by BELTING CUTTER for regular texture liquids and solids. Ht: 170.18 cm Wt: 129 kg BMI: 46.0 Last BM: () MNA: Omari Score: 14 Labs: RBC 4.64 X10^6/uL (4.5-5.9) 03/30/21 06:30 Hgb 11.9 g/dL (13.5-17.5) L 03/30/21 06:30 Hct 37.4 % (41-53) L 03/30/21 06:30 Creatinine 0.81 mg/dL (0.66-1.25) 03/30/21 06:30 Lactate 1.1 mmol/L (0.7-2.1) 03/27/21 09:51 NT-Pro-B Natriuret Pep 6240 pg/mL (<125) H 03/27/21 09:51 No further nutrition interventions identified at this time. Electronically Signed by: Almaz Arellano 03/30/21 12:36 Clinical Dietitian [address] [id number]
--- NOTE | 2021-03-30 14:16 | CM.DPC ---
DCP Continued: CM met with patients brother and discussed DC planning with him. patients brother stated he knows his brother is not open to going to SNF but might be open to HH with PT, OT, and an AID if needed. CM will work with the patient to determine if he will agree with HH at [facility]. will need F2F signed. one placed into red Chart asking for MD signature. Patients brother also stated that his brother might benifit from private pay care givers. CM gave the brother a list of private pay care giving companies that he might work with to help his brother set that up. CM attempted to meet with the patient but he was working with therapy and then was working with Speech therapy. CM will attempt to meet with him again before the end of my shift if I am not able CM department will follow up in the am to finalize DC plan. Diane Rahman RN [facility]
--- NOTE | 2021-03-30 14:54 | DI.RAD.S_ITS ---
PROCEDURE: XR CHEST 1V INDICATIONS: resp failure TECHNIQUE: One view of the chest was acquired. COMPARISON: [facility], CR, XR CHEST 1V, 03/29/2021, 5:12. FINDINGS: Surgical changes and devices: Cervical thoracic spine fixation hardware is stable. Lungs and pleura: Increased opacification in the lung bases bilaterally not significantly changed compared to prior examination. No pleural effusions or pneumothorax. Mediastinum: Mediastinal contours appear normal. Heart size is normal. Bones and chest wall: No suspicious bony lesions. Overlying soft tissues appear unremarkable. IMPRESSION: Increased bibasilar lung opacification not significantly changed compared to March 29, 2021. Finding could be secondary to aspiration, pneumonia or atelectasis. Dictated by: Aparna Wallace MD, PhD on 03/30/2021 at 13:09 Approved by: Aparna Wallace MD, PhD on 03/30/2021 at 13:11
[2021-03-30] MEDS: ACETAMINOPHEN 325 MG TABLET 650 MG PO (20:24)
[2021-03-31] VITALS (9 sets, daily range): BP systolic 82–125; BP diastolic 30–78; PULSE 73–91; RESP 16–22; TEMP 37.3–37.5; O2SAT 90–96
--- NOTE | 2021-03-31 04:00 | PC.NURSE ---
Addendum entered by Melissa Guthrie R.N. 03/31/21 07:27: AM nurse will notify family regarding broken tooth. Addendum entered by Melissa Guthrie R.N. 03/31/21 06:39: Left message for classification inspector, Dr. Lacy regarding tooth, awaiting call back. Original Note: Patient reported that he broke his front tooth while using the incentive spirometer. Inspected his mouth and noted right front tooth was broken. Denies pain, no bleeding noted. Found broken tooth on chest.
[2021-03-31] MEDS: LEVOTHYROXINE 150 MCG TABLET PO (05:19)
--- NOTE | 2021-03-31 08:21 | P.PN_ITS ---
Subjective Subjective Date Patient Seen: 03/31/21 Time Patient Seen: 08:21 Interval history: Patient with pretty uneventful day yesterday. Up with physical therapy is feeling better day by day. Seen by speech therapy cleared for a regular diet with thin liquids etcetera Has some discomfort in his right ankle when he bears weight on it wants me look at that. Has had some increased bowel urgency without a lot of production. Lots of noises are coming from his abdomen as well. Does have some loose stool from time to time last couple of days Breathing is okay as far as he knows No other real concerns Exam Vital Signs (past 8 hours): - 03/31/21 04:00 Temperature 99.3 F Pulse Rate 83 Respiratory Rate 18 Blood Pressure 123/72 Pulse Oximetry 91 Fraction of Inspired Oxygen 35 Oxygen Delivery Method Nasal Cannula Oxygen Flow Rate 1 Narrative Exam Narrative: HEENT-unremarkable Lungs-diminished breath sounds throughout no wheezes Heart-regular rate and rhythm Abdomen-benign obese positive bowel tones maybe minimally hyperactive Extremities-bruising at the ankle medial and lateral malleoli no tenderness to palpation mild edema, obvious psoriasis over the top of the foot Objective Labs Result Diagrams: 03/30/21 06:30 03/30/21 06:30 Labs: Laboratory Results - last 24 hr 03/30/21 06:30 Total Counted 100 Seg Neutrophils % 88.0 H Band Neutrophils % 4.0 Lymphocytes % (Manual) 3.0 L Monocytes % (Manual) 5.0 Neutrophils # (Manual) 00351 H RBC Morphology Not Reportable Hypochromasia 2+ H Target Cells 2+ H PFSH Medical History Acquired insufficiency of aortic valve (10/08/15) Asthma Cellulitis (~02/2020) Chronic obstructive pulmonary disease (01/19/11) Cobalamin deficiency CTS (carpal tunnel syndrome) Duodenal ulcer Eczema Elevated d-dimer (~02/2020) Essential hypertension Former smoker Gastric ulcer History of malignant neoplasm of prostate Hypothyroidism (08/21/14) Idiopathic peripheral neuropathy Leukocytosis (01/19/11) Low back pain of over 3 months duration (11/15/16) Obesity (01/19/11) Olecranon bursitis of left elbow Osteoarthritis Prostate cancer (2010) Thrombocytosis (01/19/11) Unilateral primary osteoarthritis, right knee Weakness of right lower extremity (11/15/16) Surgical History History of arthroplasty of right knee (05/24/20) History of spinal fusion (2012) History of splenectomy (1975) Status post cataract extraction of both eyes with insertion of intraocular lens Status post wrist surgery (2011) Family History Brother Thyroid cancer Mother Breast cancer Father No problems noted. 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 Respiratory-much improved. Continues on minimal oxygen replacement therapy at somewhere between a 0.5 L and 1 liter/minute. Would not increased beyond that. Aiming for an oxygen saturation of about 88-91% at maximum Continue with current prednisone 40 mg a day in probably okay to discharge on 20 mg a day until he can be seen in the outpatient clinic. When he is discharged she should also resume his usual inhalers which include steroid inhaler as well as ipratropium in addition to the albuterol 2. Neuro-patient does seem to be back to baseline or extremely close to that. Asked appropriate questions as appropriate concerns I think is recovering nicely. Reports having not had a lot of sleep in the last 24 hours will see if some very low-dose lorazepam and or perhaps a dose of Ambien this evening can be helpful. 3. GI-continue with patient's proton pump inhibitor but okay to switch to oral. Patient was on broad-spectrum IV antibiotics and perhaps may have an element of affect from that. No obvious change in bowels to suggest C diff at this point but if patient does persist with very frequent very loose stool then perhaps is test for C diff toxin would be appropriate 4. Right ankle pain-at obvious bruising there perhaps exacerbated by the Lovenox he has been receiving. I presume there was some sort of injury around the time that he was so altered with his mental status because of his hypercapnia. No tenderness on exam nothing to suggest any bony injury this appears to all be soft tissue and should therefore improve over time 5. VTE prophylaxis-will reduce dose of Lovenox down to once a day at this 0.40 mg 6. Cardiac-echocardiography report finally reviewed. No active issues with his heart. Essentially normal echocardiogram. Minor valvular disease but nothing to explain any of his presentation of clinical picture fortunately 7. Disposition-patient borderline safe to go home with increased assistance he certainly understands he will need additional care at home. Please see care management no. I think is probably okay to go home with home health services and patient anticipates being able to hire some private caregivers as well which I think is appropriate and probably even essential. Overall patient is vastly improved and continues to improve rather rapidly over the last 24-48 hours. A certainly deserves another 24+ hours in the hospital. May be ready for discharge assuming we can ensure increased assistance at home tomorrow. Unfortunately the holiday will make it more difficult to obtain home health services and that sort of thing but that is only a temporary delay Note: Greater than 30 minutes total time was spent on day of service, evaluating the patient on the floor, including examining the patient, discussing clinical course with clinical and nursing staff, reviewing clinical course in the computer, preparing documentation and writing orders for continued management of care, discussing status with family as appropriate, reviewing plans for the next 24 hours with both patient/family and nursing staff as appropriate. Quality VTE Deep Vein Thrombosis/Pulmonary Embolism Present on Admission: No
[2021-03-31] MEDS: ALBUTEROL/IPRATROPIUM 3 ML AMPUL INH ×3 (08:58→19:32)
[2021-03-31] MEDS: predniSONE 20 MG TABLET 40 MG PO (09:05)
[2021-03-31] MEDS: PANTOPRAZOLE DR 40 MG TABLET PO (09:05)
[2021-03-31] MEDS: DULOXETINE 20 MG CAPSULE PO (09:06)
[2021-03-31] MEDS: TAMSULOSIN 0.4 MG CAPSULE PO (09:06)
[2021-03-31] MEDS: ENOXAPARIN 40 MG/0.4 ML SYRINGE SUBCUT (09:06)
--- NOTE | 2021-03-31 09:38 | PC.NURSE ---
Patient alert,oriented denies pain, reports his breathing is better. LS clear in bases, RUL rhonci, sats on 1L 90% Rodriguez cath removed at [address] Vargas assessed patients right foot, foot is bruised and 1+ edema. PPP, warm to touch. Bed alarm on.
--- NOTE | 2021-03-31 10:37 | PT.IPTN ---
Current Diagnoses Acute respiratory failure with hypercapnia (03/27/21) Physical Therapy Treatment Note M2 PT-IP Current Condition Start: 03/30/21 12:29 Freq: NEEDED Status: Active Protocol: Document 03/30/21 11:30 AB (Rec: 03/30/21 12:43 AB [email or web address]) Physical Therapy Current Condition Current Condition Evaluation Date 03/30/21 Treatment Diagnosis COPD exacerbation; difficulty in walking Onset Date 03/27/21 M3 PT-IP Subjective Start: 03/30/21 12:29 Freq: NEEDED Status: Active Protocol: Document 03/31/21 10:37 AB (Rec: 03/31/21 11:55 AB [email or web address]) Subjective Physical Therapy Visit Type Type Treatment Note Visit Start Time 10:37 Visit Stop Time 11:00 Total Visit Minutes 23 Number of ELECTRICIAN STATION ASSISTANT Visits 0 Physical Therapy Visit Comments Patient Comments agreed to do PT; requested to use the toilet M4 PT-IP Mobility and Gait Start: 03/30/21 12:29 Freq: NEEDED Status: Active Protocol: Document 03/31/21 10:37 AB (Rec: 03/31/21 11:55 AB [email or web address]) PT-Bed Mobility Assessment Supine to Sit Supine to Sit Standby Assistance,Head of Bed Elevated PT-Transfer Assessment Sit to and From Stand Sit to and from Stand Contact Guard Assistance,1 Person Assistance,Use of Upper Extremities Equipment Transfer Assistive Device Gait Belt,Front Wheeled Walker Orthotic/Prosthetic Devices or Brace: No Transfers Transfer Destination Toilet Transfer Technique ambulated Transfer Ability Level of Assist Contact Guard Assistance,1 Person Assistance,Use of Upper Extremities Comments Mobility Comments O2 sat at rest: 88-90% with 2 1/2L/min O2. completed supine to sit with HOB elevated SBA. able to sit on EOB SBA. cued for PLB. O2 sat 88%. completed sit to stand CGA and ambulated to the toilet using FWW CGA. O2 sat decreased to ~ 84% with ambulation. cued for PLB. pt required assistance for hygiene care. completed sit to stand from the toilet using grab bar CGA and ambulated to the chair using fWW CGA. O2 sat decreased to 86-87% after was and cued for PLB. pt rested. agreed to ambulate more and completed ~ 35 ft in room using FWW CGA. cued for PLB in between ambulation. O2 at end of ambulation sitting on chair: 89-95%. pt agreed to stay up on chair. positioned on chair. call light and table placed within reach. talked to pt regarding assistance at home. stated that his brother and brother's son will be staying with him for ~ 3 day upon d/c and can also have friends to stay with him if needed. agreed with HHPT services. Gait Assessment Gait Gait Assistance Required: Contact Guard Assist Distance (Feet) 35 Able to Maintain Weight Bearing Status Yes During Gait Assistive Devices Assistive Device Gait Belt,Front Wheeled Walker Orthotic/Prosthetic Devices or Brace: No Gait Deviations General Gait Pattern Antalgic,Wide Based Gait Factors Limiting Gait Function Factors Limiting Gait Function Decreased Activity Tolerance, Decreased Strength,Poor Balance,Respiratory Distress M5 PT-IP Objective Assessments Start: 03/30/21 12:29 Freq: NEEDED Status: Active Protocol: Document 03/30/21 11:30 AB (Rec: 03/30/21 12:43 AB [email or web address]) Orientation Orientation/Cognition Level of Alertness Alert Orientation Name Language Function Ability No Deficits Noted Safety Awareness Decreased Safety Awareness Gross Range of Motion Lower Extremity ROM Assessment Within Functional Limits Strength Lower Extremity Strength Assessment Within Functional Limits Sensation Assessment Sensation Gross Sensation WNL Muscle Tone Muscle Tone WNL Yes M6 PT-IP Treatment Start: 03/30/21 12:29 Freq: NEEDED Status: Active Protocol: Document 03/31/21 10:37 AB (Rec: 03/31/21 11:55 AB [email or web address]) Physical Therapy Treatment Education Education Provided Safety M7 PT-IP Assessment and Plan Start: 03/30/21 12:29 Freq: NEEDED Status: Active Protocol: Document 03/31/21 10:37 AB (Rec: 03/31/21 11:55 AB [email or web address]) PT Summary Assessment and Plan Potential Rehabilitation Potential Good Summary Impairments Pain,ROM,Strength,Balance, Coordination,Cognition,Bed Mobility,Transfers,Gait, Activity Tolerance Progress Towards Goals Slow Progress due to Activity Tolerance Assessment Summary pt improving slowly and requiring CGA with ambulation using FWW but O2 sat still decreases to ~ 84-87% with activity. Pt plans to go home and initially will have family to assist for a few days. pt will benefit from HHPT. Goals Bed Mobility Goal Independent Transfer Goal Independent,Front Wheeled Walker Gait Goal Independent,Front Wheel Walker Gait Distance 200 Other Goals improve ambulation without AD/ SPC SBA 150 ft up/down 2 steps R rail ascending SBA Days to Meet Goals 10 Frequency of Treatment Frequency Of Treatment Once a Day Treatment Plan Physical Therapy Treatment Plan Bed Mobility Training,Transfer Training,Gait Training, Therapeutic Exercise,Balance Retraining,Discharge Planning, Hot or Cold Pack,Neuromuscular Re-ed,Coordination Retraining Precautions Other Precautions O2 sat Recommendations To Nursing Amount of Assist Needed 1 Person Assist Discharge Recommendations PT Discharge Recommendations Home with Assistance,Home Health Equipment Needed for Home Before FWW if not safe without AD/SPC Discharge Transportation Needs at Discharge Private Vehicle
--- NOTE | 2021-03-31 12:15 | OT.IP.TRT ---
Current Diagnoses Acute respiratory failure with hypercapnia (03/27/21) Occupational Therapy Treatment Note M2 OT-IP Current Condition Start: 03/30/21 12:48 Freq: Status: Active Protocol: Document 03/30/21 12:50 [facility] (Rec: 03/30/21 13:03 [facility] [id number]) Occupational Therapy Current Condition Current Condition Evaluation Date 03/30/21 Treatment Diagnosis COPD exacerbation, decreased mobility Diagnosis Onset Date 03/27/21 M3 OT- IP Subjective and Pain Start: 03/30/21 12:48 Freq: Status: Active Protocol: Document 03/31/21 11:50 [facility] (Rec: 03/31/21 12:57 [facility] [id number]) OT- Subjective Occupational Therapy Visit Type Type Treatment Note Visit Start Time 11:50 Visit Stop Time 12:15 Total Visit Minutes 25 Occupational Therapy Visit Comments Patient Comments Pt wanting to try to shower. Patient/Caregiver Goals TO go home. OT Pain Assessment Pain When Pain Assessed At Rest Pain Present Pain Present Denied Pain M4 OT- IP ADL's Start: 03/30/21 12:48 Freq: Status: Active Protocol: Document 03/31/21 11:50 [facility] (Rec: 03/31/21 12:57 [facility] [id number]) OT ADL-Grooming Comments OT Grooming Comments Pt able to wash his face/hands after set-up. OT ADL-Toileting General Evaluation Toileting Ability Moderate Assistance Areas Needing Assistance Perform Perineal Hygiene Comments OT Toileting Comments Pt needing to assist to wipe for hygiene needs. Spoke of options of toilet paper aid or bidet. OT ADL-Bathing Comments OT Bathing Comments Attempted to shower but got too tired after having a bowel movement and wanting to get back to the recliner to have lunch. M5 OT- IP IADL's Start: 03/30/21 12:48 Freq: Status: Active Protocol: Document 03/30/21 12:50 [facility] (Rec: 03/30/21 13:03 [facility] [id number]) OT-Instrumental Activities of Daily Living Home Safety Awareness Awareness of Need for Assistance at Home Good Awareness Ability to Problem Solve Emergency Able to Problem Solve Situations Home Safety Comments Pt has a supportive brother who will be home to assist pt initially. At this time pt is a bit groggy and needing vc for completeness and sequence through tasks. M6 OT- IP Functional Cognition Start: 03/30/21 12:48 Freq: Status: Active Protocol: Document 03/31/21 11:50 [facility] (Rec: 03/31/21 12:57 [facility] [id number]) Cognitive Factors Limiting Selfcare Function Cognitive Comments Cognitive Assessment Comments Pt still needing cues for completeness and sequencing at times. Pt needing increase time to process at times. M7 OT- IP Mobility and Balance Start: 03/30/21 12:48 Freq: Status: Active Protocol: Document 03/31/21 11:50 [facility] (Rec: 03/31/21 12:57 [facility] [id number]) OT-Transfer Assessment Sit to and From Stand Sit to and from Stand Minimal Assistance,Moderate Assistance Transfers Transfer Ability Contact Guard Assistance Technique Transfer Destination Chair,Toilet Transfer Technique Stand Step Pivot Devices Transfer Assistive Devices Gait Belt,Front Wheeled Walker Comments Mobility Comments Pt needing MODA X1 to stand from lower surfaces and otherwise CGA with FWW. Pt tired easily . Pt on 2.5L of O2 and from 87-90%. OT- Balance Assessment Sitting Balance and Reactions Static Sitting Balance Ability Good Dynamic Sitting Balance Ability Fair Standing Balance and Reactions Static Standing Balance Ability Fair M8 OT- IP Objective Assessments Start: 03/30/21 12:48 Freq: Status: Active Protocol: Document 03/30/21 12:50 [facility] (Rec: 03/30/21 13:03 [facility] [id number]) OT Strength Comments Strength Comments Pt at least 3-/5, not able to formally assess. OT-Muscle Tone Assessment Muscle Tone WNL Yes M9 OT- IP Assessment and Plan Start: 03/30/21 12:48 Freq: Status: Active Protocol: Document 03/31/21 11:50 [facility] (Rec: 03/31/21 12:57 [facility] [id number]) OT Summary Assessment and Plan Potential Rehabilitation Potential Good Analytic Complexity at Evaluation Moderate Summary OT Impairments Strength,Balance,Functional Cognition,Functional Mobility, Grooming,Dressing,Toileting, Bathing,Toilet Transfers, Shower Transfers,Activity Tolerance Progress Towards Goals Slow Progress due to Medical Issues,Slow Progress due to Activity Tolerance,Slow Progress due to Cognition Assessment Summary Pt able to toilet but too tired for showering needs. Pt if going home would benefit from 30/10 assist and home health. Pt looking to go home when medically stable Goals Self-Feeding Goal Independent Grooming Goal Independent Dressing Goal Independent Toileting Goal Independent Bathing Goal Independent Toilet Transfer Goal Independent Shower Transfer Goal Independent Patient/Caregiver Education Goal Demonstrate Energy Conservation and Pacing Days to Meet Goals 15 Frequency of Treatment Frequency Of Treatment Once a Day Treatment Plan OT Treatment Plan ADL Training,Functional Cognition Training,Functional Mobility,Patient/Family Education,Discharge Planning Other Treatment Recommendations and Next shower Treatment Focus Discharge Recommendations OT Discharge Recommendations Home with 24/7 Assist Available,Home Health,SNF Rehab Transportation Needs at Discharge Private Vehicle,Wheelchair/ Cabulance
--- NOTE | 2021-03-31 12:18 | CM.DPC ---
DCP Cont: Met with patient in his room. Dr. Vargas signed face to face form. Introduced self and role. Mentioned home health, patient indicated, he has had home health before, couldn't remember if he had [facility] or [facility]. Left him brochures to look at for both agencies. He was sitting up in his chair, oxygen in place. P: DCP to continue to check in. Will follow up and see which agency preference patient has before ordering home health. Evy Brown RN/Architect Manager
--- NOTE | 2021-03-31 13:57 | ST.IPDYTX ---
Visit Care Team Role Provider Type Pedro Lucero DO Emergency Provider Physician Referring Provider Specialty: Emergency Medicine Address: [address] [place] [address], [address] Email: [email or web address] [email or web address] Vargas MD Admit Provider Physician Attending Provider Primary Care Provider Specialty: Internal Medicine Address: [address] [place] [address], [address], [address] Email: [email or web address] Start: 03/30/21 10:35 Freq: Status: Active Protocol: Document 03/31/21 13:50 ZS (Rec: 03/31/21 13:57 ZS [id number]) Dysphagia Treatment Session Time Visit Start Time 13:40 Visit Stop Time 13:55 Total Visit Minutes 15 Setting Assessment Location Acute Care Visit Type Note Type Discharge Summary Patient Information Identification Type Name,ID Wristband Subjective Observations Patient was seated in chair finishing lunch and watching TV when clinician arrived. Treatment Liquids Trialed Thin Solids Trialed Regular Administration Type Tea Spoon,Cup Single Sip,Self- Feeding Oral Strategies Upright at 90 degrees Pharyngeal Strategies Sitting Upright (90 deg) Treatment Activities Observed patient take 2 sips of thin liquid from an open cup and take 1 bite of lightly dressed salad. Discussed progress and discharge from speech therapy. Assessment Patient Response to Treatment Excellent Assessment of Improvement Tanner swallowed thin liquid with no difficulty despite multiple distractions present in the room. He ate salad with little to no dressing and had no oral residue and reported no difficulty chewing. Clinician observed he ate about 80% of his salad from lunch and was exhibiting no signs of fatigue. No overt signs or symptoms of aspiration observed and no difficulty reported by patient . Discharging from speech therapy at this time as patient is safely tolerating least restrictive diet ( regular texture and thin liquids). Diet Recommendations Recommendations Continue Current Diet Liquids Order Thin Diet Order Regular Medication Recommendations As Tolerated Aspiration Precautions Recommended Precautions Upright at 90 Degrees,Small Bites/Sips,Lingual Sweep Treatment Plan Placement Recommendation after Discharge [facility],Home with Home Health Appropriate for Continued Therapy No: Patient is tolerating least restrictive diet w/ no overt s/sx of aspiration
[2021-03-31] MEDS: ACETAMINOPHEN 325 MG TABLET 650 MG PO (20:46)
[2021-03-31] MEDS: LORazepam 1 MG TABLET PO (20:49)
[2021-04-01 04:00] VITALS: BP 124/70; PULSE 71; RESP 18; TEMP 36.6; O2SAT 91
[2021-04-01] MEDS: LEVOTHYROXINE 150 MCG TABLET PO (06:31)
[2021-04-01 08:00] VITALS: BP 117/79; PULSE 80; RESP 16; TEMP 36.4; O2SAT 94
[2021-04-01] MEDS: predniSONE 20 MG TABLET 40 MG PO ×2 (08:48→08:58)
[2021-04-01] MEDS: DULOXETINE 20 MG CAPSULE PO (08:48)
[2021-04-01] MEDS: ENOXAPARIN 40 MG/0.4 ML SYRINGE SUBCUT (08:48)
[2021-04-01] MEDS: TAMSULOSIN 0.4 MG CAPSULE PO (08:48)
[2021-04-01] MEDS: PANTOPRAZOLE DR 40 MG TABLET PO (08:57)
[2021-04-01] MEDS: SODIUM CHLORIDE 0.9% FLUSH 10 ML IV (08:58)
--- NOTE | 2021-04-01 09:41 | OT.IP.TRT ---
Current Diagnoses Acute respiratory failure with hypercapnia (03/27/21) Occupational Therapy Treatment Note M2 OT-IP Current Condition Start: 03/30/21 12:48 Freq: Status: Active Protocol: Document 03/30/21 12:50 [facility] (Rec: 03/30/21 13:03 [facility] [id number]) Occupational Therapy Current Condition Current Condition Evaluation Date 03/30/21 Treatment Diagnosis COPD exacerbation, decreased mobility Diagnosis Onset Date 03/27/21 M3 OT- IP Subjective and Pain Start: 03/30/21 12:48 Freq: Status: Active Protocol: Document 04/01/21 09:43 [facility] (Rec: 04/01/21 09:53 [facility] [id number]) OT- Subjective Occupational Therapy Visit Type Type Treatment Note Visit Start Time 08:46 Visit Stop Time 09:41 Total Visit Minutes 55 Occupational Therapy Visit Comments Patient Comments Pt wanting to use the bathroom . Patient/Caregiver Goals TO go home. OT Pain Assessment Pain When Pain Assessed At Rest Pain Present Pain Present Denied Pain M4 OT- IP ADL's Start: 03/30/21 12:48 Freq: Status: Active Protocol: Document 04/01/21 09:43 [facility] (Rec: 04/01/21 09:53 [facility] [id number]) OT ADL-Dressing General Eval Lower Body Dressing Ability Standby Assistance Comments OT Dressing Comments Pt able to teofilo/doff his socks from the edge of the bed. OT ADL-Toileting General Evaluation Toileting Ability Moderate Assistance Areas Needing Assistance Perform Perineal Hygiene Comments OT Toileting Comments Pt needing assist for hygiene after bowel movement. M6 OT- IP Functional Cognition Start: 03/30/21 12:48 Freq: Status: Active Protocol: Document 04/01/21 09:43 [facility] (Rec: 04/01/21 09:53 [facility] [id number]) Cognitive Factors Limiting Selfcare Function Cognitive Ability Level of Alertness Alert Patient Orientation Name Attention Span Ability Capable of Focused Attention, Capable of Sustained Attention Ability to Follow Commands Able to Follow One Step Commands Memory Description Short Term Impaired Cognitive Tests SLUMS Pt scored 23/30 which implies mild cognitive deficits. Pt did not know the day, able to recall 3/5 objects after time passed, not able to states 3 and 4 digit numbers backwards, and not able to draw the hour hands of the clock correctly after time given. Cognitive Comments Cognitive Assessment Comments Pt still at times needing increased time to follow commands. Pt states at times forgets his medications and now considering using a pill organizer. M7 OT- IP Mobility and Balance Start: 03/30/21 12:48 Freq: Status: Active Protocol: Document 04/01/21 09:43 [facility] (Rec: 04/01/21 09:53 [facility] [id number]) OT-Transfer Assessment Sit to and From Stand Sit to and from Stand Minimal Assistance,Moderate Assistance Transfers Transfer Ability Contact Guard Assistance Technique Transfer Destination Bed,Chair,Toilet Transfer Technique Stand Step Pivot Devices Transfer Assistive Devices Gait Belt,Front Wheeled Walker Comments Mobility Comments Pt needing MODA to stand form lower surfaces. CGA with FWW while up on his feet and needing assist for O2 tubing management needs. OT- Balance Assessment Sitting Balance and Reactions Static Sitting Balance Ability Good Dynamic Sitting Balance Ability Fair Standing Balance and Reactions Static Standing Balance Ability Fair M8 OT- IP Objective Assessments Start: 03/30/21 12:48 Freq: Status: Active Protocol: Document 03/30/21 12:50 [facility] (Rec: 03/30/21 13:03 [facility] [id number]) OT Strength Comments Strength Comments Pt at least 3-/5, not able to formally assess. OT-Muscle Tone Assessment Muscle Tone WNL Yes M9 OT- IP Assessment and Plan Start: 03/30/21 12:48 Freq: Status: Active Protocol: Document 04/01/21 09:43 [facility] (Rec: 04/01/21 09:53 [facility] [id number]) OT Summary Assessment and Plan Potential Rehabilitation Potential Good Analytic Complexity at Evaluation Moderate Summary OT Impairments Strength,Balance,Functional Cognition,Functional Mobility, Grooming,Dressing,Toileting, Bathing,Toilet Transfers, Shower Transfers,Activity Tolerance Progress Towards Goals Slow Progress due to Activity Tolerance,Slow Progress due to Cognition Assessment Summary Pt still needing assist from sit to stand and completeness for toileting needs today. Pt scored 23/30 on th SLUMS which implies mild cognitive deficits. Pt's brother in the room and aware for pt to have 24/7 assist at home at this time. Pt looking to go home today. Goals Self-Feeding Goal Independent Grooming Goal Independent Dressing Goal Independent Toileting Goal Minimal Assistance Bathing Goal Moderate Assistance Toilet Transfer Goal Independent Shower Transfer Goal Independent Days to Meet Goals 10 Frequency of Treatment Frequency Of Treatment Once a Day Treatment Plan OT Treatment Plan ADL Training,Functional Cognition Training,Functional Mobility,Patient/Family Education,Discharge Planning Discharge Recommendations OT Discharge Recommendations Home with / Assist Available,Home Health Transportation Needs at Discharge Private Vehicle
--- NOTE | 2021-04-01 12:21 | PT.IPTN ---
Current Diagnoses Acute respiratory failure with hypercapnia (03/27/21) Physical Therapy Treatment Note M2 PT-IP Current Condition Start: 03/30/21 12:29 Freq: NEEDED Status: Active Protocol: Document 03/30/21 11:30 AB (Rec: 03/30/21 12:43 AB [id number]) Physical Therapy Current Condition Current Condition Evaluation Date 03/30/21 Treatment Diagnosis COPD exacerbation; difficulty in walking Onset Date 03/27/21 M3 PT-IP Subjective Start: 03/30/21 12:29 Freq: NEEDED Status: Active Protocol: Document 04/01/21 12:07 LJ (Rec: 04/01/21 12:21 LJ [id number]) Subjective Physical Therapy Visit Type Type Treatment Note Visit Start Time 11:03 Visit Stop Time 11:29 Total Visit Minutes 26 Number of FITTING ROOM CHECKER Visits 1 Physical Therapy Visit Comments Patient Comments agreed to do PT; brother in room assisting treatment M4 PT-IP Mobility and Gait Start: 03/30/21 12:29 Freq: NEEDED Status: Active Protocol: Document 04/01/21 12:07 LJ (Rec: 04/01/21 12:21 LJ [id number]) PT-Transfer Assessment Sit to and From Stand Sit to and from Stand Minimal Assistance,Moderate Assistance Equipment Transfer Assistive Device Gait Belt,Front Wheeled Walker Orthotic/Prosthetic Devices or Brace: No Transfers Transfer Destination Chair,Wheelchair Transfer Ability Level of Assist Contact Guard Assistance Comments Mobility Comments O2 at rest 92% at 2.5L. Pt required cues to scoot to front of chair and use Ues to push up from chair rather than pull on FWW. Pt ambulated to stairs without rest then requested to sit in WC to return to room. He returned to chair using UEs to lower himself into chair. Gait Assessment Gait Gait Assistance Required: Contact Guard Assist Distance (Feet) 100 Able to Maintain Weight Bearing Status Yes During Gait Assistive Devices Assistive Device Gait Belt,Front Wheeled Walker Orthotic/Prosthetic Devices or Brace: No Gait Deviations General Gait Pattern Antalgic,Flexed Trunk,Step-to Gait,Wide Based Gait Factors Limiting Gait Function Factors Limiting Gait Function Decreased Activity Tolerance, Decreased Sensation,Decreased Strength,Limited Range of Motion,Pain,Poor Balance,Poor Safety Awareness,Respiratory Distress Comments Gait Comments Pt performed step-to pattern with right LE externally rotated significantly. He complains of pain in his ankle limiting distance. Pt needed cues to stand upright and keep walker closer to his body. Brother assisting pt with gait by CGA. Therapist next to pt with portable O2. During ambulation and after stair climbing, O2 at 91% 2.5L. M5 PT-IP Objective Assessments Start: 03/30/21 12:29 Freq: NEEDED Status: Active Protocol: Document 03/30/21 11:30 AB (Rec: 03/30/21 12:43 AB [id number]) Orientation Orientation/Cognition Level of Alertness Alert Orientation Name Language Function Ability No Deficits Noted Safety Awareness Decreased Safety Awareness Gross Range of Motion Lower Extremity ROM Assessment Within Functional Limits Strength Lower Extremity Strength Assessment Within Functional Limits Sensation Assessment Sensation Gross Sensation WNL Muscle Tone Muscle Tone WNL Yes M6 PT-IP Treatment Start: 03/30/21 12:29 Freq: NEEDED Status: Active Protocol: Document 04/01/21 12:07 LJ (Rec: 04/01/21 12:21 LJ [id number]) Physical Therapy Treatment Education Education Provided Safety M7 PT-IP Assessment and Plan Start: 03/30/21 12:29 Freq: NEEDED Status: Active Protocol: Document 04/01/21 12:07 LJ (Rec: 04/01/21 12:21 LJ [id number]) PT Summary Assessment and Plan Potential Rehabilitation Potential Good Summary Impairments Pain,ROM,Strength,Balance, Coordination,Cognition,Bed Mobility,Transfers,Gait, Activity Tolerance Progress Towards Goals Slow Progress due to Activity Tolerance Assessment Summary Pt improved w/mobility and activity tolerance with O2 reamining in low 90s during all treatment. Right ankle pain adversely affects gait pattern and tolerance. He states he was told it was sprained but was given no restrictions in WB status. Pt will require / assist at home which he will get from his family. HH appropriate to improve strength and activity tolerance to return to PLOF and increased independence. Goals Bed Mobility Goal Independent Transfer Goal Independent,Front Wheeled Walker Gait Goal Independent,Front Wheel Walker Gait Distance 200 Other Goals improve ambulation without AD/ SPC SBA 150 ft up/down 2 steps R rail ascending SBA Days to Meet Goals 10 Frequency of Treatment Frequency Of Treatment Once a Day Treatment Plan Physical Therapy Treatment Plan Bed Mobility Training,Transfer Training,Gait Training, Therapeutic Exercise,Balance Retraining,Discharge Planning, Hot or Cold Pack,Neuromuscular Re-ed,Coordination Retraining Other Recommendations and Next Treatment gait distance, stairs, post op Focus ex. Precautions Other Precautions O2 sat Recommendations To Nursing Amount of Assist Needed 1 Person Assist Discharge Recommendations PT Discharge Recommendations Home with Assistance,Home Health Equipment Needed for Home Before pt states he has walker at Discharge home Transportation Needs at Discharge Private Vehicle
--- NOTE | 2021-04-01 12:47 | CM.DPC ---
Addendum entered by Evy Brown R.N. 04/01/21 14:24: Dr. Augustine is here, and is discharging patient. Let her know that paper work has already been signed for home health. She was inquiring how soon home health could be at the home. Let her know, most likely, at least Sunday, possibly Sunday due to the holiday weekend. Updated her that patient indicated that he does have a friend that can stay with him at night. He also has a brother in the area who will be picking him up. Called Clemente at [facility] and let him know that patient is discharging home today. Do not yet have DC Summary, but will fax it over to [facility] when completed. Clemente indicated that patient may not be able to be seen until Sunday, due to holiday week-end. He indicated, he also checked with [facility] and [facility], and they are booked further out. Gave patient a copy of his IMM as well. Original Note: DCP Cont: Patient is wanting to go home today. He finished working with P.T. He does have home oxygen in place. His brother was here while he was working with therapy. Patient indicated, he has a friend that will stay with him at night for a while. He is looking for home caregivers/housekeepers. Gave him the [employer] book with caregiving resources. Patient decided upon [facility]. Called Clemente at [facility] and let him know about referral. Let him know that patient may be discharging today. Faced [facility] face sheet, face to face, orders, H&P, 03/[address] Varg[address]. Included P.T, and O.T. notes. Added RN, P.T, O.T, and bath aide. P: DCP to follow. Will see if Dr. Augustine can discharge patient home today with [facility]. [facility] will just need DC Summary. Evy Brown RN/Field Operations Technician
[2021-04-01 13:00] VITALS: BP 137/79; PULSE 89; RESP 16; TEMP 36.8; O2SAT 88
[2021-04-01 13:52] VITALS: PULSE 86; RESP 20; O2SAT 90
[2021-04-01] MEDS: ALBUTEROL/IPRATROPIUM 3 ML AMPUL INH (13:52)
--- NOTE | 2021-04-01 14:20 | P.DS_ITS ---
History of Present Illness History of Present Illness Chief complaint: SOB Discharge Providers Provider Date of admission: 03/27/21 12:35 Discharge Date: 04/01/21 Primary care physician: Blas Vargas MD Consults: 03/27/21 14:54 Consult to Dietitian, Adult Routine Comment: Reason For Exam: Patient on Ventilator and NPO 03/27/21 20:19 Consult to Dietitian, Adult Routine Comment: Reason For Exam: Patient on Ventilator and NPO 03/29/21 14:06 Consult to Speech Therapy Evaluate & Treat Comment: Physician Instructions: Evaluate and treat 03/30/21 07:09 Consult to Physical Therapy Evaluate & Treat Comment: Physician Instructions: Evaluate and Treat 03/30/21 08:21 Consult to Occupational Therapy Evaluate & Treat Comment: Physician Instructions: Evaluate and treat 04/01/21 12:10 Consult to Home Health Routine Comment: Reason For Exam: Home Health RN, P.T, O.T., Bath Aide Discharge provider: Milady Augustine MD Summary Hospital Course Discharge Diagnosis: Hypercapnia respiratory failure, non infectious, improved COPD, oxygen dependent at home Hypothyroidism Hypertension Peripheral edema Depression Hospital Course: Patient was intubated for acute respiratory failure. Workup revealed no infectious disease etiology and was thought to be secondary to patient having worsening COPD and he and his brother turned his oxygen up. This then decreased mentation and decreased respiratory drive. Patient was extubated approximately 4 days ago and has continued to slowly improve. He had an echo done which did not show any current cardiac issues contributing to the respiratory failure. He has bruising in his right ankle thought to be related to possible injury during his respiratory failure and resuscitation. He will be discharged home with home health including PT, OT, bath aide, RN to help with medications. He will follow-up with Dr. Vargas, his PCP in 2 weeks. He will continue on his same outpatient medications but we will add prednisone 20 mg daily. He will continue with oxygen at home not to exceed 2 L nasal cannula oxygen. He voices understanding with this regard. Status at Discharge Cognitive/behavioral status at discharge: at baseline, oriented and calm Overall status at discharge: patient is progressing back to baseline Exam Vital Signs (past 8 hours): - 04/01/21 08:00 04/01/21 13:00 04/01/21 13:52 Temperature 97.5 F L 98.3 F Pulse Rate 80 89 86 Respiratory Rate 16 16 20 Blood Pressure 117/79 137/79 Pulse Oximetry 94 88 L 90 L Fraction of Inspired Oxygen 24 Oxygen Delivery Method Nasal Cannula Oxygen Flow Rate 1.5 Narrative Exam Narrative: Patient is alert and oriented x3. He appears much older than stated age. HEENT is unremarkable Neck: Supple without adenopathy Chest: Prolonged expiratory phase with coarse airway sounds and scattered wheezes throughout, expiratory Cor: Distant S1-S2 but regular rate and rhythm without murmur Abdomen: Obese, positive bowel sounds, soft, nontender, nondistended Extremities: Trace pitting edema bilateral right greater than left with more significant nonpitting swelling around the right ankle with some ecchymosis. Neurologic exam is nonfocal Objective Labs Result Diagrams: 03/30/21 06:30 03/30/21 06:30 [facility] Medical History Acquired insufficiency of aortic valve (10/08/15) Asthma Cellulitis (~02/2020) Chronic obstructive pulmonary disease (01/19/11) Cobalamin deficiency CTS (carpal tunnel syndrome) Duodenal ulcer Eczema Elevated d-dimer (~02/2020) Essential hypertension Former smoker Gastric ulcer History of malignant neoplasm of prostate Hypothyroidism (08/21/14) Idiopathic peripheral neuropathy Leukocytosis (01/19/11) Low back pain of over 3 months duration (11/15/16) Obesity (01/19/11) Olecranon bursitis of left elbow Osteoarthritis Prostate cancer (2010) Thrombocytosis (01/19/11) Unilateral primary osteoarthritis, right knee Weakness of right lower extremity (11/15/16) Surgical History History of arthroplasty of right knee (05/24/20) History of spinal fusion (2012) History of splenectomy (1975) Status post cataract extraction of both eyes with insertion of intraocular lens Status post wrist surgery (2011) Family History Brother Thyroid cancer Mother Breast cancer Father No problems noted. 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 COPD exacerbation. No evidence of infectious etiology, improved and now on oral steroids Assessment 2. Right ankle trauma. No evidence of fracture Assessment 3. Hypothyroidism Assessment 4. hypertension Plan of Treatment: Discharge to home with home health. They will likely be able to see him on Sunday. He will be on same outpatient medications but will be on prednisone 20 mg daily in addition to this. He will continue on this until he is seen by Dr. Vargas in 2 weeks He will continue with home oxygen but he is not to increase the past 2 L nasal cannula Discharge Plan Discharge Plan Patient Disposition: Home Health Service Discharge orders & Medications Prescriptions: New prednisone 20 mg tablet 20 mg PO DAILY Qty: 60 0RF Continued cyanocobalamin (vitamin B-12) 1,000 MCG tablet extended release 1,000 mcg PO QDAY Qty: 0 0RF Alvesco 160 mcg/actuation HFA aerosol inhaler 2 puff INHALATION BID Qty: 6.1 11RF potassium chloride [Klor-Con M20] 20 mEq tablet,ER particles/crystals 20 meq PO DAILY Qty: 30 11RF omeprazole 40 mg capsule,delayed release(DR/EC) 40 mg PO BID Qty: 60 11RF duloxetine 30 mg capsule,delayed release(DR/EC) 30 mg PO DAILY Qty: 90 3RF levothyroxine 150 mcg tablet See Rx Instructions .ROUTE .COMPLEX Qty: 90 1RF Dose Instruction: take 1 tablet by mouth in the morning before eating/drinking Rx Instructions: take 1 tablet by mouth in the morning before eating/drinking chlorthalidone 25 mg tablet 50 mg PO QDAY Qty: 180 1RF albuterol sulfate [Proventil HFA] 90 mcg/actuation HFA aerosol inhaler 2 puff INHALATION Q4HP PRN (Reason: shortness of breath or wheezing) Qty: 2 3RF diphenhydramine HCl [Allergy (diphenhydramine)] 25 mg capsule 25 mg PO Q4-6H PRN (Reason: Itching) 0RF triamcinolone acetonide 0.1 % cream 1 applic topical TID Qty: 80 3RF fluticasone propionate 50 mcg/actuation spray,suspension 2 spray NASAL BEDTIME PRN (Reason: Allergy Symptoms) 0RF Rx Instructions: administer into each nostril Combivent Respimat 20-100 mcg/actuation mist 1 puff INHALATION BID 0RF Rx Instructions: space evenly during waking hours aspirin 81 mg Tablet,Delayed Release (Dr/Ec) 81 mg PO BID Qty: 60 0RF tamsulosin [Flomax] 0.4 mg Capsule 0.4 mg PO DAILY Qty: 5 0RF Changed acetaminophen 325 mg Tablet 650 mg PO TID PRN (Reason: Pain, Mild) Qty: 60 0RF ibuprofen 400 mg Tablet 400 mg PO Q4HR PRN (Reason: pain, mild) Qty: 60 0RF Follow up/Referrals: Blas Vargas MD [Primary Care Provider] - 2 Weeks Diet/Activity/Treatments Diet: Diet as Tolerated Oxygen: 0.5-1 l/min NC continuous, aim for saturation of 88-91% Skin/Wound/Dressing Care Report to your healthcare provider any signs of infection, such as:: chills, fever Visit Report/Discharge Packet Instructions: DI for Chronic Obstructive Pulmonary Disease, Prednisone Discharge Data Primary Care Provider: Blas Vargas Quality VTE Deep Vein Thrombosis/Pulmonary Embolism Present on Admission: No
--- NOTE | 2021-04-01 15:27 | PC.NURSE ---
Addendum entered by Trisha Perez R.N. 04/01/21 15:28: PAtient had home O2 tank. Patient taken via wc to vehicle driven by brother, patient had all belongings. Original Note: Went over dc instructions and medications with patient, questions answered. RX given, patient had home o
[2021-04-02 09:17] LABS: Fractionated Inspired Oxygen 24; HCO3 ABG 40 mmol/L (22-26); Oxygen Saturation ABG 94 % (95-100); PCO2 ABG 57.3 mmHg (35-45); PO2 ABG 68 mmHg (80-100); TCO2 ABG 42 mmol/L (21-31); pH ABG 7.45 (7.35-7.45)
== END 2021-04-01 15:29 | disposition home or self-care (01) | DRG 208 ==
LOC: ED 10:42 → ICU 15:08 → AC 03-30 15:23 → ICU 03-30 15:23 → AC 03-30 18:18
PROVIDERS: Family Medicine; Internal Medicine Critical Care Medicine; Admitting Provider Internal Medicine; Emergency Provider Emergency Medicine; PCP Internal Medicine; Referring Provider Emergency Medicine; Visit Provider Internal Medicine
DX: J96.22 Acute and chronic respiratory failure with hypercapnia (principal); G93.41 Metabolic encephalopathy; J44.1 Chronic obstructive pulmonary disease with (acute) exacerbation; Z68.42 Body mass index [BMI] 45.0-49.9, adult; Z99.81 Dependence on supplemental oxygen; I95.9 Hypotension, unspecified; M25.571 Pain in right ankle and joints of right foot; K21.9 Gastro-esophageal reflux disease without esophagitis; I10 Essential (primary) hypertension; E03.9 Hypothyroidism, unspecified; F32.9 Major depressive disorder, single episode, unspecified; E66.9 Obesity, unspecified; Z87.891 Personal history of nicotine dependence; Z20.822 Contact with and (suspected) exposure to COVID-19; Z87.11 Personal history of peptic ulcer disease
CPT/HCPCS: 31500; 36415; 36600; 70450; 71045; 71275; 80048; 80053; 80305; 80320; 80329; 81001; 82140; 82550; 82553; 82805; 82962; 83605; 83690; 83735; 83880; 84145; 84443; 84484; 85007; 85025; 85610; 85730; 87040; 87070; 87077; 87086; 87205; 87633; 87635; 87797; 92526; 92610; 93005; 93306; 94002; 94003; 94640; 94660; 94760; 94762; 94799; 96365; 96366; 97116; 97129; 97162; 97166; 97530; 97535; 99223; 99233; 99285; 99291; 99292; C9803; C9113; G0480; J0330; J1170; J1650; J1815; J1940; J1956; J2060; J2250; J2405; J2704; J2930; J3010; J3475; J7613; Q9967

== ENCOUNTER 2021-04-03 07:03 | Inpatient (IN) | payer MEDICARE, OTHER, SELFPAY ==
[2021-03-27 17:06] VITALS: BMI 46.0
[2021-03-29 08:48] VITALS: RESP 7
[2021-03-29 11:48] VITALS: PULSE 68; RESP 17; O2SAT 92
[2021-04-03] VITALS (24 sets, daily range): BP systolic 98–153; BP diastolic 51–89; PULSE 82–106; RESP 10–22; TEMP 36.1–37.4; O2SAT 84–99; BMI 40.7
--- NOTE | 2021-04-03 07:09 | DI.RAD.S_ITS ---
PROCEDURE: XR ANKLE RT 2V INDICATIONS: ankle pain, deformity TECHNIQUE: 3 views of the ankle were acquired. COMPARISON: [facility], , ANKLE 3 VIEWS RIGHT, 08/26/2015, 10:46. FINDINGS: Bones: The right ankle has oblique fracture of the distal fibula with displacement and widening of syndesmosis. There is widening of the mortise medially the hindfoot demonstrates severe degenerative changes with osteophytes and subchondral sclerosis of the talonavicular joint. Soft tissues: No tibiotalar joint effusion. Achilles tendon appears normal. IMPRESSION: 1. Oblique fracture of the distal fibula with widening of the tibiofibular syndesmosis and medial displacement of the distal tibia and widening of the mortise. 2. Degenerative changes of the ankle and hindfoot. Dictated by: Damaso Xiao M.D. on 04/03/2021 at 7:08 Approved by: Damaso Xiao M.D. on 04/03/2021 at 7:12
--- NOTE | 2021-04-03 07:09 | DI.RAD.S_ITS ---
PROCEDURE: XR KNEE RT 1TO2V INDICATIONS: leg pain TECHNIQUE: 2 view(s) of the knee acquired. COMPARISON: [facility], CR, XR KNEE LT 1TO2V, 08/30/2020, 15:12. FINDINGS: Bones: Patient is status post knee joint arthroplasty. Hardware components are in expected positions. No perihardware lucency to suggest loosening. Visualized bony structures are intact. Soft tissues: No joint effusion. IMPRESSION: Postoperative changes of right knee replacement without complication. No acute abnormality Dictated by: Damaso Xiao M.D. on 04/03/2021 at 7:07 Approved by: Damaso Xiao M.D. on 04/03/2021 at 7:07
--- NOTE | 2021-04-03 07:36 | ED.LOWEXIN ---
HPI - Extremity Injury (Lower) General Chief Complaint: Extremity Injury, Lower Stated Complaint: Ankle pain Time Seen by Provider: 04/03/21 07:08 Source: patient and EMS Mode of arrival: EMS History of Present Illness HPI Narrative: 70-year-old male former smoker with history of COPD hypertension, gastric and duodenal ulcers and hypothyroidism presents by EMS for evaluation of a painful, swollen and bruised right foot and ankle. He was recently seen in the emergency department and admitted for respiratory failure that required intubation. He had suffered a fall but was altered on his arrival, he denies any new injury but states his ankle has been significantly painful since he left the hospital. He denies any difficulty breathing, he has had no chest pain or shortness of breath. He has had no fever or chills. He denies any numbness, tingling or weakness. He has no head, neck or back pain. He has no pain in shoulders, hips, knee. He had an ensure this morning for breakfast. Related Data Home Medications Medication Instructions Recorded Confirmed cyanocobalamin (vitamin B-12) 1,000 mcg PO QDAY #0 04/04/17 03/27/21 1,000 mcg tablet,extended release diphenhydramine HCl 25 mg capsule 25 mg PO Q4-6H PRN 09/14/17 03/27/21 (Allergy (diphenhydramine)) fluticasone propionate 50 2 spray NASAL BEDTIME PRN 02/19/20 03/27/21 mcg/actuation nasal spray,suspension ipratropium 20 mcg-albuterol 100 1 puff INHALATION BID 02/19/20 03/27/21 mcg/actuation mist for inhalation (Combivent Respimat) Previous Rx's Medication Instructions Recorded ciclesonide 160 mcg/actuation 2 puff INHALATION BID #6.1 gram 01/14/20 aerosol inhaler (Alvesco) duloxetine 30 mg capsule,delayed 30 mg PO DAILY #90 cap 05/31/20 release omeprazole 40 mg capsule,delayed 40 mg PO BID #60 cap 05/31/20 release potassium chloride 20 mEq 20 meq PO DAILY #30 tab 05/31/20 tablet,extended release(part/cryst) (Klor-Con M) levothyroxine 150 mcg tablet See Rx Instructions .ROUTE 06/07/20 .COMPLEX #90 tab chlorthalidone 25 mg tablet 50 mg PO QDAY #180 tab 06/16/20 aspirin 81 mg tablet,delayed 81 mg PO BID #60 tab 08/31/20 release tamsulosin 0.4 mg capsule (Flomax) 0.4 mg PO DAILY #5 cap 08/31/20 albuterol sulfate 90 mcg/actuation 2 puff INHALATION Q4HP PRN #2 03/07/21 aerosol inhaler (Proventil HFA) device triamcinolone acetonide 0.1 % 1 applic TOPICAL TID #80 g 03/21/21 topical cream acetaminophen 325 mg tablet 650 mg PO TID PRN #60 tab 03/31/21 ibuprofen 400 mg tablet 400 mg PO Q4HR PRN #60 tab 03/31/21 prednisone 20 mg tablet 20 mg PO DAILY #60 tab 03/31/21 Allergies Allergy/AdvReac Type Severity Reaction Status Date / Time crab [CRAB] Allergy Severe Throat Verified 03/21/21 10:47 swelling animal dander [ANIMAL DANDER] Allergy Mild Sinus Verified 03/21/21 10:47 congestion, itching, eczema pollen extracts Allergy Unknown Sinus Verified 03/21/21 10:47 [POLLEN EXTRACTS] congestion, itching, eczema Review of Systems Review of Systems Narrative: GENERAL: Denies chills, fatigue, malaise, fever, sweats. HEENT: Denies sinus pain, ear pain, sore throat, difficulty swallowing, dizziness. RESPIRATORY: Denies dyspnea, cough, wheezing, hemoptysis, sputum. CARDIOVASCULAR: Denies chest pain, palpitations, orthopnea, edema, GASTROINTESTINAL: Denies nausea, vomiting, abdominal pain, diarrhea, constipation, melena. : Denies dysuria, frequency, incontinence, hematuria, urinary retention. MUSCULOSKELETAL: See HPI SKIN: Denies rash, skin lesions, or other NEUROLOGIC: Denies weakness, headache, numbness, change in speech, confusion, seizures, incoordination. PSYCHIATRIC: No concerning psychosocial issues. 12 point review of systems is negative except for those stated above Patient History Medical History Acquired insufficiency of aortic valve (10/08/15) Asthma Cellulitis (~02/2020) Chronic obstructive pulmonary disease (01/19/11) Cobalamin deficiency CTS (carpal tunnel syndrome) Duodenal ulcer Eczema Elevated d-dimer (~02/2020) Essential hypertension Former smoker Gastric ulcer History of malignant neoplasm of prostate Hypothyroidism (08/21/14) Idiopathic peripheral neuropathy Leukocytosis (01/19/11) Low back pain of over 3 months duration (11/15/16) Obesity (01/19/11) Olecranon bursitis of left elbow Osteoarthritis Prostate cancer (2010) Thrombocytosis (01/19/11) Unilateral primary osteoarthritis, right knee Weakness of right lower extremity (11/15/16) Surgical History History of arthroplasty of right knee (05/24/20) History of spinal fusion (2012) History of splenectomy (1975) Status post cataract extraction of both eyes with insertion of intraocular lens Status post wrist surgery (2011) Family History Brother Thyroid cancer Mother Breast cancer Father No problems noted. 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 Well-developed patient, in mild distress. HEAD: Atraumatic. Normocephalic. EYES: Pupils equal round and reactive. Extraocular motions intact. No scleral icterus. No injection or drainage. ENT: Nose without bleeding, purulent drainage. Throat without erythema, tonsillar hypertrophy or exudate. Airway patent. NECK: Trachea midline. Non tender CARDIOVASCULAR: Regular rate and rhythm without murmurs, gallops, or rubs. RESPIRATORY: decreased breath sounds, prolonged expiratory phase. No obvious respiratory distress. GASTROINTESTINAL: Abdomen soft, non-tender, nondistended. EXTREMITIES: obvious deformity of R ankle, closed isolated and N/V intact with surrounding ecchymosis. DP pulse noted on bedside dopple. Sensation in tact. BACK: Nontender without deformity or crepitance. No flank tenderness. NEURO: AOx3. SKIN: No rash or erythema of visible areas Initial Vital Signs Initial Vital Signs: Vital Signs Temperature 98.0 F 04/03/21 07:12 Pulse Rate 103 H 04/03/21 07:12 Blood Pressure 153/80 H 04/03/21 07:12 Pulse Oximetry 99 04/03/21 07:12 Course Course Course Narrative: Patient likely has had this injury for least a few days. It is closed, isolated and neurovascularly intact. Cap refill is appropriate, bedside ultrasound with Doppler demonstrates appropriate blood flow in the dorsalis pedis. Given the complexity of his medical history, including recent hospitalization with respiratory failure requiring intubation, NPO status, and also the duration that his injury is been present it is not appropriate nor necessaryto perform procedural sedation with reduction in the emergency department. Will be much more so safe and appropriate to do in the OR with Anesthesia and Orthopedics. Orders Ordered: ED Orders 04/03/21 07:09 XR ankle RT 2V Stat XR knee RT 1to2V Stat 04/03/21 07:26 COVID19 - ADMIT ([facility] [employer]STIGATOR swab/PCR) Stat 04/03/21 08:00 Complete Blood Count AUTO DIFF Stat Comprehensive Metabolic Panel Stat Magnesium Stat Sodium Chloride (Normal Saline 0.9%) 1,000 mls @ 125 mls/hr IV CONT MANAN Last Infusion: 04/03/21 08:36 Dose: 125 mls/hr Documented by: Admin: 04/03/21 08:24 Dose: 125 mls/hr Documented by: TAURUS Consultations Consultation #1: Dr. Chavez contacted early. She's reviewed the case and will aim to take to the OR around noon, pending medical clearance from medicine/anesthesia Consultation #2: Dr. Augustine happy to accept on her service Consultation #3: Dr. Cotton notified regarding case, based on our discussion he agrees that noon seems an appropriate time for his case Vital Signs Vital signs: Vital Signs - 8 hr 04/03/21 07:12 04/03/21 07:13 04/03/21 07:30 Temperature 98.0 F 98.6 F Pulse Rate 103 H 105 H 98 H Respiratory Rate 18 Blood Pressure 153/80 H 148/74 H 119/89 Pulse Oximetry 99 98 99 04/03/21 07:33 04/03/21 08:01 04/03/21 08:03 Temperature Pulse Rate 99 H 93 H Respiratory Rate Blood Pressure 141/71 H Pulse Oximetry 97 84 L MDM - Extremity Injury (Lower) Lab Data Result diagrams: 04/03/21 08:00 04/03/21 08:00 Labs: Lab Results 04/03/21 04/03/21 04/03/21 Range/Units 07: 08:00 08:00 WBC 13.1 H (4.5-11.0) X10^3/uL RBC 4.74 (4.5-5.9) X10^6/uL Hgb 11.8 L (13.5-17.5) g/dL Hct 38.8 L (41-53) % MCV 81.9 (80-100) fL MCH 24.9 L (26-34) PG MCHC 30.4 (30-36) % RDW 15.9 H (11.6-14.8) % Plt Count 497 H (150-400) X10^3/uL Neut % (Auto) 81.9 H (50-75) % Lymph % (Auto) 2.8 L (25-40) % Harrison % (Auto) 11.4 (3-14) % Eos % (Auto) 1.9 L (2-4) % Baso % (Auto) 2.0 (0-2) % Neut # (Auto) 71932 H (1879-9339) /uL Lymph # (Auto) 400 L (0540-7068) /uL Harrison # (Auto) 1500 H (0-900) /uL Eos # (Auto) 200 (0-450) /uL Baso # (Auto) 300 H (0-100) /uL WBC Morphology Comment RBC Morphology See below Target Cells 2+ H Sodium 136 L (137-145) mmol/L Potassium 3.8 (3.4-5.1) mmol/L Chloride 96 L (98-107) mmol/L Carbon Dioxide 39 H (22-32) mmol/L BUN 23 H (9-20) mg/dL Creatinine 0.70 (0.66-1.25) mg/dL Estimated GFR > 60.0 (>60) mL/min BUN/Creatinine Ratio 32.9 H (6-22) Glucose 104 (80-110) mg/dL Calcium 8.7 (8.4-10.2) mg/dL Magnesium 1.9 (1.6-2.3) mg/dL Total Bilirubin 0.6 (0.2-1.3) mg/dL AST 41 (17-59) IU/L ALT 52 H (<50) IU/L Alkaline Phosphatase 49 (38-126) U/L Total Protein 6.3 (6.3-8.2) g/dL Albumin 3.3 L (3.5-5.0) g/dL Globulin 3.0 (1.7-4.1) g/dL Albumin/Globulin Ratio 1.1 (1.0-2.8) SARS-CoV-2 (PCR) Negative (Negative) Imaging Data Extremity x-ray #1: Attestation: I personally reviewed and interpreted this imaging study as follows: My Impression: R ankle fracture dislocation Radiologist's Impression: Launch?[place] [address] XRay Report Signed Patient: Tanner Hauser MR#: [id number] : 1950 Acct:[id number] Age/Sex: 70 / M Date of Service: 04/03/21 Loc: ED Accession Number: [id number] ?? Procedure: XR ankle RT 2V Ordering Provider: Nehemias Parker D.O. PROCEDURE:? XR ANKLE RT 2V ? INDICATIONS:? ankle pain, deformity ? TECHNIQUE:? 3 views of the ankle were acquired.? ? COMPARISON:? [facility], , ANKLE 3 VIEWS RIGHT, 08/26/2015, 10:46. ? FINDINGS:? ? Bones:? The right ankle has oblique fracture of the distal fibula with displacement and widening of syndesmosis.? There is widening of the mortise medially the hindfoot demonstrates severe degenerative changes with osteophytes and subchondral sclerosis of the talonavicular joint. ? Soft tissues:? No tibiotalar joint effusion.? Achilles tendon appears normal.? ? ? IMPRESSION:? 1. Oblique fracture of the distal fibula with widening of the tibiofibular syndesmosis and medial displacement of the distal tibia and widening of the mortise. 2. Degenerative changes of the ankle and hindfoot.? ? ? Dictated by: Damaso Xiao M.D. on 04/03/2021 at 7:08 ? ? Approved by: Damaso Xiao M.D. on 04/03/2021 at 7:12 ? Extremity x-ray #2: Attestation: I personally reviewed and interpreted this imaging study as follows: My Impression: no acute process of R knee Radiologist's Impression: Launch?[place] [address] XRay Report Signed Patient: Tanner Hauser MR#: [id number] : 1950 Acct:[id number] Age/Sex: 70 / M Date of Service: 04/03/21 Loc: ED Accession Number: [id number] ?? Procedure: XR ankle RT 2V Ordering Provider: Nehemias Parker D.O. PROCEDURE:? XR ANKLE RT 2V ? INDICATIONS:? ankle pain, deformity ? TECHNIQUE:? 3 views of the ankle were acquired.? ? COMPARISON:? [facility], , ANKLE 3 VIEWS RIGHT, 08/26/2015, 10:46. ? FINDINGS:? ? Bones:? The right ankle has oblique fracture of the distal fibula with displacement and widening of syndesmosis.? There is widening of the mortise medially the hindfoot demonstrates severe degenerative changes with osteophytes and subchondral sclerosis of the talonavicular joint. ? Soft tissues:? No tibiotalar joint effusion.? Achilles tendon appears normal.? ? ? IMPRESSION:? 1. Oblique fracture of the distal fibula with widening of the tibiofibular syndesmosis and medial displacement of the distal tibia and widening of the mortise. 2. Degenerative changes of the ankle and hindfoot.? ? ? Dictated by: Damaso Xiao M.D. on 04/03/2021 at 7:08 ? ? Approved by: Damaso Xiao M.D. on 04/03/2021 at 7:12 ? Discharge Plan Departure Patient Disposition: Admitted As Inpatient Clinical Impression: Ankle fracture, right Admit Date/Time: 04/03/21 08:16 Admit Provider: Milady Augustine
[2021-04-03] MEDS: SODIUM CHLORIDE 0.9% 1,000 ML 125 ML IV ×3 (08:24→13:04)
[2021-04-03 08:26] LABS: COVID19 - ADMIT (NP swab/PCR) Negative (Negative)
[2021-04-03 08:34] LABS: Basophils Absolute Auto 300 /uL (0-100); Eosinophils Absolute Auto 200 /uL (0-450); Eosinophils Percent Auto 1.9 % (2-4); Hematocrit 38.8 % (41-53); Hemoglobin 11.8 g/dL (13.5-17.5); Lymphocytes Absolute Auto 400 /uL (1100-4500); Lymphocytes Percent Auto 2.8 % (25-40); Mean Corpuscular HGB Conc 30.4 % (30-36); Mean Corpuscular Hemoglobin 24.9 PG (26-34); Mean Corpuscular Volume 81.9 fL (80-100); Monocytes Absolute Auto 1500 /uL (0-900); Monocytes Percent Auto 11.4 % (3-14); Neutrophils Absolute Auto 10700 /uL (1500-7000); Neutrophils Percent Auto 81.9 % (50-75); Platelet Count 497 X10^3/uL (150-400); Red Blood Cell Count 4.74 X10^6/uL (4.5-5.9); Red Cell Distribution Width 15.9 % (11.6-14.8); White Blood Cell Count 13.1 X10^3/uL (4.5-11.0)
[2021-04-03 08:38] LABS: Alanine Aminotransferase 52 IU/L (<50); Albumin 3.3 g/dL (3.5-5.0); Albumin Globulin Ratio 1.1 (1.0-2.8); Alkaline Phosphatase 49 U/L (38-126); Aspartate Aminotransferase 41 IU/L (17-59); BUN Creatinine Ratio 32.9 (6-22); Bilirubin Total 0.6 mg/dL (0.2-1.3); Blood Urea Nitrogen 23 mg/dL (9-20); Calcium 8.7 mg/dL (8.4-10.2); Chloride 96 mmol/L (98-107); Estimated Glomerular Filt Rate > 60.0 mL/min (>60); Glucose 104 mg/dL (80-110); Magnesium 1.9 mg/dL (1.6-2.3); Potassium 3.8 mmol/L (3.4-5.1); Sodium 136 mmol/L (137-145); Total Protein 6.3 g/dL (6.3-8.2)
[2021-04-03 08:44] LABS: Carbon Dioxide 39 mmol/L (22-32); HEMOLYSIS 18 (0-50)
[2021-04-03 09:09] LABS: Add Manual Diff / Slide Review SLIDE REVIEW
[2021-04-03 09:10] LABS: Target Cells 2+
[2021-04-03] MEDS: PANTOPRAZOLE 40 MG VIAL IV (10:03)
[2021-04-03] MEDS: HYDROMORPHONE 0.5 MG INJ IV ×2 (10:04→20:28)
--- NOTE | 2021-04-03 10:45 | PM.CN ---
History of Present Illness Consult details Date Patient Seen: 04/03/21 Time Patient Seen: 10:46 Chief complaint: Ankle pain Reason for consult: Right ankle fracture Requesting provider: Nehemias Parker Narrative: The patient is a 70-year-old right male with a past medical history significant for severe COPD presents to the ER this morning with right ankle pain deformity bruising and swelling. He was in the hospital few days ago when he presented of time and in respiratory arrest and required admission with intubation for several days. He states that while he was in the hospital he did have some ankle pain and swelling but was thought to be a sprain and was not imaged. Since he got home he has had increasing pain swelling and now noted deformity of his right ankle with bruising. This prompted him to call EMS this morning where he was brought to the hospital demonstrated a displaced right ankle fibula fracture with clear space widening and lateral subluxation of the talus. He was indicated for surgical treatment of his ankle fracture and was admitted to the medicine service for optimization due to his medical comorbidities. He was also not a a candidate for emergency room sedation and a reduction given his respiratory comorbidities. Injury was closed. He does endorse some baseline neuropathy on the bottom of his feet with some decreased sensation up to the level of the ankle. Had several broken bones in the past including rib fractures in the last 2 years. No known previous bone density testing. Meds Home Medications and Allergies Home Medications Medication Instructions Recorded Confirmed Type cyanocobalamin (vitamin B-12) 1,000 mcg PO QDAY #0 04/04/17 04/03/21 History 1,000 mcg tablet,extended release diphenhydramine HCl 25 mg capsule 25 mg PO Q4-6H PRN 09/14/17 04/03/21 History (Allergy (diphenhydramine)) ciclesonide 160 mcg/actuation 2 puff INHALATION BID #6.1 gram 01/14/20 04/03/21 Rx aerosol inhaler (Alvesco) fluticasone propionate 50 2 spray NASAL BEDTIME PRN 02/19/20 04/03/21 History mcg/actuation nasal spray,suspension ipratropium 20 mcg-albuterol 100 1 puff INHALATION BID 02/19/20 04/03/21 History mcg/actuation mist for inhalation (Combivent Respimat) duloxetine 30 mg capsule,delayed 30 mg PO DAILY #90 cap 05/31/20 04/03/21 Rx release omeprazole 40 mg capsule,delayed 40 mg PO BID #60 cap 05/31/20 04/03/21 Rx release potassium chloride 20 mEq 20 meq PO DAILY #30 tab 05/31/20 04/03/21 Rx tablet,extended release(part/cryst) (Klor-Con M) levothyroxine 150 mcg tablet See Rx Instructions .ROUTE 06/07/20 04/03/21 Rx .COMPLEX #90 tab chlorthalidone 25 mg tablet 50 mg PO QDAY #180 tab 06/16/20 04/03/21 Rx tamsulosin 0.4 mg capsule (Flomax) 0.4 mg PO DAILY #5 cap 08/31/20 04/03/21 Rx albuterol sulfate 90 mcg/actuation 2 puff INHALATION Q4HP PRN #2 03/07/21 04/03/21 Rx aerosol inhaler (Proventil HFA) device triamcinolone acetonide 0.1 % 1 applic TOPICAL TID #80 g 03/21/21 04/03/21 Rx topical cream acetaminophen 325 mg tablet 650 mg PO TID PRN #60 tab 03/31/21 04/03/21 Rx ibuprofen 400 mg tablet 400 mg PO Q4HR PRN #60 tab 03/31/21 04/03/21 Rx prednisone 20 mg tablet 20 mg PO DAILY #60 tab 03/31/21 04/03/21 Rx Allergies Allergy/AdvReac Type Severity Reaction Status Date / Time crab [CRAB] Allergy Severe Throat Verified 03/21/21 10:47 swelling animal dander [ANIMAL DANDER] Allergy Mild Sinus Verified 03/21/21 10:47 congestion, itching, eczema pollen extracts Allergy Unknown Sinus Verified 03/21/21 10:47 [POLLEN EXTRACTS] congestion, itching, eczema Review of Systems Review of Systems Narrative: COPD requiring inhaler. Recent history of respiratory failure requiring intubation. Presented at thought incident obtunded and with ankle swelling no clear history of fall but suspected recent fall and now a displacement of ankle fracture. History arthritis no current headache shortness of breath or chest pain Exam Vital Signs (past 8 hours): - 04/03/21 07:12 04/03/21 07:13 04/03/21 07:30 Temperature 98.0 F 98.6 F Pulse Rate 103 H 105 H 98 H Respiratory Rate 18 Blood Pressure 153/80 H 148/74 H 119/89 Pulse Oximetry 99 98 99 04/03/21 07:33 04/03/21 08:01 04/03/21 08:03 Temperature Pulse Rate 99 H 93 H Respiratory Rate Blood Pressure 141/71 H Pulse Oximetry 97 84 L 04/03/21 08:20 04/03/21 08:45 Temperature 98.5 F Pulse Rate 82 88 Respiratory Rate 14 18 Blood Pressure 141/71 H 114/67 Pulse Oximetry 96 94 Oxygen Delivery Method Nasal Cannula Oxygen Flow Rate 1 Narrative Exam Narrative: Alert oriented male lying in his hospital bed. Mild discomfort. Breathing on room air. Lungs clear to auscultation. HEENT normocephalic atraumatic. Heart rate regular and rhythm. Decreased breath sounds on auscultation Moving bilateral upper extremities full range of motion no limitation No limitation of left lower extremity. Some decreased sensation stool of the foot. Palpable dorsalis pedis pulse demonstrates dorsiflexion plantar flexion Right lower extremity with external rotation at the ankle. There is ecchymosis anterior medially and laterally along the ankle. No ecchymosis directly over the malleoli but more posterior in a dependent fashion. There was a serous blister on the right heel that is large approximately 2 x 3 cm. No open wounds. No erythema or signs of infection. Moderate swelling. No other blisters. No pain at the knee. There is tenderness medial and laterally at the ankle. Palpable dorsalis pedis pulse. Decreased sensation most prominently on the plantar sole of the foot. Is able to wiggle toes and fire EHL remainder of motor exam limited due to pain Objective Imaging X-ray right ankle three views: My impression: Displaced oblique fracture distal fibula the lateral shift of the talus and mortise widening. Diffuse degenerative changes throughout the midfoot Radiologist's impression: IMPRESSION: 1. Oblique fracture of the distal fibula with widening of the tibiofibular syndesmosis and medial displacement of the distal tibia and widening of the mortise. 2. Degenerative changes of the ankle and hindfoot. Dictated by: Damaso Xiao M.D. on 04/03/2021 at 7:08 Labs Result Diagrams: 04/03/21 08:00 04/03/21 08:00 Labs: Laboratory Results - last 24 hr 04/03/21 04/03/21 04/03/21 07:26 08:00 08:00 WBC 13.1 H RBC 4.74 Hgb 11.8 L Hct 38.8 L MCV 81.9 MCH 24.9 L MCHC 30.4 RDW 15.9 H Plt Count 497 H Neut % (Auto) 81.9 H Lymph % (Auto) 2.8 L Wolfe % (Auto) 11.4 Eos % (Auto) 1.9 L Baso % (Auto) 2.0 Neut # (Auto) 74954 H Lymph # (Auto) 400 L Wolfe # (Auto) 1500 H Eos # (Auto) 200 Baso # (Auto) 300 H WBC Morphology Comment RBC Morphology See below Target Cells 2+ H Sodium 136 L Potassium 3.8 Chloride 96 L Carbon Dioxide 39 H BUN 23 H Creatinine 0.70 Estimated GFR > 60.0 BUN/Creatinine Ratio 32.9 H Glucose 104 Calcium 8.7 Magnesium 1.9 Total Bilirubin 0.6 AST 41 ALT 52 H Alkaline Phosphatase 49 Total Protein 6.3 Albumin 3.3 L Globulin 3.0 Albumin/Globulin Ratio 1.1 SARS-CoV-2 (PCR) Negative [facility] Medical History Acquired insufficiency of aortic valve (10/08/15) Asthma Cellulitis (~02/2020) Chronic obstructive pulmonary disease (01/19/11) Cobalamin deficiency CTS (carpal tunnel syndrome) Duodenal ulcer Eczema Elevated d-dimer (~02/2020) Essential hypertension Former smoker Gastric ulcer History of malignant neoplasm of prostate Hypothyroidism (08/21/14) Idiopathic peripheral neuropathy Leukocytosis (01/19/11) Low back pain of over 3 months duration (11/15/16) Obesity (01/19/11) Olecranon bursitis of left elbow Osteoarthritis Prostate cancer (2010) Thrombocytosis (01/19/11) Unilateral primary osteoarthritis, right knee Weakness of right lower extremity (11/15/16) Surgical History History of arthroplasty of right knee (05/24/20) History of spinal fusion (2012) History of splenectomy (1975) Status post cataract extraction of both eyes with insertion of intraocular lens Status post wrist surgery (2011) Family History Brother Thyroid cancer Mother Breast cancer Father No problems noted. 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: Religion travel history: recent () leisure activities: art (Photography), volunteer work and other (Traveling) Tobacco & Substance Use Smoking Status: Former smoker Tobacco: How many years used: 15 Smokeless tobacco user: other (Cigarettes) quit status: quit date established (1989) second hand exposure: No alcohol intake: former substance use type: does not use Assessment & Plan Assessment and plan (1) Ankle fracture, right: Status: Acute (2) COPD (chronic obstructive pulmonary disease): Status: Acute Plan Patient is a 70-year-old male with a displaced unstable closed right ankle fracture and significant comorbidities of COPD requiring recent hospitalization and mechanical ventilation. Due to his underlying medical problems he is not a candidate for ER conscious sedation and closed reduction. His skin is appropriate to allow definitive fixation of his unstable ankle fracture plan is to admit him to the hospital to the medicine team for optimization and to the OR for general anesthetic and open reduction internal fixation of his displaced operative ankle fracture. We discussed that he does have a serous blister on his heel and will need to be very careful to keep pressure off his heel. He will be floated with a great. We will decompress the serous blister with a needle during the surgery and have to monitor this closely. He does have a additional comorbidities of neuropathy which increase his risk of complications from a foot and ankle injury. He has no medication allergies to antibiotics and will get Ancef 2 g as a preoperative antibiotic. He is not on any anticoagulation currently. He will be NPO for surgery. Anticipate ORIF of the lateral malleolus and evaluation likely syndesmotic fixation as indicated based on intraoperative examination. The risks and benefits of the procedure have been discussed with the patient even opportunity to ask questions. The risks of surgery include but are not limited to infection, malunion, nonunion, persistence of pain, damage to nerves and blood vessels, posttraumatic arthritis, DVT, PE, cardiopulmonary complications and . The patient expressed a thorough understanding of the risks and benefits of surgery and has elected to proceed. Consent was signed. COVID-19 COVID-19 status: Negative Time Spent With Patient Time with patient: less than 30 minutes Critical Care time: I spent a total of [] minutes of critical care time on this patient's care today; this time is exclusive of procedural time.
--- NOTE | 2021-04-03 11:33 | SUR.OPER ---
Supine on padded OR bed, head on pillow, arms secured on padded arm boards at <90 degrees abduction. Right leg positioned on folded blankets and secured in place with tape. Rolled blanket positioned under patient's right hip.
--- NOTE | 2021-04-03 11:57 | PC.NURSE ---
Addendum entered by Ignacia Huston R.N. 04/03/21 17:44: Patient back from surgery at 1630, he is awake and conversing with his brother at this time in the room. Patient has a splint with cotton and evan wrap to his r.lower ankle and leg. He has feeling to leg and toes. Foot is warm, hard to feel pulses as the splint is on with evan wrap. He denies pain at this time and is toe touch weight bearing at this time. Patient voided 400cc around 1215 before his surgery. Tanner is visiting with his brother now, he has not issues with nausea. IVF infusing at 125cc/hr LR. Addendum entered by Ignacia Huston R.N. 04/03/21 12:03: Patient just taken down to surgery at 1155. Original Note: Assess- Patient to floor around 0845- He is alert and oriented x3, patient admitted to the floor and medication list updated. He has a fx r.fibula with bruising around his ankle, purple and yellow in color. Patient voided 400cc of yellow urine in the urinal. His r.ankle is turned outward with 3+ edema and 2+ edema to l.ankle and leg. He also has a large intact blister to the back of his r.heel. Patient has heel protectors on. He is able to move side to side in bed. Skin check done and can be seen under physical assessment.
[2021-04-03] MEDS: CEFAZOLIN 1 GM VIAL 2 GM IV (12:40)
[2021-04-03] MEDS: BUPIVACAINE 0.25% (PF) VIAL 30 ML INJ (12:57)
[2021-04-03] MEDS: EPINEPHrine 1 MG/ML 0.15 MG INJ (12:57)
[2021-04-03] MEDS: LACTATED RINGERS 1,000 ML 42 ML IV (13:04)
--- NOTE | 2021-04-03 13:13 | P.HP_ITS ---
History of Present Illness History of Present Illness Date Patient Seen: 04/03/21 Time Patient Seen: 12:00 Date of Onset of Symptoms: 03/29/21 Chief complaint: Ankle pain Narrative: This is a very pleasant 70-year-old male who is under the primary care of Dr. Vargas. He was hospitalized from March 27 through April 01 for hypercapnic respiratory failure due to worsening COPD in the increasing his oxygen which subsequently cauterized CO2 retention, confusion which led to intubation and hospitalization. He was intubated for approximately 3 days. He recover quite remarkably well and was discharged home on April 01. He had had some pain in his right ankle that was thought possibly to be related to pre hospitalization confusion possible trauma. But he was ambulating and working with physical therapy and tolerating this without significant difficulty but was complaining of pain in his right ankle. At home he has had increasing pain in our deformity of the right ankle. To the point that his pain was so much worse that he called EMS and was brought the ER for evaluation. An x-ray of the knee showed no changes in his total knee replacement hardware. At x-ray of his right ankle showed a distal fibular fracture now displaced with lateral sub with subluxation of the talus and unstable right ankle. Dr. Verde was consulted and graciously agreed to take patient to the ER for an open reduction and internal fixation of the surgical right ankle. He did not meet criteria for sedation and closed reduction in the ER. This is due to his multiple comorbidities including his recent respiratory failure with intubation. Since his discharge he states he feels his breathing continues to improve. He has not had any cough for fever or chest pain. He has not had any change in his bowel movements. He has not had any bright red blood per rectum or black tarry stools. Other than the right ankle pain he feels he is getting better. He was discharged home from the hospital on 20 mg of prednisone and no antibiotics. He briefly had antibiotics with his last hospitalization but these were discontinued due to no convincing evidence of overlying infection and cultures were negative. Past medical history: 1. Severe COPD, oxygen dependent at home 2. Previous history of tobacco abuse 3. Hypertension 4. Hypothyroidism 5. Depression 6. Distant history of prostate cancer 7. GERD with previous history of gastric ulcer 8. Osteoarthritis 9. Leukocytosis, unremarkable workup and present since 2015 10. Seborrhea Medications: See list. Patient was sent home from the hospital on 20 mg of prednisone Allergies no known drug allergies Past surgical history 1. Total knee replacement, right Health related behavior: Previous history of smoking Does not use alcohol on a regular basis Is sedentary Family history: Patient has a brother with thyroid cancer Patient's mom from breast cancer Father is of unknown history Social history: Patient lives alone here in the and a [place]. He has a brother who he is in touch with but does not live here in in a [place]. Review of systems: 12 point review of systems is negative other than above No urinary symptoms No fever No rashes No cough No worsening shortness of breath No headaches Patient History Medical History Acquired insufficiency of aortic valve (10/08/15) Asthma Cellulitis (~02/2020) Chronic obstructive pulmonary disease (01/19/11) Cobalamin deficiency CTS (carpal tunnel syndrome) Duodenal ulcer Eczema Elevated d-dimer (~02/2020) Essential hypertension Former smoker Gastric ulcer History of malignant neoplasm of prostate Hypothyroidism (08/21/14) Idiopathic peripheral neuropathy Leukocytosis (01/19/11) Low back pain of over 3 months duration (11/15/16) Obesity (01/19/11) Olecranon bursitis of left elbow Osteoarthritis Prostate cancer (2010) Thrombocytosis (01/19/11) Unilateral primary osteoarthritis, right knee Weakness of right lower extremity (11/15/16) Surgical History History of arthroplasty of right knee (05/24/20) History of spinal fusion (2012) History of splenectomy (1975) Status post cataract extraction of both eyes with insertion of intraocular lens Status post wrist surgery (2011) Family & Social History Family History Brother Thyroid cancer Mother Breast cancer Father No problems noted. Social History: household members none lives independently Yes caregiver/support person No Safety & Behavioral: Feels Safe in Current Yes Environment Been Physically Hurt or No Threatened By a Person Suicidal Ideation Description None Suicide Plan Description No Plan Tobacco & Substance use: Tobacco type cigarettes Smoking Status Former smoker alcohol intake former alcohol intake frequency holiday/special occasion Substance Use Type does not use Meds Home Medications and Allergies Home Medications Medication Instructions Recorded Confirmed Type cyanocobalamin (vitamin B-12) 1,000 mcg PO QDAY #0 04/04/17 04/03/21 History 1,000 mcg tablet,extended release diphenhydramine HCl 25 mg capsule 25 mg PO Q4-6H PRN 09/14/17 04/03/21 History (Allergy (diphenhydramine)) ciclesonide 160 mcg/actuation 2 puff INHALATION BID #6.1 gram 01/14/20 04/03/21 Rx aerosol inhaler (Alvesco) fluticasone propionate 50 2 spray NASAL BEDTIME PRN 02/19/20 04/03/21 History mcg/actuation nasal spray,suspension ipratropium 20 mcg-albuterol 100 1 puff INHALATION BID 02/19/20 04/03/21 History mcg/actuation mist for inhalation (Combivent Respimat) duloxetine 30 mg capsule,delayed 30 mg PO DAILY #90 cap 05/31/20 04/03/21 Rx release omeprazole 40 mg capsule,delayed 40 mg PO BID #60 cap 05/31/20 04/03/21 Rx release potassium chloride 20 mEq 20 meq PO DAILY #30 tab 05/31/20 04/03/21 Rx tablet,extended release(part/cryst) (Klor-Con M) levothyroxine 150 mcg tablet See Rx Instructions .ROUTE 06/07/20 04/03/21 Rx .COMPLEX #90 tab chlorthalidone 25 mg tablet 50 mg PO QDAY #180 tab 06/16/20 04/03/21 Rx tamsulosin 0.4 mg capsule (Flomax) 0.4 mg PO DAILY #5 cap 08/31/20 04/03/21 Rx albuterol sulfate 90 mcg/actuation 2 puff INHALATION Q4HP PRN #2 03/07/21 04/03/21 Rx aerosol inhaler (Proventil HFA) device triamcinolone acetonide 0.1 % 1 applic TOPICAL TID #80 g 03/21/21 04/03/21 Rx topical cream acetaminophen 325 mg tablet 650 mg PO TID PRN #60 tab 03/31/21 04/03/21 Rx ibuprofen 400 mg tablet 400 mg PO Q4HR PRN #60 tab 03/31/21 04/03/21 Rx prednisone 20 mg tablet 20 mg PO DAILY #60 tab 03/31/21 04/03/21 Rx Allergies Allergy/AdvReac Type Severity Reaction Status Date / Time crab [CRAB] Allergy Severe Throat Verified 04/03/21 12:17 swelling animal dander [ANIMAL DANDER] Allergy Mild Sinus Verified 04/03/21 12:17 congestion, itching, eczema pollen extracts Allergy Unknown Sinus Verified 04/03/21 12:17 [POLLEN EXTRACTS] congestion, itching, eczema Exam Vital Signs (past 8 hours): - 04/03/21 07:12 04/03/21 07:13 04/03/21 07:30 Temperature 98.0 F 98.6 F Pulse Rate 103 H 105 H 98 H Respiratory Rate 18 Blood Pressure 153/80 H 148/74 H 119/89 Pulse Oximetry 99 98 99 04/03/21 07:33 04/03/21 08:01 04/03/21 08:03 Temperature Pulse Rate 99 H 93 H Respiratory Rate Blood Pressure 141/71 H Pulse Oximetry 97 84 L 04/03/21 08:20 04/03/21 08:45 04/03/21 11:55 Temperature 98.5 F 98.4 F Pulse Rate 82 88 84 Respiratory Rate 14 18 18 Blood Pressure 141/71 H 114/67 111/64 Pulse Oximetry 96 94 96 Oxygen Delivery Method Nasal Cannula Oxygen Flow Rate 2 Objective Labs Result Diagrams: 04/03/21 08:00 04/03/21 08:00 Labs: Laboratory Results - last 24 hr 04/03/21 04/03/21 04/03/21 07:26 08:00 08:00 WBC 13.1 H RBC 4.74 Hgb 11.8 L Hct 38.8 L MCV 81.9 MCH 24.9 L MCHC 30.4 RDW 15.9 H Plt Count 497 H Neut % (Auto) 81.9 H Lymph % (Auto) 2.8 L Robeson % (Auto) 11.4 Eos % (Auto) 1.9 L Baso % (Auto) 2.0 Neut # (Auto) 22953 H Lymph # (Auto) 400 L Robeson # (Auto) 1500 H Eos # (Auto) 200 Baso # (Auto) 300 H WBC Morphology Comment RBC Morphology See below Target Cells 2+ H Sodium 136 L Potassium 3.8 Chloride 96 L Carbon Dioxide 39 H BUN 23 H Creatinine 0.70 Estimated GFR > 60.0 BUN/Creatinine Ratio 32.9 H Glucose 104 Calcium 8.7 Magnesium 1.9 Total Bilirubin 0.6 AST 41 ALT 52 H Alkaline Phosphatase 49 Total Protein 6.3 Albumin 3.3 L Globulin 3.0 Albumin/Globulin Ratio 1.1 SARS-CoV-2 (PCR) Negative Assessment & Plan Assessment & Plan narrative: 70-year-old male admitted for right ankle fracture, surgical Assessment 1. Unstable right ankle fracture with distal fibular fracture with medial displacement of tibia and lateral subluxation of talus Plan: Patient is mid to the hospital for further treatment and workup. He will be taken to the OR for surgical repair Appreciate anesthesia and Orthopedics PT per Ortho Assessment 2. Serous blister right heel Plan: He will undergo decompression in the OR. We will monitor closely and keep pressure off. May need wound care. Assessment 3. COPD, severe, oxygen dependent with recent hypercapnic respiratory failure overall stable Plan: Will continue outpatient inhalers including albuterol, ipratropium bromide and ciclesonide Will continue oxygen but not excluded to L nasal cannula. Patient does retain CO2. Will consult RT Will continue prednisone but due to surgery will give extra for stress dosing and will give 30 mg of prednisone today and tomorrow and then likely decrease to 20 mg Will continue to monitor for infection with no clear indication at this time. Assessment number for history of hypertension on chlorthalidone Plan: We will start tomorrow pending his blood pressures. We will continue to monitor Assessment 5. Hypothyroidism Plan: His last TSH was normal. We will continue his outpatient dosing 150 mcg a day Assessment 6. Depression with no acute issues Plan: Continue duloxetine Assessment 7. GERD with previous history of gastric ulcer Plan: Will treat with IV Protonix Assessment 8. DVT prophylaxis Plan: Will continue with Protonix Assessment 9. Distant history of prostate cancer without acute symptoms Plan: Will follow Assessment 10. Leukocytosis. Actually improved from last hospitalization and certainly affected by prednisone. Plan: Will continue to monitor Assessment 11. Hyponatremia, mild Plan: Will continue to monitor Assessment 12. Hypokalemia Plan: Continue with supplemental potassium these on an outpatient we will monitor electrolytes. Code status is full code 70 minutes is spent with patient including discussions with Dr. Haddad, Dr. Verde, nursing, evaluating his workup in and formulation and documentation. Time Spent With Patient Critical Care time: I spent a total of [] minutes of critical care time on this patient's care today; this time is exclusive of procedural time. Quality VTE Deep Vein Thrombosis/Pulmonary Embolism Present on Admission: No
--- NOTE | 2021-04-03 14:30 | PM.OP.1 ---
Operative Date/Time/Diagnoses Date of procedure: 04/03/21 Time of procedure: 12:50 Pre-op diagnosis: Displaced right lateral malleolus fracture Syndesmotic disruption Right heel blister Post-op diagnosis: other (Displaced lateral malleolus fracture, Chaput fracture distal tibia, syndesmotic disruption, right heel blister) Procedure & Clinicians Procedure: Open reduction internal fixation right ankle fracture CPT code 48542 Open reduction internal fixation right ankle syndesmosis CPT code 62111 Debridement heel blister unroofing CPT code 92566-92 Same procedure as scheduled: Yes Indications: Patient is a 70-year-old male with severe COPD who had a recent hospitalization involving respiratory failure and mechanical ventilation. During the hospitalization he complained of some ankle pain and swelling but was ambulatory with physical therapy. He later went home noticed increasing pain swelling ecchymosis and then deformity of his right ankle. He does not recall a fall but was obtunded when he presented with respiratory failure last week. This morning he noticed increasing pain swelling and deformity and called EMS. He was brought to [facility] where x-rays were taken demonstrating a displaced right ankle fracture with medial clear space widening and lateral talar shift. He was indicated for surgery to address his unstable right ankle fracture. He was additionally found to have a large serous blister on his heel. He was admitted to the medical service for management of his multiple medical comorbidities and indicated for Orthopedic surgery regarding his ankle. The risks and benefits of the procedure have been discussed with the patient given the opportunity to ask questions. The risks of surgery include but are not limited to infection, malunion, nonunion, persistence of pain, damage to nerves and blood vessels, posttraumatic arthritis, DVT, PE, cardiopulmonary complications and . The patient expressed a thorough understanding of the risks and benefits of surgery and has elected to proceed. Consent was signed. He was indicated for open reduction internal fixation of the lateral malleolus fracture with assessment of the syndesmosis and fixation as indicated Surgeon: Catherine Chavez Click Yes if Unassisted: Yes Anesthesia Type: General and Local Operative Notes Findings: Displaced long oblique lateral malleolus fracture at the level of the syndesmosis with displaced small Chaput fracture distal fibula with additional comminution and intra-articular fragmentation. Syndesmotic disruption. Chaput fracture was relatively small and nearly completely stripped and there were additional loose fragments that were palpable anterior lateral at the tibiotalar joint. Decision was made to sacrifice the Chaput fracture and gain access to the joint where a pituitary was used to remove the intra-articular fragments. Once this was completed fibula fracture was cleaned reduced and stabilized and then the syndesmosis was reduced, pinned and stabilized with syndesmotic screws. Large 3 cm x 3 cm serous blister covering the heel. This was debrided and unroofed. Xeroform and padding was applied Closure Type: primary Specimen(s): none sent Prosthetic devices, grafts, tissues, transplants, or devices: Distal fibula: [employer]hew 10 hole 1/3 tubular locking plate. 3.5 cortical screws 3x 12mm proximal. 3.5 locking screws distally. Syndesmotic fixation: with tricortical 3.5 cortical screw, and 4.7 osteopenia screw Applied: other (Splint) Estimated Blood Loss (mL): 30 Tourniquet time (min): 60 Procedure in detail: Patient was seen in the preoperative area the site of surgery marked informed consent confirmed. He is brought back to the operating room by the anesthesia team positioned supine on the operative table general anesthetic was administered. An ipsilateral thigh bump was placed. An ipsilateral well-padded thigh tourniquet was placed. An SCD was placed on the contralateral lower extremity. All bony prominences were well padded. The right lower extremities prepped and draped in the standard sterile fashion. A formal time-out procedure was performed confirming the patient's side and site of surgery administration of appropriate preoperative antibiotic. All were in agreement. Attention was turned to the right lower extremity and Esmarch was used for exsanguination and the tourniquet was raised on the thigh to 250 mmHg. Longitudinal incision along the fibula was made down through the skin subcutaneous tissue. Suppressive dissection was taken the level of the fibula and the long oblique fracture was identified. Using a curette and blade the fracture site was debrided. Additionally anterior laterally a Chaput fracture of the distal tibial was identified. With this retracted finger dissection into the joint was able to identify several small loose fracture fragments in the anterior tibiotalar joint. The small Chaput fragment was also small so this was sacrificed and the loose fragments were accessed into the joint and removed with pituitary rongeur. The joint was thoroughly irrigated. Next the distal fibula fracture was reduced with pointed reduction clamps taking care to obtain anatomic length and alignment rotation. This was then held in place with 2 pointed reduction clamps and a K-wire. Multiplanar intraoperative fluoroscopy with the mini C-arm was completed and interpreted indicating appropriate fracture reduction. Next a 10 hole 1/3 tubular locking plate from the Rahman and Nephew ankle Evos set was selected. This was provisionally fixed distally and proximally with the olive wires. Next nonlocking screws were placed proximally in the shaft and locking 3 5 screws distally to help with bite in the poor quality distal metaphyseal bone and to decrease plate prominence. Next clamps and K-wire and provisional olive wires were removed. Remainder of the cortical proximal screws were placed. Then using thumb pressure the syndesmosis was reduced and then pinned in place. This was checked on intraoperative fluoroscopy then 2 syndesmotic screws were placed this was 1x 3.5 tricortical screw and 1 x 4.7 osteopenia screw. Final fluoroscopic x-rays AP mortise and lateral were obtained intraoperatively confirming appropriate length and alignment and mortise reduction. There was no residual lateral tilt at this point the tourniquet was released and hemostasis was achieved. The wound was closed with 2-0 Vicryl 4-0 Monocryl and 3-0 nylon suture in a layered fashion. 30 cc of 0.25% Marcaine with epinephrine was injected for local anesthetic. Attention was then turned to the heel blister. During prepping the blister was decompressed. Was then unroofed carefully with a blade and pickups demonstrated a mostly serous blister but towards the plantar sole of the heel there was some dermal violation but no full-thickness ulceration. Xeroform was placed followed by gauze. And an ABD pad. A well-padded U splint was placed with gauze and bulky Hearn cotton and Webril and Ortho Glass. No hard material whatsoever was placed behind the heel. Additional egg crate was attached to the splint just proximal to the heel to float it. The patient was then awoken from anesthesia and taken to recovery room in good condition. There were no immediate complications from this procedure Complications: none Post-operative Condition: stable Disposition: PACU Plan for aftercare: Nonweightbearing to the right lower extremity for incision and heel blister healing. May place the foot down flat foot or toe-touch for balance. Once incisions are healed hopefully about 2 weeks postoperatively will try to progress with weight-bearing. Follow-up in 2 weeks in Orthopedic Clinic with Dr. Chavez. DVT prophylaxis: recommend Lovenox while in the hospital, can discharge on aspirin 325 mg enteric-coated daily. Must float heel
[2021-04-03] MEDS: ALBUTEROL/IPRATROPIUM 3 ML AMPUL INH ×3 (15:54→22:18)
[2021-04-03] MEDS: LACTATED RINGERS 1,000 ML 125 ML IV (16:44)
--- NOTE | 2021-04-03 16:51 | SUR.PHASEI ---
pacu: 1455-Patient recieved from OR via bed . hob supine. oxygen by nc. sats low 90-92. increased to 4l nc. non responding to directions. lungs essessiatially clear, diminished bases. iv site left hand patent. RT lower leg elevated with pillows/fob. ice behind rt knee. bulky splint/acewrap RLE-unable to palpate dp/pt due to dressing. RT toes pink warm and refill less than 2sec each. no xrays per Dr Chavez. 1500-arouses to much stimulation-open eyes. non verbal . nods yes/no briefly then returns to sleep.able to move toes rt foot and nods yes to normal sensation. oxygen changed to facemask due to low sats and hob elevated higher. 1530-remains somulent with brief moments of arouseableness. nods no to pain or nausea. neb t ordered by anesthesia to be given. 1545-more awake and verbalizing more. aware at hospital. aware which hospital, year, repeats year when asked month. 1600-meets criteria for transfer.off monitor after report to RN by phone. 1610-to room by bed with2l nc oxygen. Much more conversive and maintain alertness/awakefulness. no belongings. no family here per pt. CSM and dressing rt foot remain wnl.
[2021-04-03] MEDS: predniSONE 20 MG TABLET 30 MG PO (17:18)
[2021-04-03] MEDS: BUDESONIDE 0.5 MG/2 ML NEB INH (19:08)
[2021-04-03] MEDS: DOCUSATE 100 MG CAPSULE PO (20:28)
[2021-04-03] MEDS: CEFAZOLIN 2 GM/20 ML SYRINGE IV (20:29)
[2021-04-03] MEDS: OXYCODONE IR 5 MG TABLET PO ×2 (20:29→23:28)
--- NOTE | 2021-04-03 23:43 | PC.NURSE ---
SHIFT: Report received, care assumed 1914. A&Ox4. VSS, 2LNC, uses oxygen at home. C/o moderate pain to right ankle. Large splint to RLE with egg carton protectors over splint at ankle. +CMS, pedal pulse palpable under splint. Pt on bedrest tonight until he has worked with PT tomorrow. Able to reposition self in bed. Using urinal, bedpan.
[2021-04-04] VITALS (10 sets, daily range): BP systolic 115–135; BP diastolic 55–73; PULSE 71–93; RESP 14–18; TEMP 36.8–37.2; O2SAT 93–98
[2021-04-04] MEDS: LACTATED RINGERS 1,000 ML 125 ML IV (01:56)
[2021-04-04] MEDS: OXYCODONE IR 5 MG TABLET PO ×5 (04:24→21:39)
[2021-04-04 04:46] LABS: Add Manual Diff / Slide Review NO; Basophils Absolute Auto 100 /uL (0-100); Basophils Percent Auto 0.4 % (0-2); Eosinophils Absolute Auto 0 /uL (0-450); Eosinophils Percent Auto 0.1 % (2-4); Hematocrit 36.1 % (41-53); Lymphocytes Absolute Auto 400 /uL (1100-4500); Lymphocytes Percent Auto 3.2 % (25-40); Mean Corpuscular HGB Conc 30.3 % (30-36); Mean Corpuscular Hemoglobin 24.7 PG (26-34); Mean Corpuscular Volume 81.5 fL (80-100); Monocytes Absolute Auto 1200 /uL (0-900); Monocytes Percent Auto 8.7 % (3-14); Neutrophils Absolute Auto 12400 /uL (1500-7000); Neutrophils Percent Auto 87.6 % (50-75); Platelet Count 461 X10^3/uL (150-400); Red Blood Cell Count 4.43 X10^6/uL (4.5-5.9); Red Cell Distribution Width 16.7 % (11.6-14.8); White Blood Cell Count 14.1 X10^3/uL (4.5-11.0)
[2021-04-04 04:59] LABS: Alanine Aminotransferase 38 IU/L (<50); Albumin 3.1 g/dL (3.5-5.0); Albumin Globulin Ratio 1.1 (1.0-2.8); Alkaline Phosphatase 48 U/L (38-126); Aspartate Aminotransferase 31 IU/L (17-59); BUN Creatinine Ratio 33.8 (6-22); Bilirubin Total 0.4 mg/dL (0.2-1.3); Blood Urea Nitrogen 24 mg/dL (9-20); Calcium 8.4 mg/dL (8.4-10.2); Chloride 96 mmol/L (98-107); Estimated Glomerular Filt Rate > 60.0 mL/min (>60); Globulin 2.9 g/dL (1.7-4.1); Glucose 199 mg/dL (80-110); HEMOLYSIS < 15 (0-50); Potassium 4.1 mmol/L (3.4-5.1); Sodium 134 mmol/L (137-145)
[2021-04-04 05:05] LABS: Carbon Dioxide 37 mmol/L (22-32)
[2021-04-04] MEDS: ALBUTEROL/IPRATROPIUM 3 ML AMPUL INH ×4 (06:59→22:24)
[2021-04-04] MEDS: BUDESONIDE 0.5 MG/2 ML NEB INH ×2 (07:00→19:51)
[2021-04-04] MEDS: CEFAZOLIN 2 GM/20 ML SYRINGE IV (07:27)
[2021-04-04] MEDS: LEVOTHYROXINE 150 MCG TABLET PO (07:27)
--- NOTE | 2021-04-04 07:54 | PM.PNPO.1 ---
Subjective Subjective Date Patient Seen: 04/04/21 Time Patient Seen: 07:57 Interval history: Patient is complaining of mild right ankle pain this morning. Overall he is feeling well. He denies any new numbness or tingling, but does have baseline neuropathy. Note sensation in 1st dorsal web space are symmetrical. No fevers, chills, night sweats, although his white cell count is elevated, but down trending. Exam Vital Signs (past 8 hours): - 04/04/21 04:24 04/04/21 07:12 Temperature 98.5 F 99.0 F Pulse Rate 88 81 Respiratory Rate 14 14 Blood Pressure 131/72 115/55 L Pulse Oximetry 97 98 Oxygen Delivery Method Nasal Cannula Oxygen Flow Rate 2 Narrative Exam Narrative: Pleasant 70-year-old male, resting comfortably in bed, no acute distress. Dressing and splint are clean, dry, intact. He is able to wiggle his toes. Calves are soft and nontender to palpation. His heel is offloaded with padding. Objective Labs Result Diagrams: 04/04/21 04:25 04/04/21 04:25 Labs: Laboratory Results - last 24 hr 04/03/21 04/03/21 04/03/21 07:26 08:00 08:00 WBC 13.1 H RBC 4.74 Hgb 11.8 L Hct 38.8 L MCV 81.9 MCH 24.9 L MCHC 30.4 RDW 15.9 H Plt Count 497 H Neut % (Auto) 81.9 H Lymph % (Auto) 2.8 L [place] % (Auto) 11.4 Eos % (Auto) 1.9 L Baso % (Auto) 2.0 Neut # (Auto) 86488 H Lymph # (Auto) 400 L [place] # (Auto) 1500 H Eos # (Auto) 200 Baso # (Auto) 300 H WBC Morphology Comment RBC Morphology See below Target Cells 2+ H Sodium 136 L Potassium 3.8 Chloride 96 L Carbon Dioxide 39 H BUN 23 H Creatinine 0.70 Estimated GFR > 60.0 BUN/Creatinine Ratio 32.9 H Glucose 104 Calcium 8.7 Magnesium 1.9 Total Bilirubin 0.6 AST 41 ALT 52 H Alkaline Phosphatase 49 Total Protein 6.3 Albumin 3.3 L Globulin 3.0 Albumin/Globulin Ratio 1.1 SARS-CoV-2 (PCR) Negative 04/04/21 04/04/21 04:25 04:25 WBC 14.1 H RBC 4.43 L Hgb 11.0 L Hct 36.1 L MCV 81.5 MCH 24.7 L MCHC 30.3 RDW 16.7 H Plt Count 461 H Neut % (Auto) 87.6 H Lymph % (Auto) 3.2 L [place] % (Auto) 8.7 Eos % (Auto) 0.1 L Baso % (Auto) 0.4 Neut # (Auto) 14203 H Lymph # (Auto) 400 L [place] # (Auto) 1200 H Eos # (Auto) 0 Baso # (Auto) 100 WBC Morphology Comment RBC Morphology Target Cells Sodium 134 L Potassium 4.1 Chloride 96 L Carbon Dioxide 37 H BUN 24 H Creatinine 0.71 Estimated GFR > 60.0 BUN/Creatinine Ratio 33.8 H Glucose 199 H Calcium 8.4 Magnesium Total Bilirubin 0.4 AST 31 ALT 38 Alkaline Phosphatase 48 Total Protein 6.0 L Albumin 3.1 L Globulin 2.9 Albumin/Globulin Ratio 1.1 SARS-CoV-2 (PCR) [facility] Medical History Acquired insufficiency of aortic valve (10/08/15) Asthma Cellulitis (~02/2020) Chronic obstructive pulmonary disease (01/19/11) Cobalamin deficiency CTS (carpal tunnel syndrome) Duodenal ulcer Eczema Elevated d-dimer (~02/2020) Essential hypertension Former smoker Gastric ulcer History of malignant neoplasm of prostate Hypothyroidism (08/21/14) Idiopathic peripheral neuropathy Leukocytosis (01/19/11) Low back pain of over 3 months duration (11/15/16) Obesity (01/19/11) Olecranon bursitis of left elbow Osteoarthritis Prostate cancer (2010) Thrombocytosis (01/19/11) Unilateral primary osteoarthritis, right knee Weakness of right lower extremity (11/15/16) Surgical History History of arthroplasty of right knee (05/24/20) History of spinal fusion (2012) History of splenectomy (1975) Status post cataract extraction of both eyes with insertion of intraocular lens Status post wrist surgery (2011) Family History Brother Thyroid cancer Mother Breast cancer Father No problems noted. 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: [employer] travel history: recent () leisure activities: art (Photography), volunteer work and other (Traveling) Smoking Status: Former smoker Tobacco: How many years used: 15 Smokeless tobacco user: other (Cigarettes) quit status: quit date established (1989) second hand exposure: No alcohol intake: former substance use type: does not use Assessment & Plan Post-op Postoperative Procedures: Procedures Operation Date: 04/03/21 12:15 Actual Procedure Side Surgeon p ORIF Ankle Fracture Right Catherine Chavez MD Postoperative day: 1 Postoperative status narrative: Stable status post right ankle ORIF Postoperative plan narrative: -Nonweightbearing to the right lower extremity for incision and heel blister healing. May place the foot down flat foot or toe-touch for balance. Once incisions are healed hopefully about 2 weeks postoperatively will try to progress with weight-bearing. -Follow-up in 2 weeks in Orthopedic Clinic with Dr. Chavez. -DVT prophylaxis: recommend Lovenox while in the hospital, can discharge on aspirin 325 mg enteric-coated daily. -Must float heel - DC based on medicine recommendation Quality VTE Deep Vein Thrombosis/Pulmonary Embolism Present on Admission: No
[2021-04-04] MEDS: FLUTICASONE 120 SPRAY/16 GM SPRAY.SUSP NASAL (08:24)
[2021-04-04] MEDS: ENOXAPARIN 40 MG/0.4 ML SYRINGE SUBCUT ×2 (08:24→20:38)
[2021-04-04] MEDS: predniSONE 20 MG TABLET 30 MG PO (08:25)
[2021-04-04] MEDS: TAMSULOSIN 0.4 MG CAPSULE PO (08:25)
[2021-04-04] MEDS: DOCUSATE 100 MG CAPSULE PO ×2 (08:25→20:38)
[2021-04-04] MEDS: CYANOCOBALAMIN (VITAMIN B-12) 500 MCG TABLET 1000 MCG PO (08:26)
[2021-04-04] MEDS: PANTOPRAZOLE 40 MG VIAL IV (08:26)
[2021-04-04] MEDS: DULOXETINE 30 MG CAPSULE PO (08:27)
[2021-04-04] MEDS: POTASSIUM CHLORIDE 20 MEQ TAB PO (08:27)
--- NOTE | 2021-04-04 08:49 | P.PN_ITS ---
Subjective Subjective Date Patient Seen: 04/04/21 Time Patient Seen: 08:30 Interval history: Pt is overall feeling well this morning. He reports having moderate right ankle pain immediately prior to taking his next oxycodone dose. He had a BM yesterday. He denies any chest pain or worsening SOB. He would like to discharge home tomorrow, and states he has arranged to have someone sleep at his house with him. He is working on getting someone there during the days. He states he has been sleeping in his living room for the past year nearly, in a recliner. He does not really use his stairs at home. Exam Vital Signs (past 8 hours): - 04/04/21 04:24 04/04/21 07:12 Temperature 98.5 F 99.0 F Pulse Rate 88 81 Respiratory Rate 14 14 Blood Pressure 131/72 115/55 L Pulse Oximetry 97 98 Oxygen Delivery Method Nasal Cannula Oxygen Flow Rate 2 Narrative Exam Narrative: Gen: NAD, sitting comfortably in bed, appears well CV: RRR, no murmurs Resp: clear to auscultation bilaterally Abd: soft, nontender, nondistended, normoactive bowel sounds Ext: left LE with no sweeling, right LE wrapped - good capillary refill in toes Objective Labs Result Diagrams: 04/04/21 04:25 04/04/21 04:25 Labs: Laboratory Results - last 24 hr 04/03/21 04/04/21 04/04/21 08:00 04:25 04:25 WBC 14.1 H RBC 4.43 L Hgb 11.0 L Hct 36.1 L MCV 81.5 MCH 24.7 L MCHC 30.3 RDW 16.7 H Plt Count 461 H Neut % (Auto) 81.9 H 87.6 H Lymph % (Auto) 2.8 L 3.2 L [place] % (Auto) 11.4 8.7 Eos % (Auto) 1.9 L 0.1 L Baso % (Auto) 2.0 0.4 Neut # (Auto) 68192 H 59386 H Lymph # (Auto) 400 L 400 L [place] # (Auto) 1500 H 1200 H Eos # (Auto) 200 0 Baso # (Auto) 300 H 100 WBC Morphology Comment RBC Morphology See below Target Cells 2+ H Sodium 134 L Potassium 4.1 Chloride 96 L Carbon Dioxide 37 H BUN 24 H Creatinine 0.71 Estimated GFR > 60.0 BUN/Creatinine Ratio 33.8 H Glucose 199 H Calcium 8.4 Total Bilirubin 0.4 AST 31 ALT 38 Alkaline Phosphatase 48 Total Protein 6.0 L Albumin 3.1 L Globulin 2.9 Albumin/Globulin Ratio 1.1 [facility] Medical History Acquired insufficiency of aortic valve (10/08/15) Asthma Cellulitis (~02/2020) Chronic obstructive pulmonary disease (01/19/11) Cobalamin deficiency CTS (carpal tunnel syndrome) Duodenal ulcer Eczema Elevated d-dimer (~02/2020) Essential hypertension Former smoker Gastric ulcer History of malignant neoplasm of prostate Hypothyroidism (08/21/14) Idiopathic peripheral neuropathy Leukocytosis (01/19/11) Low back pain of over 3 months duration (11/15/16) Obesity (01/19/11) Olecranon bursitis of left elbow Osteoarthritis Prostate cancer (2010) Thrombocytosis (01/19/11) Unilateral primary osteoarthritis, right knee Weakness of right lower extremity (11/15/16) Surgical History History of arthroplasty of right knee (05/24/20) History of spinal fusion (2012) History of splenectomy (1975) Status post cataract extraction of both eyes with insertion of intraocular lens Status post wrist surgery (2011) Family History Brother Thyroid cancer Mother Breast cancer Father No problems noted. 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 1.? POD #1 s/p right ankle ORIF for unstable right ankle fracture: - Appreciate care from Ortho - Continue Lovenox while in hospital, 325mg Aspirin at d/c - Non weight-bearing until f/u appt in 2 weeks - Oxycodone q3hr PRN for pain control - PT/OT to evaluate for safe d/c planning today 2. Serous blister right heel: s/p decompression in the OR 3.? COPD, severe, oxygen dependent with recent hypercapnic respiratory failure: Stable on 2L O2 - Will continue outpatient inhalers including albuterol, ipratropium bromide and ciclesonide - Continue oxgyen supplementation as needed - RT consulted - Decrease to 20mg Prednisone starting tomorrow 4: HTN: Stable - Continue home Chlorthalidone 5. Hypothyroidism - His last TSH was normal.? We will continue his outpatient dosing 150 mcg a day 6. Depression - Continue home duloxetine 7. GERD - IV Protonix while in hospital 8. Hypokalemia: Stable - Continue outpatient potassium supplement 9. Hyperglycemia: Suspect due to steroids - Sliding scale insulin coverage while in the hospital Code: Full Diet: Heart healthy DVT ppx: Lovenox Dispo: Pending evaluation from PT/OT. Pt is very motivated to return home, working to arrange 24hr/day care. Question safety, especially with only toe touch, oxygen cords, etc. Will have care management research rehab facilities as well. Should be stable for d/c tomorrow. Time Spent With Patient Critical Care time: I spent a total of [] minutes of critical care time on this patient's care today; this time is exclusive of procedural time. Quality VTE Deep Vein Thrombosis/Pulmonary Embolism Present on Admission: No
[2021-04-04] MEDS: CHLORTHALIDONE 25 MG TABLET 50 MG PO (09:17)
--- NOTE | 2021-04-04 10:45 | PT.IIE ---
Current Diagnoses Chronic obstructive pulmonary disease, unspecified (04/03/21) Other fracture of right lower leg, initial encounter for closed fracture (04/03/21) Surgery Performed Operation Date: 04/03/21 12:15 Actual Procedures p ORIF Ankle Fracture(Right) - Catherine Chavez MD Surgical History (Last Reviewed 04/04/21 @ 07:59 by Sonia Enriquez PA-C) History of spinal fusion (2012) History of splenectomy (1975) Medical History (Last Reviewed 04/04/21 @ 07:59 by Sonia Enriquez PA-C) Acquired insufficiency of aortic valve (10/08/15) Asthma Cellulitis (~02/2020) Chronic obstructive pulmonary disease (01/19/11) Cobalamin deficiency CTS (carpal tunnel syndrome) Duodenal ulcer Eczema Elevated d-dimer (~02/2020) Essential hypertension Former smoker Gastric ulcer History of malignant neoplasm of prostate Hypothyroidism (08/21/14) Idiopathic peripheral neuropathy Leukocytosis (01/19/11) Low back pain of over 3 months duration (11/15/16) Obesity (01/19/11) Olecranon bursitis of left elbow Osteoarthritis Prostate cancer (2010) Thrombocytosis (01/19/11) Unilateral primary osteoarthritis, right knee Weakness of right lower extremity (11/15/16) Physical Therapy Inpatient Evaluation/Re-Eval M1 PT/OT-IP Prior Functional Status Start: 04/04/21 08:47 Freq: NEEDED Status: Active Protocol: Document 04/04/21 10:45 AW (Rec: 04/04/21 13:20 AW [id number]) Medical Review Prior Functional Status Medical History Reviewed Yes Communication Pt is able to make his needs known. Mobility and Gait Pt reports modified independence with SPC at baseline. However, following recent hospitalization with COPD exacerbation, pt went home using FWW. Social History Household Members none Living Arrangements House Number of Floors (Floors) Two Floors Number of Stairs To Enter/Railing? Pt is able to stay on the main level at home but has 1 step with no rail and 2 steps with R rail to enter the home. 2 flights of stairs to get to second level with R rail on first flight and B rails on second flight. Home Environment Standard Height Toilet,Tub/ Shower Home Equipment Front Wheel Walker,Straight Cane,Shower Seat without Backrest,Hand Held Shower Additional Social History Comment Pt lives alone but says he can afford to hire assist if going home. M2 PT-IP Current Condition Start: 04/04/21 08:47 Freq: NEEDED Status: Active Protocol: Document 04/04/21 10:45 AW (Rec: 04/04/21 11:32 AW [id number]) Physical Therapy Current Condition Current Condition Evaluation Date 04/04/21 Treatment Diagnosis R distal fibula fx s/p ORIF; NWB RLE; difficulty in walking Onset Date 04/03/21 M3 PT-IP Subjective Start: 04/04/21 08:47 Freq: NEEDED Status: Active Protocol: Document 04/04/21 10:45 AW (Rec: 04/04/21 11:32 AW [id number]) Subjective Physical Therapy Visit Type Type Initial Evaluation Visit Start Time 10:13 Visit Stop Time 10:45 Total Visit Minutes 32 Notes Co-eval with OT due to need for increased assist with mobility. Number of TEXTILE SCREEN MAKER Visits 0 Physical Therapy Visit Comments Patient Comments Pt is willing to participate with PT Patient Goals Pt prefers to go home with assist but is open to SNF rehab if he can get a private room. Therapy Pain Assessment Pain When Pain Assessed During Mobility Pain Present Pain Present Pain Reported Location Right Ankle Intensity 7 Scale Used 7/10 at rest; unchanged with mobility Pain Management Techniques Elevation,Re-positioning, Timing of Activity with Medications M4 PT-IP Mobility and Gait Start: 04/04/21 08:47 Freq: NEEDED Status: Active Protocol: Document 04/04/21 10:45 AW (Rec: 04/04/21 11:32 AW [id number]) PT-Bed Mobility Assessment Supine to Sit Supine to Sit Minimal Assistance,1 Person Assistance,Head of Bed Elevated,Bedrails Scooting Scooting to Edge of Bed Contact Guard Assistance PT-Transfer Assessment Sit to and From Stand Sit to and from Stand Moderate Assistance,2 Person Assistance,Use of Upper Extremities Equipment Transfer Assistive Device Gait Belt,Front Wheeled Walker Orthotic/Prosthetic Devices or Brace: No Transfers Transfer Destination Chair,Bedside Commode Transfer Technique Stand Step Pivot Transfer Ability Level of Assist Moderate Assistance,1 Person Assistance,2 Person Assistance ,Use of Upper Extremities Comments Mobility Comments Pt was lying in bed as PT arrived. With HOB elevated, BP was 136/75 HR 85 SpO2 95% on 2L/min via NC. He was able to lift his RLE and pivot toward the right side of the bed min A x 1 and needed CGA to scoot forward. PT reviewed WB status with pt and demonstrated pivot transfer with TTWB RLE. With cues for technique, pt stood mod A x 2 and used FWW to pivot 90 degrees to his left, transferring to [facility]. Pt reported feeling woozy. BP was 141/87 HR 106 SpO2 100%. Symptoms cleared. When finished with the commode, pt again stood and pivoted 180 degrees to his right with FWW mod A x 1, transferring to the chair with assist for safe descent. As pt fatigued during transfer, weightbearing RLE was questionable. Pt was positioned on the chair with call light. OT remained as PT departed. Gait Assessment Comments Gait Comments Pt able to pivot on LLE and maintain TTWB RLE during 90- degree transfers. With longer standing, pt's weightbearing was more questionable. Did not progress to gait at this encounter. PT-Balance Assessment Sitting Balance and Reactions Static Sitting Balance Ability Normal Dynamic Sitting Balance Ability Normal Standing Balance and Reactions Static Standing Balance Ability Good Dynamic Standing Balance Ability Fair Device Used FWW Balance Tests Single Limb Standing able to maintain TTWB RLE M5 PT-IP Objective Assessments Start: 04/04/21 08:47 Freq: NEEDED Status: Active Protocol: Document 04/04/21 10:45 AW (Rec: 04/04/21 11:36 AW [id number]) Orientation Orientation/Cognition Level of Alertness Alert Orientation Name,Day of Week,Place, Situation Language Function Ability No Deficits Noted Safety Awareness Decreased Safety Awareness Gross Range of Motion Lower Extremity ROM Assessment Right Impaired Strength Lower Extremity Strength Assessment Right Impaired Hip 4/5 Knee 4+/5 Ankle NT Comments Strength Comments LLE grossly 4+/5 Sensation Assessment Sensation Gross Sensation Right LE Impaired,Left LE Impaired Comments Sensation Comments Neuropathy affects sensation distal BLE to ~10 cm above ankles and greatest deficits on plantar surfaces of feet. Muscle Tone Muscle Tone WNL Yes M6 PT-IP Treatment Start: 04/04/21 08:47 Freq: NEEDED Status: Active Protocol: Document 04/04/21 10:45 AW (Rec: 04/04/21 11:33 AW [id number]) Physical Therapy Treatment Education Education Provided Weight Bearing Status,Safety Other Treatments Other Treatment Performed Educated pt on weightbearing status, safe use of FWW, and equipment needed for home if pt declines SNF recommendation . M7 PT-IP Assessment and Plan Start: 04/04/21 08:47 Freq: NEEDED Status: Active Protocol: Document 04/04/21 10:45 AW (Rec: 04/04/21 12:31 AW [id number]) PT Summary Assessment and Plan Potential Rehabilitation Potential Good Status of Condition at Evaluation Unstable Summary Impairments Pain,ROM,Strength,Balance, Sensation,Bed Mobility, Transfers,Gait Assessment Summary Tanner Vincent is a 70 yo man who was admitted last week with COPD exacerbation and was mechanically vented. He discharged with home health but was re-admitted with worsening ankle pain. Imaging revealed distal right fibula fracture and pt is now POD1 s/ p ORIF. His weightbearing status is NWB/TTWB RLE. At baseline, pt is modified independent for mobility with use of SPC for outdoor ambulation. On evaluation, pt required min assist with bed mobility and 1-2 person mod assist for pivot transfers. Stairs are a barrier to home discharge. PT recommends SNF rehab to improve pt's strength and mobility independence. If pt declines SNF, he will need 24/7 assist for mobility and home health services. Goals Bed Mobility Goal Standby Assistance Transfer Goal Standby Assistance,Front Wheeled Walker Gait Goal Minimal Assistance,Front Wheel Walker Gait Distance 25 Other Goals - up/down 1 step with no rail and 2 steps with unilateral rail min assist Days to Meet Goals 10 Frequency of Treatment Frequency Of Treatment Twice a Day Treatment Plan Physical Therapy Treatment Plan Bed Mobility Training,Transfer Training,Gait Training, Therapeutic Exercise,Balance Retraining,Post Op Education, Discharge Planning,Hot or Cold Pack Other Recommendations and Next Treatment transfers; gait with chair Focus follow; set up caregiver training if pt going home Weight Bearing Status Weight Bearing Status Touch Down Weight Bearing Allowed Weight Bearing Amount (enter % TTWB RLE or #) (%) Recommendations To Nursing Amount of Assist Needed 2 Person Assist Discharge Recommendations PT Discharge Recommendations Home with 24/7 Assist Available,Home Health,SNF Rehab,Home vs SNF Equipment Needed for Home Before wheelchair, BSC, hospital bed, Discharge ramp Transportation Needs at Discharge Wheelchair/Cabulance
--- NOTE | 2021-04-04 10:54 | OT.IP.EVAL ---
Current Diagnoses Chronic obstructive pulmonary disease, unspecified (04/03/21) Other fracture of right lower leg, initial encounter for closed fracture (04/03/21) Surgery Performed Operation Date: 04/03/21 12:15 Actual Procedures p ORIF Ankle Fracture(Right) - Catherine Chavez MD Past Medical History (Last Reviewed 04/04/21 @ 07:59 by Sonia Enriquez PA-C) Acquired insufficiency of aortic valve (10/08/15) Asthma Cellulitis (~02/2020) Chronic obstructive pulmonary disease (01/19/11) Cobalamin deficiency CTS (carpal tunnel syndrome) Duodenal ulcer Eczema Elevated d-dimer (~02/2020) Essential hypertension Former smoker Gastric ulcer History of arthroplasty of right knee (05/24/20) History of malignant neoplasm of prostate Hypothyroidism (08/21/14) Idiopathic peripheral neuropathy Leukocytosis (01/19/11) Low back pain of over 3 months duration (11/15/16) Obesity (01/19/11) Olecranon bursitis of left elbow Osteoarthritis Prostate cancer (2010) Status post cataract extraction of both eyes with insertion of intraocular lens Status post wrist surgery (2011) Thrombocytosis (01/19/11) Unilateral primary osteoarthritis, right knee Weakness of right lower extremity (11/15/16) Surgical History (Last Reviewed 04/04/21 @ 07:59 by Sonia Enriquez PA-C) History of arthroplasty of right knee (05/24/20) History of spinal fusion (2012) History of splenectomy (1975) Status post cataract extraction of both eyes with insertion of intraocular lens Status post wrist surgery (2011) Occupational Therapy Inpatient Evaluation/Re-Eval M1 PT/OT-IP Prior Functional Status Start: 04/04/21 08:47 Freq: NEEDED Status: Active Protocol: Document 04/04/21 12:57 [facility] (Rec: 04/04/21 13:21 [facility] [id number]) Medical Review Prior Functional Status Communication Independent Mobility and Gait Pt was not able to mobilize much due to right ankle pain right after discharge from the hospital last time. Activities of Daily Living and IADL's Prior to previous hospitalization pt was able to completely care for himself with all ADL,IADL, and drives. Social History Household Members none Living Arrangements House Number of Floors (Floors) Two Floors Number of Stairs To Enter/Railing? 1 small step with no rails and then 2 steps with left rail going up to get into the house . Home Environment Standard Height Toilet,Tub/ Shower Home Equipment Front Wheel Walker,Straight Cane,Shower Seat without Backrest,Hand Held Shower,Lift Recliner Additional Social History Comment Pt sleeps in his lift recliner . M2 OT-IP Current Condition Start: 04/04/21 12:56 Freq: Status: Active Protocol: Document 04/04/21 12:57 [facility] (Rec: 04/04/21 13:21 [facility] [id number]) Occupational Therapy Current Condition Current Condition Evaluation Date 04/04/21 Treatment Diagnosis Right ankle distal fibular fx, S/P right ankle ORIF, decreased mobility Diagnosis Onset Date 04/03/21 Weight Bearing Status Weight Bearing Status Touch Down Weight Bearing Allowed Weight Bearing Amount (enter % RLE toe touch for balance. or #) (%) M3 OT- IP Subjective and Pain Start: 04/04/21 12:56 Freq: Status: Active Protocol: Document 04/04/21 12:57 [facility] (Rec: 04/04/21 13:21 [facility] [id number]) OT- Subjective Occupational Therapy Visit Type Type Initial Evaluation Visit Start Time 10:05 Visit Stop Time 10:54 Total Visit Minutes 49 Occupational Therapy Visit Comments Patient Comments Pt agreed to get up and pt's brother present during OT eval in addition to PT as pt needing extensive assist for mobility needs at this time. Patient/Caregiver Goals Pt insistent on going home and that he will be able to hire 24/7 assist for all needs. OT Pain Assessment Pain When Pain Assessed During Mobility Pain Present Pain Present Pain Reported M4 OT- IP ADL's Start: 04/04/21 12:56 Freq: Status: Active Protocol: Document 04/04/21 12:57 [facility] (Rec: 04/04/21 13:21 [facility] [id number]) OT [id number] Comments OT Self-Feeding Comments Not at meal time. OT ADL-Grooming General Evaluation Grooming Ability Standby Assistance Areas Needing Assistance Retrieving/Set-up of Grooming Items Comments OT Grooming Comments Pt able to do while seated in the recliner. OT ADL-Oral Care General Eval Oral Care Ability Independent OT ADL-Dressing General Eval Lower Body Dressing Ability Maximum Assistance Comments OT Dressing Comments At this time pt will be MAX A for all LB dressing needs. OT ADL-Toileting General Evaluation Toileting Ability Maximum Assistance Areas Needing Assistance Manage Clothing,Perform Perineal Hygiene Comments OT Toileting Comments Pt will benefit from a heavy duty bedside commode for home use if insisting on going home. OT ADL-Bathing Comments OT Bathing Comments Pt insists that he will just have assist to sponge off at home. M5 OT- IP IADL's Start: 04/04/21 12:56 Freq: Status: Active Protocol: Document 04/04/21 12:57 [facility] (Rec: 04/04/21 13:21 [facility] [id number]) OT-Instrumental Activities of Daily Living Home Safety Awareness Awareness of Need for Assistance at Home Decreased Awareness Home Safety Comments Pt if going home will need from 1-2 person to assist with his needs. As pt tired had more difficulty to maintain his toe touch weight bearing on his right foot. M6 OT- IP Functional Cognition Start: 04/04/21 12:56 Freq: Status: Active Protocol: Document 04/04/21 12:57 [facility] (Rec: 04/04/21 13:21 [facility] [id number]) Cognitive Factors Limiting Selfcare Function Cognitive Ability Level of Alertness Alert,Confusional State Patient Orientation Name,Place,Situation Attention Span Ability Capable of Focused Attention, Capable of Sustained Attention Ability to Follow Commands Able to Follow One Step Commands Safety Awareness Underestimates Need for Assistance Cognitive Tests SLUMS Pt scored 23/30 on 04/01/21 which implies cognitive deficits last admit, to retest tomorrow. Cognitive Comments Cognitive Assessment Comments Pt insistent that he will be able to do his steps at home as he did after his knee sx. Pt not seeming to grasp that he is now toe touch weight bearing for his RLE and best to have a ramp to help get into the house or possibly ambulance if insisting on going home. OT- Vision and Hearing OT- Hearing Assessment OT- Hearing Assessment WFL OT- Vision Assessment Visual Acuity Glasses All The Time M7 OT- IP Mobility and Balance Start: 04/04/21 12:56 Freq: Status: Active Protocol: Document 04/04/21 12:57 [facility] (Rec: 04/04/21 13:21 [facility] [id number]) OT-Transfer Assessment Sit to and From Stand Sit to and from Stand Moderate Assistance,1 Person Assistance,2 Person Assistance Transfers Transfer Ability Moderate Assistance,1 Person Assistance,2 Person Assistance Technique Transfer Destination Bed,Bedside Commode,Chair Transfer Technique Stand Step Pivot Devices Transfer Assistive Devices Gait Belt,Front Wheeled Walker Comments Mobility Comments Pt sit to stand form MODAx1 to MODAx2 pending on height of surface and also pending how fatigued pt was. Pt able to transfer by scooting his left foot side to side and heavy use of the FWW with his BUE to move. As pt tires, placed more then toe touch on his RLE and needing cues to keep his foot up. OT- Gait Assessment Comments Gait Ability Comments Transfer only at this time. OT- Balance Assessment Sitting Balance and Reactions Static Sitting Balance Ability Good Dynamic Sitting Balance Ability Fair Standing Balance and Reactions Static Standing Balance Ability Poor Dynamic Standing Balance Ability Poor M8 OT- IP Objective Assessments Start: 04/04/21 12:56 Freq: Status: Active Protocol: Document 04/04/21 12:57 [facility] (Rec: 04/04/21 13:21 [facility] [id number]) OT Gross Range of Motion Upper Extremity Range of Motion Assessment Within Functional Limits OT Strength Upper Extremity Strength Assessment Within Functional Limits M9 OT- IP Assessment and Plan Start: 04/04/21 12:56 Freq: Status: Active Protocol: Document 04/04/21 12:57 [facility] (Rec: 04/04/21 13:21 [facility] [id number]) OT Summary Assessment and Plan Potential Rehabilitation Potential Good Analytic Complexity at Evaluation Moderate Summary OT Impairments Pain,Balance,Functional Cognition,Functional Mobility, Dressing,Toileting,Bathing, Toilet Transfers,Shower Transfers,Activity Tolerance Progress Towards Goals Progressing Toward Goals Assessment Summary Pt MOD complexity and main barriers are steps, pain, and now toe touch weight bearing for his RLE, and needing extensive 1-2 person assist for ADl and mobility needs. Pt insists on going home and to hire assist. Pt would strongly benefit from skilled rehab stay as has difficulty to maintain with toe touch weight bearing and has 3 steps at home to be able to get into his house. Goals Grooming Goal Independent Dressing Goal Moderate Assistance Toileting Goal Moderate Assistance Bathing Goal Moderate Assistance Toilet Transfer Goal Minimal Assistance Patient/Caregiver Education Goal Caregiver Independent Assisting Patient Days to Meet Goals 20 Frequency of Treatment Frequency Of Treatment Once a Day Treatment Plan OT Treatment Plan ADL Training,Functional Cognition Training,Functional Mobility,Patient/Family Education,Discharge Planning Other Treatment Recommendations and Next SLUMS, caregiver training if Treatment Focus pt going home Discharge Recommendations OT Discharge Recommendations Home with 30/10 Assist Available,Home Health,SNF Rehab,Home vs SNF Home Equipment Needs wc, hospital bed, BSC, ramp Transportation Needs at Discharge Wheelchair/Cabulance,Stretcher /Ambulance
--- NOTE | 2021-04-04 12:24 | CM.DPNOTE ---
[phone] and [facility] [place] [facility]. Conf. received. Nikki Ramirez CM asst.
--- NOTE | 2021-04-04 14:07 | PT-IP ANOTE ---
Attempted to work with pt but he had just returned to bed after using the commode and was in too much pain and too tired to do PT. Pt noted he now understood the value of rehab placement after transferring with nursing and realizing how much work it was and how much assist he needed.
[2021-04-04] MEDS: LORazepam 0.5 MG TABLET PO ×2 (14:17→21:40)
--- NOTE | 2021-04-04 14:38 | CM.DANOTE ---
DCP/Assessment: Reviewed chart. Patient is a 70 yr old male admitted to . with ankle pain. PCP is Dr. Vargas. Primary payor is 1)Medicare 2)[facility]. Met with patient and brother/Blas at bedside. PT evaluation completed and SNF is recommended. Patient recently discharged from .. Brother/Blas here from out of state visiting. Initially, patient refused SNF after discussion and therapy evaluation patient agreeable to consider. Patient requesting private room. [employer] called the following SNF's for private room: [facility], [facility], [facility] and [facility]. All reviewing however, it is doubtful that [facility] will have bed or private room. Per Dr. Lopez patient most likely will be medically cleared to transfer tomorrow 04-05-21. Patient and brother aware. SNF's reviewing for acceptance. Patient does not need 3dy LOS to go to SNF due to recent hospitalization. P: SNF when stable. KJS Discharge Planning/Care Management Advanced directive, confirm from FAMILY Start: 04/03/21 10:26 Freq: Q24H Status: Complete Protocol: Document 04/03/21 10:51 CLL (Rec: 04/03/21 11:05 CLL [id number]) Co-Signed By Sarah Sanchez RN Advance Directive, confirm on record Time 11:03 Person contacted patient Copy received No CM Discharge Assessment Start: 04/04/21 14:31 Freq: Status: Active Protocol: Document 04/04/21 14:32 KJS (Rec: 04/04/21 14:37 KJS [id number]) Discharge Planning Assessment Assigned Algorithm Design Engineer EDITH Figueroa Contact Information Blas Osorio (brother) # Advance Directives? No Advance Directives on File No History Provided By Family Member,Medical Record Has Patient been admitted in last 30 Yes days? Prior Living Arrangements House Household Members none Type of transporation used prior to Relies on Others admit Independent with ADL's No Is patient alert and oriented? Yes Needs Assistance With Bathing,Grooming,Meal Prep, Home Chores / Shopping Caregiver for Another No Community Services used prior to Oxygen Therapy admission: DME Already Rented / Owned Oxygen Patient/Family Preference Alf Facility Comment Current d/c recommendation is SNF. Patient agreeable today but prefers private room. Discharge Plan Alf Facility Additional Comment Patient reports he has [facility] to prrovide assistance for 8 hours per day and a friend Marcio Kinsey stays with him in the evenings. If patient plan is home with home health Yes : Has signed face to face form been completed? Whiteboard Updated in Patient Room with Yes name and ext. # of Algorithm Design Engineer Review Status In Process Next Review Type Continued Stay Review
[2021-04-04] MEDS: INSULIN LISPRO 100 UNIT/ML 3ML VIAL SUBCUT (17:20)
[2021-04-05] MEDS: OXYCODONE IR 5 MG TABLET PO ×3 (00:57→08:17)
--- NOTE | 2021-04-05 01:11 | PC.NURSE ---
SHIFT: Report received, care assumed 1929. Pt. A&Ox4. VSS. C/o 5-10/16 pain in right ankle. Treated with PO meds, as discharge is anticipated tomorrow. Pt gets up to BSC with walker, 2-person assist, and toe-touch weight-bearing; performs well. Pt is reluctant to go to SNF, but verbalizes understanding of POC and rationale.
[2021-04-05 01:58] VITALS: BP 123/71; PULSE 89; RESP 18; TEMP 36.7; O2SAT 94
[2021-04-05] MEDS: LEVOTHYROXINE 150 MCG TABLET PO (05:08)
[2021-04-05] MEDS: LORazepam 0.5 MG TABLET PO (05:11)
[2021-04-05] MEDS: ALBUTEROL/IPRATROPIUM 3 ML AMPUL INH ×2 (07:22→14:32)
[2021-04-05] MEDS: BUDESONIDE 0.5 MG/2 ML NEB INH (07:22)
[2021-04-05 07:27] VITALS: PULSE 84; RESP 20; O2SAT 88
[2021-04-05 07:29] VITALS: O2SAT 93; O2SAT 96
[2021-04-05 07:34] VITALS: BP 143/90; PULSE 91; RESP 18; TEMP 37.3; O2SAT 98
[2021-04-05] MEDS: CHLORTHALIDONE 25 MG TABLET 50 MG PO (07:54)
[2021-04-05] MEDS: ENOXAPARIN 40 MG/0.4 ML SYRINGE SUBCUT (07:54)
[2021-04-05] MEDS: DOCUSATE 100 MG CAPSULE PO (07:55)
[2021-04-05] MEDS: DULOXETINE 30 MG CAPSULE PO (07:55)
[2021-04-05] MEDS: CYANOCOBALAMIN (VITAMIN B-12) 500 MCG TABLET 1000 MCG PO (07:55)
[2021-04-05] MEDS: PANTOPRAZOLE 40 MG VIAL IV (07:55)
[2021-04-05] MEDS: POTASSIUM CHLORIDE 20 MEQ TAB PO (07:55)
[2021-04-05] MEDS: TAMSULOSIN 0.4 MG CAPSULE PO (07:55)
[2021-04-05] MEDS: FLUTICASONE 120 SPRAY/16 GM SPRAY.SUSP NASAL (07:57)
[2021-04-05] MEDS: SODIUM CHLORIDE 0.9% FLUSH 10 ML IV (07:58)
[2021-04-05] MEDS: predniSONE 20 MG TABLET PO (08:16)
--- NOTE | 2021-04-05 08:43 | CM.DPNOTE ---
Addendum entered by Nikki Ramirez 04/05/21 10:53: Called [facility] at 1050 to let them know pt. is on 2 Liters of O2 and to bring an O2 tank. Nikki Ramirez CM Asst. Addendum entered by Nikki Ramirez 04/05/21 10:42: Faxed Final SNF clinicals per Maru to [facility] for 1500 transport. Relayed transport time to Tesfaye RN. I spoke with Bonny who said the Covid result from 04/03 was okay to use, no need to draw another lab. Nikki Ramirez CM Asst. Original Note: Faxed snf referral per Maru to [facility] and received confirm. Nikki Ramirez CM Asst.
--- NOTE | 2021-04-05 10:14 | PM.DS.1 ---
History of Present Illness History of Present Illness Date Patient Seen: 04/05/21 Time Patient Seen: 07:45 Chief complaint: Ankle pain Narrative: This is a very pleasant 70-year-old male who is under the primary care of Dr. Vargas.? He was hospitalized from March 27 through April 01 for hypercapnic respiratory failure due to worsening COPD in the increasing his oxygen which subsequently cauterized CO2 retention, confusion which led to intubation and hospitalization.? He was intubated for approximately 3 days.? He recover quite remarkably well and was discharged home on April 01.? He had had some pain in his right ankle that was thought possibly to be related to pre hospitalization confusion possible trauma.? But he was ambulating and working with physical therapy and tolerating this without significant difficulty but was complaining of pain in his right ankle.? At home he has had increasing pain in our deformity of the right ankle.? To the point that his pain was so much worse that he called EMS and was brought the ER for evaluation.? An x-ray of the knee showed no changes in his total knee replacement hardware.? At x-ray of his right ankle showed a distal fibular fracture now displaced with lateral sub with subluxation of the talus and unstable right ankle.? Dr. Verde was consulted and graciously agreed to take patient to the ER for an open reduction and internal fixation of the surgical right ankle.? He did not meet criteria for sedation and closed reduction in the ER.? This is due to his multiple comorbidities including his recent respiratory failure with intubation. Since his discharge he states he feels his breathing continues to improve.? He has not had any cough for fever or chest pain.? He has not had any change in his bowel movements.? He has not had any bright red blood per rectum or black tarry stools.? Other than the right ankle pain he feels he is getting better.? He was discharged home from the hospital on 20 mg of prednisone and no antibiotics.? He briefly had antibiotics with his last hospitalization but these were discontinued due to no convincing evidence of overlying infection and cultures were negative. Discharge Providers Provider Date of admission: 04/03/21 08:16 Discharge Date: 04/05/21 Primary care physician: Blas Vargas MD Consults: 04/03/21 09:38 Consult to Orthopedic Surgery Urgent Comment: Consulting Provider: Catherine Chavez Reason for consultation: Ankle Fracture / Dislocation Has provider been notified: Yes 04/03/21 13:04 Consult to Discharge Planning Routine Comment: Consult to Physical Therapy Evaluate & Treat Comment: Physician Instructions: Evaluate and Treat 04/03/21 13:11 Consult to Respiratory Therapy Evaluate & Treat Comment: COPD Physician Instructions: Evaluate and treat 04/03/21 16:36 Consult to Physical Therapy Evaluate & Treat Comment: ttwb rLE Physician Instructions: Evaluate and Treat 04/04/21 08:50 Consult to Occupational Therapy Evaluate & Treat Comment: Physician Instructions: Evaluate and treat Discharge provider: Camelia Lopez MD Summary Hospital Course Discharge Diagnosis: Unstable right ankle fracture with distal fibular fracture with medial displacement of tibia and lateral subluxation of talus, s/p ORIF Serous blister right heel Chronic respiratory failure with hypercapnia COPD HTN Hypothyroidism Depression GERD Hypokalemia Hyperglycemia Hospital Course: The pt was admitted with right ankle fracture. Her underwent surgery with Geeta Holm, on 04/03 with ORIF completed. The blister on his heel was also decompressed and debrided. Postoperatively, there were no complications. At the time of discharge, he was breathing comfortably on 2L of O2, as he had been admitted to the hospital on. His BP was well controlled. His pain was adequately controlled with oxycodone. Due to being able to only toe-touch for the next 2 weeks until Ortho f/u, the pt will discharge to SNF with plans to ultimately return home. Status at Discharge Cognitive/behavioral status at discharge: oriented Functional status at discharge: wheelchair bound Overall status at discharge: patient is not back to baseline Exam Vital Signs (past 8 hours): - 04/05/21 07:27 04/05/21 07:29 04/05/21 07:34 Temperature 99.1 F Pulse Rate 84 91 H Respiratory Rate 20 18 Blood Pressure 143/90 H Pulse Oximetry 88 L 96 98 Oxygen Delivery Method Nasal Cannula Oxygen Flow Rate 2 Narrative Exam Narrative: Gen: NAD, sitting comfortably in chair, appears well CV: RRR, no murmurs Resp: clear to auscultation bilaterally Abd: soft, nontender, nondistended Ext: trace edema left LE, right LE bandaged with good capillary refill in toes Objective Labs Result Diagrams: 04/04/21 04:25 04/04/21 04:25 PFSH Medical History Acquired insufficiency of aortic valve (10/08/15) Asthma Cellulitis (~02/2020) Chronic obstructive pulmonary disease (01/19/11) Cobalamin deficiency CTS (carpal tunnel syndrome) Duodenal ulcer Eczema Elevated d-dimer (~02/2020) Essential hypertension Former smoker Gastric ulcer History of malignant neoplasm of prostate Hypothyroidism (08/21/14) Idiopathic peripheral neuropathy Leukocytosis (01/19/11) Low back pain of over 3 months duration (11/15/16) Obesity (01/19/11) Olecranon bursitis of left elbow Osteoarthritis Prostate cancer (2010) Thrombocytosis (01/19/11) Unilateral primary osteoarthritis, right knee Weakness of right lower extremity (11/15/16) Surgical History History of arthroplasty of right knee (05/24/20) History of spinal fusion (2012) History of splenectomy (1975) Status post cataract extraction of both eyes with insertion of intraocular lens Status post wrist surgery (2011) Family History Brother Thyroid cancer Mother Breast cancer Father No problems noted. 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: [employer] travel history: recent () leisure activities: art (Photography), volunteer work and other (Traveling) Smoking Status: Former smoker Tobacco: How many years used: 15 Smokeless tobacco user: other (Cigarettes) quit status: quit date established (1989) second hand exposure: No alcohol intake: former substance use type: does not use Discharge Plan Discharge Plan Patient Disposition: [facility] Other facility: [facility] Discharge orders & Medications Prescriptions: New docusate sodium 100 mg Capsule 100 mg PO BID Qty: 30 0RF oxycodone 10 mg Tablet 10 mg PO Q3HR PRN (Reason: Pain, Moderate (4-6)) Qty: 60 0RF aspirin 325 mg tablet 325 mg PO DAILY Qty: 30 0RF Continued cyanocobalamin (vitamin B-12) 1,000 MCG tablet extended release 1,000 mcg PO QDAY Qty: 0 0RF Alvesco 160 mcg/actuation HFA aerosol inhaler 2 puff INHALATION BID Qty: 6.1 11RF Rx Instructions: uses as needed potassium chloride [Klor-Con M20] 20 mEq tablet,ER particles/crystals 20 meq PO DAILY Qty: 30 11RF omeprazole 40 mg capsule,delayed release(DR/EC) 40 mg PO BID Qty: 60 11RF duloxetine 30 mg capsule,delayed release(DR/EC) 30 mg PO DAILY Qty: 90 3RF levothyroxine 150 mcg tablet See Rx Instructions .ROUTE .COMPLEX Qty: 90 1RF Dose Instruction: take 1 tablet by mouth in the morning before eating/drinking Rx Instructions: take 1 tablet by mouth in the morning before eating/drinking chlorthalidone 25 mg tablet 50 mg PO QDAY Qty: 180 1RF albuterol sulfate [Proventil HFA] 90 mcg/actuation HFA aerosol inhaler 2 puff INHALATION Q4HP PRN (Reason: shortness of breath or wheezing) Qty: 2 3RF diphenhydramine HCl [Allergy (diphenhydramine)] 25 mg capsule 25 mg PO Q4-6H PRN (Reason: Itching) 0RF Rx Instructions: when needed triamcinolone acetonide 0.1 % cream 1 applic topical TID Qty: 80 3RF fluticasone propionate 50 mcg/actuation spray,suspension 2 spray NASAL BEDTIME PRN (Reason: Allergy Symptoms) 0RF Rx Instructions: administer into each nostril Combivent Respimat 20-100 mcg/actuation mist 1 puff INHALATION BID 0RF Rx Instructions: space evenly during waking hours tamsulosin [Flomax] 0.4 mg Capsule 0.4 mg PO DAILY Qty: 5 0RF prednisone 20 mg tablet 20 mg PO DAILY Qty: 60 0RF acetaminophen 325 mg Tablet 650 mg PO TID PRN (Reason: Pain, Mild) Qty: 60 0RF ibuprofen 400 mg Tablet 400 mg PO Q4HR PRN (Reason: pain, mild) Qty: 60 0RF Follow up/Referrals: Blas Vargas MD [Primary Care Provider] - Discharge Health Status Precautions: [place] Diet/Activity/Treatments Diet: Diet as Tolerated and Regular Liquid consistency: Normal/Thin Food texture: Regular [facility] Reason for rehabilitation: Post-operative therapy Rehab type: Physical therapy and Occupational therapy Visit Report/Discharge Packet Instructions: DI for Open Reduction Internal Fixation Surgery, DI for Prescription Opioid Use Visit Report Forms: Patient Portal/API, Stroke Signs & Symptoms Discharge Data Primary Care Provider: Blas Vargas Quality VTE Deep Vein Thrombosis/Pulmonary Embolism Present on Admission: No
--- NOTE | 2021-04-05 10:35 | CM.DPNOTE ---
Called [facility] to let them know pt. is going to [facility]. Nikki Ramirez CM Asst.
--- NOTE | 2021-04-05 11:08 | OT.IP.TRT ---
Current Diagnoses Chronic obstructive pulmonary disease, unspecified (04/03/21) Other fracture of right lower leg, initial encounter for closed fracture (04/03/21) Surgery Performed Operation Date: 04/03/21 12:15 Actual Procedures p ORIF Ankle Fracture(Right) - Catherine Chavez MD Occupational Therapy Treatment Note M2 OT-IP Current Condition Start: 04/04/21 12:56 Freq: Status: Active Protocol: Document 04/04/21 12:57 [facility] (Rec: 04/04/21 13:21 [facility] [id number]) Occupational Therapy Current Condition Current Condition Evaluation Date 04/04/21 Treatment Diagnosis Right ankle distal fibular fx, S/P right ankle ORIF, decreased mobility Diagnosis Onset Date 04/03/21 Weight Bearing Status Weight Bearing Status Touch Down Weight Bearing Allowed Weight Bearing Amount (enter % RLE toe touch for balance. or #) (%) M3 OT- IP Subjective and Pain Start: 04/04/21 12:56 Freq: Status: Active Protocol: Document 04/05/21 11:24 [facility] (Rec: 04/05/21 11:30 [facility] [id number]) OT- Subjective Occupational Therapy Visit Type Type Treatment Note Visit Start Time 10:45 Visit Stop Time 11:08 Total Visit Minutes 223 Occupational Therapy Visit Comments Patient Comments Pt was sitting on the BSc when OT came in to assist. Patient/Caregiver Goals Pt now realizes it would be best to go to skilled rehab. OT Pain Assessment Pain When Pain Assessed During Mobility Pain Present Pain Present Pain Reported Location Right Ankle Intensity 7 Scale Used Numeric (0 - 10) M4 OT- IP ADL's Start: 04/04/21 12:56 Freq: Status: Active Protocol: Document 04/04/21 12:57 [facility] (Rec: 04/04/21 13:21 [facility] [id number]) OT [id number] Comments OT Self-Feeding Comments Not at meal time. OT ADL-Grooming General Evaluation Grooming Ability Standby Assistance Areas Needing Assistance Retrieving/Set-up of Grooming Items Comments OT Grooming Comments Pt able to do while seated in the recliner. OT ADL-Oral Care General Eval Oral Care Ability Independent OT ADL-Dressing General Eval Lower Body Dressing Ability Maximum Assistance Comments OT Dressing Comments At this time pt will be MAX A for all LB dressing needs. OT ADL-Toileting General Evaluation Toileting Ability Maximum Assistance Areas Needing Assistance Manage Clothing,Perform Perineal Hygiene Comments OT Toileting Comments Pt will benefit from a heavy duty bed side commode for home use if insisting on going home. OT ADL-Bathing Comments OT Bathing Comments Pt insists that he will just have assist to sponge off at home. M5 OT- IP IADL's Start: 04/04/21 12:56 Freq: Status: Active Protocol: Document 04/04/21 12:57 [facility] (Rec: 04/04/21 13:21 [facility] [id number]) OT-Instrumental Activities of Daily Living Home Safety Awareness Awareness of Need for Assistance at Home Decreased Awareness Home Safety Comments Pt if going home will need from 1-2 person to assist with his needs. As pt tired has more difficulty to maintain his toe touch weight bearing on his right foot. M6 OT- IP Functional Cognition Start: 04/04/21 12:56 Freq: Status: Active Protocol: Document 04/04/21 12:57 [facility] (Rec: 04/04/21 13:21 [facility] [id number]) Cognitive Factors Limiting Selfcare Function Cognitive Ability Level of Alertness Alert,Confusional State Patient Orientation Name,Place,Situation Attention Span Ability Capable of Focused Attention, Capable of Sustained Attention Ability to Follow Commands Able to Follow One Step Commands Safety Awareness Underestimates Need for Assistance Cognitive Tests SLUMS Pt scored 23/30 on 04/01/21 which implies cognitive deficits last admit, to retest tomorrow. Cognitive Comments Cognitive Assessment Comments Pt insistent that he will be able to do his steps at home as he did after his knee sx. Pt not seeming to grasp that he is now toe touch weight bearing for his RLE and best to have a ramp to help get into the house or possibly ambulance if insisting on going home. OT- Vision and Hearing OT- Hearing Assessment OT- Hearing Assessment WFL OT- Vision Assessment Visual Acuity Glasses All The Time M7 OT- IP Mobility and Balance Start: 04/04/21 12:56 Freq: Status: Active Protocol: Document 04/05/21 11:24 [facility] (Rec: 04/05/21 11:30 [facility] [id number]) OT-Transfer Assessment Sit to and From Stand Sit to and from Stand Maximum Assistance,2 Person Assistance Transfers Transfer Ability Maximum Assistance,2 Person Assistance Technique Transfer Destination Bed,Bedside Commode,Chair Transfer Technique Stand Step Pivot Devices Transfer Assistive Devices Gait Belt,Front Wheeled Walker Comments Mobility Comments MAX AX 2 to stand to FWW, able to try various options when coming to stand. Best option for pt was to push up with his right hand on the armrest of the recliner and left hand up on the FWW and MAX AX 2 to stand from the therapist. Pt still having difficulty to maintain toe touch weight bearing for his right foot when up and especially when tiring. M8 OT- IP Objective Assessments Start: 04/04/21 12:56 Freq: Status: Active Protocol: Document 04/04/21 12:57 [facility] (Rec: 04/04/21 13:21 [facility] [id number]) OT Gross Range of Motion Upper Extremity Range of Motion Assessment Within Functional Limits OT Strength Upper Extremity Strength Assessment Within Functional Limits M9 OT- IP Assessment and Plan Start: 04/04/21 12:56 Freq: Status: Active Protocol: Document 04/05/21 11:24 [facility] (Rec: 04/05/21 11:30 [facility] [id number]) OT Summary Assessment and Plan Potential Rehabilitation Potential Good Analytic Complexity at Evaluation Moderate Summary OT Impairments Pain,Balance,Functional Cognition,Functional Mobility, Dressing,Toileting,Bathing, Toilet Transfers,Shower Transfers,Activity Tolerance Progress Towards Goals Progressing Toward Goals Assessment Summary Pt able to take hop a few steps with FWW and MAX A x2. Pt will benefit from skilled rehab to work towards his prior level of care or level of care needed if planning on hiring assist at home. Goals Grooming Goal Independent Dressing Goal Moderate Assistance Toileting Goal Moderate Assistance Bathing Goal Moderate Assistance Toilet Transfer Goal Minimal Assistance Patient/Caregiver Education Goal Caregiver Independent Assisting Patient Days to Meet Goals 20 Frequency of Treatment Frequency Of Treatment Once a Day Treatment Plan OT Treatment Plan ADL Training,Functional Cognition Training,Functional Mobility,Patient/Family Education,Discharge Planning Discharge Recommendations OT Discharge Recommendations SNF Rehab Transportation Needs at Discharge Wheelchair/Cabulance
--- NOTE | 2021-04-05 11:08 | OT.IP.TRT ---
Current Diagnoses Chronic obstructive pulmonary disease, unspecified (04/03/21) Other fracture of right lower leg, initial encounter for closed fracture (04/03/21) Surgery Performed Operation Date: 04/03/21 12:15 Actual Procedures p ORIF Ankle Fracture(Right) - Catherine Chavez MD Occupational Therapy Treatment Note M2 OT-IP Current Condition Start: 04/04/21 12:56 Freq: Status: Active Protocol: Document 04/04/21 12:57 [facility] (Rec: 04/04/21 13:21 [facility] [id number]) Occupational Therapy Current Condition Current Condition Evaluation Date 04/04/21 Treatment Diagnosis Right ankle distal fibular fx, S/P right ankle ORIF, decreased mobility Diagnosis Onset Date 04/03/21 Weight Bearing Status Weight Bearing Status Touch Down Weight Bearing Allowed Weight Bearing Amount (enter % RLE toe touch for balance. or #) (%) M3 OT- IP Subjective and Pain Start: 04/04/21 12:56 Freq: Status: Active Protocol: Document 04/05/21 11:24 [facility] (Rec: 04/05/21 11:30 [facility] [id number]) OT- Subjective Occupational Therapy Visit Type Type Treatment Note Visit Start Time 10:45 Visit Stop Time 11:08 Total Visit Minutes 223 Occupational Therapy Visit Comments Patient Comments Pt was sitting on the BSc when OT came in to assist. Patient/Caregiver Goals Pt now realizes it would be best to go to skilled rehab. OT Pain Assessment Pain When Pain Assessed During Mobility Pain Present Pain Present Pain Reported Location Right Ankle Intensity 7 Scale Used Numeric (0 - 10) M4 OT- IP ADL's Start: 04/04/21 12:56 Freq: Status: Active Protocol: Document 04/04/21 12:57 [facility] (Rec: 04/04/21 13:21 [facility] [id number]) OT [id number] Comments OT Self-Feeding Comments Not at meal time. OT ADL-Grooming General Evaluation Grooming Ability Standby Assistance Areas Needing Assistance Retrieving/Set-up of Grooming Items Comments OT Grooming Comments Pt able to do while seated in the recliner. OT ADL-Oral Care General Eval Oral Care Ability Independent OT ADL-Dressing General Eval Lower Body Dressing Ability Maximum Assistance Comments OT Dressing Comments At this time pt will be MAX A for all LB dressing needs. OT ADL-Toileting General Evaluation Toileting Ability Maximum Assistance Areas Needing Assistance Manage Clothing,Perform Perineal Hygiene Comments OT Toileting Comments Pt will benefit from a heavy duty bed side commode for home use if insisting on going home. OT ADL-Bathing Comments OT Bathing Comments Pt insists that he will just have assist to sponge off at home. OT- Vision and Hearing OT- Hearing Assessment OT- Hearing Assessment WFL OT- Vision Assessment Visual Acuity Glasses All The Time M7 OT- IP Mobility and Balance Start: 04/04/21 12:56 Freq: Status: Active Protocol: Document 04/05/21 11:24 [facility] (Rec: 04/05/21 11:30 [facility] [id number]) OT-Transfer Assessment Sit to and From Stand Sit to and from Stand Maximum Assistance,2 Person Assistance Transfers Transfer Ability Maximum Assistance,2 Person Assistance Technique Transfer Destination Bed,Bedside Commode,Chair Transfer Technique Stand Step Pivot Devices Transfer Assistive Devices Gait Belt,Front Wheeled Walker Comments Mobility Comments MAX AX 2 to stand to FWW, able to try various options when coming to stand. Best option for pt was to push up with his right hand on the armrest of the recliner and left hand up on the FWW and MAX AX 2 to stand from the therapist. Pt still having difficulty to maintain toe touch weight bearing for his right foot when up and especially when tiring. M8 OT- IP Objective Assessments Start: 04/04/21 12:56 Freq: Status: Active Protocol: Document 04/04/21 12:57 [facility] (Rec: 04/04/21 13:21 [facility] [id number]) OT Gross Range of Motion Upper Extremity Range of Motion Assessment Within Functional Limits OT Strength Upper Extremity Strength Assessment Within Functional Limits M9 OT- IP Assessment and Plan Start: 04/04/21 12:56 Freq: Status: Active Protocol: Document 04/05/21 11:24 [facility] (Rec: 04/05/21 11:30 [facility] [id number]) OT Summary Assessment and Plan Potential Rehabilitation Potential Good Analytic Complexity at Evaluation Moderate Summary OT Impairments Pain,Balance,Functional Cognition,Functional Mobility, Dressing,Toileting,Bathing, Toilet Transfers,Shower Transfers,Activity Tolerance Progress Towards Goals Progressing Toward Goals Assessment Summary Pt able to take hop a few steps with FWW and MAX A x2. Pt will benefit from skilled rehab to work towards his prior level of care or level of care needed if planning on hiring assist at home. Goals Grooming Goal Independent Dressing Goal Moderate Assistance Toileting Goal Moderate Assistance Bathing Goal Moderate Assistance Toilet Transfer Goal Minimal Assistance Patient/Caregiver Education Goal Caregiver Independent Assisting Patient Days to Meet Goals 20 Frequency of Treatment Frequency Of Treatment Once a Day Treatment Plan OT Treatment Plan ADL Training,Functional Cognition Training,Functional Mobility,Patient/Family Education,Discharge Planning Discharge Recommendations OT Discharge Recommendations SNF Rehab Transportation Needs at Discharge Wheelchair/Cabulance
--- NOTE | 2021-04-05 11:08 | PT.IPTN ---
Current Diagnoses Chronic obstructive pulmonary disease, unspecified (04/03/21) Other fracture of right lower leg, initial encounter for closed fracture (04/03/21) Surgery Performed Operation Date: 04/03/21 12:15 Actual Procedures p ORIF Ankle Fracture(Right) - Catherine Chavez MD Physical Therapy Treatment Note M2 PT-IP Current Condition Start: 04/04/21 08:47 Freq: NEEDED Status: Active Protocol: Document 04/05/21 10:50 SP (Rec: 04/05/21 12:41 SP [id number]) Physical Therapy Current Condition Current Condition Evaluation Date 04/04/21 Treatment Diagnosis R distal fibula fx s/p ORIF; NWB RLE; difficulty in walking Onset Date 04/03/21 M3 PT-IP Subjective Start: 04/04/21 08:47 Freq: NEEDED Status: Active Protocol: Document 04/05/21 10:50 SP (Rec: 04/05/21 12:41 SP [id number]) Subjective Physical Therapy Visit Type Type Treatment Note Visit Start Time 10:50 Visit Stop Time 11:08 Total Visit Minutes 18 Notes CoTx with OT due to need for increased assist for mobility. Number of FROG OR OYSTER FARMWORKER Visits 1 Physical Therapy Visit Comments Patient Comments Pt willing to work with therapy Patient Goals Pt stated willing to go to skilled rehab to improve strength and functional mobility. Therapy Pain Assessment Pain When Pain Assessed During Mobility Pain Present Pain Present Pain Reported Location Right Ankle Intensity 7 Scale Used 7/10 at rest; unchanged with mobility Pain Management Techniques Distraction,Elevation,Re- positioning,Timing of Activity with Medications M4 PT-IP Mobility and Gait Start: 04/04/21 08:47 Freq: NEEDED Status: Active Protocol: Document 04/05/21 10:50 SP (Rec: 04/05/21 12:41 SP [id number]) PT-Transfer Assessment Sit to and From Stand Sit to and from Stand Maximum Assistance,2 Person Assistance,Use of Upper Extremities Equipment Transfer Assistive Device Gait Belt,Front Wheeled Walker Orthotic/Prosthetic Devices or Brace: Yes Transfers Transfer Destination Chair Transfer Technique Stand Step Pivot Transfer Ability Level of Assist Moderate Assistance,Maximum Assistance,2 Person Assistance ,Use of Upper Extremities Comments Mobility Comments Pt was seated on BSC with BORING MACHINE OPERATOR DOUBLE END and OT in room when arrived. FROG OR OYSTER FARMWORKER provided education on NWB- TTWB RLE (soft cast donned with evan bandaging) precuations during mobility for safety healing verbalized understanding. Sit>stand Max A x2 with cues for LUE on FWW and push from BSC arm rest with RLE positioned out front and off floor best to assist maintaining wB restrictions. step hop/ scoot on RLE using FWW BSC>chair >sit Mod A x2 for slow descent. Is questionable on maintaining WB RLE with Max cuing. FROG OR OYSTER FARMWORKER/ OT raised FWW x1 knotch to allow taller posture and RLE foot clearance easier. Sit>stand Max A x2 w/ FWW forward locomotion w/ chair follow approx 5 ft with cuing for tall posture, downward BUE pressure on FWW then Mod Ax2 slow descent to sit in chair after locked. Continued questionable maintaining TTWB, seemed < 25% WB on RLE. FROG OR OYSTER FARMWORKER/ OT provided further education on NWB daylight underneath RLE best. Sit<>stand from chair with max cues for holding RLE off floor, seemed to demonstrate TTWB- 15%WB on RLE coming to standing Max A x2 w/ use of FWW. Pt was reclined in chair with 3 pillow supporting RLE in chair before left with call light and all needs in reach. Gait Assessment Gait Gait Assistance Required: Moderate Assistance,2 Person Assist Distance (Feet) 5 Able to Maintain Weight Bearing Status No During Gait Assistive Devices Assistive Device Gait Belt,Front Wheeled Walker Orthotic/Prosthetic Devices or Brace: No Gait Deviations General Gait Pattern Decreased Stride Length, Decreased Feet Clearance, Flexed Trunk,Step-to Gait Factors Limiting Gait Function Factors Limiting Gait Function Decreased Activity Tolerance, Decreased Strength,Difficulty Following Directions,Limited Range of Motion,Pain,Poor Balance,Poor Safety Awareness Comments Gait Comments Step hop/ RLE scoot 90 deg transfer w/ fWW BSC> chair, forward gait step hop using fWW WB more questionable. Stair Climbing Assessment Comments Stair Climbing Comments Unable to assess at this time. PT-Balance Assessment Sitting Balance and Reactions Static Sitting Balance Ability Good Dynamic Sitting Balance Ability Fair Standing Balance and Reactions Static Standing Balance Ability Good Dynamic Standing Balance Ability Fair Device Used FWW Balance Tests Single Limb Standing able to maintain NWB-TTWB RLE stationary stand M5 PT-IP Objective Assessments Start: 04/04/21 08:47 Freq: NEEDED Status: Active Protocol: Document 04/04/21 10:45 AW (Rec: 04/04/21 11:36 AW [id number]) Orientation Orientation/Cognition Level of Alertness Alert Orientation Name,Day of Week,Place, Situation Language Function Ability No Deficits Noted Safety Awareness Decreased Safety Awareness Gross Range of Motion Lower Extremity ROM Assessment Right Impaired Strength Lower Extremity Strength Assessment Right Impaired Hip 4/5 Knee 4+/5 Ankle NT Comments Strength Comments LLE grossly 4+/5 Sensation Assessment Sensation Gross Sensation Right LE Impaired,Left LE Impaired Comments Sensation Comments Neuropathy affects sensation distal BLE to ~10 cm above ankles and greatest deficits on plantar surfaces of feet. Muscle Tone Muscle Tone WNL Yes M6 PT-IP Treatment Start: 04/04/21 08:47 Freq: NEEDED Status: Active Protocol: Document 04/05/21 10:50 SP (Rec: 04/05/21 12:41 SP [id number]) Physical Therapy Treatment Education Education Provided Weight Bearing Status,Safety Other Treatments Other Treatment Performed Extra time on education on maintaining NWB- TTWB on RLE for proper healing safety. M7 PT-IP Assessment and Plan Start: 04/04/21 08:47 Freq: NEEDED Status: Active Protocol: Document 04/05/21 10:50 SP (Rec: 04/05/21 12:41 SP [id number]) PT Summary Assessment and Plan Potential Rehabilitation Potential Good Status of Condition at Evaluation Unstable Summary Impairments Pain,ROM,Strength,Balance, Sensation,Bed Mobility, Transfers,Gait Progress Towards Goals Progressing Toward Goals,Slow Progress due to Pain,Slow Progress due to Activity Tolerance,Slow Progress - Other Assessment Summary Pt requires Max A x2 during Sit<>stand and transfers using FWW with max cuing for maintaining NWB- TTWB on RLE throughout mobility. Pt will require and agreeable to [facility] skilled rehab to progress strength and functional independence in mobiltiy. WIll continue to assess progress. Goals Bed Mobility Goal Standby Assistance Transfer Goal Standby Assistance,Front Wheeled Walker Gait Goal Minimal Assistance,Front Wheel Walker Gait Distance 25 Other Goals - up/down 1 step with no rail and 2 steps with unilateral rail min assist Days to Meet Goals 10 Frequency of Treatment Frequency Of Treatment Twice a Day Treatment Plan Physical Therapy Treatment Plan Bed Mobility Training,Transfer Training,Gait Training, Therapeutic Exercise,Balance Retraining,Post Op Education, Discharge Planning,Hot or Cold Pack Other Recommendations and Next Treatment transfer, gait w/ chair follow Focus if maintain TTWB. Weight Bearing Status Weight Bearing Status Touch Down Weight Bearing Allowed Weight Bearing Amount (enter % RLE toe touch for balance. or #) (%) Recommendations To Nursing Amount of Assist Needed 2 Person Assist Discharge Recommendations PT Discharge Recommendations SNF Rehab Equipment Needed for Home Before wheelchair, BSC, hospital bed, Discharge ramp if and when safe to return home. Transportation Needs at Discharge Wheelchair/Cabulance
[2021-04-05] MEDS: OXYCODONE IR 10 MG TABLET PO ×2 (11:10→14:26)
--- NOTE | 2021-04-05 13:01 | CM.DPC ---
DCP/continued: Reviewed chart. CM team received call from [facility] indicating that they do have private room available today if needed. HEALTH CLUB MANAGER requested Emma fax clinicals and [facility]. HEALTH CLUB MANAGER met with patient and brother/Blas at bedside. Patient aware and agreeable to go to [place] with private room. Placed call to Dr. Lopez requesting orders. Dr. Lopez more than happy to accommodate. Patient scheduled to be picked up at approximately 3:00pm today. HEALTH CLUB MANAGER notified [facility] that 02 would be needed for trip. P: [facility] today. RN updated and given number to call report. HERI
--- NOTE | 2021-04-05 14:25 | PT.IPTN ---
Current Diagnoses Chronic obstructive pulmonary disease, unspecified (04/03/21) Other fracture of right lower leg, initial encounter for closed fracture (04/03/21) Surgery Performed Operation Date: 04/03/21 12:15 Actual Procedures p ORIF Ankle Fracture(Right) - Catherine Chavez MD Physical Therapy Treatment Note M2 PT-IP Current Condition Start: 04/04/21 08:47 Freq: NEEDED Status: Active Protocol: Document 04/05/21 14:10 SP (Rec: 04/05/21 14:43 SP [id number]) Physical Therapy Current Condition Current Condition Evaluation Date 04/04/21 Treatment Diagnosis R distal fibula fx s/p ORIF; NWB RLE; difficulty in walking Onset Date 04/03/21 M3 PT-IP Subjective Start: 04/04/21 08:47 Freq: NEEDED Status: Active Protocol: Document 04/05/21 14:10 SP (Rec: 04/05/21 14:43 SP [id number]) Subjective Physical Therapy Visit Type Type Treatment Note Visit Start Time 14:10 Visit Stop Time 14:25 Total Visit Minutes 15 Notes Friend in room when arrived. Pt agreeable to friend staying through tx as observer. Nurse provided 2nd person assist for mobility required. Number of CONTINUOUS WAVE OPERATOR Visits 1 Physical Therapy Visit Comments Patient Comments Pt willing to work with therapy Patient Goals Pt stated willing to go to skilled rehab to improve strength and functional mobility. Therapy Pain Assessment Pain When Pain Assessed During Mobility Pain Present Pain Present Pain Reported Location Right Ankle Intensity 7 Scale Used Numeric (0 - 10) Description Throbbing,With Movement Pain Behaviors Facial Grimacing Pain Management Techniques Distraction,Elevation,Re- positioning,Timing of Activity with Medications M4 PT-IP Mobility and Gait Start: 04/04/21 08:47 Freq: NEEDED Status: Active Protocol: Document 04/05/21 14:10 SP (Rec: 04/05/21 14:43 SP [id number]) PT-Transfer Assessment Sit to and From Stand Sit to and from Stand Moderate Assistance,2 Person Assistance,Use of Upper Extremities Equipment Transfer Assistive Device Gait Belt,Front Wheeled Walker Orthotic/Prosthetic Devices or Brace: No Transfers Transfer Destination Bed,Chair Transfer Technique Stand Pivot Transfer Ability Level of Assist Moderate Assistance,2 Person Assistance,Use of Upper Extremities Comments Mobility Comments Pt reclined in chair when arrived. Assisted Leg rest lowering and removal of pillows under RLE. Scoot to EOchair self using BUE, SIt> stand unable x2 attempts Max A x1, CONTINUOUS WAVE OPERATOR called nurse for 2nd person assist. Mod A x2 Sit> stand LUE on fWW, RUE pushing from chair arm. Pt tends to hop on LLE with RLE TTWB> questionable if maintaining TTWB, unable to maintain NWB daylight under RLE recommended. Pt able to reposition FWW self chair> bed then max verbal and tactile cues for reaching back for self slow descent to sit on bed. Brief rest unsupported sit. Sit>stand Mod A x2 with momentum used by pt, same LLE hop with heavy BUE WB on FWW, pt able hold RLE off floor during LLE WB but questionable WB status 15-25% during LLE repositioning and heavy WB on FWW. Cued for centering front chair when backing up and reach back Max A x1 for slow descent sit into chair. Assisted elevated BLE w/2 pillows under RLE. Pt had call light and all needs in reach before left. Friend remained in room. Pt showed CONTINUOUS WAVE OPERATOR has a lift recliner at home uses. CONTINUOUS WAVE OPERATOR educated set height successful and maintain so use muscle effort of complete coming to standing for strength for mobility going forward in future, verbalized understanding not to use it to come to complete standing. Gait Assessment Comments Gait Comments SPT hop on LLE using FWW Mod A x2 chair<> bed w / cues for maintaining NWB-TTWB on RLE. Stair Climbing Assessment Comments Stair Climbing Comments Unable to assess at this time. Will need to assess for safe DC home when able and maintain WB status on RLE. PT-Balance Assessment Sitting Balance and Reactions Static Sitting Balance Ability Good Dynamic Sitting Balance Ability Fair Standing Balance and Reactions Static Standing Balance Ability Good Dynamic Standing Balance Ability Fair Device Used FWW Balance Tests Single Limb Standing able to maintain NWB-TTWB RLE stationary stand w/ FWW M5 PT-IP Objective Assessments Start: 04/04/21 08:47 Freq: NEEDED Status: Active Protocol: Document 04/04/21 10:45 AW (Rec: 04/04/21 11:36 AW [id number]) Orientation Orientation/Cognition Level of Alertness Alert Orientation Name,Day of Week,Place, Situation Language Function Ability No Deficits Noted Safety Awareness Decreased Safety Awareness Gross Range of Motion Lower Extremity ROM Assessment Right Impaired Strength Lower Extremity Strength Assessment Right Impaired Hip 4/5 Knee 4+/5 Ankle NT Comments Strength Comments LLE grossly 4+/5 Sensation Assessment Sensation Gross Sensation Right LE Impaired,Left LE Impaired Comments Sensation Comments Neuropathy affects sensation distal BLE to ~10 cm above ankles and greatest deficits on plantar surfaces of feet. Muscle Tone Muscle Tone WNL Yes M6 PT-IP Treatment Start: 04/04/21 08:47 Freq: NEEDED Status: Active Protocol: Document 04/05/21 14:10 SP (Rec: 04/05/21 14:43 SP [id number]) Physical Therapy Treatment Education Education Provided Weight Bearing Status,Safety Other Treatments Other Treatment Performed Reviewed education on maintaining NWB- TTWB on RLE for proper healing safety. M7 PT-IP Assessment and Plan Start: 04/04/21 08:47 Freq: NEEDED Status: Active Protocol: Document 04/05/21 14:10 SP (Rec: 04/05/21 14:43 SP [id number]) PT Summary Assessment and Plan Potential Rehabilitation Potential Good Status of Condition at Evaluation Unstable Summary Impairments Pain,ROM,Strength,Balance, Sensation,Bed Mobility, Transfers,Gait Progress Towards Goals Progressing Toward Goals,Slow Progress due to Pain,Slow Progress due to Activity Tolerance,Slow Progress - Other Assessment Summary Pt requires Mod-Max A x2 for Sit<>stand and LLE hop pivot transfer using FWW, max cues for maintaining NWB- TTWB on RLE throughout mobiltiy. Pt will require and agreeable to [facility] skilled rehab to progress strength and functional independence in mobiltiy. WIll continue to assess progress. Goals Bed Mobility Goal Standby Assistance Transfer Goal Standby Assistance,Front Wheeled Walker Gait Goal Minimal Assistance,Front Wheel Walker Gait Distance 25 Other Goals - up/down 1 step with no rail and 2 steps with unilateral rail min assist Days to Meet Goals 10 Frequency of Treatment Frequency Of Treatment Twice a Day Treatment Plan Physical Therapy Treatment Plan Bed Mobility Training,Transfer Training,Gait Training, Therapeutic Exercise,Balance Retraining,Post Op Education, Discharge Planning,Hot or Cold Pack Other Recommendations and Next Treatment transfers, gait w/ chair Focus follow if maintain NWB-TTWB. Weight Bearing Status Weight Bearing Status Touch Down Weight Bearing Allowed Weight Bearing Amount (enter % RLE toe touch for balance. or #) (%) Recommendations To Nursing Amount of Assist Needed 2 Person Assist Discharge Recommendations PT Discharge Recommendations SNF Rehab Equipment Needed for Home Before wheelchair, BSC, hospital bed, Discharge ramp if and when safe to return home. Transportation Needs at Discharge Wheelchair/Cabulance
[2021-04-05 14:33] VITALS: PULSE 85; RESP 20; O2SAT 94
--- NOTE | 2021-04-05 14:57 | PC.NURSE ---
Addendum entered by Ashkan Mireles R.N. 04/05/21 15:48: Patient picked up by facility transport with all his belongings via wheelchair, with his brother following. Original Note: Report given to accepting nurse at [facility] at [facility]. Patient ready for discharge, he has no further questions or concerns at this time. Follow up appointment scheduled with Dr Chavez at [facility] April 21 at 1120am in [facility] office. Awaiting bead picker by transport from facility.
== END 2021-04-05 15:49 | DRG 493 ==
LOC: ED 08:15 → AC 08:17
PROVIDERS: Orthopaedic Surgery Foot and Ankle Surgery; Admitting Provider Family Medicine; Emergency Provider Emergency Medicine; PCP Internal Medicine; Referring Provider Emergency Medicine; Visit Provider Family Medicine
PROC: 0SSF04Z Reposition Right Ankle Joint with Internal Fixation Device, Open Approach (ICD-10-PCS; principal; 2021-04-03 12:15)
DX: S82.61XA Displaced fracture of lateral malleolus of right fibula, initial encounter for closed fracture (principal); Z68.41 Body mass index [BMI] 40.0-44.9, adult; J96.12 Chronic respiratory failure with hypercapnia; S82.391A Other fracture of lower end of right tibia, initial encounter for closed fracture; X58.XXXA Exposure to other specified factors, initial encounter; S90.821A Blister (nonthermal), right foot, initial encounter; J44.9 Chronic obstructive pulmonary disease, unspecified; E66.9 Obesity, unspecified; I10 Essential (primary) hypertension; E03.9 Hypothyroidism, unspecified; F32.9 Major depressive disorder, single episode, unspecified; K21.9 Gastro-esophageal reflux disease without esophagitis; Z20.822 Contact with and (suspected) exposure to COVID-19; Z87.891 Personal history of nicotine dependence; Z99.81 Dependence on supplemental oxygen
CPT/HCPCS: 36415; 73560; 73600; 80053; 82962; 83735; 85025; 87635; 94640; 94760; 94762; 97162; 97166; 97530; 97535; 99232; 99238; 99284; C9803; C9113; J0171; J0330; J0690; J1100; J1170; J1650; J1815; J2405; J2704; J3010

== ENCOUNTER → 2021-05-18 12:33 | Outpatient (CLI) | payer MEDICARE, OTHER, SELFPAY ==
[2021-03-29 08:48] VITALS: RESP 7
[2021-03-29 11:48] VITALS: PULSE 68; RESP 17; O2SAT 92
[2021-04-03 10:17] VITALS: BMI 40.7
[2021-05-18 15:08] LABS: Prostate Specific Antigen < 0.064 ng/mL (0.10-4.00)
== END ==
PROVIDERS: PCP Internal Medicine; Referring Provider Urology; Visit Provider Urology
DX: Z85.46 Personal history of malignant neoplasm of prostate (principal)
CPT/HCPCS: 36415; 84153

== ENCOUNTER → 2021-10-03 14:24 | Outpatient (CLI) | payer MEDICARE, OTHER, SELFPAY ==
[2021-06-17 16:15] VITALS: PULSE 68; RESP 17; RESP 7; O2SAT 92; BMI 40.7
--- NOTE | 2021-10-03 14:25 | DI.RAD.S_ITS ---
PROCEDURE: XR SHOULDER LT MIN 2V INDICATIONS: acute shoulder pain TECHNIQUE: 3 views of the shoulder were acquired. COMPARISON: [facility], CR, XR SHOULDER LT MIN 2V, 02/02/2020, 16:09. FINDINGS: Bones: There is extensive deformity of the humeral head neck secondary to remote comminuted fracture. In this setting, it is difficult to exclude a superimposed acute injury. There is severe glenohumeral joint degenerative change. Old healed rib fractures are noted. Soft tissues: No suspicious soft tissue calcifications. IMPRESSION: Severe glenohumeral joint degenerative change. Marked deformity of the humeral head neck from remote trauma. Cannot exclude occult superimposed injury. Consider further imaging with shoulder MRI if suspect acute fracture. Dictated by: Negro Shaikh M.D. on 10/03/2021 at 17:15 Approved by: Negro Shaikh M.D. on 10/03/2021 at 17:17
== END ==
PROVIDERS: Family Provider Internal Medicine; PCP Internal Medicine; Referring Provider Internal Medicine; Visit Provider Internal Medicine
DX: M25.512 Pain in left shoulder (principal); Z87.81 Personal history of (healed) traumatic fracture
CPT/HCPCS: 73030

== ENCOUNTER 2021-11-08 08:15 | Outpatient (RCR) | payer MEDICARE, OTHER, SELFPAY ==
[2021-06-17 16:15] VITALS: PULSE 68; RESP 17; RESP 7; O2SAT 92; BMI 40.7
--- NOTE | 2021-08-09 15:48 | PT.OIE ---
Current Diagnoses Pain in unspecified shoulder (08/09/21) Pain in right arm (08/09/21) Past Medical History (Last Updated 05/17/21 @ 16:27 by Blas Vargas MD) Acquired insufficiency of aortic valve (10/08/15) Acute hypercapnic respiratory failure Asthma Cellulitis (~02/2020) Chronic obstructive pulmonary disease (01/19/11) Cobalamin deficiency CTS (carpal tunnel syndrome) Duodenal ulcer Eczema Elevated d-dimer (~02/2020) Essential hypertension Former smoker Gastric ulcer History of arthroplasty of right knee (05/24/20) History of malignant neoplasm of prostate Hypothyroidism (08/21/14) Idiopathic peripheral neuropathy Leukocytosis (01/19/11) Low back pain of over 3 months duration (11/15/16) Obesity (01/19/11) Olecranon bursitis of left elbow Osteoarthritis Prostate cancer (2010) Status post cataract extraction of both eyes with insertion of intraocular lens Status post wrist surgery (2011) Thrombocytosis (01/19/11) Unilateral primary osteoarthritis, right knee Weakness of right lower extremity (11/15/16) Past Surgical History (Last Reviewed 04/04/21 @ 07:59 by Sonia Enriquez PA-C) History of arthroplasty of right knee (05/24/20) History of spinal fusion (2012) History of splenectomy (1975) Status post cataract extraction of both eyes with insertion of intraocular lens Status post wrist surgery (2011) Visit Care Team Role Provider Type Blas Vargas MD Attending Provider Physician Family Provider Primary Care Provider Referring Provider Specialty: Internal Medicine Address: [address] [place] [address], [address], [facility] Email: [email or web address] Physical Therapy Initial Evaluation PT-OP-A Visit Information Start: 08/08/21 17:25 Freq: Status: Active Protocol: Document 08/09/21 08:16 RAD[facility] (Rec: 08/09/21 08:47 SAK [id number]) Out-Patient Physical Therapy Visit Information Visit Information Visit Type Initial Evaluation Visit Start Time 08:15 Visit Stop Time 09:10 Total Visit Minutes 55 Visit Number 1 Evaluation Information Evaluation Date 08/09/21 PT-OP-B Current Condition Start: 08/08/21 17:25 Freq: Status: Active Protocol: Document 08/09/21 08:16 [facility] (Rec: 08/09/21 08:47 [facility] [id number]) Current Condition History of Current Condition Onset Date 2 months Current Complaints right scapula and shoulder pain History of Current Condition Reports persistent right sided scapula and shoulder pain. No precipitating event unless related to fall in March due to COPD; fractured right foot. Doesn't remember the fall. Taken to hospital, returned due to persistent foot pain and fracture discovered. Surgical repair then rehab for 1 month. Thinks right shoulder pain may have started in rehab. Using arms to compensate for ankle fracture, maybe using arms more than prior to injury. Difficulty reaching overhead or behind his back. Feels like a nerve being pinched. History bilateral TKA Prior Treatments and Tests no imaging takes Tylenol, no use of ice or heat. Future Testing and Treatments Planned returns to doctor after completes PT. Treatment Goals Patient/Caregiver Goals Minimize pain, return to usual level of function using right UE Prior Functional Status Baseline Function- ADL's Independent Baseline Function- Mobility Independent Baseline Function- Recreation/Hobbies photography, no limitations Current Functional Impairments (Reported) Functional Limitations- ADL's painful using right shoulder Functional Limitations- Recreation/ painful and limited Hobbies Personal Factors Other Personal Factors That May Effect fractured left shoulder s/p Therapy/Recovery fall 1 year ago, still some pain. Cervical fusion 2 levels PT-OP-C Subjective Start: 08/08/21 17:25 Freq: Status: Active Protocol: Document 08/09/21 08:16 [facility] (Rec: 08/10/21 15:47 [facility] [id number]) Patient Questionnaires Quick Dash- Upper Extremity Quick Dash UE Score 48 OP-PT Pain Assessment Pain Assessment Grid Paper Pain Assessment Grid Completed Yes Location right shoulder Intensity 8 Scale Used Numeric (0 - 10) Description Aching,Burning,Pinching, Stabbing,With Movement Frequency Frequent Pain Aggravating Factors ADL's,Activity Pain Alleviating Factors None Home Pain Medication Use Pain Medications Used Yes Pain Behaviors Pain Behaviors Facial Grimacing,Guarding, Wincing PT-OP-J Posture/Palpation/Skin Start: 08/08/21 17:25 Freq: Status: Active Protocol: Document 08/09/21 08:16 [facility] (Rec: 08/10/21 15:47 [facility] [id number]) Posture Evaluation Position Sitting Head/C-Spine Posture Forward Head T-Spine Posture Increased Kyphosis Shoulder Posture (L) Rounded,(R) Rounded Scapula Posture (L) Protracted,(R) Protracted Arm Posture (L) Internally Rotated,(R) Internally Rotated PT-OP-K Range of Motion Start: 08/08/21 17:25 Freq: Status: Active Protocol: Document 08/09/21 08:16 [facility] (Rec: 08/10/21 15:47 [facility] [id number]) Cervical Spine Range of Motion Cervical Spine Active Testing Position Sitting Flexion 55 Extension 10 Rotation Left 45 Rotation Right 50 Lateral Flexion Left 25 Lateral Flexion Right 30 ROM Limitations Soft Tissue Tightness Shoulder Goniometric Range of Motion Shoulder Right Shoulder ROM WFL No Testing Position Sitting Flexion 130 Extension 15 Abduction 128 External Rotation at 45 degrees 60 Abduction Internal Rotation Behind Back (text) L5 Left Shoulder ROM WFL No Testing Position Sitting Flexion 140 Extension 15 Abduction 145 External Rotation at 45 degrees 50 Abduction Internal Rotation Behind Back (text) L5 PT-OP-L Special Tests Start: 08/08/21 17:25 Freq: Status: Active Protocol: Document 08/09/21 08:16 [facility] (Rec: 08/10/21 15:47 [facility] [id number]) Special Tests Shoulder Special Tests Reese Mario Impingement Test Results positive joellen right greater than left Elevation Impingement Test Results positive joellen right greater than left Drop Arm Rotator Cuff Test Results negative PT-OP-M Strength Start: 08/08/21 17:25 Freq: Status: Active Protocol: Document 08/09/21 08:16 [facility] (Rec: 08/10/21 15:47 [facility] [id number]) Scapula Strength Scapula Manual Muscle Testing Right Elevation (C4) 4- Good- Adduction 4- Good- Abduction 4- Good- Depression 4- Good- Left Elevation (C4) 4 Good Adduction 4 Good Abduction 4 Good Depression 4 Good Shoulder Strength Shoulder Manual Muscle Testing Right Flexion 4- Good- Extension 4- Good- Abduction (C5) 3+ Fair+ External Rotation 4- Good- Internal Rotation 4- Good- Left Flexion 4 Good Extension 4 Good Adduction 4+ Good+ External Rotation 4- Good- Internal Rotation 4 Good Elbow/Forearm Strength Elbow and Forearm Manual Muscle Testing joellen Flexion (C6) 4 Good Extension (C7) 4 Good PT-OP-Q Treatments Start: 08/08/21 17:25 Freq: Status: Active Protocol: Document 08/09/21 08:16 [facility] (Rec: 08/10/21 15:47 [facility] [id number]) Self-Care/Home Management Treatment Education Patient Education Home Exercise Program,Pain Management,Posture Other Education issued written instructions PT-OP-R Modalities Start: 08/08/21 17:25 Freq: Status: Active Protocol: Document 08/09/21 08:16 [facility] (Rec: 08/10/21 15:47 [facility] [id number]) Hot Pack/Cold Pack Treatment Cold Pack Location joellen shoulders Patient Position Hooklying Treatment Duration (minutes) 10 Patient Tolerance Good PT-OP-T Assessment and Plan Start: 08/08/21 17:25 Freq: Status: Active Protocol: Document 08/09/21 08:16 [facility] (Rec: 08/10/21 15:47 [facility] [id number]) Physical Therapy Assessment Rehab Potential Rehabilitation Potential Good Evaluation Complexity Number of Personal Factors/Comorbidities 1-2 Number of Body Systems Impaired 3 Clinical Presentation at Evaluation Evolving Impairments Impairments Activity Tolerance,Pain, Posture,Strength Goals Three Impairment weakness right shoulder and postural impairment Short Term Goal (STG) patient will be instructed in HEP consisting of therapeutic exercises for right shoulder strengthening, ROM, and postural correction STG Duration 09/09/21 Halfway Goal (LTG) Patient will be independent with HEP and demonstrate improved right shoulder ROM to WFL and strength to at least 4+/5 all planes LTG Duration 09/09/21 Two Impairment decreased activity tolerance right shoulder Impairment QuickDash disability index score right shoulder 48% Enamel Buffer Goal (LTG) Decrease Quickdash score to no greater than 15% as measure of improved activity tolerance and improved functional use of right shoulder LTG Duration 10/09/21 One Impairment pain right shoulder as high as 8/10 Enamel Buffer Goal (LTG) Decrease pain to no greater than 2/10 with all usual activities including photography and his other art activities LTG Duration 10/09/21 Assessment Summary Assessment Patient presents to PT with function-limiting pain in his right shoulder which has worsened since a fall in March with subsequent use of assistive device and increased use of UE's for mobility. Evaluation reveals signs of and symptoms of shoulder impingement. He has significant postural impairment and muscle imbalances which appear to be highly contributory to his pain. Feel he would benefit from physical therapy to decrease his pain, improve his postural alignment and strength, and help him return to his prior level of function . POC was discussed with patient and he is in agreement . Physical Therapy Plan Frequency and Duration Frequency of Treatment 2x/Week Duration of Treatment 8 weeks Plan of Care Start Date 08/09/21 Plan of Care End Date 10/09/21 Therapeutic Interventions Therapeutic Interventions Aquatic Therapy,Home Exercise Program,Lymphedema Management, Neuromuscular Re-education, Patient/Caregiver Education, Self-Care/Home Management,Soft Tissue Mobilization,Taping, Therapeutic Activities, Therapeutic Exercises Modalities Cold Pack/Ice Massage,Electric Stimulation,Hot Packs, Infrared Therapy,Iontophoresis ,Ultrasound Next Visit Focus/Plan Next Note Type Treatment Note Next Visit Plan Review HEP, progress therapeutic exercises for postural correction, shoulder and scapular strengthening and ROM. Modalities and manual therapy as needed for pain.
--- NOTE | 2021-08-09 15:49 | PT.OPPOC ---
Physical, Occupational & Speech Therapy At [facility] Current Diagnoses Pain in unspecified shoulder (08/09/21) Pain in right arm (08/09/21) Visit Care Team Role Provider Type Blas Vargas MD Attending Provider Physician Family Provider Primary Care Provider Referring Provider Specialty: Internal Medicine Address: [address] [place] [address], [address], [facility] Email: [email or web address] Plan Of Care PT-OP-T Assessment and Plan Start: 08/08/21 17:25 Freq: Status: Active Protocol: Document 08/09/21 08:16 [facility] (Rec: 08/10/21 15:47 [facility] [id number]) Physical Therapy Assessment Rehab Potential Rehabilitation Potential Good Evaluation Complexity Number of Personal Factors/Comorbidities 1-2 Number of Body Systems Impaired 3 Clinical Presentation at Evaluation Evolving Impairments Impairments Activity Tolerance,Pain, Posture,Strength Goals Three Impairment weakness right shoulder and postural impairment Short Term Goal (STG) patient will be instructed in HEP consisting of therapeutic exercises for right shoulder strengthening, ROM, and postural correction STG Duration 09/09/21 Construction Laborer Goal (LTG) Patient will be independent with HEP and demonstrate improved right shoulder ROM to WFL and strength to at least 4+/5 all planes LTG Duration 09/09/21 Two Impairment decreased activity tolerance right shoulder Impairment QuickDash disability index score right shoulder 48% [facility] Goal (LTG) Decrease Quickdash score to no greater than 15% as measure of improved activity tolerance and improved functional use of right shoulder LTG Duration 10/09/21 One Impairment pain right shoulder as high as 8/10 [facility] Goal (LTG) Decrease pain to no greater than 2/10 with all usual activities including photography and his other art activities LTG Duration 10/09/21 Assessment Summary Assessment Patient presents to PT with function-limiting pain in his right shoulder which has worsened since a fall in March with subsequent use of assistive device and increased use of UE's for mobility. Evaluation reveals signs of and symptoms of shoulder impingement. He has significant postural impairment and muscle imbalances which appear to be highly contributory to his pain. Feel he would benefit from physical therapy to decrease his pain, improve his postural alignment and strength, and help him return to his prior level of function . POC was discussed with patient and he is in agreement . Physical Therapy Plan Frequency and Duration Frequency of Treatment 2x/Week Duration of Treatment 8 weeks Plan of Care Start Date 08/09/21 Plan of Care End Date 10/09/21 Therapeutic Interventions Therapeutic Interventions Aquatic Therapy,Home Exercise Program,Lymphedema Management, Neuromuscular Re-education, Patient/Caregiver Education, Self-Care/Home Management,Soft Tissue Mobilization,Taping, Therapeutic Activities, Therapeutic Exercises Modalities Cold Pack/Ice Massage,Electric Stimulation,Hot Packs, Infrared Therapy,Iontophoresis ,Ultrasound Next Visit Focus/Plan Next Note Type Treatment Note Next Visit Plan Review HEP, progress therapeutic exercises for postural correction, shoulder and scapular strengthening and ROM. Modalities and manual therapy as needed for pain. Plan of Care Dates Plan of Care Start Date 08/09/21 Plan of Care End Date 10/09/21 Electronically Signed by: La Palacio, PT 08/10/21 0950 If you are in agreement with this Plan of Care, please return a signed and dated copy. I have reviewed this Plan of Care and certify that the skilled therapy services above are required to meet the patient?s needs. Physician Signature Date Printed Name and Credentials Clinical Instructor Signature Printed Name and Credentials
--- NOTE | 2021-08-16 16:53 | PT.OTN ---
Current Diagnoses Pain in unspecified shoulder (08/16/21) Pain in right arm (08/16/21) Abnormal posture (08/16/21) Weakness (08/16/21) Physical Therapy Treatment Note PT-OP-A Visit Information Start: 08/08/21 17:25 Freq: Status: Active Protocol: Document 08/16/21 08:10 [facility] (Rec: 08/16/21 08:58 [facility] [id number]) Out-Patient Physical Therapy Visit Information Visit Information Visit Type Treatment Note Visit Start Time 08:15 Visit Stop Time 09:10 Total Visit Minutes 55 Visit Number 2 Evaluation Information Evaluation Date 08/09/21 PT-OP-B Current Condition Start: 08/08/21 17:25 Freq: Status: Active Protocol: Document 08/16/21 08:10 [facility] (Rec: 08/16/21 08:58 [facility] [id number]) Current Condition History of Current Condition Onset Date 2 months Current Complaints right scapula and shoulder pain History of Current Condition Reports persistent right sided scapula and shoulder pain. No precipitating event unless related to fall in March due to COPD; fractured right foot. Doesn't remember the fall. Taken to hospital, returned due to persistent foot pain and fracture discovered. Surgical repair then rehab for 1 month. Thinks right shoulder pain may have started in rehab. Using arms to compensate for ankle fracture, maybe using arms more than prior to injury. Difficulty reaching overhead or behind his back. Feels like a nerve being pinched. History bilateral TKA Prior Treatments and Tests no imaging takes Tylenol, no use of ice or heat. Future Testing and Treatments Planned returns to doctor after completes PT. PT-OP-C Subjective Start: 08/08/21 17:25 Freq: Status: Active Protocol: Document 08/16/21 08:10 [facility] (Rec: 08/16/21 08:58 [facility] [id number]) OP-PT Subjective Patient Comments Patient Comments No problems with exercises, doing at least 1x/day. PT-OP-J Posture/Palpation/Skin Start: 08/08/21 17:25 Freq: Status: Active Protocol: Document 08/09/21 08:16 [facility] (Rec: 08/10/21 15:47 [facility] [id number]) Posture Evaluation Position Sitting Head/C-Spine Posture Forward Head T-Spine Posture Increased Kyphosis Shoulder Posture (L) Rounded,(R) Rounded Scapula Posture (L) Protracted,(R) Protracted Arm Posture (L) Internally Rotated,(R) Internally Rotated PT-OP-K Range of Motion Start: 08/08/21 17:25 Freq: Status: Active Protocol: Document 08/09/21 08:16 [facility] (Rec: 08/10/21 15:47 [facility] [id number]) Cervical Spine Range of Motion Cervical Spine Active Testing Position Sitting Flexion 55 Extension 10 Rotation Left 45 Rotation Right 50 Lateral Flexion Left 25 Lateral Flexion Right 30 ROM Limitations Soft Tissue Tightness Shoulder Goniometric Range of Motion Shoulder Right Shoulder ROM WFL No Testing Position Sitting Flexion 130 Extension 15 Abduction 128 External Rotation at 45 degrees 60 Abduction Internal Rotation Behind Back (text) L5 Left Shoulder ROM WFL No Testing Position Sitting Flexion 140 Extension 15 Abduction 145 External Rotation at 45 degrees 50 Abduction Internal Rotation Behind Back (text) L5 PT-OP-L Special Tests Start: 08/08/21 17:25 Freq: Status: Active Protocol: Document 08/09/21 08:16 [facility] (Rec: 08/10/21 15:47 [facility] [id number]) Special Tests Shoulder Special Tests Reese Mario Impingement Test Results positive joellen right greater than left Elevation Impingement Test Results positive joellen right greater than left Drop Arm Rotator Cuff Test Results negative PT-OP-M Strength Start: 08/08/21 17:25 Freq: Status: Active Protocol: Document 08/09/21 08:16 [facility] (Rec: 08/10/21 15:47 [facility] [id number]) Scapula Strength Scapula Manual Muscle Testing Right Elevation (C4) 4- Good- Adduction 4- Good- Abduction 4- Good- Depression 4- Good- Left Elevation (C4) 4 Good Adduction 4 Good Abduction 4 Good Depression 4 Good Shoulder Strength Shoulder Manual Muscle Testing Right Flexion 4- Good- Extension 4- Good- Abduction (C5) 3+ Fair+ External Rotation 4- Good- Internal Rotation 4- Good- Left Flexion 4 Good Extension 4 Good Adduction 4+ Good+ External Rotation 4- Good- Internal Rotation 4 Good Elbow/Forearm Strength Elbow and Forearm Manual Muscle Testing joellen Flexion (C6) 4 Good Extension (C7) 4 Good PT-OP-Q Treatments Start: 08/08/21 17:25 Freq: Status: Active Protocol: Document 08/16/21 08:10 [facility] (Rec: 08/16/21 08:58 [facility] [id number]) Therapeutic Exercises Supine Exercises serratus punch Equipment Used wand Reps/Minutes 10x shoulder flexion Equipment Used wand Reps/Minutes 10x Sidelying Exercises open book Side bilateral Reps/Minutes 5 Comments verbal and manual cues for segmental movement Sitting Exercises pulleys Sitting Exercise Name flexion and scaption Reps/Minutes 10x Comments cues for slow speed, deep breath at end range Standing Exercises shoulder add Equipment Used L1 TB Reps/Minutes 10x Comments verbal and tactile cues row, shoulder ext Equipment Used L1 TB Reps/Minutes 10x Comments verbal and tactile cues shoulder ER Equipment Used L1 TB Reps/Minutes 10x shoulder rolls Reps/Minutes 5x Comments cues for chin tuck with shld roll chin tuck Reps/Minutes 5x5 Manual Therapy Treatment Soft Tissue Mobilization LS, rhomboids Mobilization Type Myofascial Release,Strumming, Sustained Pressure Intensity/Depth Moderate Body Position Sidelying Self-Care/Home Management Treatment Education Patient Education Home Exercise Program,Pain Management,Posture Other Education updated written HEP use of raquetball for self- massage PT-OP-R Modalities Start: 08/08/21 17:25 Freq: Status: Active Protocol: Document 08/16/21 08:10 [facility] (Rec: 08/17/21 16:53 [facility] [id number]) Hot Pack/Cold Pack Treatment Cold Pack Location right shoulder Patient Position Hooklying Treatment Duration (minutes) 10 Patient Tolerance Good PT-OP-T Assessment and Plan Start: 08/08/21 17:25 Freq: Status: Active Protocol: Document 08/16/21 08:10 [facility] (Rec: 08/16/21 08:58 [facility] [id number]) Physical Therapy Assessment Goals Three Impairment weakness right shoulder and postural impairment Short Term Goal (STG) patient will be instructed in HEP consisting of therapeutic exercises for right shoulder strengthening, ROM, and postural correction STG Duration 09/09/21 Nursing Home Goal (LTG) Patient will be independent with HEP and demonstrate improved right shoulder ROM to WFL and strength to at least 4+/5 all planes LTG Duration 09/09/21 Two Impairment decreased activity tolerance right shoulder Impairment QuickDash disability index score right shoulder 48% Nursing Home Goal (LTG) Decrease Quickdash score to no greater than 15% as measure of improved activity tolerance and improved functional use of right shoulder LTG Duration 10/09/21 One Impairment pain right shoulder as high as 8/10 Family Readiness Support Assistant Goal (LTG) Decrease pain to no greater than 2/10 with all usual activities including photography and his other art activities LTG Duration 10/09/21 Assessment Summary Assessment Good compliance with HEP, cues for inhib of UT with theraband ex. Tender inf angle scapula with trigger point rhomboids. Patient shown self-massage with good understanding verbalized. Mod cues for segmental movement with open book as tendency to reach with hand only. Physical Therapy Plan Frequency and Duration Frequency of Treatment 2x/Week Duration of Treatment 8 weeks Plan of Care Start Date 08/09/21 Plan of Care End Date 10/09/21 Therapeutic Interventions Therapeutic Interventions Aquatic Therapy,Home Exercise Program,Lymphedema Management, Neuromuscular Re-education, Patient/Caregiver Education, Self-Care/Home Management,Soft Tissue Mobilization,Taping, Therapeutic Activities, Therapeutic Exercises Modalities Cold Pack/Ice Massage,Electric Stimulation,Hot Packs, Infrared Therapy,Iontophoresis ,Ultrasound Next Visit Focus/Plan Next Note Type Treatment Note Next Visit Plan consider starting with recumbant elliptical, add supine theraband ex , wall push-up as tolerated.
--- NOTE | 2021-08-18 10:09 | PT.OTN ---
Current Diagnoses Pain in unspecified shoulder (08/18/21) Pain in right arm (08/18/21) Abnormal posture (08/18/21) Weakness (08/18/21) Physical Therapy Treatment Note PT-OP-A Visit Information Start: 08/08/21 17:25 Freq: Status: Active Protocol: Document 08/18/21 08:14 [facility] (Rec: 08/18/21 09:01 [facility] [id number]) Out-Patient Physical Therapy Visit Information Visit Information Visit Type Treatment Note Visit Start Time 08:15 Visit Stop Time 09:10 Total Visit Minutes 55 Visit Number 3 Evaluation Information Evaluation Date 08/09/21 PT-OP-B Current Condition Start: 08/08/21 17:25 Freq: Status: Active Protocol: Document 08/18/21 08:14 [facility] (Rec: 08/18/21 09:01 [facility] [id number]) Current Condition History of Current Condition Onset Date 2 months Current Complaints right scapula and shoulder pain History of Current Condition Reports persistent right sided scapula and shoulder pain. No precipitating event unless related to fall in March due to COPD; fractured right foot. Doesn't remember the fall. Taken to hospital, returned due to persistent foot pain and fracture discovered. Surgical repair then rehab for 1 month. Thinks right shoulder pain may have started in rehab. Using arms to compensate for ankle fracture, maybe using arms more than prior to injury. Difficulty reaching overhead or behind his back. Feels like a nerve being pinched. History bilateral TKA Prior Treatments and Tests no imaging takes Tylenol, no use of ice or heat. Future Testing and Treatments Planned returns to doctor after completes PT. PT-OP-C Subjective Start: 08/08/21 17:25 Freq: Status: Active Protocol: Document 08/18/21 08:14 [facility] (Rec: 08/18/21 09:01 [facility] [id number]) OP-PT Subjective Patient Comments Patient Comments Not bad after last PT treatment. Today struggling with his COPD. Willing to try Sci-Fit. PT-OP-J Posture/Palpation/Skin Start: 08/08/21 17:25 Freq: Status: Active Protocol: Document 08/09/21 08:16 [facility] (Rec: 08/10/21 15:47 [facility] [id number]) Posture Evaluation Position Sitting Head/C-Spine Posture Forward Head T-Spine Posture Increased Kyphosis Shoulder Posture (L) Rounded,(R) Rounded Scapula Posture (L) Protracted,(R) Protracted Arm Posture (L) Internally Rotated,(R) Internally Rotated PT-OP-K Range of Motion Start: 08/08/21 17:25 Freq: Status: Active Protocol: Document 08/09/21 08:16 [facility] (Rec: 08/10/21 15:47 [facility] [id number]) Cervical Spine Range of Motion Cervical Spine Active Testing Position Sitting Flexion 55 Extension 10 Rotation Left 45 Rotation Right 50 Lateral Flexion Left 25 Lateral Flexion Right 30 ROM Limitations Soft Tissue Tightness Shoulder Goniometric Range of Motion Shoulder Right Shoulder ROM WFL No Testing Position Sitting Flexion 130 Extension 15 Abduction 128 External Rotation at 45 degrees 60 Abduction Internal Rotation Behind Back (text) L5 Left Shoulder ROM WFL No Testing Position Sitting Flexion 140 Extension 15 Abduction 145 External Rotation at 45 degrees 50 Abduction Internal Rotation Behind Back (text) L5 PT-OP-L Special Tests Start: 08/08/21 17:25 Freq: Status: Active Protocol: Document 08/09/21 08:16 [facility] (Rec: 08/10/21 15:47 [facility] [id number]) Special Tests Shoulder Special Tests Reese Mario Impingement Test Results positive joellen right greater than left Elevation Impingement Test Results positive joellen right greater than left Drop Arm Rotator Cuff Test Results negative PT-OP-M Strength Start: 08/08/21 17:25 Freq: Status: Active Protocol: Document 08/09/21 08:16 [facility] (Rec: 08/10/21 15:47 [facility] [id number]) Scapula Strength Scapula Manual Muscle Testing Right Elevation (C4) 4- Good- Adduction 4- Good- Abduction 4- Good- Depression 4- Good- Left Elevation (C4) 4 Good Adduction 4 Good Abduction 4 Good Depression 4 Good Shoulder Strength Shoulder Manual Muscle Testing Right Flexion 4- Good- Extension 4- Good- Abduction (C5) 3+ Fair+ External Rotation 4- Good- Internal Rotation 4- Good- Left Flexion 4 Good Extension 4 Good Adduction 4+ Good+ External Rotation 4- Good- Internal Rotation 4 Good Elbow/Forearm Strength Elbow and Forearm Manual Muscle Testing joellen Flexion (C6) 4 Good Extension (C7) 4 Good PT-OP-Q Treatments Start: 08/08/21 17:25 Freq: Status: Active Protocol: Document 08/18/21 08:14 [facility] (Rec: 08/18/21 09:01 [facility] [id number]) Cardio Equipment Recumbent Stepper (Sci-Fit) Duration (Minutes) 5 Resistance 1 Seat Position 12 Therapeutic Exercises Supine Exercises hor ab Equipment Used L1 TB Reps/Minutes 10x serratus punch Equipment Used wand Reps/Minutes 10x shoulder flexion Equipment Used wand Reps/Minutes 10x Comments painful Sidelying Exercises open book Side bilateral Reps/Minutes 5 Comments verbal and manual cues for segmental movement Sitting Exercises pulleys Sitting Exercise Name flexion and scaption Reps/Minutes 10x Comments cues for slow speed, deep breath at end range Standing Exercises wall push up Reps/Minutes 10x shoulder adduction Resistance L1 TB Reps/Minutes 10x shoulder ER Equipment Used L1 TB Reps/Minutes 10x shoulder rolls Standing Exercise Name sitting Reps/Minutes 5x Comments cues for chin tuck with shld roll chin tuck Standing Exercise Name sitting today Reps/Minutes 5x Manual Therapy Treatment Soft Tissue Mobilization LS, rhomboids Mobilization Type Myofascial Release,Strumming, Sustained Pressure Intensity/Depth Moderate Body Position Sidelying Self-Care/Home Management Treatment Education Patient Education Home Exercise Program,Pain Management,Posture Other Education updated written HEP review use of raquetball or tennis ball PT-OP-R Modalities Start: 08/08/21 17:25 Freq: Status: Active Protocol: Document 08/18/21 08:14 [facility] (Rec: 08/18/21 09:01 [facility] [id number]) Hot Pack/Cold Pack Treatment Cold Pack Location right shoulder Patient Position Hooklying Treatment Duration (minutes) 10 Patient Tolerance Good PT-OP-T Assessment and Plan Start: 08/08/21 17:25 Freq: Status: Active Protocol: Document 08/18/21 08:14 [facility] (Rec: 08/18/21 09:01 [facility] [id number]) Physical Therapy Assessment Goals Three Impairment weakness right shoulder and postural impairment Short Term Goal (STG) patient will be instructed in HEP consisting of therapeutic exercises for right shoulder strengthening, ROM, and postural correction STG Duration 09/09/21 [place]er Goal (LTG) Patient will be independent with HEP and demonstrate improved right shoulder ROM to WFL and strength to at least 4+/5 all planes LTG Duration 09/09/21 Two Impairment decreased activity tolerance right shoulder Impairment QuickDash disability index score right shoulder 48% [place]er Goal (LTG) Decrease Quickdash score to no greater than 15% as measure of improved activity tolerance and improved functional use of right shoulder LTG Duration 10/09/21 One Impairment pain right shoulder as high as 8/10 [place] [employer]er Goal (LTG) Decrease pain to no greater than 2/10 with all usual activities including photography and his other art activities LTG Duration 10/09/21 Assessment Summary Assessment Good compliance to HEP, good understanding of self-massage with tennis ball. Cues for postural correction and correct muscle activation sequencing. Needs continued strengthening of posterior chain. Physical Therapy Plan Frequency and Duration Frequency of Treatment 2x/Week Duration of Treatment 8 weeks Plan of Care Start Date 08/09/21 Plan of Care End Date 10/09/21 Therapeutic Interventions Therapeutic Interventions Aquatic Therapy,Home Exercise Program,Lymphedema Management, Neuromuscular Re-education, Patient/Caregiver Education, Self-Care/Home Management,Soft Tissue Mobilization,Taping, Therapeutic Activities, Therapeutic Exercises Modalities Cold Pack/Ice Massage,Electric Stimulation,Hot Packs, Infrared Therapy,Iontophoresis ,Ultrasound Next Visit Focus/Plan Next Note Type Treatment Note Next Visit Plan ASsess response to last session, progress ther ex as tolerated for strengthening, stabilization.
--- NOTE | 2021-08-30 16:48 | PT.OTN ---
Current Diagnoses Pain in unspecified shoulder (08/30/21) Pain in right arm (08/30/21) Abnormal posture (08/30/21) Weakness (08/30/21) Physical Therapy Treatment Note PT-OP-A Visit Information Start: 08/08/21 17:25 Freq: Status: Active Protocol: Document 08/30/21 08:15 [facility] (Rec: 08/30/21 09:03 [facility] [id number]) Out-Patient Physical Therapy Visit Information Visit Information Visit Type Treatment Note Visit Start Time 08:15 Visit Stop Time 09:10 Total Visit Minutes 55 Visit Number 4 Evaluation Information Evaluation Date 08/09/21 PT-OP-B Current Condition Start: 08/08/21 17:25 Freq: Status: Active Protocol: Document 08/30/21 08:15 [facility] (Rec: 08/30/21 09:03 [facility] [id number]) Current Condition History of Current Condition Onset Date 2 months Current Complaints right scapula and shoulder pain History of Current Condition Reports persistent right sided scapula and shoulder pain. No precipitating event unless related to fall in March due to COPD; fractured right foot. Doesn't remember the fall. Taken to hospital, returned due to persistent foot pain and fracture discovered. Surgical repair then rehab for 1 month. Thinks right shoulder pain may have started in rehab. Using arms to compensate for ankle fracture, maybe using arms more than prior to injury. Difficulty reaching overhead or behind his back. Feels like a nerve being pinched. History bilateral TKA Prior Treatments and Tests no imaging takes Tylenol, no use of ice or heat. Future Testing and Treatments Planned returns to doctor after completes PT. PT-OP-C Subjective Start: 08/08/21 17:25 Freq: Status: Active Protocol: Document 08/30/21 08:15 [facility] (Rec: 08/30/21 09:03 [facility] [id number]) OP-PT Subjective Patient Comments Patient Comments Feels right shoulder improved, left shoulder has been the worst recently. Has been trying to sleep on his left side but has increased neurological symptoms left UE. PT-OP-J Posture/Palpation/Skin Start: 08/08/21 17:25 Freq: Status: Active Protocol: Document 08/09/21 08:16 [facility] (Rec: 08/10/21 15:47 [facility] [id number]) Posture Evaluation Position Sitting Head/C-Spine Posture Forward Head T-Spine Posture Increased Kyphosis Shoulder Posture (L) Rounded,(R) Rounded Scapula Posture (L) Protracted,(R) Protracted Arm Posture (L) Internally Rotated,(R) Internally Rotated PT-OP-K Range of Motion Start: 08/08/21 17:25 Freq: Status: Active Protocol: Document 08/09/21 08:16 [facility] (Rec: 08/10/21 15:47 [facility] [id number]) Cervical Spine Range of Motion Cervical Spine Active Testing Position Sitting Flexion 55 Extension 10 Rotation Left 45 Rotation Right 50 Lateral Flexion Left 25 Lateral Flexion Right 30 ROM Limitations Soft Tissue Tightness Shoulder Goniometric Range of Motion Shoulder Right Shoulder ROM WFL No Testing Position Sitting Flexion 130 Extension 15 Abduction 128 External Rotation at 45 degrees 60 Abduction Internal Rotation Behind Back (text) L5 Left Shoulder ROM WFL No Testing Position Sitting Flexion 140 Extension 15 Abduction 145 External Rotation at 45 degrees 50 Abduction Internal Rotation Behind Back (text) L5 PT-OP-L Special Tests Start: 08/08/21 17:25 Freq: Status: Active Protocol: Document 08/09/21 08:16 [facility] (Rec: 08/10/21 15:47 [facility] [id number]) Special Tests Shoulder Special Tests Reese Mario Impingement Test Results positive joellen right greater than left Elevation Impingement Test Results positive joellen right greater than left Drop Arm Rotator Cuff Test Results negative PT-OP-M Strength Start: 08/08/21 17:25 Freq: Status: Active Protocol: Document 08/09/21 08:16 [facility] (Rec: 08/10/21 15:47 [facility] [id number]) Scapula Strength Scapula Manual Muscle Testing Right Elevation (C4) 4- Good- Adduction 4- Good- Abduction 4- Good- Depression 4- Good- Left Elevation (C4) 4 Good Adduction 4 Good Abduction 4 Good Depression 4 Good Shoulder Strength Shoulder Manual Muscle Testing Right Flexion 4- Good- Extension 4- Good- Abduction (C5) 3+ Fair+ External Rotation 4- Good- Internal Rotation 4- Good- Left Flexion 4 Good Extension 4 Good Adduction 4+ Good+ External Rotation 4- Good- Internal Rotation 4 Good Elbow/Forearm Strength Elbow and Forearm Manual Muscle Testing joellen Flexion (C6) 4 Good Extension (C7) 4 Good PT-OP-Q Treatments Start: 08/08/21 17:25 Freq: Status: Active Protocol: Document 08/30/21 08:15 [facility] (Rec: 08/30/21 09:03 [facility] [id number]) Cardio Equipment Recumbent Stepper (Sci-Fit) Duration (Minutes) 6 Resistance 1.5 Seat Position 12 Other cues for relaxed UT, initially no UE's Therapeutic Exercises Sitting Exercises UT stretch Reps/Minutes 3x Comments lateral, post fibers, ant fibers pulleys Sitting Exercise Name flexion and scaption; painfree rom Equipment Used mirror Reps/Minutes 10x Comments cues for slow speed, deep breath at end range Standing Exercises shoulder IR. Equipment Used L1 TB Reps/Minutes 10x shoulder add Equipment Used L1 TB Reps/Minutes 10x Comments verbal and tactile cues row, shoulder ext Equipment Used L1 TB Reps/Minutes 10x Comments verbal and tactile cues shoulder ER Equipment Used L1 TB Reps/Minutes 10x shoulder rolls Standing Exercise Name up, back, down, hold Equipment Used mirror Reps/Minutes 10xx Comments cues for chin tuck with shld roll Manual Therapy Treatment Soft Tissue Mobilization RC Mobilization Type Cross-Friction LS, rhomboids Mobilization Type Myofascial Release,Strumming, Sustained Pressure Intensity/Depth Moderate Body Position Sidelying Self-Care/Home Management Treatment Education Patient Education Home Exercise Program,Pain Management,Posture Other Education updated written HEP review use of raquetball or tennis ball PT-OP-R Modalities Start: 08/08/21 17:25 Freq: Status: Active Protocol: Document 08/30/21 08:15 [facility] (Rec: 08/30/21 09:03 [facility] [id number]) Hot Pack/Cold Pack Treatment Cold Pack Location right shoulder Patient Position Hooklying Treatment Duration (minutes) 10 Patient Tolerance Good PT-OP-T Assessment and Plan Start: 08/08/21 17:25 Freq: Status: Active Protocol: Document 08/30/21 08:15 [facility] (Rec: 08/30/21 09:03 [facility] [id number]) Physical Therapy Assessment Goals Three Impairment weakness right shoulder and postural impairment Short Term Goal (STG) patient will be instructed in HEP consisting of therapeutic exercises for right shoulder strengthening, ROM, and postural correction STG Duration 09/09/21 Long-Term Goal (LTG) Patient will be independent with HEP and demonstrate improved right shoulder ROM to WFL and strength to at least 4+/5 all planes LTG Duration 09/09/21 Two Impairment decreased activity tolerance right shoulder Impairment QuickDash disability index score right shoulder 48% Long-Term Goal (LTG) Decrease Quickdash score to no greater than 15% as measure of improved activity tolerance and improved functional use of right shoulder LTG Duration 10/09/21 One Impairment pain right shoulder as high as 8/10 Long-Term Goal (LTG) Decrease pain to no greater than 2/10 with all usual activities including photography and his other art activities LTG Duration 10/09/21 Assessment Summary Assessment Improved right shoulder pain, compensation with left has resulted in increased pain left. Frequent postural cues and use of mirror for improved alignment and inhibition of UT. Improved awarness of his postural alignment and need for UT inhib for improved shoulder function. Physical Therapy Plan Frequency and Duration Frequency of Treatment 2x/Week Duration of Treatment 8 weeks Plan of Care Start Date 08/09/21 Plan of Care End Date 10/09/21 Therapeutic Interventions Therapeutic Interventions Aquatic Therapy,Home Exercise Program,Lymphedema Management, Neuromuscular Re-education, Patient/Caregiver Education, Self-Care/Home Management,Soft Tissue Mobilization,Taping, Therapeutic Activities, Therapeutic Exercises Modalities Cold Pack/Ice Massage,Electric Stimulation,Hot Packs, Infrared Therapy,Iontophoresis ,Ultrasound Next Visit Focus/Plan Next Note Type Treatment Note Next Visit Plan continue with cues for ex in pain-free ROM with use of mirror and verbal and tactile cues.
--- NOTE | 2021-09-01 12:53 | PT.OTN ---
Current Diagnoses Pain in unspecified shoulder (09/01/21) Pain in right arm (09/01/21) Abnormal posture (09/01/21) Weakness (09/01/21) Physical Therapy Treatment Note PT-OP-A Visit Information Start: 08/08/21 17:25 Freq: Status: Active Protocol: Document 09/01/21 08:09 [facility]AK (Rec: 09/01/21 09:04 [facility] [id number]) Out-Patient Physical Therapy Visit Information Visit Information Visit Type Treatment Note Visit Start Time 08:15 Visit Stop Time 09:10 Total Visit Minutes 55 Visit Number 5 Evaluation Information Evaluation Date 08/09/21 PT-OP-B Current Condition Start: 08/08/21 17:25 Freq: Status: Active Protocol: Document 09/01/21 08:09 SAK (Rec: 09/01/21 09:04 [facility] [id number]) Current Condition History of Current Condition Onset Date 2 months Current Complaints right scapula and shoulder pain History of Current Condition Reports persistent right sided scapula and shoulder pain. No precipitating event unless related to fall in March due to COPD; fractured right foot. Doesn't remember the fall. Taken to hospital, returned due to persistent foot pain and fracture discovered. Surgical repair then rehab for 1 month. Thinks right shoulder pain may have started in rehab. Using arms to compensate for ankle fracture, maybe using arms more than prior to injury. Difficulty reaching overhead or behind his back. Feels like a nerve being pinched. History bilateral TKA Prior Treatments and Tests no imaging takes Tylenol, no use of ice or heat. Future Testing and Treatments Planned returns to doctor after completes PT. PT-OP-C Subjective Start: 08/08/21 17:25 Freq: Status: Active Protocol: Document 09/01/21 08:09 SAK (Rec: 09/01/21 09:04 [facility] [id number]) OP-PT Subjective Patient Comments Patient Comments Left shoulder remains the worst, trying to work on posture, relaxing UT. PT-OP-J Posture/Palpation/Skin Start: 08/08/21 17:25 Freq: Status: Active Protocol: Document 08/09/21 08:16 SAK (Rec: 08/10/21 15:47 [facility] [id number]) Posture Evaluation Position Sitting Head/C-Spine Posture Forward Head T-Spine Posture Increased Kyphosis Shoulder Posture (L) Rounded,(R) Rounded Scapula Posture (L) Protracted,(R) Protracted Arm Posture (L) Internally Rotated,(R) Internally Rotated PT-OP-K Range of Motion Start: 08/08/21 17:25 Freq: Status: Active Protocol: Document 08/09/21 08:16 [facility] (Rec: 08/10/21 15:47 [facility] [id number]) Cervical Spine Range of Motion Cervical Spine Active Testing Position Sitting Flexion 55 Extension 10 Rotation Left 45 Rotation Right 50 Lateral Flexion Left 25 Lateral Flexion Right 30 ROM Limitations Soft Tissue Tightness Shoulder Goniometric Range of Motion Shoulder Right Shoulder ROM WFL No Testing Position Sitting Flexion 130 Extension 15 Abduction 128 External Rotation at 45 degrees 60 Abduction Internal Rotation Behind Back (text) L5 Left Shoulder ROM WFL No Testing Position Sitting Flexion 140 Extension 15 Abduction 145 External Rotation at 45 degrees 50 Abduction Internal Rotation Behind Back (text) L5 PT-OP-L Special Tests Start: 08/08/21 17:25 Freq: Status: Active Protocol: Document 08/09/21 08:16 [facility] (Rec: 08/10/21 15:47 [facility] [id number]) Special Tests Shoulder Special Tests Reese Mario Impingement Test Results positive joellen right greater than left Elevation Impingement Test Results positive joellen right greater than left Drop Arm Rotator Cuff Test Results negative PT-OP-M Strength Start: 08/08/21 17:25 Freq: Status: Active Protocol: Document 08/09/21 08:16 [facility] (Rec: 08/10/21 15:47 [facility] [id number]) Scapula Strength Scapula Manual Muscle Testing Right Elevation (C4) 4- Good- Adduction 4- Good- Abduction 4- Good- Depression 4- Good- Left Elevation (C4) 4 Good Adduction 4 Good Abduction 4 Good Depression 4 Good Shoulder Strength Shoulder Manual Muscle Testing Right Flexion 4- Good- Extension 4- Good- Abduction (C5) 3+ Fair+ External Rotation 4- Good- Internal Rotation 4- Good- Left Flexion 4 Good Extension 4 Good Adduction 4+ Good+ External Rotation 4- Good- Internal Rotation 4 Good Elbow/Forearm Strength Elbow and Forearm Manual Muscle Testing joellen Flexion (C6) 4 Good Extension (C7) 4 Good PT-OP-Q Treatments Start: 08/08/21 17:25 Freq: Status: Active Protocol: Document 09/01/21 08:09 [facility] (Rec: 09/01/21 09:04 [facility] [id number]) Cardio Equipment Recumbent Stepper (Sci-Fit) Duration (Minutes) 6 Resistance 1.5 Seat Position 12 Other cues for relaxed UT, initially no UE's Therapeutic Exercises Sidelying Exercises shoulder ER Comments painful Sitting Exercises UT stretch Reps/Minutes 3x Comments lateral, post fibers, ant fibers pulleys Sitting Exercise Name flexion and scaption; painfree rom Equipment Used mirror Reps/Minutes 10x Comments cues for slow speed, deep breath at end range Standing Exercises row, shoulder ext Equipment Used L1 TB Reps/Minutes 10x Comments verbal and tactile cues shoulder ER Equipment Used L1 TB Reps/Minutes 10x shoulder rolls Standing Exercise Name up, back, down, hold Equipment Used mirror Reps/Minutes 10xx Comments cues for chin tuck with shld roll Manual Therapy Treatment Soft Tissue Mobilization subscap Body Location trigger points Mobilization Type Sustained Pressure,Trigger Point Release Body Position Hooklying Comments next session Taping left shoulder Type of Tape kinesiotape Comments I strip T10 across inferior scapular angle to front of shoulder 50% stretch, I strip left UT for inhibition paper off tension, Y strip deltoid insertion ant/post deltoid with 50% stretch, I strip T3 transverse process to ant/lat shoulder with 50% tension. Patient instructed to leave on for up to 5 days if not irritating skin or causing increase in symptoms. Remove if needed, careful removal. Viola dry after shower. Self-Care/Home Management Treatment Education Patient Education Home Exercise Program,Pain Management,Posture PT-OP-R Modalities Start: 08/08/21 17:25 Freq: Status: Active Protocol: Document 09/01/21 08:09 [facility] (Rec: 09/01/21 09:04 [facility] [id number]) Hot Pack/Cold Pack Treatment Hot Pack Location left shoulder and upper thoracic spine/scapular region Patient Position Sitting Treatment Duration (minutes) 15 Patient Tolerance Good PT-OP-T Assessment and Plan Start: 08/08/21 17:25 Freq: Status: Active Protocol: Document 09/01/21 08:09 [facility] (Rec: 09/01/21 09:04 [facility] [id number]) Physical Therapy Assessment Goals Three Impairment weakness right shoulder and postural impairment Short Term Goal (STG) patient will be instructed in HEP consisting of therapeutic exercises for right shoulder strengthening, ROM, and postural correction STG Duration 09/09/21 Custodial Goal (LTG) Patient will be independent with HEP and demonstrate improved right shoulder ROM to WFL and strength to at least 4+/5 all planes LTG Duration 09/09/21 Two Impairment decreased activity tolerance right shoulder Impairment QuickDash disability index score right shoulder 48% Custodial Goal (LTG) Decrease Quickdash score to no greater than 15% as measure of improved activity tolerance and improved functional use of right shoulder LTG Duration 10/09/21 One Impairment pain right shoulder as high as 8/10 Custodial Goal (LTG) Decrease pain to no greater than 2/10 with all usual activities including photography and his other art activities LTG Duration 10/09/21 Assessment Summary Assessment Right shoulder improved, left same, continues to have difficulty inhibiting left UT, much cuing needed with ther ex and with static sitting for postural correction. Trial ultrasound and kineisotape today as above, and treatment of left subscap trigger points with good tolerance. Physical Therapy Plan Frequency and Duration Frequency of Treatment 2x/Week Duration of Treatment 8 weeks Plan of Care Start Date 08/09/21 Plan of Care End Date 10/09/21 Therapeutic Interventions Therapeutic Interventions Aquatic Therapy,Home Exercise Program,Lymphedema Management, Neuromuscular Re-education, Patient/Caregiver Education, Self-Care/Home Management,Soft Tissue Mobilization,Taping, Therapeutic Activities, Therapeutic Exercises Modalities Cold Pack/Ice Massage,Electric Stimulation,Hot Packs, Infrared Therapy,Iontophoresis ,Ultrasound Next Visit Focus/Plan Next Note Type Treatment Note Next Visit Plan Assess response to modification in today's treatment with ultrasound and kinesiotape. Assess for trigger points left subscap and treat as indicated.
--- NOTE | 2021-09-13 16:52 | PT.OTN ---
Current Diagnoses Pain in unspecified shoulder (09/13/21) Pain in right arm (09/13/21) Abnormal posture (09/13/21) Weakness (09/13/21) Physical Therapy Treatment Note PT-OP-A Visit Information Start: 08/08/21 17:25 Freq: Status: Active Protocol: Document 09/13/21 08:16 [facility]AK (Rec: 09/13/21 09:02 [facility] [id number]) Out-Patient Physical Therapy Visit Information Visit Information Visit Type Treatment Note Visit Start Time 08:15 Visit Stop Time 09:10 Total Visit Minutes 60 Visit Number 6 Evaluation Information Evaluation Date 08/09/21 PT-OP-B Current Condition Start: 08/08/21 17:25 Freq: Status: Active Protocol: Document 09/13/21 08:16 [facility]AK (Rec: 09/13/21 09:02 [facility] [id number]) Current Condition History of Current Condition Onset Date 2 months Current Complaints right scapula and shoulder pain History of Current Condition Reports persistent right sided scapula and shoulder pain. No precipitating event unless related to fall in March due to COPD; fractured right foot. Doesn't remember the fall. Taken to hospital, returned due to persistent foot pain and fracture discovered. Surgical repair then rehab for 1 month. Thinks right shoulder pain may have started in rehab. Using arms to compensate for ankle fracture, maybe using arms more than prior to injury. Difficulty reaching overhead or behind his back. Feels like a nerve being pinched. History bilateral TKA Prior Treatments and Tests no imaging takes Tylenol, no use of ice or heat. Future Testing and Treatments Planned returns to doctor after completes PT. PT-OP-C Subjective Start: 08/08/21 17:25 Freq: Status: Active Protocol: Document 09/13/21 08:16 [facility] (Rec: 09/13/21 09:02 [facility] [id number]) OP-PT Subjective Patient Comments Patient Comments Pain not changed in left shoulder, right remains much improved. still difficulty laying on left side, trying to work on relaxing left UT. Didn't feel any difference with kinesiotape. PT-OP-J Posture/Palpation/Skin Start: 08/08/21 17:25 Freq: Status: Active Protocol: Document 08/09/21 08:16 [facility] (Rec: 08/10/21 15:47 [facility] [id number]) Posture Evaluation Position Sitting Head/C-Spine Posture Forward Head T-Spine Posture Increased Kyphosis Shoulder Posture (L) Rounded,(R) Rounded Scapula Posture (L) Protracted,(R) Protracted Arm Posture (L) Internally Rotated,(R) Internally Rotated PT-OP-K Range of Motion Start: 08/08/21 17:25 Freq: Status: Active Protocol: Document 08/09/21 08:16 [facility] (Rec: 08/10/21 15:47 [facility] [id number]) Cervical Spine Range of Motion Cervical Spine Active Testing Position Sitting Flexion 55 Extension 10 Rotation Left 45 Rotation Right 50 Lateral Flexion Left 25 Lateral Flexion Right 30 ROM Limitations Soft Tissue Tightness Shoulder Goniometric Range of Motion Shoulder Right Shoulder ROM WFL No Testing Position Sitting Flexion 130 Extension 15 Abduction 128 External Rotation at 45 degrees 60 Abduction Internal Rotation Behind Back (text) L5 Left Shoulder ROM WFL No Testing Position Sitting Flexion 140 Extension 15 Abduction 145 External Rotation at 45 degrees 50 Abduction Internal Rotation Behind Back (text) L5 PT-OP-L Special Tests Start: 08/08/21 17:25 Freq: Status: Active Protocol: Document 08/09/21 08:16 [facility] (Rec: 08/10/21 15:47 [facility] [id number]) Special Tests Shoulder Special Tests Reese Mario Impingement Test Results positive joellen right greater than left Elevation Impingement Test Results positive joellen right greater than left Drop Arm Rotator Cuff Test Results negative PT-OP-M Strength Start: 08/08/21 17:25 Freq: Status: Active Protocol: Document 08/09/21 08:16 [facility] (Rec: 08/10/21 15:47 [facility] [id number]) Scapula Strength Scapula Manual Muscle Testing Right Elevation (C4) 4- Good- Adduction 4- Good- Abduction 4- Good- Depression 4- Good- Left Elevation (C4) 4 Good Adduction 4 Good Abduction 4 Good Depression 4 Good Shoulder Strength Shoulder Manual Muscle Testing Right Flexion 4- Good- Extension 4- Good- Abduction (C5) 3+ Fair+ External Rotation 4- Good- Internal Rotation 4- Good- Left Flexion 4 Good Extension 4 Good Adduction 4+ Good+ External Rotation 4- Good- Internal Rotation 4 Good Elbow/Forearm Strength Elbow and Forearm Manual Muscle Testing joellen Flexion (C6) 4 Good Extension (C7) 4 Good PT-OP-Q Treatments Start: 08/08/21 17:25 Freq: Status: Active Protocol: Document 09/13/21 08:16 [facility] (Rec: 09/13/21 09:02 [facility] [id number]) Cardio Equipment Recumbent Stepper (Sci-Fit) Duration (Minutes) 6 Resistance 1.0 Seat Position 12 Other cues for relaxed UT with manual cues, UE's entire time Therapeutic Exercises Supine Exercises shoulder PROM Side left Reps/Minutes 10x Comments all planes, pain-free ROM Sidelying Exercises open book Side bilateral Reps/Minutes 5 Comments verbal and manual cues for segmental movement Sitting Exercises posterior capsule stretch Reps/Minutes 2x30 UT stretch Reps/Minutes 3x Comments lateral, post fibers, ant fibers pulleys Sitting Exercise Name flexion and scaption; painfree rom Equipment Used mirror Reps/Minutes 10x Comments cues for slow speed, deep breath at end range Standing Exercises shoulder rolls Standing Exercise Name up, back, down, hold Equipment Used mirror Reps/Minutes 10xx Comments cues for chin tuck with shld roll Manual Therapy Treatment Soft Tissue Mobilization subscap Body Location trigger points Mobilization Type Sustained Pressure,Trigger Point Release Body Position Hooklying Comments pin and stretch Self-Care/Home Management Treatment Education Patient Education Home Exercise Program,Pain Management,Posture PT-OP-R Modalities Start: 08/08/21 17:25 Freq: Status: Active Protocol: Document 09/13/21 08:16 [facility] (Rec: 09/13/21 16:52 [facility] [id number]) Electric Stimulation Electric Stimulation left shoulder Duration (Minutes) 15 Intensity 14 Target/Sweep Sweep Patient Position Hooklying Combined With Heat/Cold Hot Pack PT-OP-T Assessment and Plan Start: 08/08/21 17:25 Freq: Status: Active Protocol: Document 09/13/21 08:16 [facility] (Rec: 09/13/21 09:02 [facility] [id number]) Physical Therapy Assessment Goals Three Impairment weakness right shoulder and postural impairment Short Term Goal (STG) patient will be instructed in HEP consisting of therapeutic exercises for right shoulder strengthening, ROM, and postural correction STG Duration 09/09/21 Restaurant Server Goal (LTG) Patient will be independent with HEP and demonstrate improved right shoulder ROM to WFL and strength to at least 4+/5 all planes LTG Duration 09/09/21 Two Impairment decreased activity tolerance right shoulder Impairment QuickDash disability index score right shoulder 48% Residential Goal (LTG) Decrease Quickdash score to no greater than 15% as measure of improved activity tolerance and improved functional use of right shoulder LTG Duration 10/09/21 One Impairment pain right shoulder as high as 8/10 Residential Goal (LTG) Decrease pain to no greater than 2/10 with all usual activities including photography and his other art activities LTG Duration 10/09/21 Assessment Summary Assessment Ultrasound and kinesiotape not helpful in symptom relief, trial IFES today with good response. Able to keep left arm on Sci-Fit entire time. Poor postural awareness without cues. Physical Therapy Plan Frequency and Duration Frequency of Treatment 2x/Week Duration of Treatment 8 weeks Plan of Care Start Date 08/09/21 Plan of Care End Date 10/09/21 Therapeutic Interventions Therapeutic Interventions Aquatic Therapy,Home Exercise Program,Lymphedema Management, Neuromuscular Re-education, Patient/Caregiver Education, Self-Care/Home Management,Soft Tissue Mobilization,Taping, Therapeutic Activities, Therapeutic Exercises Modalities Cold Pack/Ice Massage,Electric Stimulation,Hot Packs, Infrared Therapy,Iontophoresis ,Ultrasound Next Visit Focus/Plan Next Note Type Treatment Note Next Visit Plan Assess response to IFES trial today; immediately after patient reported decrease in pain. Continue to progress with ROM and strengthening shoulders. Further pin and stretch left shoulder subscap.
--- NOTE | 2021-09-15 16:13 | PT.OTRE ---
Current Diagnoses Pain in left shoulder (09/15/21) Pain in unspecified shoulder (09/15/21) Pain in right arm (09/15/21) Abnormal posture (09/15/21) Weakness (09/15/21) Past Medical History (Last Updated 05/17/21 @ 16:27 by Blas Vargas MD) Acquired insufficiency of aortic valve (10/08/15) Acute hypercapnic respiratory failure Asthma Cellulitis (~02/2020) Chronic obstructive pulmonary disease (01/19/11) Cobalamin deficiency CTS (carpal tunnel syndrome) Duodenal ulcer Eczema Elevated d-dimer (~02/2020) Essential hypertension Former smoker Gastric ulcer History of malignant neoplasm of prostate Hypothyroidism (08/21/14) Idiopathic peripheral neuropathy Leukocytosis (01/19/11) Low back pain of over 3 months duration (11/15/16) Obesity (01/19/11) Olecranon bursitis of left elbow Osteoarthritis Prostate cancer (2010) Thrombocytosis (01/19/11) Unilateral primary osteoarthritis, right knee Weakness of right lower extremity (11/15/16) Surgical History (Last Reviewed 04/04/21 @ 07:59 by Sonia Enriquez PA-C) History of arthroplasty of right knee (05/24/20) History of spinal fusion (2012) History of splenectomy (1975) Status post cataract extraction of both eyes with insertion of intraocular lens Status post wrist surgery (2011) Visit Care Team Role Provider Type Blas Vargas MD Attending Provider Physician Family Provider Primary Care Provider Referring Provider Specialty: Internal Medicine Address: [address] [place] [address], [address], [facility] Email: [email or web address] Physical Therapy Re-Evaluation PT-OP-A Visit Information Start: 08/08/21 17:25 Freq: Status: Active Protocol: Document 09/15/21 12:59 [facility] (Rec: 09/15/21 13:44 [facility] [id number]) Out-Patient Physical Therapy Visit Information Visit Information Visit Type Treatment Note Visit Start Time 13:00 Visit Stop Time 14:00 Total Visit Minutes 60 Visit Number 7 Evaluation Information Evaluation Date 08/09/21 PT-OP-B Current Condition Start: 08/08/21 17:25 Freq: Status: Active Protocol: Document 09/15/21 12:59 [facility] (Rec: 09/15/21 13:44 [facility] [id number]) Current Condition History of Current Condition Onset Date 2 months Current Complaints right scapula and shoulder pain History of Current Condition Reports persistent right sided scapula and shoulder pain. No precipitating event unless related to fall in March due to COPD; fractured right foot. Doesn't remember the fall. Taken to hospital, returned due to persistent foot pain and fracture discovered. Surgical repair then rehab for 1 month. Thinks right shoulder pain may have started in rehab. Using arms to compensate for ankle fracture, maybe using arms more than prior to injury. Difficulty reaching overhead or behind his back. Feels like a nerve being pinched. History bilateral TKA Prior Treatments and Tests no imaging takes Tylenol, no use of ice or heat. Future Testing and Treatments Planned returns to doctor after completes PT. PT-OP-C Subjective Start: 08/08/21 17:25 Freq: Status: Active Protocol: Document 09/15/21 12:59 [facility] (Rec: 09/15/21 13:44 [facility] [id number]) OP-PT Subjective Patient Comments Patient Comments Liked IFES, some decrease in pain with IFES after treatment . has difficulty with decreasing activation of left upper trap muscles. PT-OP-J Posture/Palpation/Skin Start: 08/08/21 17:25 Freq: Status: Active Protocol: Document 08/09/21 08:16 [facility] (Rec: 08/10/21 15:47 [facility] [id number]) Posture Evaluation Position Sitting Head/C-Spine Posture Forward Head T-Spine Posture Increased Kyphosis Shoulder Posture (L) Rounded,(R) Rounded Scapula Posture (L) Protracted,(R) Protracted Arm Posture (L) Internally Rotated,(R) Internally Rotated PT-OP-K Range of Motion Start: 08/08/21 17:25 Freq: Status: Active Protocol: Document 08/09/21 08:16 [facility] (Rec: 08/10/21 15:47 [facility] [id number]) Cervical Spine Range of Motion Cervical Spine Active Testing Position Sitting Flexion 55 Extension 10 Rotation Left 45 Rotation Right 50 Lateral Flexion Left 25 Lateral Flexion Right 30 ROM Limitations Soft Tissue Tightness Shoulder Goniometric Range of Motion Shoulder Measured in Degrees Right Shoulder ROM WFL No Testing Position Sitting Flexion 130 Extension 15 Abduction 128 External Rotation at 45 degrees 60 Abduction Internal Rotation Behind Back (text) L5 Left Shoulder ROM WFL No Testing Position Sitting Flexion 140 Extension 15 Abduction 145 External Rotation at 45 degrees 50 Abduction Internal Rotation Behind Back (text) L5 PT-OP-L Special Tests Start: 08/08/21 17:25 Freq: Status: Active Protocol: Document 08/09/21 08:16 [facility] (Rec: 08/10/21 15:47 [facility] [id number]) Special Tests Shoulder Special Tests Reese Mario Impingement Test Results positive joellen right greater than left Elevation Impingement Test Results positive joellen right greater than left Drop Arm Rotator Cuff Test Results negative PT-OP-M Strength Start: 08/08/21 17:25 Freq: Status: Active Protocol: Document 08/09/21 08:16 [facility] (Rec: 08/10/21 15:47 [facility] [id number]) Scapula Strength Scapula Manual Muscle Testing Right Elevation (C4) 4- Good- Adduction 4- Good- Abduction 4- Good- Depression 4- Good- Left Elevation (C4) 4 Good Adduction 4 Good Abduction 4 Good Depression 4 Good Shoulder Strength Shoulder Manual Muscle Testing Right Flexion 4- Good- Extension 4- Good- Abduction (C5) 3+ Fair+ External Rotation 4- Good- Internal Rotation 4- Good- Left Flexion 4 Good Extension 4 Good Adduction 4+ Good+ External Rotation 4- Good- Internal Rotation 4 Good Elbow/Forearm Strength Elbow and Forearm Manual Muscle Testing joellen Flexion (C6) 4 Good Extension (C7) 4 Good PT-OP-Q Treatments Start: 08/08/21 17:25 Freq: Status: Active Protocol: Document 09/15/21 12:59 [facility] (Rec: 09/15/21 13:44 [facility] [id number]) Cardio Equipment Recumbent Stepper (Sci-Fit) Duration (Minutes) 7 Resistance 2 Seat Position 12 Other verbal and manual cues for relaxed UT with manual cues, UE's entire time Therapeutic Exercises Sitting Exercises shoulder ER Reps/Minutes 5x Comments hand on table, forward lean table slide Equipment Used slider sheet Reps/Minutes 10x posterior capsule stretch Reps/Minutes 2x30 UT stretch Comments lateral, post fibers, ant fibers Standing Exercises shoulder rolls Standing Exercise Name up, back, down, hold Equipment Used mirror Reps/Minutes 10xx Comments cues for chin tuck with shld roll Manual Therapy Treatment Soft Tissue Mobilization UT Mobilization Type Myofascial Release,Sustained Pressure Intensity/Depth Moderate Body Position sitting, left arm slupported on pillows LS, rhomboids Body Location also UT Mobilization Type Myofascial Release,Strumming, Sustained Pressure Intensity/Depth Moderate Body Position Sidelying Self-Care/Home Management Treatment Education Patient Education Home Exercise Program,Pain Management,Posture Other Education alignment, inhibition of UT PT-OP-R Modalities Start: 08/08/21 17:25 Freq: Status: Active Protocol: Document 09/15/21 12:59 [facility] (Rec: 09/15/21 15:58 [facility] [id number]) Electric Stimulation Electric Stimulation left shoulder Duration (Minutes) 15 Intensity 14 Target/Sweep Sweep Patient Position Sitting Combined With Heat/Cold Hot Pack PT-OP-T Assessment and Plan Start: 08/08/21 17:25 Freq: Status: Active Protocol: Document 09/15/21 12:59 [facility] (Rec: 09/15/21 13:44 [facility] [id number]) Physical Therapy Assessment Goals Four Impairment left shoulder pain and dysfunction Impairment inability to lift left shoulder overhead, overactivation of left upper trap with postural asymmetry, unable to reach to side or behind back left UE Regulatory Affairs Consultant Goal (LTG) Decrease pain and muscle guarding, with patient able to demonstrate full functional use of his left UE. Three Impairment weakness right shoulder and postural impairment Short Term Goal (STG) patient will be instructed in HEP consisting of therapeutic exercises for right shoulder strengthening, ROM, and postural correction STG Duration goal met Regulatory Affairs Consultant Goal (LTG) Patient will be independent with HEP and demonstrate improved right shoulder ROM to WFL and strength to at least 4+/5 all planes LTG Duration 10/09/21 Two Impairment decreased activity tolerance right shoulder Impairment QuickDash disability index score right shoulder 48% Regulatory Affairs Consultant Goal (LTG) Decrease Quickdash score to no greater than 15% as measure of improved activity tolerance and improved functional use of right shoulder 09/15/21: good goal progress, mostly achieved LTG Duration 10/09/21 One Impairment pain right shoulder as high as 8/10 Snf Goal (LTG) Decrease pain to no greater than 2/10 with all usual activities including photography and his other art activities 09/15/21: good goal progress, mostly achieved. LTG Duration 10/09/21 Progress Towards Goals Progress Comments Patient has made good goal progress with decreasing his right shoulder pain and dysfunction. His left shoulder is the most bothersome at this time, with inability to reach overhead or behind his back, and excessive guarding and overactivation of his upper trap muscles. Assessment Summary Assessment At this time right shoulder doing well, most limiting is left shoulder pain with inability to reach overhead, behind his back, or out to side without pain. Good response to IFES with heat for short term relief. Patient has difficulty inhibiting UT left, though improved with continued emphasis throughout today's treatment including use of mirror. Tolerated table slide better than pulleys for shoulder flexion. ROM remains moderately limited with decreased functional use of left shoulder. Need to contact Dr. Vargas regarding need to treat left shoulder, and to possibly consider left shoulder imaging due to extent of difficulty with use of left UE. Physical Therapy Plan Frequency and Duration Frequency of Treatment 2x/Week Duration of Treatment 8 weeks Plan of Care Start Date 08/09/21 Plan of Care End Date 10/09/21 Therapeutic Interventions Therapeutic Interventions Aquatic Therapy,Home Exercise Program,Lymphedema Management, Neuromuscular Re-education, Patient/Caregiver Education, Self-Care/Home Management,Soft Tissue Mobilization,Taping, Therapeutic Activities, Therapeutic Exercises Modalities Cold Pack/Ice Massage,Electric Stimulation,Hot Packs, Infrared Therapy,Iontophoresis ,Ultrasound Next Visit Focus/Plan Next Note Type Treatment Note Next Visit Plan Continue to progress with ROM and strengthening shoulders. Further pin and stretch left shoulder subscap. Use of mirror for patient visual feedback, continue work to left UT to inhibit and decrease shoulder compression. Contact Dr. Vargas regarding potential imaging of left shoulder.
--- NOTE | 2021-09-15 16:13 | PT.OPPOC ---
Physical, Occupational & Speech Therapy At [facility] Current Diagnoses Pain in left shoulder (09/15/21) Pain in unspecified shoulder (09/15/21) Pain in right arm (09/15/21) Abnormal posture (09/15/21) Weakness (09/15/21) Visit Care Team Role Provider Type Blas Vargas MD Attending Provider Physician Family Provider Primary Care Provider Referring Provider Specialty: Internal Medicine Address: [address] [place] [address], [address], [facility] Email: [email or web address] Plan Of Care PT-OP-T Assessment and Plan Start: 08/08/21 17:25 Freq: Status: Active Protocol: Document 09/15/21 12:59 [facility] (Rec: 09/15/21 13:44 [facility] [id number]) Physical Therapy Assessment Goals Four Impairment left shoulder pain and dysfunction Impairment inability to lift left shoulder overhead, overactivation of left upper trap with postural asymmetry, unable to reach to side or behind back left UE Residential Program Worker Goal (LTG) Decrease pain and muscle guarding, with patient able to demonstrate full functional use of his left UE. Three Impairment weakness right shoulder and postural impairment Short Term Goal (STG) patient will be instructed in HEP consisting of therapeutic exercises for right shoulder strengthening, ROM, and postural correction STG Duration goal met Residential Program Worker Goal (LTG) Patient will be independent with HEP and demonstrate improved right shoulder ROM to WFL and strength to at least 4+/5 all planes LTG Duration 10/09/21 Two Impairment decreased activity tolerance right shoulder Impairment QuickDash disability index score right shoulder 48% Residential Program Worker Goal (LTG) Decrease Quickdash score to no greater than 15% as measure of improved activity tolerance and improved functional use of right shoulder 09/15/21: good goal progress, mostly achieved LTG Duration 10/09/21 One Impairment pain right shoulder as high as 8/10 Residential Program Worker Goal (LTG) Decrease pain to no greater than 2/10 with all usual activities including photography and his other art activities 09/15/21: good goal progress, mostly achieved. LTG Duration 10/09/21 Progress Towards Goals Progress Comments Patient has made good goal progress with decreasing his right shoulder pain and dysfunction. His left shoulder is the most bothersome at this time, with inability to reach overhead or behind his back, and excessive guarding and overactivation of his upper trap muscles. Assessment Summary Assessment At this time right shoulder doing well, most limiting is left shoulder pain with inability to reach overhead, behind his back, or out to side without pain. Good response to IFES with heat for short term relief. Patient has difficulty inhibiting UT left, though improved with continued emphasis throughout today's treatment including use of mirror. Tolerated table slide better than pulleys for shoulder flexion. ROM remains moderately limited with decreased functional use of left shoulder. Need to contact Dr. Vargas regarding need to treat left shoulder, and to possibly consider left shoulder imaging due to extent of difficulty with use of left UE. Physical Therapy Plan Frequency and Duration Frequency of Treatment 2x/Week Duration of Treatment 8 weeks Plan of Care Start Date 08/09/21 Plan of Care End Date 10/09/21 Therapeutic Interventions Therapeutic Interventions Aquatic Therapy,Home Exercise Program,Lymphedema Management, Neuromuscular Re-education, Patient/Caregiver Education, Self-Care/Home Management,Soft Tissue Mobilization,Taping, Therapeutic Activities, Therapeutic Exercises Modalities Cold Pack/Ice Massage,Electric Stimulation,Hot Packs, Infrared Therapy,Iontophoresis ,Ultrasound Next Visit Focus/Plan Next Note Type Treatment Note Next Visit Plan Continue to progress with ROM and strengthening shoulders. Further pin and stretch left shoulder subscap. Use of mirror for patient visual feedback, continue work to left UT to inhibit and decrease shoulder compression. Contact Dr. Vargas regarding potential imaging of left shoulder. Plan of Care Dates Plan of Care Start Date 08/09/21 Plan of Care End Date 10/09/21 Electronically Signed by: La Palacio, PT 09/15/21 [id number] If you are in agreement with this Plan of Care, please return a signed and dated copy. I have reviewed this Plan of Care and certify that the skilled therapy services above are required to meet the patient?s needs. Physician Signature Date Printed Name and Credentials Clinical Instructor Signature Printed Name and Credentials
--- NOTE | 2021-09-15 16:13 | PT.OPPOC ---
Physical, Occupational & Speech Therapy At [facility] Current Diagnoses Pain in left shoulder (09/15/21) Pain in unspecified shoulder (09/15/21) Pain in right arm (09/15/21) Abnormal posture (09/15/21) Weakness (09/15/21) Visit Care Team Role Provider Type Blas Vargas MD Attending Provider Physician Family Provider Primary Care Provider Referring Provider Specialty: Internal Medicine Address: [address] [place] [address], [address], [facility] Email: [email or web address] Plan Of Care PT-OP-T Assessment and Plan Start: 08/08/21 17:25 Freq: Status: Active Protocol: Document 09/15/21 12:59 [facility] (Rec: 09/15/21 13:44 [facility] [id number]) Physical Therapy Assessment Goals Four Impairment left shoulder pain and dysfunction Impairment inability to lift left shoulder overhead, overactivation of left upper trap with postural asymmetry, unable to reach to side or behind back left UE Business Planning Analyst Goal (LTG) Decrease pain and muscle guarding, with patient able to demonstrate full functional use of his left UE. Three Impairment weakness right shoulder and postural impairment Short Term Goal (STG) patient will be instructed in HEP consisting of therapeutic exercises for right shoulder strengthening, ROM, and postural correction STG Duration goal met Business Planning Analyst Goal (LTG) Patient will be independent with HEP and demonstrate improved right shoulder ROM to WFL and strength to at least 4+/5 all planes LTG Duration 10/09/21 Two Impairment decreased activity tolerance right shoulder Impairment QuickDash disability index score right shoulder 48% Business Planning Analyst Goal (LTG) Decrease Quickdash score to no greater than 15% as measure of improved activity tolerance and improved functional use of right shoulder 09/15/21: good goal progress, mostly achieved LTG Duration 10/09/21 One Impairment pain right shoulder as high as 8/10 Business Planning Analyst Goal (LTG) Decrease pain to no greater than 2/10 with all usual activities including photography and his other art activities 09/15/21: good goal progress, mostly achieved. LTG Duration 10/09/21 Progress Towards Goals Progress Comments Patient has made good goal progress with decreasing his right shoulder pain and dysfunction. His left shoulder is the most bothersome at this time, with inability to reach overhead or behind his back, and excessive guarding and overactivation of his upper trap muscles. Assessment Summary Assessment At this time right shoulder doing well, most limiting is left shoulder pain with inability to reach overhead, behind his back, or out to side without pain. Good response to IFES with heat for short term relief. Patient has difficulty inhibiting UT left, though improved with continued emphasis throughout today's treatment including use of mirror. Tolerated table slide better than pulleys for shoulder flexion. ROM remains moderately limited with decreased functional use of left shoulder. Need to contact Dr. Vargas regarding need to treat left shoulder, and to possibly consider left shoulder imaging due to extent of difficulty with use of left UE. Physical Therapy Plan Frequency and Duration Frequency of Treatment 2x/Week Duration of Treatment 8 weeks Plan of Care Start Date 08/09/21 Plan of Care End Date 10/09/21 Therapeutic Interventions Therapeutic Interventions Aquatic Therapy,Home Exercise Program,Lymphedema Management, Neuromuscular Re-education, Patient/Caregiver Education, Self-Care/Home Management,Soft Tissue Mobilization,Taping, Therapeutic Activities, Therapeutic Exercises Modalities Cold Pack/Ice Massage,Electric Stimulation,Hot Packs, Infrared Therapy,Iontophoresis ,Ultrasound Next Visit Focus/Plan Next Note Type Treatment Note Next Visit Plan Continue to progress with ROM and strengthening shoulders. Further pin and stretch left shoulder subscap. Use of mirror for patient visual feedback, continue work to left UT to inhibit and decrease shoulder compression. Contact Dr. Vargas regarding potential imaging of left shoulder. Plan of Care Dates Plan of Care Start Date 08/09/21 Plan of Care End Date 10/09/21 Electronically Signed by: La Palacio, PT 09/15/21 2829 If you are in agreement with this Plan of Care, please return a signed and dated copy. I have reviewed this Plan of Care and certify that the skilled therapy services above are required to meet the patient?s needs. Physician Signature Date Printed Name and Credentials Clinical Instructor Signature Printed Name and Credentials
--- NOTE | 2021-09-19 10:06 | PT.OTN ---
Current Diagnoses Pain in left shoulder (09/19/21) Pain in unspecified shoulder (09/19/21) Pain in right arm (09/19/21) Abnormal posture (09/19/21) Weakness (09/19/21) Physical Therapy Treatment Note PT-OP-A Visit Information Start: 08/08/21 17:25 Freq: Status: Active Protocol: Document 09/19/21 09:09 SAK (Rec: 09/19/21 10:06 SAK [id number]) Out-Patient Physical Therapy Visit Information Visit Information Visit Type Treatment Note Visit Start Time 09:05 Visit Stop Time 10:03 Total Visit Minutes 58 Visit Number 8 Evaluation Information Evaluation Date 08/09/21 PT-OP-B Current Condition Start: 08/08/21 17:25 Freq: Status: Active Protocol: Document 09/19/21 09:09 SAK (Rec: 09/19/21 10:06 SAK [id number]) Current Condition History of Current Condition Onset Date 2 months Current Complaints right scapula and shoulder pain History of Current Condition Reports persistent right sided scapula and shoulder pain. No precipitating event unless related to fall in March due to COPD; fractured right foot. Doesn't remember the fall. Taken to hospital, returned due to persistent foot pain and fracture discovered. Surgical repair then rehab for 1 month. Thinks right shoulder pain may have started in rehab. Using arms to compensate for ankle fracture, maybe using arms more than prior to injury. Difficulty reaching overhead or behind his back. Feels like a nerve being pinched. History bilateral TKA Prior Treatments and Tests no imaging takes Tylenol, no use of ice or heat. Future Testing and Treatments Planned returns to doctor after completes PT. PT-OP-C Subjective Start: 08/08/21 17:25 Freq: Status: Active Protocol: Document 09/19/21 09:09 SAK (Rec: 09/19/21 10:06 SAK [id number]) OP-PT Subjective Patient Comments Patient Comments Hasn't heard back from Dr. Vargas yet, left shoulder still hurting, right shoulder doing ok. Asked about open book exercise, forgot that one. Doing theraband exercises but needs new L1 TB. PT-OP-J Posture/Palpation/Skin Start: 08/08/21 17:25 Freq: Status: Active Protocol: Document 08/09/21 08:16 SAK (Rec: 08/10/21 15:47 [facility] [id number]) Posture Evaluation Position Sitting Head/C-Spine Posture Forward Head T-Spine Posture Increased Kyphosis Shoulder Posture (L) Rounded,(R) Rounded Scapula Posture (L) Protracted,(R) Protracted Arm Posture (L) Internally Rotated,(R) Internally Rotated PT-OP-K Range of Motion Start: 08/08/21 17:25 Freq: Status: Active Protocol: Document 08/09/21 08:16 [facility] (Rec: 08/10/21 15:47 [facility] [id number]) Cervical Spine Range of Motion Cervical Spine Active Testing Position Sitting Flexion 55 Extension 10 Rotation Left 45 Rotation Right 50 Lateral Flexion Left 25 Lateral Flexion Right 30 ROM Limitations Soft Tissue Tightness Shoulder Goniometric Range of Motion Shoulder Right Shoulder ROM WFL No Testing Position Sitting Flexion 130 Extension 15 Abduction 128 External Rotation at 45 degrees 60 Abduction Internal Rotation Behind Back (text) L5 Left Shoulder ROM WFL No Testing Position Sitting Flexion 140 Extension 15 Abduction 145 External Rotation at 45 degrees 50 Abduction Internal Rotation Behind Back (text) L5 PT-OP-L Special Tests Start: 08/08/21 17:25 Freq: Status: Active Protocol: Document 08/09/21 08:16 [facility] (Rec: 08/10/21 15:47 [facility] [id number]) Special Tests Shoulder Special Tests Reese Mario Impingement Test Results positive joellen right greater than left Elevation Impingement Test Results positive joellen right greater than left Drop Arm Rotator Cuff Test Results negative PT-OP-M Strength Start: 08/08/21 17:25 Freq: Status: Active Protocol: Document 08/09/21 08:16 [facility] (Rec: 08/10/21 15:47 [facility] [id number]) Scapula Strength Scapula Manual Muscle Testing Right Elevation (C4) 4- Good- Adduction 4- Good- Abduction 4- Good- Depression 4- Good- Left Elevation (C4) 4 Good Adduction 4 Good Abduction 4 Good Depression 4 Good Shoulder Strength Shoulder Manual Muscle Testing Right Flexion 4- Good- Extension 4- Good- Abduction (C5) 3+ Fair+ External Rotation 4- Good- Internal Rotation 4- Good- Left Flexion 4 Good Extension 4 Good Adduction 4+ Good+ External Rotation 4- Good- Internal Rotation 4 Good Elbow/Forearm Strength Elbow and Forearm Manual Muscle Testing joellen Flexion (C6) 4 Good Extension (C7) 4 Good PT-OP-Q Treatments Start: 08/08/21 17:25 Freq: Status: Active Protocol: Document 09/19/21 09:09 [facility] (Rec: 09/19/21 10:06 [facility] [id number]) Cardio Equipment Recumbent Stepper (Sci-Fit) Duration (Minutes) 10 Resistance 2 Seat Position 12 Other verbal and manual cues for relaxed UT with manual cues, UE's entire time Gym Equipment Cable Column (Body Solid) lat pull Details verbal and manual cues for scapular movement, lower trap activation Resistance 20 Reps/Time 10x row Details verbal and manual cues for UT inhib and lower trap activation Resistance 20 Reps/Time 10x2 Therapeutic Exercises Sidelying Exercises shoulder scaption Sidelying Exercise Name with inferior glide GH Reps/Minutes 10x2 Comments manual open book Side bilateral Reps/Minutes 5 Comments verbal and manual cues for segmental movement Standing Exercises shoulder rolls Standing Exercise Name up, back, down, hold Equipment Used mirror Reps/Minutes 10xx Comments cues for chin tuck with shld roll Manual Therapy Treatment Soft Tissue Mobilization LS, rhomboids Body Location also UT Mobilization Type Myofascial Release,Strumming, Sustained Pressure Intensity/Depth Moderate Body Position Sidelying Self-Care/Home Management Treatment Education Other Education importance and value of open book exercise. PT-OP-R Modalities Start: 08/08/21 17:25 Freq: Status: Active Protocol: Document 09/19/21 09:09 [facility] (Rec: 09/19/21 10:06 [facility] [id number]) Electric Stimulation Electric Stimulation left shoulder Duration (Minutes) 15 Intensity 13 Target/Sweep Sweep Patient Position Supine Combined With Heat/Cold Hot Pack PT-OP-T Assessment and Plan Start: 08/08/21 17:25 Freq: Status: Active Protocol: Document 09/19/21 09:09 [facility] (Rec: 09/19/21 10:06 [facility] [id number]) Physical Therapy Assessment Goals Four Impairment left shoulder pain and dysfunction Impairment inability to lift left shoulder overhead, overactivation of left upper trap with postural asymmetry, unable to reach to side or behind back left UE Cd Technician Goal (LTG) Decrease pain and muscle guarding, with patient able to demonstrate full functional use of his left UE. Three Impairment weakness right shoulder and postural impairment Short Term Goal (STG) patient will be instructed in HEP consisting of therapeutic exercises for right shoulder strengthening, ROM, and postural correction STG Duration goal met Fdc Goal (LTG) Patient will be independent with HEP and demonstrate improved right shoulder ROM to WFL and strength to at least 4+/5 all planes LTG Duration 10/09/21 Two Impairment decreased activity tolerance right shoulder Impairment QuickDash disability index score right shoulder 48% Fdc Goal (LTG) Decrease Quickdash score to no greater than 15% as measure of improved activity tolerance and improved functional use of right shoulder 09/15/21: good goal progress, mostly achieved LTG Duration 10/09/21 One Impairment pain right shoulder as high as 8/10 Cd Technician Goal (LTG) Decrease pain to no greater than 2/10 with all usual activities including photography and his other art activities 09/15/21: good goal progress, mostly achieved. LTG Duration 10/09/21 Assessment Summary Assessment Left shoulder remains most painful. Improved scaption in sidelying with manual inferior glide. Lat pull tolerated well with manual scapular guidance, patient able to let left shoulder elevate to 120 deg, more than when pulleys last done. Physical Therapy Plan Frequency and Duration Frequency of Treatment 2x/Week Duration of Treatment 8 weeks Plan of Care Start Date 08/09/21 Plan of Care End Date 10/09/21 Therapeutic Interventions Therapeutic Interventions Aquatic Therapy,Home Exercise Program,Lymphedema Management, Neuromuscular Re-education, Patient/Caregiver Education, Self-Care/Home Management,Soft Tissue Mobilization,Taping, Therapeutic Activities, Therapeutic Exercises Modalities Cold Pack/Ice Massage,Electric Stimulation,Hot Packs, Infrared Therapy,Iontophoresis ,Ultrasound Next Visit Focus/Plan Next Note Type Treatment Note Next Visit Plan Continue to progress with ROM and strengthening shoulders. Further pin and stretch left shoulder subscap. Use of mirror for patient visual feedback, continue work to left UT to inhibit and decrease shoulder compression. Contact Dr. Vargas regarding potential imaging of left shoulder.
--- NOTE | 2021-09-21 10:46 | PT-OP ANOTE ---
Pt did not show for today's appt, when called stated thought his appt was tomorrow. ENGINEER AND GEOLOGIST confirmed next appt 10/03/21 but mentioned welcoming to be added to call waiting list for openings until then. Pt stated hasn't heard back from Dr Vargas yet for scheduling further assessment of L shld, suggested calling Dr Vargas' office again to allow support assist. ENGINEER AND GEOLOGIST notified schedulers that pt wanted to be placed on waiting list.
--- NOTE | 2021-09-23 09:47 | PT.OTN ---
Current Diagnoses Pain in left shoulder (09/23/21) Pain in unspecified shoulder (09/23/21) Pain in right arm (09/23/21) Abnormal posture (09/23/21) Weakness (09/23/21) Physical Therapy Treatment Note PT-OP-A Visit Information Start: 08/08/21 17:25 Freq: Status: Active Protocol: Document 09/23/21 09:06 SP (Rec: 09/23/21 09:50 SP [id number]) Out-Patient Physical Therapy Visit Information Visit Information Visit Type Treatment Note Visit Note Pt sees Dr Varags at 1400 and PT appt at 1430 on 10/03, he needs PN next tx 10th visit due to POC expiring 10/09 and will not see PT again until but has 3 MARKETING INTERN appts 10/05, 10/18 & 10/20. Going out of town between 10/05 and 10/18. Visit Start Time 09:05 Visit Stop Time 09:47 Total Visit Minutes 42 Visit Number 9 Number of MARKETING INTERN Visits 1 Evaluation Information Evaluation Date 08/09/21 PT-OP-B Current Condition Start: 08/08/21 17:25 Freq: Status: Active Protocol: Document 09/19/21 09:09 SAK (Rec: 09/19/21 10:06 SAK [id number]) Current Condition History of Current Condition Onset Date 2 months Current Complaints right scapula and shoulder pain History of Current Condition Reports persistent right sided scapula and shoulder pain. No precipitating event unless related to fall in March due to COPD; fractured right foot. Doesn't remember the fall. Taken to hospital, returned due to persistent foot pain and fracture discovered. Surgical repair then rehab for 1 month. Thinks right shoulder pain may have started in rehab. Using arms to compensate for ankle fracture, maybe using arms more than prior to injury. Difficulty reaching overhead or behind his back. Feels like a nerve being pinched. History bilateral TKA Prior Treatments and Tests no imaging takes Tylenol, no use of ice or heat. Future Testing and Treatments Planned returns to doctor after completes PT. PT-OP-C Subjective Start: 08/08/21 17:25 Freq: Status: Active Protocol: Document 09/23/21 09:06 SP (Rec: 09/23/21 09:50 SP [id number]) OP-PT Subjective Patient Comments Patient Comments Pt states have an appt with Dr Vargas October 03 at 1400 for L shld further assessment but may conflict with PT appt 30 min later 1430. Was told might not get full function. States feels soreness over L anterolateral L shld and not able reach like could before. R shld not bad actually, doesn 't hurt much at all now able to reach overhead but not all the way. PT-OP-J Posture/Palpation/Skin Start: 08/08/21 17:25 Freq: Status: Active Protocol: Document 08/09/21 08:16 SAK (Rec: 08/10/21 15:47 [facility] [id number]) Posture Evaluation Position Sitting Head/C-Spine Posture Forward Head T-Spine Posture Increased Kyphosis Shoulder Posture (L) Rounded,(R) Rounded Scapula Posture (L) Protracted,(R) Protracted Arm Posture (L) Internally Rotated,(R) Internally Rotated PT-OP-K Range of Motion Start: 08/08/21 17:25 Freq: Status: Active Protocol: Document 09/23/21 09:06 SP (Rec: 09/23/21 09:50 SP [id number]) Shoulder Goniometric Range of Motion Shoulder Right Shoulder ROM WFL No Testing Position Sitting Flexion 145 Extension 81 Abduction 120 External Rotation at 0 degrees Abduction 90 Internal Rotation Behind Back (text) L5 Comments R UE AROM: gained 15 deg FF gained 66 deg extension lost 8 deg ABD Left Shoulder ROM WFL No Testing Position Sitting Flexion 87 Extension 43 Abduction 74 External Rotation at 0 degrees Abduction 43 Internal Rotation Behind Back (text) lateral L pelvis Comments Decreased in AROM L shld seated: regressed 53 deg FF regressed 66 deg ABD regressed 2 deg ER regressed standing IR L shld PROM supine: FF 138 deg ABD 135 deg PT-OP-L Special Tests Start: 08/08/21 17:25 Freq: Status: Active Protocol: Document 08/09/21 08:16 SAK (Rec: 08/10/21 15:47 [facility] [id number]) Special Tests Shoulder Special Tests Reees Mario Impingement Test Results positive joellen right greater than left Elevation Impingement Test Results positive joellen right greater than left Drop Arm Rotator Cuff Test Results negative PT-OP-M Strength Start: 08/08/21 17:25 Freq: Status: Active Protocol: Document 08/09/21 08:16 SAK (Rec: 08/10/21 15:47 [facility] [id number]) Scapula Strength Scapula Manual Muscle Testing Right Elevation (C4) 4- Good- Adduction 4- Good- Abduction 4- Good- Depression 4- Good- Left Elevation (C4) 4 Good Adduction 4 Good Abduction 4 Good Depression 4 Good Shoulder Strength Shoulder Manual Muscle Testing Right Flexion 4- Good- Extension 4- Good- Abduction (C5) 3+ Fair+ External Rotation 4- Good- Internal Rotation 4- Good- Left Flexion 4 Good Extension 4 Good Adduction 4+ Good+ External Rotation 4- Good- Internal Rotation 4 Good Elbow/Forearm Strength Elbow and Forearm Manual Muscle Testing joellen Flexion (C6) 4 Good Extension (C7) 4 Good PT-OP-Q Treatments Start: 08/08/21 17:25 Freq: Status: Active Protocol: Document 09/23/21 09:06 SP (Rec: 09/23/21 09:50 SP [id number]) Cardio Equipment Recumbent Stepper (Sci-Fit) Duration (Minutes) 10 Resistance 2 Seat Position 12 Other verbal and manual cues for relaxed UT with manual cues, UE's entire time Therapeutic Exercises Sitting Exercises pull downs Sitting Exercise Name rear facing pull downs- added to HEP-assimulate cable lat pulldown for home Side bilateral Resistance TB #2 w/ HO given Equipment Used almost no pain reported Reps/Minutes 2x10 Comments cued scap retraction/upright posture- painfree, little muscle work feel pulleys Sitting Exercise Name flexion and scaption: slow speed, deep breath end ROM Side bilateral Equipment Used mirror Reps/Minutes 10x each direction Comments Cued use mirror and cues for no UT recruitment Manual Therapy Treatment Soft Tissue Mobilization RC Body Location supra, infrasp, Teres, distal detoid Mobilization Type Cross-Friction Intensity/Depth Moderate Body Position Hooklying Comments manual and discussed use of tennis ball onwall for self application if needed. Joint Mobilizations L GH Jt Joint inferior/ posterior glide pre measurements supine Grade II Body Position Hooklying Comments good feedback painfree- PT-OP-R Modalities Start: 08/08/21 17:25 Freq: Status: Active Protocol: Document 09/19/21 09:09 SAK (Rec: 09/19/21 10:06 SAK [id number]) Electric Stimulation Electric Stimulation left shoulder Duration (Minutes) 15 Intensity 13 Target/Sweep Sweep Patient Position Supine Combined With Heat/Cold Hot Pack PT-OP-T Assessment and Plan Start: 08/08/21 17:25 Freq: Status: Active Protocol: Document 09/23/21 09:06 SP (Rec: 09/23/21 09:50 SP [id number]) Physical Therapy Assessment Goals Four Impairment left shoulder pain and dysfunction Impairment inability to lift left shoulder overhead, overactivation of left upper trap with postural asymmetry, unable to reach to side or behind back left UE Pv Installer Tech Goal (LTG) Decrease pain and muscle guarding, with patient able to demonstrate full functional use of his left UE. 09/23/21: Three Impairment weakness right shoulder and postural impairment Short Term Goal (STG) patient will be instructed in HEP consisting of therapeutic exercises for right shoulder strengthening, ROM, and postural correction STG Duration goal met Pv Installer Tech Goal (LTG) Patient will be independent with HEP and demonstrate improved right shoulder ROM to WFL and strength to at least 4+/5 all planes LTG Duration 10/09/21 Two Impairment decreased activity tolerance right shoulder Impairment QuickDash disability index score right shoulder 48% Pv Installer Tech Goal (LTG) Decrease Quickdash score to no greater than 15% as measure of improved activity tolerance and improved functional use of right shoulder 09/15/21: good goal progress, mostly achieved LTG Duration 10/09/21 One Impairment pain right shoulder as high as 8/10 Mcfp Goal (LTG) Decrease pain to no greater than 2/10 with all usual activities including photography and his other art activities 09/15/21: good goal progress, mostly achieved. LTG Duration 10/09/21 Progress Towards Goals Progress Towards Goals Slow Progress due to Activity Tolerance Progress Comments Decreased in AROM L shld seated, limited by pain and weakness: regressed 53 deg FF regressed 66 deg ABD regressed 2 deg ER regressed standing IR L shld PROM supine: FF 138 deg ABD 135 deg Assessment Summary Assessment Pt has regressed in AROM due to weakness and pain of L shld . Has a follow up with Dr Vargas end September with hoping further assessment. Pt has pain at end feel limiting ROM <LRUE. Pt states doing HEP that can, tolerated pull downs and pulleys during tx with ed painfree ROM. Post Manual to L shld able to gain PROM before end feel pain, see measurements. MARKETING INTERN ed on modalities CP but declined application end tx stated can apply at home if needed. Physical Therapy Plan Frequency and Duration Frequency of Treatment 2x/Week Duration of Treatment 8 weeks Plan of Care Start Date 08/09/21 Plan of Care End Date 10/09/21 Therapeutic Interventions Therapeutic Interventions Aquatic Therapy,Home Exercise Program,Lymphedema Management, Neuromuscular Re-education, Patient/Caregiver Education, Self-Care/Home Management,Soft Tissue Mobilization,Taping, Therapeutic Activities, Therapeutic Exercises Modalities Cold Pack/Ice Massage,Electric Stimulation,Hot Packs, Infrared Therapy,Iontophoresis ,Ultrasound Other Referrals/Consults Referrals/Consults Recommended 09/19/21: PT reported in assessment: Pt to contact Dr. Vargas regarding potential imaging of left shoulder. 09/23/21: MARKETING INTERN agrees: recommending L shld further assessment, demonstrated limited/decreased AROM and reports pain all directions arm away from body, see measurements taken this tx seated/supine. Next Visit Focus/Plan Next Note Type Treatment Note Next Visit Plan Continue to progress with ROM and strengthening shoulders. Further pin and stretch left shoulder subscap.
--- NOTE | 2021-10-05 09:00 | PT.OTN ---
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 No precipitating event unless related to fall in March due to COPD; fractured right foot. Doesn't remember the fall. Taken to hospital, returned due to persistent foot pain and fracture discovered. Surgical repair then rehab for 1 month. Thinks right shoulder pain may have started in rehab. Using arms to compensate for ankle fracture, maybe using arms more than prior to injury. Difficulty reaching overhead or behind his back. Feels like a nerve being pinched. History bilateral TKA Prior Treatments and Tests no imaging takes Tylenol, no use of ice or heat. Future Testing and Treatments Planned returns to doctor after completes PT. PT-OP-C Subjective Start: 08/08/21 17:25 Freq: Status: Active Protocol: Document 10/05/21 08:20 SP (Rec: 10/05/21 09:04 SP [id number]) OP-PT Subjective Patient Comments Patient Comments Pt reports saw Dr Vargas, ordered xray of L shld 10/03, waiting on results. He states 3-07/17 with L shld. Pain when rolls over on L shld sleeping at times gets tingling in hand and limits him in ADLs. Patient Questionnaires ABC- Activity Specific Balance Confidence Scale ABC Score 47.7 ABC Functional Impairment 40 to <60% Impaired (Score 41- 60) PT-OP-J Posture/Palpation/Skin Start: 08/08/21 17:25 Freq: Status: Active Protocol: Document 08/09/21 08:16 SAK (Rec: 08/10/21 15:47 [facility] [id number]) Posture Evaluation Position Sitting Head/C-Spine Posture Forward Head T-Spine Posture Increased Kyphosis Shoulder Posture (L) Rounded,(R) Rounded Scapula Posture (L) Protracted,(R) Protracted Arm Posture (L) Internally Rotated,(R) Internally Rotated PT-OP-K Range of Motion Start: 08/08/21 17:25 Freq: Status: Active Protocol: Document 09/23/21 09:06 SP (Rec: 09/23/21 09:50 SP [id number]) Shoulder Goniometric Range of Motion Shoulder Right Shoulder ROM WFL No Testing Position Sitting Flexion 145 Extension 81 Abduction 120 External Rotation at 0 degrees Abduction 90 Internal Rotation Behind Back (text) L5 Comments R UE AROM: gained 15 deg FF gained 66 deg extension lost 8 deg ABD Left Shoulder ROM WFL No Testing Position Sitting Flexion 87 Extension 43 Abduction 74 External Rotation at 0 degrees Abduction 43 Internal Rotation Behind Back (text) lateral L pelvis Comments Decreased in AROM L shld seated: regressed 53 deg FF regressed 66 deg ABD regressed 2 deg ER regressed standing IR L shld PROM supine: FF 138 deg ABD 135 deg PT-OP-L Special Tests Start: 08/08/21 17:25 Freq: Status: Active Protocol: Document 08/09/21 08:16 [facility] (Rec: 08/10/21 15:47 [facility] [id number]) Special Tests Shoulder Special Tests Reese Mario Impingement Test Results positive joellen right greater than left Elevation Impingement Test Results positive joellen right greater than left Drop Arm Rotator Cuff Test Results negative PT-OP-M Strength Start: 08/08/21 17:25 Freq: Status: Active Protocol: Document 08/09/21 08:16 SAK (Rec: 08/10/21 15:47 [facility] [id number]) Scapula Strength Scapula Manual Muscle Testing Right Elevation (C4) 4- Good- Adduction 4- Good- Abduction 4- Good- Depression 4- Good- Left Elevation (C4) 4 Good Adduction 4 Good Abduction 4 Good Depression 4 Good Shoulder Strength Shoulder Manual Muscle Testing Right Flexion 4- Good- Extension 4- Good- Abduction (C5) 3+ Fair+ External Rotation 4- Good- Internal Rotation 4- Good- Left Flexion 4 Good Extension 4 Good Adduction 4+ Good+ External Rotation 4- Good- Internal Rotation 4 Good Elbow/Forearm Strength Elbow and Forearm Manual Muscle Testing joellen Flexion (C6) 4 Good Extension (C7) 4 Good PT-OP-Q Treatments Start: 08/08/21 17:25 Freq: Status: Active Protocol: Document 10/05/21 08:20 SP (Rec: 10/05/21 09:04 SP [id number]) Therapeutic Exercises Sidelying Exercises shoulder scaption Sidelying Exercise Name ABD inferior glide GH Side left Resistance AROM approx 80 deg Reps/Minutes x8 Comments cued slow painfree range 5/10 shoulder ER Side left Equipment Used towel roll under arm Reps/Minutes x8 reps Comments 3/10 pain Sitting Exercises shoulder ER Sitting Exercise Name HEP reviewed Side left Resistance AROM Equipment Used arm rested on arm rest Reps/Minutes 5x Comments hand on table, forward lean table slide Side left Equipment Used slider sheet Reps/Minutes 10x Manual Therapy Treatment Soft Tissue Mobilization UT Body Location L Mobilization Type Myofascial Release,Sustained Pressure Intensity/Depth Moderate Body Position sitting, left arm slupported on pillows RC Body Location Lsupra, infrasp, Teres, distal detoid Mobilization Type Cross-Friction Intensity/Depth Moderate Body Position Hooklying Comments manual and discussed use of tennis ball onwall for self application if needed. LS, rhomboids Body Location L Mobilization Type Myofascial Release,Strumming, Sustained Pressure Intensity/Depth Moderate Body Position Sidelying Joint Mobilizations scapulothoracic Joint L Direction retraction, depression Grade II Body Position Sidelying Comments gentle PROM L GH Jt Joint inferior/ posterior glide pre measurements supine Grade I Body Position Hooklying Comments good feedback painfree- PT-OP-R Modalities Start: 08/08/21 17:25 Freq: Status: Active Protocol: Document 09/19/21 09:09 SAK (Rec: 09/19/21 10:06 SAK [id number]) Electric Stimulation Electric Stimulation left shoulder Duration (Minutes) 15 Intensity 13 Target/Sweep Sweep Patient Position Supine Combined With Heat/Cold Hot Pack PT-OP-T Assessment and Plan Start: 08/08/21 17:25 Freq: Status: Active Protocol: Document 10/05/21 08:20 SP (Rec: 06/29/22 09:04 SP [id number]) Physical Therapy Assessment Goals Four Impairment left shoulder pain and dysfunction Impairment inability to lift left shoulder overhead, overactivation of left upper trap with postural asymmetry, unable to reach to side or behind back left UE Half-Way Goal (LTG) Decrease pain and muscle guarding, with patient able to demonstrate full functional use of his left UE. 09/23/21: See measurements taken:Decreased in AROM L shld seated, limited by pain and weakness: regressed 53 deg FF regressed 66 deg ABD regressed 2 deg ER regressed standing IR L shld PROM supine: FF 138 deg ABD 135 deg Three Impairment weakness right shoulder and postural impairment Short Term Goal (STG) patient will be instructed in HEP consisting of therapeutic exercises for right shoulder strengthening, ROM, and postural correction STG Duration goal met Market Superintendent Goal (LTG) Patient will be independent with HEP and demonstrate improved right shoulder ROM to WFL and strength to at least 4+/5 all planes LTG Duration 10/09/21 Two Impairment decreased activity tolerance right shoulder Impairment QuickDash disability index score right shoulder 48% Half-Way Goal (LTG) Decrease Quickdash score to no greater than 15% as measure of improved activity tolerance and improved functional use of right shoulder 09/15/21: good goal progress, mostly achieved 10/05/21: 47.7% LTG Duration 10/09/21 One Impairment pain right shoulder as high as 8/10 Market Superintendent Goal (LTG) Decrease pain to no greater than 2/10 with all usual activities including photography and his other art activities 09/15/21: good goal progress, mostly achieved. 10/05/21: pt report L 3-4/10 when tires gets cramps in hands, R shld no pain. LTG Duration 10/09/21 prgressing with pain amrit. Assessment Summary Assessment Pt continues to be limited in ROM L shld due to pain and weakness. See measurements taken last tx. ABC questionaire 40-60% impaired. Reviewed and instructed gentle AROM can continue at home until hears back from Dr Vargas on xray results for safety progression in PT. WAREHOUSE PRODUCTION WORKER instructed to call Dr Vargas for feedback and let us know next tx findings and physican suggestions ok to progress or futher ortho assessment recommended. PT to complete updated POC prior to next tx to allow continued scheduled WAREHOUSE PRODUCTION WORKER appts. Physical Therapy Plan Frequency and Duration Frequency of Treatment 2x/Week Duration of Treatment 8 weeks Plan of Care Start Date 08/09/21 Plan of Care End Date 10/09/21 Therapeutic Interventions Therapeutic Interventions Aquatic Therapy,Home Exercise Program,Lymphedema Management, Neuromuscular Re-education, Patient/Caregiver Education, Self-Care/Home Management,Soft Tissue Mobilization,Taping, Therapeutic Activities, Therapeutic Exercises Modalities Cold Pack/Ice Massage,Electric Stimulation,Hot Packs, Infrared Therapy,Iontophoresis ,Ultrasound Next Visit Focus/Plan Next Note Type Treatment Note Next Visit Plan Recheck Lshld xray and follow up from Dr Vargas regarding. POC: Continue to progress with ROM and strengthening shoulders. Further pin and stretch left shoulder subscap.
--- NOTE | 2021-10-05 13:38 | PT.OTRE ---
Current Diagnoses Pain in left shoulder (10/05/21) Pain in unspecified shoulder (10/05/21) Pain in right arm (10/05/21) Abnormal posture (10/05/21) Weakness (10/05/21) Past Medical History (Last Updated 05/17/21 @ 16:27 by Blas Vargas MD) Acquired insufficiency of aortic valve (10/08/15) Acute hypercapnic respiratory failure Asthma Cellulitis (~02/2020) Chronic obstructive pulmonary disease (01/19/11) Cobalamin deficiency CTS (carpal tunnel syndrome) Duodenal ulcer Eczema Elevated d-dimer (~02/2020) Essential hypertension Former smoker Gastric ulcer History of malignant neoplasm of prostate Hypothyroidism (08/21/14) Idiopathic peripheral neuropathy Leukocytosis (01/19/11) Low back pain of over 3 months duration (11/15/16) Obesity (01/19/11) Olecranon bursitis of left elbow Osteoarthritis Prostate cancer (2010) Thrombocytosis (01/19/11) Unilateral primary osteoarthritis, right knee Weakness of right lower extremity (11/15/16) Surgical History (Last Reviewed 04/04/21 @ 07:59 by Sonia Enriquez PA-C) History of arthroplasty of right knee (05/24/20) History of spinal fusion (2012) History of splenectomy (1975) Status post cataract extraction of both eyes with insertion of intraocular lens Status post wrist surgery (2011) Visit Care Team Role Provider Type Blas Vargas MD Attending Provider Physician Family Provider Primary Care Provider Referring Provider Specialty: Internal Medicine Address: [address] [place] [address], [address], [facility] Email: [email or web address] Physical Therapy Re-Evaluation PT-OP-A Visit Information Start: 08/08/21 17:25 Freq: Status: Active Protocol: Document 10/05/21 13:33 SAK (Rec: 10/06/21 13:37 SAK [id number]) Out-Patient Physical Therapy Visit Information Visit Information Visit Type Re-Evaluation PT-OP-B Current Condition Start: 08/08/21 17:25 Freq: Status: Active Protocol: Document 09/19/21 09:09 SAK (Rec: 09/19/21 10:06 SAK [id number]) Current Condition History of Current Condition Onset Date 2 months Current Complaints right scapula and shoulder pain History of Current Condition Reports persistent right sided scapula and shoulder pain. No precipitating event unless related to fall in March due to COPD; fractured right foot. Doesn't remember the fall. Taken to hospital, returned due to persistent foot pain and fracture discovered. Surgical repair then rehab for 1 month. Thinks right shoulder pain may have started in rehab. Using arms to compensate for ankle fracture, maybe using arms more than prior to injury. Difficulty reaching overhead or behind his back. Feels like a nerve being pinched. History bilateral TKA Prior Treatments and Tests no imaging takes Tylenol, no use of ice or heat. Future Testing and Treatments Planned returns to doctor after completes PT. PT-OP-C Subjective Start: 08/08/21 17:25 Freq: Status: Active Protocol: Document 10/05/21 08:20 SP (Rec: 10/05/21 09:04 SP [id number]) OP-PT Subjective Patient Comments Patient Comments Pt reports saw Dr Vargas, ordered xray of L shld 10/03, waiting on results. He states 3-07/17 with L shld. Pain when rolls over on L shld sleeping at times gets tingling in hand and limits him in ADLs. Patient Questionnaires ABC- Activity Specific Balance Confidence Scale ABC Score 47.7 ABC Functional Impairment 40 to <60% Impaired (Score 41- 60) PT-OP-J Posture/Palpation/Skin Start: 08/08/21 17:25 Freq: Status: Active Protocol: Document 08/09/21 08:16 SAK (Rec: 08/10/21 15:47 SAK [id number]) Posture Evaluation Position Sitting Head/C-Spine Posture Forward Head T-Spine Posture Increased Kyphosis Shoulder Posture (L) Rounded,(R) Rounded Scapula Posture (L) Protracted,(R) Protracted Arm Posture (L) Internally Rotated,(R) Internally Rotated PT-OP-K Range of Motion Start: 08/08/21 17:25 Freq: Status: Active Protocol: Document 09/23/21 09:06 SP (Rec: 09/23/21 09:50 SP [id number]) Shoulder Goniometric Range of Motion Shoulder Measured in Degrees Right Shoulder ROM WFL No Testing Position Sitting Flexion 145 Extension 81 Abduction 120 External Rotation at 0 degrees Abduction 90 Internal Rotation Behind Back (text) L5 Comments R UE AROM: gained 15 deg FF gained 66 deg extension lost 8 deg ABD Left Shoulder ROM WFL No Testing Position Sitting Flexion 87 Extension 43 Abduction 74 External Rotation at 0 degrees Abduction 43 Internal Rotation Behind Back (text) lateral L pelvis Comments Decreased in AROM L shld seated: regressed 53 deg FF regressed 66 deg ABD regressed 2 deg ER regressed standing IR L shld PROM supine: FF 138 deg ABD 135 deg PT-OP-L Special Tests Start: 08/08/21 17:25 Freq: Status: Active Protocol: Document 08/09/21 08:16 SAK (Rec: 08/10/21 15:47 SAK [id number]) Special Tests Shoulder Special Tests Reese Mario Impingement Test Results positive joellen right greater than left Elevation Impingement Test Results positive joellen right greater than left Drop Arm Rotator Cuff Test Results negative PT-OP-M Strength Start: 08/08/21 17:25 Freq: Status: Active Protocol: Document 08/09/21 08:16 SAK (Rec: 08/10/21 15:47 [facility] [id number]) Scapula Strength Scapula Manual Muscle Testing Right Elevation (C4) 4- Good- Adduction 4- Good- Abduction 4- Good- Depression 4- Good- Left Elevation (C4) 4 Good Adduction 4 Good Abduction 4 Good Depression 4 Good Shoulder Strength Shoulder Manual Muscle Testing Right Flexion 4- Good- Extension 4- Good- Abduction (C5) 3+ Fair+ External Rotation 4- Good- Internal Rotation 4- Good- Left Flexion 4 Good Extension 4 Good Adduction 4+ Good+ External Rotation 4- Good- Internal Rotation 4 Good Elbow/Forearm Strength Elbow and Forearm Manual Muscle Testing joellen Flexion (C6) 4 Good Extension (C7) 4 Good PT-OP-Q Treatments Start: 08/08/21 17:25 Freq: Status: Active Protocol: Document 10/05/21 08:20 SP (Rec: 10/05/21 09:04 SP [id number]) Therapeutic Exercises Sidelying Exercises shoulder scaption Sidelying Exercise Name ABD inferior glide GH Side left Resistance AROM approx 80 deg Reps/Minutes x8 Comments cued slow painfree range 5/10 shoulder ER Side left Equipment Used towel roll under arm Reps/Minutes x8 reps Comments 3/10 pain Sitting Exercises shoulder ER Sitting Exercise Name HEP reviewed Side left Resistance AROM Equipment Used arm rested on arm rest Reps/Minutes 5x Comments hand on table, forward lean table slide Side left Equipment Used slider sheet Reps/Minutes 10x Manual Therapy Treatment Soft Tissue Mobilization UT Body Location L Mobilization Type Myofascial Release,Sustained Pressure Intensity/Depth Moderate Body Position sitting, left arm slupported on pillows RC Body Location Lsupra, infrasp, Teres, distal detoid Mobilization Type Cross-Friction Intensity/Depth Moderate Body Position Hooklying Comments manual and discussed use of tennis ball onwall for self application if needed. LS, rhomboids Body Location L Mobilization Type Myofascial Release,Strumming, Sustained Pressure Intensity/Depth Moderate Body Position Sidelying Joint Mobilizations scapulothoracic Joint L Direction retraction, depression Grade II Body Position Sidelying Comments gentle PROM L GH Jt Joint inferior/ posterior glide pre measurements supine Grade I Body Position Hooklying Comments good feedback painfree- PT-OP-R Modalities Start: 08/08/21 17:25 Freq: Status: Active Protocol: Document 09/19/21 09:09 [facility] (Rec: 09/19/21 10:06 [facility] [id number]) Electric Stimulation Electric Stimulation left shoulder Duration (Minutes) 15 Intensity 13 Target/Sweep Sweep Patient Position Supine Combined With Heat/Cold Hot Pack PT-OP-T Assessment and Plan Start: 08/08/21 17:25 Freq: Status: Active Protocol: Document 10/05/21 13:33 [facility] (Rec: 10/06/21 13:37 [facility] [id number]) Physical Therapy Assessment Goals Four Impairment left shoulder pain and dysfunction Impairment inability to lift left shoulder overhead, overactivation of left upper trap with postural asymmetry, unable to reach to side or behind back left UE Mcfp Goal (LTG) Decrease pain and muscle guarding, with patient able to demonstrate full functional use of his left UE. 09/23/21: See measurements taken:Decreased in AROM L shld seated, limited by pain and weakness: regressed 53 deg FF regressed 66 deg ABD regressed 2 deg ER regressed standing IR L shld PROM supine: FF 138 deg ABD 135 deg LTG Duration 01/05/22 Three Impairment weakness right shoulder and postural impairment Short Term Goal (STG) patient will be instructed in HEP consisting of therapeutic exercises for right shoulder strengthening, ROM, and postural correction STG Duration goal met Acute Care Physician Goal (LTG) Patient will be independent with HEP and demonstrate improved right shoulder ROM to WFL and strength to at least 4+/5 all planes 10/05/21: good goal progress right shoulder, reporting feels at least 60% better LTG Duration 01/05/22 Two Impairment decreased activity tolerance right shoulder Impairment QuickDash disability index score right shoulder 48% Acute Care Physician Goal (LTG) Decrease Quickdash score to no greater than 15% as measure of improved activity tolerance and improved functional use of right shoulder 09/15/21: good goal progress, mostly achieved 10/05/21: 47.7% left shoulder. Achieved for right shoulder LTG Duration 01/05/22 One Impairment pain right shoulder as high as 8/10 Acute Care Physician Goal (LTG) Decrease pain to no greater than 2/10 with all usual activities including photography and his other art activities 09/15/21: good goal progress, mostly achieved. 10/05/21: pt report L 3-4/10 when tires gets cramps in hands, R shld no pain. LTG Duration 01/05/22 Assessment Summary Assessment Goals mostly achieved for right shoulder, but has developed left shoulder pain, decreased ROM, strength, and functional ability similar to what he was having on right. Recommend continued PT with emphasis on treatment of left shoulder dysfunction. Physical Therapy Plan Frequency and Duration Frequency of Treatment 2x/Week Duration of Treatment 8 weeks Plan of Care Start Date 10/05/21 Plan of Care End Date 01/05/22 Therapeutic Interventions Therapeutic Interventions Aquatic Therapy,Home Exercise Program,Lymphedema Management, Neuromuscular Re-education, Patient/Caregiver Education, Self-Care/Home Management,Soft Tissue Mobilization,Taping, Therapeutic Activities, Therapeutic Exercises Modalities Cold Pack/Ice Massage,Electric Stimulation,Hot Packs, Infrared Therapy,Iontophoresis ,Ultrasound Next Visit Focus/Plan Next Note Type Treatment Note Next Visit Plan Continue PT treatment with emphas on left shoulder pain reduction, ROM, strengthening to improve functional use and ability to do all usual activities with minimal to no pain.
--- NOTE | 2021-10-05 13:38 | PT.OPPOC ---
Physical, Occupational & Speech Therapy At [facility] Current Diagnoses Pain in left shoulder (10/05/21) Pain in unspecified shoulder (10/05/21) Pain in right arm (10/05/21) Abnormal posture (10/05/21) Weakness (10/05/21) Visit Care Team Role Provider Type Blas Vargas MD Attending Provider Physician Family Provider Primary Care Provider Referring Provider Specialty: Internal Medicine Address: [address] [place] [address], [address], [facility] Email: [email or web address] Plan Of Care PT-OP-T Assessment and Plan Start: 08/08/21 17:25 Freq: Status: Active Protocol: Document 10/05/21 13:33 SAK (Rec: 10/06/21 13:37 SAK [id number]) Physical Therapy Assessment Goals Four Impairment left shoulder pain and dysfunction Impairment inability to lift left shoulder overhead, overactivation of left upper trap with postural asymmetry, unable to reach to side or behind back left UE Air Turning Machine Feeder Goal (LTG) Decrease pain and muscle guarding, with patient able to demonstrate full functional use of his left UE. 09/23/21: See measurements taken:Decreased in AROM L shld seated, limited by pain and weakness: regressed 53 deg FF regressed 66 deg ABD regressed 2 deg ER regressed standing IR L shld PROM supine: FF 138 deg ABD 135 deg LTG Duration 01/05/22 Three Impairment weakness right shoulder and postural impairment Short Term Goal (STG) patient will be instructed in HEP consisting of therapeutic exercises for right shoulder strengthening, ROM, and postural correction STG Duration goal met Air Turning Machine Feeder Goal (LTG) Patient will be independent with HEP and demonstrate improved right shoulder ROM to WFL and strength to at least 4+/5 all planes 10/05/21: good goal progress right shoulder, reporting feels at least 60% better LTG Duration 01/05/22 Two Impairment decreased activity tolerance right shoulder Impairment QuickDash disability index score right shoulder 48% Senior Living Goal (LTG) Decrease Quickdash score to no greater than 15% as measure of improved activity tolerance and improved functional use of right shoulder 09/15/21: good goal progress, mostly achieved 10/05/21: 47.7% left shoulder. Achieved for right shoulder LTG Duration 01/05/22 One Impairment pain right shoulder as high as 8/10 Air Turning Machine Feeder Goal (LTG) Decrease pain to no greater than 2/10 with all usual activities including photography and his other art activities 09/15/21: good goal progress, mostly achieved. 10/05/21: pt report L 3-4/10 when tires gets cramps in hands, R shld no pain. LTG Duration 01/05/22 Assessment Summary Assessment Goals mostly achieved for right shoulder, but has developed left shoulder pain, decreased ROM, strength, and functional ability similar to what he was having on right. Recommend continued PT with emphasis on treatment of left shoulder dysfunction. Physical Therapy Plan Frequency and Duration Frequency of Treatment 2x/Week Duration of Treatment 8 weeks Plan of Care Start Date 10/05/21 Plan of Care End Date 01/05/22 Therapeutic Interventions Therapeutic Interventions Aquatic Therapy,Home Exercise Program,Lymphedema Management, Neuromuscular Re-education, Patient/Caregiver Education, Self-Care/Home Management,Soft Tissue Mobilization,Taping, Therapeutic Activities, Therapeutic Exercises Modalities Cold Pack/Ice Massage,Electric Stimulation,Hot Packs, Infrared Therapy,Iontophoresis ,Ultrasound Next Visit Focus/Plan Next Note Type Treatment Note Next Visit Plan Continue PT treatment with emphas on left shoulder pain reduction, ROM, strengthening to improve functional use and ability to do all usual activities with minimal to no pain. Plan of Care Dates Plan of Care Start Date 10/05/21 Plan of Care End Date 01/05/22 Electronically Signed by: La Palacio, PT 10/06/21 [id number] If you are in agreement with this Plan of Care, please return a signed and dated copy. I have reviewed this Plan of Care and certify that the skilled therapy services above are required to meet the patient?s needs. Physician Signature Date Printed Name and Credentials Clinical Instructor Signature Printed Name and Credentials
--- NOTE | 2021-10-18 09:00 | PT.OTN ---
Current Diagnoses Pain in left shoulder (10/18/21) Pain in unspecified shoulder (10/18/21) Pain in right arm (10/18/21) Abnormal posture (10/18/21) Weakness (10/18/21) Physical Therapy Treatment Note PT-OP-A Visit Information Start: 08/08/21 17:25 Freq: Status: Active Protocol: Document 10/18/21 08:17 SP (Rec: 10/18/21 09:06 SP [id number]) Out-Patient Physical Therapy Visit Information Visit Information Visit Type Treatment Note Visit Start Time 08:17 Visit Stop Time 09:00 Total Visit Minutes 43 Visit Number 11 Number of CUSTOMER PROFESSIONAL Visits 3 Evaluation Information Evaluation Date 08/09/21 PT-OP-B Current Condition Start: 08/08/21 17:25 Freq: Status: Active Protocol: Document 09/19/21 09:09 SAK (Rec: 09/19/21 10:06 SAK [id number]) Current Condition History of Current Condition Onset Date 2 months Current Complaints right scapula and shoulder pain History of Current Condition Reports persistent right sided scapula and shoulder pain. No precipitating event unless related to fall in March due to COPD; fractured right foot. Doesn't remember the fall. Taken to hospital, returned due to persistent foot pain and fracture discovered. Surgical repair then rehab for 1 month. Thinks right shoulder pain may have started in rehab. Using arms to compensate for ankle fracture, maybe using arms more than prior to injury. Difficulty reaching overhead or behind his back. Feels like a nerve being pinched. History bilateral TKA Prior Treatments and Tests no imaging takes Tylenol, no use of ice or heat. Future Testing and Treatments Planned returns to doctor after completes PT. PT-OP-C Subjective Start: 08/08/21 17:25 Freq: Status: Active Protocol: Document 10/18/21 08:17 SP (Rec: 10/18/21 09:06 SP [id number]) OP-PT Subjective Patient Comments Patient Comments Pt stated still hasn't heard back from Dr Vargas on results from xray of L shld taken end September. He reports R shld is fine now able to lift R arm overhead and do what needs to, L shld always hurts 24/7 all the time. He states compliant with exercises at home with what can tolerate but wants to know why hurting, wondering if need to live with it. PT-OP-J Posture/Palpation/Skin Start: 08/08/21 17:25 Freq: Status: Active Protocol: Document 08/09/21 08:16 SAK (Rec: 08/10/21 15:47 [facility] [id number]) Posture Evaluation Position Sitting Head/C-Spine Posture Forward Head T-Spine Posture Increased Kyphosis Shoulder Posture (L) Rounded,(R) Rounded Scapula Posture (L) Protracted,(R) Protracted Arm Posture (L) Internally Rotated,(R) Internally Rotated PT-OP-K Range of Motion Start: 08/08/21 17:25 Freq: Status: Active Protocol: Document 10/18/21 08:17 SP (Rec: 10/18/21 09:06 SP [id number]) Shoulder Goniometric Range of Motion Shoulder Left Shoulder ROM WFL No Testing Position Sitting Flexion 90 Abduction 74 External Rotation at 0 degrees Abduction 50 Comments Supine PROM: FF- PROM 128*, AROM 124* ABD-PROM 107*, AROM 101* ER (45* ABD)- AROM 62* Seated AROM: FF- Improved 3deg ABD- 74* no change ROM ER- improved by 7 deg PT-OP-L Special Tests Start: 08/08/21 17:25 Freq: Status: Active Protocol: Document 08/09/21 08:16 [facility] (Rec: 08/10/21 15:47 [facility] [id number]) Special Tests Shoulder Special Tests Reese Mario Impingement Test Results positive joellen right greater than left Elevation Impingement Test Results positive joellen right greater than left Drop Arm Rotator Cuff Test Results negative PT-OP-M Strength Start: 08/08/21 17:25 Freq: Status: Active Protocol: Document 08/09/21 08:16 [facility] (Rec: 08/10/21 15:47 [facility] [id number]) Scapula Strength Scapula Manual Muscle Testing Right Elevation (C4) 4- Good- Adduction 4- Good- Abduction 4- Good- Depression 4- Good- Left Elevation (C4) 4 Good Adduction 4 Good Abduction 4 Good Depression 4 Good Shoulder Strength Shoulder Manual Muscle Testing Right Flexion 4- Good- Extension 4- Good- Abduction (C5) 3+ Fair+ External Rotation 4- Good- Internal Rotation 4- Good- Left Flexion 4 Good Extension 4 Good Adduction 4+ Good+ External Rotation 4- Good- Internal Rotation 4 Good Elbow/Forearm Strength Elbow and Forearm Manual Muscle Testing joellen Flexion (C6) 4 Good Extension (C7) 4 Good PT-OP-Q Treatments Start: 08/08/21 17:25 Freq: Status: Active Protocol: Document 10/18/21 08:17 SP (Rec: 10/18/21 09:06 SP [id number]) Cardio Equipment Recumbent Stepper (Sci-Fit) Duration (Minutes) 10 Resistance 2.5 Seat Position 11 Other UE/ LEs 59-62 RPM, 1.45 miles Therapeutic Exercises Supine Exercises shoulder PROM Supine Exercise Name see measurements taken post. Side left Reps/Minutes 10x Comments all planes, limited painfree range Sitting Exercises pulleys Sitting Exercise Name flexion and scaption Side bilateral Equipment Used mirror Reps/Minutes 10x each direction Comments Cued use mirror and cues for no UT recruitment Standing Exercises shoulder IR. Standing Exercise Name HEP review Side left Resistance L1> L2 TB Equipment Used towel under arm Reps/Minutes 10x2 Comments cued 90deg elbow throughout range- 2/10 pain but doable row, shoulder ext Equipment Used TB L1> L2 Reps/Minutes 10x Comments verbal and tactile cues, level shld shoulder ER Standing Exercise Name ER HEP review Side left Resistance L1> L2 TB Equipment Used towel under arm Reps/Minutes 10x2 Comments cued 90deg elbow throughout range- 2/10 pain but doable Manual Therapy Treatment Soft Tissue Mobilization UT Body Location L Mobilization Type Myofascial Release,Strumming Intensity/Depth Moderate Body Position Hooklying RC Body Location L supra, infrasp, Teres, distal detoid Mobilization Type Myofascial Release,Strumming, Sustained Pressure Intensity/Depth Moderate Body Position Sidelying Comments gentle manual, sensitive to pressure over posterolateral L shld and inferior posterior AC and GH jts. LS, rhomboids Body Location L Mobilization Type Myofascial Release,Strumming, Sustained Pressure Intensity/Depth Moderate Body Position Sidelying Joint Mobilizations scapulothoracic Joint L Direction retraction, depression Grade II Body Position Sidelying Comments gentle PROM, painfree L GH Jt Joint inferior/ posterior glide pre measurements supine Grade II Body Position Hooklying Comments good feedback painfree- PT-OP-R Modalities Start: 08/08/21 17:25 Freq: Status: Active Protocol: Document 09/19/21 09:09 SAK (Rec: 09/19/21 10:06 SAK [id number]) Electric Stimulation Electric Stimulation left shoulder Duration (Minutes) 15 Intensity 13 Target/Sweep Sweep Patient Position Supine Combined With Heat/Cold Hot Pack PT-OP-T Assessment and Plan Start: 08/08/21 17:25 Freq: Status: Active Protocol: Document 10/18/21 08:17 SP (Rec: 10/18/21 09:06 SP [id number]) Physical Therapy Assessment Goals Four Impairment left shoulder pain and dysfunction Impairment inability to lift left shoulder overhead, overactivation of left upper trap with postural asymmetry, unable to reach to side or behind back left UE Senior Living Goal (LTG) Decrease pain and muscle guarding, with patient able to demonstrate full functional use of his left UE. 09/23/21: See measurements taken:Decreased in AROM L shld seated, limited by pain and weakness: regressed 53 deg FF regressed 66 deg ABD regressed 2 deg ER regressed standing IR L shld PROM supine: FF 138 deg ABD 135 deg LTG Duration 01/05/22 Three Impairment weakness right shoulder and postural impairment Short Term Goal (STG) patient will be instructed in HEP consisting of therapeutic exercises for right shoulder strengthening, ROM, and postural correction STG Duration goal met Metallurgical Analyst Goal (LTG) Patient will be independent with HEP and demonstrate improved right shoulder ROM to WFL and strength to at least 4+/5 all planes 10/05/21: good goal progress right shoulder, reporting feels at least 60% better LTG Duration 01/05/22 Two Impairment decreased activity tolerance right shoulder Impairment QuickDash disability index score right shoulder 48% Metallurgical Analyst Goal (LTG) Decrease Quickdash score to no greater than 15% as measure of improved activity tolerance and improved functional use of right shoulder 09/15/21: good goal progress, mostly achieved 10/05/21: 47.7% left shoulder. Achieved for right shoulder LTG Duration 01/05/22 One Impairment pain right shoulder as high as 8/10 Metallurgical Analyst Goal (LTG) Decrease pain to no greater than 2/10 with all usual activities including photography and his other art activities 09/15/21: good goal progress, mostly achieved. 10/05/21: pt report L 3-4/10 when tires gets cramps in hands, R shld no pain. LTG Duration 01/05/22 Progress Towards Goals Progress Towards Goals Slow Progress due to Activity Tolerance Progress Comments Seated AROM improvements in since 09/23 measurements but continues to be limited (see measurements taken today): FF- Improved 3deg ABD- 74* no change ROM ER- improved by 7 deg Assessment Summary Assessment Pt reported pain posterolateral L shld to mid humerus, points to deeper into posterior L shld of AC jt, especially into FF, ABD and ER end feel limted ROM. Cues for awareness of no L UT recruitment during ther ex, able to increase theraband resistance close chain L shld strengthening. Pt will contact Dr Vargas office again today for xray results on L shld and seeing if further assessment recommended. Physical Therapy Plan Frequency and Duration Frequency of Treatment 2x/Week Duration of Treatment 8 weeks Plan of Care Start Date 10/05/21 Plan of Care End Date 01/05/22 Therapeutic Interventions Therapeutic Interventions Aquatic Therapy,Home Exercise Program,Lymphedema Management, Neuromuscular Re-education, Patient/Caregiver Education, Self-Care/Home Management,Soft Tissue Mobilization,Taping, Therapeutic Activities, Therapeutic Exercises Modalities Cold Pack/Ice Massage,Electric Stimulation,Hot Packs, Infrared Therapy,Iontophoresis ,Ultrasound Other Referrals/Consults Referrals/Consults Recommended 09/19/21: PT reported in assessment: Pt to contact Dr. Vargas regarding potential imaging of left shoulder. 09/23/21 and 10/18/21: CUSTOMER PROFESSIONAL agrees: recommending L shld further assessment, demonstrated limited/decreased AROM and reports pain all directions arm away from body, see measurements taken this tx seated/supine. Next Visit Focus/Plan Next Note Type Treatment Note Next Visit Plan Continue PT treatment with emphasis on left shoulder pain reduction, ROM, strengthening to improve functional use and ability to do all usual activities with minimal to no pain.
--- NOTE | 2021-10-25 17:19 | PT.OTN ---
Current Diagnoses Pain in left shoulder (10/25/21) Pain in unspecified shoulder (10/25/21) Pain in right arm (10/25/21) Abnormal posture (10/25/21) Weakness (10/25/21) Physical Therapy Treatment Note PT-OP-A Visit Information Start: 08/08/21 17:25 Freq: Status: Active Protocol: Document 10/25/21 08:22 SAK (Rec: 10/25/21 08:58 [facility] [id number]) Out-Patient Physical Therapy Visit Information Visit Information Visit Type Treatment Note Visit Start Time 08:15 Visit Stop Time 09:11 Total Visit Minutes 56 Visit Number 13 Number of DYE TANK TENDER Visits 0 Evaluation Information Evaluation Date 08/09/21 PT-OP-B Current Condition Start: 08/08/21 17:25 Freq: Status: Active Protocol: Document 09/19/21 09:09 SAK (Rec: 09/19/21 10:06 [facility] [id number]) Current Condition History of Current Condition Onset Date 2 months Current Complaints right scapula and shoulder pain History of Current Condition Reports persistent right sided scapula and shoulder pain. No precipitating event unless related to fall in March due to COPD; fractured right foot. Doesn't remember the fall. Taken to hospital, returned due to persistent foot pain and fracture discovered. Surgical repair then rehab for 1 month. Thinks right shoulder pain may have started in rehab. Using arms to compensate for ankle fracture, maybe using arms more than prior to injury. Difficulty reaching overhead or behind his back. Feels like a nerve being pinched. History bilateral TKA Prior Treatments and Tests no imaging takes Tylenol, no use of ice or heat. Future Testing and Treatments Planned returns to doctor after completes PT. 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 Some improvement in pain after PT. PT-OP-J Posture/Palpation/Skin Start: 08/08/21 17:25 Freq: Status: Active Protocol: Document 08/09/21 08:16 SAK (Rec: 08/10/21 15:47 [facility] [id number]) Posture Evaluation Position Sitting Head/C-Spine Posture Forward Head T-Spine Posture Increased Kyphosis Shoulder Posture (L) Rounded,(R) Rounded Scapula Posture (L) Protracted,(R) Protracted Arm Posture (L) Internally Rotated,(R) Internally Rotated PT-OP-K Range of Motion Start: 08/08/21 17:25 Freq: Status: Active Protocol: Document 10/18/21 08:17 SP (Rec: 10/18/21 09:06 SP [id number]) Shoulder Goniometric Range of Motion Shoulder Left Shoulder ROM WFL No Testing Position Sitting Flexion 90 Abduction 74 External Rotation at 0 degrees Abduction 50 Comments Supine PROM: FF- PROM 128*, AROM 124* ABD-PROM 107*, AROM 101* ER (45* ABD)- AROM 62* Seated AROM: FF- Improved 3deg ABD- 74* no change ROM ER- improved by 7 deg PT-OP-L Special Tests Start: 08/08/21 17:25 Freq: Status: Active Protocol: Document 08/09/21 08:16 SAK (Rec: 08/10/21 15:47 SAK [id number]) Special Tests Shoulder Special Tests Reese Mario Impingement Test Results positive joellen right greater than left Elevation Impingement Test Results positive joellen right greater than left Drop Arm Rotator Cuff Test Results negative PT-OP-M Strength Start: 08/08/21 17:25 Freq: Status: Active Protocol: Document 08/09/21 08:16 SAK (Rec: 08/10/21 15:47 SAK [id number]) Scapula Strength Scapula Manual Muscle Testing Right Elevation (C4) 4- Good- Adduction 4- Good- Abduction 4- Good- Depression 4- Good- Left Elevation (C4) 4 Good Adduction 4 Good Abduction 4 Good Depression 4 Good Shoulder Strength Shoulder Manual Muscle Testing Right Flexion 4- Good- Extension 4- Good- Abduction (C5) 3+ Fair+ External Rotation 4- Good- Internal Rotation 4- Good- Left Flexion 4 Good Extension 4 Good Adduction 4+ Good+ External Rotation 4- Good- Internal Rotation 4 Good Elbow/Forearm Strength Elbow and Forearm Manual Muscle Testing joellen Flexion (C6) 4 Good Extension (C7) 4 Good PT-OP-Q Treatments Start: 08/08/21 17:25 Freq: Status: Active Protocol: Document 10/25/21 08:22 SAK (Rec: 10/25/21 08:58 SAK [id number]) Cardio Equipment Recumbent Stepper (Sci-Fit) Duration (Minutes) 8 Resistance 2.0 Seat Position 11 Other UE's/LE's, cues for emphasis on pull back, RPM 60-65, Therapeutic Exercises Sidelying Exercises shoulder ER Side left Equipment Used towel roll under arm Reps/Minutes x8 reps Comments 2/10 pain open book Side left Reps/Minutes x5 Comments good feedback painfree, cued scap glide, head with arm and TS rotation Sitting Exercises pull downs Sitting Exercise Name rear facing pull downs- added to HEP-assimulate cable lat pulldown for home Side bilateral Resistance TB #2 Equipment Used almost no pain reported Reps/Minutes 2x10 Comments cued scap retraction/upright posture- painfree, little muscle work feel table slide Side left Resistance AAROM Equipment Used slider sheet Reps/Minutes 10x Comments pain end feel 107 deg FF pulleys Sitting Exercise Name flexion and scaption Side bilateral Equipment Used mirror Reps/Minutes 10x each direction Comments Cued use mirror and cues for no UT recruitment Standing Exercises shoulder IR. Standing Exercise Name HEP review Side left Resistance L2 TB Equipment Used towel under arm Reps/Minutes 10x2 Comments cued scapular retraction, dec UT activation row, shoulder ext Equipment Used TB L2 Reps/Minutes 10x Comments verbal and tactile cues, level shld shoulder ER Standing Exercise Name ER HEP review Side left Resistance L2 TB Equipment Used towel under arm Reps/Minutes 10x2 Comments cued 90deg elbow throughout range- painfree today 10/20 Manual Therapy Treatment Soft Tissue Mobilization RC Body Location L distal RTC tendons onto humerus, prox and mid bicep, distal pec Mobilization Type Manual Lymphatic Drainage, Rolling Intensity/Depth Deep Body Position Hooklying Comments gentle manual LS, rhomboids Body Location L Mobilization Type Myofascial Release,Strumming, Sustained Pressure Intensity/Depth Moderate Body Position Sidelying Joint Mobilizations L GH Jt Joint inferior/ posterior glide Grade II Body Position Hooklying Comments good feedback painfree- PT-OP-R Modalities Start: 08/08/21 17:25 Freq: Status: Active Protocol: Document 09/19/21 09:09 [facility] (Rec: 09/19/21 10:06 [facility] [id number]) Electric Stimulation Electric Stimulation left shoulder Duration (Minutes) 15 Intensity 13 Target/Sweep Sweep Patient Position Supine Combined With Heat/Cold Hot Pack PT-OP-T Assessment and Plan Start: 08/08/21 17:25 Freq: Status: Active Protocol: Document 10/25/21 08:22 [facility] (Rec: 10/25/21 08:58 [facility] [id number]) Physical Therapy Assessment Goals Four Impairment left shoulder pain and dysfunction Impairment inability to lift left shoulder overhead, overactivation of left upper trap with postural asymmetry, unable to reach to side or behind back left UE Nursing Home Goal (LTG) Decrease pain and muscle guarding, with patient able to demonstrate full functional use of his left UE. 09/23/21: See measurements taken:Decreased in AROM L shld seated, limited by pain and weakness: regressed 53 deg FF regressed 66 deg ABD regressed 2 deg ER regressed standing IR L shld PROM supine: FF 138 deg ABD 135 deg LTG Duration 01/05/22 Three Impairment weakness right shoulder and postural impairment Short Term Goal (STG) patient will be instructed in HEP consisting of therapeutic exercises for right shoulder strengthening, ROM, and postural correction STG Duration goal met Nursing Home Goal (LTG) Patient will be independent with HEP and demonstrate improved right shoulder ROM to WFL and strength to at least 4+/5 all planes 10/05/21: good goal progress right shoulder, reporting feels at least 60% better LTG Duration 01/05/22 Two Impairment decreased activity tolerance right shoulder Impairment QuickDash disability index score right shoulder 48% Nursing Home Goal (LTG) Decrease Quickdash score to no greater than 15% as measure of improved activity tolerance and improved functional use of right shoulder 09/15/21: good goal progress, mostly achieved 10/05/21: 47.7% left shoulder. Achieved for right shoulder LTG Duration 01/05/22 One Impairment pain right shoulder as high as 8/10 Online Banking Specialist Goal (LTG) Decrease pain to no greater than 2/10 with all usual activities including photography and his other art activities 09/15/21: good goal progress, mostly achieved. 10/05/21: pt report L 3-4/10 when tires gets cramps in hands, R shld no pain. LTG Duration 01/05/22 Assessment Summary Assessment x-ray left shoulder: Severe glenohumeral joint degenerative change. Marked deformity of the humeral head neck from remote trauma. Cannot exclude occult superimposed injury. Consider further imaging with shoulder MRI if suspect acute fracture . Fair tolerance for ther ex, patient awaiting orthopedic referral. Feel he needs 1 further PT treatment to assure safe and independent performance of HEP, progress as indicated, then we may want to hold PT until he sees orthopedist. Physical Therapy Plan Frequency and Duration Frequency of Treatment 2x/Week Duration of Treatment 8 weeks Plan of Care Start Date 10/05/21 Plan of Care End Date 01/05/22 Therapeutic Interventions Therapeutic Interventions Aquatic Therapy,Home Exercise Program,Lymphedema Management, Neuromuscular Re-education, Patient/Caregiver Education, Self-Care/Home Management,Soft Tissue Mobilization,Taping, Therapeutic Activities, Therapeutic Exercises Modalities Cold Pack/Ice Massage,Electric Stimulation,Hot Packs, Infrared Therapy,Iontophoresis ,Ultrasound Next Visit Focus/Plan Next Note Type Treatment Note Next Visit Plan Progress HEP as tolerated assure correct performance and understanding, discuss possible hold PT until sees orthopedist.
--- NOTE | 2021-10-26 11:45 | PT.OTN ---
Current Diagnoses Pain in left shoulder (10/26/21) Pain in unspecified shoulder (10/26/21) Pain in right arm (10/26/21) Abnormal posture (10/26/21) Weakness (10/26/21) Physical Therapy Treatment Note PT-OP-A Visit Information Start: 08/08/21 17:25 Freq: Status: Active Protocol: Document 10/26/21 11:45 SAK (Rec: 10/27/21 08:25 SAK [id number]) Out-Patient Physical Therapy Visit Information Visit Information Visit Type Aquatic Treatment Note Visit Start Time 11:45 Visit Stop Time 12:30 Total Visit Minutes 45 Visit Number 14 Evaluation Information Evaluation Date 10/26/21 PT-OP-B Current Condition Start: 08/08/21 17:25 Freq: Status: Active Protocol: Document 09/19/21 09:09 SAK (Rec: 09/19/21 10:06 SAK [id number]) Current Condition History of Current Condition Onset Date 2 months Current Complaints right scapula and shoulder pain History of Current Condition Reports persistent right sided scapula and shoulder pain. No precipitating event unless related to fall in March due to COPD; fractured right foot. Doesn't remember the fall. Taken to hospital, returned due to persistent foot pain and fracture discovered. Surgical repair then rehab for 1 month. Thinks right shoulder pain may have started in rehab. Using arms to compensate for ankle fracture, maybe using arms more than prior to injury. Difficulty reaching overhead or behind his back. Feels like a nerve being pinched. History bilateral TKA Prior Treatments and Tests no imaging takes Tylenol, no use of ice or heat. Future Testing and Treatments Planned returns to doctor after completes PT. PT-OP-C Subjective Start: 08/08/21 17:25 Freq: Status: Active Protocol: Document 10/26/21 11:45 SAK (Rec: 10/27/21 08:25 SAK [id number]) OP-PT Subjective Patient Comments Patient Comments Seeing orthopedist in [facility] regarding his left shoulder. Receptive to first aquatic PT visit today. PT-OP-J Posture/Palpation/Skin Start: 08/08/21 17:25 Freq: Status: Active Protocol: Document 08/09/21 08:16 SAK (Rec: 08/10/21 15:47 SAK [id number]) Posture Evaluation Position Sitting Head/C-Spine Posture Forward Head T-Spine Posture Increased Kyphosis Shoulder Posture (L) Rounded,(R) Rounded Scapula Posture (L) Protracted,(R) Protracted Arm Posture (L) Internally Rotated,(R) Internally Rotated PT-OP-K Range of Motion Start: 08/08/21 17:25 Freq: Status: Active Protocol: Document 10/18/21 08:17 SP (Rec: 10/18/21 09:06 SP [id number]) Shoulder Goniometric Range of Motion Shoulder Left Shoulder ROM WFL No Testing Position Sitting Flexion 90 Abduction 74 External Rotation at 0 degrees Abduction 50 Comments Supine PROM: FF- PROM 128*, AROM 124* ABD-PROM 107*, AROM 101* ER (45* ABD)- AROM 62* Seated AROM: FF- Improved 3deg ABD- 74* no change ROM ER- improved by 7 deg PT-OP-L Special Tests Start: 08/08/21 17:25 Freq: Status: Active Protocol: Document 08/09/21 08:16 SAK (Rec: 08/10/21 15:47 [facility] [id number]) Special Tests Shoulder Special Tests Reese Mario Impingement Test Results positive joellen right greater than left Elevation Impingement Test Results positive joellen right greater than left Drop Arm Rotator Cuff Test Results negative PT-OP-M Strength Start: 08/08/21 17:25 Freq: Status: Active Protocol: Document 08/09/21 08:16 SAK (Rec: 08/10/21 15:47 SAK [id number]) Scapula Strength Scapula Manual Muscle Testing Right Elevation (C4) 4- Good- Adduction 4- Good- Abduction 4- Good- Depression 4- Good- Left Elevation (C4) 4 Good Adduction 4 Good Abduction 4 Good Depression 4 Good Shoulder Strength Shoulder Manual Muscle Testing Right Flexion 4- Good- Extension 4- Good- Abduction (C5) 3+ Fair+ External Rotation 4- Good- Internal Rotation 4- Good- Left Flexion 4 Good Extension 4 Good Adduction 4+ Good+ External Rotation 4- Good- Internal Rotation 4 Good Elbow/Forearm Strength Elbow and Forearm Manual Muscle Testing joellen Flexion (C6) 4 Good Extension (C7) 4 Good PT-OP-Q Treatments Start: 08/08/21 17:25 Freq: Status: Active Protocol: Document 10/25/21 08:22 SAK (Rec: 10/25/21 08:58 SAK [id number]) Cardio Equipment Recumbent Stepper (Sci-Fit) Duration (Minutes) 8 Resistance 2.0 Seat Position 11 Other UE's/LE's, cues for emphasis on pull back, RPM 60-65, Therapeutic Exercises Sidelying Exercises shoulder ER Side left Equipment Used towel roll under arm Reps/Minutes x8 reps Comments 2/10 pain open book Side left Reps/Minutes x5 Comments good feedback painfree, cued scap glide, head with arm and TS rotation Sitting Exercises pull downs Sitting Exercise Name rear facing pull downs- added to HEP-assimulate cable lat pulldown for home Side bilateral Resistance TB #2 Equipment Used almost no pain reported Reps/Minutes 2x10 Comments cued scap retraction/upright posture- painfree, little muscle work feel table slide Side left Resistance AAROM Equipment Used slider sheet Reps/Minutes 10x Comments pain end feel 107 deg FF pulleys Sitting Exercise Name flexion and scaption Side bilateral Equipment Used mirror Reps/Minutes 10x each direction Comments Cued use mirror and cues for no UT recruitment Standing Exercises shoulder IR. Standing Exercise Name HEP review Side left Resistance L2 TB Equipment Used towel under arm Reps/Minutes 10x2 Comments cued scapular retraction, dec UT activation row, shoulder ext Equipment Used TB L2 Reps/Minutes 10x Comments verbal and tactile cues, level shld shoulder ER Standing Exercise Name ER HEP review Side left Resistance L2 TB Equipment Used towel under arm Reps/Minutes 10x2 Comments cued 90deg elbow throughout range- painfree today 10/20 Manual Therapy Treatment Soft Tissue Mobilization RC Body Location L distal RTC tendons onto humerus, prox and mid bicep, distal pec Mobilization Type Manual Lymphatic Drainage, Rolling Intensity/Depth Deep Body Position Hooklying Comments gentle manual LS, rhomboids Body Location L Mobilization Type Myofascial Release,Strumming, Sustained Pressure Intensity/Depth Moderate Body Position Sidelying Joint Mobilizations L GH Jt Joint inferior/ posterior glide Grade II Body Position Hooklying Comments good feedback painfree- PT-OP-R Modalities Start: 08/08/21 17:25 Freq: Status: Active Protocol: Document 09/19/21 09:09 [facility] (Rec: 09/19/21 10:06 [facility] [id number]) Electric Stimulation Electric Stimulation left shoulder Duration (Minutes) 15 Intensity 13 Target/Sweep Sweep Patient Position Supine Combined With Heat/Cold Hot Pack PT-OP-S Aquatic Treatment Start: 08/08/21 17:25 Freq: Status: Active Protocol: Document 10/26/21 11:45 [facility] (Rec: 10/27/21 08:25 [facility] [id number]) Aquatics Treatment Pool Entry/Exit Pool Entry/Exit Method Stairs Assistance Contact Guard Assistance, Verbal Cues Water Walking sidestepping with shoulder ab/ad Water Level Chest Level Level of Assistance Verbal Cues Comments cues to relax left shoulder down bckwd with reverse breastroke UE's Water Level Chest Level Level of Assistance Verbal Cues Comments cues to relax left shoulder down fwd with breastroke UE's Water Level Chest Level Level of Assistance Verbal Cues Comments cues to relax left shoulder down Upper Extremity Exercises lateral push Details with forearm pron and supination Body Position Standing Water Level Neck Level Reps/Duration 10x Comments cues for pain-free ROM and relax left shoulder down shoulder flex/ext Body Position Standing Water Level Neck Level Reps/Duration 10x Comments cues for pain-free ROM and relax left shoulder down shoulder circles Body Position Standing Water Level Neck Level Reps/Duration 10 x CW and CCW Comments cues for pain-free ROM and relax left shoulder down shoulder IR/ER Water Level Neck Level Reps/Duration 10x Comments cues for pain-free ROM and relax left shoulder down [place] Activities [place] Activities Bicycle Comments with breastroke UE's, alternating UE's, cues for pain-free ROM and relaxing left shoulder down Swim Strokes Breastroke Equipment Noodle Laps/Duration 25 m Comments cues for pain-free ROM Elementary Backstroke Equipment Ankle Floats,Neck Float Laps/Duration 25m, 10 m Comments cues for pain-free ROM Manual Techniques [place] passive for trunk and UE PROM, neck float and floats below knees. Aquatic Massage periscapular region PT-OP-T Assessment and Plan Start: 08/08/21 17:25 Freq: Status: Active Protocol: Document 10/26/21 11:45 [facility] (Rec: 10/27/21 08:25 [facility] [id number]) Physical Therapy Assessment Impairments Impairments Activity Tolerance,Pain, Posture,Strength Goals Four Impairment left shoulder pain and dysfunction Impairment inability to lift left shoulder overhead, overactivation of left upper trap with postural asymmetry, unable to reach to side or behind back left UE Foreign Service Officer Goal (LTG) Decrease pain and muscle guarding, with patient able to demonstrate full functional use of his left UE. 09/23/21: See measurements taken:Decreased in AROM L shld seated, limited by pain and weakness: regressed 53 deg FF regressed 66 deg ABD regressed 2 deg ER regressed standing IR L shld PROM supine: FF 138 deg ABD 135 deg LTG Duration 01/05/22 Three Impairment weakness joellen shoulder and postural impairment Short Term Goal (STG) patient will be instructed in HEP consisting of therapeutic exercises for right shoulder strengthening, ROM, and postural correction STG Duration goal met Assisted Goal (LTG) Patient will be independent with HEP and demonstrate improved right shoulder ROM to WFL and strength to at least 4+/5 all planes 10/05/21: good goal progress right shoulder, reporting feels at least 60% better, now having left shoulder pain. LTG Duration 01/05/22 Two Impairment decreased activity tolerance bilateral shoulders Impairment QuickDash disability index score right shoulder 48% Assisted Goal (LTG) Decrease Quickdash score to no greater than 15% as measure of improved activity tolerance and improved functional use of right shoulder 09/15/21: good goal progress, mostly achieved 10/05/21: 47.7% left shoulder. Achieved for right shoulder LTG Duration 01/05/22 One Impairment pain joellen shoulders as high as 8/10 Assisted Goal (LTG) Decrease pain to no greater than 2/10 with all usual activities including photography and his other art activities 09/15/21: good goal progress, mostly achieved. 10/05/21: pt report L 3-4/10 when tires gets cramps in hands, R shld no pain. LTG Duration 01/05/22 Progress Towards Goals Progress Towards Goals Slow Progress due to Activity Tolerance Assessment Summary Assessment Patient demonstrated improved active mobility in aquatic environment with buoyancy support, frequent cues to relax left shoulder down due to habitual overactivation of UT with elevation. Tolerated elevation FF to 90 deg, abduction to 75 in standing postion, modified elementary backstroke and breastroke with flotation assist and dec ROM. Patient reports not comfortable with mask and snorkel so prone ex will be limited. Patient fatigues rapidly. Feel he would benefit highly from further aquatic therapy to assure independence and safety with aquatic exercises. He is seeing orthopedist tomorrow and will await outcome and further recommendations. Physical Therapy Plan Frequency and Duration Frequency of Treatment 2x/Week Duration of Treatment 8 weeks Plan of Care Start Date 10/05/21 Plan of Care End Date 01/05/22 Therapeutic Interventions Therapeutic Interventions Aquatic Therapy,Home Exercise Program,Lymphedema Management, Neuromuscular Re-education, Patient/Caregiver Education, Self-Care/Home Management,Soft Tissue Mobilization,Taping, Therapeutic Activities, Therapeutic Exercises Modalities Cold Pack/Ice Massage,Electric Stimulation,Hot Packs, Infrared Therapy,Iontophoresis ,Ultrasound Next Visit Focus/Plan Next Note Type Treatment Note Next Visit Plan Continue land and aquatic PT to assure safe and independent performance of HEP for strengthening and ROM left shoulder pending any further recommendations from orthopedist.
--- NOTE | 2021-11-01 07:52 | PT-OP ANOTE ---
Pt did not show for 0730 appt today. [employer] called and left message regarding. Discussed next appt is aquatic tomorrow with [employer] [place] and only 1 more land appt 11/08 with [employer] as well. [employer] recommended needing to set up more appts and will send message to schedulers. Inquired how ortho appt went and what was suggested if regarding PT appts forward and also [employer] [place] had opening at 1215 today if wishes to attend but aware may receive a NS fee due to missed 0730 appt.
--- NOTE | 2021-11-02 15:13 | PT.OTN ---
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 No precipitating event unless related to fall in March due to COPD; fractured right foot. Doesn't remember the fall. Taken to hospital, returned due to persistent foot pain and fracture discovered. Surgical repair then rehab for 1 month. Thinks right shoulder pain may have started in rehab. Using arms to compensate for ankle fracture, maybe using arms more than prior to injury. Difficulty reaching overhead or behind his back. Feels like a nerve being pinched. History bilateral TKA Prior Treatments and Tests no imaging takes Tylenol, no use of ice or heat. Future Testing and Treatments Planned returns to doctor after completes PT. PT-OP-C Subjective Start: 08/08/21 17:25 Freq: Status: Active Protocol: Document 11/02/21 14:53 LJ (Rec: 11/02/21 15:13 LJ [id number]) OP-PT Subjective Patient Comments Patient Comments Pt did not have anything new to report concerning his shoulder. States he has had no change in pain or functionality of L shoulder PT-OP-J Posture/Palpation/Skin Start: 08/08/21 17:25 Freq: Status: Active Protocol: Document 08/09/21 08:16 SAK (Rec: 08/10/21 15:47 SAK [id number]) Posture Evaluation Position Sitting Head/C-Spine Posture Forward Head T-Spine Posture Increased Kyphosis Shoulder Posture (L) Rounded,(R) Rounded Scapula Posture (L) Protracted,(R) Protracted Arm Posture (L) Internally Rotated,(R) Internally Rotated PT-OP-K Range of Motion Start: 08/08/21 17:25 Freq: Status: Active Protocol: Document 10/18/21 08:17 SP (Rec: 10/18/21 09:06 SP [id number]) Shoulder Goniometric Range of Motion Shoulder Left Shoulder ROM WFL No Testing Position Sitting Flexion 90 Abduction 74 External Rotation at 0 degrees Abduction 50 Comments Supine PROM: FF- PROM 128*, AROM 124* ABD-PROM 107*, AROM 101* ER (45* ABD)- AROM 62* Seated AROM: FF- Improved 3deg ABD- 74* no change ROM ER- improved by 7 deg PT-OP-L Special Tests Start: 08/08/21 17:25 Freq: Status: Active Protocol: Document 08/09/21 08:16 SAK (Rec: 08/10/21 15:47 SAK [id number]) Special Tests Shoulder Special Tests Reese Mario Impingement Test Results positive joellen right greater than left Elevation Impingement Test Results positive joellen right greater than left Drop Arm Rotator Cuff Test Results negative PT-OP-M Strength Start: 08/08/21 17:25 Freq: Status: Active Protocol: Document 08/09/21 08:16 SAK (Rec: 08/10/21 15:47 SAK [id number]) Scapula Strength Scapula Manual Muscle Testing Right Elevation (C4) 4- Good- Adduction 4- Good- Abduction 4- Good- Depression 4- Good- Left Elevation (C4) 4 Good Adduction 4 Good Abduction 4 Good Depression 4 Good Shoulder Strength Shoulder Manual Muscle Testing Right Flexion 4- Good- Extension 4- Good- Abduction (C5) 3+ Fair+ External Rotation 4- Good- Internal Rotation 4- Good- Left Flexion 4 Good Extension 4 Good Adduction 4+ Good+ External Rotation 4- Good- Internal Rotation 4 Good Elbow/Forearm Strength Elbow and Forearm Manual Muscle Testing joellen Flexion (C6) 4 Good Extension (C7) 4 Good PT-OP-Q Treatments Start: 08/08/21 17:25 Freq: Status: Active Protocol: Document 10/25/21 08:22 SAK (Rec: 10/25/21 08:58 [facility] [id number]) Cardio Equipment Recumbent Stepper (Sci-Fit) Duration (Minutes) 8 Resistance 2.0 Seat Position 11 Other UE's/LE's, cues for emphasis on pull back, RPM 60-65, Therapeutic Exercises Sidelying Exercises shoulder ER Side left Equipment Used towel roll under arm Reps/Minutes x8 reps Comments 2/10 pain open book Side left Reps/Minutes x5 Comments good feedback painfree, cued scap glide, head with arm and TS rotation Sitting Exercises pull downs Sitting Exercise Name rear facing pull downs- added to HEP-assimulate cable lat pulldown for home Side bilateral Resistance TB #2 Equipment Used almost no pain reported Reps/Minutes 2x10 Comments cued scap retraction/upright posture- painfree, little muscle work feel table slide Side left Resistance AAROM Equipment Used slider sheet Reps/Minutes 10x Comments pain end feel 107 deg FF pulleys Sitting Exercise Name flexion and scaption Side bilateral Equipment Used mirror Reps/Minutes 10x each direction Comments Cued use mirror and cues for no UT recruitment Standing Exercises shoulder IR. Standing Exercise Name HEP review Side left Resistance L2 TB Equipment Used towel under arm Reps/Minutes 10x2 Comments cued scapular retraction, dec UT activation row, shoulder ext Equipment Used TB L2 Reps/Minutes 10x Comments verbal and tactile cues, level shld shoulder ER Standing Exercise Name ER HEP review Side left Resistance L2 TB Equipment Used towel under arm Reps/Minutes 10x2 Comments cued 90deg elbow throughout range- painfree today 10/20 Manual Therapy Treatment Soft Tissue Mobilization RC Body Location L distal RTC tendons onto humerus, prox and mid bicep, distal pec Mobilization Type Manual Lymphatic Drainage, Rolling Intensity/Depth Deep Body Position Hooklying Comments gentle manual LS, rhomboids Body Location L Mobilization Type Myofascial Release,Strumming, Sustained Pressure Intensity/Depth Moderate Body Position Sidelying Joint Mobilizations L GH Jt Joint inferior/ posterior glide Grade II Body Position Hooklying Comments good feedback painfree- PT-OP-R Modalities Start: 08/08/21 17:25 Freq: Status: Active Protocol: Document 09/19/21 09:09 [facility] (Rec: 09/19/21 10:06 [facility] [id number]) Electric Stimulation Electric Stimulation left shoulder Duration (Minutes) 15 Intensity 13 Target/Sweep Sweep Patient Position Supine Combined With Heat/Cold Hot Pack PT-OP-S Aquatic Treatment Start: 08/08/21 17:25 Freq: Status: Active Protocol: Document 11/02/21 14:53 TRISTIN (Rec: 11/02/21 15:13 [id number]) Aquatics Treatment Pool Entry/Exit Pool Entry/Exit Method Stairs Assistance Contact Guard Assistance, Verbal Cues Water Walking forward Water Level Chest Level Level of Assistance Verbal Cues Comments used BBs 1 lap for improved muscle activation sidestepping with shoulder ab/ad Water Level Chest Level Level of Assistance Verbal Cues Comments cues to relax left shoulder down bckwd with reverse breastroke UE's Water Level Chest Level Level of Assistance Verbal Cues Comments cues to relax left shoulder down fwd with breastroke UE's Water Level Chest Level Level of Assistance Verbal Cues Comments cues to relax left shoulder down Upper Extremity Exercises lateral push Details with forearm pron and supination Body Position Sitting Water Level Neck Level Reps/Duration 10x Comments cues for pain-free ROM and relax left shoulder down shoulder flex/ext Body Position Sitting Water Level Neck Level Reps/Duration 10x Comments cues for pain-free ROM and relax left shoulder down shoulder circles Body Position Standing Water Level Neck Level Reps/Duration 10 x CW and CCW Comments cues for pain-free ROM and relax left shoulder down shoulder IR/ER Water Level Neck Level Reps/Duration 10x Comments cues for pain-free ROM and relax left shoulder down [place] Activities [place] Activities Bicycle Comments with breastroke UE's, alternating UE's, cues for pain-free ROM and relaxing left shoulder down VC for vertical alignment Swim Strokes Breastroke Laps/Duration 25 m Comments blue float Elementary Backstroke Equipment Ankle Floats,Neck Float Laps/Duration 15m Comments cues for pain-free ROM Manual Techniques Bad Ragaz passive for trunk and UE PROM, neck float and floats below knees. PT-OP-T Assessment and Plan Start: 08/08/21 17:25 Freq: Status: Active Protocol: Document 11/02/21 14:53 TRISTIN (Rec: 11/02/21 15:13 TRISTIN [id number]) Physical Therapy Assessment Impairments Impairments Activity Tolerance,Pain, Posture,Strength Goals Four Impairment left shoulder pain and dysfunction Impairment inability to lift left shoulder overhead, overactivation of left upper trap with postural asymmetry, unable to reach to side or behind back left UE Associate Quality Engineer Goal (LTG) Decrease pain and muscle guarding, with patient able to demonstrate full functional use of his left UE. 09/23/21: See measurements taken:Decreased in AROM L shld seated, limited by pain and weakness: regressed 53 deg FF regressed 66 deg ABD regressed 2 deg ER regressed standing IR L shld PROM supine: FF 138 deg ABD 135 deg LTG Duration 01/05/22 Three Impairment weakness joellen shoulder and postural impairment Short Term Goal (STG) patient will be instructed in HEP consisting of therapeutic exercises for right shoulder strengthening, ROM, and postural correction STG Duration goal met Halfway Goal (LTG) Patient will be independent with HEP and demonstrate improved right shoulder ROM to WFL and strength to at least 4+/5 all planes 10/05/21: good goal progress right shoulder, reporting feels at least 60% better, now having left shoulder pain. LTG Duration 01/05/22 Two Impairment decreased activity tolerance bilateral shoulders Impairment QuickDash disability index score right shoulder 48% Halfway Goal (LTG) Decrease Quickdash score to no greater than 15% as measure of improved activity tolerance and improved functional use of right shoulder 09/15/21: good goal progress, mostly achieved 10/05/21: 47.7% left shoulder. Achieved for right shoulder LTG Duration 01/05/22 One Impairment pain joellen shoulders as high as 8/10 Halfway Goal (LTG) Decrease pain to no greater than 2/10 with all usual activities including photography and his other art activities 09/15/21: good goal progress, mostly achieved. 10/05/21: pt report L 3-4/10 when tires gets cramps in hands, R shld no pain. LTG Duration 01/05/22 Progress Towards Goals Progress Towards Goals Slow Progress due to Activity Tolerance Assessment Summary Assessment Pt required many verbal and tactile cues for shoulder depression. Able to achieve 90 degrees ABD in supine with PROM. Maintaining vertical alignment in deep water was a challenge but he stated he was fine with the floatation equipment he was using. He would benefit highly from further aquatic therapy to assure independence and safety with aquatic exercises. Physical Therapy Plan Frequency and Duration Frequency of Treatment 2x/Week Duration of Treatment 8 weeks Plan of Care Start Date 10/05/21 Plan of Care End Date 01/05/22 Therapeutic Interventions Therapeutic Interventions Aquatic Therapy,Home Exercise Program,Lymphedema Management, Neuromuscular Re-education, Patient/Caregiver Education, Self-Care/Home Management,Soft Tissue Mobilization,Taping, Therapeutic Activities, Therapeutic Exercises Modalities Cold Pack/Ice Massage,Electric Stimulation,Hot Packs, Infrared Therapy,Iontophoresis ,Ultrasound Next Visit Focus/Plan Next Note Type Treatment Note Next Visit Plan Continue land and aquatic PT to assure safe and independent performance of HEP for strengthening and ROM left shoulder pending any further recommendations from orthopedist. Trial tubular floatation vest next session for improvement in vertical exercises in deep water
--- NOTE | 2021-11-03 16:22 | PT.OTN ---
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 No precipitating event unless related to fall in March due to COPD; fractured right foot. Doesn't remember the fall. Taken to hospital, returned due to persistent foot pain and fracture discovered. Surgical repair then rehab for 1 month. Thinks right shoulder pain may have started in rehab. Using arms to compensate for ankle fracture, maybe using arms more than prior to injury. Difficulty reaching overhead or behind his back. Feels like a nerve being pinched. History bilateral TKA Prior Treatments and Tests no imaging takes Tylenol, no use of ice or heat. Future Testing and Treatments Planned returns to doctor after completes PT. PT-OP-C Subjective Start: 08/08/21 17:25 Freq: Status: Active Protocol: Document 11/03/21 14:33 SAK (Rec: 11/03/21 15:16 [facility] [id number]) OP-PT Subjective Patient Comments Patient Comments Feels left shoulder a little better, likes aquatic therapy. No appointment with orthopedist yet. PT-OP-J Posture/Palpation/Skin Start: 08/08/21 17:25 Freq: Status: Active Protocol: Document 08/09/21 08:16 SAK (Rec: 08/10/21 15:47 [facility] [id number]) Posture Evaluation Position Sitting Head/C-Spine Posture Forward Head T-Spine Posture Increased Kyphosis Shoulder Posture (L) Rounded,(R) Rounded Scapula Posture (L) Protracted,(R) Protracted Arm Posture (L) Internally Rotated,(R) Internally Rotated PT-OP-K Range of Motion Start: 08/08/21 17:25 Freq: Status: Active Protocol: Document 10/18/21 08:17 SP (Rec: 10/18/21 09:06 SP [id number]) Shoulder Goniometric Range of Motion Shoulder Left Shoulder ROM WFL No Testing Position Sitting Flexion 90 Abduction 74 External Rotation at 0 degrees Abduction 50 Comments Supine PROM: FF- PROM 128*, AROM 124* ABD-PROM 107*, AROM 101* ER (45* ABD)- AROM 62* Seated AROM: FF- Improved 3deg ABD- 74* no change ROM ER- improved by 7 deg PT-OP-L Special Tests Start: 08/08/21 17:25 Freq: Status: Active Protocol: Document 08/09/21 08:16 SAK (Rec: 08/10/21 15:47 SAK [id number]) Special Tests Shoulder Special Tests Reese Mario Impingement Test Results positive joellen right greater than left Elevation Impingement Test Results positive joellen right greater than left Drop Arm Rotator Cuff Test Results negative PT-OP-M Strength Start: 08/08/21 17:25 Freq: Status: Active Protocol: Document 08/09/21 08:16 SAK (Rec: 08/10/21 15:47 SAK [id number]) Scapula Strength Scapula Manual Muscle Testing Right Elevation (C4) 4- Good- Adduction 4- Good- Abduction 4- Good- Depression 4- Good- Left Elevation (C4) 4 Good Adduction 4 Good Abduction 4 Good Depression 4 Good Shoulder Strength Shoulder Manual Muscle Testing Right Flexion 4- Good- Extension 4- Good- Abduction (C5) 3+ Fair+ External Rotation 4- Good- Internal Rotation 4- Good- Left Flexion 4 Good Extension 4 Good Adduction 4+ Good+ External Rotation 4- Good- Internal Rotation 4 Good Elbow/Forearm Strength Elbow and Forearm Manual Muscle Testing joellen Flexion (C6) 4 Good Extension (C7) 4 Good PT-OP-Q Treatments Start: 08/08/21 17:25 Freq: Status: Active Protocol: Document 11/03/21 14:33 SAK (Rec: 11/03/21 15:16 SAK [id number]) Cardio Equipment Recumbent Stepper (Sci-Fit) Duration (Minutes) 10 Resistance 2.0 Seat Position 11 Other UE's/LE's, cues for emphasis on pull back, decreased UT activati, RPM 72-74 Gym Equipment Cable Column (Body Solid) lat pull Details verbal and manual cues for scapular movement, lower trap activation Resistance 20 Reps/Time 10x row Details verbal and manual cues for UT inhib and lower trap activation Resistance 20 Reps/Time 10x2 Therapeutic Exercises Supine Exercises shoulder ER Supine Exercise Name PROM to AAROM to AROM Equipment Used towel roll Comments 45 Deg abduction shoulder PROM Side left Reps/Minutes 10x Comments increased pain end feel ER, IR and abd & FF passed 70 deg hor ab Equipment Used L1 TB Reps/Minutes 10x serratus punch Equipment Used wand Reps/Minutes 10x shoulder flexion Equipment Used wand Reps/Minutes 10x Comments painful Sidelying Exercises shoulder scaption Sidelying Exercise Name ABD inferior glide GH Side left Resistance AROM approx 80 deg Reps/Minutes x8 Comments cued slow painfree range 5/10 shoulder ER Side left Equipment Used towel roll under arm Reps/Minutes x8 reps Comments 2/10 pain open book Side left Reps/Minutes x5 Comments good feedback painfree, cued scap glide, head with arm and TS rotation Sitting Exercises pull downs Sitting Exercise Name rear facing pull downs- added to HEP-assimulate cable lat pulldown for home Side bilateral Resistance TB #2 Equipment Used almost no pain reported Reps/Minutes 2x10 Comments cued scap retraction/upright posture- painfree, little muscle work feel shoulder ER Sitting Exercise Name HEP reviewed Side left Resistance AROM Equipment Used arm rested on arm rest Reps/Minutes 5x Comments hand on table, forward lean posterior capsule stretch Reps/Minutes 2x30 UT stretch Comments lateral, post fibers, ant fibers, cues for neutral shoulders Standing Exercises scapular retraction Equipment Used mirror for visual feedback Reps/Minutes 10x3 Comments verbal and manual cues for scapular activation, less GH movement Manual Therapy Treatment Soft Tissue Mobilization long head of biceps Mobilization Type Manual Lymphatic Drainage, Strumming Body Position Hooklying UT Body Location L Mobilization Type Myofascial Release,Strumming Intensity/Depth Moderate Body Position Hooklying subscap Body Location trigger points Mobilization Type Sustained Pressure,Trigger Point Release Body Position Hooklying Comments pin and stretch Joint Mobilizations scapulothoracic Joint L Direction retraction, depression Grade II Body Position Sidelying Comments gentle PROM, painfree L GH Jt Joint inferior/ posterior glide Grade II Body Position Hooklying Comments dec pain when inf glide done with physiological GH flexion AAROM posterior glide painful today PT-OP-R Modalities Start: 08/08/21 17:25 Freq: Status: Active Protocol: Document 11/03/21 14:33 SAK (Rec: 11/03/21 15:16 SAK [id number]) Electric Stimulation Electric Stimulation left shoulder Duration (Minutes) 15 Intensity 13 Target/Sweep Sweep Patient Position Supine Combined With Heat/Cold Hot Pack PT-OP-S Aquatic Treatment Start: 08/08/21 17:25 Freq: Status: Active Protocol: Document 11/02/21 14:53 LJ (Rec: 11/02/21 15:13 LJ [id number]) Aquatics Treatment Pool Entry/Exit Pool Entry/Exit Method Stairs Assistance Contact Guard Assistance, Verbal Cues Water Walking forward Water Level Chest Level Level of Assistance Verbal Cues Comments used BBs 1 lap for improved muscle activation sidestepping with shoulder ab/ad Water Level Chest Level Level of Assistance Verbal Cues Comments cues to relax left shoulder down bckwd with reverse breastroke UE's Water Level Chest Level Level of Assistance Verbal Cues Comments cues to relax left shoulder down fwd with breastroke UE's Water Level Chest Level Level of Assistance Verbal Cues Comments cues to relax left shoulder down Upper Extremity Exercises lateral push Details with forearm pron and supination Body Position Sitting Water Level Neck Level Reps/Duration 10x Comments cues for pain-free ROM and relax left shoulder down shoulder flex/ext Body Position Sitting Water Level Neck Level Reps/Duration 10x Comments cues for pain-free ROM and relax left shoulder down shoulder circles Body Position Standing Water Level Neck Level Reps/Duration 10 x CW and CCW Comments cues for pain-free ROM and relax left shoulder down shoulder IR/ER Water Level Neck Level Reps/Duration 10x Comments cues for pain-free ROM and relax left shoulder down [place] Activities [place] Activities Bicycle Comments with breastroke UE's, alternating UE's, cues for pain-free ROM and relaxing left shoulder down VC for vertical alignment Swim Strokes Breastroke Laps/Duration 25 m Comments blue float Elementary Backstroke Equipment Ankle Floats,Neck Float Laps/Duration 15m Comments cues for pain-free ROM Manual Techniques Bad Ragaz passive for trunk and UE PROM, neck float and floats below knees. PT-OP-T Assessment and Plan Start: 08/08/21 17:25 Freq: Status: Active Protocol: Document 11/03/21 14:33 [facility] (Rec: 11/03/21 15:16 [facility] [id number]) Physical Therapy Assessment Goals Four Impairment left shoulder pain and dysfunction Impairment inability to lift left shoulder overhead, overactivation of left upper trap with postural asymmetry, unable to reach to side or behind back left UE Prison Goal (LTG) Decrease pain and muscle guarding, with patient able to demonstrate full functional use of his left UE. 09/23/21: See measurements taken:Decreased in AROM L shld seated, limited by pain and weakness: regressed 53 deg FF regressed 66 deg ABD regressed 2 deg ER regressed standing IR L shld PROM supine: FF 138 deg ABD 135 deg LTG Duration 01/05/22 Three Impairment weakness joellen shoulder and postural impairment Short Term Goal (STG) patient will be instructed in HEP consisting of therapeutic exercises for right shoulder strengthening, ROM, and postural correction STG Duration goal met Prison Goal (LTG) Patient will be independent with HEP and demonstrate improved right shoulder ROM to WFL and strength to at least 4+/5 all planes 10/05/21: good goal progress right shoulder, reporting feels at least 60% better, now having left shoulder pain. LTG Duration 01/05/22 Two Impairment decreased activity tolerance bilateral shoulders Impairment QuickDash disability index score right shoulder 48% Prison Goal (LTG) Decrease Quickdash score to no greater than 15% as measure of improved activity tolerance and improved functional use of right shoulder 09/15/21: good goal progress, mostly achieved 10/05/21: 47.7% left shoulder. 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 10/05/21: pt report L 3-4/10 when tires gets cramps in hands, R shld no pain. LTG Duration 01/05/22 Progress Towards Goals Progress Towards Goals Progressing Toward Goals Assessment Summary Assessment Patient has not yet seen orthopedist. Has poor body awareness, needs much cueing verbally, tactiley, and helpful to have mirror for visual feedback. Physical Therapy Plan Frequency and Duration Frequency of Treatment 2x/Week Duration of Treatment 8 weeks Plan of Care Start Date 10/05/21 Plan of Care End Date 01/05/22 Therapeutic Interventions Therapeutic Interventions Aquatic Therapy,Home Exercise Program,Lymphedema Management, Neuromuscular Re-education, Patient/Caregiver Education, Self-Care/Home Management,Soft Tissue Mobilization,Taping, Therapeutic Activities, Therapeutic Exercises Modalities Cold Pack/Ice Massage,Electric Stimulation,Hot Packs, Infrared Therapy,Iontophoresis ,Ultrasound Next Visit Focus/Plan Next Note Type Treatment Note Next Visit Plan Continue land and aquatic PT to assure safe and independent performance of HEP for strengthening and ROM left shoulder pending any further recommendations from orthopedist. Trial tubualar floatation vest next session for improvement in vertical exercises in deep water
--- NOTE | 2021-11-08 09:19 | PT.OTN ---
Current Diagnoses Pain in left shoulder (11/08/21) Pain in unspecified shoulder (11/08/21) Pain in right arm (11/08/21) Abnormal posture (11/08/21) Weakness (11/08/21) Physical Therapy Treatment Note PT-OP-A Visit Information Start: 08/08/21 17:25 Freq: Status: Active Protocol: Document 11/08/21 08:21 SP (Rec: 11/08/21 09:19 SP [id number]) Out-Patient Physical Therapy Visit Information Visit Information Visit Type Treatment Note Visit Start Time 08:21 Visit Stop Time 09:19 Total Visit Minutes 58 Visit Number 17 Number of DENTAL ASSOCIATE Visits 1 Evaluation Information Evaluation Date 10/26/21 PT-OP-B Current Condition Start: 08/08/21 17:25 Freq: Status: Active Protocol: Document 09/19/21 09:09 SAK (Rec: 09/19/21 10:06 SAK [id number]) Current Condition History of Current Condition Onset Date 2 months Current Complaints right scapula and shoulder pain History of Current Condition Reports persistent right sided scapula and shoulder pain. No precipitating event unless related to fall in March due to COPD; fractured right foot. Doesn't remember the fall. Taken to hospital, returned due to persistent foot pain and fracture discovered. Surgical repair then rehab for 1 month. Thinks right shoulder pain may have started in rehab. Using arms to compensate for ankle fracture, maybe using arms more than prior to injury. Difficulty reaching overhead or behind his back. Feels like a nerve being pinched. History bilateral TKA Prior Treatments and Tests no imaging takes Tylenol, no use of ice or heat. Future Testing and Treatments Planned returns to doctor after completes PT. PT-OP-C Subjective Start: 08/08/21 17:25 Freq: Status: Active Protocol: Document 11/08/21 08:21 SP (Rec: 11/08/21 09:19 SP [id number]) OP-PT Subjective Patient Comments Patient Comments Pt states L shld 2-310 unless tries to pick something up/ use arm in some manner that bothers it. Pt stated hasn't heard from Dr Suarez for ortho appt and pt is going out of country until end Dec. Pt reported good feedback tolerance to Estim and MHP end last tx. PT-OP-J Posture/Palpation/Skin Start: 08/08/21 17:25 Freq: Status: Active Protocol: Document 08/09/21 08:16 SAK (Rec: 08/10/21 15:47 SAK [id number]) Posture Evaluation Position Sitting Head/C-Spine Posture Forward Head T-Spine Posture Increased Kyphosis Shoulder Posture (L) Rounded,(R) Rounded Scapula Posture (L) Protracted,(R) Protracted Arm Posture (L) Internally Rotated,(R) Internally Rotated PT-OP-K Range of Motion Start: 08/08/21 17:25 Freq: Status: Active Protocol: Document 10/18/21 08:17 SP (Rec: 10/18/21 09:06 SP [id number]) Shoulder Goniometric Range of Motion Shoulder Left Shoulder ROM WFL No Testing Position Sitting Flexion 90 Abduction 74 External Rotation at 0 degrees Abduction 50 Comments Supine PROM: FF- PROM 128*, AROM 124* ABD-PROM 107*, AROM 101* ER (45* ABD)- AROM 62* Seated AROM: FF- Improved 3deg ABD- 74* no change ROM ER- improved by 7 deg PT-OP-L Special Tests Start: 08/08/21 17:25 Freq: Status: Active Protocol: Document 08/09/21 08:16 SAK (Rec: 08/10/21 15:47 [facility] [id number]) Special Tests Shoulder Special Tests Reese Mario Impingement Test Results positive joellen right greater than left Elevation Impingement Test Results positive joellen right greater than left Drop Arm Rotator Cuff Test Results negative PT-OP-M Strength Start: 08/08/21 17:25 Freq: Status: Active Protocol: Document 08/09/21 08:16 SAK (Rec: 08/10/21 15:47 [facility] [id number]) Scapula Strength Scapula Manual Muscle Testing Right Elevation (C4) 4- Good- Adduction 4- Good- Abduction 4- Good- Depression 4- Good- Left Elevation (C4) 4 Good Adduction 4 Good Abduction 4 Good Depression 4 Good Shoulder Strength Shoulder Manual Muscle Testing Right Flexion 4- Good- Extension 4- Good- Abduction (C5) 3+ Fair+ External Rotation 4- Good- Internal Rotation 4- Good- Left Flexion 4 Good Extension 4 Good Adduction 4+ Good+ External Rotation 4- Good- Internal Rotation 4 Good Elbow/Forearm Strength Elbow and Forearm Manual Muscle Testing joellen Flexion (C6) 4 Good Extension (C7) 4 Good PT-OP-Q Treatments Start: 08/08/21 17:25 Freq: Status: Active Protocol: Document 11/08/21 08:21 SP (Rec: 11/08/21 09:19 SP [id number]) Cardio Equipment Recumbent Stepper (Sci-Fit) Duration (Minutes) 10 Resistance 2.0 Seat Position 11 Other UE's/LE's, cues for emphasis on pull back, decreased UT activati, RPM 72-74 Gym Equipment Cable Column (Body Solid) lat pull Details verbal and manual cues for scapular movement, lower trap activation Resistance 20 Reps/Time 10x, reported discomfort ( limited range FF) row Details verbal and manual cues for UT inhib and lower trap activation Resistance 20 Reps/Time 10x2 Therapeutic Exercises Supine Exercises hor ab Equipment Used L1 TB Reps/Minutes 10x serratus punch Equipment Used wand Reps/Minutes 10x Sitting Exercises Rows Sitting Exercise Name reviewed in sitting ( assimulate cable in PT) Side bilateral Resistance TB #2>#3 Reps/Minutes 2x10 Comments cued no UT recruit on L. pull downs Sitting Exercise Name rear facing pull downs- reviewed HEP-assimulate cable lat pulldown for home Side bilateral Resistance TB #2 Equipment Used almost no pain reported Reps/Minutes 2x10 Comments cued no UT recruitment posterior capsule stretch Side left Reps/Minutes 2x 10 sec Comments reported increased pain with 2 trials repositioning, so discontinued Standing Exercises shoulder ER Standing Exercise Name ER HEP review Side left Resistance L2 TB Equipment Used towel under arm Reps/Minutes 10x2 Comments cued 90deg elbow throughout range- Manual Therapy Treatment Soft Tissue Mobilization long head of biceps Mobilization Type Manual Lymphatic Drainage, Strumming Body Position Hooklying Comments reported pain with contact so discontinued UT Body Location L Mobilization Type Myofascial Release,Strumming Intensity/Depth Moderate Body Position Hooklying Comments reported pain with contact so discontinued subscap Body Location trigger points Mobilization Type Sustained Pressure,Trigger Point Release Body Position Hooklying Comments discomfort to discontinued even light pressure. Joint Mobilizations L GH Jt Joint inferior/ posterior glide Grade II Body Position Hooklying Comments dec pain when posterior and inf glide done Self-Care/Home Management Treatment Education Other Education DENTAL ASSOCIATE suggested calling ortho to see if received referral L shld assessment. Issued home TBs per pt request needed another, suggested bring with him when out of town to continue strengthening, ENOC. PT-OP-R Modalities Start: 08/08/21 17:25 Freq: Status: Active Protocol: Document 11/08/21 08:21 SP (Rec: 11/08/21 09:19 SP [id number]) Electric Stimulation Electric Stimulation left shoulder Duration (Minutes) 15 Intensity 13 Target/Sweep Sweep Patient Position Supine Combined With Heat/Cold Hot Pack Comments IFC 4 pads: UT, distal infraspinatus, distal detoid, prox bicep. PT-OP-S Aquatic Treatment Start: 08/08/21 17:25 Freq: Status: Active Protocol: Document 11/02/21 14:53 LJ (Rec: 11/02/21 15:13 LJ [id number]) Aquatics Treatment Pool Entry/Exit Pool Entry/Exit Method Stairs Assistance Contact Guard Assistance, Verbal Cues Water Walking forward Water Level Chest Level Level of Assistance Verbal Cues Comments used BBs 1 lap for improved muscle activation sidestepping with shoulder ab/ad Water Level Chest Level Level of Assistance Verbal Cues Comments cues to relax left shoulder down bckwd with reverse breastroke UE's Water Level Chest Level Level of Assistance Verbal Cues Comments cues to relax left shoulder down fwd with breastroke UE's Water Level Chest Level Level of Assistance Verbal Cues Comments cues to relax left shoulder down Upper Extremity Exercises lateral push Details with forearm pron and supination Body Position Sitting Water Level Neck Level Reps/Duration 10x Comments cues for pain-free ROM and relax left shoulder down shoulder flex/ext Body Position Sitting Water Level Neck Level Reps/Duration 10x Comments cues for pain-free ROM and relax left shoulder down shoulder circles Body Position Standing Water Level Neck Level Reps/Duration 10 x CW and CCW Comments cues for pain-free ROM and relax left shoulder down shoulder IR/ER Water Level Neck Level Reps/Duration 10x Comments cues for pain-free ROM and relax left shoulder down Zwolle Activities Zwolle Activities Bicycle Comments with breastroke UE's, alternating UE's, cues for pain-free ROM and relaxing left shoulder down VC for vertical alignment Swim Strokes Breastroke Laps/Duration 25 m Comments blue float Elementary Backstroke Equipment Ankle Floats,Neck Float Laps/Duration 15m Comments cues for pain-free ROM Manual Techniques Bad Ragaz passive for trunk and UE PROM, neck float and floats below knees. PT-OP-T Assessment and Plan Start: 08/08/21 17:25 Freq: Status: Active Protocol: Document 11/08/21 08:21 SP (Rec: 11/08/21 09:19 SP [id number]) Physical Therapy Assessment Goals Four Impairment left shoulder pain and dysfunction Impairment inability to lift left shoulder overhead, overactivation of left upper trap with postural asymmetry, unable to reach to side or behind back left UE Long-Term Goal (LTG) Decrease pain and muscle guarding, with patient able to demonstrate full functional use of his left UE. 09/23/21: See measurements taken:Decreased in AROM L shld seated, limited by pain and weakness: regressed 53 deg FF regressed 66 deg ABD regressed 2 deg ER regressed standing IR L shld PROM supine: FF 138 deg ABD 135 deg LTG Duration 01/05/22 Three Impairment weakness joellen shoulder and postural impairment Short Term Goal (STG) patient will be instructed in HEP consisting of therapeutic exercises for right shoulder strengthening, ROM, and postural correction STG Duration goal met Long-Term Goal (LTG) Patient will be independent with HEP and demonstrate improved right shoulder ROM to WFL and strength to at least 4+/5 all planes 10/05/21: good goal progress right shoulder, reporting feels at least 60% better, now having left shoulder pain. LTG Duration 01/05/22 Two Impairment decreased activity tolerance bilateral shoulders Impairment QuickDash disability index score right shoulder 48% Steam Conditioner Filling Goal (LTG) Decrease Quickdash score to no greater than 15% as measure of improved activity tolerance and improved functional use of right shoulder 09/15/21: good goal progress, mostly achieved 10/05/21: 47.7% left shoulder. Achieved for right shoulder LTG Duration 01/05/22 One Impairment pain joellen shoulders as high as 8/10 Steam Conditioner Filling Goal (LTG) Decrease pain to no greater than 2/10 with all usual activities including photography and his other art activities 09/15/21: good goal progress, mostly achieved. 10/05/21: pt report L 3-4/10 when tires gets cramps in hands, R shld no pain. LTG Duration 01/05/22 Assessment Summary Assessment Pt responded low discomfort during seated resisted rows, eccentric OH Flexion, supine HABD and AROM serratus punch. Decreased tolerance to light manual STMs so discontinued, better response to light, small range GH posterior, inferior glides and modalities . He continues to be limited in range away from body. Suggested follow up phone call to Dr Suarez office if received referral and possible schedule appt this week or when returns from being out of town. Pt will have reassessment with PT when returns to update POC, expires 01/05. Physical Therapy Plan Frequency and Duration Frequency of Treatment 2x/Week Duration of Treatment 8 weeks Plan of Care Start Date 10/05/21 Plan of Care End Date 01/05/22 Therapeutic Interventions Therapeutic Interventions Aquatic Therapy,Home Exercise Program,Lymphedema Management, Neuromuscular Re-education, Patient/Caregiver Education, Self-Care/Home Management,Soft Tissue Mobilization,Taping, Therapeutic Activities, Therapeutic Exercises Modalities Cold Pack/Ice Massage,Electric Stimulation,Hot Packs, Infrared Therapy,Iontophoresis ,Ultrasound Next Visit Focus/Plan Next Note Type Treatment Note Next Visit Plan Check if appt with ortho. POC: Continue land and aquatic PT to assure safe and independent performance of HEP for strengthening and ROM left shoulder pending any further recommendations from orthopedist. Trial tubualar floatation vest next session for improvement in vertical exercises in deep water
--- NOTE | 2022-01-11 10:40 | PT-OP ANOTE ---
cancelled due to insurance issues
--- NOTE | 2022-02-15 10:20 | PT.OPDS ---
Current Diagnoses Pain in left shoulder (11/08/21) Pain in unspecified shoulder (11/08/21) Pain in right arm (11/08/21) Abnormal posture (11/08/21) Weakness (11/08/21) Visit Care Team Role Provider Type Blas Vargas MD Attending Provider Physician Family Provider Primary Care Provider Referring Provider Specialty: Internal Medicine Address: [address] [place] [address], [address], [facility] Email: [email or web address] Visit Number Visit Number 17 Discharge Summary PT-OP-B Current Condition Start: 08/08/21 17:25 Freq: Status: Active Protocol: Document 09/19/21 09:09 SAK (Rec: 09/19/21 10:06 SAK [id number]) Current Condition History of Current Condition Onset Date 2 months Current Complaints right scapula and shoulder pain History of Current Condition Reports persistent right sided scapula and shoulder pain. No precipitating event unless related to fall in March due to COPD; fractured right foot. Doesn't remember the fall. Taken to hospital, returned due to persistent foot pain and fracture discovered. Surgical repair then rehab for 1 month. Thinks right shoulder pain may have started in rehab. Using arms to compensate for ankle fracture, maybe using arms more than prior to injury. Difficulty reaching overhead or behind his back. Feels like a nerve being pinched. History bilateral TKA Prior Treatments and Tests no imaging takes Tylenol, no use of ice or heat. Future Testing and Treatments Planned returns to doctor after completes PT. PT-OP-C Subjective Start: 08/08/21 17:25 Freq: Status: Active Protocol: Document 11/08/21 08:21 SP (Rec: 11/08/21 09:19 SP [id number]) OP-PT Subjective Patient Comments Patient Comments Pt states L shld 2-3 unless tries to pick something up/ use arm in some manner that bothers it. Pt stated hasn't heard from Dr Suarez for ortho appt and pt is going out of [place] until end Dec. Pt reported good feedback tolerance to Estim and MHP end last tx. PT-OP-J Posture/Palpation/Skin Start: 08/08/21 17:25 Freq: Status: Active Protocol: Document 08/09/21 08:16 [facility] (Rec: 08/10/21 15:47 [facility] [id number]) Posture Evaluation Position Sitting Head/C-Spine Posture Forward Head T-Spine Posture Increased Kyphosis Shoulder Posture (L) Rounded,(R) Rounded Scapula Posture (L) Protracted,(R) Protracted Arm Posture (L) Internally Rotated,(R) Internally Rotated PT-OP-K Range of Motion Start: 08/08/21 17:25 Freq: Status: Active Protocol: Document 10/18/21 08:17 SP (Rec: 10/18/21 09:06 SP [id number]) Shoulder Goniometric Range of Motion Shoulder Left Shoulder ROM WFL No Testing Position Sitting Flexion 90 Abduction 74 External Rotation at 0 degrees Abduction 50 Comments Supine PROM: FF- PROM 128*, AROM 124* ABD-PROM 107*, AROM 101* ER (45* ABD)- AROM 62* Seated AROM: FF- Improved 3deg ABD- 74* no change ROM ER- improved by 7 deg PT-OP-L Special Tests Start: 08/08/21 17:25 Freq: Status: Active Protocol: Document 08/09/21 08:16 [facility] (Rec: 08/10/21 15:47 [facility] [id number]) Special Tests Shoulder Special Tests Reese Mario Impingement Test Results positive joellen right greater than left Elevation Impingement Test Results positive joellen right greater than left Drop Arm Rotator Cuff Test Results negative PT-OP-M Strength Start: 08/08/21 17:25 Freq: Status: Active Protocol: Document 08/09/21 08:16 [facility] (Rec: 08/10/21 15:47 [facility] [id number]) Scapula Strength Scapula Manual Muscle Testing Right Elevation (C4) 4- Good- Adduction 4- Good- Abduction 4- Good- Depression 4- Good- Left Elevation (C4) 4 Good Adduction 4 Good Abduction 4 Good Depression 4 Good Shoulder Strength Shoulder Manual Muscle Testing Right Flexion 4- Good- Extension 4- Good- Abduction (C5) 3+ Fair+ External Rotation 4- Good- Internal Rotation 4- Good- Left Flexion 4 Good Extension 4 Good Adduction 4+ Good+ External Rotation 4- Good- Internal Rotation 4 Good Elbow/Forearm Strength Elbow and Forearm Manual Muscle Testing joellen Flexion (C6) 4 Good Extension (C7) 4 Good PT-OP-T Assessment and Plan Start: 08/08/21 17:25 Freq: Status: Active Protocol: Document 02/15/22 10:07 [facility] (Rec: 02/15/22 10:20 [facility] [id number]) Physical Therapy Plan Discharge Physical Therapy Discharge Comments insurance issues
== END 2022-02-16 11:26 | disposition home or self-care (01) ==
LOC: PHYS 08:15
PROVIDERS: Family Provider Internal Medicine; PCP Internal Medicine; Referring Provider Internal Medicine; Visit Provider Internal Medicine
DX: M79.601 Pain in right arm (principal); M25.519 Pain in unspecified shoulder; R29.3 Abnormal posture; R53.1 Weakness; M25.512 Pain in left shoulder
CPT/HCPCS: 97014; 97035; 97110; 97113; 97140; 97162; 97535; G0283

== ENCOUNTER → 2022-04-07 08:12 | Outpatient (CLI) | payer SELFPAY ==
[2021-06-17 16:15] VITALS: PULSE 68; RESP 17; RESP 7; O2SAT 92; BMI 40.7
[2022-04-07 09:12] LABS: Alanine Aminotransferase 19 IU/L (<50); Albumin 3.5 g/dL (3.5-5.0); Albumin Globulin Ratio 1.1 (1.0-2.8); Alkaline Phosphatase 93 U/L (38-126); Aspartate Aminotransferase 20 IU/L (17-59); BUN Creatinine Ratio 20.3 (6-22); Bilirubin Total 0.4 mg/dL (0.2-1.3); Blood Urea Nitrogen 16 mg/dL (9-20); Calcium 8.9 mg/dL (8.4-10.2); Carbon Dioxide 34 mmol/L (22-32); Chloride 94 mmol/L (98-107); Cholesterol 189 mg/dL (140-199); Estimated Glomerular Filt Rate > 60 mL/min (>60); Globulin 3.3 g/dL (1.7-4.1); Glucose 80 mg/dL (80-110); HDL Cholesterol 62 mg/dL (40-60); HEMOLYSIS < 15 (0-50); LDL Cholesterol Calculated 105 mg/dL (<100); Potassium 4.4 mmol/L (3.4-5.1); Sodium 135 mmol/L (137-145); Total Protein 6.8 g/dL (6.3-8.2); Triglycerides 112 mg/dL (35-150)
[2022-04-07 09:25] LABS: Free T4, Direct Thyroxine 0.89 ng/dL (0.78-2.19)
[2022-04-07 09:39] LABS: Thyroid Stimulating Hormone 4.72 uIU/mL (0.47-4.68)
== END ==
PROVIDERS: Family Provider Internal Medicine; PCP Internal Medicine; Referring Provider Internal Medicine; Visit Provider Internal Medicine
DX: E03.9 Hypothyroidism, unspecified (principal); I10 Essential (primary) hypertension; J44.9 Chronic obstructive pulmonary disease, unspecified
CPT/HCPCS: 36415; 80053; 80061; 84439; 84443

== ENCOUNTER → 2022-09-05 14:41 | Outpatient (CLI) | payer SELFPAY ==
[2021-06-17 16:15] VITALS: PULSE 68; RESP 17; RESP 7; O2SAT 92; BMI 40.7
[2022-09-05 15:51] LABS: Prostate Specific Antigen < 0.064 ng/mL (0.10-4.00)
== END ==
PROVIDERS: Family Provider Internal Medicine; PCP Internal Medicine; Referring Provider Physician Assistant Medical; Visit Provider Physician Assistant Medical
DX: Z85.46 Personal history of malignant neoplasm of prostate (principal)
CPT/HCPCS: 36415; 84153

== ENCOUNTER → 2023-02-16 09:48 | Outpatient (CLI) | payer SELFPAY ==
[2021-06-17 16:15] VITALS: PULSE 68; RESP 17; RESP 7; O2SAT 92; BMI 40.7
[2023-02-16 12:29] LABS: Alanine Aminotransferase 16 IU/L (<50); Albumin 3.7 g/dL (3.5-5.0); Albumin Globulin Ratio 1.1 (1.0-2.8); Alkaline Phosphatase 94 U/L (38-126); Aspartate Aminotransferase 20 IU/L (17-59); BUN Creatinine Ratio 28.7 (6-22); Bilirubin Total 0.5 mg/dL (0.2-1.3); Blood Urea Nitrogen 27 mg/dL (9-20); Calcium 9.6 mg/dL (8.4-10.2); Carbon Dioxide 34 mmol/L (22-32); Chloride 101 mmol/L (98-107); Estimated Glomerular Filt Rate > 60 mL/min (>60); Globulin 3.3 g/dL (1.7-4.1); Glucose 94 mg/dL (80-110); HEMOLYSIS < 15 (0-50); Potassium 5.3 mmol/L (3.4-5.1); Sodium 138 mmol/L (137-145)
[2023-02-16 12:48] LABS: Free T4, Direct Thyroxine 1.39 ng/dL (0.78-2.19)
[2023-02-16 13:02] LABS: Thyroid Stimulating Hormone 0.521 uIU/mL (0.47-4.68)
== END ==
PROVIDERS: Family Provider Internal Medicine; PCP Internal Medicine; Referring Provider Internal Medicine; Visit Provider Internal Medicine
DX: E03.9 Hypothyroidism, unspecified (principal); I10 Essential (primary) hypertension; J44.9 Chronic obstructive pulmonary disease, unspecified
CPT/HCPCS: 36415; 80053; 84439; 84443

== ENCOUNTER 2023-06-12 15:41 | Inpatient (IN) | payer MEDICARE, OTHER, SELFPAY ==
[2021-06-17 16:15] VITALS: PULSE 68; RESP 17; RESP 7; O2SAT 92; BMI 40.7
[2023-06-12] VITALS (13 sets, daily range): BP systolic 124–156; BP diastolic 64–97; PULSE 80–100; RESP 16–28; TEMP 36.2–36.8; O2SAT 74–95; BMI 46.5
--- NOTE | 2023-06-12 15:54 | DI.RAD.S_ITS ---
PROCEDURE: XR CHEST 1V INDICATIONS: Shortness of breath TECHNIQUE: One view of the chest was acquired. COMPARISON: [facility], CR, XR CHEST 1V, 03/30/2021, 5:16. FINDINGS: Surgical changes and devices: Stable spine fixation hardware. Lungs and pleura: Central pulmonary vascular congestion. Patchy bibasilar opacities. No pleural effusions or pneumothorax. Mediastinum: Mediastinal contours appear normal. Heart is enlarged Bones and chest wall: No suspicious bony lesions. Overlying soft tissues appear unremarkable. IMPRESSION: Cardiomegaly with central pulmonary vascular congestion concerning for CHF/fluid overload. Bibasilar atelectasis or pneumonia. Dictated by: Aparna Wallace MD, PhD on 06/12/2023 at 16:51 Approved by: Aparna Wallace MD, PhD on 06/12/2023 at 16:52
--- NOTE | 2023-06-12 16:15 | ED.GENADULT ---
HPI - General Adult General Chief complaint: Shortness of Breath/Dyspnea Stated complaint: COPD, short of breath, sent by Dr Vargas Time Seen by Provider: 06/12/23 16:12 Source: patient Mode of arrival: Wheelchair History of Present Illness HPI narrative: 72-year-old male with history of hypertension, COPD, aortic valve insufficiency, prostate cancer presents with shortness of breath, sent in by outpatient team. Patient states that he has felt short of breath for at least 1 week, gradually progressive, with associated productive cough, unclear sputum color. He denies chest pain. Denies back or flank or abdominal pain. He has some trouble describing his full history. Denies nausea or vomiting or diarrhea, urinary symptoms, focal leg swelling, lightheadedness or syncope. He states he is not on oxygen but felt like he needed it so was trying to buy some recently. He is currently on 5 L nasal cannula, arriving satting mid 70s on room air. He has some orthopnea. Per chart review from outpatient office for note, patient has been sick with 1 week of cough and shortness of breath. He would external beam radiation for his prostate cancer. He is history of intubation for hypercapnia and does not have home oxygen per note. There was concern he needed hospitalization. This patient was seen in a time of substantial ER overcrowding in the setting of understaffing. She was seen as quickly as possible by myself in the setting of multiple critically ill patients. Related Data Home Medications Medication Instructions Recorded Confirmed cyanocobalamin (vitamin B-12) 1,000 mcg PO QDAY ##0 04/04/17 06/12/23 1,000 mcg tablet,extended release diphenhydramine HCl 25 mg capsule 25 mg PO Q4-6H PRN Itching 09/14/17 06/12/23 (Allergy (diphenhydramine)) Previous Rx's Medication Instructions Recorded duloxetine 30 mg capsule,delayed 30 mg PO DAILY #90 caps 05/31/20 release triamcinolone acetonide 0.1 % 1 applic topical TID #80 grams 03/21/21 topical cream acetaminophen 325 mg tablet 650 mg (2 x 325 mg) PO TID PRN 03/31/21 Pain, Mild #60 tabs ibuprofen 400 mg tablet 400 mg PO Q4HR PRN pain, mild #60 03/31/21 tabs omeprazole 40 mg capsule,delayed 40 mg PO BID #60 caps 11/10/21 release Disabled Parking #1 ea 06/08/22 albuterol sulfate 90 mcg/actuation 2 puff inhalation Q4HP PRN 12/08/22 aerosol inhaler (Proventil HFA) shortness of breath or wheezing #6 ea ipratropium 20 mcg-albuterol 100 1 puff inhalation BID #24 grams 12/08/22 mcg/actuation mist for inhalation (Combivent Respimat) levothyroxine 150 mcg tablet 150 mcg PO DAILY #180 tabs 12/08/22 potassium chloride 20 mEq 20 meq PO DAILY #180 tabs 12/08/22 tablet,extended release(part/cryst) (Klor-Con M) tamsulosin 0.4 mg capsule (Flomax) 0.4 mg PO DAILY #180 caps 12/08/22 chlorthalidone 25 mg tablet 50 mg (2 x 25 mg) PO QDAY #180 tabs 02/09/23 lorazepam 0.5 mg tablet 0.5 mg PO BEDTIME PRN sleep #60 05/24/23 tabs Allergies Allergy/AdvReac Type Severity Reaction Status Date / Time crab [CRAB] Allergy Severe Throat Verified 06/12/23 15:12 swelling animal dander [ANIMAL DANDER] Allergy Mild Sinus Verified 06/12/23 15:12 congestion, itching, eczema pollen extracts Allergy Unknown Sinus Verified 06/12/23 15:12 [POLLEN EXTRACTS] congestion, itching, eczema Review of Systems Review of Systems Narrative: Constitutional: no fever, no chills Eyes: no visual disturbance, no discharge Ears, Nose, Mouth, Throat: no rhinorrhea, no sore throat Cardiovascular: no chest pain, no palpitations Respiratory: + cough, shortness of breath Gastrointestinal: no abdominal pain, no vomiting, no diarrhea Genitourinary: no dysuria, no hematuria Musculoskeletal: no back pain, no neck stiffness Skin: no rash, no wound Neurological: no focal weakness, no focal numbness Patient History Medical History Acute hypercapnic respiratory failure Asthma Elevated d-dimer (~02/2020) Cellulitis (~02/2020) Unilateral primary osteoarthritis, right knee Olecranon bursitis of left elbow Former smoker Osteoarthritis Duodenal ulcer Gastric ulcer Essential hypertension Leukocytosis (01/19/11) Thrombocytosis (01/19/11) Obesity (01/19/11) Prostate cancer (2010) Eczema CTS (carpal tunnel syndrome) Weakness of right lower extremity (11/15/16) Low back pain of over 3 months duration (11/15/16) Acquired insufficiency of aortic valve (10/08/15) Hypothyroidism (08/21/14) Idiopathic peripheral neuropathy Cobalamin deficiency History of malignant neoplasm of prostate Chronic obstructive pulmonary disease (01/19/11) Surgical History History of arthroplasty of right knee (05/24/20) Status post cataract extraction of both eyes with insertion of intraocular lens Status post wrist surgery (2011) History of spinal fusion (2012) History of splenectomy (1975) Family History Brother Thyroid cancer Mother Breast cancer Father No problems noted. 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: [employer] travel history: recent leisure activities: art, volunteer work and other Smoking Status: Former smoker Tobacco: How many years used: 15 Smokeless tobacco user: other quit status: quit date established second hand exposure: No alcohol intake: former substance use type: does not use Smoking Status: Former smoker alcohol intake frequency: holidays/special occasions only Substance Use Type: does not use Exam Narrative Exam Narrative: Const: On 5 L, mildly dyspneic appearing, non toxic appearing; calm, pleasant, able to speak in moderate sentences Eyes: PERRLA, EOMI ENT: mucous membranes moist Neck: supple, non-tender Resp: Tachypnea mid 20s, moderate aeration with bilateral expiratory wheezing Card: regular rate and rhythm, no murmurs Abd: non tender diffusely, no rigidity or rebound or guarding Back: no T or L spine tenderness, no CVA tenderness bilaterally Extrem: no deformities, 2+ distal pulses with 1+ pitting edema bilateral lower extremities Neuro: 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, 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, grossly intact sensation and strength all extremities Skin: no rash, warm and dry Initial Vital Signs Initial Vital Signs: Vital Signs Temperature 98.2 F 06/12/23 15:48 Pulse Rate 80 06/12/23 15:48 Respiratory Rate 28 H 06/12/23 15:48 Blood Pressure 130/81 06/12/23 15:48 Pulse Oximetry 74 L 06/12/23 15:48 Oxygen Delivery Method Room Air 06/12/23 15:48 Course Course Course Narrative: This presentation is most concerning for COPD exacerbation, though I have considered broad differential including but not limited to CHF exacerbation, pneumonia, pneumothorax, viral syndrome, symptomatic anemia, metabolic acidosis, myocarditis, among others. Patient appears to be stabilizing on high-dose nasal cannula. I am obtaining broad workup with EKG, labs, chest x-ray, viral swab, blood cultures. I am giving nebs, steroids, broad antibiotics with the potential for pneumonia and will closely reassess. EKG NSR without acute ischemia or immediately concerning interval prolongation on my review. VBG with respiratory acidosis with what appears to be substantial chronic metabolic compensatory alkalosis. CBC with neutrophilic leukocytosis, anemia improved from prior, thrombocytosis similar to prior. INR within normal limits. Viral swab negative. D-dimer is within age adjusted limits, arguing against PE. Radiology review of imaging below, which I agree with on my independent review: CXR: FINDINGS: Surgical changes and devices: Stable spine fixation hardware. Lungs and pleura: Central pulmonary vascular congestion. Patchy bibasilar opacities. No pleural effusions or pneumothorax. Mediastinum: Mediastinal contours appear normal. Heart is enlarged Bones and chest wall: No suspicious bony lesions. Overlying soft tissues appear unremarkable. IMPRESSION: Cardiomegaly with central pulmonary vascular congestion concerning for CHF/fluid overload. Bibasilar atelectasis or pneumonia. Dictated by: Aparna Wallace MD, PhD on 06/12/2023 at 16:51 Troponin reassuring. At this juncture, I suspect multifactorial cause for shortness breath, with COPD exacerbation, CHF exacerbation, pneumonia possible. He is receiving treatment for all of these. Consulting hospitalist to discuss admission. I spoke with Dr. Vargas who kindly accepted for admission. Patient being admitted in stable condition. CRITICAL CARE: I spent 55 minutes assessing, resuscitating, reassessing this patient, interpreting studies, speaking with family consultants, outside of procedures, in the setting of hypoxic and hypercapneic respiratory failure. Orders Ordered: ED Orders 06/12/23 15:10 EKG-12 Lead Stat 06/12/23 15:54 XR chest 1V Stat RT Consult Eval and Treat NOW 06/12/23 15:55 Covid-19 + FLU A/B + RSV - PCR Stat 06/12/23 16:14 Complete Blood Count AUTO DIFF Stat Comprehensive Metabolic Panel Stat D Dimer Stat Lactate (Lactic Acid) Stat NT-proBNP (BNP-Adult 18+) Stat Prothrombin Time INR Stat Troponin I Stat 06/12/23 16:40 Blood Culture Stat 06/12/23 16:47 VBG [Venous Blood Gas] Stat 06/12/23 16:50 Covid-19 + FLU A/B + RSV - PCR Stat 06/12/23 18:17 Consult to Cardio/Pulmonary Rehabilitation Routine Consult to Discharge Planning Routine RT Consult Eval and Treat Now 06/13/23 06:00 EC echo doppler complete Urgent Acetaminophen (Acetaminophen 325 Mg Tablet) 650 mg PO Q6H PRN PRN Reason: Fever/Mild Pain (1-3) Albuterol (Albuterol 2.5 Mg/3 Ml Neb (Adult)) 2.5 mg INH [id number] PRN PRN Reason: Dyspnea Aspirin (Aspirin Ec 325 Mg Tablet) 325 mg PO DAILY [facility] Duloxetine HCl (Duloxetine 30 Mg Capsule) 30 mg PO DAILY [facility] Enoxaparin Sodium (Enoxaparin 40 Mg/0.4 Ml Syringe) 40 mg SUBCUT DAILY [facility] Furosemide (Furosemide 40 Mg/4 Ml Vial) 40 mg IV DAILY [facility] Azithromycin 500 mg/ Dextrose 250 mls @ 250 mls/hr IV Q24H [facility] Ceftriaxone Sodium 2,000 mg/ (Sodium Chloride) 100 mls @ 200 mls/hr IV Q24H [facility] Ipratropium Rice (Ipratropium 0.5 Mg/2.5 Ml Neb) 0.5 mg INH RTQ4HR MANAN Levothyroxine Sodium (Levothyroxine 75 Mcg Tablet) 150 mcg PO 0600 [facility] Methylprednisolone (Methylprednisolone 125 Mg/2 Ml Vial) 80 mg IV Q6HR MANAN Last Admin: 06/12/23 18:33 Dose: 80 mg Documented By: CLP Naloxone HCl (Naloxone 0.4 Mg/Ml Vial) 0.2 mg IV Q2MIN PRN PRN Reason: Opiate Reversal Oxycodone HCl (Oxycodone Ir 5 Mg Tablet) 5 mg PO Q3H PRN PRN Reason: Pain, Moderate (4-6) Pantoprazole Sodium (Pantoprazole Dr 40 Mg Tablet) 40 mg PO BID MANAN Tamsulosin HCl (Tamsulosin 0.4 Mg Capsule) 0.4 mg PO DAILY MANAN Discontinued Medications Albuterol/Ipratropium (Albuterol/Ipratropium 3 Ml Ampul) 3 ml INH Q1H PRN PRN Reason: Shortness Of Breath Doxycycline Hyclate (Doxycycline Hyclate 100 Mg Tablet) 100 mg PO NOW ONE Stop: 06/12/23 16:19 Last Admin: 06/12/23 16:39 Dose: 100 mg Documented By: TAISHA Ceftriaxone Sodium 1,000 mg/ (Sodium Chloride) 100 mls @ 200 mls/hr IV NOW ONE Stop: 06/12/23 16:19 Last Infusion: 06/12/23 17:10 Dose: Infused Documented By: Admin: 06/12/23 16:32 Dose: 200 mls/hr Documented By: TAISHA Methylprednisolone (Methylprednisolone 125 Mg/2 Ml Vial) 125 mg IV NOW ONE Stop: 06/12/23 16:19 Last Admin: 06/12/23 16:26 Dose: 125 mg Documented By: TAISHA Vital Signs Vital signs: Vital Signs - 8 hr 06/12/23 15:48 06/12/23 15:50 06/12/23 15:59 Temperature 98.2 F Pulse Rate 80 83 92 H Respiratory Rate 28 H 28 H 24 Blood Pressure 130/81 135/78 Pulse Oximetry 74 L 89 L 92 Oxygen Delivery Method Room Air Nasal Cannula Nasal Cannula Oxygen Flow Rate 4 6 06/12/23 16:07 06/12/23 16:08 06/12/23 16:08 Temperature Pulse Rate 100 H 88 Respiratory Rate Blood Pressure 143/84 H Pulse Oximetry 90 L Oxygen Delivery Method Oxygen Flow Rate 06/12/23 16:30 06/12/23 16:30 Temperature Pulse Rate 92 H Respiratory Rate Blood Pressure 140/77 Pulse Oximetry 95 Oxygen Delivery Method Nasal Cannula Oxygen Flow Rate 3 Medical Decision Making Lab Data 06/12/23 16:14 06/12/23 16:14 Labs: Lab Results 06/12/23 06/12/23 06/12/23 Range/Units 15:55 16:14 16:47 WBC 15.1 H (4.5-11.0) X10^3/uL RBC 4.30 L (4.5-5.9) X10^6/uL Hgb 12.6 L (13.5-17.5) g/dL Hct 40.0 L (41-53) % MCV 93.1 (80-100) fL MCH 29.4 (26-34) PG MCHC 31.6 (30-36) % RDW 15.2 H (11.6-14.8) % Plt Count 470 H (150-400) X10^3/uL Neut % (Auto) 68.0 (50-75) % Lymph % (Auto) 16.5 L (25-40) % [place] % (Auto) 11.2 (3-14) % Eos % (Auto) 3.6 (2-4) % Baso % (Auto) 0.7 (0-2) % Neut # (Auto) 95349 H (1669-3694) /uL Lymph # (Auto) 2500 (2960-1675) /uL [place] # (Auto) 1700 H (0-900) /uL Eos # (Auto) 500 H (0-450) /uL Baso # (Auto) 100 (0-100) /uL PT 11.6 (9.4-12.5) SECONDS INR 1.0 (0.9-1.3) D-Dimer 556 H (<500) ng/ml VBG pH 7.32 L (7.33-7.43) VBG pCO2 71.1 H (45-50) mmHg VBG pO2 66 H (35-45) mmHg VBG HCO3 37 H (24-28) mmol/L VBG Total CO2 39 H (24-29) mmol/L VBG O2 Saturation 90 H (70-75) % VBG Base Excess 10.0 H (0-4) mmol/L FiO2 0.40 Sodium 140 (137-145) mmol/L Potassium 4.5 (3.4-5.1) mmol/L Chloride 104 (98-107) mmol/L Carbon Dioxide 36 H (22-32) mmol/L BUN 23 H (9-20) mg/dL Creatinine 0.75 (0.66-1.25) mg/dL Estimated GFR > 60 (>60) mL/min BUN/Creatinine Ratio 30.7 H (6-22) Glucose 92 (80-110) mg/dL Lactate 0.8 (0.7-2.1) mmol/L Calcium 8.7 (8.4-10.2) mg/dL Total Bilirubin 0.4 (0.2-1.3) mg/dL AST 40 (17-59) IU/L ALT 21 (<50) IU/L Alkaline Phosphatase 73 (38-126) U/L Troponin I < 0.012 (0.01-0.034) ng/mL NT-Pro-B Natriuret Pep 1790 H (<125) pg/mL Total Protein 7.2 (6.3-8.2) g/dL Albumin 3.7 (3.5-5.0) g/dL Globulin 3.5 (1.7-4.1) g/dL Albumin/Globulin Ratio 1.1 (1.0-2.8) SARS-CoV-2 (PCR) Negative (Negative) Influenza A (RT-PCR) Flu a negative (NEGATIVE) Influenza B (RT-PCR) Flu b negative (NEGATIVE) RSV (PCR) Negative (Negative) 06/12/23 Range/Units 16:50 WBC (4.5-11.0) X10^3/uL RBC (4.5-5.9) X10^6/uL Hgb (13.5-17.5) g/dL Hct (41-53) % MCV (80-100) fL MCH (26-34) PG MCHC (30-36) % RDW (11.6-14.8) % Plt Count (150-400) X10^3/uL Neut % (Auto) (50-75) % Lymph % (Auto) (25-40) % [place] % (Auto) (3-14) % Eos % (Auto) (2-4) % Baso % (Auto) (0-2) % Neut # (Auto) (2611-2527) /uL Lymph # (Auto) (1880-6182) /uL [place] # (Auto) (0-900) /uL Eos # (Auto) (0-450) /uL Baso # (Auto) (0-100) /uL PT (9.4-12.5) SECONDS INR (0.9-1.3) D-Dimer (<500) ng/ml VBG pH (7.33-7.43) VBG pCO2 (45-50) mmHg VBG pO2 (35-45) mmHg VBG HCO3 (24-28) mmol/L VBG Total CO2 (24-29) mmol/L VBG O2 Saturation (70-75) % VBG Base Excess (0-4) mmol/L FiO2 Sodium (137-145) mmol/L Potassium (3.4-5.1) mmol/L Chloride (98-107) mmol/L Carbon Dioxide (22-32) mmol/L BUN (9-20) mg/dL Creatinine (0.66-1.25) mg/dL Estimated GFR (>60) mL/min BUN/Creatinine Ratio (6-22) Glucose (80-110) mg/dL Lactate (0.7-2.1) mmol/L Calcium (8.4-10.2) mg/dL Total Bilirubin (0.2-1.3) mg/dL AST (17-59) IU/L ALT (<50) IU/L Alkaline Phosphatase (38-126) U/L Troponin I (0.01-0.034) ng/mL NT-Pro-B Natriuret Pep (<125) pg/mL Total Protein (6.3-8.2) g/dL Albumin (3.5-5.0) g/dL Globulin (1.7-4.1) g/dL Albumin/Globulin Ratio (1.0-2.8) SARS-CoV-2 (PCR) Negative (Negative) Influenza A (RT-PCR) Flu a negative (NEGATIVE) Influenza B (RT-PCR) Flu b negative (NEGATIVE) RSV (PCR) Negative (Negative) Discharge Plan Departure Patient Disposition: Admitted As Inpatient Clinical Impression: Respiratory failure Admit Date/Time: 06/12/23 17:16 Admit Provider: Blas Vargas
[2023-06-12] MEDS: methylPREDNISolone 125 MG/2 ML VIAL IV (16:26)
[2023-06-12] MEDS: cefTRIAXone 1,000 MG in SODIUM CHLORIDE 0.9% 100 ML 200 MG IV (16:32)
[2023-06-12 16:33] LABS: Add Manual Diff / Slide Review NO; Basophils Absolute Auto 100 /uL (0-100); Basophils Percent Auto 0.7 % (0-2); Eosinophils Absolute Auto 500 /uL (0-450); Eosinophils Percent Auto 3.6 % (2-4); Hemoglobin 12.6 g/dL (13.5-17.5); Lymphocytes Absolute Auto 2500 /uL (1100-4500); Lymphocytes Percent Auto 16.5 % (25-40); Mean Corpuscular HGB Conc 31.6 % (30-36); Mean Corpuscular Hemoglobin 29.4 PG (26-34); Mean Corpuscular Volume 93.1 fL (80-100); Monocytes Absolute Auto 1700 /uL (0-900); Monocytes Percent Auto 11.2 % (3-14); Neutrophils Absolute Auto 10300 /uL (1500-7000); Platelet Count 470 X10^3/uL (150-400); Red Cell Distribution Width 15.2 % (11.6-14.8); White Blood Cell Count 15.1 X10^3/uL (4.5-11.0)
[2023-06-12 16:36] LABS: Prothrombin Time 11.6 SECONDS (9.4-12.5)
[2023-06-12] MEDS: DOXYCYCLINE HYCLATE 100 MG TABLET PO (16:39)
[2023-06-12 16:49] LABS: COVID-19 CEPHEID 4-PLEX PCR Negative (Negative); Influenza A - CEPHEID Flu A NEGATIVE (NEGATIVE); Influenza B - CEPHEID Flu B NEGATIVE (NEGATIVE); Respiratory Syncytial Virus Negative (Negative)
--- NOTE | 2023-06-12 16:52 | PC.NURSE ---
Pt states he has been feeling SOB x1 week. Pt states that he bought an O2 tank online w/o MD guidance and did not feel better after that so he decided to come to ER. Pt SOB is exacerbated with walking. Pt states he has really bad COPD and was told he had 2 years to live by his MD 3 years ago.
[2023-06-12 17:00] LABS: D Dimer 556 ng/ml (<500)
[2023-06-12 17:07] LABS: PCO2 VBG 71.1 mmHg (45-50); PO2 VBG 66 mmHg (35-45); pH VBG 7.32 (7.33-7.43)
[2023-06-12 17:08] LABS: HCO3 VBG 37 mmol/L (24-28); Oxygen Saturation VBG 90 % (70-75); Total CO2 VBG 39 mmol/L (24-29)
--- NOTE | 2023-06-12 17:24 | PM.HP.1 ---
History of Present Illness History of Present Illness Date Patient Seen: 06/12/23 Time Patient Seen: 17:24 Chief complaint: COPD, short of breath, sent by Dr Vargas Narrative: 72-year-old male seen in the clinic prior to admission who presented with about a week's worth of increasing cough some shortness of breath etcetera. Denied any true cold or flu symptoms no fever chills nausea vomiting. No recent travels, no change in medication, continued on his usual inhalers etcetera. No chest pain no palpitations denies any real PND but maybe some element of orthopnea ER evaluation demonstrates his persistent leukocytosis as well as significant hypoxia. He required initially 5+ L via nasal cannula to obtain an oxygen saturation of 90+ %, that has subsequently been turned down. Chest x-ray seem to demonstrate probable pneumonia with some element of congestive heart failure possibly present as well. No evidence of viral infection as RSV, COVID, and influenza swabs are negative Patient with a history of significant COPD as well as CO2 retention in fact required intubation little over year ago due to lack of respiratory drive secondary to oxygen replacement therapy when he presented with similar COPD exacerbation [facility] Medical History Acute hypercapnic respiratory failure Asthma Elevated d-dimer (~02/2020) Cellulitis (~02/2020) Unilateral primary osteoarthritis, right knee Olecranon bursitis of left elbow Former smoker Osteoarthritis Duodenal ulcer Gastric ulcer Essential hypertension Leukocytosis (01/19/11) Thrombocytosis (01/19/11) Obesity (01/19/11) Prostate cancer (2010) Eczema CTS (carpal tunnel syndrome) Weakness of right lower extremity (11/15/16) Low back pain of over 3 months duration (11/15/16) Acquired insufficiency of aortic valve (10/08/15) Hypothyroidism (08/21/14) Idiopathic peripheral neuropathy Cobalamin deficiency History of malignant neoplasm of prostate Chronic obstructive pulmonary disease (01/19/11) Surgical History History of arthroplasty of right knee (05/24/20) Status post cataract extraction of both eyes with insertion of intraocular lens Status post wrist surgery (2011) History of spinal fusion (2012) History of splenectomy (1975) Family History Brother Thyroid cancer Mother Breast cancer Father No problems noted. 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/buddhism: Roman Catholic travel history: recent leisure activities: art, volunteer work and other Smoking Status: Former smoker Tobacco: How many years used: 15 Smokeless tobacco user: other quit status: quit date established second hand exposure: No alcohol intake: former substance use type: does not use Meds Home Medications and Allergies Home Medications Medication Instructions Recorded Confirmed Type cyanocobalamin (vitamin B-12) 1,000 mcg PO QDAY ##0 04/04/17 06/12/23 History 1,000 mcg tablet,extended release diphenhydramine HCl 25 mg capsule 25 mg PO Q4-6H PRN Itching 09/14/17 06/12/23 History (Allergy (diphenhydramine)) duloxetine 30 mg capsule,delayed 30 mg PO DAILY #90 caps 05/31/20 06/12/23 Rx release triamcinolone acetonide 0.1 % 1 applic topical TID #80 grams 03/21/21 06/12/23 Rx topical cream acetaminophen 325 mg tablet 650 mg (2 x 325 mg) PO TID PRN 03/31/21 06/12/23 Rx Pain, Mild #60 tabs ibuprofen 400 mg tablet 400 mg PO Q4HR PRN pain, mild #60 03/31/21 06/12/23 Rx tabs omeprazole 40 mg capsule,delayed 40 mg PO BID #60 caps 11/10/21 06/12/23 Rx release Disabled Parking #1 ea 06/08/22 06/12/23 Rx albuterol sulfate 90 mcg/actuation 2 puff inhalation Q4HP PRN 12/08/22 06/12/23 Rx aerosol inhaler (Proventil HFA) shortness of breath or wheezing #6 ea ipratropium 20 mcg-albuterol 100 1 puff inhalation BID #24 grams 12/08/22 06/12/23 Rx mcg/actuation mist for inhalation (Combivent Respimat) levothyroxine 150 mcg tablet 150 mcg PO DAILY #180 tabs 12/08/22 06/12/23 Rx potassium chloride 20 mEq 20 meq PO DAILY #180 tabs 12/08/22 06/12/23 Rx tablet,extended release(part/cryst) (Klor-Con M) tamsulosin 0.4 mg capsule (Flomax) 0.4 mg PO DAILY #180 caps 12/08/22 06/12/23 Rx chlorthalidone 25 mg tablet 50 mg (2 x 25 mg) PO QDAY #180 tabs 02/09/23 06/12/23 Rx lorazepam 0.5 mg tablet 0.5 mg PO BEDTIME PRN sleep #60 05/24/23 06/12/23 Rx tabs Allergies Allergy/AdvReac Type Severity Reaction Status Date / Time crab [CRAB] Allergy Severe Throat Verified 06/12/23 15:12 swelling animal dander [ANIMAL DANDER] Allergy Mild Sinus Verified 06/12/23 15:12 congestion, itching, eczema pollen extracts Allergy Unknown Sinus Verified 06/12/23 15:12 [POLLEN EXTRACTS] congestion, itching, eczema Review of Systems Review of Systems ROS: Yes All systems reviewed with the patient and are negative except as otherwise documented Genitourinary Genitourinary: Denies hematuria, Denies oliguria, Denies difficulty urinating, Denies dysuria, Denies urinary frequency, Denies urinary hesitancy and Denies urinary incontinence Comments: Patient describing a fullness in the area where he believes his prostate to be that has not interfering with his ability to urinate at all nor with his ability to pass bowel movement. Does have a history of prostate cancer status post external beam radiation and seed implantation. No hematuria Exam Vital Signs (past 8 hours): - 06/12/23 15:48 06/12/23 15:50 06/12/23 15:59 Temperature 98.2 F Pulse Rate 80 83 92 H Respiratory Rate 28 H 28 H 24 Blood Pressure 130/81 135/78 Pulse Oximetry 74 L 89 L 92 Oxygen Delivery Method Room Air Nasal Cannula Nasal Cannula Oxygen Flow Rate 4 6 06/12/23 16:07 06/12/23 16:08 06/12/23 16:08 Temperature Pulse Rate 100 H 88 Respiratory Rate Blood Pressure 143/84 H Pulse Oximetry 90 L Oxygen Delivery Method Oxygen Flow Rate 06/12/23 16:30 06/12/23 16:30 Temperature Pulse Rate 92 H Respiratory Rate Blood Pressure 140/77 Pulse Oximetry 95 Oxygen Delivery Method Nasal Cannula Oxygen Flow Rate 3 Oxygen Delivery Method Nasal Cannula Oxygen Flow Rate 3 Narrative Exam Narrative: Morbidly obese male who does not appear to be in actually any distress just looks like he does not feel well sitting on exam table HEENT-normocephalic atraumatic Neck-no bruits Lungs-diminished breath sounds maybe some crackles at the bases, no wheezes although quite diminished breath sounds Heart-regular rate and rhythm, minimally tachycardic Extremities-no cyanosis clubbing or edema Objective Labs 06/13/23 06:38 06/13/23 06:38 Labs: Laboratory Results - last 24 hr 06/12/23 06/12/23 06/12/23 15:55 16:14 16:47 WBC 15.1 H RBC 4.30 L Hgb 12.6 L Hct 40.0 L MCV 93.1 MCH 29.4 MCHC 31.6 RDW 15.2 H Plt Count 470 H Neut % (Auto) 68.0 Lymph % (Auto) 16.5 L [place] % (Auto) 11.2 Eos % (Auto) 3.6 Baso % (Auto) 0.7 Neut # (Auto) 03978 H Lymph # (Auto) 2500 [place] # (Auto) 1700 H Eos # (Auto) 500 H Baso # (Auto) 100 PT 11.6 INR 1.0 D-Dimer 556 H VBG pH 7.32 L VBG pCO2 71.1 H VBG pO2 66 H VBG HCO3 37 H VBG Total CO2 39 H VBG O2 Saturation 90 H VBG Base Excess 10.0 H FiO2 0.40 SARS-CoV-2 (PCR) Negative Influenza A (RT-PCR) Flu a negative Influenza B (RT-PCR) Flu b negative RSV (PCR) Negative Assessment & Plan Assessment & Plan narrative: 1. Acute respiratory failure with hypoxia likely secondary to combination COPD and congestive heart failure-will treat as below 2. COPD exacerbation-patient I think deserves frequent nebulizer treatments oxygen replacement therapy at a minimum to keep his oxygen saturation around 88-89%. Patient is clearly demonstrated his tendency towards hypercapnia, including a venous pCO2 of 71. He was given some antibiotics in the ER and I would continue antibiotic therapy given findings on chest x-ray as well as the COPD exacerbation. IV corticosteroids makes sense, and he does appear to be somewhat better after nebulizer treatments in the ED etcetera Patient's viral studies in the ER turned up negative for COVID RSV and influenza. 3. Acute congestive heart failure-patient does have findings consistent with acute congestive heart failure both on x-ray and on exam he looks to be volume overloaded. Previous echocardiogram demonstrated normal left ventricular function. He probably does have significant element of pulmonary hypertension given his chronic lung disease. He has been given a dose of IV Lasix in the ER and I will continue with that and repeat his echocardiogram at this time. Fortunately BNP is not all that elevated I am not convinced that has a major component of his respiratory failure, but probably a contributing factor 4. Leukocytosis-patient the chronic longstanding history leukocytosis which he demonstrates here today as well. Nothing necessarily different about today's numbers verses previous 5. Hypertension-continue monitor his numbers. He has actually not required antihypertensive therapy recently 6. Hypothyroidism-continue patient's thyroid replacement therapy with levothyroxine 7. Prostatic fullness-unclear as to what this might mean exactly. Will defer evaluation as long as there are no clear urinary tract symptoms. This can be evaluated as an outpatient. 8. VTE prophylaxis-chemo prophylaxis with Lovenox appropriate and ordered 9. Code status-patient has previously requested full code status and in fact was intubated during a previous hospitalization because of respiratory failure. This is his current status as well
[2023-06-12 17:39] LABS: Influenza A - CEPHEID Flu A NEGATIVE (NEGATIVE); Influenza B - CEPHEID Flu B NEGATIVE (NEGATIVE); Respiratory Syncytial Virus Negative (Negative)
[2023-06-12 17:44] LABS: COVID-19 CEPHEID 4-PLEX PCR Negative (Negative)
--- NOTE | 2023-06-12 17:46 | PC.NURSE ---
spoke to Jackie at [facility] pt is waitlisted there Jackie states we're getting pretty tight so probably not noemi spoke to Jillian at [facility] faxed over facesheet, Jillian then called back and spoke to Dr. Gabriel [facility] was told to call around or to call back after [phone]
[2023-06-12 17:59] LABS: Lactate (Lactic Acid) 0.8 mmol/L (0.7-2.1)
[2023-06-12 18:01] LABS: Alanine Aminotransferase 21 IU/L (<50); Albumin 3.7 g/dL (3.5-5.0); Albumin Globulin Ratio 1.1 (1.0-2.8); Alkaline Phosphatase 73 U/L (38-126); Aspartate Aminotransferase 40 IU/L (17-59); BUN Creatinine Ratio 30.7 (6-22); Bilirubin Total 0.4 mg/dL (0.2-1.3); Blood Urea Nitrogen 23 mg/dL (9-20); Calcium 8.7 mg/dL (8.4-10.2); Carbon Dioxide 36 mmol/L (22-32); Chloride 104 mmol/L (98-107); Estimated Glomerular Filt Rate > 60 mL/min (>60); Globulin 3.5 g/dL (1.7-4.1); Glucose 92 mg/dL (80-110); HEMOLYSIS 19 (0-50); Potassium 4.5 mmol/L (3.4-5.1); Sodium 140 mmol/L (137-145); Total Protein 7.2 g/dL (6.3-8.2)
[2023-06-12 18:12] LABS: NT-proBNP (BNP-Adult 18+) 1790 pg/mL (<125); Troponin I < 0.012 ng/mL (0.01-0.034)
[2023-06-12] MEDS: methylPREDNISolone 125 MG/2 ML VIAL 80 MG IV (18:33)
[2023-06-12] MEDS: IPRATROPIUM 0.5 MG/2.5 ML NEB INH (19:20)
[2023-06-12] MEDS: ALBUTEROL 2.5 MG/3 ML NEB (ADULT) INH (19:20)
[2023-06-12] MEDS: SODIUM CHLORIDE 0.9% FLUSH 10 ML IV (21:19)
[2023-06-12] MEDS: PANTOPRAZOLE DR 40 MG TABLET PO (21:19)
[2023-06-13] VITALS (50 sets, daily range): BP systolic 94–174; BP diastolic 50–97; PULSE 66–107; RESP 14–32; TEMP 30–37.4; O2SAT 84–97
[2023-06-13] MEDS: methylPREDNISolone 125 MG/2 ML VIAL 80 MG IV ×4 (00:02→18:48)
[2023-06-13] MEDS: SODIUM CHLORIDE 0.9% FLUSH 10 ML IV ×4 (00:03→21:13)
[2023-06-13] MEDS: OXYCODONE IR 5 MG TABLET PO ×2 (02:14→21:17)
[2023-06-13] MEDS: NALOXONE 0.4 MG/ML VIAL 0.2 MG IV (05:57)
--- NOTE | 2023-06-13 06:00 | DI.ECHO.S_ITS ---
[facility]---------+ [facility] +---------+ : : [address] : : : : [id number] : : : : Phone: [phone] Echocardiogram Report + + :Name: DONAVON DE LA CRUZ Study Date: 06/13/2023 Height: 65 in : :[facility] ReadingLocation: Weight: 280 lb : : Gender: Male BSA: 2.3 m2 : :: 1950 Age: 72 yrs BP: 120/59 mmHg: :Reason For Study: CONGESTIVE HEART FAILURE : :Ordering Physician: TOMASA, : :CELIA Curran Performed By: Iris Chang : :Referring: CELIA RANDOLPH : + + Interpretation Summary Normal sinus rhythm. Normal LV size, mildly increased wall thickness; normal wall motion and LV systolic function. Ejection fraction is 60-65%. Normal chamber sizes. Aortic valve leaflets are mildly thickened and calcified but open well. Compared to prior study 03/28/2021 no changes have occurred. Procedure: A two-dimensional transthoracic echocardiogram with color flow and Doppler was performed. The study quality was technically difficult. Comparison is made with the echocardiogram of 03/28/2021. A contrast injection of Definity was performed to improve assessment of LV function. The patient was in sinus rhythm with heart rates between 72-94 bpm during the exam. Left Ventricle: The left ventricle is normal in size. Left ventricular wall thickness is mildly increased. The ejection fraction is estimated to be 60- 65%. Diastolic parameters suggest a relaxation abnormality of the left ventricle, consistent with probable normal filling pressures. Right Ventricle: The right ventricle is mildly dilated. The right ventricular systolic function is normal. Atria: The left atrial size is normal. Right atrial size is normal. There is no Doppler evidence for an interatrial shunt. Mitral Valve: The mitral valve leaflets appear mildly thickened, but open well. There is trace mitral regurgitation. Aortic Valve: The aortic valve is mildly calcified. There is mild aortic valve sclerosis. There is no aortic valve stenosis. There is mild aortic regurgitation. Tricuspid Valve: The tricuspid valve is not well visualized, but is grossly normal. There is trace tricuspid regurgitation. Pulmonic Valve: The pulmonic valve is not well visualized. There is no pulmonic valvular regurgitation. Great Vessels: The aortic root is borderline dilated. The dimensions of the ascending aorta are normal. The IVC is of normal diameter and collapses greater than 50% with a sniff. This suggests a low right atrial pressure of 3 mm Hg. Pericardium/ Pleura There is no pericardial effusion. There is no pleural effusion. MMode/2D Measurements & Calculations LVIDd: 5.5 cm LVOT diam: 2.1 cm LVIDs: 4.0 cm Ao root diam: 4.1 cm FS: 26.9 % asc Aorta Diam: 3.6 cm EPSS: 0.67 cm Ao Arch Diam (Prox Trans): 3.6 cm IVSd: 1.1 cm LVPWd: 1.1 cm LV bailey. diameter/BSA (cm/m^2): 2.4 LV sys. diameter/BSA (cm/m^2): 1.8 LA A2 area: 19.1 cm2 RA long axis: 4.5 cm LA A4 area: 16.3 cm2 RA area: 14.3 cm2 LA length (vol): 4.6 cm RA vol: 38.7 ml LA vol: 58.0 ml RA : 17.0 ml/m2 LA vol index: 25.4 ml/m2 IVC diam: 1.9 cm RVD1 (basal): 4.4 cm RVD2 (mid): 3.8 cm TAPSE: 2.5 cm Doppler Measurements & Calculations Ao V2 max: 179.6 cm/sec LVOT Max Romaine: 116.0 cm/sec Ao V2 mean: 123.0 cm/sec LV V1 max P.4 mmHg Ao max P.9 mmHg LV V1 VTI: 24.6 cm Ao mean P.7 mmHg BENJAMIN(I,D): 2.8 cm2 Ao V2 VTI: 32.0 cm BENJAMIN(V,D): 2.3 cm2 sev ratio: 0.77 BENJAMIN indexed to BSA (cm^2/m^2): 1.2 MV E max romaine: 85.1 cm/sec PA V2 max: 89.6 cm/sec MV A max romaine: 101.1 cm/sec PA V2 mean: 63.5 cm/sec MV E/A: 0.84 PA mean P.8 mmHg Med Peak E' Romaine: 7.3 cm/sec PA pr(Accel): 24.2 mmHg E/E' med: 11.6 Lat Peak E' Romaine: 8.8 cm/sec E/E' lat: 9.7 E/e' average: 10.6 MV dec time: 0.32 sec SVLVOT): 88.0 ml Electronically signed by: Bethany Strong M.D. on [place] Physician:06/13/2023 05:19 PM
--- NOTE | 2023-06-13 06:28 | DI.RAD.S_ITS ---
PROCEDURE: XR CHEST 1V INDICATIONS: resp distress TECHNIQUE: One view of the chest was acquired. COMPARISON: [facility], CR, XR CHEST 1V, 06/12/2023, 16:19. FINDINGS: Surgical changes and devices: Cervical fixation rods. Lungs and pleura: Overall appearance of increased vascularity. Mild bilateral effusions, left greater than right are present. Mild increased opacities are present in the base/retrocardiac region. Mediastinum: Mediastinal contours appear normal. Heart size is enlarged. Bones and chest wall: No suspicious bony lesions. Overlying soft tissues appear unremarkable. IMPRESSION: Cardiomegaly with increased vascularity and effusions most consistent with edema. Underlying areas of pneumonia and/or atelectasis cannot be excluded. Dictated by: Annabella Linn M.D. on 06/13/2023 at 9:48 Approved by: Annabella Linn M.D. on 06/13/2023 at 9:49
[2023-06-13] MEDS: FUROSEMIDE 40 MG/4 ML VIAL IV ×3 (06:44→21:12)
--- NOTE | 2023-06-13 06:53 | PM.CN.EICU ---
History of Present Illness Consult details IF CAMERA ACTIVATED, patient seen via real-time interactive audiovisual communication: Camera activated Chief complaint: COPD, short of breath, sent by Dr Vargas Reason for consult: Acute hypoxemia respiraotry failure Consent obtained for tele-door technician care: Yes Patient Location: ICU Provider location (State): [place] Other participants/roles: Bedside RN Narrative: Patient is a 72 year old male with history of morbid obesity, self reported COPD, and asthma who prsented with worsening shortness of breath. On presentation, CXR showed patchy airspace disease w/ cephalization. RSV, flu, and COVID negative. Started on CAP coverage and solumedrol. Admitted to the floor on 5 liters. Early this morning patient developed worsening shortness of breath and was less responsive. He was placed on BiPAP and transferred to ICU. Tele door technician consulted for respiratory failure management. On camera patient is interactive and following commands. On BiPAP 14/6 FiO2 36%. [facility], [facility] Medical History Acute hypercapnic respiratory failure Asthma Elevated d-dimer (~02/2020) Cellulitis (~02/2020) Unilateral primary osteoarthritis, right knee Olecranon bursitis of left elbow Former smoker Osteoarthritis Duodenal ulcer Gastric ulcer Essential hypertension Leukocytosis (01/19/11) Thrombocytosis (01/19/11) Obesity (01/19/11) Prostate cancer (2010) Eczema CTS (carpal tunnel syndrome) Weakness of right lower extremity (11/15/16) Low back pain of over 3 months duration (11/15/16) Acquired insufficiency of aortic valve (10/08/15) Hypothyroidism (08/21/14) Idiopathic peripheral neuropathy Cobalamin deficiency History of malignant neoplasm of prostate Chronic obstructive pulmonary disease (01/19/11) Surgical History History of arthroplasty of right knee (05/24/20) Status post cataract extraction of both eyes with insertion of intraocular lens Status post wrist surgery (2011) History of spinal fusion (2012) History of splenectomy (1975) Family History Brother Thyroid cancer Mother Breast cancer Father No problems noted. 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/judaism: Mormonism travel history: recent leisure activities: art, volunteer work and other Smoking Status: Former smoker Tobacco: How many years used: 15 Smokeless tobacco user: other quit status: quit date established second hand exposure: No alcohol intake: former substance use type: does not use Current Medications Current Medications Medications: Home Medications cyanocobalamin (vitamin B-12) 1,000 mcg tablet,extended release 1,000 mcg PO QDAY ##0 04/04/17 [History Confirmed 06/12/23] diphenhydramine HCl 25 mg capsule (Allergy (diphenhydramine)) 25 mg PO Q4-6H PRN Itching 09/14/17 [History Confirmed 06/12/23] duloxetine 30 mg capsule,delayed release 30 mg PO DAILY #90 caps 05/31/20 [Rx Confirmed 06/12/23] triamcinolone acetonide 0.1 % topical cream 1 applic topical TID #80 grams 03/21/21 [Rx Confirmed 06/12/23] acetaminophen 325 mg tablet 650 mg (2 x 325 mg) PO TID PRN Pain, Mild #60 tabs 03/31/21 [Rx Confirmed 06/12/23] ibuprofen 400 mg tablet 400 mg PO Q4HR PRN pain, mild #60 tabs 03/31/21 [Rx Confirmed 06/12/23] omeprazole 40 mg capsule,delayed release 40 mg PO BID #60 caps 11/10/21 [Rx Confirmed 06/12/23] Disabled Parking #1 ea 06/08/22 [Rx Confirmed 06/12/23] albuterol sulfate 90 mcg/actuation aerosol inhaler (Proventil HFA) 2 puff inhalation Q4HP PRN shortness of breath or wheezing #6 ea 12/08/22 [Rx Confirmed 06/12/23] ipratropium 20 mcg-albuterol 100 mcg/actuation mist for inhalation (Combivent Respimat) 1 puff inhalation BID #24 grams 12/08/22 [Rx Confirmed 06/12/23] levothyroxine 150 mcg tablet 150 mcg PO DAILY #180 tabs 12/08/22 [Rx Confirmed 06/12/23] potassium chloride 20 mEq tablet,extended release(part/cryst) (Klor-Con M) 20 meq PO DAILY #180 tabs 12/08/22 [Rx Confirmed 06/12/23] tamsulosin 0.4 mg capsule (Flomax) 0.4 mg PO DAILY #180 caps 12/08/22 [Rx Confirmed 06/12/23] chlorthalidone 25 mg tablet 50 mg (2 x 25 mg) PO QDAY #180 tabs 02/09/23 [Rx Confirmed 06/12/23] lorazepam 0.5 mg tablet 0.5 mg PO BEDTIME PRN sleep #60 tabs 05/24/23 [Rx Confirmed 06/12/23] Visit Medications (administered) Generic Name Dose Route Start Last Admin Trade Name Freq PRN Reason Stop Dose Admin Albuterol 2.5 mg 06/12/23 18:17 06/12/23 19:20 Albuterol 2.5 Mg/3 Ml Neb (Adult) INH 2.5 mg [id number] PRN Administration Dyspnea Ipratropium [place] 0.5 mg 06/12/23 19:00 06/12/23 19:20 Ipratropium 0.5 Mg/2.5 Ml Neb INH 0.5 mg RTQ4HR MANAN Administration Levothyroxine Sodium 150 mcg 06/13/23 06:00 06/13/23 06:25 Levothyroxine 75 Mcg Tablet PO Not Given 0600 MANAN Methylprednisolone 80 mg 06/12/23 18:17 06/13/23 05:50 Methylprednisolone 125 Mg/2 Ml Vial IV 80 mg Q6HR MANAN Administration Naloxone HCl 0.2 mg 06/12/23 18:17 06/13/23 05:57 Naloxone 0.4 Mg/Ml Vial IV 0.2 mg Q2MIN PRN Administration Opiate Reversal Oxycodone HCl 5 mg 06/12/23 18:17 06/13/23 02:14 Oxycodone Ir 5 Mg Tablet PO 5 mg Q3H PRN Administration Pain, Moderate (4-6) Pantoprazole Sodium 40 mg 06/12/23 21:00 06/12/23 21:[address] 40 Mg Tablet PO 40 mg BID MANAN Administration Sodium Chloride 10 ml 06/12/23 19:27 06/13/23 05:51 Sodium Chloride 0.9% Flush IV 10 ml PRN PRN Administration Flush Sodium Chloride 10 ml 06/12/23 21:00 06/12/23 21:19 Sodium Chloride 0.9% Flush IV 10 ml BID MANAN Administration Exam Vital Signs (past 8 hours): - 06/13/23 00:12 06/13/23 02:00 06/13/23 04:44 Temperature 96 F L 96.7 F L Pulse Rate 88 89 Respiratory Rate 22 19 Blood Pressure 143/83 H 128/62 Pulse Oximetry 92 92 97 Oxygen Delivery Method Nasal Cannula Oxygen Flow Rate 5 3 3 06/13/23 06:46 Temperature Pulse Rate 92 H Respiratory Rate 19 Blood Pressure 164/79 H Pulse Oximetry 90 L Oxygen Delivery Method Oxygen Flow Rate 3 Oxygen Delivery Method Nasal Cannula Oxygen Flow Rate 3 Narrative Exam Narrative: Lethargic and follow commands. On BiPAP. Objective Labs 06/12/23 16:14 06/12/23 16:14 Labs: Laboratory Results - last 24 hr 06/12/23 06/12/23 06/12/23 15:55 16:14 16:47 WBC 15.1 H RBC 4.30 L Hgb 12.6 L Hct 40.0 L MCV 93.1 MCH 29.4 MCHC 31.6 RDW 15.2 H Plt Count 470 H Neut % (Auto) 68.0 Lymph % (Auto) 16.5 L [place] % (Auto) 11.2 Eos % (Auto) 3.6 Baso % (Auto) 0.7 Neut # (Auto) 14770 H Lymph # (Auto) 2500 [place] # (Auto) 1700 H Eos # (Auto) 500 H Baso # (Auto) 100 PT 11.6 INR 1.0 D-Dimer 556 H VBG pH 7.32 L VBG pCO2 71.1 H VBG pO2 66 H VBG HCO3 37 H VBG Total CO2 39 H VBG O2 Saturation 90 H VBG Base Excess 10.0 H FiO2 0.40 Sodium 140 Potassium 4.5 Chloride 104 Carbon Dioxide 36 H BUN 23 H Creatinine 0.75 Estimated GFR > 60 BUN/Creatinine Ratio 30.7 H Glucose 92 Lactate 0.8 Calcium 8.7 Total Bilirubin 0.4 AST 40 ALT 21 Alkaline Phosphatase 73 Troponin I < 0.012 NT-Pro-B Natriuret Pep 1790 H Total Protein 7.2 Albumin 3.7 Globulin 3.5 Albumin/Globulin Ratio 1.1 SARS-CoV-2 (PCR) Negative Influenza A (RT-PCR) Flu a negative Influenza B (RT-PCR) Flu b negative RSV (PCR) Negative 06/12/23 16:50 WBC RBC Hgb Hct MCV MCH MCHC RDW Plt Count Neut % (Auto) Lymph % (Auto) [place] % (Auto) Eos % (Auto) Baso % (Auto) Neut # (Auto) Lymph # (Auto) [place] # (Auto) Eos # (Auto) Baso # (Auto) PT INR D-Dimer VBG pH VBG pCO2 VBG pO2 VBG HCO3 VBG Total CO2 VBG O2 Saturation VBG Base Excess FiO2 Sodium Potassium Chloride Carbon Dioxide BUN Creatinine Estimated GFR BUN/Creatinine Ratio Glucose Lactate Calcium Total Bilirubin AST ALT Alkaline Phosphatase Troponin I NT-Pro-B Natriuret Pep Total Protein Albumin Globulin Albumin/Globulin Ratio SARS-CoV-2 (PCR) Negative Influenza A (RT-PCR) Flu a negative Influenza B (RT-PCR) Flu b negative RSV (PCR) Negative Assessment & Plan Assessment & Plan narrative: NEURO: # Decondition -- PT/OT consultation -- Encourage early mobility when off BiPAP RESP: # Acute on chronic hypercapnea/hypoxemia respiratory failure -- Secondary to pulmonary edema w/ possible superimposed PNA -- On CAP coverage -- Check resp viral panel -- Cont diuresis to seek net negative fluid balance -- Cont BiPAP support to seek preload and afterload reduction -- Check TTE -- HOB elevation -- Aspiration precaution -- Goal SpO2 > 88% CVS: # HTN -- Goal SBP < 140 ID: # PNA -- On CAP coverage -- Check urinary legionella/strep -- Follow up resp viral panel ENDO: -- Goal BS < 180 D/w bedside rN.
--- NOTE | 2023-06-13 06:56 | PC.SBAR ---
SITUATION: [] BACKGROUND: [] ASSESSMENT: [] RECOMMENDATION: [] RESPONSE: []
--- NOTE | 2023-06-13 06:57 | PC.NURSE ---
0550 Went to patient's room to give his 0600 medications. Noted that he was sleeping & snoring loudly. Tried to wake him up, did vigorous sternal rub but still unresponsive, also noted that he was diaphoretic. Medicated with 5 mg. of Oxycodone @ 0214, also turned down his O2 to 3 liters his SPO2 was 88% @ this time. RT did ABG & CO2 was high. SALES AGENT [employer] Nely in the room assisting us. Checked his blood glucose & it was 142, Narcan was administered. He was able to opened his eyes, but still very lethargic. Called Dr. Mcrae to report the incident & pt. transferred to room 231.
[2023-06-13 06:59] LABS: Add Manual Diff / Slide Review NO; Basophils Absolute Auto 0 /uL (0-100); Basophils Percent Auto 0.3 % (0-2); Eosinophils Absolute Auto 0 /uL (0-450); Eosinophils Percent Auto 0.1 % (2-4); Hematocrit 46.3 % (41-53); Hemoglobin 14.6 g/dL (13.5-17.5); Lymphocytes Absolute Auto 1100 /uL (1100-4500); Lymphocytes Percent Auto 8.7 % (25-40); Mean Corpuscular HGB Conc 31.6 % (30-36); Mean Corpuscular Hemoglobin 30.2 PG (26-34); Mean Corpuscular Volume 95.7 fL (80-100); Monocytes Absolute Auto 100 /uL (0-900); Monocytes Percent Auto 0.6 % (3-14); Neutrophils Absolute Auto 11300 /uL (1500-7000); Neutrophils Percent Auto 90.3 % (50-75); Platelet Count 520 X10^3/uL (150-400); Red Blood Cell Count 4.84 X10^6/uL (4.5-5.9); Red Cell Distribution Width 15.3 % (11.6-14.8); White Blood Cell Count 12.6 X10^3/uL (4.5-11.0)
--- NOTE | 2023-06-13 07:00 | PC.NURSE ---
Transfer Note-Patient brought to ICU from at 0625 after being found obtunded by Josi BECERRA. This RN spoke with Dr. Augustine who ordered transfer to ICU with Tele-I Consult. Informed her ABG and EKG complete, Bi-pap placed, ordering STAT CXR, BNP, BMP, CBC, and 40mg IV Lasix x1 NOW. Spoke with Dr Lee who saw patient via Tele Monitor. Rodriguez placed. Patient started to wake up a bit, able to say where he is, color not as cyanotic.
[2023-06-13 07:20] LABS: BUN Creatinine Ratio 30.4 (6-22); Blood Urea Nitrogen 28 mg/dL (9-20); Calcium 8.6 mg/dL (8.4-10.2); Chloride 101 mmol/L (98-107); Estimated Glomerular Filt Rate > 60 mL/min (>60); Glucose 152 mg/dL (80-110); HEMOLYSIS < 15 (0-50); Sodium 142 mmol/L (137-145)
[2023-06-13 07:26] LABS: Carbon Dioxide 38 mmol/L (22-32)
[2023-06-13 07:29] LABS: NT-proBNP (BNP-Adult 18+) 1520 pg/mL (<125)
[2023-06-13 07:33] LABS: Potassium 6.1 mmol/L (3.4-5.1)
[2023-06-13 07:42] LABS: pH ABG 7.14 (7.35-7.45)
[2023-06-13 07:43] LABS: HCO3 ABG 40 mmol/L (23-27); PCO2 ABG 117.6 mmHg (35-45); PO2 ABG 65 mmHg (80-100); TCO2 ABG 44 mmol/L (23-27)
[2023-06-13 07:44] LABS: Allen Test for ABG Passed? Yes, Passed; Blood Gas Collection Site Left Radial; Fractionated Inspired Oxygen 36; Oxygen Saturation ABG 83 % (95-100)
--- NOTE | 2023-06-13 07:44 | P.PN_ITS ---
Subjective Subjective Date Patient Seen: 06/13/23 Time Patient Seen: 07:15 Interval history: Patient was doing well overnight, seem to be oxygenating adequately, with sats at 92-97%. Oxygen was turned down early this morning. He was then found to be unresponsive clearly cyanotic with low oxygen saturation. Rapid response team was called he was placed on BiPAP and transferred to the ICU. Initial ABG demonstrated a pCO2 of greater than 130. After some time on BiPAP repeat ABG showed the pCO2 down to 117. Patient's mentation seem to begin to improve. Patient was seen in consultation by the tele block press operator who agreed with ongoing respiratory support with BiPAP monitoring his ABG etcetera In addition that has not clear whether not he actually received Lasix in the emergency department, he did receive a dose therefore upon arrival in the ICU this morning. As I see him this morning he is awake and asking questions. Difficulty here him through his BiPAP mask but he really wants know how long he is going to be here. Obviously his mental status is improving as we go along. Oxygen saturation 89- 90%. Exam Vital Signs (past 8 hours): - 06/13/23 00:12 06/13/23 02:00 06/13/23 04:44 Temperature 96 F L 96.7 F L Pulse Rate 88 89 Respiratory Rate 22 19 Blood Pressure 143/83 H 128/62 Pulse Oximetry 92 92 97 Oxygen Delivery Method Nasal Cannula Oxygen Flow Rate 5 3 3 06/13/23 06:02 06/13/23 06:07 06/13/23 06:12 Temperature Pulse Rate 91 H 100 H 101 H Respiratory Rate 20 Blood Pressure 144/77 H 161/97 H 174/93 H Pulse Oximetry 97 89 L 88 L Oxygen Delivery Method Oxygen Flow Rate 8 3 3 06/13/23 06:46 06/13/23 07:00 06/13/23 07:01 Temperature Pulse Rate 92 H 83 Respiratory Rate 19 22 Blood Pressure 164/79 H 129/64 129/64 Pulse Oximetry 90 L 88 L Oxygen Delivery Method Oxygen Flow Rate 3 4 06/13/23 07:01 Temperature Pulse Rate 68 Respiratory Rate 19 Blood Pressure Pulse Oximetry 87 L Oxygen Delivery Method Oxygen Flow Rate 4 Oxygen Delivery Method Nasal Cannula Oxygen Flow Rate 4 Narrative Exam Narrative: Lungs-continue diminished breath sounds, can not really hear any crackles Objective Labs 06/13/23 06:38 06/13/23 06:38 Labs: Laboratory Results - last 24 hr 06/12/23 06/12/23 06/12/23 06:10 15:55 16:14 WBC 15.1 H RBC 4.30 L Hgb 12.6 L Hct 40.0 L MCV 93.1 MCH 29.4 MCHC 31.6 RDW 15.2 H Plt Count 470 H Neut % (Auto) 68.0 Lymph % (Auto) 16.5 L [place] % (Auto) 11.2 Eos % (Auto) 3.6 Baso % (Auto) 0.7 Neut # (Auto) 13853 H Lymph # (Auto) 2500 [place] # (Auto) 1700 H Eos # (Auto) 500 H Baso # (Auto) 100 PT 11.6 INR 1.0 D-Dimer 556 H ABG Sample Site Right radial ABG pH 7.07 L* ABG pCO2 > 130.0 H* ABG pO2 76 L ABG HCO3 0 L ABG Total CO2 0 L ABG O2 Saturation 0 L* ABG Base Excess 0.0 VBG pH VBG pCO2 VBG pO2 VBG HCO3 VBG Total CO2 VBG O2 Saturation VBG Base Excess FiO2 32 Sodium 140 Potassium 4.5 Chloride 104 Carbon Dioxide 36 H BUN 23 H Creatinine 0.75 Estimated GFR > 60 BUN/Creatinine Ratio 30.7 H Glucose 92 Lactate 0.8 Calcium 8.7 Total Bilirubin 0.4 AST 40 ALT 21 Alkaline Phosphatase 73 Troponin I < 0.012 NT-Pro-B Natriuret Pep 1790 H Total Protein 7.2 Albumin 3.7 Globulin 3.5 Albumin/Globulin Ratio 1.1 SARS-CoV-2 (PCR) Negative Influenza A (RT-PCR) Flu a negative Influenza B (RT-PCR) Flu b negative RSV (PCR) Negative 06/12/23 06/12/23 06/13/23 16:47 16:50 06:38 WBC 12.6 H RBC 4.84 Hgb 14.6 Hct 46.3 MCV 95.7 MCH 30.2 MCHC 31.6 RDW 15.3 H Plt Count 520 H Neut % (Auto) 90.3 H D Lymph % (Auto) 8.7 L [place] % (Auto) 0.6 L Eos % (Auto) 0.1 L Baso % (Auto) 0.3 Neut # (Auto) 25866 H Lymph # (Auto) 1100 [place] # (Auto) 100 Eos # (Auto) 0 Baso # (Auto) 0 PT INR D-Dimer ABG Sample Site ABG pH ABG pCO2 ABG pO2 ABG HCO3 ABG Total CO2 ABG O2 Saturation ABG Base Excess VBG pH 7.32 L VBG pCO2 71.1 H VBG pO2 66 H VBG HCO3 37 H VBG Total CO2 39 H VBG O2 Saturation 90 H VBG Base Excess 10.0 H FiO2 0.40 Sodium 142 Potassium 6.1 H D Chloride 101 Carbon Dioxide 38 H BUN 28 H Creatinine 0.92 Estimated GFR > 60 BUN/Creatinine Ratio 30.4 H Glucose 152 H Lactate Calcium 8.6 Total Bilirubin AST ALT Alkaline Phosphatase Troponin I NT-Pro-B Natriuret Pep 1520 H Total Protein Albumin Globulin Albumin/Globulin Ratio SARS-CoV-2 (PCR) Negative Influenza A (RT-PCR) Flu a negative Influenza B (RT-PCR) Flu b negative RSV (PCR) Negative PFSH Medical History Acute hypercapnic respiratory failure Asthma Elevated d-dimer (~02/2020) Cellulitis (~02/2020) Unilateral primary osteoarthritis, right knee Olecranon bursitis of left elbow Former smoker Osteoarthritis Duodenal ulcer Gastric ulcer Essential hypertension Leukocytosis (01/19/11) Thrombocytosis (01/19/11) Obesity (01/19/11) Prostate cancer (2010) Eczema CTS (carpal tunnel syndrome) Weakness of right lower extremity (11/15/16) Low back pain of over 3 months duration (11/15/16) Acquired insufficiency of aortic valve (10/08/15) Hypothyroidism (08/21/14) Idiopathic peripheral neuropathy Cobalamin deficiency History of malignant neoplasm of prostate Chronic obstructive pulmonary disease (01/19/11) Surgical History History of arthroplasty of right knee (05/24/20) Status post cataract extraction of both eyes with insertion of intraocular lens Status post wrist surgery (2011) History of spinal fusion (2012) History of splenectomy (1975) Family History Brother Thyroid cancer Mother Breast cancer Father No problems noted. 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 Respiratory failure-patient obviously quite hypercapnic likely multifactorial including his underlying lung disease (COPD) as well as an element of congestive heart failure. It does look like attempts were made and his oxygen level was decreased to prevent over oxygenating him resulting in reduced respiratory drive. Does seem to be improved on BiPAP which he will need to continue on for now. Continue with other therapies including the parental steroids diuresis on some level, frequent nebulizer treatments, and IV antibiotics. Echocardiogram to be performed later today 2. Patient's other medical problems are stable. Hopefully will improve enough to be able to have some nutrition orally without the BiPAP in place. 3. Hyperglycemia-patient with evidence of hyperglycemia in the past without diagnosis of diabetes. Currently on parental steroids. Will need to monitor his blood sugar numbers, and consider carb consistent diet and or insulin coverage depending on results
[2023-06-13] MEDS: IPRATROPIUM 0.5 MG/2.5 ML NEB INH ×3 (07:51→16:28)
[2023-06-13] MEDS: ALBUTEROL 2.5 MG/3 ML NEB (ADULT) INH ×2 (07:51→16:28)
[2023-06-13] MEDS: ENOXAPARIN 40 MG/0.4 ML SYRINGE SUBCUT ×2 (09:12→21:12)
[2023-06-13 10:07] LABS: PCO2 ABG 113.1 mmHg (35-45)
[2023-06-13 10:08] LABS: Allen Test for ABG Passed? Yes, Passed; Blood Gas Collection Site Left Radial; Fractionated Inspired Oxygen 45; HCO3 ABG 41 mmol/L (23-27); Oxygen Saturation ABG 89 % (95-100); PO2 ABG 78 mmHg (80-100); TCO2 ABG 45 mmol/L (23-27)
[2023-06-13 10:09] LABS: pH ABG 7.17 (7.35-7.45)
[2023-06-13] MEDS: acetaZOLAMIDE 250 MG TABLET PO (11:20)
[2023-06-13 11:29] LABS: Fractionated Inspired Oxygen 32; HCO3 ABG 41 mmol/L (23-27); Oxygen Saturation ABG 83 % (95-100); PCO2 ABG 86.8 mmHg (35-45); PO2 ABG 57 mmHg (80-100); TCO2 ABG 44 mmol/L (23-27)
[2023-06-13 11:30] LABS: Allen Test for ABG Passed? Yes, Passed; Blood Gas Collection Site Left Radial; pH ABG 7.28 (7.35-7.45)
[2023-06-13 11:55] LABS: MRSA (Nasal) PCR Not Detected (Not Detect)
--- NOTE | 2023-06-13 12:08 | CM.DANOTE ---
Initial DCP Assessment Note Pt is a 72 yo male, resident of [place], arrives with increase in cough and shortness of breath, PMH includes COPD and CO2 retention. PCP: Blas Vargas Payer: JONEL MUNGUIA Reviewed chart, met w/patient and a friend at bedside; introduced self and role. Patient is difficult to hear with Bipap on. Patient reports that he lives alone in [place], is indp in all aspects, drives. Patient reports his sister Allison is his DPOA. Review of chart notes from patient's admission in 2020 shows he has a hx of home caregivers through [facility], [facility] and a rehab stay at [facility]. CM team will plan to follow clinical course closely for assessment of need and coordination of discharge plan. EDITH Li Discharge Planning/Care Management CM Discharge Assessment Start: 06/13/23 11:52 Freq: Status: Active Protocol: Document 06/13/23 11:52 DENIZ (Rec: 06/13/23 12:08 DENIZ [id number]) Discharge Planning Assessment Assigned Transportation Aid EDITH Silva DPOA/Assigned Designee Name Allison Hauser, sister ( [place]) Contact Information [phone] Advance Directives? No Advance Directives on File No History Provided By Patient,Friend,Medical Record Prior Living Arrangements House Household Members none Type of transporation used prior to Drives own vehicle admit Independent with ADL's Yes Is patient alert and oriented? Yes Barriers to Discharge Yes Comment Lives alone, hx of [facility], [facility], and in home care. DCP TBD Transportation Arrangement TBD Referrals Initiated Other White board Updated in Patient Room with Yes name and ext. # of Transportation Aid
[2023-06-13 13:51] LABS: Blood Gas Collection Site Left Radial; Fractionated Inspired Oxygen 30; HCO3 ABG 40 mmol/L (23-27); Oxygen Saturation ABG 89 % (95-100); PO2 ABG 62 mmHg (80-100); TCO2 ABG 42 mmol/L (23-27); pH ABG 7.36 (7.35-7.45)
[2023-06-13 13:52] LABS: Allen Test for ABG Passed? Yes, Passed; PCO2 ABG 70.8 mmHg (35-45)
[2023-06-13 15:34] LABS: Adenovirus Not Detected (Not Detect); B. parapertussis Not Detected (Not Detecte); Bordetella pertussis Not Detected (Not Detect); Chlamydophila pneumoniae Not Detected (Not Detect); Coronavirus 229E Not Detected (Not Detect); Coronavirus HKU1 Not Detected (Not Detect); Coronavirus NL 63 Not Detected (Not Detect); Coronavirus OC43 Not Detected (Not Detect); Human Metapneumovirus Not Detected (Not Detect); Human Rhinovirus/Enterovirus Not Detected (Not Detect); Influenza A Not Detected (Not Detect); Influenza B Not Detected (Not Detect); Mycoplasma pneumoniae Not Detected (Not Detect); Parainfluenza Virus 1 Not Detected (Not Detect); Parainfluenza Virus 2 Not Detected (Not Detect); Parainfluenza Virus 3 Not Detected (Not Detect); Parainfluenza Virus 4 Not Detected (Not Detect); Respiratory Syncytial Virus Not Detected (Not Detect); SARS- CoV-2 Not Detected (Not Detecte)
[2023-06-13] MEDS: AZITHROMYCIN 500 MG in DEXTROSE 5% IN WATER 250 ML 250 MG IV (17:45)
[2023-06-13] MEDS: cefTRIAXone 2,000 MG in SODIUM CHLORIDE 0.9% 100 ML 200 MG IV (17:45)
[2023-06-13 18:00] LABS: PO2 ABG 76 mmHg (80-100)
[2023-06-13 18:04] LABS: pH ABG 7.07 (7.35-7.45)
[2023-06-13 18:05] LABS: Allen Test for ABG Passed? Yes, Passed; Blood Gas Collection Site Right Radial
[2023-06-13] MEDS: ALBUTEROL/IPRATROPIUM 3 ML AMPUL INH ×2 (18:57→23:11)
[2023-06-13] MEDS: BUDESONIDE 0.5 MG/2 ML NEB INH (19:06)
--- NOTE | 2023-06-13 20:35 | PM.ICURNDS ---
- Date Patient Seen: 06/13/23 Time Patient Seen: 20:35 :: This patient was seen via real time interactive two-way audiovisual telecommunication. Note: patient seen on MTD rounds appears comfortable on camera on bipap avaps settings abg improved in afternoon continue bipap overnight check abg in am please call eICU if condition changes
[2023-06-13] MEDS: PANTOPRAZOLE DR 40 MG TABLET PO (21:12)
[2023-06-14] VITALS (34 sets, daily range): BP systolic 68–167; BP diastolic 43–87; PULSE 65–93; RESP 13–35; TEMP 30–37.2; O2SAT 79–97
[2023-06-14] MEDS: methylPREDNISolone 125 MG/2 ML VIAL 80 MG IV ×5 (01:10→23:57)
[2023-06-14 05:22] LABS: BUN Creatinine Ratio 33.8 (6-22); Blood Urea Nitrogen 50 mg/dL (9-20); Calcium 8.5 mg/dL (8.4-10.2); Carbon Dioxide 39 mmol/L (22-32); Chloride 94 mmol/L (98-107); Estimated Glomerular Filt Rate 50 mL/min (>60); Glucose 154 mg/dL (80-110); HEMOLYSIS < 15 (0-50); Magnesium 1.7 mg/dL (1.6-2.3); Sodium 136 mmol/L (137-145)
[2023-06-14] MEDS: LEVOTHYROXINE 75 MCG TABLET 150 MCG PO (05:55)
--- NOTE | 2023-06-14 07:27 | PC.NURSE ---
Patient restful intermittently throughout the night. AOx4 while awake, but did get confused, suspicious, and anxious when O2 dropped. VSS, Afebrile, NSR, mildy hypotensive in the 90s at times. Tolerating BiPap AVAPS-FiO2 21-28% vs NC 1-2L, titrated to 88-92%. Tolerating low sodium diet. Voids per drake, 1400 UOP, no BM noted. PIV x2 intact. Patient reports tolerable pain with PRN Medication. Bedalarm on for safety, call light within reach.
--- NOTE | 2023-06-14 07:30 | PM.PN.1 ---
Subjective Subjective Date Patient Seen: 06/14/23 Time Patient Seen: 07:31 Interval history: Patient progressively improved least on paper through the course of the day on BiPAP yesterday. PCO2 progressively reduced. ABG still pending this morning Lab work shows slight bump in creatinine with now normal potassium. Transthoracic Echocardiogram essentially unchanged preserved left ventricular function no significant valvular disease Blood pressure has a been a bit labile. Oxygen requirements have overall reduced significantly. Blood sugar 150 or so on lab tests this morning Nursing staff also reports that he seems to quickly go from a more normal mentation to becoming more anxious and paranoid which is a sign that his CO2 levels are rising. When he goes back on BiPAP that is seems to calm things down and he is better again. They are actually quite surprised how quickly he can go from being ?normal ?to being affected by presumably rising CO2 levels This morning he is awake alert asked me again how long he is going to have to be here. Clearly says he feels better Anxious to get up out of bed and do something on his feet Exam Vital Signs (past 8 hours): - 06/14/23 00:00 06/14/23 00:00 06/14/23 00:00 Temperature 99.0 F Pulse Rate 79 Respiratory Rate 25 H Blood Pressure 95/58 L Pulse Oximetry 93 Oxygen Delivery Method BiPAP Oxygen Flow Rate 0 Fraction of Inspired Oxygen 06/14/23 01:00 06/14/23 01:00 06/14/23 02:00 Temperature Pulse Rate 77 75 Respiratory Rate 30 H 26 H Blood Pressure 105/53 L 124/60 Pulse Oximetry 93 90 L Oxygen Delivery Method Oxygen Flow Rate 0 0 Fraction of Inspired Oxygen 06/14/23 02:00 06/14/23 03:00 06/14/23 03:00 Temperature Pulse Rate 70 Respiratory Rate 25 H Blood Pressure 114/65 Pulse Oximetry 91 91 Oxygen Delivery Method BiPAP Oxygen Flow Rate 1 0 Fraction of Inspired Oxygen 06/14/23 03:00 06/14/23 04:00 06/14/23 04:00 Temperature 98.2 F Pulse Rate 67 Respiratory Rate 26 H Blood Pressure 108/55 L Pulse Oximetry 92 Oxygen Delivery Method Oxygen Flow Rate 0 Fraction of Inspired Oxygen 06/14/23 04:00 06/14/23 05:00 06/14/23 05:00 Temperature Pulse Rate 70 Respiratory Rate 26 H Blood Pressure 107/80 Pulse Oximetry 92 Oxygen Delivery Method BiPAP Oxygen Flow Rate Fraction of Inspired Oxygen 06/14/23 06:00 06/14/23 06:00 06/14/23 06:01 Temperature Pulse Rate 74 Respiratory Rate 23 Blood Pressure 68/43 L Pulse Oximetry 93 93 Oxygen Delivery Method Room Air Oxygen Flow Rate 2 Fraction of Inspired Oxygen 06/14/23 06:01 06/14/23 06:03 06/14/23 06:03 Temperature Pulse Rate 74 76 Respiratory Rate 27 H 29 H Blood Pressure 123/78 Pulse Oximetry 93 92 Oxygen Delivery Method Oxygen Flow Rate 1 Fraction of Inspired Oxygen Fraction of Inspired Oxygen 28 SaO2/FiO2 Ratio 100 Oxygen Delivery Method Room Air Oxygen Flow Rate 1 Objective Labs 06/13/23 06:38 06/14/23 04:05 Labs: Laboratory Results - last 24 hr 06/12/23 06/13/23 06/13/23 06:10 06:00 06:38 Sample Site Cancelled ABG Sample Site Cancelled Right radial ABG pH Cancelled 7.07 L* ABG pCO2 Cancelled 130.0 H* ABG pO2 Cancelled 76 L ABG HCO3 Cancelled Not Reportable ABG Total CO2 Cancelled Not Reportable ABG O2 Saturation Cancelled Not Reportable ABG Base Excess Cancelled Not Reportable FiO2 Cancelled Not Reportable Sodium 142 Potassium 6.1 H D Chloride 101 Carbon Dioxide 38 H BUN 28 H Creatinine 0.92 Estimated GFR > 60 BUN/Creatinine Ratio 30.4 H Glucose 152 H Calcium 8.6 Magnesium NT-Pro-B Natriuret Pep 1520 H Nasal Screen MRSA (PCR) Chlamy pneumoniae PCR Adenovirus (PCR) B.parapertussis DNA PCR Coronavirus OC43 (PCR) Coronavirus HKU1 (PCR) Coronavirus 229E (PCR) SARS-CoV-2 (PCR) Coronavirus NL63 (PCR) Human Metapneumovir PCR Influenza Type A (PCR) Influenza Type B (PCR) M. pneumoniae (PCR) Parainfluenza 1 (PCR) Parainfluenza 2 (PCR) Parainfluenza 3 (PCR) Parainfluenza 4 (PCR) RSV (PCR) Entero/Rhino (PCR) 06/13/23 06/13/23 06/13/23 06:53 07:12 09:13 Sample Site ABG Sample Site Left radial Left radial ABG pH 7.14 L* 7.17 L* ABG pCO2 117.6 H* 113.1 H* ABG pO2 65 L 78 L ABG HCO3 40 H 41 H ABG Total CO2 44 H 45 H ABG O2 Saturation 83 L* 89 L ABG Base Excess 11.0 H 13.0 H FiO2 36 45 Sodium Potassium Chloride Carbon Dioxide BUN Creatinine Estimated GFR BUN/Creatinine Ratio Glucose Calcium Magnesium NT-Pro-B Natriuret Pep Nasal Screen MRSA (PCR) Not detected Chlamy pneumoniae PCR Adenovirus (PCR) B.parapertussis DNA PCR Coronavirus OC43 (PCR) Coronavirus HKU1 (PCR) Coronavirus 229E (PCR) SARS-CoV-2 (PCR) Coronavirus NL63 (PCR) Human Metapneumovir PCR Influenza Type A (PCR) Influenza Type B (PCR) M. pneumoniae (PCR) Parainfluenza 1 (PCR) Parainfluenza 2 (PCR) Parainfluenza 3 (PCR) Parainfluenza 4 (PCR) RSV (PCR) Entero/Rhino (PCR) 06/13/23 06/13/23 06/13/23 11:11 11:31 13:34 Sample Site ABG Sample Site Left radial Left radial ABG pH 7.28 L* 7.36 ABG pCO2 86.8 H* 70.8 H* ABG pO2 57 L 62 L ABG HCO3 41 H 40 H ABG Total CO2 44 H 42 H ABG O2 Saturation 83 L* 89 L ABG Base Excess 14.0 H 14.0 H FiO2 32 30 Sodium Potassium Chloride Carbon Dioxide BUN Creatinine Estimated GFR BUN/Creatinine Ratio Glucose Calcium Magnesium NT-Pro-B Natriuret Pep Nasal Screen MRSA (PCR) Chlamy pneumoniae PCR Not detected Adenovirus (PCR) Not detected B.parapertussis DNA PCR Not detected Coronavirus OC43 (PCR) Not detected Coronavirus HKU1 (PCR) Not detected Coronavirus 229E (PCR) Not detected SARS-CoV-2 (PCR) Not detected Coronavirus NL63 (PCR) Not detected Human Metapneumovir PCR Not detected Influenza Type A (PCR) Not detected Influenza Type B (PCR) Not detected M. pneumoniae (PCR) Not detected Parainfluenza 1 (PCR) Not detected Parainfluenza 2 (PCR) Not detected Parainfluenza 3 (PCR) Not detected Parainfluenza 4 (PCR) Not detected RSV (PCR) Not detected Entero/Rhino (PCR) Not detected 06/14/23 04:05 Sample Site ABG Sample Site ABG pH ABG pCO2 ABG pO2 ABG HCO3 ABG Total CO2 ABG O2 Saturation ABG Base Excess FiO2 Sodium 136 L Potassium 4.0 D Chloride 94 L Carbon Dioxide 39 H BUN 50 H Creatinine 1.48 H Estimated GFR 50 L BUN/Creatinine Ratio 33.8 H Glucose 154 H Calcium 8.5 Magnesium 1.7 NT-Pro-B Natriuret Pep Nasal Screen MRSA (PCR) Chlamy pneumoniae PCR Adenovirus (PCR) B.parapertussis DNA PCR Coronavirus OC43 (PCR) Coronavirus HKU1 (PCR) Coronavirus 229E (PCR) SARS-CoV-2 (PCR) Coronavirus NL63 (PCR) Human Metapneumovir PCR Influenza Type A (PCR) Influenza Type B (PCR) M. pneumoniae (PCR) Parainfluenza 1 (PCR) Parainfluenza 2 (PCR) Parainfluenza 3 (PCR) Parainfluenza 4 (PCR) RSV (PCR) Entero/Rhino (PCR) [facility] Medical History Acute hypercapnic respiratory failure Asthma Elevated d-dimer (~02/2020) Cellulitis (~02/2020) Unilateral primary osteoarthritis, right knee Olecranon bursitis of left elbow Former smoker Osteoarthritis Duodenal ulcer Gastric ulcer Essential hypertension Leukocytosis (01/19/11) Thrombocytosis (01/19/11) Obesity (01/19/11) Prostate cancer (2010) Eczema CTS (carpal tunnel syndrome) Weakness of right lower extremity (11/15/16) Low back pain of over 3 months duration (11/15/16) Acquired insufficiency of aortic valve (10/08/15) Hypothyroidism (08/21/14) Idiopathic peripheral neuropathy Cobalamin deficiency History of malignant neoplasm of prostate Chronic obstructive pulmonary disease (01/19/11) Surgical History History of arthroplasty of right knee (05/24/20) Status post cataract extraction of both eyes with insertion of intraocular lens Status post wrist surgery (2011) History of spinal fusion (2012) History of splenectomy (1975) Family History Brother Thyroid cancer Mother Breast cancer Father No problems noted. 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 Respiratory failure-at this point seems much more likely that the vast majority of his respiratory issues are due to his significant COPD. I did review his prior PFTs from just after he presented in his similar situation in 2020. His FEV1 at that time was only 0.87. He has been seeing Pulmonary Medicine on an irregular basis in [place]. At this point he needs to continue on IV parental steroids IV parental antibiotics for community-acquired pneumonia, frequent nebulizers and I think he will continue benefit from some degree of respiratory support with BiPAP. Seems to be less likely there is a significant element of congestive heart failure here based on his echocardiogram, however his oxygen requirement has improved so perhaps his hypoxia was more on the basis of a bit of pulmonary edema while he also has the underlying severe COPD. At this point I am going to hold diuretic therapy today probably re-initiate a lower dose tomorrow after rechecking labs in ensuring creatinine is normalizing However I think we need to really work hard to maximize his pulmonary function prior to discharge. Given his propensity to swing very rapidly between presumably a more normal pCO2 and an abnormal pCO2 causing altered mental status and behavioral changes etcetera I think he needs to be much much better before he is discharged. He may look okay for a few hours and then rapidly declines. This is a patient I would likely keep in the hospital a bit longer than average because of this finding. This sounds very similar to his clinical response in 2020 when he was hospitalized, initially required intubation, required some Precedex for some time afterwards probably due least in part to his behavioral issues around his acidosis/rising pCO2 2. Hyperglycemia-continue to monitor. For now do not think he needs any specific intervention, blood sugars have remained less than 180 on testing 3. Hypertension-patient's blood pressure hopefully will settle down as we correct his other issues as above.
[2023-06-14] MEDS: TAMSULOSIN 0.4 MG CAPSULE PO (08:39)
[2023-06-14] MEDS: PANTOPRAZOLE DR 40 MG TABLET PO ×2 (08:39→20:47)
[2023-06-14] MEDS: DULOXETINE 30 MG CAPSULE PO (08:39)
[2023-06-14] MEDS: ENOXAPARIN 40 MG/0.4 ML SYRINGE SUBCUT ×2 (08:40→20:47)
[2023-06-14] MEDS: ASPIRIN EC 325 MG TABLET PO (08:40)
[2023-06-14] MEDS: ALBUTEROL/IPRATROPIUM 3 ML AMPUL INH ×5 (09:18→23:00)
[2023-06-14] MEDS: BUDESONIDE 0.5 MG/2 ML NEB INH ×2 (09:19→19:15)
--- NOTE | 2023-06-14 09:27 | P.TELICUPN_ITS ---
Subjective Subjective IF CAMERA ACTIVATED, patient seen via real-time interactive audiovisual communication: Camera activated Consent obtained for tele-vice president education care: Yes Patient Location: ICU Provider location (State): [place] Other participants/roles: Bedside RN and RT Interval history: -- No acute issues overnight -- Off AVAPS this morning -- Lasix held due to RODRICK Current Medications Current Medications Medications: Home Medications cyanocobalamin (vitamin B-12) 1,000 mcg tablet,extended release 1,000 mcg PO QDAY ##0 04/04/17 [History Confirmed 06/12/23] diphenhydramine HCl 25 mg capsule (Allergy (diphenhydramine)) 25 mg PO Q4-6H PRN Itching 09/14/17 [History Confirmed 06/12/23] duloxetine 30 mg capsule,delayed release 30 mg PO DAILY #90 caps 05/31/20 [Rx Confirmed 06/12/23] acetaminophen 325 mg tablet 650 mg (2 x 325 mg) PO TID PRN Pain, Mild #60 tabs 03/31/21 [Rx Confirmed 06/12/23] ibuprofen 400 mg tablet 400 mg PO Q4HR PRN pain, mild #60 tabs 03/31/21 [Rx Confirmed 06/12/23] omeprazole 40 mg capsule,delayed release 40 mg PO BID #60 caps 11/10/21 [Rx Confirmed 06/12/23] Disabled Parking #1 ea 06/08/22 [Rx Confirmed 06/13/23] albuterol sulfate 90 mcg/actuation aerosol inhaler (Proventil HFA) 2 puff inhalation Q4HP PRN shortness of breath or wheezing #6 ea 12/08/22 [Rx Confirmed 06/12/23] ipratropium 20 mcg-albuterol 100 mcg/actuation mist for inhalation (Combivent Respimat) 1 puff inhalation BID #24 grams 12/08/22 [Rx Confirmed 06/12/23] levothyroxine 150 mcg tablet 150 mcg PO DAILY #180 tabs 12/08/22 [Rx Confirmed 06/12/23] potassium chloride 20 mEq tablet,extended release(part/cryst) (Klor-Con M) 20 meq PO DAILY #180 tabs 12/08/22 [Rx Confirmed 06/12/23] tamsulosin 0.4 mg capsule (Flomax) 0.4 mg PO DAILY #180 caps 12/08/22 [Rx Confirmed 06/12/23] chlorthalidone 25 mg tablet 50 mg (2 x 25 mg) PO QDAY #180 tabs 02/09/23 [Rx Confirmed 06/12/23] lorazepam 0.5 mg tablet 0.5 mg PO BEDTIME PRN sleep #60 tabs 05/24/23 [Rx Confirmed 06/12/23] cyclobenzaprine 10 mg tablet 10 mg PO ONCE PM PRN prn 06/13/23 [History Confirmed 06/13/23] meloxicam 15 mg tablet 15 mg PO DAILY 06/13/23 [History Confirmed 06/13/23] Visit Medications (administered) Generic Name Dose Route Start Last Admin Trade Name Freq PRN Reason Stop Dose Admin Albuterol 2.5 mg 06/12/23 18:17 06/13/23 16:28 Albuterol 2.5 Mg/3 Ml Neb (Adult) INH 2.5 mg [id number] PRN Administration Dyspnea Albuterol/Ipratropium 3 ml 06/13/23 19:00 06/14/23 09:18 Albuterol/Ipratropium 3 Ml Ampul INH 3 ml [id number] MANAN Administration Aspirin 325 mg 06/13/23 09:00 06/14/23 08:40 Aspirin Ec 325 Mg Tablet PO 325 mg DAILY MANAN Administration Budesonide 0.5 mg 06/13/23 20:00 06/14/23 09:19 Budesonide 0.5 Mg/2 Ml Neb INH 0.5 mg RTBID MANAN Administration Duloxetine HCl 30 mg 06/13/23 09:00 06/14/23 08:39 Duloxetine 30 Mg Capsule PO 30 mg DAILY MANAN Administration Enoxaparin Sodium 40 mg 06/13/23 21:00 06/14/23 08:40 Enoxaparin 40 Mg/0.4 Ml Syringe SUBCUT 40 mg BID MANAN Administration Azithromycin 500 mg/ Dextrose 250 mls @ 250 mls/hr 06/13/23 17:00 06/14/23 08:49 IV Infused Q24H MANAN Infusion Ceftriaxone Sodium 2,000 mg/ 100 mls @ 200 mls/hr 06/13/23 17:00 06/14/23 08:49 Sodium Chloride IV Infused Q24H MANAN Infusion Levothyroxine Sodium 150 mcg 06/13/23 06:00 06/14/23 05:55 Levothyroxine 75 Mcg Tablet PO 150 mcg 0600 MANAN Administration Methylprednisolone 80 mg 06/12/23 18:17 06/14/23 05:55 Methylprednisolone 125 Mg/2 Ml Vial IV 80 mg Q6HR MANAN Administration Naloxone HCl 0.2 mg 06/12/23 18:17 06/13/23 05:57 Naloxone 0.4 Mg/Ml Vial IV 0.2 mg Q2MIN PRN Administration Opiate Reversal Oxycodone HCl 5 mg 06/12/23 18:17 06/13/23 21:17 Oxycodone Ir 5 Mg Tablet PO 5 mg Q3H PRN Administration Pain, Moderate (4-6) Pantoprazole Sodium 40 mg 06/12/23 21:00 06/14/23 08:[address] 40 Mg Tablet PO 40 mg BID MANAN Administration Sodium Chloride 10 ml 06/12/23 19:27 06/13/23 05:51 Sodium Chloride 0.9% Flush IV 10 ml PRN PRN Administration Flush Sodium Chloride 10 ml 06/12/23 21:00 06/14/23 08:51 Sodium Chloride 0.9% Flush IV Not Given BID MANAN Tamsulosin HCl 0.4 mg 06/13/23 09:00 06/14/23 08:39 Tamsulosin 0.4 Mg Capsule PO 0.4 mg DAILY MANAN Administration Objective Ventilator Parameters: Ventilator Settings FiO2 21 Ventilator Tidal Volume 455 Exhaled Labs 06/13/23 06:38 06/14/23 04:05 Labs: Laboratory Results - last 24 hr 06/12/23 06/13/23 06/13/23 06:10 06:00 06:53 Sample Site Cancelled ABG Sample Site Cancelled Right radial ABG pH Cancelled 7.07 L* ABG pCO2 Cancelled 130.0 H* ABG pO2 Cancelled 76 L ABG HCO3 Cancelled Not Reportable ABG Total CO2 Cancelled Not Reportable ABG O2 Saturation Cancelled Not Reportable ABG Base Excess Cancelled Not Reportable FiO2 Cancelled Not Reportable Sodium Potassium Chloride Carbon Dioxide BUN Creatinine Estimated GFR BUN/Creatinine Ratio Glucose Calcium Magnesium Nasal Screen MRSA (PCR) Not detected Chlamy pneumoniae PCR Adenovirus (PCR) B.parapertussis DNA PCR Coronavirus OC43 (PCR) Coronavirus HKU1 (PCR) Coronavirus 229E (PCR) SARS-CoV-2 (PCR) Coronavirus NL63 (PCR) Human Metapneumovir PCR Influenza Type A (PCR) Influenza Type B (PCR) M. pneumoniae (PCR) Parainfluenza 1 (PCR) Parainfluenza 2 (PCR) Parainfluenza 3 (PCR) Parainfluenza 4 (PCR) RSV (PCR) Entero/Rhino (PCR) 06/13/23 06/13/23 06/13/23 09:13 11:11 11:31 Sample Site ABG Sample Site Left radial Left radial ABG pH 7.17 L* 7.28 L* ABG pCO2 113.1 H* 86.8 H* ABG pO2 78 L 57 L ABG HCO3 41 H 41 H ABG Total CO2 45 H 44 H ABG O2 Saturation 89 L 83 L* ABG Base Excess 13.0 H 14.0 H FiO2 45 32 Sodium Potassium Chloride Carbon Dioxide BUN Creatinine Estimated GFR BUN/Creatinine Ratio Glucose Calcium Magnesium Nasal Screen MRSA (PCR) Chlamy pneumoniae PCR Not detected Adenovirus (PCR) Not detected B.parapertussis DNA PCR Not detected Coronavirus OC43 (PCR) Not detected Coronavirus HKU1 (PCR) Not detected Coronavirus 229E (PCR) Not detected SARS-CoV-2 (PCR) Not detected Coronavirus NL63 (PCR) Not detected Human Metapneumovir PCR Not detected Influenza Type A (PCR) Not detected Influenza Type B (PCR) Not detected M. pneumoniae (PCR) Not detected Parainfluenza 1 (PCR) Not detected Parainfluenza 2 (PCR) Not detected Parainfluenza 3 (PCR) Not detected Parainfluenza 4 (PCR) Not detected RSV (PCR) Not detected Entero/Rhino (PCR) Not detected 06/13/23 06/14/23 13:34 04:05 Sample Site ABG Sample Site Left radial ABG pH 7.36 ABG pCO2 70.8 H* ABG pO2 62 L ABG HCO3 40 H ABG Total CO2 42 H ABG O2 Saturation 89 L ABG Base Excess 14.0 H FiO2 30 Sodium 136 L Potassium 4.0 D Chloride 94 L Carbon Dioxide 39 H BUN 50 H Creatinine 1.48 H Estimated GFR 50 L BUN/Creatinine Ratio 33.8 H Glucose 154 H Calcium 8.5 Magnesium 1.7 Nasal Screen MRSA (PCR) Chlamy pneumoniae PCR Adenovirus (PCR) B.parapertussis DNA PCR Coronavirus OC43 (PCR) Coronavirus HKU1 (PCR) Coronavirus 229E (PCR) SARS-CoV-2 (PCR) Coronavirus NL63 (PCR) Human Metapneumovir PCR Influenza Type A (PCR) Influenza Type B (PCR) M. pneumoniae (PCR) Parainfluenza 1 (PCR) Parainfluenza 2 (PCR) Parainfluenza 3 (PCR) Parainfluenza 4 (PCR) RSV (PCR) Entero/Rhino (PCR) Exam Vital Signs (past 8 hours): - 06/14/23 02:00 06/14/23 02:00 06/14/23 03:00 Temperature Pulse Rate 75 70 Respiratory Rate 26 H 25 H Blood Pressure 124/60 Pulse Oximetry 90 L 91 91 Oxygen Delivery Method BiPAP Oxygen Flow Rate 0 1 0 Fraction of Inspired Oxygen 06/14/23 03:00 06/14/23 03:00 06/14/23 04:00 Temperature 98.2 F Pulse Rate 67 Respiratory Rate 26 H Blood Pressure 114/65 Pulse Oximetry 92 Oxygen Delivery Method Oxygen Flow Rate 0 Fraction of Inspired Oxygen 28 06/14/23 04:00 06/14/23 04:00 06/14/23 05:00 Temperature Pulse Rate 70 Respiratory Rate 26 H Blood Pressure 108/55 L Pulse Oximetry 92 Oxygen Delivery Method BiPAP Oxygen Flow Rate Fraction of Inspired Oxygen 06/14/23 05:00 06/14/23 06:00 06/14/23 06:00 Temperature Pulse Rate 74 Respiratory Rate 23 Blood Pressure 107/80 Pulse Oximetry 93 93 Oxygen Delivery Method Room Air Oxygen Flow Rate 2 Fraction of Inspired Oxygen 06/14/23 06:01 06/14/23 06:01 06/14/23 06:03 Temperature Pulse Rate 74 76 Respiratory Rate 27 H 29 H Blood Pressure 68/43 L Pulse Oximetry 93 92 Oxygen Delivery Method Oxygen Flow Rate Fraction of Inspired Oxygen 06/14/23 06:03 06/14/23 08:00 Temperature Pulse Rate Respiratory Rate Blood Pressure 123/78 Pulse Oximetry Oxygen Delivery Method BiPAP Oxygen Flow Rate 1 Fraction of Inspired Oxygen Fraction of Inspired Oxygen 28 SaO2/FiO2 Ratio 100 Oxygen Delivery Method BiPAP Oxygen Flow Rate 1 Assessment & Plan Assessment & Plan narrative: NEURO: # Decondition -- PT/OT -- Encourage early mobility RESP: # Acute on chronic hypercapnea/hypoxemia respiratory failure -- Secondary to pulmonary edema w/ possible superimposed PNA -- On CAP coverage -- Off BiPAP -- May benefit from home BiPAP -- Lasix held -- Pending TTE -- HOB elevation -- Aspiration precaution -- Goal SpO2 > 88% CVS: # HTN -- Goal SBP < 140 ID: # PNA -- On CAP coverage -- Follow up urinary legionella : # RODRICK -- Lasix held -- Avoid nephrotoxin agents -- Trend BMP -- Monitor UOP ENDO: -- Goal BS < 180
[2023-06-14] MEDS: MAGNESIUM CHLORIDE 64 MG TABLET 128 MG PO (09:52)
[2023-06-14 10:12] LABS: PCO2 ABG 55.3 mmHg (35-45); PO2 ABG 58 mmHg (80-100); pH ABG 7.42 (7.35-7.45)
[2023-06-14 10:13] LABS: Allen Test for ABG Passed? Yes, Passed; Blood Gas Collection Site Right Radial; Fractionated Inspired Oxygen 32; HCO3 ABG 36 mmol/L (23-27); Oxygen Saturation ABG 89 % (95-100); TCO2 ABG 38 mmol/L (23-27)
--- NOTE | 2023-06-14 11:57 | PT.IIE ---
Current Diagnoses Chronic obstructive pulmonary disease with (acute) exacerbation (06/12/23) Respiratory failure, unspecified, unspecified whether with hypoxia or hypercapnia (06/12/23) Surgical History (Last Reviewed 06/12/23 @ 17:26 by Blas Vargas MD) History of arthroplasty of right knee (05/24/20) History of spinal fusion (2012) History of splenectomy (1975) Status post cataract extraction of both eyes with insertion of intraocular lens Status post wrist surgery (2011) Medical History (Last Reviewed 06/12/23 @ 17:26 by Blas Vargas MD) Acquired insufficiency of aortic valve (10/08/15) Acute hypercapnic respiratory failure Asthma Cellulitis (~02/2020) Chronic obstructive pulmonary disease (01/19/11) Cobalamin deficiency CTS (carpal tunnel syndrome) Duodenal ulcer Eczema Elevated d-dimer (~02/2020) Essential hypertension Former smoker Gastric ulcer History of malignant neoplasm of prostate Hypothyroidism (08/21/14) Idiopathic peripheral neuropathy Leukocytosis (01/19/11) Low back pain of over 3 months duration (11/15/16) Obesity (01/19/11) Olecranon bursitis of left elbow Osteoarthritis Prostate cancer (2010) Thrombocytosis (01/19/11) Unilateral primary osteoarthritis, right knee Weakness of right lower extremity (11/15/16) Physical Therapy Inpatient Evaluation/Re-Eval M1 PT/OT-IP Prior Functional Status Start: 06/14/23 08:19 Freq: NEEDED Status: Active Protocol: Document 06/14/23 11:17 MB (Rec: 06/14/23 11:57 MB [id number]) Medical Review Prior Functional Status Medical History Reviewed Yes Diet/Fluid Consistency Regular Communication WNLs Mobility and Gait I to mod I with rollator Activities of Daily Living and IADL's Pt reports mod I, went to mass almost daily, lived at home alone, does have supportive zoroastrian family Social History Household Members none Living Arrangements House Number of Floors (Floors) One Floor Number of Stairs To Enter/Railing? 2 steps with left rail to enter Home Environment Standard Height Toilet,Walk in Shower,Built-In Shower Seat Home Equipment Front Wheel Walker,Four Wheel Walker,Straight Cane,Hand Held Shower Employment Status Retired M2 PT-IP Current Condition Start: 06/14/23 08:19 Freq: NEEDED Status: Active Protocol: Document 06/14/23 11:17 MB (Rec: 06/14/23 11:57 MB [id number]) Physical Therapy Current Condition Current Condition Evaluation Date 06/14/23 Treatment Diagnosis ARF, hypotension, CO2 retention M3 PT-IP Subjective Start: 06/14/23 08:19 Freq: NEEDED Status: Active Protocol: Document 06/14/23 11:17 MB (Rec: 06/14/23 11:57 MB [id number]) Subjective Physical Therapy Visit Type Type Initial Evaluation Visit Start Time 11:17 Visit Stop Time 11:35 Number of LEGISLATIVE CORRESPONDENT Visits 0 Physical Therapy Visit Comments Patient Comments Pt is wanting to get OOB. He is motivated to go home. Therapy Pain Assessment Pain When Pain Assessed At Rest Pain Present Pain Present Pain Reported Location Left Shoulder Intensity 8 Scale Used Numeric (0 - 10) Description Chronic Pain Management Techniques Re-positioning M4 PT-IP Mobility and Gait Start: 06/14/23 08:19 Freq: NEEDED Status: Active Protocol: Document 06/14/23 11:17 MB (Rec: 06/14/23 11:57 MB [id number]) PT-Bed Mobility Assessment Rolling Type of Rolling Roll to Right Level of Assist Contact Guard Assistance,1 Person Assistance Supine to Sit Supine to Sit Contact Guard Assistance,1 Person Assistance,Head of Bed Elevated,Bedrails Scooting Scooting to Edge of Bed Contact Guard Assistance PT-Transfer Assessment Sit to and From Stand Sit to and from Stand Contact Guard Assistance,1 Person Assistance,Use of Upper Extremities Equipment Transfer Assistive Device Gait Belt,Front Wheeled Walker Orthotic/Prosthetic Devices or Brace: No Transfers Transfer Destination Chair Transfer Technique Stepping Transfer Ability Level of Assist Contact Guard Assistance,1 Person Assistance,Use of Upper Extremities Comments Mobility Comments Pt tends to move very quickly and cues from PT and nsg to move slowly to see if he gets light-headed and d/t many lines. O2 sats on 2L remain around 91% with mobility Gait Assessment Gait Gait Assistance Required: Contact Guard Assist,1 Person Assist Distance (Feet) 5 Able to Maintain Weight Bearing Status Yes During Gait Assistive Devices Assistive Device Gait Belt,Front Wheeled Walker Orthotic/Prosthetic Devices or Brace: No Gait Deviations General Gait Pattern Decreased Stride Length, Decreased Feet Clearance, Flexed Trunk,Step-to Gait,Wide Based Gait Factors Limiting Gait Function Factors Limiting Gait Function Poor Balance,Respiratory Distress Comments Gait Comments Pt tends to move quickly and cues to slow down for safety. He also has a long catheter line and catheter is placed on RW. Pt takes several side steps and then steps forward and backwards 5' x2 sets PT-Balance Assessment Sitting Balance and Reactions Static Sitting Balance Ability Good Dynamic Sitting Balance Ability Good Standing Balance and Reactions Static Standing Balance Ability Good Dynamic Standing Balance Ability Good Device Used RW M5 PT-IP Objective Assessments Start: 06/14/23 08:19 Freq: NEEDED Status: Active Protocol: Document 06/14/23 11:17 MB (Rec: 06/14/23 11:57 MB [id number]) Orientation Orientation/Cognition Level of Alertness Alert Orientation Name,Age,Birthday,Month,Date, Year,Day of Week,Place, Situation Language Function Ability No Deficits Noted Safety Awareness Decreased Safety Awareness Memory Description No Deficits Noted Gross Range of Motion Upper Extremity ROM Assessment Left Impaired Impairments Pt reports long history of left shoulder pain and problems, receiving PT and injections, he uses both arms well functionally for mobility Lower Extremity ROM Assessment Within Functional Limits Strength Upper Extremity Strength Assessment Left Impaired Lower Extremity Strength Assessment Within Functional Limits Other Assessments Other Other Assessments Pt's face is ashy and of abnormal color and pt states this is d/t excema M6 PT-IP Treatment Start: 06/14/23 08:19 Freq: NEEDED Status: Active Protocol: Document 06/14/23 11:17 MB (Rec: 06/14/23 11:57 MB [id number]) Physical Therapy Treatment Education Education Provided Safety M7 PT-IP Assessment and Plan Start: 06/14/23 08:19 Freq: NEEDED Status: Active Protocol: Document 06/14/23 11:17 MB (Rec: 06/14/23 11:57 MB [id number]) PT Summary Assessment and Plan Potential Rehabilitation Potential Fair Status of Condition at Evaluation Evolving Summary Impairments Pain,Bed Mobility,Transfers, Gait,Activity Tolerance Progress Towards Goals Progressing Toward Goals,Slow Progress due to Medical Issues Assessment Summary Pt is a pleasant and motivated gentleman who has had 2-3 episodes per his report of respiratory distress and high CO2. Pt currently on 2L O2 with goal of 88-89% saturation per nsg and he remains around 91% on the 2L with mobility. He is not particularly dyspnea with mobility and does tend to move quickly and needs cues to slow down and to move more thoughtfully and slowly. He reports an old injury to his left shoulder. He lives alone and states he does have some support from his parish. Recommend increased assistance , life alert and HHPT and nsg at d/c. Goals Bed Mobility Goal Independent Transfer Goal Independent,Front Wheeled Walker,Four Wheeled Walker Gait Goal Independent,Front Wheel Walker ,Four Wheel Walker Gait Distance 100 Other Goals Pt will ascend and descend 2 steps with left rail and no more than superv assistance to allow safe home entrance. Frequency of Treatment Frequency Of Treatment Once a Day Treatment Plan Physical Therapy Treatment Plan Bed Mobility Training,Transfer Training,Gait Training, Therapeutic Exercise,Balance Retraining,Discharge Planning, Hot or Cold Pack Weight Bearing Status Weight Bearing Status Weight Bear as Tolerated Recommendations To Nursing Amount of Assist Needed 1 Person Assist Discharge Recommendations PT Discharge Recommendations Home with Assistance,Home Health Transportation Needs at Discharge Private Vehicle,Wheelchair/ Cabulance
--- NOTE | 2023-06-14 12:29 | PC.NURSE ---
Addendum entered by Sarah Sanchez R.N. 06/14/23 15:01: 1501 Removed O2 NC due to sats of 94%, no further needs at this time Original Note: Patient OOB to chair worked with PT today, steady on feet with FWW, tolerated well. Telemetry d/c pt was in NSR, O2 1L NC 89%, see chart for most recent ABG, per e-ICU ok to leave pt off BiPAP until sleep. Rodriguez patent and draining, chair alarm for safety, call light within reach, no further needs at this time.
[2023-06-14] MEDS: cefTRIAXone 2,000 MG in SODIUM CHLORIDE 0.9% 100 ML 200 MG IV (18:41)
[2023-06-14] MEDS: AZITHROMYCIN 500 MG in DEXTROSE 5% IN WATER 250 ML 250 MG IV (20:17)
--- NOTE | 2023-06-14 20:26 | P.ICUMDRN_ITS ---
- Date Patient Seen: 24 :: This patient was seen via real time interactive two-way audiovisual telecommunic ation. Note: Patient remains off BiPAP and now on 3 liters NC. Cont BiPAP nightly. Okay to downgrade to floor status. D/w bedside RN.
[2023-06-14] MEDS: SODIUM CHLORIDE 0.9% FLUSH 10 ML IV (20:47)
[2023-06-14] MEDS: OXYCODONE IR 5 MG TABLET PO (20:47)
[2023-06-15] VITALS (27 sets, daily range): BP systolic 118–140; BP diastolic 56–68; PULSE 68–93; RESP 16–28; TEMP 31–37; O2SAT 88–97
[2023-06-15] MEDS: OXYCODONE IR 5 MG TABLET PO ×2 (03:10→19:35)
[2023-06-15] MEDS: LEVOTHYROXINE 75 MCG TABLET 150 MCG PO (06:10)
[2023-06-15] MEDS: methylPREDNISolone 125 MG/2 ML VIAL 80 MG IV ×3 (06:11→18:31)
--- NOTE | 2023-06-15 06:35 | PC.NURSE ---
Winterizer Note-Patient used Bipap/AVAP for about 6 hrs total overnight, otherwise on 1L NC or RA to keep SpO2 88-92%. Denies shortness of breath. A/Ox4, uses call light appropriately. Oxycodone given for Lt shoulder and back pain. Total UOP 1275ml.
[2023-06-15 06:52] LABS: BUN Creatinine Ratio 41.7 (6-22); Blood Urea Nitrogen 50 mg/dL (9-20); Calcium 8.3 mg/dL (8.4-10.2); Carbon Dioxide 35 mmol/L (22-32); Chloride 96 mmol/L (98-107); Estimated Glomerular Filt Rate > 60 mL/min (>60); Glucose 143 mg/dL (80-110); HEMOLYSIS < 15 (0-50); Potassium 3.7 mmol/L (3.4-5.1); Sodium 135 mmol/L (137-145)
[2023-06-15 06:59] LABS: NT-proBNP (BNP-Adult 18+) 137 pg/mL (<125)
[2023-06-15] MEDS: BUDESONIDE 0.5 MG/2 ML NEB INH ×2 (07:00→20:17)
[2023-06-15] MEDS: ALBUTEROL/IPRATROPIUM 3 ML AMPUL INH ×4 (07:00→20:17)
--- NOTE | 2023-06-15 07:04 | RT ---
pt went on Bipap at 2300 06/14/23 [place] [address]/15/23 pt has been on RA at 93%
--- NOTE | 2023-06-15 08:26 | P.PN_ITS ---
Subjective Subjective Date Patient Seen: 06/15/23 Time Patient Seen: 08:27 Interval history: Patient with reasonably good day yesterday. Was up out of bed with PT. Did well with that. Is on minimum oxygen mostly overnight. Labs this morning show improvement in his creatinine. BNP now normal. Exam Vital Signs (past 8 hours): - 06/15/23 01:00 06/15/23 02:00 06/15/23 03:00 Pulse Rate 74 68 74 Respiratory Rate Blood Pressure Pulse Oximetry 88 L 92 91 Oxygen Delivery Method Fraction of Inspired Oxygen 06/15/23 04:00 06/15/23 04:00 06/15/23 04:00 Pulse Rate 68 Respiratory Rate Blood Pressure Pulse Oximetry 90 L 90 L Oxygen Delivery Method Nasal Cannula BiPAP BiPAP Fraction of Inspired Oxygen 06/15/23 05:00 06/15/23 07:00 06/15/23 07:03 Pulse Rate 68 72 Respiratory Rate 24 Blood Pressure 118/67 Pulse Oximetry 92 91 93 Oxygen Delivery Method Room Air Fraction of Inspired Oxygen 24 06/15/23 08:00 Pulse Rate 86 Respiratory Rate Blood Pressure Pulse Oximetry 92 Oxygen Delivery Method Fraction of Inspired Oxygen Fraction of Inspired Oxygen 24 SaO2/FiO2 Ratio 100 Oxygen Delivery Method Room Air Oxygen Flow Rate 1 Objective Labs 06/13/23 06:38 06/15/23 04:10 Labs: Laboratory Results - last 24 hr 06/14/23 06/15/23 09:40 04:10 ABG Sample Site Right radial ABG pH 7.42 ABG pCO2 55.3 H ABG pO2 58 L ABG HCO3 36 H ABG Total CO2 38 H ABG O2 Saturation 89 L ABG Base Excess 12.0 H FiO2 32 Sodium 135 L Potassium 3.7 Chloride 96 L Carbon Dioxide 35 H BUN 50 H Creatinine 1.20 Estimated GFR > 60 BUN/Creatinine Ratio 41.7 H Glucose 143 H Calcium 8.3 L Magnesium 2.0 NT-Pro-B Natriuret Pep 137 H [facility] Medical History Acute hypercapnic respiratory failure Asthma Elevated d-dimer (~02/2020) Cellulitis (~02/2020) Unilateral primary osteoarthritis, right knee Olecranon bursitis of left elbow Former smoker Osteoarthritis Duodenal ulcer Gastric ulcer Essential hypertension Leukocytosis (01/19/11) Thrombocytosis (01/19/11) Obesity (01/19/11) Prostate cancer (2010) Eczema CTS (carpal tunnel syndrome) Weakness of right lower extremity (11/15/16) Low back pain of over 3 months duration (11/15/16) Acquired insufficiency of aortic valve (10/08/15) Hypothyroidism (08/21/14) Idiopathic peripheral neuropathy Cobalamin deficiency History of malignant neoplasm of prostate Chronic obstructive pulmonary disease (01/19/11) Surgical History History of arthroplasty of right knee (05/24/20) Status post cataract extraction of both eyes with insertion of intraocular lens Status post wrist surgery (2011) History of spinal fusion (2012) History of splenectomy (1975) Family History Brother Thyroid cancer Mother Breast cancer Father No problems noted. 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 COPD exacerbation causing respiratory failure-continue with parental steroids. He is also on antibiotic therapy for potential pneumonia I think we can switch that to oral antibiotic therapy today. Does need to continue with frequent nebulizer treatments. In preparation for sending him home, we are working on a home noninvasive ventilator. I think patient does require a noninvasive ventilator for home care to be successful not bounce back to the hospital because of his severe COPD. We tried him with standard BiPAP here in the hospital in that was not sufficient for his particular COPD. There was no improvement in his respiratory status as documented with his arterial blood gas. Therefore I would like to order AVAPS- AE for nocturnal use and mouth piece ventilation as needed during the day. As noted previously the BiPAP was insufficient because of the severity of his COPD. COPD is his primary cause of his respiratory failure. He is benefitted here in the hospital from that is sort of noninvasive ventilation, with clinical improvement as well as objective improvement in his arterial blood gas He can probably be switched over to oral corticosteroids tomorrow. I think he can be downgraded out of the ICU status today. 2. Hypertension-adequate control blood pressure for now. No change in plan. Overall patient is improving. Continue with physical therapy etcetera. Probably be okay for discharge about Sunday the more or less. Will be seen tomorrow by Dr. Green and I will communicate with him before end of day
[2023-06-15] MEDS: ASPIRIN EC 325 MG TABLET PO (09:14)
[2023-06-15] MEDS: PANTOPRAZOLE DR 40 MG TABLET PO ×2 (09:14→20:47)
[2023-06-15] MEDS: TAMSULOSIN 0.4 MG CAPSULE PO (09:14)
[2023-06-15] MEDS: DULOXETINE 30 MG CAPSULE PO (09:14)
[2023-06-15] MEDS: ENOXAPARIN 40 MG/0.4 ML SYRINGE SUBCUT ×2 (09:14→20:48)
[2023-06-15] MEDS: FUROSEMIDE 20 MG TABLET PO (09:14)
[2023-06-15] MEDS: SODIUM CHLORIDE 0.9% FLUSH 10 ML IV ×2 (09:14→20:47)
--- NOTE | 2023-06-15 10:05 | PT.IPTN ---
Current Diagnoses Chronic obstructive pulmonary disease with (acute) exacerbation (06/12/23) Respiratory failure, unspecified, unspecified whether with hypoxia or hypercapnia (06/12/23) Physical Therapy Treatment Note M2 PT-IP Current Condition Start: 06/14/23 08:19 Freq: NEEDED Status: Active Protocol: Document 06/14/23 11:17 MB (Rec: 06/14/23 11:57 MB [id number]) Physical Therapy Current Condition Current Condition Evaluation Date 06/14/23 Treatment Diagnosis ARF, hypotension, CO2 retention M3 PT-IP Subjective Start: 06/14/23 08:19 Freq: NEEDED Status: Active Protocol: Document 06/15/23 10:41 TS (Rec: 06/15/23 10:52 TS [id number]) Subjective Physical Therapy Visit Type Type Treatment Note Visit Start Time 10:05 Visit Stop Time 10:22 Number of SECOND CHEF Visits 1 Physical Therapy Visit Comments Patient Comments Pt found resting in chair, reports he is feeling better, Spo2 92% on RA, is agreeable to PT. M4 PT-IP Mobility and Gait Start: 06/14/23 08:19 Freq: NEEDED Status: Active Protocol: Document 06/15/23 10:41 TS (Rec: 06/15/23 10:52 TS [id number]) PT-Transfer Assessment Sit to and From Stand Sit to and from Stand Standby Assistance Equipment Transfer Assistive Device Gait Belt Orthotic/Prosthetic Devices or Brace: No Comments Mobility Comments STS from chair SBA with no AD, pt uses BUE support to push from arms of chair to come into standing. He ambulated in hallway ~225' SBA with FWW, denied any dizziness or SOB, Spo2 87% on RA. He performed steps x12 in stairwell SBA with B handrail support, had no buckling or LOB. Pt ambulated back to room, Spo2 91% on RA, again denied SOB. Pt was left in chair, all needs met. Gait Assessment Gait Gait Assistance Required: Standby Assistance Distance (Feet) 225 Able to Maintain Weight Bearing Status Yes During Gait Assistive Devices Assistive Device Gait Belt,Front Wheeled Walker Orthotic/Prosthetic Devices or Brace: No Gait Deviations General Gait Pattern Decreased Stride Length, Decreased Feet Clearance, Flexed Trunk,Step-to Gait,Wide Based Gait Factors Limiting Gait Function Factors Limiting Gait Function Decreased Strength,Poor Balance,Respiratory Distress Comments Gait Comments See mobility comments Stair Climbing Assessment Evaluation Level of Assist On Stairs Standby Assistance Devices Stair Climbing Assistive Devices Left Railing,Right Railing Technique/Endurance Stair Climbing Direction Ascend and Descend Stair Climbing Technique Step to Step Number of Steps Climbed 12 Comments Stair Climbing Comments See mobility comments PT-Balance Assessment Sitting Balance and Reactions Static Sitting Balance Ability Good Dynamic Sitting Balance Ability Good Standing Balance and Reactions Static Standing Balance Ability Good Dynamic Standing Balance Ability Good Device Used RW M5 PT-IP Objective Assessments Start: 06/14/23 08:19 Freq: NEEDED Status: Active Protocol: Document 06/14/23 11:17 MB (Rec: 06/14/23 11:57 MB [id number]) Orientation Orientation/Cognition Level of Alertness Alert Orientation Name,Age,Birthday,Month,Date, Year,Day of Week,Place, Situation Language Function Ability No Deficits Noted Safety Awareness Decreased Safety Awareness Memory Description No Deficits Noted Gross Range of Motion Upper Extremity ROM Assessment Left Impaired Impairments Pt reports long history of left shoulder pain and problems, receiving PT and injections, he uses both arms well functionally for mobility Lower Extremity ROM Assessment Within Functional Limits Strength Upper Extremity Strength Assessment Left Impaired Lower Extremity Strength Assessment Within Functional Limits Other Assessments Other Other Assessments Pt's face is ashy and of abnormal color and pt states this is d/t excema M6 PT-IP Treatment Start: 06/14/23 08:19 Freq: NEEDED Status: Active Protocol: Document 06/15/23 10:41 TS (Rec: 06/15/23 10:52 [id number]) Physical Therapy Treatment Education Education Provided Safety M7 PT-IP Assessment and Plan Start: 06/14/23 08:19 Freq: NEEDED Status: Active Protocol: Document 06/15/23 10:41 TS (Rec: 06/15/23 10:52 [id number]) PT Summary Assessment and Plan Potential Rehabilitation Potential Fair Summary Impairments Pain,Bed Mobility,Transfers, Gait,Activity Tolerance Progress Towards Goals Progressing Toward Goals Assessment Summary Tanner is making good progress with his mobility. He performed STS with no AD SBA. He progressed his gait to ~225 'SBA with FWW, denied any SOB or dizziness. He performed stairs x12 ascending/ descending with B handrails, had no buckling or LOB. Spo2 remained mostly in low 90's with mobility, pt did desat to 87% but quickly recovered. PT is recommending home with assist and HHPT. Goals Bed Mobility Goal Independent Transfer Goal Independent,Front Wheeled Walker,Four Wheeled Walker Gait Goal Independent,Front Wheel Walker ,Four Wheel Walker Gait Distance 100 Other Goals Pt will ascend and descend 2 steps with left rail and no more than superv assistance to allow safe home entrance. Days to Meet Goals 5 Frequency of Treatment Frequency Of Treatment Once a Day Treatment Plan Physical Therapy Treatment Plan Bed Mobility Training,Transfer Training,Gait Training, Therapeutic Exercise,Balance Retraining,Discharge Planning, Hot or Cold Pack Weight Bearing Status Weight Bearing Status Weight Bear as Tolerated Recommendations To Nursing Amount of Assist Needed Standby Assistance Discharge Recommendations PT Discharge Recommendations Home with Assistance,Home Health Transportation Needs at Discharge Private Vehicle
--- NOTE | 2023-06-15 14:18 | CM.DPC ---
DCP Cont Met w/patient to review DCP; patient has been cleared by therapy for return home w/assist. Patient reports he has friends and his landlord that are available to help him physically as needed. Discussed home health and patient agreeable. No agency preference. F2F and HH order completed, sent to [facility] with soonest availability in mind. Reviewed with Dr Vargas. Notes indicate patient is likely ready for discharge over the next 48 hrs. Plan: Discharge home w/friends to assist as needed, [facility] RN/PT/OT/PATCHING MACHINE OPERATOR. CM team following closely for coordination of DCP JW
[2023-06-15 14:45] LABS: Legionella pneumo Antigen Negative (Negative)
[2023-06-15] MEDS: AZITHROMYCIN 250 MG TABLET PO (18:31)
[2023-06-16] VITALS (16 sets, daily range): BP systolic 122–167; BP diastolic 72–84; PULSE 56–77; RESP 16–244; TEMP 30–37.1; O2SAT 88–97
[2023-06-16] MEDS: methylPREDNISolone 125 MG/2 ML VIAL 80 MG IV ×2 (00:13→06:33)
--- NOTE | 2023-06-16 00:34 | RT ---
At 0034 this morning, pt noted off BiPAP and on 1L NC. Pt stated that he wanted to take a break.
[2023-06-16] MEDS: ALBUTEROL/IPRATROPIUM 3 ML AMPUL INH ×6 (00:35→22:58)
--- NOTE | 2023-06-16 01:59 | RT ---
RT checked in with pt at 0159 and offered to help pt use his BiPAP. Pt refused at this time. RN aware.
[2023-06-16 03:57] LABS: Alanine Aminotransferase 18 IU/L (<50); Albumin 3.4 g/dL (3.5-5.0); Albumin Globulin Ratio 1.1 (1.0-2.8); Alkaline Phosphatase 58 U/L (38-126); Aspartate Aminotransferase 17 IU/L (17-59); BUN Creatinine Ratio 43.1 (6-22); Bilirubin Total 0.6 mg/dL (0.2-1.3); Blood Urea Nitrogen 47 mg/dL (9-20); Carbon Dioxide 35 mmol/L (22-32); Chloride 98 mmol/L (98-107); Estimated Glomerular Filt Rate > 60 mL/min (>60); Globulin 3.1 g/dL (1.7-4.1); Glucose 191 mg/dL (80-110); HEMOLYSIS < 15 (0-50); Potassium 3.1 mmol/L (3.4-5.1); Sodium 135 mmol/L (137-145); Total Protein 6.5 g/dL (6.3-8.2)
--- NOTE | 2023-06-16 04:06 | RT ---
Pt agreed to be placed back on BiPAP (mode AVAPs) at 0406 this morning. Pt tolerating well. RN notified.
[2023-06-16] MEDS: BUDESONIDE 0.5 MG/2 ML NEB INH ×2 (06:19→19:10)
--- NOTE | 2023-06-16 06:21 | RT ---
Nocturnal BiPAP use: Pt used the BiPAP from 0 to 4 and then again from 0406 to 0500, for a total of approx. 3 hours. He is back on room-air this morning. No apparent distress noted.
[2023-06-16] MEDS: SODIUM CHLORIDE 0.9% FLUSH 10 ML IV ×3 (06:33→20:12)
[2023-06-16] MEDS: LEVOTHYROXINE 75 MCG TABLET 150 MCG PO (06:33)
[2023-06-16] MEDS: POTASSIUM CHLORIDE 20 MEQ TAB 40 MEQ PO ×2 (08:35→14:22)
[2023-06-16] MEDS: ENOXAPARIN 40 MG/0.4 ML SYRINGE SUBCUT ×2 (08:35→20:12)
[2023-06-16] MEDS: FUROSEMIDE 20 MG TABLET PO (08:36)
[2023-06-16] MEDS: DULOXETINE 30 MG CAPSULE PO (08:36)
[2023-06-16] MEDS: PANTOPRAZOLE DR 40 MG TABLET PO ×2 (08:36→20:12)
[2023-06-16] MEDS: TAMSULOSIN 0.4 MG CAPSULE PO (08:36)
[2023-06-16] MEDS: ASPIRIN EC 325 MG TABLET PO (08:36)
--- NOTE | 2023-06-16 09:15 | PT.IPTN ---
Current Diagnoses Chronic obstructive pulmonary disease with (acute) exacerbation (06/12/23) Respiratory failure, unspecified, unspecified whether with hypoxia or hypercapnia (06/12/23) Physical Therapy Treatment Note M2 PT-IP Current Condition Start: 06/14/23 08:19 Freq: NEEDED Status: Active Protocol: Document 06/14/23 11:17 MB (Rec: 06/14/23 11:57 MB [id number]) Physical Therapy Current Condition Current Condition Evaluation Date 06/14/23 Treatment Diagnosis ARF, hypotension, CO2 retention M3 PT-IP Subjective Start: 06/14/23 08:19 Freq: NEEDED Status: Active Protocol: Document 06/16/23 09:33 TS (Rec: 06/16/23 09:42 TS [id number]) Subjective Physical Therapy Visit Type Type Treatment Note Visit Start Time 09:15 Visit Stop Time 09:31 Number of GAS METER REPAIR SUPERVISOR Visits 2 Physical Therapy Visit Comments Patient Comments Pt found resting in chair, Spo2 92% on RA, pt agreeable to PT. M4 PT-IP Mobility and Gait Start: 06/14/23 08:19 Freq: NEEDED Status: Active Protocol: Document 06/16/23 09:33 TS (Rec: 06/16/23 09:42 TS [id number]) PT-Transfer Assessment Sit to and From Stand Sit to and from Stand Standby Assistance Equipment Transfer Assistive Device Gait Belt Orthotic/Prosthetic Devices or Brace: No Comments Mobility Comments STS from chair SBA with use of arms of chair and bed for balance. He ambulated in hallway ~200'SBA with no AD, touches oropeza at times for balance. He performed stairs x12 ascending/descending, pt is SOB, Spo2 desats to 81%, increased to 88% after ~30secs . He ambulatd back to room, Spo2 90% on RA. pt was left in chair, all needs met. Gait Assessment Gait Gait Assistance Required: Standby Assistance Distance (Feet) 200 Able to Maintain Weight Bearing Status Yes During Gait Assistive Devices Assistive Device Gait Belt Orthotic/Prosthetic Devices or Brace: No Gait Deviations General Gait Pattern Decreased Stride Length, Decreased Feet Clearance, Flexed Trunk,Step-to Gait,Wide Based Gait Factors Limiting Gait Function Factors Limiting Gait Function Decreased Strength,Poor Balance,Respiratory Distress Comments Gait Comments See mobility comments Stair Climbing Assessment Evaluation Level of Assist On Stairs Standby Assistance Devices Stair Climbing Assistive Devices Left Railing,Right Railing Technique/Endurance Stair Climbing Direction Ascend and Descend Stair Climbing Technique Step to Step Number of Steps Climbed 12 Comments Stair Climbing Comments See mobility comments PT-Balance Assessment Sitting Balance and Reactions Static Sitting Balance Ability Good Dynamic Sitting Balance Ability Good Standing Balance and Reactions Static Standing Balance Ability Good Dynamic Standing Balance Ability Good Device Used RW M5 PT-IP Objective Assessments Start: 06/14/23 08:19 Freq: NEEDED Status: Active Protocol: Document 06/14/23 11:17 MB (Rec: 06/14/23 11:57 MB [id number]) Orientation Orientation/Cognition Level of Alertness Alert Orientation Name,Age,Birthday,Month,Date, Year,Day of Week,Place, Situation Language Function Ability No Deficits Noted Safety Awareness Decreased Safety Awareness Memory Description No Deficits Noted Gross Range of Motion Upper Extremity ROM Assessment Left Impaired Impairments Pt reports long history of left shoulder pain and problems, receiving PT and injections, he uses both arms well functionally for mobility Lower Extremity ROM Assessment Within Functional Limits Strength Upper Extremity Strength Assessment Left Impaired Lower Extremity Strength Assessment Within Functional Limits Other Assessments Other Other Assessments Pt's face is ashy and of abnormal color and pt states this is d/t excema M6 PT-IP Treatment Start: 06/14/23 08:19 Freq: NEEDED Status: Active Protocol: Document 06/16/23 09:33 TS (Rec: 06/16/23 09:42 [id number]) Physical Therapy Treatment Education Education Provided Safety M7 PT-IP Assessment and Plan Start: 06/14/23 08:19 Freq: NEEDED Status: Active Protocol: Document 06/16/23 09:33 TS (Rec: 06/16/23 09:42 [id number]) PT Summary Assessment and Plan Potential Rehabilitation Potential Fair Summary Impairments Pain,Bed Mobility,Transfers, Gait,Activity Tolerance Progress Towards Goals Progressing Toward Goals Assessment Summary Tanner continues to do well with his mobility. He is SBA for STS with no AD, tends to reach for bed rails and arms of chair to assist with balance. He ambulated ~200'SBA with no AD, occasionally reahces for oropeza for support. He continues to perform a flight of stairs with B handrails, Spo2 desats to 81%, increased to 88% on RA after ~30secs. PT is recommending pt return home with assist and HHPT. Goals Bed Mobility Goal Independent Transfer Goal Independent,Front Wheeled Walker,Four Wheeled Walker Gait Goal Independent,Front Wheel Walker ,Four Wheel Walker Gait Distance 100 Other Goals Pt will ascend and descend 2 steps with left rail and no more than superv assistance to allow safe home entrance. Days to Meet Goals 5 Frequency of Treatment Frequency Of Treatment Once a Day Treatment Plan Physical Therapy Treatment Plan Bed Mobility Training,Transfer Training,Gait Training, Therapeutic Exercise,Balance Retraining,Discharge Planning, Hot or Cold Pack Weight Bearing Status Weight Bearing Status Weight Bear as Tolerated Recommendations To Nursing Amount of Assist Needed Standby Assistance Discharge Recommendations PT Discharge Recommendations Home with Assistance,Home Health Transportation Needs at Discharge Private Vehicle
--- NOTE | 2023-06-16 11:18 | PM.PN.1 ---
Subjective Subjective Date Patient Seen: 06/16/23 Time Patient Seen: 11:18 Interval history: Patient seen in [facility] for Dr. Vargas. Seen in follow-up of COPD exacerbation respiratory failure and hypertension. Hypokalemia. Patient actually feeling pretty well today. No other changes. He has feeling no chest pain. Breathing comfortably. Used his nighttime support last night felt very well. No other change. Exam Vital Signs (past 8 hours): - 06/16/23 04:00 06/16/23 04:06 06/16/23 05:24 Temperature 98.4 F Pulse Rate 65 Respiratory Rate 22 Blood Pressure 167/78 H Pulse Oximetry 91 93 Oxygen Delivery Method BiPAP Oxygen Flow Rate 1 Fraction of Inspired Oxygen 24 06/16/23 06:19 06/16/23 07:00 06/16/23 08:00 Temperature 98.5 F Pulse Rate 64 64 Respiratory Rate 22 18 Blood Pressure 143/72 H Pulse Oximetry 91 95 Oxygen Delivery Method Room Air Room Air Oxygen Flow Rate 0 0 Fraction of Inspired Oxygen 21 06/16/23 08:00 Temperature Pulse Rate Respiratory Rate Blood Pressure Pulse Oximetry 92 Oxygen Delivery Method Room Air Oxygen Flow Rate Fraction of Inspired Oxygen Fraction of Inspired Oxygen 21 SaO2/FiO2 Ratio 433 Oxygen Delivery Method Room Air Oxygen Flow Rate 0 Narrative Exam Narrative: Alert obese male in no acute distress Lungs decreased breath sounds but no rhonchi or other changes. Heart is regular rate and rhythm. Abdomen is obese soft extremities without significant edema. Objective Labs 06/13/23 06:38 06/16/23 02:56 Labs: Laboratory Results - last 24 hr 06/13/23 06/16/23 Unknown 02:56 Sodium 135 L Potassium 3.1 L Chloride 98 Carbon Dioxide 35 H BUN 47 H Creatinine 1.09 Estimated GFR > 60 BUN/Creatinine Ratio 43.1 H Glucose 191 H Calcium 8.0 L Total Bilirubin 0.6 AST 17 ALT 18 Alkaline Phosphatase 58 Total Protein 6.5 Albumin 3.4 L Globulin 3.1 Albumin/Globulin Ratio 1.1 L.pneumophila Antigen Negative [facility] Medical History Acute hypercapnic respiratory failure Asthma Elevated d-dimer (~02/2020) Cellulitis (~02/2020) Unilateral primary osteoarthritis, right knee Olecranon bursitis of left elbow Former smoker Osteoarthritis Duodenal ulcer Gastric ulcer Essential hypertension Leukocytosis (01/19/11) Thrombocytosis (01/19/11) Obesity (01/19/11) Prostate cancer (2010) Eczema CTS (carpal tunnel syndrome) Weakness of right lower extremity (11/15/16) Low back pain of over 3 months duration (11/15/16) Acquired insufficiency of aortic valve (10/08/15) Hypothyroidism (08/21/14) Idiopathic peripheral neuropathy Cobalamin deficiency History of malignant neoplasm of prostate Chronic obstructive pulmonary disease (01/19/11) Surgical History History of arthroplasty of right knee (05/24/20) Status post cataract extraction of both eyes with insertion of intraocular lens Status post wrist surgery (2011) History of spinal fusion (2012) History of splenectomy (1975) Family History Brother Thyroid cancer Mother Breast cancer Father No problems noted. 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 Patient at 3.1. He is getting extra replacement 40 b.i.d.. Will continue and rechecked tomorrow. COPD exacerbation with respiratory failure. On steroids. Appears as if discharge will be tomorrow. Will switch to oral steroids today.. Patient AVAPS AE is due to arrive tomorrow. And would not be safe to send him home today. Otherwise will continue current medicines and follow from there. Hypothyroidism continue current meds. Hypertension. Overall stable. Continue current therapy. Disposition. Probable discharge tomorrow. 45 minutes spent chart review with the patient nursing dictation
--- NOTE | 2023-06-16 11:47 | CM.DPNOTE ---
DCP Note HEAD SULFIDE OPERATOR reviewed EMR. Per provider note, anticipate dc tomorrow. Switching to orals now, wants to keep another day minimum. Per previous CM notes, [facility] reviewing for RN/PT/OT/ARCHITECTURE DRAFTER. Per previous CM notes, no other anticipated needs. HEAD SULFIDE OPERATOR emailed Coni at [facility] with update. Plan: anticipate dc home tomorrow with [facility] to follow. likely transport with friends to assist as needed.. CM team will follow as needed. EDITH Weeks
[2023-06-16] MEDS: predniSONE 20 MG TABLET 60 MG PO (12:21)
[2023-06-16] MEDS: AZITHROMYCIN 250 MG TABLET PO (17:50)
--- NOTE | 2023-06-16 18:16 | PC.NURSE ---
Rec'd Pt transfer from ICU. Rec'd report from Cindy BECERRA. Pt A&0, follows commands, offers no overt complaint. Settling into bed and room easily.
[2023-06-16] MEDS: OXYCODONE IR 5 MG TABLET PO (20:13)
[2023-06-16] MEDS: ACETAMINOPHEN 325 MG TABLET 650 MG PO (20:13)
[2023-06-17] VITALS (9 sets, daily range): BP systolic 120–134; BP diastolic 64–78; PULSE 62–75; RESP 16–18; TEMP 36.1–36.8; O2SAT 88–92
[2023-06-17] MEDS: LEVOTHYROXINE 75 MCG TABLET 150 MCG PO (06:14)
[2023-06-17 06:33] LABS: BUN Creatinine Ratio 45.7 (6-22); Blood Urea Nitrogen 42 mg/dL (9-20); Carbon Dioxide 35 mmol/L (22-32); Chloride 101 mmol/L (98-107); Estimated Glomerular Filt Rate > 60 mL/min (>60); Glucose 110 mg/dL (80-110); HEMOLYSIS < 15 (0-50); Potassium 3.5 mmol/L (3.4-5.1); Sodium 134 mmol/L (137-145)
[2023-06-17] MEDS: ALBUTEROL/IPRATROPIUM 3 ML AMPUL INH ×4 (07:18→23:33)
[2023-06-17] MEDS: BUDESONIDE 0.5 MG/2 ML NEB INH ×2 (07:18→20:02)
[2023-06-17] MEDS: POTASSIUM CHLORIDE 20 MEQ TAB 40 MEQ PO (08:58)
[2023-06-17] MEDS: PANTOPRAZOLE DR 40 MG TABLET PO ×2 (08:58→21:05)
[2023-06-17] MEDS: ASPIRIN EC 325 MG TABLET PO (08:58)
[2023-06-17] MEDS: DULOXETINE 30 MG CAPSULE PO (08:58)
[2023-06-17] MEDS: FUROSEMIDE 20 MG TABLET PO (08:58)
[2023-06-17] MEDS: OXYCODONE IR 5 MG TABLET PO ×3 (08:58→23:31)
[2023-06-17] MEDS: SODIUM CHLORIDE 0.9% FLUSH 10 ML IV (08:59)
[2023-06-17] MEDS: TAMSULOSIN 0.4 MG CAPSULE PO (08:59)
[2023-06-17] MEDS: predniSONE 20 MG TABLET 60 MG PO (08:59)
[2023-06-17] MEDS: ENOXAPARIN 40 MG/0.4 ML SYRINGE SUBCUT ×2 (08:59→21:05)
--- NOTE | 2023-06-17 10:46 | PT.IPTN ---
Current Diagnoses Chronic obstructive pulmonary disease with (acute) exacerbation (06/12/23) Respiratory failure, unspecified, unspecified whether with hypoxia or hypercapnia (06/12/23) Physical Therapy Treatment Note M2 PT-IP Current Condition Start: 06/14/23 08:19 Freq: NEEDED Status: Active Protocol: Document 06/14/23 11:17 MB (Rec: 06/14/23 11:57 MB [id number]) Physical Therapy Current Condition Current Condition Evaluation Date 06/14/23 Treatment Diagnosis ARF, hypotension, CO2 retention M3 PT-IP Subjective Start: 06/14/23 08:19 Freq: NEEDED Status: Active Protocol: Document 06/17/23 10:17 MB (Rec: 06/17/23 10:46 MB [id number]) Subjective Physical Therapy Visit Type Type Treatment Note Visit Start Time 10:17 Visit Stop Time 10:40 Number of DJ INSTRUCTOR Visits 0 Physical Therapy Visit Comments Patient Comments Pt states that he thinks he is going home today if the breathing machine is there. Therapy Pain Assessment Pain When Pain Assessed At Rest Pain Present Pain Present Denied Pain M4 PT-IP Mobility and Gait Start: 06/14/23 08:19 Freq: NEEDED Status: Active Protocol: Document 06/17/23 10:17 MB (Rec: 06/17/23 10:46 MB [id number]) PT-Transfer Assessment Sit to and From Stand Sit to and from Stand Independent,Standby Assistance ,1 Person Assistance,Use of Upper Extremities Equipment Transfer Assistive Device Gait Belt Orthotic/Prosthetic Devices or Brace: No Comments Mobility Comments SBA for first transfer and then I for transfer from the chair Gait Assessment Gait Gait Assistance Required: Standby Assistance Distance (Feet) 200 Able to Maintain Weight Bearing Status Yes During Gait Assistive Devices Assistive Device Gait Belt Orthotic/Prosthetic Devices or Brace: No Gait Deviations General Gait Pattern Flexed Trunk,Wide Based Gait Factors Limiting Gait Function Factors Limiting Gait Function Poor Balance,Respiratory Distress Comments Gait Comments Pt with REED and O2 sats drop from 91% on RA at rest in sitting to 84% on RA with gait . At end of gait, PT encourages pt to work on slower exhale to improve CO2 blowing off and to improve O2 saturation. His sats increase to 94% within 1 minute of sitting and breathing Stair Climbing Assessment Evaluation Level of Assist On Stairs Standby Assistance Devices Stair Climbing Assistive Devices Left Railing,Right Railing Technique/Endurance Stair Climbing Direction Ascend and Descend Stair Climbing Technique Step to Step Number of Steps Climbed 3 Stair Climbing Set # Repetitions (reps) 1 Comments Stair Climbing Comments See mobility comments PT-Balance Assessment Sitting Balance and Reactions Static Sitting Balance Ability Good Dynamic Sitting Balance Ability Good Standing Balance and Reactions Static Standing Balance Ability Good Dynamic Standing Balance Ability Good M5 PT-IP Objective Assessments Start: 06/14/23 08:19 Freq: NEEDED Status: Active Protocol: Document 06/14/23 11:17 MB (Rec: 06/14/23 11:57 MB [id number]) Orientation Orientation/Cognition Level of Alertness Alert Orientation Name,Age,Birthday,Month,Date, Year,Day of Week,Place, Situation Language Function Ability No Deficits Noted Safety Awareness Decreased Safety Awareness Memory Description No Deficits Noted Gross Range of Motion Upper Extremity ROM Assessment Left Impaired Impairments Pt reports long history of left shoulder pain and problems, receiving PT and injections, he uses both arms well functionally for mobility Lower Extremity ROM Assessment Within Functional Limits Strength Upper Extremity Strength Assessment Left Impaired Lower Extremity Strength Assessment Within Functional Limits Other Assessments Other Other Assessments Pt's face is ashy and of abnormal color and pt states this is d/t excema M6 PT-IP Treatment Start: 06/14/23 08:19 Freq: NEEDED Status: Active Protocol: Document 06/17/23 10:17 MB (Rec: 06/17/23 10:46 MB [id number]) Physical Therapy Treatment Education Education Provided Safety Other Treatments Other Treatment Performed Education about breathing and benefits of slowing breathing, making a longer exhale than inhale to improve CO2 blowing off and to also increase O2 levels and he performs well, pursed-lip breathing preferred by pt with blowing off with exhale with pursed lips M7 PT-IP Assessment and Plan Start: 06/14/23 08:19 Freq: NEEDED Status: Active Protocol: Document 06/17/23 10:17 MB (Rec: 06/17/23 10:46 MB [id number]) PT Summary Assessment and Plan Potential Rehabilitation Potential Fair Summary Impairments Bed Mobility,Transfers,Gait, Activity Tolerance Progress Towards Goals Progressing Toward Goals Assessment Summary Tanner's O2 sats on RA drop to 84% with activity and increase with sitting and slower breathing with longer exhale, pt prefers pursed-lip compared to nasal breathing. Goals Bed Mobility Goal Independent Transfer Goal Independent Gait Goal Independent Gait Distance 200 Other Goals Pt will ascend and descend 2 steps with left rail and mod I . Days to Meet Goals 2 Frequency of Treatment Frequency Of Treatment Once a Day Treatment Plan Physical Therapy Treatment Plan Bed Mobility Training,Transfer Training,Gait Training, Therapeutic Exercise,Balance Retraining,Discharge Planning Weight Bearing Status Weight Bearing Status Weight Bear as Tolerated Recommendations To Nursing Amount of Assist Needed Standby Assistance Discharge Recommendations PT Discharge Recommendations Home with Assistance,Home Health Transportation Needs at Discharge Private Vehicle
--- NOTE | 2023-06-17 10:59 | P.DS_ITS ---
History of Present Illness History of Present Illness Date Patient Seen: 06/17/23 Time Patient Seen: 11:00 Date of Onset of Symptoms: 06/05/23 Chief complaint: COPD, short of breath, sent by Dr Vargas Narrative: Chief complaint: COPD, short of breath, sent by Dr Vargas Narrative: 72-year-old male seen in the clinic prior to admission who presented with about a week's worth of increasing cough some shortness of breath etcetera. Denied any true cold or flu symptoms no fever chills nausea vomiting. No recent travels, no change in medication, continued on his usual inhalers etcetera. No chest pain no palpitations denies any real PND but maybe some element of orthopnea ER evaluation demonstrates his persistent leukocytosis as well as significant hypoxia. He required initially 5+ L via nasal cannula to obtain an oxygen saturation of 90+ %, that has subsequently been turned down. Chest x-ray seem to demonstrate probable pneumonia with some element of congestive heart failure possibly present as well. No evidence of viral infection as RSV, COVID, and influenza swabs are negative Patient with a history of significant COPD as well as CO2 retention in fact required intubation little over year ago due to lack of respiratory drive secondary to oxygen replacement therapy when he presented with similar COPD exacerbation Discharge Providers Provider Date of admission: 06/12/23 17:16 Discharge Date: 06/17/23 Primary care physician: Blas Vargas MD Consults: 06/12/23 18:17 Consult to Cardio/Pulmonary Rehabilitation Routine Comment: Physician Instructions: Evaluate and treat Consult to Discharge Planning Routine Comment: 06/13/23 06:33 Consult to Tele-electromechanical equipment tester Routine Comment: Consulting Provider: Miguel Angel [employer] Reason for consultation: Title Searcher services 06/13/23 07:20 Consult to Tele-electromechanical equipment tester Routine Comment: Consulting Provider: Miguel Angel [employer] Reason for consultation: Title Searcher services 06/14/23 07:35 Consult to Physical Therapy Evaluate & Treat Comment: Physician Instructions: Evaluate and Treat 06/15/23 14:16 Consult to Home Health Routine Comment: Reason For Exam: Home health services upon discharge Discharge provider: Gustabo Green MD Summary Hospital Course Discharge Diagnosis: Respiratory failure. COPD exacerbation Elevated white count Hypothyroidism Hypokalemia Hypertension Hospital Course: Respiratory failure. Patient was admitted and O2 support was given. It was thought to be secondary to COPD exacerbation please see below for treatment course. 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 Was transferred to the CCU. BiPAP was began elevated bed and more aggressive respiratory therapy. Patient overall did well and was completely back to normal over the next of course of the next 2-3 days. Had no other significant new changes. Was felt to be secondary to primarily COPD exacerbation although there was a question of a pneumonia was not clearly defined. There was no cardiac abnormality. Patient will be sent home on steroids and will be followed closely by Dr. Vargas. COPD exacerbation. [place] to be overall cause of his admission. Patient rapidly declined. And was found to have a high carbon dioxide count and was felt to be a retainer. Watching his O2 was closely followed. He was transferred to the CCU he is placed on IV steroids and antibiotics and BiPAP. He rapidly improved over the course of the next 48 hours and was continuing to improve. Not quite at baseline on day of discharge. He is switch to oral steroids day before discharge. Seemed to do well. Certainly no decline. It was decided during his admission that he needed at home noninvasive intubation for nighttime at least and trilogy was ordered. Should be delivered today. Patient will use and is comfortable with that decision. He will follow up with Dr. Vargas 1 week. Elevated white count. Patient was placed on IV antibiotics during his admission for presumed community-acquired pneumonia. No pneumonia was definitively found. On imaging. He was continued on oral medication up until the day of discharge was felt that he was asymptomatic and was not definitively infected and felt that oral course was long enough for treatment and will not be sent home on antibiotics pretty be followed closely by PCP. Hypothyroidism. Stable. Will be discharged on usual meds. Hypokalemia. Patient was noted to be hyperkalemic on lab work. He was placed on oral replacement and was normal on day of discharge. He will be followed as an outpatient with recheck in [address] Ma. 47 minutes spent with chart review discussion with the patient nursing dictation orders Exam Vital Signs (past 8 hours): - 06/17/23 05:00 06/17/23 06:53 06/17/23 07:18 Temperature 97.2 F L Pulse Rate 65 64 Respiratory Rate 18 18 Blood Pressure 134/71 Pulse Oximetry 88 L 92 92 Oxygen Delivery Method Room Air Room Air Oxygen Flow Rate 0 0 Fraction of Inspired Oxygen 21 06/17/23 08:02 06/17/23 10:43 Temperature 98.2 F Pulse Rate 62 Respiratory Rate 16 Blood Pressure 130/78 Pulse Oximetry 91 Oxygen Delivery Method Room Air Oxygen Flow Rate 0 Fraction of Inspired Oxygen Fraction of Inspired Oxygen 21 SaO2/FiO2 Ratio 438 Oxygen Delivery Method Room Air Oxygen Flow Rate 0 Narrative Exam Narrative: Alert elderly obese male in no acute distress. Lungs clear with decreased breath sounds diffusely heart is regular rate and rhythm abdomen obese extremities without edema Objective Labs 06/13/23 06:38 06/17/23 06:00 Labs: Laboratory Results - last 24 hr 06/17/23 06:00 Sodium 134 L Potassium 3.5 Chloride 101 Carbon Dioxide 35 H BUN 42 H Creatinine 0.92 Estimated GFR > 60 BUN/Creatinine Ratio 45.7 H Glucose 110 Calcium 8.0 L PFSH Medical History Acute hypercapnic respiratory failure Asthma Elevated d-dimer (~02/2020) Cellulitis (~02/2020) Unilateral primary osteoarthritis, right knee Olecranon bursitis of left elbow Former smoker Osteoarthritis Duodenal ulcer Gastric ulcer Essential hypertension Leukocytosis (01/19/11) Thrombocytosis (01/19/11) Obesity (01/19/11) Prostate cancer (2010) Eczema CTS (carpal tunnel syndrome) Weakness of right lower extremity (11/15/16) Low back pain of over 3 months duration (11/15/16) Acquired insufficiency of aortic valve (10/08/15) Hypothyroidism (08/21/14) Idiopathic peripheral neuropathy Cobalamin deficiency History of malignant neoplasm of prostate Chronic obstructive pulmonary disease (01/19/11) Surgical History History of arthroplasty of right knee (05/24/20) Status post cataract extraction of both eyes with insertion of intraocular lens Status post wrist surgery (2011) History of spinal fusion (2012) History of splenectomy (1975) Family History Brother Thyroid cancer Mother Breast cancer Father No problems noted. 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: [employer] travel history: recent leisure activities: art, volunteer work and other Smoking Status: Former smoker Tobacco: How many years used: 15 Smokeless tobacco user: other quit status: quit date established second hand exposure: No alcohol intake: former substance use type: does not use Discharge Assessment & Plan Assessment and Plan Assessment: Improved trending towards normal Plan of Treatment: Discharge home with home health Discharge Plan Discharge Plan Patient Disposition: Home Health Service Discharge orders & Medications Prescriptions: New furosemide 20 mg Tablet 20 mg PO DAILY Qty: 90 0RF prednisone 20 mg tablet 60 mg PO DAILY Qty: 90 0RF Continued cyanocobalamin (vitamin B-12) 1,000 MCG tablet extended release 1,000 mcg PO QDAY Qty: 0 duloxetine 30 mg capsule,delayed release(DR/EC) 30 mg PO DAILY Qty: 90 3RF omeprazole 40 mg capsule,delayed release(DR/EC) 40 mg PO BID Qty: 60 11RF albuterol sulfate [Proventil HFA] 90 mcg/actuation HFA aerosol inhaler 2 puff INHALATION Q4HP PRN (Reason: shortness of breath or wheezing) Qty: 6 3RF Combivent Respimat 20-100 mcg/actuation mist 1 puff INHALATION BID Qty: 24 3RF Rx Instructions: space evenly during waking hours levothyroxine 150 mcg tablet 150 mcg PO DAILY Qty: 180 3RF Rx Instructions: take 1 tablet by mouth in the morning before eating/drinking potassium chloride [Klor-Con M20] 20 mEq tablet,ER particles/crystals 20 meq PO DAILY Qty: 180 3RF tamsulosin [Flomax] 0.4 mg capsule 0.4 mg PO DAILY Qty: 180 3RF diphenhydramine HCl [Allergy (diphenhydramine)] 25 mg capsule 25 mg PO Q4-6H PRN (Reason: Itching) Rx Instructions: when needed acetaminophen 325 mg Tablet 650 mg PO TID PRN (Reason: Pain, Mild) Qty: 60 0RF ibuprofen 400 mg Tablet 400 mg PO Q4HR PRN (Reason: pain, mild) Qty: 60 0RF cyclobenzaprine 10 mg tablet 10 mg PO ONCE PM PRN (Reason: prn) meloxicam 15 mg tablet 15 mg PO DAILY Discontinued chlorthalidone 25 mg tablet 50 mg PO QDAY Qty: 180 3RF lorazepam 0.5 mg tablet 0.5 mg PO BEDTIME PRN (Reason: sleep) Qty: 60 0RF No Action (DME) Disabled Parking See Rx Instructions .ROUTE .MEDSUPPLY Qty: 1 0RF Rx Instructions: Patient qualifies for disabled parking as per the attached form. Follow up/Referrals: Blas Vargas MD [Primary Care Provider] - 1 Week Diet/Activity/Treatments Diet: Diet as Tolerated and Low-sodium Visit Report/Discharge Packet Stand Alone Forms: Patient Portal/API, Stroke Signs & Symptoms Discharge Data Primary Care Provider: Blas Vargas
--- NOTE | 2023-06-17 11:18 | PC.NURSE ---
Patient up and ambulated in the halls with PT, he dropped to 84% but recovers fast and is up to 88%. He is resting in his chair comfortably. Coloring to face is dusky/goldberg. He is steady on his feet and independent in room. HR regular and bs cta, slightly decreased in bases. He is resting comfortably.
--- NOTE | 2023-06-17 11:38 | CM.DPC ---
Addendum entered by Evy Brown R.N. 06/17/23 13:58: Gave patient a copy of his IMM, patient may not go today due to not knowing if trilogy will arrive today, if not today, will be tomorrow, [employer] had been updated. Original Note: DCP Cont: Patient has discharge orders for home. Notes indicate that [facility] has been ordered for patient, face to face already scanned in, and orders. Called Coni Rahman at [facility] [facility] and let her know that patient is discharging home today, and sent an email. Will send DC Summary. Evy Brown RN/Gastroenterology Manager
[2023-06-17] MEDS: AZITHROMYCIN 250 MG TABLET PO (18:03)
[2023-06-18 02:00] VITALS: O2SAT 92
[2023-06-18 06:00] VITALS: O2SAT 93
[2023-06-18] MEDS: LEVOTHYROXINE 75 MCG TABLET 150 MCG PO (06:15)
[2023-06-18] MEDS: OXYCODONE IR 5 MG TABLET PO ×2 (06:19→09:22)
[2023-06-18] MEDS: BUDESONIDE 0.5 MG/2 ML NEB INH (07:19)
[2023-06-18] MEDS: ALBUTEROL/IPRATROPIUM 3 ML AMPUL INH (07:19)
[2023-06-18 07:23] VITALS: PULSE 68; RESP 18; O2SAT 93
[2023-06-18 08:00] VITALS: BP 119/80; PULSE 70; RESP 18; TEMP 36.8; O2SAT 94
--- NOTE | 2023-06-18 08:37 | PC.NURSE ---
Assess- Patient is comfortable and sleeping. Morphine drip is infusing at 8cc/hr. This has been helpful to patient. She is having some gurgling with breathing, and has [address] behind her left ear. Patient has an order for atropine drops, which will be given to patient now to see if this will help with drying up more secretions when she is breathing. Sons are on board with this as well. She is comfortable at this time.
[2023-06-18] MEDS: ENOXAPARIN 40 MG/0.4 ML SYRINGE SUBCUT (09:22)
[2023-06-18] MEDS: predniSONE 20 MG TABLET 60 MG PO (09:23)
[2023-06-18] MEDS: TAMSULOSIN 0.4 MG CAPSULE PO (09:23)
[2023-06-18] MEDS: DULOXETINE 30 MG CAPSULE PO (09:23)
[2023-06-18] MEDS: PANTOPRAZOLE DR 40 MG TABLET PO (09:23)
[2023-06-18] MEDS: SODIUM CHLORIDE 0.9% FLUSH 10 ML IV (09:23)
[2023-06-18] MEDS: ASPIRIN EC 325 MG TABLET PO (09:23)
[2023-06-18] MEDS: FUROSEMIDE 20 MG TABLET PO (09:23)
--- NOTE | 2023-06-18 10:04 | PT-IP ANOTE ---
Pt declines therapy this AM stating he'd rather save his energy for DC this afternoon.
--- NOTE | 2023-06-18 12:21 | CM.DPNOTE ---
DCP Note SHUCKER reviewed EMR. Pt has orders to dc today. Pt dc was delayed yesterday due to waiting on resp equip to be delivered to home. Pt left prior to being seen by this author. SHUCKER emailed Coni at [facility] to update on pt's dc today. F2f already scanned into chart, order in. Plan: home today with [facility] to follow. Cm team will follow as needed. EDITH Weeks
== END 2023-06-18 11:26 | disposition home health service (06) | DRG 190 ==
LOC: ED 16:12 → AC 17:16 → ICU 06-13 06:27 → AC 06-16 14:06
PROVIDERS: Family Medicine; Internal Medicine Critical Care Medicine; Internal Medicine Pulmonary Disease; Admitting Provider Internal Medicine; Emergency Provider Emergency Medicine; Family Provider Internal Medicine; PCP Internal Medicine; Referring Provider Emergency Medicine; Visit Provider Internal Medicine
DX: J44.1 Chronic obstructive pulmonary disease with (acute) exacerbation (principal); I50.31 Acute diastolic (congestive) heart failure; J96.21 Acute and chronic respiratory failure with hypoxia; J96.22 Acute and chronic respiratory failure with hypercapnia; J18.9 Pneumonia, unspecified organism; N17.9 Acute kidney failure, unspecified; I11.0 Hypertensive heart disease with heart failure; E03.9 Hypothyroidism, unspecified; R73.9 Hyperglycemia, unspecified; E87.6 Hypokalemia; D72.829 Elevated white blood cell count, unspecified; G60.9 Hereditary and idiopathic neuropathy, unspecified; N42.89 Other specified disorders of prostate; Z87.891 Personal history of nicotine dependence
CPT/HCPCS: 0241U; 36415; 36600; 71045; 80048; 80053; 82805; 82962; 83605; 83735; 83880; 84484; 85025; 85379; 85610; 87040; 87449; 87633; 87797; 93005; 93010; 93306; 94640; 94660; 94760; 94762; 96365; 96375; 97110; 97116; 97161; 99223; 99232; 99233; 99238; 99285; J0696; J1650; J1940; J2310; J2919; J7613

== ENCOUNTER 2023-09-17 09:03 | Inpatient (IN) | payer MEDICARE, SELFPAY ==
[2023-07-11 08:47] VITALS: PULSE 56; RESP 244; RESP 7; O2SAT 92; BMI 46.5
[2023-09-17] VITALS (23 sets, daily range): BP systolic 101–154; BP diastolic 54–92; PULSE 76–116; RESP 20–28; TEMP 31–36.7; O2SAT 74–93; BMI 50.3
--- NOTE | 2023-09-17 09:24 | DI.RAD.S_ITS ---
PROCEDURE: XR CHEST 1V INDICATIONS: shortness of breath TECHNIQUE: One view of the chest was acquired. COMPARISON: [facility], CR, XR CHEST 1V, 06/13/2023, 6:30. [facility], CR, XR CHEST 1V, 06/12/2023, 16:19. FINDINGS: Surgical changes and devices: ACDF Lungs and pleura: Prominent tissue markings bilaterally. Small bilateral pleural effusions. Mediastinum: Mediastinal contours appear normal. Heart size is enlarged. Bones and chest wall: No suspicious bony lesions. Overlying soft tissues appear unremarkable. IMPRESSION: Cardiomegaly with prominent interstitial markings, most consistent with pulmonary edema. Small bilateral pleural effusions. Dictated by: Daniel Malik M.D. on 09/17/2023 at 10:02 Approved by: Daniel Malik M.D. on 09/17/2023 at 10:03
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
[2023-09-17] MEDS: methylPREDNISolone 125 MG/2 ML VIAL IV (09:31)
[2023-09-17] MEDS: ALBUTEROL/IPRATROPIUM 3 ML AMPUL 9 ML INH (09:41)
[2023-09-17 09:42] LABS: PTT Partial Thromboplastin Tim 32 SECONDS (25.1-36.5)
[2023-09-17 09:44] LABS: Alanine Aminotransferase 18 IU/L (<50); Albumin 3.8 g/dL (3.5-5.0); Albumin Globulin Ratio 1.2 (1.0-2.8); Alkaline Phosphatase 74 U/L (38-126); Aspartate Aminotransferase 23 IU/L (17-59); BUN Creatinine Ratio 27.4 (6-22); Bilirubin Total 0.5 mg/dL (0.2-1.3); Blood Urea Nitrogen 26 mg/dL (9-20); Calcium 8.5 mg/dL (8.4-10.2); Carbon Dioxide 34 mmol/L (22-32); Chloride 105 mmol/L (98-107); Creatine Kinase 71 U/L (55-170); Estimated Glomerular Filt Rate > 60 mL/min (>60); Globulin 3.1 g/dL (1.7-4.1); Glucose 106 mg/dL (80-110); HEMOLYSIS 20 (0-50); Lipase 40 U/L (23-300); Potassium 4.8 mmol/L (3.4-5.1); Sodium 139 mmol/L (137-145); Total Protein 6.9 g/dL (6.3-8.2)
[2023-09-17 09:56] LABS: NT-proBNP (BNP-Adult 18+) 1240 pg/mL (<125); Troponin I < 0.012 ng/mL (0.01-0.034)
[2023-09-17 10:26] LABS: Add Manual Diff / Slide Review NO; Basophils Absolute Auto 100 /uL (0-100); Basophils Percent Auto 0.6 % (0-2); Eosinophils Absolute Auto 600 /uL (0-450); Eosinophils Percent Auto 3.6 % (2-4); Hematocrit 39.2 % (41-53); Hemoglobin 12.3 g/dL (13.5-17.5); Lymphocytes Absolute Auto 2400 /uL (1100-4500); Lymphocytes Percent Auto 14.4 % (25-40); Mean Corpuscular HGB Conc 31.3 % (30-36); Mean Corpuscular Hemoglobin 28.4 PG (26-34); Mean Corpuscular Volume 90.7 fL (80-100); Monocytes Absolute Auto 2700 /uL (0-900); Monocytes Percent Auto 15.7 % (3-14); Neutrophils Absolute Auto 11100 /uL (1500-7000); Neutrophils Percent Auto 65.7 % (50-75); Platelet Count 445 X10^3/uL (150-400); Red Blood Cell Count 4.33 X10^6/uL (4.5-5.9); Red Cell Distribution Width 15.1 % (11.6-14.8)
--- NOTE | 2023-09-17 10:51 | PM.HP.1 ---
History of Present Illness History of Present Illness Date Patient Seen: 09/17/23 Time Patient Seen: 10:51 Chief complaint: Low O2 Narrative: 72-year-old male with severe COPD and history of hypercapnic respiratory failure who presented to the [facility] Emergency Department with an oxygen saturation in the mid 70s. He is reporting increased shortness of breath at home. Does not have oxygen at home, but does have a noninvasive ventilator at home that he uses. Denies any fever chills no increased cough sputum production etcetera Patient's chest x-ray shows maybe borderline pulmonary edema, does have a minimally elevated BNP as well. White count also somewhat elevated. He has recently completed a tapering course of prednisone (probably about a month ago). Followed by Pulmonary Medicine here at [facility] as well as myself. Last PFTs done elsewhere demonstrated an FEV1 of 0.93 L in FEV1/FVC ratio of 0.48. [place] to have a combination of asthma and COPD. Does have an elevated eosinophilic count and is under evaluation for possible eosinophilic asthma etcetera. Testing not complete [facility] Medical History Acute hypercapnic respiratory failure Asthma Elevated d-dimer (~02/2020) Cellulitis (~02/2020) Unilateral primary osteoarthritis, right knee Olecranon bursitis of left elbow Former smoker Osteoarthritis Duodenal ulcer Gastric ulcer Essential hypertension Leukocytosis (01/19/11) Thrombocytosis (01/19/11) Obesity (01/19/11) Prostate cancer (2010) Eczema CTS (carpal tunnel syndrome) Weakness of right lower extremity (11/15/16) Low back pain of over 3 months duration (11/15/16) Acquired insufficiency of aortic valve (10/08/15) Hypothyroidism (08/21/14) Idiopathic peripheral neuropathy Cobalamin deficiency History of malignant neoplasm of prostate Chronic obstructive pulmonary disease (01/19/11) Surgical History History of arthroplasty of right knee (05/24/20) Status post cataract extraction of both eyes with insertion of intraocular lens Status post wrist surgery (2011) History of spinal fusion (2012) History of splenectomy (1975) Family History Brother Thyroid cancer Mother Breast cancer Father No problems noted. 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: [employer] travel history: recent leisure activities: art, volunteer work and other Smoking Status: Former smoker Tobacco: How many years used: 15 Smokeless tobacco user: other quit status: quit date established second hand exposure: No alcohol intake: former substance use type: does not use Meds Home Medications and Allergies Home Medications Medication Instructions Recorded Confirmed Type cyanocobalamin (vitamin B-12) 1,000 mcg PO DAILY ##0 04/04/17 09/17/23 History 1,000 mcg tablet,extended release diphenhydramine HCl 25 mg capsule 25 mg PO Q4H PRN Itching 09/14/17 09/17/23 History (Allergy (diphenhydramine)) acetaminophen 325 mg tablet 650 mg (2 x 325 mg) PO TID PRN 03/31/21 09/17/23 Rx Pain, Mild #60 tabs Disabled Parking #1 ea 06/08/22 09/17/23 Rx albuterol sulfate 90 mcg/actuation 2 puff inhalation Q4HP PRN 12/08/22 09/17/23 Rx aerosol inhaler (Proventil HFA) shortness of breath or wheezing #6 ea levothyroxine 150 mcg tablet 150 mcg PO DAILY #180 tabs 12/08/22 09/17/23 Rx potassium chloride 20 mEq 20 meq PO DAILY #180 tabs 12/08/22 09/17/23 Rx tablet,extended release(part/cryst) (Klor-Con M) tamsulosin 0.4 mg capsule (Flomax) 0.4 mg PO DAILY #180 caps 12/08/22 09/17/23 Rx meloxicam 15 mg tablet 15 mg PO DAILY #90 tabs 06/26/23 09/17/23 Rx fluticasone 250 mcg-salmeterol 50 1 inh inhalation BID Shortness of 07/13/23 09/17/23 Rx mcg/dose blistr powdr for breath #60 ea inhalation (Advair Diskus) fluticasone furoate 200 1 inh inhalation DAILY #60 ea 08/22/23 09/17/23 Rx mcg-vilanterol 25 mcg/dose inhalation powder (Breo Ellipta) albuterol sulfate 2.5 mg/3 mL 2.5 mg inhalation Q12H PRN 09/17/23 09/17/23 History (0.083 %) solution for nebulization respiratory distress chlorthalidone 25 mg tablet 50 mg PO DAILY 09/17/23 09/17/23 History cyclobenzaprine 10 mg tablet 10 mg PO BEDTIME PRN Spasms 09/17/23 09/17/23 History omeprazole 40 mg PO 06 09/17/23 09/17/23 History Allergies Allergy/AdvReac Type Severity Reaction Status Date / Time crab [CRAB] Allergy Severe Throat Verified 08/07/23 13:37 swelling animal dander [ANIMAL DANDER] Allergy Mild Sinus Verified 08/07/23 13:37 congestion, itching, eczema pollen extracts Allergy Unknown Sinus Verified 08/07/23 13:37 [POLLEN EXTRACTS] congestion, itching, eczema Review of Systems Review of Systems ROS: Yes All systems reviewed with the patient and are negative except as otherwise documented Exam Vital Signs (past 8 hours): - 09/17/23 09:10 09/17/23 09:30 Temperature 98.1 F Pulse Rate 116 H 104 H Respiratory Rate 28 H 26 H Blood Pressure 127/62 121/72 Pulse Oximetry 74 L 90 L Oxygen Delivery Method Room Air Nasal Cannula Oxygen Flow Rate 3 Oxygen Delivery Method Nasal Cannula Oxygen Flow Rate 3 Narrative Exam Narrative: Elderly male with coarse crackles sitting in hospital bed HEENT-unremarkable Lungs-diminished breath sounds with prolonged end expiratory wheezing and coarse crackles that seem to clear with coughing Heart-tachycardic but regular rate and rhythm Abdomen-positive bowel tones so obesity limits exam otherwise Objective Labs 09/17/23 09:53 09/17/23 09:22 Labs: Laboratory Results - last 24 hr 09/17/23 09/17/23 09:22 09:53 WBC 17.0 H RBC 4.33 L Hgb 12.3 L Hct 39.2 L MCV 90.7 MCH 28.4 MCHC 31.3 RDW 15.1 H Plt Count 445 H Neut % (Auto) 65.7 Lymph % (Auto) 14.4 L [place] % (Auto) 15.7 H Eos % (Auto) 3.6 Baso % (Auto) 0.6 Neut # (Auto) 09406 H Lymph # (Auto) 2400 [place] # (Auto) 2700 H Eos # (Auto) 600 H Baso # (Auto) 100 PT 12.0 INR 1.0 APTT 32 Sodium 139 Potassium 4.8 Chloride 105 Carbon Dioxide 34 H BUN 26 H Creatinine 0.95 Estimated GFR > 60 BUN/Creatinine Ratio 27.4 H Glucose 106 Calcium 8.5 Total Bilirubin 0.5 AST 23 ALT 18 Alkaline Phosphatase 74 Total Creatine Kinase 71 Troponin I < 0.012 NT-Pro-B Natriuret Pep 1240 H Total Protein 6.9 Albumin 3.8 Globulin 3.1 Albumin/Globulin Ratio 1.2 Lipase 40 Assessment & Plan Assessment & Plan narrative: 1. Acute hypoxic respiratory failure-likely secondary to COPD. Will place on oxygen but be very cautious about possible suppression of his respiratory drive given his prior history. Oxygen saturation of about 88-89% would be ideal. Etiology likely to be primarily exacerbation of chronic lung disease but also possibly congestive heart failure/volume overload. 2. Acute COPD exacerbation-patient will benefit from frequent nebulizer treatments IV steroids etcetera. Not clear whether he has an infectious etiology here or not. I think you would more likely benefit from antibiotic therapy than be harmed in so I will initiate azithromycin as well for possible infectious etiology causing his COPD exacerbation 3. Acute congestive heart failure with preserved left ventricular function-patient's most recent echo in June of this year demonstrated normal left ventricular function. He has had evidence of congestive heart failure in the past including a BNP as high as 6000+ previously. Currently he has not at baseline with his BNP but not in the 6000 range. Chest x-ray does suggest possible volume overload in so I think he would benefit from some parental Lasix which is already been given in the ER and perhaps continue that in the hospital. For now plan to continue his usual oral dose of Lasix, but follow his clinical course 4. Hypertension-patient's blood pressure seems well controlled no change in meds 5. Hypothyroidism-continue patient's usual thyroid replacement therapy 6. Chronic leukocytosis-patient with chronic leukocytosis of uncertain etiology. 7. Obesity-patient morbidly obese with BMI of 49. This will complicate all aspects of his medical care including complicating his respiratory status but ability to get him up out of bed basics of personal hygiene etcetera 8. Code status-patient has previously requested full code in the event of a sudden cardiac or respiratory arrest which is verified for this admission 9. VTE prophylaxis-patient would benefit from Lovenox as well as SCDs for VTE prevention. PROFEE Charge Codes Initial inpatient/observation care: [id number]
[2023-09-17] MEDS: FUROSEMIDE 40 MG/4 ML VIAL IV ×2 (10:54→23:43)
[2023-09-17 11:01] LABS: Adenovirus Not Detected (Not Detect); B. parapertussis Not Detected (Not Detecte); Bordetella pertussis Not Detected (Not Detect); Chlamydophila pneumoniae Not Detected (Not Detect); Coronavirus 229E Not Detected (Not Detect); Coronavirus HKU1 Not Detected (Not Detect); Coronavirus NL 63 Not Detected (Not Detect); Coronavirus OC43 Not Detected (Not Detect); Human Metapneumovirus Not Detected (Not Detect); Human Rhinovirus/Enterovirus Not Detected (Not Detect); Influenza A Not Detected (Not Detect); Influenza A(No subj detected) Not Detected (Not Detect); Influenza B Not Detected (Not Detect); Mycoplasma pneumoniae Not Detected (Not Detect); Parainfluenza Virus 1 Not Detected (Not Detect); Parainfluenza Virus 2 Not Detected (Not Detect); Parainfluenza Virus 3 Not Detected (Not Detect); Parainfluenza Virus 4 Not Detected (Not Detect); Respiratory Syncytial Virus Not Detected (Not Detect); SARS- CoV-2 Not Detected (Not Detecte)
[2023-09-17] MEDS: methylPREDNISolone 125 MG/2 ML VIAL 80 MG IV ×3 (13:07→23:42)
[2023-09-17] MEDS: AZITHROMYCIN 500 MG in DEXTROSE 5% IN WATER 250 ML 250 MG IV (13:07)
--- NOTE | 2023-09-17 13:46 | P.EN_ITS ---
Event Note Date Patient Seen: 09/17/23 Time Patient Seen: 13:46 Event Note (Rapid Response, Code, or fall): Patient was apparently doing well per nursing staff 1 was found to be minimally if at all responsive seem to have increased difficulty breathing. Was sternal rub patient became somewhat responsive. Vital signs are okay including blood pressure and heart rate. He persisted with minimal tachycardia. ABG was ordered and not yet available at time of this dictation On exam patient had very much diminished breath sounds especially compared to previous. Coarse crackles throughout. Patient not at all responsive for me. Did not seem to respond to pain when left arm was used to access for ABG Overall this seems most consistent to me with persistent hypercapnic respiratory failure. Very similar to what happened with him previously. Previously he required intubation. For now we will transfer him to the ICU and start him on BiPAP. If he fails to improve over a relatively short time with that than he may well need intubation this time as well I will also ask the tele community service representative to assist in management of his care while in the ICU specially given the potential need for intubation for his COPD/respiratory failure.
--- NOTE | 2023-09-17 14:02 | PC.NURSE ---
Patient arrived to room 216 from the ED at 1125 this a.m. At this time he is A&Ox4, able to tolerate ambulating short distances from w/ch to bed, uses urinal and changes into hospital gown. He is oriented to the room and denies pain or discomfort. Patient is settled into bed and at 1230 is snoring loudly, asleep. Upon reassessment at 1300 patient is difficult to wake up. Upon hanging IV antibiotics float nurse alerts primary nurse that he is deeply asleep difficult to wake up. RN at bedside evaluating patient and find him to be dusky goldberg and diaphoretic, although 02 sats 92% BP 152/90 HR 118.MD Vargas notified and RT notfied. STAT ABG ordered. BG 174. MD Vargas arrived to bedside and ordered patient to be transferred to ICU at 1350. He is transferred to room 227 via bed.
--- NOTE | 2023-09-17 14:23 | P.TELICUCN_ITS ---
History of Present Illness Consult details IF CAMERA ACTIVATED, patient seen via real-time interactive audiovisual communication: Camera activated Chief complaint: Low O2 Reason for consult: Acute hypoxemia respiratory failure Requesting provider: Blas Vargas Consent obtained for tele-stripper and opaquer apprentice care: Yes Patient Location: ICU Provider location (State): [place] Other participants/roles: Dr. Vargas and bedside RN Narrative: Patient is a 72 year old male with history of COPD who presents with worsening shortness of breath. No reported fever/chills or productive cough. On presentation, CXR showed bilateral cephalization and he was placed on supplemental O2. Started on lasix and solumedrol. While on the floor he deteriorated requiring AVAPS and transferred to ICU for further management. On arrival to ICU he is on AVAPS and following commands. IVF stopped and continue lasix and solumedrol. [facility] Medical History Acute hypercapnic respiratory failure Asthma Elevated d-dimer (~02/2020) Cellulitis (~02/2020) Unilateral primary osteoarthritis, right knee Olecranon bursitis of left elbow Former smoker Osteoarthritis Duodenal ulcer Gastric ulcer Essential hypertension Leukocytosis (01/19/11) Thrombocytosis (01/19/11) Obesity (01/19/11) Prostate cancer (2010) Eczema CTS (carpal tunnel syndrome) Weakness of right lower extremity (11/15/16) Low back pain of over 3 months duration (11/15/16) Acquired insufficiency of aortic valve (10/08/15) Hypothyroidism (08/21/14) Idiopathic peripheral neuropathy Cobalamin deficiency History of malignant neoplasm of prostate Chronic obstructive pulmonary disease (01/19/11) Surgical History History of arthroplasty of right knee (05/24/20) Status post cataract extraction of both eyes with insertion of intraocular lens Status post wrist surgery (2011) History of spinal fusion (2012) History of splenectomy (1975) Family History Brother Thyroid cancer Mother Breast cancer Father No problems noted. 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: [employer] travel history: recent leisure activities: art, volunteer work and other Smoking Status: Former smoker Tobacco: How many years used: 15 Smokeless tobacco user: other quit status: quit date established second hand exposure: No alcohol intake: former substance use type: does not use Current Medications Current Medications Medications: Home Medications cyanocobalamin (vitamin B-12) 1,000 mcg tablet,extended release 1,000 mcg PO DAILY ##0 04/04/17 [History Confirmed 09/17/23] diphenhydramine HCl 25 mg capsule (Allergy (diphenhydramine)) 25 mg PO Q4H PRN Itching 09/14/17 [History Confirmed 09/17/23] acetaminophen 325 mg tablet 650 mg (2 x 325 mg) PO TID PRN Pain, Mild #60 tabs 03/31/21 [Rx Confirmed 09/17/23] Disabled Parking #1 ea 06/08/22 [Rx Confirmed 09/17/23] albuterol sulfate 90 mcg/actuation aerosol inhaler (Proventil HFA) 2 puff inhalation Q4HP PRN shortness of breath or wheezing #6 ea 12/08/22 [Rx Confirmed 09/17/23] levothyroxine 150 mcg tablet 150 mcg PO DAILY #180 tabs 12/08/22 [Rx Confirmed 09/17/23] potassium chloride 20 mEq tablet,extended release(part/cryst) (Klor-Con M) 20 meq PO DAILY #180 tabs 12/08/22 [Rx Confirmed 09/17/23] tamsulosin 0.4 mg capsule (Flomax) 0.4 mg PO DAILY #180 caps 12/08/22 [Rx Confirmed 09/17/23] meloxicam 15 mg tablet 15 mg PO DAILY #90 tabs 06/26/23 [Rx Confirmed 09/17/23] fluticasone 250 mcg-salmeterol 50 mcg/dose blistr powdr for inhalation (Advair Diskus) 1 inh inhalation BID Shortness of breath #60 ea 07/13/23 [Rx Confirmed 09/17/23] fluticasone furoate 200 mcg-vilanterol 25 mcg/dose inhalation powder (Breo Ellipta) 1 inh inhalation DAILY #60 ea 08/22/23 [Rx Confirmed 09/17/23] albuterol sulfate 2.5 mg/3 mL (0.083 %) solution for nebulization 2.5 mg inhalation Q12H PRN respiratory distress 09/17/23 [History Confirmed 09/17/23] chlorthalidone 25 mg tablet 50 mg PO DAILY 09/17/23 [History Confirmed 09/17/23] cyclobenzaprine 10 mg tablet 10 mg PO BEDTIME PRN Spasms 09/17/23 [History Confirmed 09/17/23] omeprazole 40 mg PO 06 09/17/23 [History Confirmed 09/17/23] Visit Medications (administered) Generic Name Dose Route Start Last Admin Trade Name Freq PRN Reason Stop Dose Admin Azithromycin 500 mg/ Dextrose 250 mls @ 250 mls/hr 09/17/23 11:34 09/17/23 13:07 IV 250 mls/hr Q24H MANAN Administration Methylprednisolone 80 mg 09/17/23 12:00 09/17/23 13:07 Methylprednisolone 125 Mg/2 Ml Vial IV 80 mg Q6HR MANAN Administration Exam Vital Signs (past 8 hours): - 09/17/23 09:10 09/17/23 09:30 09/17/23 09:30 Temperature 98.1 F Pulse Rate 116 H 104 H 106 H Respiratory Rate 28 H 26 H 22 Blood Pressure 127/62 121/72 121/72 Pulse Oximetry 74 L 90 L 88 L Oxygen Delivery Method Room Air Nasal Cannula Oxygen Flow Rate 3 09/17/23 10:00 09/17/23 10:30 09/17/23 10:53 Temperature Pulse Rate 96 H 103 H 101 H Respiratory Rate 24 23 21 Blood Pressure 128/90 134/76 134/76 Pulse Oximetry 83 L 88 L 91 Oxygen Delivery Method Nasal Cannula Oxygen Flow Rate 3 09/17/23 12:00 09/17/23 12:00 09/17/23 13:25 Temperature 98.0 F Pulse Rate 106 H 107 H Respiratory Rate 22 20 Blood Pressure 131/81 150/92 H Pulse Oximetry 93 88 L Oxygen Delivery Method Nasal Cannula Oxygen Flow Rate 3 3 Oxygen Delivery Method Nasal Cannula Oxygen Flow Rate 3 Narrative Exam Narrative: On AVAPS and following commands Objective Labs 09/17/23 09:53 09/17/23 09:22 Labs: Laboratory Results - last 24 hr 09/17/23 09/17/23 09:22 09:53 WBC 17.0 H RBC 4.33 L Hgb 12.3 L Hct 39.2 L MCV 90.7 MCH 28.4 MCHC 31.3 RDW 15.1 H Plt Count 445 H Neut % (Auto) 65.7 Lymph % (Auto) 14.4 L [place] % (Auto) 15.7 H Eos % (Auto) 3.6 Baso % (Auto) 0.6 Neut # (Auto) 15597 H Lymph # (Auto) 2400 [place] # (Auto) 2700 H Eos # (Auto) 600 H Baso # (Auto) 100 PT 12.0 INR 1.0 APTT 32 Sodium 139 Potassium 4.8 Chloride 105 Carbon Dioxide 34 H BUN 26 H Creatinine 0.95 Estimated GFR > 60 BUN/Creatinine Ratio 27.4 H Glucose 106 Calcium 8.5 Total Bilirubin 0.5 AST 23 ALT 18 Alkaline Phosphatase 74 Total Creatine Kinase 71 Troponin I < 0.012 NT-Pro-B Natriuret Pep 1240 H Total Protein 6.9 Albumin 3.8 Globulin 3.1 Albumin/Globulin Ratio 1.2 Lipase 40 Chlamy pneumoniae PCR Not detected Adenovirus (PCR) Not detected B.parapertussis DNA PCR Not detected Coronavirus OC43 (PCR) Not detected Coronavirus HKU1 (PCR) Not detected Coronavirus 229E (PCR) Not detected SARS-CoV-2 (PCR) Not detected Coronavirus NL63 (PCR) Not detected Human Metapneumovir PCR Not detected Influenza A (PCR) Not detected Influenza Type A (PCR) Not detected Influenza Type B (PCR) Not detected M. pneumoniae (PCR) Not detected Parainfluenza 1 (PCR) Not detected Parainfluenza 2 (PCR) Not detected Parainfluenza 3 (PCR) Not detected Parainfluenza 4 (PCR) Not detected RSV (PCR) Not detected Entero/Rhino (PCR) Not detected Assessment & Plan Assessment & Plan narrative: NeURO: -- Seek PT/OT and OOB as tolerated RESP: # Acute hypoxemia respiratory failure -- Secondary to volume overload and AECOPD -- Added lasix 40 mg IV q12hr -- Strict I/O -- ON AVAPS -- HOB elevation -- Aspiration precaution -- Trend ABG -- Goal SPO2 > 88% # AECOPD -- On solumedrol and duoneb CVS: # Acute CHF exacerbation -- On lasix 40 IV BID -- IVF stopped -- Strict I/O -- Low Na diet -- Check TTE ID: -- Viral panel negative -- No infectious source identified -- Monitor off abx ENDO: -- Goal BS < 180 D/w bedside RN. Time Spent With Patient Time with patient: 30 to 49 minutes with 50% spent counseling/coordinating care
[2023-09-17 14:35] LABS: PCO2 ABG 115.2 mmHg (35-45); PO2 ABG 48 mmHg (80-100)
[2023-09-17 14:36] LABS: Allen Test for ABG Passed? Yes, Passed; Blood Gas Collection Site Left Radial; Fractionated Inspired Oxygen 28; HCO3 ABG 37 mmol/L (23-27); TCO2 ABG 40 mmol/L (23-27)
[2023-09-17 14:37] LABS: Oxygen Saturation ABG 65 % (95-100); pH ABG 7.11 (7.35-7.45)
[2023-09-17 16:15] LABS: Fractionated Inspired Oxygen 30; HCO3 ABG 37 mmol/L (23-27); Oxygen Saturation ABG 86 % (95-100); PCO2 ABG 88.8 mmHg (35-45); PO2 ABG 64 mmHg (80-100); TCO2 ABG 40 mmol/L (23-27)
[2023-09-17 16:16] LABS: Allen Test for ABG Passed? Yes, Passed; Blood Gas Collection Site Left Radial; pH ABG 7.23 (7.35-7.45)
[2023-09-17] MEDS: ALBUTEROL 2.5 MG/3 ML NEB (ADULT) INH (16:20)
--- NOTE | 2023-09-17 16:22 | PC.NURSE ---
Pt transported to ICU, placed on BiPAP by RT, second IV started. Pt diaphoretic and dusky-colored. Placed on telemetry, sinus tach. BP elevated 150s/90s. Alert to self only. O2 92% BP improved 106/56 MAP 78. Brothers Vaughn and Blas updated. Care ongoing, will continue to monitor.
[2023-09-17 17:44] LABS: PCO2 ABG 86.7 mmHg (35-45); PO2 ABG 71 mmHg (80-100)
[2023-09-17 17:45] LABS: Allen Test for ABG Passed? Yes, Passed; Blood Gas Collection Site Left Radial; Fractionated Inspired Oxygen 30; HCO3 ABG 36 mmol/L (23-27); Oxygen Saturation ABG 89 % (95-100); TCO2 ABG 39 mmol/L (23-27)
[2023-09-17 17:46] LABS: pH ABG 7.23 (7.35-7.45)
[2023-09-17] MEDS: ALBUTEROL/IPRATROPIUM 3 ML AMPUL INH ×2 (19:12→22:24)
[2023-09-17] MEDS: BUDESONIDE 0.5 MG/2 ML NEB INH (19:12)
--- NOTE | 2023-09-17 20:33 | P.ICUMDRN_ITS ---
- Date Patient Seen: 09/17/23 :: This patient was seen via real time interactive two-way audiovisual telecommunic ation. Note: Repeat ABG showed acute on chronic hypercarbia respiratory failure. Currently being diurese and on solumedrol. Patient is awake and following commands. Will continue current management and monitor clinically. Advised RN to obtain stat ABG if develop encephalopathy.
[2023-09-17] MEDS: PANTOPRAZOLE DR 40 MG TABLET PO (20:54)
[2023-09-17 22:11] LABS: MRSA (Nasal) PCR NOT DETECTED (Not Detect)
[2023-09-18] VITALS (23 sets, daily range): BP systolic 101–157; BP diastolic 57–85; PULSE 70–106; RESP 16–34; TEMP 31–37.4; O2SAT 84–96; BMI 49.0
[2023-09-18] MEDS: ACETAMINOPHEN 325 MG TABLET 650 MG PO (02:05)
[2023-09-18 05:38] LABS: BUN Creatinine Ratio 30.8 (6-22); Blood Urea Nitrogen 36 mg/dL (9-20); Calcium 8.7 mg/dL (8.4-10.2); Carbon Dioxide 36 mmol/L (22-32); Chloride 101 mmol/L (98-107); Estimated Glomerular Filt Rate > 60 mL/min (>60); Glucose 173 mg/dL (80-110); HEMOLYSIS < 15 (0-50); Sodium 139 mmol/L (137-145)
[2023-09-18] MEDS: ALBUTEROL/IPRATROPIUM 3 ML AMPUL INH ×5 (06:21→23:02)
[2023-09-18] MEDS: BUDESONIDE 0.5 MG/2 ML NEB INH ×2 (06:21→18:57)
[2023-09-18] MEDS: LEVOTHYROXINE 100 MCG TABLET 150 MCG PO (07:14)
[2023-09-18] MEDS: methylPREDNISolone 125 MG/2 ML VIAL 80 MG IV ×3 (07:15→17:20)
--- NOTE | 2023-09-18 07:18 | PM.PN.1 ---
Subjective Subjective Date Patient Seen: 09/18/23 Time Patient Seen: 07:18 Interval history: Patient appears to be clinically stable on BiPAP overnight Maintaining oxygen saturation high 80s very low 90s. Did have 12 50 out in urine yesterday. Continues on parental diuretics as per tele floors buffer. This morning he is much more awake and alert and [facility] He also tells me the weekend before admission he actually went to [facility] for a stem cell treatment, which he is done multiple times in effort to make his neuropathy and arthritis better and in this case was hoping it would make his lungs better. Exam Vital Signs (past 8 hours): - 09/17/23 23:47 09/18/23 00:17 09/18/23 00:18 Temperature 98 F Pulse Rate 96 H 87 Respiratory Rate 22 22 Blood Pressure 115/57 L 101/61 Pulse Oximetry 86 L 90 L Fraction of Inspired Oxygen 27 27 09/18/23 00:51 09/18/23 01:00 09/18/23 02:00 Temperature Pulse Rate 85 100 H Respiratory Rate 30 H 23 Blood Pressure 105/59 L 121/73 129/71 Pulse Oximetry 90 L 92 Fraction of Inspired Oxygen 30 27 27 09/18/23 03:19 09/18/23 04:00 09/18/23 04:49 Temperature Pulse Rate 106 H Respiratory Rate 34 H Blood Pressure 129/71 112/59 L 112/59 L Pulse Oximetry 94 Fraction of Inspired Oxygen 30 27 30 09/18/23 05:00 09/18/23 06:00 09/18/23 06:00 Temperature 97.6 F Pulse Rate 84 89 Respiratory Rate 21 32 H Blood Pressure 108/69 129/62 Pulse Oximetry 84 L 88 L Fraction of Inspired Oxygen 27 27 09/18/23 06:21 Temperature Pulse Rate Respiratory Rate Blood Pressure 129/62 Pulse Oximetry Fraction of Inspired Oxygen 30 Fraction of Inspired Oxygen 30 Oxygen Delivery Method BiPAP Oxygen Flow Rate 30 Narrative Exam Narrative: Vastly improved air movement still with persistent end expiratory wheezing Objective Labs 09/17/23 09:53 09/18/23 04:20 Labs: Laboratory Results - last 24 hr 09/17/23 09/17/23 09/17/23 09:22 09:53 13:46 WBC 17.0 H RBC 4.33 L Hgb 12.3 L Hct 39.2 L MCV 90.7 MCH 28.4 MCHC 31.3 RDW 15.1 H Plt Count 445 H Neut % (Auto) 65.7 Lymph % (Auto) 14.[address] [place] % (Auto) 15.7 H Eos % (Auto) 3.6 Baso % (Auto) 0.6 Neut # (Auto) 33466 H Lymph # (Auto) 2400 [place] # (Auto) 2700 H Eos # (Auto) 600 H Baso # (Auto) 100 PT 12.0 INR 1.0 APTT 32 ABG Sample Site Left radial ABG pH 7.11 L* ABG pCO2 115.2 H* ABG pO2 48 L* ABG HCO3 37 H ABG Total CO2 40 H ABG O2 Saturation 65 L* ABG Base Excess 7.0 H FiO2 28 Sodium 139 Potassium 4.8 Chloride 105 Carbon Dioxide 34 H BUN 26 H Creatinine 0.95 Estimated GFR > 60 BUN/Creatinine Ratio 27.4 H Glucose 106 Calcium 8.5 Total Bilirubin 0.5 AST 23 ALT 18 Alkaline Phosphatase 74 Total Creatine Kinase 71 Troponin I < 0.012 NT-Pro-B Natriuret Pep 1240 H Total Protein 6.9 Albumin 3.8 Globulin 3.1 Albumin/Globulin Ratio 1.2 Lipase 40 Nasal Screen MRSA (PCR) Chlamy pneumoniae PCR Not detected Adenovirus (PCR) Not detected B.parapertussis DNA PCR Not detected Coronavirus OC43 (PCR) Not detected Coronavirus HKU1 (PCR) Not detected Coronavirus 229E (PCR) Not detected SARS-CoV-2 (PCR) Not detected Coronavirus NL63 (PCR) Not detected Human Metapneumovir PCR Not detected Influenza A (PCR) Not detected Influenza Type A (PCR) Not detected Influenza Type B (PCR) Not detected M. pneumoniae (PCR) Not detected Parainfluenza 1 (PCR) Not detected Parainfluenza 2 (PCR) Not detected Parainfluenza 3 (PCR) Not detected Parainfluenza 4 (PCR) Not detected RSV (PCR) Not detected Entero/Rhino (PCR) Not detected 09/17/23 09/17/23 09/17/23 15:17 17:35 20:45 WBC RBC Hgb Hct MCV MCH MCHC RDW Plt Count Neut % (Auto) Lymph % (Auto) [place] % (Auto) Eos % (Auto) Baso % (Auto) Neut # (Auto) Lymph # (Auto) [place] # (Auto) Eos # (Auto) Baso # (Auto) PT INR APTT ABG Sample Site Left radial Left radial ABG pH 7.23 L* 7.23 L* ABG pCO2 88.8 H* 86.7 H* ABG pO2 64 L 71 L ABG HCO3 37 H 36 H ABG Total CO2 40 H 39 H ABG O2 Saturation 86 L 89 L ABG Base Excess 9.0 H 9.0 H FiO2 30 30 Sodium Potassium Chloride Carbon Dioxide BUN Creatinine Estimated GFR BUN/Creatinine Ratio Glucose Calcium Total Bilirubin AST ALT Alkaline Phosphatase Total Creatine Kinase Troponin I NT-Pro-B Natriuret Pep Total Protein Albumin Globulin Albumin/Globulin Ratio Lipase Nasal Screen MRSA (PCR) Not detected Chlamy pneumoniae PCR Adenovirus (PCR) B.parapertussis DNA PCR Coronavirus OC43 (PCR) Coronavirus HKU1 (PCR) Coronavirus 229E (PCR) SARS-CoV-2 (PCR) Coronavirus NL63 (PCR) Human Metapneumovir PCR Influenza A (PCR) Influenza Type A (PCR) Influenza Type B (PCR) M. pneumoniae (PCR) Parainfluenza 1 (PCR) Parainfluenza 2 (PCR) Parainfluenza 3 (PCR) Parainfluenza 4 (PCR) RSV (PCR) Entero/Rhino (PCR) 09/18/23 04:20 WBC RBC Hgb Hct MCV MCH MCHC RDW Plt Count Neut % (Auto) Lymph % (Auto) [place] % (Auto) Eos % (Auto) Baso % (Auto) Neut # (Auto) Lymph # (Auto) [place] # (Auto) Eos # (Auto) Baso # (Auto) PT INR APTT ABG Sample Site ABG pH ABG pCO2 ABG pO2 ABG HCO3 ABG Total CO2 ABG O2 Saturation ABG Base Excess FiO2 Sodium 139 Potassium 5.0 Chloride 101 Carbon Dioxide 36 H BUN 36 H Creatinine 1.17 Estimated GFR > 60 BUN/Creatinine Ratio 30.8 H Glucose 173 H Calcium 8.7 Total Bilirubin AST ALT Alkaline Phosphatase Total Creatine Kinase Troponin I NT-Pro-B Natriuret Pep Total Protein Albumin Globulin Albumin/Globulin Ratio Lipase Nasal Screen MRSA (PCR) Chlamy pneumoniae PCR Adenovirus (PCR) B.parapertussis DNA PCR Coronavirus OC43 (PCR) Coronavirus HKU1 (PCR) Coronavirus 229E (PCR) SARS-CoV-2 (PCR) Coronavirus NL63 (PCR) Human Metapneumovir PCR Influenza A (PCR) Influenza Type A (PCR) Influenza Type B (PCR) M. pneumoniae (PCR) Parainfluenza 1 (PCR) Parainfluenza 2 (PCR) Parainfluenza 3 (PCR) Parainfluenza 4 (PCR) RSV (PCR) Entero/Rhino (PCR) [facility] Medical History Acute hypercapnic respiratory failure Asthma Elevated d-dimer (~02/2020) Cellulitis (~02/2020) Unilateral primary osteoarthritis, right knee Olecranon bursitis of left elbow Former smoker Osteoarthritis Duodenal ulcer Gastric ulcer Essential hypertension Leukocytosis (01/19/11) Thrombocytosis (01/19/11) Obesity (01/19/11) Prostate cancer (2010) Eczema CTS (carpal tunnel syndrome) Weakness of right lower extremity (11/15/16) Low back pain of over 3 months duration (11/15/16) Acquired insufficiency of aortic valve (10/08/15) Hypothyroidism (08/21/14) Idiopathic peripheral neuropathy Cobalamin deficiency History of malignant neoplasm of prostate Chronic obstructive pulmonary disease (01/19/11) Surgical History History of arthroplasty of right knee (05/24/20) Status post cataract extraction of both eyes with insertion of intraocular lens Status post wrist surgery (2011) History of spinal fusion (2012) History of splenectomy (1975) Family History Brother Thyroid cancer Mother Breast cancer Father No problems noted. 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 Acute hypoxic respiratory failure-tele floors buffer feels like this is significantly due to volume overload/congestive heart failure. I believe there is a significant component of COPD exacerbation as well. It may well be that patient has borderline respiratory function at baseline and it does not take much in the way of volume overload and or worsening of his intrinsic lung disease to ?tip him over the edge?. Will plan to continue with aggressive treatment of his COPD with IV steroids nebulizers as well as parental antibiotics for potential infectious etiology. Continue with parental diuretics as well to treat his congestive heart failure. Continue with respiratory support as necessary right now BiPAP and if need be intubation and ventilation (which he has required previously). Hopefully we can discontinue the BiPAP at least temporarily during the day today. Might want to obtain an ABG as a new baseline prior to discontinuing BiPAP 2. Acute COPD exacerbation-continue with frequent nebulizers IV steroids and IV antibiotics. Uncertain as to whether or not there has actually an infectious etiology here but given the critical nature of his disease believe he should be on antibiotic therapy. His leukocytosis is longstanding however and probably not a marker of infection, in my opinion. 3. Acute congestive heart failure-as above continue with parental diuretics and repeat echocardiography today. Check electrolytes tomorrow. 4. Hypertension-blood pressure adequately controlled 5. Nutrition-given patient's relative clinical stability probably okay to take him off of NPO status and cautiously give him a liquid diet. PROFEE Charge codes Subsequent inpatient/observation care: [id number]
--- NOTE | 2023-09-18 08:50 | DI.ECHO.S_ITS ---
[facility] : : [address] : : [place] : : [id number] : : Phone: [phone] Echocardiogram Report + + :Name: DONAVON DE LA CRUZ Study Date: 09/18/2023 Height: 64 in : :[facility] ReadingLocation: Weight: 284 lb : : Gender: Male BSA: 2.3 m2 : :: 1950 Age: 72 yrs BP: 130/85 mmHg: :Reason For Study: CONGESTIVE HEART FAILURE : :Ordering Physician: TOMASA, : :CELIA Curran Performed By: Iris Chang : :Referring: CELIA RANDOLPH : + + Interpretation Summary This is a limited echo to evaluate wall motion and LV systolic function. Normal sinus rhythm. Borderline dilated left ventricle with normal wall thickness. Normal wall motion and LV systolic function. Ejection fraction 60-65%. Compared to prior study dated June 13, 2023, no significant changes have occurred. Procedure: Images were not obtained from all of the standard acoustic windows due to the limited scope of the study. The study quality was technically adequate. Comparison is made with the echocardiogram of 06/13/2023. A contrast injection of Definity was performed to improve assessment of LV function. The patient was in sinus rhythm with heart rates between 73-93 bpm during the exam. Left Ventricle: The left ventricle is borderline dilated. The ejection fraction is estimated to be 60-65%. Atria: The left atrial size is normal. Aortic Valve: The aortic valve opens well. Tricuspid Valve: The tricuspid valve is normal in structure and function. There is trace tricuspid regurgitation. Great Vessels: The IVC is dilated (diameter is greater than 2.1 cm) yet it collapses greater than 50% with a sniff. This suggests a right atrial pressure of 8 mm Hg. Pericardium/ Pleura There is no pericardial effusion. There is no pleural effusion. MMode/2D Measurements & Calculations LVIDd: 6.0 cm LA A2 area: 21.9 cm2 LVIDs: 3.9 cm LA A4 area: 22.0 cm2 FS: 35.1 % LA length (vol): 5.9 cm IVSd: 1.0 cm LA vol: 69.1 ml LVPWd: 0.80 cm LA vol index: 30.5 ml/m2 LV bailey. diameter/BSA (cm/m^2): 2.6 LV sys. diameter/BSA (cm/m^2): 1.7 IVC diam: 2.1 cm Doppler Measurements & Calculations MV E max romaine: 105.9 cm/sec MV A max romaine: 121.5 cm/sec MV E/A: 0.87 Med Peak E' Romaine: 8.1 cm/sec E/E' med: 13.1 Lat Peak E' Romaine: 8.9 cm/sec E/E' lat: 11.9 E/e' average: 12.5 MV dec time: 0.20 sec Electronically signed by: Bethany Strong M.D. on Reading Physician:09/18/2023 05:00 PM
[2023-09-18] MEDS: PANTOPRAZOLE DR 40 MG TABLET PO ×2 (09:01→20:40)
[2023-09-18] MEDS: POTASSIUM CHLORIDE 20 MEQ TAB PO (09:01)
[2023-09-18] MEDS: CYANOCOBALAMIN (VITAMIN B-12) 500 MCG TABLET 1000 MCG PO (09:01)
[2023-09-18] MEDS: TAMSULOSIN 0.4 MG CAPSULE PO (09:01)
[2023-09-18] MEDS: ENOXAPARIN 40 MG/0.4 ML SYRINGE SUBCUT (09:03)
[2023-09-18] MEDS: MELOXICAM 7.5 MG TABLET 15 MG PO (09:03)
[2023-09-18] MEDS: AZITHROMYCIN 500 MG in DEXTROSE 5% IN WATER 250 ML 250 MG IV (10:48)
--- NOTE | 2023-09-18 15:39 | CM.DANOTE ---
DCP Assessment Note pt is a 72yo M here following acutre hypoxic resp failure/COPD exacerbation. PCP Dr. Sam Hill Medicare and AARP ARMORED MACHINE OPERATOR reviewed EMR. Pt has a hx of [facility] for SNF. Pt lives at home in [place] and is indep/drives at baseline. Pt was admitted June of this year for similar resp concerns, was discharged home with friend support and [facility]. no PT/OT order at this time. Per RN, pt has been out of bed and ambulating okay, but does not believe a PT/OT eval would be out of place. ARMORED MACHINE OPERATOR entered room and introduced self and role. Pt resting in chair. Pt reports he would be open to resuming HH if the doctor insisted but at this point does not think he needs it. Pt reports part of the issue is his triology machine broke, he is already in contact with the company about fixing the broken part. Pt denies any DCP needs at this time. Pt inquired about missing phone expeller worker/rosary. ARMORED MACHINE OPERATOR reviewed EMR, no phone expeller worker or rosary logged. ARMORED MACHINE OPERATOR spoke with ED RN and ED ARMORED MACHINE OPERATOR, no rosary and phone expeller worker to be found. ARMORED MACHINE OPERATOR lvm with lost in found to inquire about it. ARMORED MACHINE OPERATOR lent pt the phone expeller worker from the main nurses station. Pt appreciative but sad about the misplacement of his rosary. P: anticipate home with friend support when stable. f/u about need for PT/OT evals, resumption of HH, and to confirm triology machine fixed. CM team will follow closely. EDITH Weeks Discharge Planning/Care Management CM Discharge Assessment Start: 09/18/23 15:37 Freq: Status: Active Protocol: Document 09/18/23 15:38 (Rec: 09/18/23 15:39 [id number]) Discharge Planning Assessment Assigned Geek Squad Agent EDITH Galicia Advance Directives? No Advance Directives on File No History Provided By Patient,Friend,Medical Record Prior Living Arrangements House Household Members none Type of transporation used prior to Drives own vehicle admit Independent with ADL's Yes Is patient alert and oriented? Yes DME Already Rented / Owned Oxygen Comment pt's triology machine broke, one of the factors contributing to his admission Comment Lives alone, hx of [facility], [facility], and in home care. DCP TBD Discharge Plan Home Transportation Arrangement TBD SNF/HH Preference resume [facility] if doctor insists Whiteboard Updated in Patient Room with Yes name and ext. # of Geek Squad Agent Review Status In Process Please Provide Date Initial DC 09/18/23 Assessment Was Performed Next Review Type Continued Stay Review
[2023-09-19] VITALS (32 sets, daily range): BP systolic 113–145; BP diastolic 60–73; PULSE 61–100; RESP 16–69; TEMP 31–36.9; O2SAT 87–96
--- NOTE | 2023-09-19 00:13 | RT ---
2302 -Pt placed back on BiPAP; mode AVAPs at this time. RT notified. Will cont. to monitor.
[2023-09-19] MEDS: methylPREDNISolone 125 MG/2 ML VIAL 80 MG IV ×5 (00:51→23:31)
--- NOTE | 2023-09-19 03:35 | RT ---
0335 -pt requesting to be off BiPAP and was placed back on 3L MD.
[2023-09-19] MEDS: LEVOTHYROXINE 100 MCG TABLET 150 MCG PO (05:31)
[2023-09-19 05:54] LABS: BUN Creatinine Ratio 48.3 (6-22); Blood Urea Nitrogen 42 mg/dL (9-20); Calcium 8.5 mg/dL (8.4-10.2); Carbon Dioxide 38 mmol/L (22-32); Chloride 99 mmol/L (98-107); Estimated Glomerular Filt Rate > 60 mL/min (>60); Glucose 153 mg/dL (80-110); HEMOLYSIS < 15 (0-50); Potassium 4.5 mmol/L (3.4-5.1); Sodium 135 mmol/L (137-145)
[2023-09-19] MEDS: BUDESONIDE 0.5 MG/2 ML NEB INH ×2 (06:03→19:27)
[2023-09-19] MEDS: ALBUTEROL/IPRATROPIUM 3 ML AMPUL INH ×4 (06:03→19:27)
--- NOTE | 2023-09-19 07:56 | PM.PN.1 ---
Subjective Subjective Date Patient Seen: 09/19/23 Time Patient Seen: 07:56 Interval history: Patient continues to be improved. Went back on BiPAP for several hours overnight. Looking for something more to eat. No new complaints or issues Limited echo done yesterday does not demonstrate any change in overall left ventricular function Tele tar kettle runner service signed off yesterday. Did not really have a tremendous output with the IV Lasix. Exam Vital Signs (past 8 hours): - 09/19/23 00:00 09/19/23 01:25 09/19/23 03:07 Temperature 97.5 F L Pulse Rate 69 Respiratory Rate 23 Blood Pressure 113/66 113/66 Pulse Oximetry 92 Oxygen Delivery Method Oxygen Flow Rate 2 Fraction of Inspired Oxygen 30 30 09/19/23 04:00 09/19/23 06:03 Temperature 97.3 F L Pulse Rate 61 70 Respiratory Rate 24 18 Blood Pressure 145/64 H Pulse Oximetry 93 93 Oxygen Delivery Method Nasal Cannula Oxygen Flow Rate 3 3 Fraction of Inspired Oxygen 32 Fraction of Inspired Oxygen 32 SaO2/FiO2 Ratio 290 Oxygen Delivery Method Nasal Cannula Oxygen Flow Rate 3 Objective Labs 09/17/23 09:53 09/19/23 04:25 Labs: Laboratory Results - last 24 hr 09/19/23 04:25 Sodium 135 L Potassium 4.5 Chloride 99 Carbon Dioxide 38 H BUN 42 H Creatinine 0.87 Estimated GFR > 60 BUN/Creatinine Ratio 48.3 H Glucose 153 H Calcium 8.5 Magnesium 2.0 PFSH Medical History Acute hypercapnic respiratory failure Asthma Elevated d-dimer (~02/2020) Cellulitis (~02/2020) Unilateral primary osteoarthritis, right knee Olecranon bursitis of left elbow Former smoker Osteoarthritis Duodenal ulcer Gastric ulcer Essential hypertension Leukocytosis (01/19/11) Thrombocytosis (01/19/11) Obesity (01/19/11) Prostate cancer (2010) Eczema CTS (carpal tunnel syndrome) Weakness of right lower extremity (11/15/16) Low back pain of over 3 months duration (11/15/16) Acquired insufficiency of aortic valve (10/08/15) Hypothyroidism (08/21/14) Idiopathic peripheral neuropathy Cobalamin deficiency History of malignant neoplasm of prostate Chronic obstructive pulmonary disease (01/19/11) Surgical History History of arthroplasty of right knee (05/24/20) Status post cataract extraction of both eyes with insertion of intraocular lens Status post wrist surgery (2011) History of spinal fusion (2012) History of splenectomy (1975) Family History Brother Thyroid cancer Mother Breast cancer Father No problems noted. 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 Acute hypoxic respiratory failure-I continue to believe this is more COPD than volume overload. Will continue with oral diuretics but I think aggressive treatment of his lung disease is appropriate. Continue to monitor oxygen levels to prevent eliminating his hypoxic respiratory drive by over replacing oxygen. Continue with nebulizers IV steroids and the IV antibiotics 2. Acute COPD exacerbation-continue with frequent nebulizers IV steroids and IV antibiotics. Uncertain as to whether or not there has actually an infectious etiology here but given the critical nature of his disease believe he should be on antibiotic therapy. His leukocytosis is longstanding however and probably not a marker of infection, in my opinion. 3. Acute congestive heart failure-continue with oral diuretics. Echo unremarkable. Electrolytes okay this morning. 4. Hypertension-blood pressure adequately controlled 5. Nutrition-given patient's relative clinical stability probably okay to advance his diet. 6. Activity-will have physical therapy formally consult see and get him up out of bed if possible. Increased activity would be beneficial all the way around I believe. PROFEE Charge codes Subsequent inpatient/observation care: [id number]
[2023-09-19] MEDS: CYANOCOBALAMIN (VITAMIN B-12) 500 MCG TABLET 1000 MCG PO (08:42)
[2023-09-19] MEDS: MELOXICAM 7.5 MG TABLET 15 MG PO (08:43)
[2023-09-19] MEDS: FUROSEMIDE 40 MG TABLET PO (08:43)
[2023-09-19] MEDS: PANTOPRAZOLE DR 40 MG TABLET PO ×2 (08:43→21:28)
[2023-09-19] MEDS: POTASSIUM CHLORIDE 20 MEQ TAB PO (08:43)
[2023-09-19] MEDS: TAMSULOSIN 0.4 MG CAPSULE PO (08:43)
--- NOTE | 2023-09-19 11:35 | PT.IIE ---
Current Diagnoses Chronic obstructive pulmonary disease with (acute) exacerbation (09/17/23) Surgical History (Last Reviewed 09/18/23 @ 08:07 by Blas Vargas MD) History of arthroplasty of right knee (05/24/20) History of spinal fusion (2012) History of splenectomy (1975) Status post cataract extraction of both eyes with insertion of intraocular lens Status post wrist surgery (2011) Medical History (Last Reviewed 09/18/23 @ 08:07 by Blas Vargas MD) Acquired insufficiency of aortic valve (10/08/15) Acute hypercapnic respiratory failure Asthma Cellulitis (~02/2020) Chronic obstructive pulmonary disease (01/19/11) Cobalamin deficiency CTS (carpal tunnel syndrome) Duodenal ulcer Eczema Elevated d-dimer (~02/2020) Essential hypertension Former smoker Gastric ulcer History of malignant neoplasm of prostate Hypothyroidism (08/21/14) Idiopathic peripheral neuropathy Leukocytosis (01/19/11) Low back pain of over 3 months duration (11/15/16) Obesity (01/19/11) Olecranon bursitis of left elbow Osteoarthritis Prostate cancer (2010) Thrombocytosis (01/19/11) Unilateral primary osteoarthritis, right knee Weakness of right lower extremity (11/15/16) Physical Therapy Inpatient Evaluation/Re-Eval M1 PT/OT-IP Prior Functional Status Start: 09/19/23 13:05 Freq: NEEDED Status: Active Protocol: Document 09/19/23 11:35 AB (Rec: 09/19/23 13:18 AB [id number]) Medical Review Prior Functional Status Medical History Reviewed Yes Communication able to make needs known Mobility and Gait pt stated that he was independent with all mobilities and ambulation without AD Social History Household Members none Living Arrangements House Number of Floors (Floors) Two Floors Number of Stairs To Enter/Railing? no steps to enter the house 15 steps B rails to get to 2nd level bedroom Home Environment Standard Height Toilet,Walk in Shower Home Equipment Straight Cane,Shower Seat with Backrest,Hand Held Shower, Grab Bars In Shower Additional Social History Comment has a house keeper that comes in to assist with house chores pt has an adjustable bed; pt has access to bed rails if needed M2 PT-IP Current Condition Start: 09/19/23 13:05 Freq: NEEDED Status: Active Protocol: Document 09/19/23 11:35 AB (Rec: 09/19/23 13:18 AB [id number]) Physical Therapy Current Condition Current Condition Evaluation Date 09/19/23 Treatment Diagnosis COPD; CHF; acute hypoxic respiratory failure; difficulty in walking Onset Date 09/17/23 M3 PT-IP Subjective Start: 09/19/23 13:05 Freq: NEEDED Status: Active Protocol: Document 09/19/23 11:35 AB (Rec: 09/19/23 13:18 AB [id number]) Subjective Physical Therapy Visit Type Type Initial Evaluation Visit Start Time 11:35 Visit Stop Time 12:05 Number of DESKTOP SUPPORT CONSULTANT Visits 0 Physical Therapy Visit Comments Patient Comments agreeable to do PT Therapy Pain Assessment Pain Present Pain Present Denied Pain M4 PT-IP Mobility and Gait Start: 09/19/23 13:05 Freq: NEEDED Status: Active Protocol: Document 09/19/23 11:35 AB (Rec: 09/19/23 13:18 AB [id number]) PT-Bed Mobility Assessment Supine to Sit Supine to Sit Standby Assistance PT-Transfer Assessment Sit to and From Stand Sit to and from Stand Standby Assistance Equipment Transfer Assistive Device None,Gait Belt Orthotic/Prosthetic Devices or Brace: No Transfers Transfer Destination Chair Transfer Technique ambulated Transfer Ability Level of Assist Standby Assistance,1 Person Assistance,Use of Upper Extremities Comments Mobility Comments pt supine in bed and agreeable to do PT. obtained PLOF and home set up from pt. BP: 117/ 68 O2 sat with 3 L/min O2 supplement: 95% NE 80 pt completed supine to sit SBA . able to sit on EOB SBA. sit to stand SBA and ambulated in room without AD SBA. presents with antgalci waddling gait without LOB. pt sat on the chair. O2 sat: 91-92%. educated on PLB. pt agreed to do stairs. pt ambulated towards the stairs in the hallway without AD SBA. intermittent standing rest breaks and O2 sat monitored. 86-87% during ambulation with cues for PLB and pacing. O2 sat increased to 88-91% in ~ 15 sec. pt completed up/down steps using B rails SBA. repeated x 2 sets. assisted pt back to his room on a w/c. pt ambulated from w /c to chair SBA without AD. positioned pt on the chair. Left pt with nurse in room. Gait Assessment Gait Gait Assistance Required: Standby Assistance Distance (Feet) 250 Able to Maintain Weight Bearing Status Yes During Gait Assistive Devices Assistive Device Gait Belt Orthotic/Prosthetic Devices or Brace: No Gait Deviations General Gait Pattern Antalgic Factors Limiting Gait Function Factors Limiting Gait Function Decreased Activity Tolerance, Respiratory Distress Stair Climbing Assessment Evaluation Level of Assist On Stairs Standby Assistance Devices Stair Climbing Assistive Devices Left Railing,Right Railing Technique/Endurance Stair Climbing Direction Ascend and Descend Stair Climbing Technique Step to Step Number of Steps Climbed 3 Query Text: Stair Climbing Set # Repetitions (reps) 2 PT-Balance Assessment Sitting Balance and Reactions Static Sitting Balance Ability Normal Dynamic Sitting Balance Ability Good Standing Balance and Reactions Static Standing Balance Ability Good Dynamic Standing Balance Ability Good Device Used without AD M5 PT-IP Objective Assessments Start: 09/19/23 13:05 Freq: NEEDED Status: Active Protocol: Document 09/19/23 11:35 AB (Rec: 09/19/23 13:18 AB [id number]) Orientation Orientation/Cognition Level of Alertness Alert Orientation Name,Place,Situation Language Function Ability No Deficits Noted Safety Awareness Understands Safety Issues Memory Description No Deficits Noted Gross Range of Motion Lower Extremity ROM Assessment Within Functional Limits Strength Lower Extremity Strength Assessment Within Functional Limits Muscle Tone Muscle Tone WNL Yes M6 PT-IP Treatment Start: 09/19/23 13:05 Freq: NEEDED Status: Active Protocol: Document 09/19/23 11:35 AB (Rec: 09/19/23 13:18 AB [id number]) Physical Therapy Treatment Education Education Provided Safety M7 PT-IP Assessment and Plan Start: 09/19/23 13:05 Freq: NEEDED Status: Active Protocol: Document 09/19/23 11:35 AB (Rec: 09/19/23 13:18 AB [id number]) PT Summary Assessment and Plan Potential Rehabilitation Potential Good Status of Condition at Evaluation Evolving Summary Impairments Strength,Balance,Bed Mobility, Transfers,Gait,Activity Tolerance Assessment Summary pt is a 72 y/o M who presented with SOB. pt admitted for acute hypoxic respiratory failure, COPD, CHF. pt requiring SBA with mobility without AD but with O2 sat decreased to 86-87% during ambulation with 3L/min O2 supplement. pt will continue PT for improving activity tolerance. pt will benefit from outpt cardiopulmonary rehab upon d/c. will continue to assess progress. Goals Bed Mobility Goal Independent Transfer Goal Independent Gait Goal Independent Gait Distance 300 Other Goals up/down 15 steps B rails mod I and for O2 sat to maintain at least 88% Days to Meet Goals 10 Frequency of Treatment Frequency Of Treatment Once a Day Treatment Plan Physical Therapy Treatment Plan Bed Mobility Training,Transfer Training,Gait Training, Therapeutic Exercise,Balance Retraining,Discharge Planning, Hot or Cold Pack,Neuromuscular Re-ed,Coordination Retraining Precautions Other Precautions O2 sat Recommendations To Nursing Amount of Assist Needed Standby Assistance Discharge Recommendations PT Discharge Recommendations Home with Assistance, Outpatient PT Transportation Needs at Discharge Private Vehicle
[2023-09-19] MEDS: AZITHROMYCIN 500 MG in DEXTROSE 5% IN WATER 250 ML 250 MG IV (12:15)
[2023-09-20] VITALS (54 sets, daily range): BP systolic 129–140; BP diastolic 66–76; PULSE 66–122; RESP 14–51; TEMP 36.4–36.8; O2SAT 85–99
[2023-09-20] MEDS: LEVOTHYROXINE 100 MCG TABLET 150 MCG PO (05:49)
[2023-09-20] MEDS: methylPREDNISolone 125 MG/2 ML VIAL 80 MG IV (05:50)
[2023-09-20] MEDS: ALBUTEROL/IPRATROPIUM 3 ML AMPUL INH ×5 (08:14→23:22)
[2023-09-20] MEDS: BUDESONIDE 0.5 MG/2 ML NEB INH ×2 (08:14→19:35)
--- NOTE | 2023-09-20 08:15 | P.PN_ITS ---
Subjective Subjective Date Patient Seen: 09/20/23 Time Patient Seen: 08:15 Interval history: Patient continues to improve Up with physical therapy little bit yesterday Able to sleep overnight without the BiPAP No new complaints or issues Does tell me that his home noninvasive ventilator was damage when he traveled to [place] and is non operative at the moment. He did speak with the [employer] and they were coming out to check on it for routine maintenance anyway yesterday he believes that occurred but is going to follow-up. Maybe that was a contributing factor to his presentation, as he was not able to use it of course while he was in [place] or after his return Exam Vital Signs (past 8 hours): - 09/20/23 04:00 Temperature 97.9 F Pulse Rate 80 Respiratory Rate 22 Blood Pressure 139/72 Pulse Oximetry 96 Oxygen Flow Rate 2 Fraction of Inspired Oxygen 32 SaO2/FiO2 Ratio 290 Oxygen Delivery Method Nasal Cannula Oxygen Flow Rate 2 Narrative Exam Narrative: Very diminished breath sounds bilaterally although slightly improved over yesterday, no wheezes or crackles Objective Labs 09/17/23 09:53 09/19/23 04:25 [facility] Medical History Acute hypercapnic respiratory failure Asthma Elevated d-dimer (~02/2020) Cellulitis (~02/2020) Unilateral primary osteoarthritis, right knee Olecranon bursitis of left elbow Former smoker Osteoarthritis Duodenal ulcer Gastric ulcer Essential hypertension Leukocytosis (01/19/11) Thrombocytosis (01/19/11) Obesity (01/19/11) Prostate cancer (2010) Eczema CTS (carpal tunnel syndrome) Weakness of right lower extremity (11/15/16) Low back pain of over 3 months duration (11/15/16) Acquired insufficiency of aortic valve (10/08/15) Hypothyroidism (08/21/14) Idiopathic peripheral neuropathy Cobalamin deficiency History of malignant neoplasm of prostate Chronic obstructive pulmonary disease (01/19/11) Surgical History History of arthroplasty of right knee (05/24/20) Status post cataract extraction of both eyes with insertion of intraocular lens Status post wrist surgery (2011) History of spinal fusion (2012) History of splenectomy (1975) Family History Brother Thyroid cancer Mother Breast cancer Father No problems noted. 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 Acute hypoxic respiratory failure-I continue to believe this is more COPD than volume overload. Will continue with oral diuretics but I think aggressive treatment of his lung disease is appropriate. Continue to turn down oxygen and potentially evaluate for home O2 2. Acute COPD exacerbation-continue with frequent nebulizers IV steroids and IV antibiotics. 3. Acute congestive heart failure-continue with oral diuretics. Echo unremarkable. 4. Hypertension-blood pressure adequately controlled 5. Nutrition-diet advanced without any difficulty 6. Activity-continue with physical therapy. I believe increased activity is important and will help me better assess his stability and readiness for discharge IH PROFEE Charge codes Subsequent inpatient/observation care: [id number]
[2023-09-20] MEDS: PANTOPRAZOLE DR 40 MG TABLET PO ×2 (08:47→21:19)
[2023-09-20] MEDS: MELOXICAM 7.5 MG TABLET 15 MG PO (08:47)
[2023-09-20] MEDS: CYANOCOBALAMIN (VITAMIN B-12) 500 MCG TABLET 1000 MCG PO (08:47)
[2023-09-20] MEDS: FUROSEMIDE 40 MG TABLET PO (08:47)
[2023-09-20] MEDS: POTASSIUM CHLORIDE 20 MEQ TAB PO (08:47)
[2023-09-20] MEDS: TAMSULOSIN 0.4 MG CAPSULE PO (08:47)
--- NOTE | 2023-09-20 14:55 | PT.IPTN ---
Current Diagnoses Chronic obstructive pulmonary disease with (acute) exacerbation (09/17/23) Physical Therapy Treatment Note M2 PT-IP Current Condition Start: 09/19/23 13:05 Freq: NEEDED Status: Active Protocol: Document 09/19/23 11:35 AB (Rec: 09/19/23 13:18 AB [id number]) Physical Therapy Current Condition Current Condition Evaluation Date 09/19/23 Treatment Diagnosis COPD; CHF; acute hypoxic respiratory failure; difficulty in walking Onset Date 09/17/23 M3 PT-IP Subjective Start: 09/19/23 13:05 Freq: NEEDED Status: Active Protocol: Document 09/20/23 16:11 TS (Rec: 09/20/23 16:23 TS [id number]) Subjective Physical Therapy Visit Type Type Treatment Note Visit Start Time 14:55 Visit Stop Time 15:19 Number of PSYCHOSOCIAL REHABILITATION COUNSELOR Visits 1 Physical Therapy Visit Comments Patient Comments Pt found resting in bed, is agreeable to PT. M4 PT-IP Mobility and Gait Start: 09/19/23 13:05 Freq: NEEDED Status: Active Protocol: Document 09/20/23 16:11 TS (Rec: 09/20/23 16:23 TS [id number]) PT-Bed Mobility Assessment Supine to Sit Supine to Sit Standby Assistance Sit to Supine Sit to Supine Standby Assistance PT-Transfer Assessment Sit to and From Stand Sit to and from Stand Standby Assistance Equipment Transfer Assistive Device None,Gait Belt Orthotic/Prosthetic Devices or Brace: No Comments Mobility Comments pt resting on 3.5L's of o2, Spo2 96%. Supine to sit SBA with HOB elevated. Pt ambulated with no AD ~250'SBA/ CGA due to x1 LOB, o2 increased to 4L's for mobility . He performed steps x24 in stairwell SBA with B handrails , had no buckling or LOB. Pt ambulated back to room, Spo2 88% on 4L's. Pt required ~1min for Spo2 to recover 95% on 4L 's. Pt was left in bed, all needs met. Gait Assessment Gait Gait Assistance Required: Standby Assistance Distance (Feet) 250 Able to Maintain Weight Bearing Status Yes During Gait Assistive Devices Assistive Device Gait Belt Orthotic/Prosthetic Devices or Brace: No Gait Deviations General Gait Pattern Antalgic Factors Limiting Gait Function Factors Limiting Gait Function Decreased Activity Tolerance, Respiratory Distress Comments Gait Comments See mobility comments Stair Climbing Assessment Evaluation Level of Assist On Stairs Standby Assistance Devices Stair Climbing Assistive Devices Left Railing,Right Railing Technique/Endurance Stair Climbing Direction Ascend and Descend Stair Climbing Technique Step to Step Number of Steps Climbed 12 Stair Climbing Set # Repetitions (reps) 2 Comments Stair Climbing Comments See mobility comments PT-Balance Assessment Sitting Balance and Reactions Static Sitting Balance Ability Normal Dynamic Sitting Balance Ability Good Standing Balance and Reactions Static Standing Balance Ability Good Dynamic Standing Balance Ability Good Device Used without AD M5 PT-IP Objective Assessments Start: 09/19/23 13:05 Freq: NEEDED Status: Active Protocol: Document 09/19/23 11:35 AB (Rec: 09/19/23 13:18 AB [id number]) Orientation Orientation/Cognition Level of Alertness Alert Orientation Name,Place,Situation Language Function Ability No Deficits Noted Safety Awareness Understands Safety Issues Memory Description No Deficits Noted Gross Range of Motion Lower Extremity ROM Assessment Within Functional Limits Strength Lower Extremity Strength Assessment Within Functional Limits Muscle Tone Muscle Tone WNL Yes M6 PT-IP Treatment Start: 09/19/23 13:05 Freq: NEEDED Status: Active Protocol: Document 09/20/23 16:11 TS (Rec: 09/20/23 16:23 TS [id number]) Physical Therapy Treatment Education Education Provided Safety M7 PT-IP Assessment and Plan Start: 09/19/23 13:05 Freq: NEEDED Status: Active Protocol: Document 09/20/23 16:11 TS (Rec: 09/20/23 16:23 TS [id number]) PT Summary Assessment and Plan Potential Rehabilitation Potential Good Summary Impairments Strength,Balance,Bed Mobility, Transfers,Gait,Activity Tolerance Progress Towards Goals Progressing Toward Goals Assessment Summary Tanner is making good progress with his mobility. He continues to ambulate ~250'SBA with no AD. He had x1LOB requiring CGA for balance. He performed steps x24, had some SOB. Spo2 desats to high 80's with mobility on 4L's, increased to mid 90's with ~ 1min of rest. PT will continue to recommend home with assist . Goals Bed Mobility Goal Independent Transfer Goal Independent Gait Goal Independent Gait Distance 300 Other Goals up/down 15 steps B rails mod I and for O2 sat to maintain at least 88% Days to Meet Goals 10 Frequency of Treatment Frequency Of Treatment Once a Day Treatment Plan Physical Therapy Treatment Plan Bed Mobility Training,Transfer Training,Gait Training, Therapeutic Exercise,Balance Retraining,Discharge Planning, Hot or Cold Pack,Neuromuscular Re-ed,Coordination Retraining Precautions Other Precautions O2 sat Recommendations To Nursing Amount of Assist Needed Standby Assistance Discharge Recommendations PT Discharge Recommendations Home with Assistance, Outpatient PT Transportation Needs at Discharge Private Vehicle
--- NOTE | 2023-09-20 15:53 | PC.NURSE ---
Day shift: Pt A&Ox4, up ind in room. O2 sat 88%-94% on 2-3L NC with activity, 2L NC at rest. Home oxygen set up with RT and plan is for discharge tomorrow morning. Pt declined medication. IV infiltrated, pt declined new IV start, provider okayed leaving out, IV meds switched to PO by provider. Pt ambulated with PT. VSS, call light within reach. Care ongoing, will continue to monitor.
[2023-09-20] MEDS: predniSONE 20 MG TABLET 30 MG PO (21:19)
[2023-09-21] VITALS (20 sets, daily range): BP systolic 140–162; BP diastolic 69–76; PULSE 65–87; RESP 16–21; TEMP 36.6–36.7; O2SAT 93–98
[2023-09-21] MEDS: LEVOTHYROXINE 100 MCG TABLET 150 MCG PO (06:30)
--- NOTE | 2023-09-21 07:23 | PM.DS.1 ---
History of Present Illness History of Present Illness Date Patient Seen: 09/21/23 Time Patient Seen: 07:23 Chief complaint: Low O2 Narrative: 72-year-old male with severe COPD and history of hypercapnic respiratory failure who presented to the [facility] Emergency Department with an oxygen saturation in the mid 70s. He is reporting increased shortness of breath at home. Does not have oxygen at home, but does have a noninvasive ventilator at home that he uses. Denies any fever chills no increased cough sputum production etcetera Patient's chest x-ray shows maybe borderline pulmonary edema, does have a minimally elevated BNP as well. White count also somewhat elevated. He has recently completed a tapering course of prednisone (probably about a month ago). Followed by Pulmonary Medicine here at [facility] as well as myself. Last PFTs done elsewhere demonstrated an FEV1 of 0.93 L in FEV1/FVC ratio of 0.48. Monson to have a combination of asthma and COPD. Does have an elevated eosinophilic count and is under evaluation for possible eosinophilic asthma etcetera. Testing not complete Discharge Providers Provider Date of admission: 09/17/23 10:43 Discharge Date: 09/21/23 Primary care physician: Blas Vargas MD Consults: 09/17/23 11:34 Consult to Cardio/Pulmonary Rehabilitation Routine Comment: Physician Instructions: Evaluate and treat 09/19/23 07:14 Consult to Physical Therapy Evaluate & Treat Comment: Physician Instructions: Evaluate and Treat Discharge provider: Blas Vargas MD Summary Hospital Course Discharge Diagnosis: 1. Acute hypoxic respiratory failure 2. Acute COPD exacerbation 3. Acute on chronic congestive heart failure 4. Essential hypertension 5. Hypothyroidism 6. Acute hypercapnic respiratory failure 7. Morbid obesity 8. Chronic leukocytosis Hospital Course: Patient was admitted as above after presenting with severe hypoxemia. Initially did well with aggressive treatment for his COPD with IV steroids frequent nebulizer treatments with bronchodilators etcetera. However in the first 24 hours he became lethargic and minimally if at all responsive found to be quite hypercapnic. He was transferred from the floor to the ICU placed on BiPAP for 24-36 hours. With this his hypercapnia resolved his mental status improved. He continued with aggressive treatment for his COPD but also had the addition of aggressive treatment for possible volume overload/congestive heart failure. Patient continued to improve slowly to the point where he is able to be taken off of BiPAP and then used BiPAP only at night and then discontinued use of BiPAP altogether. Patient remained modestly hypoxic requiring oxygen via nasal cannula continuously at about 3 liters/minute maintaining an oxygen saturation between 88 and 94%. Patient was set up for home oxygen therapy. Patient's diuretics were reduced and patient continued to do well Patient was up and around with physical therapy seem to have better than expected stamina Patient was also treated for potential pneumonia given his leukocytosis and his significant respiratory decline. However he completed a course of antibiotic therapy for community-acquired pneumonia in the hospital this is not continued at discharge Exam Vital Signs (past 8 hours): - 09/21/23 00:00 09/21/23 04:00 Temperature 98.1 F 97.8 F Pulse Rate 76 77 Respiratory Rate 21 19 Blood Pressure 140/69 140/74 Pulse Oximetry 98 94 Oxygen Flow Rate 3 3 Fraction of Inspired Oxygen 32 SaO2/FiO2 Ratio 290 Oxygen Delivery Method Nasal Cannula Oxygen Flow Rate 3 Narrative Exam Narrative: Morbidly obese male lying in hospital bed in no obvious distress HEENT-unremarkable Lungs-very diminished breath sounds no wheezes or crackles (not sure moving enough air to produce wheezes) Heart-regular rate and rhythm Abdomen-benign Objective Labs 09/17/23 09:53 09/19/23 04:25 [facility] Medical History Acute hypercapnic respiratory failure Asthma Elevated d-dimer (~02/2020) Cellulitis (~02/2020) Unilateral primary osteoarthritis, right knee Olecranon bursitis of left elbow Former smoker Osteoarthritis Duodenal ulcer Gastric ulcer Essential hypertension Leukocytosis (01/19/11) Thrombocytosis (01/19/11) Obesity (01/19/11) Prostate cancer (2010) Eczema CTS (carpal tunnel syndrome) Weakness of right lower extremity (11/15/16) Low back pain of over 3 months duration (11/15/16) Acquired insufficiency of aortic valve (10/08/15) Hypothyroidism (08/21/14) Idiopathic peripheral neuropathy Cobalamin deficiency History of malignant neoplasm of prostate Chronic obstructive pulmonary disease (01/19/11) Surgical History History of arthroplasty of right knee (05/24/20) Status post cataract extraction of both eyes with insertion of intraocular lens Status post wrist surgery (2011) History of spinal fusion (2012) History of splenectomy (1975) Family History Brother Thyroid cancer Mother Breast cancer Father No problems noted. 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 He will continue using his multiple inhalers for treatment of his chronic lung disease. Continue using his noninvasive ventilator overnight. He will continue on oxygen therapy as well aiming for an oxygen saturation of 90% plus-minus. His again cautioned about not looking for a oxygen saturation in excess of 94% as that could be potentially dangerous for him Patient will continue on diuretic therapy orally Patient will continue all his other usual medications Discharge Plan Discharge Plan Patient Disposition: Home Discharge orders & Medications Prescriptions: New furosemide 40 mg Tablet 40 mg PO DAILY Qty: 90 3RF prednisone 20 mg tablet 40 mg PO DAILY Qty: 30 0RF Rx Instructions: 2 tabs daily for 1 week, then 1 tab daily for 1 week, then 1/2 tab daily for 1 week, then 1/2 tab every other day for 10 days, then stop Continued cyanocobalamin (vitamin B-12) 1,000 MCG tablet extended release 1,000 mcg PO DAILY Qty: 0 albuterol sulfate [Proventil HFA] 90 mcg/actuation HFA aerosol inhaler 2 puff INHALATION Q4HP PRN (Reason: shortness of breath or wheezing) Qty: 6 3RF levothyroxine 150 mcg tablet 150 mcg PO DAILY Qty: 180 3RF Rx Instructions: take 1 tablet by mouth in the morning before eating/drinking potassium chloride [Klor-Con M20] 20 mEq tablet,ER particles/crystals 20 meq PO DAILY Qty: 180 3RF tamsulosin [Flomax] 0.4 mg capsule 0.4 mg PO DAILY Qty: 180 3RF fluticasone furoate-vilanterol [Breo Ellipta] 200-25 mcg/dose blister with device 1 inh inhalation DAILY Qty: 60 11RF diphenhydramine HCl [Allergy (diphenhydramine)] 25 mg capsule 25 mg PO Q4H PRN (Reason: Itching) Rx Instructions: when needed (DME) Disabled Parking See Rx Instructions .ROUTE .MEDSUPPLY Qty: 1 0RF Rx Instructions: Patient qualifies for disabled parking as per the attached form. meloxicam 15 mg tablet 15 mg PO DAILY Qty: 90 3RF acetaminophen 325 mg Tablet 650 mg PO TID PRN (Reason: Pain, Mild) Qty: 60 0RF albuterol sulfate 2.5 mg /3 mL (0.083 %) solution for nebulization 2.5 mg inhalation Q12H PRN (Reason: respiratory distress) omeprazole 40 MG 40 mg PO 06 cyclobenzaprine 10 mg tablet 10 mg PO BEDTIME PRN (Reason: Spasms) Discontinued fluticasone propion-salmeterol [Advair Diskus] 250-50 mcg/dose blister with device 1 inh inhalation BID Qty: 60 0RF Rx Instructions: rinse your mouth with water, gargle, and spit after each use. chlorthalidone 25 mg tablet 50 mg PO DAILY Follow up/Referrals: Blas Vargas MD [Primary Care Provider] - 1 Week Discharge Health Status Multidrug resistant organism: No MDRO Diet/Activity/Treatments Diet: Diet as Tolerated Visit Report/Discharge Packet Stand Alone Forms: Patient Portal/API, Stroke Signs & Symptoms Discharge Data Primary Care Provider: Blas Vargas PROFEE Charge Codes Discharge inpatient/observation: [id number]
[2023-09-21] MEDS: CYANOCOBALAMIN (VITAMIN B-12) 500 MCG TABLET 1000 MCG PO (08:38)
[2023-09-21] MEDS: TAMSULOSIN 0.4 MG CAPSULE PO (08:38)
[2023-09-21] MEDS: POTASSIUM CHLORIDE 20 MEQ TAB PO (08:38)
[2023-09-21] MEDS: predniSONE 20 MG TABLET 30 MG PO (08:38)
[2023-09-21] MEDS: MELOXICAM 7.5 MG TABLET 15 MG PO (08:38)
[2023-09-21] MEDS: FUROSEMIDE 40 MG TABLET PO (08:38)
[2023-09-21] MEDS: PANTOPRAZOLE DR 40 MG TABLET PO (08:39)
[2023-09-21] MEDS: BUDESONIDE 0.5 MG/2 ML NEB INH (09:08)
[2023-09-21] MEDS: ALBUTEROL/IPRATROPIUM 3 ML AMPUL INH (09:08)
--- NOTE | 2023-09-21 09:26 | PC.NURSE ---
Addendum entered by Lisandra Topete R.N. 09/21/23 09:56: Pt wheeled via w/c by PCT to private taxi at approximately 0955. Original Note: Discharge: Pt agreeable to discharge. Education provided on stroke s/s, worsening symptoms, home oxygen use and fire safety, fall prevention, and new medications. Pt able to return information. No IV access. Paperwork signed. Pt awaiting for taxi transportation. Care ongoing, will continue to monitor.
--- NOTE | 2023-09-21 11:22 | CM.DPNOTE ---
DC Note Discharge home today, no reported need for HH. Close outpatient follow up recommended. No needs identified from this CM team. DENIZ
== END 2023-09-21 09:55 | disposition home or self-care (01) | DRG 190 ==
LOC: ED 10:43 → AC 10:44 → ICU 13:56
PROVIDERS: Hospitalist; Admitting Provider Internal Medicine; Emergency Provider Emergency Medicine; Family Provider Internal Medicine; PCP Internal Medicine; Referring Provider Emergency Medicine; Visit Provider Internal Medicine
DX: J44.1 Chronic obstructive pulmonary disease with (acute) exacerbation (principal); I50.33 Acute on chronic diastolic (congestive) heart failure; J96.01 Acute respiratory failure with hypoxia; J96.02 Acute respiratory failure with hypercapnia; Z68.42 Body mass index [BMI] 45.0-49.9, adult; I11.0 Hypertensive heart disease with heart failure; E03.9 Hypothyroidism, unspecified; D72.829 Elevated white blood cell count, unspecified; E66.01 Morbid (severe) obesity due to excess calories
CPT/HCPCS: 36415; 36600; 71045; 80048; 80053; 82550; 82805; 82962; 83690; 83735; 83880; 84484; 85025; 85610; 85730; 87633; 87797; 93005; 93010; 93307; 94618; 94640; 94660; 94760; 94762; 96374; 96375; 97116; 97162; 97530; 99285; J1650; J1940; J2919; J7613; Q9957

== ENCOUNTER → 2023-10-02 11:15 | Outpatient (CLI) | payer MEDICARE, SELFPAY ==
[2023-07-11 08:47] VITALS: RESP 7
[2023-09-18 11:45] VITALS: BMI 49.0
[2023-09-19 03:07] VITALS: PULSE 67; RESP 28; O2SAT 93
[2023-10-02 13:31] LABS: BUN Creatinine Ratio 33.7 (6-22); Blood Urea Nitrogen 30 mg/dL (9-20); Calcium 8.5 mg/dL (8.4-10.2); Chloride 95 mmol/L (98-107); Estimated Glomerular Filt Rate > 60 mL/min (>60); Glucose 144 mg/dL (80-110); HEMOLYSIS < 15 (0-50); Magnesium 1.8 mg/dL (1.6-2.3); Potassium 4.7 mmol/L (3.4-5.1); Sodium 138 mmol/L (137-145)
[2023-10-02 13:45] LABS: Carbon Dioxide 44 mmol/L (22-32)
[2023-10-08 10:08] LABS: Alder IgE 2.31 kU/L (Class III); Aspergillus fumigatus IgE 4.29 kU/L (Class IV); Box Elder IgE 0.52 kU/L (Class I); Cockroach IgE 0.28 kU/L (Class 0/I); Cottonwood IgE 0.78 kU/L (Class II); Elm Tree IgE 2.04 kU/L (Class III); IgE Mugwort 0.19 kU/L (Class 0/I); IgE Thistle,Russian 2.54 kU/L (Class III); Immunoglobulin E 2486 IU/mL (6-495); Mountain Cedar IgE 6.42 kU/L (Class IV); Oak Tree IgE 0.66 kU/L (Class II); Penicillium chrysogen IgE 2.48 kU/L (Class III); Pigweed, Common IgE 0.55 kU/L (Class I); Sheep Sorrel IgE 0.39 kU/L (Class I); Silver Birch IgE 0.35 kU/L (Class I)
== END ==
PROVIDERS: Family Provider Internal Medicine; PCP Internal Medicine; Referring Provider Internal Medicine Critical Care Medicine; Visit Provider Internal Medicine Critical Care Medicine
DX: J45.909 Unspecified asthma, uncomplicated (principal); I10 Essential (primary) hypertension; J96.10 Chronic respiratory failure, unspecified whether with hypoxia or hypercapnia
CPT/HCPCS: 36415; 80048; 82785; 83735; 86003

== ENCOUNTER 2023-10-10 08:30 | Outpatient (RCR) | payer MEDICARE, SELFPAY ==
[2023-07-11 08:47] VITALS: PULSE 56; RESP 244; RESP 7; O2SAT 92; BMI 46.5
== END 2023-10-10 10:30 ==
LOC: PUL 08:30
PROVIDERS: Family Provider Internal Medicine; PCP Internal Medicine; Referring Provider Internal Medicine Critical Care Medicine; Visit Provider Internal Medicine Critical Care Medicine
DX: J44.9 Chronic obstructive pulmonary disease, unspecified (principal)
CPT/HCPCS: 94626

== ENCOUNTER 2023-10-21 14:00 | Emergency (ER) | payer MEDICARE, SELFPAY ==
[2023-07-11 08:47] VITALS: RESP 7
[2023-09-18 11:45] VITALS: BMI 49.0
[2023-09-19 03:07] VITALS: PULSE 67; RESP 28; O2SAT 93
[2023-10-21] VITALS (99 sets, daily range): BP systolic 74–176; BP diastolic 35–96; PULSE 62–109; RESP 15–49; TEMP 32.8–38.1; O2SAT 89–100; BMI 39.3
--- NOTE | 2023-10-21 14:07 | ED.GENADULT ---
HPI - General Adult <Pedro Lucero DO - Last Filed: 10/22/23 07:08> General Chief complaint: Altered Mental Status Stated complaint: Found Down, Unresponsive, Intubated Time Seen by Provider: 10/21/23 14:06 Source: EMS Mode of arrival: EMS Limitations: altered mental status History of Present Illness HPI narrative: Patient is a 72-year-old male with a history of COPD, asthma, obesity here for evaluation of altered mental status. Patient was at home. He arrived by EMS. He was intubated in the field with rocuronium and ketamine after the patient was found to be cyanotic and hypoxic and altered. Patient was checked on at his home by friends after zoroastrianism today. They found him sitting at his table. There was no signs of trauma. Patient was intubated in the field with 1st pass success. Patient was also found to be hypotensive. Received 1 dose of push dose pressor and then very short course of epi which was discontinued after his blood pressure improved. Had a left humeral IO placed and a peripheral IV placed. Patient was unable to provide any HPI. Related Data Home Medications Medication Instructions Recorded Confirmed cyanocobalamin (vitamin B-12) 1,000 mcg PO DAILY ##0 04/04/17 10/16/23 1,000 mcg tablet,extended release diphenhydramine HCl 25 mg capsule 25 mg PO Q4H PRN Itching 09/14/17 10/16/23 (Allergy (diphenhydramine)) albuterol sulfate 2.5 mg/3 mL 2.5 mg inhalation Q12H PRN 09/17/23 10/16/23 (0.083 %) solution for nebulization respiratory distress cyclobenzaprine 10 mg tablet 10 mg PO BEDTIME PRN Spasms 09/17/23 10/16/23 omeprazole 40 mg capsule,delayed 40 mg PO DAILY 10/02/23 10/16/23 release Previous Rx's Medication Instructions Recorded acetaminophen 325 mg tablet 650 mg (2 x 325 mg) PO TID PRN 03/31/21 Pain, Mild #60 tabs Disabled Parking #1 ea 06/08/22 levothyroxine 150 mcg tablet 150 mcg PO DAILY #180 tabs 12/08/22 potassium chloride 20 mEq 20 meq PO DAILY #180 tabs 12/08/22 tablet,extended release(part/cryst) (Klor-Con M) tamsulosin 0.4 mg capsule (Flomax) 0.4 mg PO DAILY #180 caps 12/08/22 meloxicam 15 mg tablet 15 mg PO DAILY #90 tabs 06/26/23 fluticasone furoate 200 1 inh inhalation DAILY #60 ea 08/22/23 mcg-vilanterol 25 mcg/dose inhalation powder (Breo Ellipta) furosemide 40 mg tablet 40 mg PO DAILY #90 tabs 09/20/23 prednisone 20 mg tablet 40 mg (2 x 20 mg) PO DAILY #30 tabs 09/20/23 tiotropium bromide 18 mcg capsule 1 cap inhalation DAILY #30 10/16/23 with inhalation device (Spiriva inhalations with HandiHaler) metolazone 2.5 mg tablet 2.5 mg PO DAILY #7 tabs 10/19/23 Allergies Allergy/AdvReac Type Severity Reaction Status Date / Time crab [CRAB] Allergy Severe Throat Verified 10/16/23 09:24 swelling animal dander [ANIMAL DANDER] Allergy Mild Sinus Verified 10/16/23 09:24 congestion, itching, eczema pollen extracts Allergy Unknown Sinus Verified 10/16/23 09:24 [POLLEN EXTRACTS] congestion, itching, eczema Review of Systems <Pedro Lucero DO - Last Filed: 10/22/23 07:08> Review of Systems ROS Unobtainable: Unobtainable due to medical condition Patient History <Pedro Lucero DO - Last Filed: 10/22/23 07:08> Medical History Chronic congestive heart failure with left ventricular diastolic dysfunction Acute hypercapnic respiratory failure Asthma Elevated d-dimer (~02/2020) Cellulitis (~02/2020) Unilateral primary osteoarthritis, right knee Olecranon bursitis of left elbow Former smoker Osteoarthritis Duodenal ulcer Gastric ulcer Essential hypertension Leukocytosis (01/19/11) Thrombocytosis (01/19/11) Obesity (01/19/11) Prostate cancer (2010) Eczema CTS (carpal tunnel syndrome) Weakness of right lower extremity (11/15/16) Low back pain of over 3 months duration (11/15/16) Acquired insufficiency of aortic valve (10/08/15) Hypothyroidism (08/21/14) Idiopathic peripheral neuropathy Cobalamin deficiency History of malignant neoplasm of prostate Chronic obstructive pulmonary disease (01/19/11) Surgical History History of arthroplasty of right knee (05/24/20) Status post cataract extraction of both eyes with insertion of intraocular lens Status post wrist surgery (2011) History of spinal fusion (2012) History of splenectomy (1975) Family History Brother Thyroid cancer Mother Breast cancer Father No problems noted. 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 travel history: recent leisure activities: art, volunteer work and other Smoking Status: Former smoker Tobacco: How many years used: 15 Smokeless tobacco user: other quit status: quit date established second hand exposure: No alcohol intake: former substance use type: does not use Smoking Status: Former smoker alcohol intake frequency: holidays/special occasions only Substance Use Type: does not use Exam <Pedro Lucero DO - Last Filed: 10/22/23 07:08> Initial Vital Signs Initial Vital Signs: Vital Signs Pulse Rate 109 H 10/21/23 14:05 Respiratory Rate 10/21/23 14:05 Const General: ill appearing Nutritional Appearance: obese HENMT Head: normal to inspection and normocephalic Resp Other: Patient was intubated. Endotracheal tube 25 at the teeth. Breath sounds bilateral right somewhat greater than left. Minimal wheezing. Cardio Rate: regular rate Rhythm: regular rhythm GI Inspection: normal to inspection and non-distended Palpation: soft and No rigid Skin General: no rashes or lesions noted Neuro Other: Patient was unresponsive. Did receive ketamine and paralyzation prior to arrival Extrem Other: No gross deformities, pitting edema bilateral lower extremities <Marcela Will MD - Last Filed: 10/22/23 07:06> Initial Vital Signs Initial Vital Signs: Vital Signs Pulse Rate 109 H 10/21/23 14:05 Respiratory Rate 15 10/21/23 14:05 Procedures <Marcela Will MD - Last Filed: 10/22/23 07:06> Central Line Placement Right IJ: Time Out Performed: Yes Patient Placed on Monitor/Pulse Ox: Yes MD Prep: mask, gown and gloves Central Line Prep: Chlorhexidine scrub and sterile drapes applied Local Anesthetic: lidocaine 1% Amount of anesthesia used (mL): 5 Ultrasound Used for Placement: Yes Central Line Lumen Inserted: triple Post Procedure: sutured in place, good blood return, all ports aspirated, flushed, capped, sterile dressing applied and line stabilization device Post Procedure X-Ray: tip of catheter in good position and no pneumothorax seen Patient Tolerated Procedure: Well and No complications Complications: none Course <Pedro Lucero DO - Last Filed: 10/22/23 07:08> Orders Ordered: Discontinued Medications Albuterol/Ipratropium (Albuterol/Ipratropium 3 Ml Ampul) 3 ml INH NOW ONE Stop: 10/21/23 14:08 Last Admin: 10/21/23 15:23 Dose: 3 ml Documented By: Bumetanide (Bumetanide 1 Mg/4 Ml Vial) 2 mg IV NOW ONE Stop: 10/21/23 20:10 Last Admin: 10/21/23 20:19 Dose: 2 mg Documented By: Furosemide (Furosemide 40 Mg/4 Ml Vial) 60 mg IV NOW ONE Stop: 10/21/23 19:01 Last Admin: 10/21/23 19:10 Dose: 60 mg Documented By: Sodium Chloride (Normal Saline 0.9%) 1,000 mls @ 1,000 mls/hr IV BOLUS ONE Stop: 10/21/23 15:06 Last Infusion: 10/21/23 15:08 Dose: Infused Documented By: Admin: 10/21/23 14:10 Dose: 1,000 mls/hr Documented By: Ceftriaxone Sodium 1,000 mg/ (Sodium Chloride) 100 mls @ 200 mls/hr IV NOW ONE Stop: 10/21/23 14:08 Last Infusion: 10/21/23 16:03 Dose: Infused Documented By: Admin: 10/21/23 15:16 Dose: 200 mls/hr Documented By: Fentanyl 1,000 mcg/ Dextrose 250 mls @ 23.02 mls/hr IV TITRATE MANAN; Protocol Last Titration: 10/21/23 21:18 Dose: Infused Documented By: Titration: 10/21/23 18:55 Dose: 0 mcg/kg/hr, 0 mls/hr Documented By: Admin: 10/21/23 17:19 Dose: 0.7 mcg/kg/hr, 22.9 mls/hr Documented By: SPF Midazolam HCl 50 mg/ Dextrose 50 mls @ 5 mls/hr IV TITRATE PRN; Protocol PRN Reason: intubation Last Titration: 10/21/23 21:17 Dose: Infused Documented By: Titration: 10/21/23 17:41 Dose: 0 mg/hr, 0 mls/hr Documented By: Admin: 10/21/23 17:23 Dose: 5 mg/hr, 5 mls/hr Documented By: SPF Furosemide 60 mg/ Sodium (Chloride) 56 mls @ 112 mls/hr IV NOW ONE Stop: 10/21/23 17:39 Last Admin: 10/21/23 19:01 Dose: Not Given Documented By: Sodium Chloride (Normal Saline 0.9%) 1,000 mls @ 125 mls/hr IV CONT MANAN Last Admin: 10/21/23 17:42 Dose: 125 mls/hr Documented By: SPF NOREPINEPHRINE BITARTRATE/D5W (Levophed) 4 mg in 250 mls @ 49.328 mls/hr IV TITRATE MANAN; Protocol Last Admin: 10/21/23 22:14 Dose: 0.07 mcg/kg/min, 36.8 mls/hr Documented By: Titration: 10/21/23 22:14 Dose: Infused Documented By: JJuan David Titration: 10/21/23 19:49 Dose: 0.07 mcg/kg/min, 36.8 mls/hr Documented By: Titration: 10/21/23 19:31 Dose: 0.1 mcg/kg/min, 49.1 mls/hr Documented By: Titration: 10/21/23 19:22 Dose: 0.05 mcg/kg/min, 24.664 mls/hr Documented By: Titration: 10/21/23 19:06 Dose: 0.1 mcg/kg/min, 49.1 mls/hr Documented By: Titration: 10/21/23 18:16 Dose: 0.05 mcg/kg/min, 24.664 mls/hr Documented By: Admin: 10/21/23 18:07 Dose: 0.1 mcg/kg/min, 49.1 mls/hr Documented By: Propofol (Propofol) 1,000 mg in 100 mls @ 39.463 mls/hr IV TITRATE MANAN; Protocol Last Admin: 10/21/23 21:57 Dose: 20 mcg/kg/min, 15.785 mls/hr Documented By: Titration: 10/21/23 21:57 Dose: Infused Documented By: Titration: 10/21/23 20:27 Dose: 20 mcg/kg/min, 15.785 mls/hr Documented By: Titration: 10/21/23 20:04 Dose: 30 mcg/kg/min, 23.678 mls/hr Documented By: Titration: 10/21/23 19:36 Dose: 39.78 mcg/kg/min, 31.4 mls/hr Documented By: Admin: 10/21/23 18:47 Dose: 49.79 mcg/kg/min, 39.3 mls/hr Documented By: Furosemide 60 mg/ Sodium (Chloride) 56 mls @ 112 mls/hr IV NOW ONE Stop: 10/21/23 18:38 Last Admin: 10/21/23 19:02 Dose: Not Given Documented By: Ketamine HCl (Ketamine 500 Mg/5 Ml Inj) 100 mg IV NOW ONE Stop: 10/21/23 16:51 Last Admin: 10/21/23 16:53 Dose: 100 mg Documented By: Ketamine HCl (Ketamine 500 Mg/5 Ml Inj) 100 mg IV NOW ONE Stop: 10/21/23 17:00 Last Admin: 10/21/23 17:04 Dose: 100 mg Documented By: Methylprednisolone (Methylprednisolone 125 Mg/2 Ml Vial) 125 mg IV NOW ONE Stop: 10/21/23 14:08 Last Admin: 10/21/23 15:07 Dose: 125 mg Documented By: Vital Signs Vital signs: Vital Signs - 8 hr 10/21/23 14:16 10/21/23 14:16 10/21/23 14:20 Temperature 91.0 F L 91.8 F L Pulse Rate 101 H 92 H Respiratory Rate 18 23 Blood Pressure 130/84 Pulse Oximetry 97 97 Oxygen Delivery Method 10/21/23 14:20 10/21/23 14:30 10/21/23 14:36 Temperature 92.5 F L 92.5 F L Pulse Rate 81 78 Respiratory Rate 20 20 Blood Pressure 136/74 Pulse Oximetry 94 93 Oxygen Delivery Method 10/21/23 14:36 10/21/23 14:39 10/21/23 14:39 Temperature 92.7 F L Pulse Rate 77 Respiratory Rate Blood Pressure 157/88 H 176/90 H Pulse Oximetry 94 Oxygen Delivery Method 10/21/23 14:45 10/21/23 14:45 10/21/23 14:50 Temperature 92.7 F L 92.7 F L Pulse Rate 77 82 Respiratory Rate 20 27 H Blood Pressure 162/88 H Pulse Oximetry 95 95 Oxygen Delivery Method 10/21/23 14:50 10/21/23 14:55 10/21/23 14:55 Temperature 92.8 F L Pulse Rate 68 Respiratory Rate 20 Blood Pressure 169/96 H 174/81 H Pulse Oximetry 96 Oxygen Delivery Method 10/21/23 14:59 10/21/23 14:59 10/21/23 15:00 Temperature 92.8 F L 92.8 F L Pulse Rate 65 66 Respiratory Rate 38 H Blood Pressure 157/80 H Pulse Oximetry 95 95 Oxygen Delivery Method 10/21/23 15:00 10/21/23 15:05 10/21/23 15:05 Temperature 93.0 F L Pulse Rate 74 Respiratory Rate 20 Blood Pressure 146/82 H 158/90 H Pulse Oximetry 94 Oxygen Delivery Method 10/21/23 15:10 10/21/23 15:10 10/21/23 15:15 Temperature 93.0 F L 93.2 F L Pulse Rate 67 67 Respiratory Rate 20 20 Blood Pressure 131/74 Pulse Oximetry 92 89 L Oxygen Delivery Method 10/21/23 15:15 10/21/23 15:20 10/21/23 15:20 Temperature 93.2 F L Pulse Rate 64 Respiratory Rate 20 Blood Pressure 122/66 108/62 Pulse Oximetry 89 L Oxygen Delivery Method 10/21/23 15:25 10/21/23 15:25 10/21/23 15:30 Temperature 93.4 F L Pulse Rate 62 Respiratory Rate 20 Blood Pressure 107/64 103/65 Pulse Oximetry 92 Oxygen Delivery Method 10/21/23 15:30 10/21/23 15:35 10/21/23 15:35 Temperature 93.4 F L 93.6 F L Pulse Rate 62 64 Respiratory Rate 20 20 Blood Pressure 103/65 Pulse Oximetry 90 L 90 L Oxygen Delivery Method 10/21/23 15:40 10/21/23 15:40 10/21/23 15:45 Temperature 93.6 F L 93.7 F L Pulse Rate 64 63 Respiratory Rate 20 21 Blood Pressure 102/62 Pulse Oximetry 90 L 91 Oxygen Delivery Method 10/21/23 15:45 10/21/23 15:50 10/21/23 15:50 Temperature 93.7 F L Pulse Rate 64 Respiratory Rate 20 Blood Pressure 103/63 104/64 Pulse Oximetry 93 Oxygen Delivery Method 10/21/23 15:55 10/21/23 15:55 10/21/23 16:00 Temperature 93.9 F L 93.9 F L Pulse Rate 66 63 Respiratory Rate 20 20 Blood Pressure 111/67 Pulse Oximetry 93 92 Oxygen Delivery Method 10/21/23 16:00 10/21/23 16:05 10/21/23 16:05 Temperature 94.1 F L Pulse Rate 66 Respiratory Rate 20 Blood Pressure 98/60 109/65 Pulse Oximetry 94 Oxygen Delivery Method 10/21/23 16:10 10/21/23 16:10 10/21/23 16:18 Temperature 94.1 F L 94.3 F L Pulse Rate 65 71 Respiratory Rate 21 20 Blood Pressure 102/61 Pulse Oximetry 94 93 Oxygen Delivery Method 10/21/23 16:18 10/21/23 16:20 10/21/23 16:20 Temperature 94.3 F L Pulse Rate 70 Respiratory Rate 20 Blood Pressure 109/66 109/68 Pulse Oximetry 92 Oxygen Delivery Method 10/21/23 16:25 10/21/23 16:25 10/21/23 16:30 Temperature 94.5 F L Pulse Rate 69 Respiratory Rate 20 Blood Pressure 100/60 100/61 Pulse Oximetry 90 L Oxygen Delivery Method 10/21/23 16:30 10/21/23 16:35 10/21/23 16:35 Temperature 94.5 F L 94.6 F L Pulse Rate 73 74 Respiratory Rate 20 20 Blood Pressure 98/62 Pulse Oximetry 92 92 Oxygen Delivery Method 10/21/23 16:40 10/21/23 16:40 10/21/23 16:45 Temperature 94.8 F L 94.8 F L Pulse Rate 76 79 Respiratory Rate 20 20 Blood Pressure 105/63 Pulse Oximetry 93 93 Oxygen Delivery Method 10/21/23 16:45 10/21/23 16:50 10/21/23 16:50 Temperature 95.0 F L Pulse Rate 86 Respiratory Rate Blood Pressure 108/62 112/66 Pulse Oximetry 91 Oxygen Delivery Method 10/21/23 16:55 10/21/23 16:55 10/21/23 17:00 Temperature 95.2 F L 95.2 F L Pulse Rate 86 105 H Respiratory Rate 20 49 H Blood Pressure 108/60 Pulse Oximetry 94 91 Oxygen Delivery Method 10/21/23 17:05 10/21/23 17:05 10/21/23 17:12 Temperature 95.4 F L 95.5 F L Pulse Rate 101 H 102 H Respiratory Rate 37 H 36 H Blood Pressure 132/80 Pulse Oximetry 93 Oxygen Delivery Method 10/21/23 17:26 10/21/23 17:26 10/21/23 17:30 Temperature 96.1 F L Pulse Rate 101 H Respiratory Rate 41 H Blood Pressure 109/60 98/57 L Pulse Oximetry 91 Oxygen Delivery Method Mechanical Ventilation 10/21/23 17:30 10/21/23 17:38 10/21/23 17:38 Temperature 96.3 F L 96.6 F L Pulse Rate 93 H 91 H Respiratory Rate 20 20 Blood Pressure 88/55 L Pulse Oximetry 97 97 Oxygen Delivery Method Mechanical Ventilation 10/21/23 17:40 10/21/23 17:40 10/21/23 17:45 Temperature 96.8 F L 97.0 F L Pulse Rate 91 H 86 Respiratory Rate 20 20 Blood Pressure 88/58 L Pulse Oximetry 97 98 Oxygen Delivery Method 10/21/23 17:45 10/21/23 17:50 10/21/23 17:50 Temperature 97.2 F L Pulse Rate 79 Respiratory Rate 20 Blood Pressure 79/52 L 82/52 L Pulse Oximetry 97 Oxygen Delivery Method 10/21/23 17:55 10/21/23 17:55 10/21/23 18:00 Temperature 97.3 F L 97.5 F L Pulse Rate 84 82 Respiratory Rate 20 20 Blood Pressure 84/50 L Pulse Oximetry 98 97 Oxygen Delivery Method 10/21/23 18:00 10/21/23 18:05 10/21/23 18:05 Temperature 97.7 F Pulse Rate 81 Respiratory Rate 20 Blood Pressure 79/50 L 75/51 L Pulse Oximetry 98 Oxygen Delivery Method 10/21/23 18:10 10/21/23 18:10 10/21/23 18:15 Temperature 97.9 F 98.1 F Pulse Rate 78 66 Respiratory Rate 20 20 Blood Pressure 74/52 L Pulse Oximetry 98 100 Oxygen Delivery Method 10/21/23 18:15 10/21/23 18:20 10/21/23 18:20 Temperature 98.2 F Pulse Rate 72 Respiratory Rate 20 Blood Pressure 141/77 H 137/74 Pulse Oximetry 100 Oxygen Delivery Method 10/21/23 18:25 10/21/23 18:25 10/21/23 18:30 Temperature 98.6 F 98.8 F Pulse Rate 72 73 Respiratory Rate 20 20 Blood Pressure 131/72 Pulse Oximetry 100 100 Oxygen Delivery Method 10/21/23 18:30 10/21/23 18:35 10/21/23 18:35 Temperature 99.0 F Pulse Rate 73 Respiratory Rate 20 Blood Pressure 118/65 122/68 Pulse Oximetry 99 Oxygen Delivery Method 10/21/23 18:40 10/21/23 18:40 10/21/23 18:45 Temperature 99.0 F Pulse Rate 75 Respiratory Rate 20 Blood Pressure 118/70 116/66 Pulse Oximetry 99 Oxygen Delivery Method 10/21/23 18:45 10/21/23 18:50 10/21/23 18:50 Temperature 99.1 F 99.3 F Pulse Rate 75 75 Respiratory Rate 20 21 Blood Pressure 112/64 Pulse Oximetry 99 100 Oxygen Delivery Method 10/21/23 18:55 10/21/23 18:55 10/21/23 19:00 Temperature 99.3 F 99.5 F Pulse Rate 85 81 Respiratory Rate 24 Blood Pressure 105/62 Pulse Oximetry 97 99 Oxygen Delivery Method 10/21/23 19:00 10/21/23 19:05 10/21/23 19:05 Temperature 99.5 F Pulse Rate 81 Respiratory Rate Blood Pressure 93/51 L 91/50 L Pulse Oximetry 98 Oxygen Delivery Method 10/21/23 19:10 10/21/23 19:10 10/21/23 19:15 Temperature 99.7 F H 99.7 F H Pulse Rate 77 80 Respiratory Rate 20 20 Blood Pressure 129/73 Pulse Oximetry 99 99 Oxygen Delivery Method 10/21/23 19:15 10/21/23 19:20 10/21/23 19:20 Temperature 99.7 F H Pulse Rate 80 Respiratory Rate 24 Blood Pressure 135/75 144/78 H Pulse Oximetry 98 Oxygen Delivery Method 10/21/23 19:25 10/21/23 19:25 10/21/23 19:30 Temperature 99.7 F H 99.7 F H Pulse Rate 82 77 Respiratory Rate 21 21 Blood Pressure 102/63 Pulse Oximetry 99 98 Oxygen Delivery Method 10/21/23 19:30 10/21/23 19:35 10/21/23 19:35 Temperature 99.9 F H Pulse Rate 77 Respiratory Rate 21 Blood Pressure 80/52 L 151/77 H Pulse Oximetry 100 Oxygen Delivery Method 10/21/23 19:40 10/21/23 19:40 10/21/23 19:45 Temperature 99.9 F H 99.9 F H Pulse Rate 78 79 Respiratory Rate 20 20 Blood Pressure 150/77 H Pulse Oximetry 100 100 Oxygen Delivery Method 10/21/23 19:45 10/21/23 19:50 10/21/23 19:50 Temperature 99.9 F H Pulse Rate 81 Respiratory Rate 20 Blood Pressure 146/79 H 135/67 Pulse Oximetry 100 Oxygen Delivery Method 10/21/23 19:55 10/21/23 19:55 10/21/23 20:00 Temperature 99.9 F H Pulse Rate 80 Respiratory Rate 20 Blood Pressure 118/57 L 109/58 L Pulse Oximetry 100 Oxygen Delivery Method 10/21/23 20:00 10/21/23 20:05 10/21/23 20:05 Temperature 99.9 F H 99.9 F H Pulse Rate 77 78 Respiratory Rate 20 20 Blood Pressure 110/57 L Pulse Oximetry 100 100 Oxygen Delivery Method 10/21/23 20:10 10/21/23 20:10 10/21/23 20:15 Temperature 99.9 F H Pulse Rate 78 Respiratory Rate 20 Blood Pressure 115/62 119/63 Pulse Oximetry 100 Oxygen Delivery Method 10/21/23 20:15 10/21/23 20:20 10/21/23 20:20 Temperature 99.9 F H 100.0 F H Pulse Rate 79 79 Respiratory Rate 20 20 Blood Pressure 120/66 Pulse Oximetry 100 100 Oxygen Delivery Method 10/21/23 20:25 10/21/23 20:25 10/21/23 20:30 Temperature 100.0 F H Pulse Rate 79 Respiratory Rate 20 Blood Pressure 128/67 123/66 Pulse Oximetry 100 Oxygen Delivery Method 10/21/23 20:30 10/21/23 20:35 10/21/23 20:35 Temperature 100.0 F H 100.0 F H Pulse Rate 78 78 Respiratory Rate 20 20 Blood Pressure 120/65 Pulse Oximetry 100 100 Oxygen Delivery Method 10/21/23 20:40 10/21/23 20:40 10/21/23 20:45 Temperature 100.0 F H 100.0 F H Pulse Rate 78 78 Respiratory Rate 20 20 Blood Pressure 130/67 Pulse Oximetry 100 100 Oxygen Delivery Method 10/21/23 20:45 10/21/23 20:50 10/21/23 20:50 Temperature 100.0 F H Pulse Rate 79 Respiratory Rate 20 Blood Pressure 127/70 127/69 Pulse Oximetry 100 Oxygen Delivery Method 10/21/23 20:55 10/21/23 20:55 10/21/23 21:00 Temperature 100.0 F H 100.0 F H Pulse Rate 77 77 Respiratory Rate 20 20 Blood Pressure 134/70 Pulse Oximetry 100 100 Oxygen Delivery Method 10/21/23 21:00 10/21/23 21:05 10/21/23 21:05 Temperature 100.0 F H Pulse Rate 76 Respiratory Rate 21 Blood Pressure 133/69 134/70 Pulse Oximetry 100 Oxygen Delivery Method 10/21/23 21:10 10/21/23 21:10 10/21/23 21:15 Temperature 100.2 F H 100.2 F H Pulse Rate 78 78 Respiratory Rate 20 20 Blood Pressure 136/71 Pulse Oximetry 100 100 Oxygen Delivery Method 10/21/23 21:15 10/21/23 21:20 10/21/23 21:20 Temperature 100.2 F H Pulse Rate 71 Respiratory Rate 21 Blood Pressure 137/71 128/68 Pulse Oximetry 100 Oxygen Delivery Method 10/21/23 21:25 10/21/23 21:25 10/21/23 21:30 Temperature 100.2 F H 100.2 F H Pulse Rate 79 76 Respiratory Rate 20 21 Blood Pressure 139/72 Pulse Oximetry 100 100 Oxygen Delivery Method 10/21/23 21:30 10/21/23 21:35 10/21/23 21:35 Temperature 100.2 F H Pulse Rate 72 Respiratory Rate 21 Blood Pressure 139/75 133/69 Pulse Oximetry 100 Oxygen Delivery Method 10/21/23 21:40 10/21/23 21:40 10/21/23 21:45 Temperature 100.2 F H Pulse Rate 79 Respiratory Rate 20 Blood Pressure 140/71 136/69 Pulse Oximetry 100 Oxygen Delivery Method 10/21/23 21:45 Temperature 100.4 F H Pulse Rate 77 Respiratory Rate 21 Blood Pressure Pulse Oximetry 100 Oxygen Delivery Method <Marcela Will MD - Last Filed: 10/22/23 07:06> Orders Ordered: Discontinued Medications Albuterol/Ipratropium (Albuterol/Ipratropium 3 Ml Ampul) 3 ml INH NOW ONE Stop: 10/21/23 14:08 Last Admin: 10/21/23 15:23 Dose: 3 ml Documented By: Bumetanide (Bumetanide 1 Mg/4 Ml Vial) 2 mg IV NOW ONE Stop: 10/21/23 20:10 Last Admin: 10/21/23 20:19 Dose: 2 mg Documented By: Furosemide (Furosemide 40 Mg/4 Ml Vial) 60 mg IV NOW ONE Stop: 10/21/23 19:01 Last Admin: 10/21/23 19:10 Dose: 60 mg Documented By: Sodium Chloride (Normal Saline 0.9%) 1,000 mls @ 1,000 mls/hr IV BOLUS ONE Stop: 10/21/23 15:06 Last Infusion: 10/21/23 15:08 Dose: Infused Documented By: Admin: 10/21/23 14:10 Dose: 1,000 mls/hr Documented By: Ceftriaxone Sodium 1,000 mg/ (Sodium Chloride) 100 mls @ 200 mls/hr IV NOW ONE Stop: 10/21/23 14:08 Last Infusion: 10/21/23 16:03 Dose: Infused Documented By: Admin: 10/21/23 15:16 Dose: 200 mls/hr Documented By: Fentanyl 1,000 mcg/ Dextrose 250 mls @ 23.02 mls/hr IV TITRATE MANAN; Protocol Last Titration: 10/21/23 21:18 Dose: Infused Documented By: Titration: 10/21/23 18:55 Dose: 0 mcg/kg/hr, 0 mls/hr Documented By: Admin: 10/21/23 17:19 Dose: 0.7 mcg/kg/hr, 22.9 mls/hr Documented By: SPF Midazolam HCl 50 mg/ Dextrose 50 mls @ 5 mls/hr IV TITRATE PRN; Protocol PRN Reason: intubation Last Titration: 10/21/23 21:17 Dose: Infused Documented By: Titration: 10/21/23 17:41 Dose: 0 mg/hr, 0 mls/hr Documented By: Admin: 10/21/23 17:23 Dose: 5 mg/hr, 5 mls/hr Documented By: SPF Furosemide 60 mg/ Sodium (Chloride) 56 mls @ 112 mls/hr IV NOW ONE Stop: 10/21/23 17:39 Last Admin: 10/21/23 19:01 Dose: Not Given Documented By: Sodium Chloride (Normal Saline 0.9%) 1,000 mls @ 125 mls/hr IV CONT MANAN Last Admin: 10/21/23 17:42 Dose: 125 mls/hr Documented By: SPF NOREPINEPHRINE BITARTRATE/D5W (Levophed) 4 mg in 250 mls @ 49.328 mls/hr IV TITRATE MANAN; Protocol Last Admin: 10/21/23 22:14 Dose: 0.07 mcg/kg/min, 36.8 mls/hr Documented By: Titration: 10/21/23 22:14 Dose: Infused Documented By: JJuanD avid Titration: 10/21/23 19:49 Dose: 0.07 mcg/kg/min, 36.8 mls/hr Documented By: Titration: 10/21/23 19:31 Dose: 0.1 mcg/kg/min, 49.1 mls/hr Documented By: Titration: 10/21/23 19:22 Dose: 0.05 mcg/kg/min, 24.664 mls/hr Documented By: Titration: 10/21/23 19:06 Dose: 0.1 mcg/kg/min, 49.1 mls/hr Documented By: Titration: 10/21/23 18:16 Dose: 0.05 mcg/kg/min, 24.664 mls/hr Documented By: Admin: 10/21/23 18:07 Dose: 0.1 mcg/kg/min, 49.1 mls/hr Documented By: Propofol (Propofol) 1,000 mg in 100 mls @ 39.463 mls/hr IV TITRATE MANAN; Protocol Last Admin: 10/21/23 21:57 Dose: 20 mcg/kg/min, 15.785 mls/hr Documented By: JJuan David Titration: 10/21/23 21:57 Dose: Infused Documented By: Titration: 10/21/23 20:27 Dose: 20 mcg/kg/min, 15.785 mls/hr Documented By: Titration: 10/21/23 20:04 Dose: 30 mcg/kg/min, 23.678 mls/hr Documented By: Titration: 10/21/23 19:36 Dose: 39.78 mcg/kg/min, 31.4 mls/hr Documented By: Admin: 10/21/23 18:47 Dose: 49.79 mcg/kg/min, 39.3 mls/hr Documented By: Furosemide 60 mg/ Sodium (Chloride) 56 mls @ 112 mls/hr IV NOW ONE Stop: 10/21/23 18:38 Last Admin: 10/21/23 19:02 Dose: Not Given Documented By: Ketamine HCl (Ketamine 500 Mg/5 Ml Inj) 100 mg IV NOW ONE Stop: 10/21/23 16:51 Last Admin: 10/21/23 16:53 Dose: 100 mg Documented By: Ketamine HCl (Ketamine 500 Mg/5 Ml Inj) 100 mg IV NOW ONE Stop: 10/21/23 17:00 Last Admin: 10/21/23 17:04 Dose: 100 mg Documented By: Methylprednisolone (Methylprednisolone 125 Mg/2 Ml Vial) 125 mg IV NOW ONE Stop: 10/21/23 14:08 Last Admin: 10/21/23 15:07 Dose: 125 mg Documented By: Vital Signs Vital signs: Vital Signs - 8 hr 10/21/23 14:16 10/21/23 14:16 10/21/23 14:20 Temperature 91.0 F L 91.8 F L Pulse Rate 101 H 92 H Respiratory Rate 18 23 Blood Pressure 130/84 Pulse Oximetry 97 97 Oxygen Delivery Method 10/21/23 14:20 10/21/23 14:30 10/21/23 14:36 Temperature 92.5 F L 92.5 F L Pulse Rate 81 78 Respiratory Rate 20 20 Blood Pressure 136/74 Pulse Oximetry 94 93 Oxygen Delivery Method 10/21/23 14:36 10/21/23 14:39 10/21/23 14:39 Temperature 92.7 F L Pulse Rate 77 Respiratory Rate Blood Pressure 157/88 H 176/90 H Pulse Oximetry 94 Oxygen Delivery Method 10/21/23 14:45 10/21/23 14:45 10/21/23 14:50 Temperature 92.7 F L 92.7 F L Pulse Rate 77 82 Respiratory Rate 20 27 H Blood Pressure 162/88 H Pulse Oximetry 95 95 Oxygen Delivery Method 10/21/23 14:50 10/21/23 14:55 10/21/23 14:55 Temperature 92.8 F L Pulse Rate 68 Respiratory Rate 20 Blood Pressure 169/96 H 174/81 H Pulse Oximetry 96 Oxygen Delivery Method 10/21/23 14:59 10/21/23 14:59 10/21/23 15:00 Temperature 92.8 F L 92.8 F L Pulse Rate 65 66 Respiratory Rate 38 H Blood Pressure 157/80 H Pulse Oximetry 95 95 Oxygen Delivery Method 10/21/23 15:00 10/21/23 15:05 10/21/23 15:05 Temperature 93.0 F L Pulse Rate 74 Respiratory Rate 20 Blood Pressure 146/82 H 158/90 H Pulse Oximetry 94 Oxygen Delivery Method 10/21/23 15:10 10/21/23 15:10 10/21/23 15:15 Temperature 93.0 F L 93.2 F L Pulse Rate 67 67 Respiratory Rate 20 20 Blood Pressure 131/74 Pulse Oximetry 92 89 L Oxygen Delivery Method 10/21/23 15:15 10/21/23 15:20 10/21/23 15:20 Temperature 93.2 F L Pulse Rate 64 Respiratory Rate 20 Blood Pressure 122/66 108/62 Pulse Oximetry 89 L Oxygen Delivery Method 10/21/23 15:25 10/21/23 15:25 10/21/23 15:30 Temperature 93.4 F L Pulse Rate 62 Respiratory Rate 20 Blood Pressure 107/64 103/65 Pulse Oximetry 92 Oxygen Delivery Method 10/21/23 15:30 10/21/23 15:35 10/21/23 15:35 Temperature 93.4 F L 93.6 F L Pulse Rate 62 64 Respiratory Rate 20 20 Blood Pressure 103/65 Pulse Oximetry 90 L 90 L Oxygen Delivery Method 10/21/23 15:40 10/21/23 15:40 10/21/23 15:45 Temperature 93.6 F L 93.7 F L Pulse Rate 64 63 Respiratory Rate 20 21 Blood Pressure 102/62 Pulse Oximetry 90 L 91 Oxygen Delivery Method 10/21/23 15:45 10/21/23 15:50 10/21/23 15:50 Temperature 93.7 F L Pulse Rate 64 Respiratory Rate 20 Blood Pressure 103/63 104/64 Pulse Oximetry 93 Oxygen Delivery Method 10/21/23 15:55 10/21/23 15:55 10/21/23 16:00 Temperature 93.9 F L 93.9 F L Pulse Rate 66 63 Respiratory Rate 20 20 Blood Pressure 111/67 Pulse Oximetry 93 92 Oxygen Delivery Method 10/21/23 16:00 10/21/23 16:05 10/21/23 16:05 Temperature 94.1 F L Pulse Rate 66 Respiratory Rate 20 Blood Pressure 98/60 109/65 Pulse Oximetry 94 Oxygen Delivery Method 10/21/23 16:10 10/21/23 16:10 10/21/23 16:18 Temperature 94.1 F L 94.3 F L Pulse Rate 65 71 Respiratory Rate 21 20 Blood Pressure 102/61 Pulse Oximetry 94 93 Oxygen Delivery Method 10/21/23 16:18 10/21/23 16:20 10/21/23 16:20 Temperature 94.3 F L Pulse Rate 70 Respiratory Rate 20 Blood Pressure 109/66 109/68 Pulse Oximetry 92 Oxygen Delivery Method 10/21/23 16:25 10/21/23 16:25 10/21/23 16:30 Temperature 94.5 F L Pulse Rate 69 Respiratory Rate 20 Blood Pressure 100/60 100/61 Pulse Oximetry 90 L Oxygen Delivery Method 10/21/23 16:30 10/21/23 16:35 10/21/23 16:35 Temperature 94.5 F L 94.6 F L Pulse Rate 73 74 Respiratory Rate 20 20 Blood Pressure 98/62 Pulse Oximetry 92 92 Oxygen Delivery Method 10/21/23 16:40 10/21/23 16:40 10/21/23 16:45 Temperature 94.8 F L 94.8 F L Pulse Rate 76 79 Respiratory Rate 20 20 Blood Pressure 105/63 Pulse Oximetry 93 93 Oxygen Delivery Method 10/21/23 16:45 10/21/23 16:50 10/21/23 16:50 Temperature 95.0 F L Pulse Rate 86 Respiratory Rate Blood Pressure 108/62 112/66 Pulse Oximetry 91 Oxygen Delivery Method 10/21/23 16:55 10/21/23 16:55 10/21/23 17:00 Temperature 95.2 F L 95.2 F L Pulse Rate 86 105 H Respiratory Rate 20 49 H Blood Pressure 108/60 Pulse Oximetry 94 91 Oxygen Delivery Method 10/21/23 17:05 10/21/23 17:05 10/21/23 17:12 Temperature 95.4 F L 95.5 F L Pulse Rate 101 H 102 H Respiratory Rate 37 H 36 H Blood Pressure 132/80 Pulse Oximetry 93 Oxygen Delivery Method 10/21/23 17:26 10/21/23 17:26 10/21/23 17:30 Temperature 96.1 F L Pulse Rate 101 H Respiratory Rate 41 H Blood Pressure 109/60 98/57 L Pulse Oximetry 91 Oxygen Delivery Method Mechanical Ventilation 10/21/23 17:30 10/21/23 17:38 10/21/23 17:38 Temperature 96.3 F L 96.6 F L Pulse Rate 93 H 91 H Respiratory Rate 20 20 Blood Pressure 88/55 L Pulse Oximetry 97 97 Oxygen Delivery Method Mechanical Ventilation 10/21/23 17:40 10/21/23 17:40 10/21/23 17:45 Temperature 96.8 F L 97.0 F L Pulse Rate 91 H 86 Respiratory Rate 20 20 Blood Pressure 88/58 L Pulse Oximetry 97 98 Oxygen Delivery Method 10/21/23 17:45 10/21/23 17:50 10/21/23 17:50 Temperature 97.2 F L Pulse Rate 79 Respiratory Rate 20 Blood Pressure 79/52 L 82/52 L Pulse Oximetry 97 Oxygen Delivery Method 10/21/23 17:55 10/21/23 17:55 10/21/23 18:00 Temperature 97.3 F L 97.5 F L Pulse Rate 84 82 Respiratory Rate 20 20 Blood Pressure 84/50 L Pulse Oximetry 98 97 Oxygen Delivery Method 10/21/23 18:00 10/21/23 18:05 10/21/23 18:05 Temperature 97.7 F Pulse Rate 81 Respiratory Rate 20 Blood Pressure 79/50 L 75/51 L Pulse Oximetry 98 Oxygen Delivery Method 10/21/23 18:10 10/21/23 18:10 10/21/23 18:15 Temperature 97.9 F 98.1 F Pulse Rate 78 66 Respiratory Rate 20 20 Blood Pressure 74/52 L Pulse Oximetry 98 100 Oxygen Delivery Method 10/21/23 18:15 10/21/23 18:20 10/21/23 18:20 Temperature 98.2 F Pulse Rate 72 Respiratory Rate 20 Blood Pressure 141/77 H 137/74 Pulse Oximetry 100 Oxygen Delivery Method 10/21/23 18:25 10/21/23 18:25 10/21/23 18:30 Temperature 98.6 F 98.8 F Pulse Rate 72 73 Respiratory Rate 20 20 Blood Pressure 131/72 Pulse Oximetry 100 100 Oxygen Delivery Method 10/21/23 18:30 10/21/23 18:35 10/21/23 18:35 Temperature 99.0 F Pulse Rate 73 Respiratory Rate 20 Blood Pressure 118/65 122/68 Pulse Oximetry 99 Oxygen Delivery Method 10/21/23 18:40 10/21/23 18:40 10/21/23 18:45 Temperature 99.0 F Pulse Rate 75 Respiratory Rate 20 Blood Pressure 118/70 116/66 Pulse Oximetry 99 Oxygen Delivery Method 10/21/23 18:45 10/21/23 18:50 10/21/23 18:50 Temperature 99.1 F 99.3 F Pulse Rate 75 75 Respiratory Rate 20 21 Blood Pressure 112/64 Pulse Oximetry 99 100 Oxygen Delivery Method 10/21/23 18:55 10/21/23 18:55 10/21/23 19:00 Temperature 99.3 F 99.5 F Pulse Rate 85 81 Respiratory Rate 24 Blood Pressure 105/62 Pulse Oximetry 97 99 Oxygen Delivery Method 10/21/23 19:00 10/21/23 19:05 10/21/23 19:05 Temperature 99.5 F Pulse Rate 81 Respiratory Rate Blood Pressure 93/51 L 91/50 L Pulse Oximetry 98 Oxygen Delivery Method 10/21/23 19:10 10/21/23 19:10 10/21/23 19:15 Temperature 99.7 F H 99.7 F H Pulse Rate 77 80 Respiratory Rate 20 20 Blood Pressure 129/73 Pulse Oximetry 99 99 Oxygen Delivery Method 10/21/23 19:15 10/21/23 19:20 10/21/23 19:20 Temperature 99.7 F H Pulse Rate 80 Respiratory Rate 24 Blood Pressure 135/75 144/78 H Pulse Oximetry 98 Oxygen Delivery Method 10/21/23 19:25 10/21/23 19:25 10/21/23 19:30 Temperature 99.7 F H 99.7 F H Pulse Rate 82 77 Respiratory Rate 21 21 Blood Pressure 102/63 Pulse Oximetry 99 98 Oxygen Delivery Method 10/21/23 19:30 10/21/23 19:35 10/21/23 19:35 Temperature 99.9 F H Pulse Rate 77 Respiratory Rate 21 Blood Pressure 80/52 L 151/77 H Pulse Oximetry 100 Oxygen Delivery Method 10/21/23 19:40 10/21/23 19:40 10/21/23 19:45 Temperature 99.9 F H 99.9 F H Pulse Rate 78 79 Respiratory Rate 20 20 Blood Pressure 150/77 H Pulse Oximetry 100 100 Oxygen Delivery Method 10/21/23 19:45 10/21/23 19:50 10/21/23 19:50 Temperature 99.9 F H Pulse Rate 81 Respiratory Rate 20 Blood Pressure 146/79 H 135/67 Pulse Oximetry 100 Oxygen Delivery Method 10/21/23 19:55 10/21/23 19:55 10/21/23 20:00 Temperature 99.9 F H Pulse Rate 80 Respiratory Rate 20 Blood Pressure 118/57 L 109/58 L Pulse Oximetry 100 Oxygen Delivery Method 10/21/23 20:00 10/21/23 20:05 10/21/23 20:05 Temperature 99.9 F H 99.9 F H Pulse Rate 77 78 Respiratory Rate 20 20 Blood Pressure 110/57 L Pulse Oximetry 100 100 Oxygen Delivery Method 10/21/23 20:10 10/21/23 20:10 10/21/23 20:15 Temperature 99.9 F H Pulse Rate 78 Respiratory Rate 20 Blood Pressure 115/62 119/63 Pulse Oximetry 100 Oxygen Delivery Method 10/21/23 20:15 10/21/23 20:20 10/21/23 20:20 Temperature 99.9 F H 100.0 F H Pulse Rate 79 79 Respiratory Rate 20 20 Blood Pressure 120/66 Pulse Oximetry 100 100 Oxygen Delivery Method 10/21/23 20:25 10/21/23 20:25 10/21/23 20:30 Temperature 100.0 F H Pulse Rate 79 Respiratory Rate 20 Blood Pressure 128/67 123/66 Pulse Oximetry 100 Oxygen Delivery Method 10/21/23 20:30 10/21/23 20:35 10/21/23 20:35 Temperature 100.0 F H 100.0 F H Pulse Rate 78 78 Respiratory Rate 20 20 Blood Pressure 120/65 Pulse Oximetry 100 100 Oxygen Delivery Method 10/21/23 20:40 10/21/23 20:40 10/21/23 20:45 Temperature 100.0 F H 100.0 F H Pulse Rate 78 78 Respiratory Rate 20 20 Blood Pressure 130/67 Pulse Oximetry 100 100 Oxygen Delivery Method 10/21/23 20:45 10/21/23 20:50 10/21/23 20:50 Temperature 100.0 F H Pulse Rate 79 Respiratory Rate 20 Blood Pressure 127/70 127/69 Pulse Oximetry 100 Oxygen Delivery Method 10/21/23 20:55 10/21/23 20:55 10/21/23 21:00 Temperature 100.0 F H 100.0 F H Pulse Rate 77 77 Respiratory Rate 20 20 Blood Pressure 134/70 Pulse Oximetry 100 100 Oxygen Delivery Method 10/21/23 21:00 10/21/23 21:05 10/21/23 21:05 Temperature 100.0 F H Pulse Rate 76 Respiratory Rate 21 Blood Pressure 133/69 134/70 Pulse Oximetry 100 Oxygen Delivery Method 10/21/23 21:10 10/21/23 21:10 10/21/23 21:15 Temperature 100.2 F H 100.2 F H Pulse Rate 78 78 Respiratory Rate 20 20 Blood Pressure 136/71 Pulse Oximetry 100 100 Oxygen Delivery Method 10/21/23 21:15 10/21/23 21:20 10/21/23 21:20 Temperature 100.2 F H Pulse Rate 71 Respiratory Rate 21 Blood Pressure 137/71 128/68 Pulse Oximetry 100 Oxygen Delivery Method 10/21/23 21:25 10/21/23 21:25 10/21/23 21:30 Temperature 100.2 F H 100.2 F H Pulse Rate 79 76 Respiratory Rate 20 21 Blood Pressure 139/72 Pulse Oximetry 100 100 Oxygen Delivery Method 10/21/23 21:30 10/21/23 21:35 10/21/23 21:35 Temperature 100.2 F H Pulse Rate 72 Respiratory Rate 21 Blood Pressure 139/75 133/69 Pulse Oximetry 100 Oxygen Delivery Method 10/21/23 21:40 10/21/23 21:40 10/21/23 21:45 Temperature 100.2 F H Pulse Rate 79 Respiratory Rate 20 Blood Pressure 140/71 136/69 Pulse Oximetry 100 Oxygen Delivery Method 10/21/23 21:45 Temperature 100.4 F H Pulse Rate 77 Respiratory Rate 21 Blood Pressure Pulse Oximetry 100 Oxygen Delivery Method Medical Decision Making <Pedro Lucero, - Last Filed: 10/22/23 07:08> Medical Records Medical records reviewed: Yes I reviewed the patient's medical records. Lab Data Lab results reviewed: Yes I reviewed the patient's lab results. 10/21/23 14:36 10/21/23 16:05 Labs: Lab Results 10/21/23 10/21/23 10/21/23 Range/Units 14:15 14:15 14:31 WBC (4.5-11.0) X10^3/uL RBC (4.5-5.9) X10^6/uL Hgb (13.5-17.5) g/dL Hct (41-53) % MCV (80-100) fL MCH (26-34) PG MCHC (30-36) % RDW (11.6-14.8) % Plt Count (150-400) X10^3/uL Neut % (Auto) (50-75) % Lymph % (Auto) (25-40) % [place] % (Auto) (3-14) % Eos % (Auto) (2-4) % Baso % (Auto) (0-2) % Neut # (Auto) (0563-1066) /uL Lymph # (Auto) (7798-2357) /uL [place] # (Auto) (0-900) /uL Eos # (Auto) (0-450) /uL Baso # (Auto) (0-100) /uL PT (9.4-12.5) SECONDS INR (0.9-1.3) APTT (25.1-36.5) SECONDS ABG pH 7.11 L* (7.35-7.45) ABG pCO2 121.9 H* (35-45) mmHg ABG pO2 83 (80-100) mmHg ABG HCO3 23 (23-27) mmol/L ABG Total CO2 23 (23-27) mmol/L ABG O2 Saturation 90 L (95-100) % ABG Base Excess -4.0 L (-2-3) mmol/L Respiration Rate 39 O2 Delivery Device Vent FiO2 100 Sodium (137-145) mmol/L Potassium (3.4-5.1) mmol/L Chloride (98-107) mmol/L Carbon Dioxide (22-32) mmol/L BUN (9-20) mg/dL Creatinine (0.66-1.25) mg/dL Estimated GFR (>60) mL/min BUN/Creatinine Ratio (6-22) Glucose (80-110) mg/dL Lactate (0.7-2.1) mmol/L Calcium (8.4-10.2) mg/dL Magnesium (1.6-2.3) mg/dL Total Bilirubin (0.2-1.3) mg/dL AST (17-59) IU/L ALT (<50) IU/L Alkaline Phosphatase (38-126) U/L Total Creatine Kinase (55-170) U/L Troponin I (0.01-0.034) ng/mL NT-Pro-B Natriuret Pep Total Protein (6.3-8.2) g/dL Albumin (3.5-5.0) g/dL Globulin (1.7-4.1) g/dL Albumin/Globulin Ratio (1.0-2.8) Lipase (23-300) U/L Procalcitonin Urine Color Yellow Urine Appearance Clear Urine pH 5.0 Normal (4.5-8.0) Ur Specific [place] >=1.030 H (1.000-1.035) Urine Protein Trace H (Negative) Urine Glucose (UA) Negative (Negative) g/dL Urine Ketones Negative (NEGATIVE) Urine Occult Blood Negative (Negative) Urine Nitrate Negative (Negative) Urine Bilirubin Negative (NEGATIVE) Urine Urobilinogen 1.0 (0.2) E.U./dL Ur Leukocyte Esterase Negative (NEGATIVE) Urine RBC 0-1/hpf (0-5/HPF) Urine WBC None seen (0-5/HPF) Ur Squamous Epith Cells 0-1 /hpf (0-5/HPF) Ur Transition Epith Cell 0-1/hpf (0-5/HPF) Urine Bacteria None seen (None) Hyaline Casts 1-5/lpf (None) Ur Culture Indicated? Cult not indicated Vol Urine Centrifuged 10ml (spun) U Opiates 300ng/mL cut Positive H (Negative) Ur Oxycodone Screen Negative (Negative) Urine Methadone Screen Negative (Negative) Ur Barbiturates Screen Negative (Negative) U Tricyclic Antidepress Negative (Negative) Ur Phencyclidine Scrn Negative (Negative) Ur Amphetamines Screen Negative (Negative) U Methamphetamines Scrn Negative (Negative) Ur MDMA Scrn (Ecstasy) Negative (Negative) U Benzodiazepines Scrn Negative (Negative) Urine Cocaine Screen Negative (Negative) U Marijuana (THC) Screen Negative (Negative) Urine Specific [place] Normal (Normal) Ethyl Alcohol ( - 10) mg/dL Ur Creatinine Normal (Normal) Chlamy pneumoniae PCR (Not Detect) Adenovirus (PCR) (Not Detect) B.parapertussis DNA PCR (Not Detecte) Coronavirus OC43 (PCR) (Not Detect) Coronavirus HKU1 (PCR) (Not Detect) Coronavirus 229E (PCR) (Not Detect) SARS-CoV-2 (PCR) (Not Detecte) Coronavirus NL63 (PCR) (Not Detect) Human Metapneumovir PCR (Not Detect) Influenza Type A (PCR) (Not Detect) Influenza Type B (PCR) (Not Detect) M. pneumoniae (PCR) (Not Detect) Parainfluenza 1 (PCR) (Not Detect) Parainfluenza 2 (PCR) (Not Detect) Parainfluenza 3 (PCR) (Not Detect) Parainfluenza 4 (PCR) (Not Detect) RSV (PCR) (Not Detect) Entero/Rhino (PCR) (Not Detect) 10/21/23 10/21/23 10/21/23 Range/Units 14:36 15:23 16:05 WBC 15.6 H (4.5-11.0) X10^3/uL RBC 4.86 (4.5-5.9) X10^6/uL Hgb 13.7 (13.5-17.5) g/dL Hct 44.8 (41-53) % MCV 92.0 (80-100) fL MCH 28.1 (26-34) PG MCHC 30.5 (30-36) % RDW 15.9 H (11.6-14.8) % Plt Count 332 (150-400) X10^3/uL Neut % (Auto) 78.7 H (50-75) % Lymph % (Auto) 12.7 L (25-40) % [place] % (Auto) 8.0 (3-14) % Eos % (Auto) 0.0 L (2-4) % Baso % (Auto) 0.6 (0-2) % Neut # (Auto) 60399 H (1779-3974) /uL Lymph # (Auto) 2000 (5522-0849) /uL [place] # (Auto) 1200 H (0-900) /uL Eos # (Auto) 0 (0-450) /uL Baso # (Auto) 100 (0-100) /uL PT (9.4-12.5) SECONDS INR (0.9-1.3) APTT (25.1-36.5) SECONDS ABG pH (7.35-7.45) ABG pCO2 (35-45) mmHg ABG pO2 (80-100) mmHg ABG HCO3 (23-27) mmol/L ABG Total CO2 (23-27) mmol/L ABG O2 Saturation (95-100) % ABG Base Excess (-2-3) mmol/L Respiration Rate O2 Delivery Device FiO2 Sodium 141 (137-145) mmol/L Potassium 4.4 (3.4-5.1) mmol/L Chloride 95 L (98-107) mmol/L Carbon Dioxide > 40 H* (22-32) mmol/L BUN 59 H (9-20) mg/dL Creatinine 2.30 H (0.66-1.25) mg/dL Estimated GFR 30 L (>60) mL/min BUN/Creatinine Ratio 25.7 H (6-22) Glucose 117 H (80-110) mg/dL Lactate 1.6 (0.7-2.1) mmol/L Calcium 8.6 (8.4-10.2) mg/dL Magnesium 2.0 (1.6-2.3) mg/dL Total Bilirubin 0.5 (0.2-1.3) mg/dL AST 40 (17-59) IU/L ALT 25 (<50) IU/L Alkaline Phosphatase 76 (38-126) U/L Total Creatine Kinase 726 H (55-170) U/L Troponin I 0.058 H (0.01-0.034) ng/mL NT-Pro-B Natriuret Pep TNP Total Protein 6.8 (6.3-8.2) g/dL Albumin 3.8 (3.5-5.0) g/dL Globulin 3.0 (1.7-4.1) g/dL Albumin/Globulin Ratio 1.3 (1.0-2.8) Lipase 106 (23-300) U/L Procalcitonin TNP Urine Color Urine Appearance Urine pH (4.5-8.0) Ur Specific [place] (1.000-1.035) Urine Protein (Negative) Urine Glucose (UA) (Negative) g/dL Urine Ketones (NEGATIVE) Urine Occult Blood (Negative) Urine Nitrate (Negative) Urine Bilirubin (NEGATIVE) Urine Urobilinogen (0.2) E.U./dL Ur Leukocyte Esterase (NEGATIVE) Urine RBC (0-5/HPF) Urine WBC (0-5/HPF) Ur Squamous Epith Cells (0-5/HPF) Ur Transition Epith Cell (0-5/HPF) Urine Bacteria (None) Hyaline Casts (None) Ur Culture Indicated? Vol Urine Centrifuged U Opiates 300ng/mL cut (Negative) Ur Oxycodone Screen (Negative) Urine Methadone Screen (Negative) Ur Barbiturates Screen (Negative) U Tricyclic Antidepress (Negative) Ur Phencyclidine Scrn (Negative) Ur Amphetamines Screen (Negative) U Methamphetamines Scrn (Negative) Ur MDMA Scrn (Ecstasy) (Negative) U Benzodiazepines Scrn (Negative) Urine Cocaine Screen (Negative) U Marijuana (THC) Screen (Negative) Urine Specific [place] (Normal) Ethyl Alcohol < 10 ( - 10) mg/dL Ur Creatinine (Normal) Chlamy pneumoniae PCR (Not Detect) Adenovirus (PCR) (Not Detect) B.parapertussis DNA PCR (Not Detecte) Coronavirus OC43 (PCR) (Not Detect) Coronavirus HKU1 (PCR) (Not Detect) Coronavirus 229E (PCR) (Not Detect) SARS-CoV-2 (PCR) (Not Detecte) Coronavirus NL63 (PCR) (Not Detect) Human Metapneumovir PCR (Not Detect) Influenza Type A (PCR) (Not Detect) Influenza Type B (PCR) (Not Detect) M. pneumoniae (PCR) (Not Detect) Parainfluenza 1 (PCR) (Not Detect) Parainfluenza 2 (PCR) (Not Detect) Parainfluenza 3 (PCR) (Not Detect) Parainfluenza 4 (PCR) (Not Detect) RSV (PCR) (Not Detect) Entero/Rhino (PCR) (Not Detect) 10/21/23 10/21/23 10/21/23 Range/Units 16:15 16:25 16:50 WBC (4.5-11.0) X10^3/uL RBC (4.5-5.9) X10^6/uL Hgb (13.5-17.5) g/dL Hct (41-53) % MCV (80-100) fL MCH (26-34) PG MCHC (30-36) % RDW (11.6-14.8) % Plt Count (150-400) X10^3/uL Neut % (Auto) (50-75) % Lymph % (Auto) (25-40) % [place] % (Auto) (3-14) % Eos % (Auto) (2-4) % Baso % (Auto) (0-2) % Neut # (Auto) (7215-0618) /uL Lymph # (Auto) (7589-2876) /uL [place] # (Auto) (0-900) /uL Eos # (Auto) (0-450) /uL Baso # (Auto) (0-100) /uL PT 10.6 (9.4-12.5) SECONDS INR 0.9 (0.9-1.3) APTT 34 (25.1-36.5) SECONDS ABG pH (7.35-7.45) ABG pCO2 (35-45) mmHg ABG pO2 (80-100) mmHg ABG HCO3 (23-27) mmol/L ABG Total CO2 (23-27) mmol/L ABG O2 Saturation (95-100) % ABG Base Excess (-2-3) mmol/L Respiration Rate O2 Delivery Device FiO2 Sodium (137-145) mmol/L Potassium (3.4-5.1) mmol/L Chloride (98-107) mmol/L Carbon Dioxide (22-32) mmol/L BUN (9-20) mg/dL Creatinine (0.66-1.25) mg/dL Estimated GFR (>60) mL/min BUN/Creatinine Ratio (6-22) Glucose (80-110) mg/dL Lactate (0.7-2.1) mmol/L Calcium (8.4-10.2) mg/dL Magnesium (1.6-2.3) mg/dL Total Bilirubin (0.2-1.3) mg/dL AST (17-59) IU/L ALT (<50) IU/L Alkaline Phosphatase (38-126) U/L Total Creatine Kinase (55-170) U/L Troponin I (0.01-0.034) ng/mL NT-Pro-B Natriuret Pep 8510 H Total Protein (6.3-8.2) g/dL Albumin (3.5-5.0) g/dL Globulin (1.7-4.1) g/dL Albumin/Globulin Ratio (1.0-2.8) Lipase (23-300) U/L Procalcitonin 0.363 Urine Color Urine Appearance Urine pH (4.5-8.0) Ur Specific [place] (1.000-1.035) Urine Protein (Negative) Urine Glucose (UA) (Negative) g/dL Urine Ketones (NEGATIVE) Urine Occult Blood (Negative) Urine Nitrate (Negative) Urine Bilirubin (NEGATIVE) Urine Urobilinogen (0.2) E.U./dL Ur Leukocyte Esterase (NEGATIVE) Urine RBC (0-5/HPF) Urine WBC (0-5/HPF) Ur Squamous Epith Cells (0-5/HPF) Ur Transition Epith Cell (0-5/HPF) Urine Bacteria (None) Hyaline Casts (None) Ur Culture Indicated? Vol Urine Centrifuged U Opiates 300ng/mL cut (Negative) Ur Oxycodone Screen (Negative) Urine Methadone Screen (Negative) Ur Barbiturates Screen (Negative) U Tricyclic Antidepress (Negative) Ur Phencyclidine Scrn (Negative) Ur Amphetamines Screen (Negative) U Methamphetamines Scrn (Negative) Ur MDMA Scrn (Ecstasy) (Negative) U Benzodiazepines Scrn (Negative) Urine Cocaine Screen (Negative) U Marijuana (THC) Screen (Negative) Urine Specific [place] (Normal) Ethyl Alcohol ( - 10) mg/dL Ur Creatinine (Normal) Chlamy pneumoniae PCR Not detected (Not Detect) Adenovirus (PCR) Not detected (Not Detect) B.parapertussis DNA PCR Not detected (Not Detecte) Coronavirus OC43 (PCR) Not detected (Not Detect) Coronavirus HKU1 (PCR) Not detected (Not Detect) Coronavirus 229E (PCR) Not detected (Not Detect) SARS-CoV-2 (PCR) Not detected (Not Detecte) Coronavirus NL63 (PCR) Not detected (Not Detect) Human Metapneumovir PCR Not detected (Not Detect) Influenza Type A (PCR) Not detected (Not Detect) Influenza Type B (PCR) Not detected (Not Detect) M. pneumoniae (PCR) Not detected (Not Detect) Parainfluenza 1 (PCR) Not detected (Not Detect) Parainfluenza 2 (PCR) Not detected (Not Detect) Parainfluenza 3 (PCR) Not detected (Not Detect) Parainfluenza 4 (PCR) Not detected (Not Detect) RSV (PCR) Not detected (Not Detect) Entero/Rhino (PCR) Not detected (Not Detect) 10/21/23 10/21/23 Range/Units 16:51 18:00 WBC (4.5-11.0) X10^3/uL RBC (4.5-5.9) X10^6/uL Hgb (13.5-17.5) g/dL Hct (41-53) % MCV (80-100) fL MCH (26-34) PG MCHC (30-36) % RDW (11.6-14.8) % Plt Count (150-400) X10^3/uL Neut % (Auto) (50-75) % Lymph % (Auto) (25-40) % [place] % (Auto) (3-14) % Eos % (Auto) (2-4) % Baso % (Auto) (0-2) % Neut # (Auto) (9388-1882) /uL Lymph # (Auto) (5237-3872) /uL [place] # (Auto) (0-900) /uL Eos # (Auto) (0-450) /uL Baso # (Auto) (0-100) /uL PT (9.4-12.5) SECONDS INR (0.9-1.3) APTT (25.1-36.5) SECONDS ABG pH 7.31 L (7.35-7.45) ABG pCO2 73.5 H* (35-45) mmHg ABG pO2 55 L (80-100) mmHg ABG HCO3 38 H (23-27) mmol/L ABG Total CO2 39 H (23-27) mmol/L ABG O2 Saturation 84 L* (95-100) % ABG Base Excess 7.8 H (-2-3) mmol/L Respiration Rate O2 Delivery Device Vent FiO2 100 Sodium (137-145) mmol/L Potassium (3.4-5.1) mmol/L Chloride (98-107) mmol/L Carbon Dioxide (22-32) mmol/L BUN (9-20) mg/dL Creatinine (0.66-1.25) mg/dL Estimated GFR (>60) mL/min BUN/Creatinine Ratio (6-22) Glucose (80-110) mg/dL Lactate (0.7-2.1) mmol/L Calcium (8.4-10.2) mg/dL Magnesium (1.6-2.3) mg/dL Total Bilirubin (0.2-1.3) mg/dL AST (17-59) IU/L ALT (<50) IU/L Alkaline Phosphatase (38-126) U/L Total Creatine Kinase 700 H (55-170) U/L Troponin I 0.065 H (0.01-0.034) ng/mL NT-Pro-B Natriuret Pep Total Protein (6.3-8.2) g/dL Albumin (3.5-5.0) g/dL Globulin (1.7-4.1) g/dL Albumin/Globulin Ratio (1.0-2.8) Lipase (23-300) U/L Procalcitonin Urine Color Urine Appearance Urine pH (4.5-8.0) Ur Specific [place] (1.000-1.035) Urine Protein (Negative) Urine Glucose (UA) (Negative) g/dL Urine Ketones (NEGATIVE) Urine Occult Blood (Negative) Urine Nitrate (Negative) Urine Bilirubin (NEGATIVE) Urine Urobilinogen (0.2) E.U./dL Ur Leukocyte Esterase (NEGATIVE) Urine RBC (0-5/HPF) Urine WBC (0-5/HPF) Ur Squamous Epith Cells (0-5/HPF) Ur Transition Epith Cell (0-5/HPF) Urine Bacteria (None) Hyaline Casts (None) Ur Culture Indicated? Vol Urine Centrifuged U Opiates 300ng/mL cut (Negative) Ur Oxycodone Screen (Negative) Urine Methadone Screen (Negative) Ur Barbiturates Screen (Negative) U Tricyclic Antidepress (Negative) Ur Phencyclidine Scrn (Negative) Ur Amphetamines Screen (Negative) U Methamphetamines Scrn (Negative) Ur MDMA Scrn (Ecstasy) (Negative) U Benzodiazepines Scrn (Negative) Urine Cocaine Screen (Negative) U Marijuana (THC) Screen (Negative) Urine Specific [place] (Normal) Ethyl Alcohol ( - 10) mg/dL Ur Creatinine (Normal) Chlamy pneumoniae PCR (Not Detect) Adenovirus (PCR) (Not Detect) B.parapertussis DNA PCR (Not Detecte) Coronavirus OC43 (PCR) (Not Detect) Coronavirus HKU1 (PCR) (Not Detect) Coronavirus 229E (PCR) (Not Detect) SARS-CoV-2 (PCR) (Not Detecte) Coronavirus NL63 (PCR) (Not Detect) Human Metapneumovir PCR (Not Detect) Influenza Type A (PCR) (Not Detect) Influenza Type B (PCR) (Not Detect) M. pneumoniae (PCR) (Not Detect) Parainfluenza 1 (PCR) (Not Detect) Parainfluenza 2 (PCR) (Not Detect) Parainfluenza 3 (PCR) (Not Detect) Parainfluenza 4 (PCR) (Not Detect) RSV (PCR) (Not Detect) Entero/Rhino (PCR) (Not Detect) Point of Care Testing Glucose POC 134 Point of care testing: Point of Care Testing Glucose POC 134 Imaging Data Chest x-ray: Radiologist's Impression: ROCEDURE: XR CHEST 1V INDICATIONS: s/p intubation TECHNIQUE: One view of the chest was acquired. COMPARISON: [facility], , XR CHEST 1V, 09/17/2023, 9:28. [facility], , XR CHEST 1V, 06/13/2023, 6:30. FINDINGS: Surgical changes and devices: Endotracheal tube is seen with tip approximately 4.8 cm above the bella. Enteric tube terminates in the region of the gastroesophageal junction. Cervical spinal fusion hardware is noted. Lungs and pleura: Moderate left pleural effusion and left basilar atelectasis or consolidation. No pneumothorax. Small right pleural effusion. Mediastinum: Cardiac silhouette is enlarged. Bones and chest wall: No suspicious bony lesions. Overlying soft tissues appear unremarkable. IMPRESSION: 1. Endotracheal tube is in satisfactory position. 2. Enteric tube terminates at the gastroesophageal junction. Recommend advancing. 3. Moderate left pleural effusion and small right pleural effusion, which have increased when compared to the radiographs from 09/17/2023. Left basilar atelectasis or consolidation. 4. Cardiomegaly. ECG Data Attestation: I personally reviewed and interpreted this ECG as follows: Interpretation: Sinus rhythm Ventricular rate [address] T wave changes MDM Narrative Medical decision making narrative: Patient is in hypercarbic respiratory failure with acidosis of 7.1 and a pCO2 of greater than 120. This did improve with ventilatory support. He did start to respond after a period of time here in the ER. He was started on fentanyl and Versed. Initially was hypotensive but this responded well to fluids. His creatinine is elevated. BNP is elevated. Troponin is slightly elevated as well. Nonischemic EKG. Ordered Lasix however given his soft blood pressures will hold on that for now. Repeat troponin ordered. Care turned over to Dr. Will to follow-up and disposition. <Marcela Will MD - Last Filed: 10/22/23 07:06> Lab Data Labs: Lab Results 10/21/23 10/21/23 10/21/23 Range/Units 14:15 14:15 14:31 WBC (4.5-11.0) X10^3/uL RBC (4.5-5.9) X10^6/uL Hgb (13.5-17.5) g/dL Hct (41-53) % MCV (80-100) fL MCH (26-34) PG MCHC (30-36) % RDW (11.6-14.8) % Plt Count (150-400) X10^3/uL Neut % (Auto) (50-75) % Lymph % (Auto) (25-40) % [place] % (Auto) (3-14) % Eos % (Auto) (2-4) % Baso % (Auto) (0-2) % Neut # (Auto) (3452-5827) /uL Lymph # (Auto) (7239-6799) /uL [place] # (Auto) (0-900) /uL Eos # (Auto) (0-450) /uL Baso # (Auto) (0-100) /uL PT (9.4-12.5) SECONDS INR (0.9-1.3) APTT (25.1-36.5) SECONDS ABG pH 7.11 L* (7.35-7.45) ABG pCO2 121.9 H* (35-45) mmHg ABG pO2 83 (80-100) mmHg ABG HCO3 23 (23-27) mmol/L ABG Total CO2 23 (23-27) mmol/L ABG O2 Saturation 90 L (95-100) % ABG Base Excess -4.0 L (-2-3) mmol/L Respiration Rate 39 O2 Delivery Device Vent FiO2 100 Sodium (137-145) mmol/L Potassium (3.4-5.1) mmol/L Chloride (98-107) mmol/L Carbon Dioxide (22-32) mmol/L BUN (9-20) mg/dL Creatinine (0.66-1.25) mg/dL Estimated GFR (>60) mL/min BUN/Creatinine Ratio (6-22) Glucose (80-110) mg/dL Lactate (0.7-2.1) mmol/L Calcium (8.4-10.2) mg/dL Magnesium (1.6-2.3) mg/dL Total Bilirubin (0.2-1.3) mg/dL AST (17-59) IU/L ALT (<50) IU/L Alkaline Phosphatase (38-126) U/L Total Creatine Kinase (55-170) U/L Troponin I (0.01-0.034) ng/mL NT-Pro-B Natriuret Pep Total Protein (6.3-8.2) g/dL Albumin (3.5-5.0) g/dL Globulin (1.7-4.1) g/dL Albumin/Globulin Ratio (1.0-2.8) Lipase (23-300) U/L Procalcitonin Urine Color Yellow Urine Appearance Clear Urine pH 5.0 Normal (4.5-8.0) Ur Specific [place] >=1.030 H (1.000-1.035) Urine Protein Trace H (Negative) Urine Glucose (UA) Negative (Negative) g/dL Urine Ketones Negative (NEGATIVE) Urine Occult Blood Negative (Negative) Urine Nitrate Negative (Negative) Urine Bilirubin Negative (NEGATIVE) Urine Urobilinogen 1.0 (0.2) E.U./dL Ur Leukocyte Esterase Negative (NEGATIVE) Urine RBC 0-1/hpf (0-5/HPF) Urine WBC None seen (0-5/HPF) Ur Squamous Epith Cells 0-1 /hpf (0-5/HPF) Ur Transition Epith Cell 0-1/hpf (0-5/HPF) Urine Bacteria None seen (None) Hyaline Casts 1-5/lpf (None) Ur Culture Indicated? Cult not indicated Vol Urine Centrifuged 10ml (spun) U Opiates 300ng/mL cut Positive H (Negative) Ur Oxycodone Screen Negative (Negative) Urine Methadone Screen Negative (Negative) Ur Barbiturates Screen Negative (Negative) U Tricyclic Antidepress Negative (Negative) Ur Phencyclidine Scrn Negative (Negative) Ur Amphetamines Screen Negative (Negative) U Methamphetamines Scrn Negative (Negative) Ur MDMA Scrn (Ecstasy) Negative (Negative) U Benzodiazepines Scrn Negative (Negative) Urine Cocaine Screen Negative (Negative) U Marijuana (THC) Screen Negative (Negative) Urine Specific [place] Normal (Normal) Ethyl Alcohol ( - 10) mg/dL Ur Creatinine Normal (Normal) Chlamy pneumoniae PCR (Not Detect) Adenovirus (PCR) (Not Detect) B.parapertussis DNA PCR (Not Detecte) Coronavirus OC43 (PCR) (Not Detect) Coronavirus HKU1 (PCR) (Not Detect) Coronavirus 229E (PCR) (Not Detect) SARS-CoV-2 (PCR) (Not Detecte) Coronavirus NL63 (PCR) (Not Detect) Human Metapneumovir PCR (Not Detect) Influenza Type A (PCR) (Not Detect) Influenza Type B (PCR) (Not Detect) M. pneumoniae (PCR) (Not Detect) Parainfluenza 1 (PCR) (Not Detect) Parainfluenza 2 (PCR) (Not Detect) Parainfluenza 3 (PCR) (Not Detect) Parainfluenza 4 (PCR) (Not Detect) RSV (PCR) (Not Detect) Entero/Rhino (PCR) (Not Detect) 10/21/23 10/21/23 10/21/23 Range/Units 14:36 15:23 16:05 WBC 15.6 H (4.5-11.0) X10^3/uL RBC 4.86 (4.5-5.9) X10^6/uL Hgb 13.7 (13.5-17.5) g/dL Hct 44.8 (41-53) % MCV 92.0 (80-100) fL MCH 28.1 (26-34) PG MCHC 30.5 (30-36) % RDW 15.9 H (11.6-14.8) % Plt Count 332 (150-400) X10^3/uL Neut % (Auto) 78.7 H (50-75) % Lymph % (Auto) 12.7 L (25-40) % [place] % (Auto) 8.0 (3-14) % Eos % (Auto) 0.0 L (2-4) % Baso % (Auto) 0.6 (0-2) % Neut # (Auto) 28567 H (5921-4214) /uL Lymph # (Auto) 2000 (5292-5515) /uL [place] # (Auto) 1200 H (0-900) /uL Eos # (Auto) 0 (0-450) /uL Baso # (Auto) 100 (0-100) /uL PT (9.4-12.5) SECONDS INR (0.9-1.3) APTT (25.1-36.5) SECONDS ABG pH (7.35-7.45) ABG pCO2 (35-45) mmHg ABG pO2 (80-100) mmHg ABG HCO3 (23-27) mmol/L ABG Total CO2 (23-27) mmol/L ABG O2 Saturation (95-100) % ABG Base Excess (-2-3) mmol/L Respiration Rate O2 Delivery Device FiO2 Sodium 141 (137-145) mmol/L Potassium 4.4 (3.4-5.1) mmol/L Chloride 95 L (98-107) mmol/L Carbon Dioxide > 40 H* (22-32) mmol/L BUN 59 H (9-20) mg/dL Creatinine 2.30 H (0.66-1.25) mg/dL Estimated GFR 30 L (>60) mL/min BUN/Creatinine Ratio 25.7 H (6-22) Glucose 117 H (80-110) mg/dL Lactate 1.6 (0.7-2.1) mmol/L Calcium 8.6 (8.4-10.2) mg/dL Magnesium 2.0 (1.6-2.3) mg/dL Total Bilirubin 0.5 (0.2-1.3) mg/dL AST 40 (17-59) IU/L ALT 25 (<50) IU/L Alkaline Phosphatase 76 (38-126) U/L Total Creatine Kinase 726 H (55-170) U/L Troponin I 0.058 H (0.01-0.034) ng/mL NT-Pro-B Natriuret Pep TNP Total Protein 6.8 (6.3-8.2) g/dL Albumin 3.8 (3.5-5.0) g/dL Globulin 3.0 (1.7-4.1) g/dL Albumin/Globulin Ratio 1.3 (1.0-2.8) Lipase 106 (23-300) U/L Procalcitonin TNP Urine Color Urine Appearance Urine pH (4.5-8.0) Ur Specific [place] (1.000-1.035) Urine Protein (Negative) Urine Glucose (UA) (Negative) g/dL Urine Ketones (NEGATIVE) Urine Occult Blood (Negative) Urine Nitrate (Negative) Urine Bilirubin (NEGATIVE) Urine Urobilinogen (0.2) E.U./dL Ur Leukocyte Esterase (NEGATIVE) Urine RBC (0-5/HPF) Urine WBC (0-5/HPF) Ur Squamous Epith Cells (0-5/HPF) Ur Transition Epith Cell (0-5/HPF) Urine Bacteria (None) Hyaline Casts (None) Ur Culture Indicated? Vol Urine Centrifuged U Opiates 300ng/mL cut (Negative) Ur Oxycodone Screen (Negative) Urine Methadone Screen (Negative) Ur Barbiturates Screen (Negative) U Tricyclic Antidepress (Negative) Ur Phencyclidine Scrn (Negative) Ur Amphetamines Screen (Negative) U Methamphetamines Scrn (Negative) Ur MDMA Scrn (Ecstasy) (Negative) U Benzodiazepines Scrn (Negative) Urine Cocaine Screen (Negative) U Marijuana (THC) Screen (Negative) Urine Specific [place] (Normal) Ethyl Alcohol < 10 ( - 10) mg/dL Ur Creatinine (Normal) Chlamy pneumoniae PCR (Not Detect) Adenovirus (PCR) (Not Detect) B.parapertussis DNA PCR (Not Detecte) Coronavirus OC43 (PCR) (Not Detect) Coronavirus HKU1 (PCR) (Not Detect) Coronavirus 229E (PCR) (Not Detect) SARS-CoV-2 (PCR) (Not Detecte) Coronavirus NL63 (PCR) (Not Detect) Human Metapneumovir PCR (Not Detect) Influenza Type A (PCR) (Not Detect) Influenza Type B (PCR) (Not Detect) M. pneumoniae (PCR) (Not Detect) Parainfluenza 1 (PCR) (Not Detect) Parainfluenza 2 (PCR) (Not Detect) Parainfluenza 3 (PCR) (Not Detect) Parainfluenza 4 (PCR) (Not Detect) RSV (PCR) (Not Detect) Entero/Rhino (PCR) (Not Detect) 10/21/23 10/21/23 10/21/23 Range/Units 16:15 16:25 16:50 WBC (4.5-11.0) X10^3/uL RBC (4.5-5.9) X10^6/uL Hgb (13.5-17.5) g/dL Hct (41-53) % MCV (80-100) fL MCH (26-34) PG MCHC (30-36) % RDW (11.6-14.8) % Plt Count (150-400) X10^3/uL Neut % (Auto) (50-75) % Lymph % (Auto) (25-40) % [place] % (Auto) (3-14) % Eos % (Auto) (2-4) % Baso % (Auto) (0-2) % Neut # (Auto) (7191-5908) /uL Lymph # (Auto) (7115-5468) /uL [place] # (Auto) (0-900) /uL Eos # (Auto) (0-450) /uL Baso # (Auto) (0-100) /uL PT 10.6 (9.4-12.5) SECONDS INR 0.9 (0.9-1.3) APTT 34 (25.1-36.5) SECONDS ABG pH (7.35-7.45) ABG pCO2 (35-45) mmHg ABG pO2 (80-100) mmHg ABG HCO3 (23-27) mmol/L ABG Total CO2 (23-27) mmol/L ABG O2 Saturation (95-100) % ABG Base Excess (-2-3) mmol/L Respiration Rate O2 Delivery Device FiO2 Sodium (137-145) mmol/L Potassium (3.4-5.1) mmol/L Chloride (98-107) mmol/L Carbon Dioxide (22-32) mmol/L BUN (9-20) mg/dL Creatinine (0.66-1.25) mg/dL Estimated GFR (>60) mL/min BUN/Creatinine Ratio (6-22) Glucose (80-110) mg/dL Lactate (0.7-2.1) mmol/L Calcium (8.4-10.2) mg/dL Magnesium (1.6-2.3) mg/dL Total Bilirubin (0.2-1.3) mg/dL AST (17-59) IU/L ALT (<50) IU/L Alkaline Phosphatase (38-126) U/L Total Creatine Kinase (55-170) U/L Troponin I (0.01-0.034) ng/mL NT-[facility] Pep 8510 H Total Protein (6.3-8.2) g/dL Albumin (3.5-5.0) g/dL Globulin (1.7-4.1) g/dL Albumin/Globulin Ratio (1.0-2.8) Lipase (23-300) U/L Procalcitonin 0.363 Urine Color Urine Appearance Urine pH (4.5-8.0) Ur Specific [place] (1.000-1.035) Urine Protein (Negative) Urine Glucose (UA) (Negative) g/dL Urine Ketones (NEGATIVE) Urine Occult Blood (Negative) Urine Nitrate (Negative) Urine Bilirubin (NEGATIVE) Urine Urobilinogen (0.2) E.U./dL Ur Leukocyte Esterase (NEGATIVE) Urine RBC (0-5/HPF) Urine WBC (0-5/HPF) Ur Squamous Epith Cells (0-5/HPF) Ur Transition Epith Cell (0-5/HPF) Urine Bacteria (None) Hyaline Casts (None) Ur Culture Indicated? Vol Urine Centrifuged U Opiates 300ng/mL cut (Negative) Ur Oxycodone Screen (Negative) Urine Methadone Screen (Negative) Ur Barbiturates Screen (Negative) U Tricyclic Antidepress (Negative) Ur Phencyclidine Scrn (Negative) Ur Amphetamines Screen (Negative) U Methamphetamines Scrn (Negative) Ur MDMA Scrn (Ecstasy) (Negative) U Benzodiazepines Scrn (Negative) Urine Cocaine Screen (Negative) U Marijuana (THC) Screen (Negative) Urine Specific [place] (Normal) Ethyl Alcohol ( - 10) mg/dL Ur Creatinine (Normal) Chlamy pneumoniae PCR Not detected (Not Detect) Adenovirus (PCR) Not detected (Not Detect) B.parapertussis DNA PCR Not detected (Not Detecte) Coronavirus OC43 (PCR) Not detected (Not Detect) Coronavirus HKU1 (PCR) Not detected (Not Detect) Coronavirus 229E (PCR) Not detected (Not Detect) SARS-CoV-2 (PCR) Not detected (Not Detecte) Coronavirus NL63 (PCR) Not detected (Not Detect) Human Metapneumovir PCR Not detected (Not Detect) Influenza Type A (PCR) Not detected (Not Detect) Influenza Type B (PCR) Not detected (Not Detect) M. pneumoniae (PCR) Not detected (Not Detect) Parainfluenza 1 (PCR) Not detected (Not Detect) Parainfluenza 2 (PCR) Not detected (Not Detect) Parainfluenza 3 (PCR) Not detected (Not Detect) Parainfluenza 4 (PCR) Not detected (Not Detect) RSV (PCR) Not detected (Not Detect) Entero/Rhino (PCR) Not detected (Not Detect) 10/21/23 10/21/23 Range/Units 16:51 18:00 WBC (4.5-11.0) X10^3/uL RBC (4.5-5.9) X10^6/uL Hgb (13.5-17.5) g/dL Hct (41-53) % MCV (80-100) fL MCH (26-34) PG MCHC (30-36) % RDW (11.6-14.8) % Plt Count (150-400) X10^3/uL Neut % (Auto) (50-75) % Lymph % (Auto) (25-40) % [place] % (Auto) (3-14) % Eos % (Auto) (2-4) % Baso % (Auto) (0-2) % Neut # (Auto) (2662-2962) /uL Lymph # (Auto) (9003-7302) /uL [place] # (Auto) (0-900) /uL Eos # (Auto) (0-450) /uL Baso # (Auto) (0-100) /uL PT (9.4-12.5) SECONDS INR (0.9-1.3) APTT (25.1-36.5) SECONDS ABG pH 7.31 L (7.35-7.45) ABG pCO2 73.5 H* (35-45) mmHg ABG pO2 55 L (80-100) mmHg ABG HCO3 38 H (23-27) mmol/L ABG Total CO2 39 H (23-27) mmol/L ABG O2 Saturation 84 L* (95-100) % ABG Base Excess 7.8 H (-2-3) mmol/L Respiration Rate O2 Delivery Device Vent FiO2 100 Sodium (137-145) mmol/L Potassium (3.4-5.1) mmol/L Chloride (98-107) mmol/L Carbon Dioxide (22-32) mmol/L BUN (9-20) mg/dL Creatinine (0.66-1.25) mg/dL Estimated GFR (>60) mL/min BUN/Creatinine Ratio (6-22) Glucose (80-110) mg/dL Lactate (0.7-2.1) mmol/L Calcium (8.4-10.2) mg/dL Magnesium (1.6-2.3) mg/dL Total Bilirubin (0.2-1.3) mg/dL AST (17-59) IU/L ALT (<50) IU/L Alkaline Phosphatase (38-126) U/L Total Creatine Kinase 700 H (55-170) U/L Troponin I 0.065 H (0.01-0.034) ng/mL NT-Pro-B Natriuret Pep Total Protein (6.3-8.2) g/dL Albumin (3.5-5.0) g/dL Globulin (1.7-4.1) g/dL Albumin/Globulin Ratio (1.0-2.8) Lipase (23-300) U/L Procalcitonin Urine Color Urine Appearance Urine pH (4.5-8.0) Ur Specific [place] (1.000-1.035) Urine Protein (Negative) Urine Glucose (UA) (Negative) g/dL Urine Ketones (NEGATIVE) Urine Occult Blood (Negative) Urine Nitrate (Negative) Urine Bilirubin (NEGATIVE) Urine Urobilinogen (0.2) E.U./dL Ur Leukocyte Esterase (NEGATIVE) Urine RBC (0-5/HPF) Urine WBC (0-5/HPF) Ur Squamous Epith Cells (0-5/HPF) Ur Transition Epith Cell (0-5/HPF) Urine Bacteria (None) Hyaline Casts (None) Ur Culture Indicated? Vol Urine Centrifuged U Opiates 300ng/mL cut (Negative) Ur Oxycodone Screen (Negative) Urine Methadone Screen (Negative) Ur Barbiturates Screen (Negative) U Tricyclic Antidepress (Negative) Ur Phencyclidine Scrn (Negative) Ur Amphetamines Screen (Negative) U Methamphetamines Scrn (Negative) Ur MDMA Scrn (Ecstasy) (Negative) U Benzodiazepines Scrn (Negative) Urine Cocaine Screen (Negative) U Marijuana (THC) Screen (Negative) Urine Specific [place] (Normal) Ethyl Alcohol ( - 10) mg/dL Ur Creatinine (Normal) Chlamy pneumoniae PCR (Not Detect) Adenovirus (PCR) (Not Detect) B.parapertussis DNA PCR (Not Detecte) Coronavirus OC43 (PCR) (Not Detect) Coronavirus HKU1 (PCR) (Not Detect) Coronavirus 229E (PCR) (Not Detect) SARS-CoV-2 (PCR) (Not Detecte) Coronavirus NL63 (PCR) (Not Detect) Human Metapneumovir PCR (Not Detect) Influenza Type A (PCR) (Not Detect) Influenza Type B (PCR) (Not Detect) M. pneumoniae (PCR) (Not Detect) Parainfluenza 1 (PCR) (Not Detect) Parainfluenza 2 (PCR) (Not Detect) Parainfluenza 3 (PCR) (Not Detect) Parainfluenza 4 (PCR) (Not Detect) RSV (PCR) (Not Detect) Entero/Rhino (PCR) (Not Detect) Point of Care Testing Glucose POC 134 Point of care testing: Point of Care Testing Glucose POC 134 Imaging Data Chest x-ray: Radiologist's Impression: ROCEDURE: XR CHEST 1V INDICATIONS: s/p intubation TECHNIQUE: One view of the chest was acquired. COMPARISON: [facility], CR, XR CHEST 1V, 09/17/2023, 9:28. [facility], CR, XR CHEST 1V, 06/13/2023, 6:30. FINDINGS: Surgical changes and devices: Endotracheal tube is seen with tip approximately 4.8 cm above the bella. Enteric tube terminates in the region of the gastroesophageal junction. Cervical spinal fusion hardware is noted. Lungs and pleura: Moderate left pleural effusion and left basilar atelectasis or consolidation. No pneumothorax. Small right pleural effusion. Mediastinum: Cardiac silhouette is enlarged. Bones and chest wall: No suspicious bony lesions. Overlying soft tissues appear unremarkable. IMPRESSION: 1. Endotracheal tube is in satisfactory position. 2. Enteric tube terminates at the gastroesophageal junction. Recommend advancing. 3. Moderate left pleural effusion and small right pleural effusion, which have increased when compared to the radiographs from 09/17/2023. Left basilar atelectasis or consolidation. 4. Cardiomegaly. PROCEDURE: XR CHEST 1V INDICATIONS: verify central line placement TECHNIQUE: One view of the chest was acquired. COMPARISON: [facility], , XR CHEST 1V, 10/21/2023, 15:58. [facility], , XR CHEST 1V, 10/21/2023, 14:13. FINDINGS: Surgical changes and devices: Right internal jugular catheter placement with tip projecting over the lower superior vena cava near the cavoatrial junction. Endotracheal and enteric tubes are seen in stable positions. Cervical spinal fusion hardware again noted. Lungs and pleura: Patient is rotated towards the left. Left basilar opacities and pleural effusion do not appear significantly changed. Probable small right pleural effusion. No pneumothorax is seen. Mediastinum: Enlarged cardiac silhouette. Bones and chest wall: No suspicious bony lesions. Overlying soft tissues appear unremarkable. IMPRESSION: Right internal jugular catheter is seen in satisfactory position. Stable endotracheal and enteric tubes. Approved by: Juvenal Olivia M.D. on 10/21/2023 at 19:53 MDM Narrative Medical decision making narrative: Patient is in hypercarbic respiratory failure with acidosis of 7.1 and a pCO2 of greater than 120. This did improve with ventilatory support. He did start to respond after a period of time here in the ER. He was started on fentanyl and Versed. Initially was hypotensive but this responded well to fluids. His creatinine is elevated. BNP is elevated. Troponin is slightly elevated as well. Nonischemic EKG. Ordered Lasix however given his soft blood pressures will hold on that for now. Repeat troponin ordered. Care turned over to Dr. Will to follow-up and disposition. Dr. Will -care of patient is signed out to me, independent review of patient and chart performed. Due to drop in blood pressure as well as anticipated need for additional IV access a central line was placed in the right IJ. Chest x-ray confirmed good positioning. Patient had minimal diuresis with IV Lasix, 2 mg of Bumex ordered. Patient has subsequently had slight increase in urine output after Bumex administration. Due to patient's numerous comorbidities as well as new renal injury patient to be transferred for higher level of care with Cardiology, pulmonology, Nephrology Services. Discussed case with [facility] Inspector at [facility], who accepted patient for transfer. Critical Care Time <Pedro Lucero, - Last Filed: 10/22/23 07:08> Critical Care Time Critical Care Time: Yes Total Critical Care Time: 45 Attestation: The high probability of a clinically significant, sudden or life threatening deterioration of the [respiratory, cardiovascular] system(s) required my full and direct attention, intervention and personal management. The aggregate critical care time was [45] minutes. This time is in addition to time spent performing reported procedures but includes the following: x] Data Review and interpretation [x] Patient assessment and monitoring of vital signs [x] Documentation [x] Medication orders and management Discharge Plan Departure Patient Disposition: [facility] Clinical Impression: Acute respiratory failure with hypoxia and hypercapnia, Acute kidney failure, Pleural effusion Prescriptions: No Action cyanocobalamin (vitamin B-12) 1,000 MCG tablet extended release 1,000 mcg PO DAILY Qty: 0 levothyroxine 150 mcg tablet 150 mcg PO DAILY Qty: 180 3RF Rx Instructions: take 1 tablet by mouth in the morning before eating/drinking potassium chloride [Klor-Con M20] 20 mEq tablet,ER particles/crystals 20 meq PO DAILY Qty: 180 3RF tamsulosin [Flomax] 0.4 mg capsule 0.4 mg PO DAILY Qty: 180 3RF fluticasone furoate-vilanterol [Breo Ellipta] 200-25 mcg/dose blister with device 1 inh inhalation DAILY Qty: 60 11RF metolazone 2.5 mg tablet 2.5 mg PO DAILY Qty: 7 0RF diphenhydramine HCl [Allergy (diphenhydramine)] 25 mg capsule 25 mg PO Q4H PRN (Reason: Itching) Rx Instructions: when needed (DME) Disabled Parking See Rx Instructions .ROUTE .MEDSUPPLY Qty: 1 0RF Rx Instructions: Patient qualifies for disabled parking as per the attached form. meloxicam 15 mg tablet 15 mg PO DAILY Qty: 90 3RF omeprazole 40 mg capsule,delayed release(DR/EC) 40 mg PO DAILY acetaminophen 325 mg Tablet 650 mg PO TID PRN (Reason: Pain, Mild) Qty: 60 0RF albuterol sulfate 2.5 mg /3 mL (0.083 %) solution for nebulization 2.5 mg inhalation Q12H PRN (Reason: respiratory distress) cyclobenzaprine 10 mg tablet 10 mg PO BEDTIME PRN (Reason: Spasms) furosemide 40 mg Tablet 40 mg PO DAILY Qty: 90 3RF prednisone 20 mg tablet 40 mg PO DAILY Qty: 30 0RF Rx Instructions: 2 tabs daily for 1 week, then 1 tab daily for 1 week, then 1/2 tab daily for 1 week, then 1/2 tab every other day for 10 days, then stop tiotropium bromide [Spiriva with HandiHaler] 18 mcg capsule, w/inhalation device 1 cap inhalation DAILY Qty: 30 11RF Rx Instructions: puncture 1 cap using device; one dose = 2 inhalations Referrals: Blas Vargas MD [Primary Care Provider] -
--- NOTE | 2023-10-21 14:09 | DI.CT.S_ITS ---
PROCEDURE: CT HEAD/BRAIN WO CON INDICATIONS: AMS TECHNIQUE: Noncontrast 4.5 mm thick angled axial sections acquired from the foramen magnum to the vertex, with coronal and sagittal reformats. For radiation dose reduction, the following was used: automated exposure control, adjustment of mA and/or kV according to patient size. COMPARISON: [facility], CT, CT HEAD/BRAIN WO CON, 03/27/2021, 9:59. [facility], CT, CT HEAD/BRAIN WO CON, 11/29/2020, 16:49. FINDINGS: Image quality: Diagnostic. CSF spaces: Basal cisterns are patent. No extra-axial fluid collections. The ventricles are symmetric in size and shape. Brain: No intracranial bleeds or masses. There is cerebral volume loss for age, with resultant ventricular and sulcal prominence. There are periventricular and deep white matter chronic small vessel ischemic changes. There is intracranial internal carotid artery atherosclerosis. Skull and face: Calvarium and visualized facial bones appear intact, without suspicious lesions. Enteric tube is seen coiling within the oropharynx. Endotracheal tube is partially imaged. Sinuses: Visualized sinuses and mastoids are clear. IMPRESSION: 1. No acute intracranial pathology. 2. Enteric tube is seen coiling within the oropharynx. Recommend repositioning. Approved by: Juvenal Olivia M.D. on 10/21/2023 at 15:32
[2023-10-21] MEDS: SODIUM CHLORIDE 0.9% 1,000 ML 1000 ML IV (14:10)
--- NOTE | 2023-10-21 14:24 | EKG_ITS ---
[place] [id number] [place] [id number] Test Date: 2023-10-21 Pat Name: Tanner Hauser Department: [facility] Room: Gender: Male Hot Baller: [place] : 1950 Requested By: Order Number: [id number] Reading MD: Blas Vargas MD Measurements Intervals [place] Rate: 91 P: 65 MO: 178 QRS: 7 QRSD: 124 T: 72 QT: 400 QTc: 492 Interpretive Statements Normal sinus rhythm Nonspecific intraventricular conduction delay T wave abnormality, consider anterior ischemia Electronically Signed On 10-21-2023 15:34:39 PDT by Blas Vargas MD
[2023-10-21 14:28] LABS: Appearance Urine UA CLEAR; Bilirubin Urine UA NEGATIVE (NEGATIVE); Color Urine UA YELLOW; Glucose Urine UA NEGATIVE (Negative); Ketones Urine UA NEGATIVE (NEGATIVE); Leukocyte Esterase Urine UA NEGATIVE (NEGATIVE); Nitrite Urine UA NEGATIVE (Negative); Occult Blood Urine UA NEGATIVE (Negative); Protein Urine UA TRACE (Negative); Specific Gravity Urine UA >=1.030 (1.000-1.035)
[2023-10-21 14:34] LABS: Ur Creatinine Normal (Normal); Ur Specific Gravity Normal (Normal); Urine Amphetamines Negative (Negative); Urine Cocaine Negative (Negative); Urine MDMA Negative (Negative); Urine Methamphetamines Negative (Negative); Urine Phencyclidine Negative (Negative); Urine Tetrahydrocannabinol Negative (Negative); Urine pH Normal (Normal)
[2023-10-21 14:35] LABS: Urine Barbiturates Negative (Negative); Urine Benzodiazepines Negative (Negative)
[2023-10-21 14:36] LABS: UR Morphine/Opiate cutoff 300 Positive (Negative); Urine Methadone Negative (Negative); Urine Oxycodone Negative (Negative); Urine Tricyclic Antidepressant Negative (Negative)
[2023-10-21 14:44] LABS: Bacteria Urine None Seen; RBC Urine 0-1/HPF (0-5/HPF); Squamous Epithelial Cell Urine 0-1 /HPF (0-5/HPF); Transitional Epi Cells Urine 0-1/HPF (0-5/HPF); Urine Volume 10mL (spun); WBC Urine None Seen (0-5/HPF)
[2023-10-21 14:45] LABS: Culture Indicated Urine Cult Not Indicated; Hyaline Casts Urine 1-5/LPF
[2023-10-21 14:47] LABS: pH ABG 7.11 (7.35-7.45)
[2023-10-21 14:48] LABS: PCO2 ABG 121.9 mmHg (35-45); PO2 ABG 83 mmHg (80-100)
[2023-10-21 14:49] LABS: Delivery System VENT; Fractionated Inspired Oxygen 100; HCO3 ABG 23 mmol/L (23-27); Oxygen Saturation ABG 90 % (95-100); Respiratory Rate 39; TCO2 ABG 23 mmol/L (23-27)
[2023-10-21 14:50] LABS: Allen Test for ABG Passed? Yes, Passed
[2023-10-21 14:57] LABS: Add Manual Diff / Slide Review NO; Basophils Absolute Auto 100 /uL (0-100); Basophils Percent Auto 0.6 % (0-2); Eosinophils Absolute Auto 0 /uL (0-450); Hematocrit 44.8 % (41-53); Hemoglobin 13.7 g/dL (13.5-17.5); Lymphocytes Absolute Auto 2000 /uL (1100-4500); Lymphocytes Percent Auto 12.7 % (25-40); Mean Corpuscular HGB Conc 30.5 % (30-36); Mean Corpuscular Hemoglobin 28.1 PG (26-34); Monocytes Absolute Auto 1200 /uL (0-900); Neutrophils Absolute Auto 12300 /uL (1500-7000); Neutrophils Percent Auto 78.7 % (50-75); Platelet Count 332 X10^3/uL (150-400); Red Blood Cell Count 4.86 X10^6/uL (4.5-5.9); Red Cell Distribution Width 15.9 % (11.6-14.8); White Blood Cell Count 15.6 X10^3/uL (4.5-11.0)
[2023-10-21] MEDS: methylPREDNISolone 125 MG/2 ML VIAL IV (15:07)
[2023-10-21] MEDS: cefTRIAXone 1,000 MG in SODIUM CHLORIDE 0.9% 100 ML 200 MG IV (15:16)
[2023-10-21] MEDS: ALBUTEROL/IPRATROPIUM 3 ML AMPUL INH (15:23)
--- NOTE | 2023-10-21 15:28 | PC.NURSE ---
OG advanced further per provider order. Pt continues to have minimal output from OG.
[2023-10-21 15:46] LABS: Lactate (Lactic Acid) 1.6 mmol/L (0.7-2.1)
--- NOTE | 2023-10-21 15:58 | DI.RAD.S_ITS ---
PROCEDURE: XR CHEST 1V INDICATIONS: Replacement of OG tube TECHNIQUE: One view of the chest was acquired. COMPARISON: [facility], CR, XR CHEST 1V, 06/13/2023, 6:30. [facility], CR, XR CHEST 1V, 09/17/2023, 9:28. [facility], CR, XR CHEST 1V, 10/21/2023, 14:13. FINDINGS: Surgical changes and devices: An endotracheal tube is seen, with the tip 6 cm above the bella. The tip of the gastric tube is not seen on this study, yet is believed to overlie the mid stomach. The side hole is seen several cm below the level of diaphragm. Lower cervical spine postoperative hardware can be seen. Lungs and pleura: On this supine examination, no large pneumothorax is seen. There is a left-sided pleural effusion, with trace blunting of the right costophrenic angle. No focal areas of lung consolidation are seen. Generalized interstitial prominence can be seen. Mediastinum: Mediastinal contours appear normal. Heart size is moderately enlarged. Bones and chest wall: No suspicious bony lesions. Overlying soft tissues appear unremarkable. IMPRESSION: The tip of the gastric tube is not seen on this study, yet is believed to overlie the mid stomach. Moderate cardiomegaly with bilateral pleural effusions and interstitial prominence. Dictated by: Martín Forde M.D. on 10/21/2023 at 15:13 Approved by: Martín Forde M.D. on 10/21/2023 at 15:15
[2023-10-21 16:32] LABS: Alanine Aminotransferase 25 IU/L (<50); Albumin 3.8 g/dL (3.5-5.0); Albumin Globulin Ratio 1.3 (1.0-2.8); Alkaline Phosphatase 76 U/L (38-126); Aspartate Aminotransferase 40 IU/L (17-59); BUN Creatinine Ratio 25.7 (6-22); Bilirubin Total 0.5 mg/dL (0.2-1.3); Blood Urea Nitrogen 59 mg/dL (9-20); Calcium 8.6 mg/dL (8.4-10.2); Chloride 95 mmol/L (98-107); Creatine Kinase 726 U/L (55-170); Estimated Glomerular Filt Rate 30 mL/min (>60); Ethanol (ETOH) < 10 mg/dL; Glucose 117 mg/dL (80-110); HEMOLYSIS < 15 (0-50); Lipase 106 U/L (23-300); Potassium 4.4 mmol/L (3.4-5.1); Sodium 141 mmol/L (137-145); Total Protein 6.8 g/dL (6.3-8.2)
[2023-10-21 16:40] LABS: Troponin I 0.058 ng/mL (0.01-0.034)
[2023-10-21 16:48] LABS: Carbon Dioxide > 40 mmol/L (22-32)
[2023-10-21] MEDS: KETAMINE 500 MG/5 ML INJ 100 MG IV ×2 (16:53→17:04)
[2023-10-21 17:00] LABS: INR 0.9 (0.9-1.3); PTT Partial Thromboplastin Tim 34 SECONDS (25.1-36.5); Prothrombin Time 10.6 SECONDS (9.4-12.5)
[2023-10-21 17:08] LABS: Adenovirus Not Detected (Not Detect); B. parapertussis Not Detected (Not Detecte); Bordetella pertussis Not Detected (Not Detect); Chlamydophila pneumoniae Not Detected (Not Detect); Coronavirus 229E Not Detected (Not Detect); Coronavirus HKU1 Not Detected (Not Detect); Coronavirus NL 63 Not Detected (Not Detect); Coronavirus OC43 Not Detected (Not Detect); Human Metapneumovirus Not Detected (Not Detect); Human Rhinovirus/Enterovirus Not Detected (Not Detect); Influenza A Not Detected (Not Detect); Influenza B Not Detected (Not Detect); Mycoplasma pneumoniae Not Detected (Not Detect); Parainfluenza Virus 1 Not Detected (Not Detect); Parainfluenza Virus 2 Not Detected (Not Detect); Parainfluenza Virus 3 Not Detected (Not Detect); Parainfluenza Virus 4 Not Detected (Not Detect); Respiratory Syncytial Virus Not Detected (Not Detect); SARS- CoV-2 Not Detected (Not Detecte)
[2023-10-21 17:18] LABS: pH ABG 7.31 (7.35-7.45)
[2023-10-21 17:19] LABS: Base Excess ABG 7.8 mmol/L (-2-3); HCO3 ABG 38 mmol/L (23-27); PCO2 ABG 73.5 mmHg (35-45); PO2 ABG 55 mmHg (80-100)
[2023-10-21] MEDS: fentaNYL 1,000 MCG in DEXTROSE 5% IN WATER 230 ML 22.9 MCG IV (17:19)
[2023-10-21 17:20] LABS: Fractionated Inspired Oxygen 100; Oxygen Saturation ABG 84 % (95-100); TCO2 ABG 39 mmol/L (23-27)
[2023-10-21 17:21] LABS: Allen Test for ABG Passed? Yes, Passed; Delivery System VENT
[2023-10-21] MEDS: MIDAZOLAM 50 MG in DEXTROSE 5 % IN WATER 40 ML IV (17:23)
[2023-10-21 17:28] LABS: NT-proBNP (BNP-Adult 18+) 8510 pg/mL (<125)
[2023-10-21 17:34] LABS: Procalcitonin 0.363 ng/mL (<0.5)
[2023-10-21] MEDS: SODIUM CHLORIDE 0.9% 1,000 ML 125 ML IV (17:42)
[2023-10-21] MEDS: NOREPINEPHRINE BITARTRATE/D5W 4 MG/250 ML PLAST..BAG 49.1 MG IV (18:07)
[2023-10-21 18:29] LABS: Creatine Kinase 700 U/L (55-170)
[2023-10-21 18:41] LABS: Troponin I 0.065 ng/mL (0.01-0.034)
[2023-10-21] MEDS: propofoL 1,000 MG/100 ML VIAL 39.3 MG IV (18:47)
--- NOTE | 2023-10-21 19:03 | DI.RAD.S_ITS ---
PROCEDURE: XR CHEST 1V INDICATIONS: verify central line placement TECHNIQUE: One view of the chest was acquired. COMPARISON: [facility], CR, XR CHEST 1V, 10/21/2023, 15:58. [facility], CR, XR CHEST 1V, 10/21/2023, 14:13. FINDINGS: Surgical changes and devices: Right internal jugular catheter placement with tip projecting over the lower superior vena cava near the cavoatrial junction. Endotracheal and enteric tubes are seen in stable positions. Cervical spinal fusion hardware again noted. Lungs and pleura: Patient is rotated towards the left. Left basilar opacities and pleural effusion do not appear significantly changed. Probable small right pleural effusion. No pneumothorax is seen. Mediastinum: Enlarged cardiac silhouette. Bones and chest wall: No suspicious bony lesions. Overlying soft tissues appear unremarkable. IMPRESSION: Right internal jugular catheter is seen in satisfactory position. Stable endotracheal and enteric tubes. Approved by: Juvenal Olivia M.D. on 10/21/2023 at 19:53
[2023-10-21] MEDS: FUROSEMIDE 40 MG/4 ML VIAL 60 MG IV (19:10)
--- NOTE | 2023-10-21 19:29 | PC.NURSE ---
Spoke with Blas, pt's brother, and updated brother on plan of care.
[2023-10-21] MEDS: BUMETANIDE 1 MG/4 ML VIAL 2 MG IV (20:19)
--- NOTE | 2023-10-21 21:33 | PC.NURSE ---
Blas Hauser, pt's brother called and updated on patient pending transfer to [facility].
[2023-10-21] MEDS: propofoL 1,000 MG/100 ML VIAL 15.785 MG IV (21:57)
[2023-10-21] MEDS: NOREPINEPHRINE BITARTRATE/D5W 4 MG/250 ML PLAST..BAG 36.8 MG IV (22:14)
[2023-10-24 22:53] LABS: Base Excess ABG 4.1 mmol/L (-2-3)
== END 2023-10-21 22:48 | disposition short-term general hospital (02) ==
PROVIDERS: Emergency Provider Emergency Medicine; Family Provider Internal Medicine; PCP Internal Medicine
DX: J96.02 Acute respiratory failure with hypercapnia (principal); J96.01 Acute respiratory failure with hypoxia; N17.9 Acute kidney failure, unspecified; J90 Pleural effusion, not elsewhere classified; Z11.52 Encounter for screening for COVID-19
CPT/HCPCS: 36415; 36569; 36600; 70450; 71045; 80053; 80305; 80320; 81001; 82550; 82962; 83605; 83690; 83735; 83880; 84145; 84484; 85025; 85610; 85730; 87040; 87633; 93005; 93010; 94002; 94799; 96361; 96365; 96366; 96367; 96368; 96375; 99152; 99153; 99285; 99291; J0696; J1940; J2250; J2704; J2919; J3010

== ENCOUNTER → 2023-11-05 11:06 | Outpatient (CLI) | payer MEDICARE, SELFPAY ==
[2023-11-05 10:56] VITALS: PULSE 90; RESP 20; RESP 7; O2SAT 96; BMI 49.0
[2023-11-05 12:29] LABS: BUN Creatinine Ratio 31.9 (6-22); Blood Urea Nitrogen 36 mg/dL (9-20); Calcium 8.7 mg/dL (8.4-10.2); Carbon Dioxide 32 mmol/L (22-32); Chloride 95 mmol/L (98-107); Estimated Glomerular Filt Rate > 60 mL/min (>60); Glucose 108 mg/dL (80-110); HEMOLYSIS < 15 (0-50); Magnesium 1.3 mg/dL (1.6-2.3); Potassium 3.6 mmol/L (3.4-5.1); Sodium 134 mmol/L (137-145)
[2023-11-05 12:34] LABS: NT-proBNP (BNP-Adult 18+) 123 pg/mL (<125)
[2023-11-05 12:52] LABS: Prostate Specific Antigen < 0.064 ng/mL (0.10-4.00)
== END ==
PROVIDERS: Family Provider Internal Medicine; PCP Internal Medicine; Referring Provider Physician Assistant Medical; Visit Provider Physician Assistant Medical
DX: I50.32 Chronic diastolic (congestive) heart failure (principal); Z85.46 Personal history of malignant neoplasm of prostate; J96.11 Chronic respiratory failure with hypoxia; I10 Essential (primary) hypertension
CPT/HCPCS: 36415; 80048; 83735; 83880; 84153

== ENCOUNTER 2023-11-29 12:43 | Emergency (ER) | payer MEDICARE, SELFPAY ==
[2023-11-05 10:56] VITALS: PULSE 90; RESP 20; RESP 7; O2SAT 96; BMI 49.0
[2023-11-29] VITALS (11 sets, daily range): BP systolic 106–184; BP diastolic 57–96; PULSE 103–117; RESP 22; TEMP 36.8; O2SAT 90–94; BMI 48.0
--- NOTE | 2023-11-29 13:54 | DI.CT.S_ITS ---
PROCEDURE: CT CHEST ABD PEL WO CON INDICATIONS: Trauma/blunt injury/left side pain TECHNIQUE: After the administration of oral contrast, 5 mm thick sections acquired from the lung apices to the symphysis pubis. 5 mm thick coronal and sagittal reformats acquired, with additional 7 mm coronal MIP reformats through the lungs. For radiation dose reduction, the following was used: automated exposure control, adjustment of mA and/or kV according to patient size. COMPARISON: [facility], CT, CT ABDOMEN PELVIS W CON, 02/18/2020, 17:34. [facility], CT, CT ANGIO CHEST PE PROTOCOL, 03/27/2021, 10:01. FINDINGS: Image quality: Diagnostic. Evaluation of the solid parenchymal organs is limited without IV contrast. CHEST: Lower Neck: No enlarged lymph nodes. Thyroid: No thyroid nodules which require sonographic follow up, per consensus guidelines. Axillae: No enlarged lymph nodes. Chest Wall: Unremarkable. Bones: Prior left-sided rib fractures. No acute fracture seen. ACDF. Minimal height loss at T3. Lungs and Pleura: No pneumothorax. Trace right pleural effusion. No consolidation or suspicious nodules. Right upper lobe pulmonary nodule measuring 0.3 cm, (4/115). Heart: Heart size is normal. No pericardial effusion. Thoracic Vessels: The aorta and pulmonary arteries demonstrate normal size. Mediastinum and Damaris: No enlarged lymph nodes. Esophagus: No wall thickening. Small hiatal hernia. Trace fluid in the hernia sac, decreased. ABDOMEN: Liver: No perihepatic fluid. No obvious hypodensity. Gallbladder: No radiopaque gallstones or wall thickening. Biliary ducts: No biliary dilation. Pancreas: No ductal dilation. Spleen: Mostly absent. Appears unchanged. No fluid. Adrenal Glands: No adrenal nodules. Kidneys and Ureters: No hydronephrosis. No obvious mass. Stomach and Bowel: Normal colonic caliber, without significant wall thickening. Duodenal diverticulum. Diverticulosis. The appendix is not seen. Peritoneum: No abnormal intraperitoneal fluid. No free air. Ventral Wall: No hernia. Abdominal Nodes: No retroperitoneal or mesenteric adenopathy by size criteria. Vessels: Aorta and inferior vena cava are normal in size. PELVIS: Pelvic Organs: Prostate brachytherapy seeds. Bladder: Unremarkable. Pelvic Nodes: Left external iliac lymph node measuring 1.3 cm, (3/109), unchanged since 2019. enlarged lymph nodes. Miscellaneous: No inguinal hernias are seen. Bones: No aggressive osseous abnormality. Minimal sclerosis adjacent to the left SI joint. Bone island at the left sacrum. These findings are unchanged. Multilevel DDD. IMPRESSION: Evaluation is somewhat limited without IV contrast. No acute traumatic injury identified. No fracture. Trace right pleural effusion. Spleen is mostly absent. Prostate brachytherapy seeds. No convincing metastatic disease. Dictated by: Phani Bailey M.D. on 11/29/2023 at 15:20 Approved by: Phani Bailey M.D. on 11/29/2023 at 15:36
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
--- NOTE | 2023-11-29 14:04 | PC.NURSE ---
Patient is satting 90-91% on RA, patient has know COPD. Does not appear to be in any acute distress, respirations are even, provider notified and ok'd patient to remain on RA.
== END 2023-11-29 16:00 | disposition home or self-care (01) ==
PROVIDERS: Emergency Provider Emergency Medicine; Family Provider Internal Medicine; PCP Internal Medicine
DX: S20.212A Contusion of left front wall of thorax, initial encounter (principal); S80.212A Abrasion, left knee, initial encounter; J90 Pleural effusion, not elsewhere classified; W05.1XXA Fall from non-moving nonmotorized scooter, initial encounter
CPT/HCPCS: 71250; 74176; 99281; 99284

== ENCOUNTER → 2023-12-03 09:25 | Outpatient (CLI) | payer MEDICARE, SELFPAY ==
[2023-11-05 10:56] VITALS: PULSE 90; RESP 20; RESP 7; O2SAT 96; BMI 49.0
== END ==
LOC: CAR 09:29
PROVIDERS: Family Provider Internal Medicine; PCP Internal Medicine; Referring Provider Internal Medicine; Visit Provider Internal Medicine
DX: R00.0 Tachycardia, unspecified (principal)
CPT/HCPCS: 93242

== ENCOUNTER → 2024-02-21 18:06 | Outpatient (CLI) | payer MEDICARE, OTHER, SELFPAY ==
[2023-11-05 10:56] VITALS: PULSE 90; RESP 20; RESP 7; O2SAT 96; BMI 49.0
--- NOTE | 2024-02-21 18:09 | DI.MRI.S_ITS ---
PROCEDURE: MR SHOULDER LT WO CON INDICATIONS: IMPINGEMENT SYNDROME LEFT SHOULDER TECHNIQUE: Noncontrast oblique coronal T2 fast spin echo with fat saturation, oblique sagittal T1 spin echo and T2 fast spin echo with fat saturation, axial T1 spin echo and T2 fast spin echo with fat saturation through the shoulder. COMPARISON: [facility], CT, CT CHEST ABD PEL WO CON, 11/29/2023, 14:02. [facility], CR, XR SHOULDER 2+ VIEWS LEFT, 02/26/2023, 8:48. FINDINGS: Image quality: Excellent. Rotator cuff: The supraspinatus, and infraspinatus tendon are unremarkable. The tendon of the teres minor is intact. The tendon of the superior fiber the subscapularis is not well visualized at the lesser tuberosity, likely fully torn. No muscle edema. Severe fatty atrophy of the superior fiber of the subscapularis. Bones and bursae: Mild degenerative changes of the acromioclavicular joint. Type 2 acromion. No os acromiale. Mild subacromial/subdeltoid bursitis. Chronic deformity at the humeral neck, likely secondary to healed fracture. There is multifocal linear T2 hyperintensity within the humeral neck, which may represent small amount intra osseous fluid, nonspecific. Severe degenerative change of the glenohumeral joint with complete chondral denudation of the humeral head and the inferior aspect of the glenoid. Large osteophytosis of the humeral head. Multifocal subchondral cystic changes in the superior glenoid and the superior humeral head. No acute fracture. Capsule and soft tissues: Diffuse tear and degeneration. Small superior paralabral cyst. The extra-articular biceps tendon is intact. The intra-articular biceps tendon is grossly intact as well. No significant glenohumeral effusion. No subcoracoid bursitis. No intra-articular body. Left axillary lymphadenopathy, new from prior CT on 11/29/2023. IMPRESSION: 1. Healed humeral neck fracture with small amount intraosseous fluid in the humeral neck. 2. 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 3. Full-thickness tear of the superior fiber of the subscapularis with severe fatty atrophy. 4. Left axillary lymphadenopathy, new from prior CT on 11/29/2023. Recommend further evaluation with CT chest. Dictated by: Laurita Alexis M.D. on 02/22/2024 at 14:05 Approved by: Laurita Alexis M.D. on 02/22/2024 at 14:16
== END ==
LOC: MRI 18:08
PROVIDERS: Family Provider Internal Medicine; PCP Internal Medicine; Referring Provider Orthopaedic Surgery; Visit Provider Orthopaedic Surgery
DX: M75.112 Incomplete rotator cuff tear or rupture of left shoulder, not specified as traumatic (principal); M75.42 Impingement syndrome of left shoulder; R59.0 Localized enlarged lymph nodes; S42.212S Unspecified displaced fracture of surgical neck of left humerus, sequela
CPT/HCPCS: 73221

== ENCOUNTER 2024-03-24 08:30 | Outpatient (RCR) | payer MEDICARE, OTHER, SELFPAY ==
[2023-11-05 10:56] VITALS: PULSE 90; RESP 20; RESP 7; O2SAT 96; BMI 49.0
== END 2024-03-24 10:30 ==
LOC: PUL 08:30
PROVIDERS: Family Provider Internal Medicine; PCP Internal Medicine; Referring Provider Internal Medicine Critical Care Medicine; Visit Provider Internal Medicine Critical Care Medicine
DX: J44.9 Chronic obstructive pulmonary disease, unspecified (principal)
CPT/HCPCS: 94626

== ENCOUNTER → 2024-10-13 14:13 | Outpatient (CLI) | payer MEDICARE, OTHER, SELFPAY ==
[2023-11-05 10:56] VITALS: PULSE 90; RESP 20; RESP 7; O2SAT 96; BMI 49.0
[2024-10-13 15:32] LABS: Alanine Aminotransferase 16 IU/L (<50); Albumin 4.0 g/dL (3.5-5.0); Albumin Globulin Ratio 1.3 (1.0-2.8); Alkaline Phosphatase 73 U/L (38-126); Blood Urea Nitrogen 38 mg/dL (9-20); Calcium 9.3 mg/dL (8.4-10.2); Carbon Dioxide 35 mmol/L (22-32); Chloride 98 mmol/L (98-107); Estimated Glomerular Filt Rate > 60 mL/min (>60); Globulin 3.0 g/dL (1.7-4.1); Glucose 77 mg/dL (70-99); HEMOLYSIS < 15 (0-50); Magnesium 1.4 mg/dL (1.6-2.3); Potassium 5.1 mmol/L (3.4-5.1); Sodium 139 mmol/L (137-145); Total Protein 7.0 g/dL (6.3-8.2)
[2024-10-13 15:48] LABS: Free T4, Direct Thyroxine 0.97 ng/dL (0.78-2.19)
[2024-10-13 16:01] LABS: Thyroid Stimulating Hormone 1.54 uIU/mL (0.47-4.68)
== END ==
PROVIDERS: Family Provider Internal Medicine; PCP Internal Medicine; Referring Provider Internal Medicine; Visit Provider Internal Medicine
DX: I10 Essential (primary) hypertension (principal); E03.9 Hypothyroidism, unspecified; J44.9 Chronic obstructive pulmonary disease, unspecified
CPT/HCPCS: 36415; 80053; 83735; 84439; 84443

== ENCOUNTER → 2024-12-23 11:00 | Outpatient (CLI) | payer MEDICARE, OTHER, SELFPAY ==
[2024-11-14 22:09] VITALS: BMI 34.7
[2024-11-17 03:45] VITALS: RESP 0
[2024-11-25 03:25] VITALS: PULSE 91; RESP 18; O2SAT 93
[2024-12-23 11:42] LABS: Add Manual Diff / Slide Review NO; Hematocrit 42.4 % (41-53); Hemoglobin 14.0 g/dL (13.5-17.5); Lymphocytes Absolute Auto 2200 /uL (1100-4500); Mean Corpuscular HGB Conc 32.9 % (30-36); Mean Corpuscular Hemoglobin 29.4 PG (26-34); Mean Corpuscular Volume 89.2 fL (80-100); Platelet Count 462 X10^3/uL (150-400)
[2024-12-23 11:59] LABS: Alanine Aminotransferase 13 IU/L (<50); Albumin 4.2 g/dL (3.5-5.0); Albumin Globulin Ratio 1.1 (1.0-2.8); Alkaline Phosphatase 68 U/L (38-126); Blood Urea Nitrogen 33 mg/dL (9-20); Calcium 9.5 mg/dL (8.4-10.2); Carbon Dioxide 30 mmol/L (22-32); Chloride 95 mmol/L (98-107); Estimated Glomerular Filt Rate 57 mL/min (>60); Globulin 4.0 g/dL (1.7-4.1); Glucose 91 mg/dL (70-99); HEMOLYSIS 92 (0-50); Magnesium 1.2 mg/dL (1.6-2.3); Potassium 4.9 mmol/L (3.4-5.1); Sodium 136 mmol/L (137-145); Total Protein 8.2 g/dL (6.3-8.2)
[2024-12-23 12:07] LABS: NT-proBNP (BNP-Adult 18+) 136 pg/mL (<125)
== END ==
PROVIDERS: Family Provider Internal Medicine; PCP Internal Medicine; Referring Provider Internal Medicine; Visit Provider Internal Medicine
DX: I10 Essential (primary) hypertension (principal); I50.32 Chronic diastolic (congestive) heart failure; J44.9 Chronic obstructive pulmonary disease, unspecified; D72.829 Elevated white blood cell count, unspecified
CPT/HCPCS: 36415; 80053; 83735; 83880; 85025

== ENCOUNTER → 2025-01-13 08:57 | Outpatient (CLI) | payer MEDICARE, OTHER, SELFPAY ==
[2024-11-14 22:09] VITALS: BMI 34.7
[2024-11-17 03:45] VITALS: RESP 0
[2024-11-25 03:25] VITALS: PULSE 91; RESP 18; O2SAT 93
[2025-01-13 11:01] LABS: Prostate Specific Antigen < 0.064 ng/mL (0.10-4.00)
== END ==
PROVIDERS: PCP Internal Medicine; Referring Provider Internal Medicine; Visit Provider Physician Assistant Medical
DX: Z85.46 Personal history of malignant neoplasm of prostate (principal)
CPT/HCPCS: 36415; 84153

== ENCOUNTER 2025-03-04 08:30 | Outpatient (RCR) | payer MEDICARE, OTHER, SELFPAY ==
[2024-11-14 22:09] VITALS: BMI 34.7
[2024-11-17 03:45] VITALS: RESP 0
[2024-11-25 03:25] VITALS: PULSE 91; RESP 18; O2SAT 93
== END 2025-03-04 10:30 ==
LOC: PUL 08:30
PROVIDERS: Family Provider Internal Medicine; PCP Internal Medicine; Referring Provider Internal Medicine; Visit Provider Internal Medicine
DX: J45.50 Severe persistent asthma, uncomplicated (principal); J96.11 Chronic respiratory failure with hypoxia; J96.12 Chronic respiratory failure with hypercapnia; I50.32 Chronic diastolic (congestive) heart failure; J44.9 Chronic obstructive pulmonary disease, unspecified; E66.2 Morbid (severe) obesity with alveolar hypoventilation
CPT/HCPCS: 94625; 94626

== ENCOUNTER → 2025-03-25 11:14 | Outpatient (CLI) | payer MEDICARE, SELFPAY ==
[2024-11-14 22:09] VITALS: BMI 34.7
[2024-11-17 03:45] VITALS: RESP 0
[2024-11-25 03:25] VITALS: PULSE 91; RESP 18; O2SAT 93
[2025-03-25 12:34] LABS: Add Manual Diff / Slide Review NO; Hematocrit 42.1 % (41-53); Hemoglobin 13.7 g/dL (13.5-17.5); Lymphocytes Absolute Auto 2000 /uL (1100-4500); Mean Corpuscular HGB Conc 32.6 % (30-36); Mean Corpuscular Hemoglobin 29.2 PG (26-34); Mean Corpuscular Volume 89.4 fL (80-100); Platelet Count 500 X10^3/uL (150-400)
[2025-03-25 13:15] LABS: Alanine Aminotransferase 14 IU/L (<50); Albumin 4.1 g/dL (3.5-5.0); Albumin Globulin Ratio 1.3 (1.0-2.8); Alkaline Phosphatase 81 U/L (38-126); Blood Urea Nitrogen 26 mg/dL (9-20); Calcium 8.9 mg/dL (8.4-10.2); Carbon Dioxide 28 mmol/L (22-32); Chloride 102 mmol/L (98-107); Estimated Glomerular Filt Rate > 60 mL/min (>60); Globulin 3.1 g/dL (1.7-4.1); Glucose 165 mg/dL (70-99); HEMOLYSIS 32 (0-50); Magnesium 1.4 mg/dL (1.6-2.3); Potassium 4.5 mmol/L (3.4-5.1); Sodium 140 mmol/L (137-145); Total Protein 7.2 g/dL (6.3-8.2)
[2025-03-25 13:48] LABS: TSH w/ Reflex to FT4 2.03 uIU/mL (0.47-4.68)
== END ==
PROVIDERS: PCP Internal Medicine; Referring Provider Internal Medicine; Visit Provider Internal Medicine
DX: I10 Essential (primary) hypertension (principal); E03.9 Hypothyroidism, unspecified; D72.829 Elevated white blood cell count, unspecified; D47.3 Essential (hemorrhagic) thrombocythemia
CPT/HCPCS: 36415; 80053; 83735; 84443; 85025